=== PATIENT | male | born 1950 | race Caucasian/White ===

== ENCOUNTER 2017-09-05 15:00 | Outpatient (RCR) | payer MEDICARE, OTHER, SELFPAY | END 2017-09-06 | LOC: ST 15:00 | PROVIDERS: PCP Emergency Medicine; Visit Provider Emergency Medicine | DX: R13.10 Dysphagia, unspecified (principal) | CPT/HCPCS: G8996; G8997; G8998; 92526; 92610 ==

== ENCOUNTER → 2017-09-10 10:08 | Outpatient (POV) | payer MEDICARE, OTHER, SELFPAY | PROVIDERS: PCP Emergency Medicine; Visit Provider Otolaryngology | DX: Z00.00 Encounter for general adult medical examination without abnormal findings (principal) ==

== ENCOUNTER → 2017-12-10 09:04 | Outpatient (POV) | payer MEDICARE, OTHER, SELFPAY | PROVIDERS: PCP Emergency Medicine; Visit Provider Otolaryngology | DX: Z00.00 Encounter for general adult medical examination without abnormal findings (principal) ==

== ENCOUNTER → 2018-05-14 08:41 | Outpatient (CLI) | payer MEDICARE, OTHER, SELFPAY ==
[2018-05-14 08:55] LABS: Microscopic, Urine URINE MICROSCOPIC (MICROSCOPIC)
[2018-05-14 09:39] LABS: Appearance,Urine CLEAR (Clear); Bilirubin,Urine Negative (Negative); Blood, Urine 1+ (Negative); Color,Urine YELLOW (Yellow); Glucose,Urine (UA) Negative (Negative); Ketones,Urine Negative (Negative); Leukocyte Esterase,Urine Negative (Negative); Nitrate,Urine Negative (Negative); Protein,Urine Negative (Negative); Specific Gravity, Urine 1.025 (1.005-1.030)
[2018-05-14 09:47] LABS: Creatinine,Urine Random 231 mg/dL (20-320); Total Protein,Urine Random 31.5 mg/dL (0.0-11.9)
[2018-05-14 09:49] LABS: Basophils % 0.3 % (0.1-2.0); Hematocrit 33.3 % (42.0-52.0); Hemoglobin 11.1 g/dL (14.1-18.0); Lymphocytes # 0.7 K/mm3 (0.7-4.5); Lymphocytes % 15.8 K/mm3 (10-50); Mean Corpuscular HGB Conc 33.5 g/dL (31.8-35.4); Mean Corpuscular Hemoglobin 32.8 pg (27.0-31.2); Mean Corpuscular Volume 98.1 fl (80-94); Mean Platelet Volume 7.4 fl (7.4-10.4); Monocytes # 0.3 K/mm3 (0.1-1.0); Monocytes % 6.7 % (1.7-9.3); Neutrophils # 3.3 K/mm3 (1.8-7.8); Neutrophils % 76.2 % (37.0-80.0); Platelet Count 165 K/mm3 (142-424); Red Blood Count 3.39 M/mm3 (4.60-6.20); Red Cell Distribution Width 15.1 % (11.5-17.5); White Blood Count 4.4 K/mm3 (4.8-10.8)
[2018-05-14 09:50] LABS: Bacteria,Urine 1+ /lpf
[2018-05-14 10:26] LABS: Albumin Level 3.7 gm/dL (3.4-5.0); Anion Gap 11.5 mEq/L (5-15); Blood Urea Nitrogen 26 mg/dL (7-18); Calcium 8.9 mg/dL (8.5-10.1); Carbon Dioxide 29 mmol/L (21.0-32.0); Chloride 105 mmol/L (98-107); Creatinine,Serum 1.65 mg/dL (0.70-1.30); Estimated Glomerular Filt Rate 42 ml/min (>60); GFR (African American) 50 ML/MIN (>60); Glucose 115 mg/dL (74-106); Phosphorous 3.6 mg/dL (2.4-4.9); Sodium 141 mmol/L (136-145)
[2018-05-14 10:27] LABS: Potassium 4.5 mmoL/L (3.5-5.1)
[2018-05-15 20:02] LABS: Vitamin D 25 Hydroxy 28.7 ng/mL (30.0-100.0)
== END ==
PROVIDERS: PCP Emergency Medicine; Visit Provider Internal Medicine Nephrology
DX: N18.3 Chronic kidney disease, stage 3 (moderate) (principal)
CPT/HCPCS: 36415; 80069; 81001; 82570; 82652; 84155; 85025

== ENCOUNTER → 2018-05-15 12:33 | Outpatient (POV) | payer MEDICARE, OTHER, SELFPAY | PROVIDERS: PCP Emergency Medicine; Visit Provider Internal Medicine Nephrology | DX: Z00.00 Encounter for general adult medical examination without abnormal findings (principal) ==

== ENCOUNTER → 2018-05-19 10:25 | Outpatient (CLI) | payer MEDICARE, OTHER, SELFPAY ==
--- NOTE | 2018-05-19 10:28 | US_ITS ---
US kidney retroperitoneal comp HISTORY: ITS.REASON: HEMATURIA,HISTORY OF RENAL CELL CANCER ORDERING PHYSICIAN: Everardo Waters MD PATIENT AGE: 67 years Comparison: None FINDINGS: There has been prior left nephrectomy. The right kidney has an unremarkable appearance at 13 x 6 cm. The cortex is preserved. There is a 1 cm cyst projecting off the mid aspect of the right kidney anteriorly. No suspicious renal mass evident a 4.7 x 4 cm cyst projects off the lower pole the right kidney exophytic in nature. No solid renal lesions apparent. No obvious renal calculi. No hydronephrosis. IMPRESSION: 1. There are 2 renal cysts at 1 and 5 cm 2. Prior left nephrectomy
== END ==
PROVIDERS: PCP Emergency Medicine; Visit Provider Urology
DX: R31.9 Hematuria, unspecified (principal); Z85.528 Personal history of other malignant neoplasm of kidney
CPT/HCPCS: 76770

== ENCOUNTER → 2018-06-27 11:06 | Outpatient (CLI) | payer MEDICARE, OTHER, SELFPAY ==
--- NOTE | 2018-06-27 11:13 | MR_ITS ---
MR head/brain wo con HISTORY: ITS.REASON: parkinsons disease ORDERING PHYSICIAN: Genoveva Kwok MD PATIENT AGE: 67 years Comparison: None TECHNIQUE: Standard multiplanar multiecho sequences are performed without contrast. FINDINGS: No midline shift, mass effect, intracranial hemorrhage, or hydrocephalus is evident. There is generalized atrophy with scattered periventricular and subcortical T2 white matter hyperintensities. 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 The cerebellopontine angles, cerebellum, and brainstem are unremarkable. No acute infarction evident. The pituitary and optic chiasm and craniocervical junction are unremarkable. No mastoid effusion or sinus air-fluid level. IMPRESSION: 1. Diffuse atrophy. 2. There are scattered periventricular and subcortical T2 white matter hyperintensities which may be due to ischemic gliotic change from microvascular disease with old bilateral lacunar infarctions 3. No acute intracranial findings.
== END ==
PROVIDERS: PCP Emergency Medicine; Visit Provider Specialist
DX: G20 Parkinson's disease (principal); K11.7 Disturbances of salivary secretion
CPT/HCPCS: 70551

== ENCOUNTER 2018-09-10 12:11 | Inpatient (IN) ==
--- NOTE | 2018-09-10 13:06 | Emergency Department Note ---
ED Disposition Clinical Impression: Dehydration Acute renal failure Qualifiers: Acute renal failure type: unspecified Qualified Code(s): N17.9 - Acute kidney failure, unspecified Disposition: Still a Patient Condition on Discharge: Fair Referrals: Charly Barber APRN [Primary Care Provider] - - Critical Care Critical Care Time: Yes Attestation: On 09/10/18, the high probability of a clinically significant, sudden or life threatening deterioration of the following system(s) required my full and direct attention, intervention and personal management. The time I documented below is in addition to time spent performing reported procedures but includes the following listed in this critical care notation. Total Critical Care Time: 30 Vital system(s) involved:: Renal Failure My critical care processes included: Assessment & monitoring of V/S, Initial and Re-exams, Data Review/Interpretation, Coordinating Care, Medication Orders and management, Documentation Medical Decision Making - Antoine Inquiry Pt receiving controlled substance: No Vital Signs: 09/10/18 12:25 Temperature 98 F Temperature Source Oral Pulse Rate [Left Radial] 62 Respiratory Rate 16 Blood Pressure [Right Arm] 120/70 Blood Pressure Mean [Right Arm] 86 Blood Pressure Source [Right Arm] Automatic Cuff Blood Pressure Position [Right Arm] Sitting 02 Sat by Pulse Oximetry 98 Oxygen Delivery Method Room Air - Lab Data Lab Results 09/10/18 13:25: WBC 6.5, RBC 3.84 L, Hgb 12.0 L, Hct 35.2 L, MCV 91.6, MCH 31.1, MCHC 34.0, RDW 13.9, Plt Count 144, MPV 9.4, Neut % (Auto) 81.2 H, Lymph % (Auto) 12.1, Carbon % (Auto) 5.4, Eos % (Auto) 0.9, Baso % (Auto) 0.4, Neut # (Auto) 5.3, Lymph # (Auto) 0.8, Carbon # (Auto) 0.4, Eos # (Auto) 0.1, Baso # (Auto) 0.0 09/10/18 13:25: Sodium 135 L, Potassium 4.4, Chloride 96 L, Carbon Dioxide 30, Anion Gap 13.4, BUN 54 H, Creatinine 2.93 H, Estimated Creat Clear 32, Estimated GFR 21 L, Est GFR ( Amer) 26 L, Glucose 123 H, Calcium 9.0, Total Bilirubin 1.3 H, AST 13 L, ALT 10 L, Alkaline Phosphatase 109, Troponin I < 0.02, Total Protein 7.5, Albumin 4.2, Globulin 3.3 H, Albumin/Globulin Ratio 1.3 Result diagrams: 09/10/18 13:25 09/10/18 13:25 Orders (Tests/Meds): ED MEDICATIONS Generic Name Dose Route Start Last Admin Trade Name Freq PRN Reason Stop Dose Admin Sodium Chloride 10 ml 09/10/18 12:41 Saline Flush 10ml Syringe IV 10/10/18 12:40 NEEDED PRN Maintain IV Site Discontinued Medications Generic Name Dose Route Start Last Admin Trade Name Freq PRN Reason Stop Dose Admin Sodium Chloride 1,000 ml 09/10/18 13:19 Sod Chlor 0.9% 1000ml Bag IV 09/10/18 13:20 BOLUS ONE ORDERS Category Date Time Status Urinalysis and Microscopic Stat Lab 09/10/18 13:20 Ordered ECG Request by /Nse Stat Y 09/10/18 12:40 Ordered - Radiology Data #1 Image(s): Chest Image Reviewed: Yes I have reviewed radiologist's interpretation Preliminary Findings: Normal/NAD - ECG Data Tracing #1 EKG interpreted by Kervin Theodore MD: Rhythm: sinus Rate: 61 [place]: normal Ectopy: none Conduction: normal ST Segment Changes: none T Wave Changes: none Q Waves: none No evidence of acute ischemia or injury - Physician Consults Physician Consulted: Charly Barber NP for Dr. Garcia Time: 14:09 Reason -: Admission Comment/Response: Agrees to admit the patient to the hospital. We discussed the patient's clinical information, including history, exam, laboratory and radiology results and ED course. Per hospital procedure, I will write temporary bridge inpatient orders on the patient. Specific orders requested by the admitting physician: Admit to Dr. Garcia, hydration General Adult HPI - General Chief complaint: Nausea/Vomiting/Diarrhea Stated complaint: no appetite dizzy nauseated Time Seen by Provider: 09/10/18 13:06 Mode of Arrival: Ambulatory Limitations: No Limitations Description of Symptoms (Recalled from ER Triage Doc. by RN): to ed per pvt car pt sent by pcp to ed for eval due to nausea, vomiting, fatique x several weeks pt's SO states pt dx with parkinson's 2-3months ago, meds "made him sick" pt has been taken off all parkinson's meds since Saturday 09/08. nail beds cyanotic cap refill 4sec - History of Present Illness HPI narrative: History obtained from patient and . Patient sent into the emergency room from the office by Charly Barber NP for Dr. Garcia, where he was being seen for an office visit. He was diagnosed with Parkinson's disease a couple of months ago. He has been started on medications and after starting the medications has had no appetite, nausea, weight loss of 30 pounds over 5 weeks, urine and stool are dark and smelly. Only drinking 1 lemon [place] soda a day. Saw his neurologist on Saturday 2 days ago and Parkinson's medications were stopped due to the side effects. states that they were told the medication should be out of his system within a couple of days and the nausea should be gone. This has not happened, therefore they followed up with his primary care provider who sent him to the emergency room. also states that primary care provider wanted to get a colonoscopy. states only has one kidney. - Related Data Home Medications Medication Instructions Recorded Confirmed aspirin 81 mg tablet,delayed 81 mg PO QDAY 09/30/17 09/10/18 release hydrochlorothiazide 25 mg tablet 25 mg PO QDAY 09/30/17 09/10/18 lisinopril 40 mg tablet 40 mg PO QDAY 09/30/17 09/10/18 Indapamide [Lozol 2.5mg tablet] 2.5 mg PO QAM 09/10/18 09/10/18 Metoprolol Tartrate [Lopressor 25 mg PO BID 09/10/18 09/10/18 25mg tablet] Pioglitazone HCl 30 mg PO QDAY 09/10/18 09/10/18 Simvastatin 20 mg PO QPM 09/10/18 09/10/18 Allergies Allergy/AdvReac Type Severity Reaction Status Date / Time No Known Allergies Allergy Verified 09/10/18 11:55 [facility] History - Hepatitis A Screen Drug use history?: No High risk sexual behaviors?: No History of sexually transmitted infection?: No Currently employed?: No Childcare worker?: No Do you have indoor plumbing?: Yes Do you have electricity?: Yes Attestation statement:: This patient has been screened for Hepatitis A risk factors. Medical History: Reports:: Cancer, Cerebrovascular Accident, Diabetes Mellitus Type 2, Hiatal Hernia, Hyperlipidemia, Hypertension Other Medical History: Reports: Cataracts Other Surgeries: Yes: Appendectomy, Cancer Surgery, Hernia Repair, Other Amputation: No Fractures: No Comment: LT kidney removed - Social History Smoking Status: Former smoker Alcohol Intake: never Alcohol Intake Frequency:: a few times a week Substance Use Type: denies use Occupational Status: retired Housing: house Household Members: family - Psychiatric History Expresses thoughts of harming self/others: None Suicide Plan Description: No Plan Family Hx:: Coronary Artery Disease ROS Obtained: Yes All systems reviewed & no additional complaints - Constitutional Constitutional: Denies fever(s), Reports poor appetite, Reports weight loss, Reports other (No pain of any kind) - Cardiovascular Cardiovascular: Denies chest pain - Respiratory Respiratory: No cough, No dyspnea - Gastrointestinal Gastrointestingal: Reports: as per HPI, nausea. Denies: abdominal pain Physical Exam - General General appearance: alert, in no apparent distress - Head Head exam: atraumatic, normocephalic - Eye Eye exam: Present: normal appearance, PERRL, EOMI - ENT ENT exam: Present: mucous membranes dry - Neck Neck exam: Present: normal inspection, trachea midline - Respiratory Respiratory exam: Present: normal lung sounds bilaterally. Absent: respiratory distress - Cardiovascular Cardiovascular exam: Present: regular rate, normal rhythm, normal heart sounds - Abdominal Exam Abdominal exam: Present: soft. Absent: distention, tenderness - Extremities Exam Extremities exam: Present: normal inspection, other (At the time of my exam, color of fingers is normal with normal capillary refill less than 2 seconds) - Neurological Exam Neurological exam: Present: alert, oriented X3 - Psychiatric Psychiatric exam: Present: flat affect - Skin Skin exam: Present: warm, dry
[2018-09-10 13:36] LABS: Basophils % 0.4 % (0.1-2.0); Eosinophils # 0.1 K/mm3 (0.0-0.4); Eosinophils % 0.9 % (0.1-12.0); Hematocrit 35.2 % (42.0-52.0); Lymphocytes # 0.8 K/mm3 (0.7-4.5); Lymphocytes % 12.1 % (10-50); Mean Corpuscular Hemoglobin 31.1 pg (27.0-31.2); Mean Corpuscular Volume 91.6 fl (80-94); Mean Platelet Volume 9.4 fl (7.4-10.4); Monocytes # 0.4 K/mm3 (0.1-1.0); Monocytes % 5.4 % (1.7-9.3); Neutrophils # 5.3 K/mm3 (1.8-7.8); Neutrophils % 81.2 % (37.0-80.0); Platelet Count 144 K/mm3 (142-424); Red Blood Count 3.84 M/mm3 (4.60-6.20); Red Cell Distribution Width 13.9 % (11.5-17.5); White Blood Count 6.5 K/mm3 (4.8-10.8)
[2018-09-10 13:51] LABS: Alanine Aminotransferase 10 U/L (12-78); Albumin Level 4.2 gm/dL (3.4-5.0); Albumin/Globulin Ratio 1.3 (1.1-1.8); Alkaline Phosphatase 109 U/L (46-116); Anion Gap 13.4 mEq/L (5-15); Aspartate Amino Transferase 13 U/L (15-37); Bilirubin,Total 1.3 mg/dL (0.2-1.0); Blood Urea Nitrogen 54 mg/dL (7-18); Carbon Dioxide 30 mmol/L (21.0-32.0); Chloride 96 mmol/L (98-107); Globulin 3.3 gm/dl (1.3-3.2); Glucose 123 mg/dL (74-106); Potassium 4.4 mmoL/L (3.5-5.1); Sodium 135 mmol/L (136-145); Total Protein,Serum 7.5 gm/dL (6.4-8.2)
[2018-09-10 14:15] LABS: Microscopic, Urine URINE MICROSCOPIC (MICROSCOPIC)
[2018-09-10 14:37] LABS: Appearance,Urine CLEAR (Clear); Blood, Urine Negative (Negative); Color,Urine YELLOW (Yellow); Glucose,Urine (UA) Negative (Negative); Ketones,Urine Negative (Negative); Leukocyte Esterase,Urine Negative (Negative); PH,Urine 5.5 (5.0-8.5); Protein,Urine Negative (Negative); Specific Gravity, Urine >= 1.030 (1.005-1.030)
[2018-09-10 14:40] LABS: Bilirubin,Urine Negative (Negative)
[2018-09-10 14:55] LABS: Bacteria,Urine 2+ /lpf
--- NOTE | 2018-09-10 15:10 | Pharmacy Consult Notes ---
[facility] Pharmacy VTE Monitoring - Patient Demographics Admission date: 09/10/18 Report Date: 09/10/18 Time: 15:09 Allergies/Adverse Reactions: Patient Allergies No Known Allergies Allergy (Verified 09/10/18 11:55) Height: 1.75 m Weight: 94.801 kg Patient Problems: Current Active Problems Dehydration (Acute) Acute renal failure (Acute) - VTE Risk Labs: VTE Related Lab Results Hgb 12.0 g/dL (14.1-18.0) L 09/10/18 13:25 Hct 35.2 % (42.0-52.0) L 09/10/18 13:25 Plt Count 144 K/mm3 (142-424) 09/10/18 13:25 BUN 54 mg/dL (7-18) H 09/10/18 13:25 Creatinine 2.93 mg/dL (0.70-1.30) H 09/10/18 13:25 Estimated Creat Clear 32 mL/min (50-200) 09/10/18 13:25 Was VTE Risk Assessment Performed: Yes VTE Score: 4 VTE Risk Level: Low Risk Clinical Trial Participant: No - Prophylaxis VTE Prophylaxis Ordered?: Yes Types of VTE Prophylaxis: TEDS Knee High
[2018-09-11 07:24] LABS: Calcium 8.3 mg/dL (8.5-10.1)
--- NOTE | 2018-09-11 09:08 | History & Physical Report ---
*Admission Date: 09/10/18 *Chief complaint: nausea/vomiting *History of present illness: 68-year-old male presented to the ER with complaints of nausea, weakness,vomiting and decreased appetite with weight loss. Patient was seen in the office sent to the ER for evaluation due to the lethargic and weakness. states he was diagnosed with Parkinson's disease a couple of months ago and he has been started on medications. After starting the medications has had no appetite, nausea, weight loss of 30 pounds over 5 weeks, urine and stool are dark and smelly. Saturday 2 days ago was seen by the neurologist and Parkinson's medications were stopped due to the side effects. states that they were told the medication should be out of his system within a couple of days and the nausea should be gone. states still having all the symptoms even after stopping medications. states only has one kidney. Patient admitted for acute kidney failure for IV hydration and surgery consult for nausea vomiting and weight loss. [facility] History I have reviewed the patient's past medical history: Yes Medical History: Reports:: Cancer (left kidney removed 2007), Cerebrovascular Accident, Diabetes Mellitus Type 1, Diabetes Mellitus Type 2, Hiatal Hernia, Hyperlipidemia, Hypertension Denies:: MRSA Other Medical History: Reports: Cataracts Other Surgeries: Yes: Appendectomy, Cancer Surgery, Hernia Repair, Other Amputation: No Fractures: No - *Social History Educational Level: Attended College Smoking Status: Former smoker Tobacco Type: cigarettes #Yrs smoked (if former smoker): 30 Smoking End Date: 09/09/2003 Alcohol Intake: never Alcohol Intake Frequency:: a few times a week Substance Use Type: denies use Occupational Status: retired Housing: house Household Members: spouse, family - Psychiatric History Expresses thoughts of harming self/others: None Suicide Plan Description: No Plan *Family Hx:: Coronary Artery Disease Review of Systems - Review of Systems Review of systems:: pertinent systems reviewed and negative unless documented below - Constitutional Reports fatigue, Reports malaise, Reports weakness, Reports weight loss - Eyes Denies change in vision - ENT Denies change in voice - *Cardiovascular Denies chest pain with activity - *Respiratory Denies cough - *Gastrointestinal Reports nausea, Reports vomiting, Denies change in bowel habits, Denies coffee ground vomit, Denies black, tarry stools - *Genitourinary Denies difficulty urinating - *Musculoskeletal Reports muscle weakness, Denies decreased muscle mass - Integumentary/Breasts Denies change in hair, Denies rash - *Neurologic Denies dizziness, Denies fainting - Psychiatric Denies anxiety - Endocrine Denies heat intolerance - Hematologic/Lymphatic Denies enlarged lymph nodes - Allergic/Immunologic Denies lip swelling Meds Home Medications Medication Instructions Recorded Confirmed Type aspirin 81 mg tablet,delayed 81 mg PO DAILY 09/30/17 09/11/18 History release hydrochlorothiazide 25 mg tablet 25 mg PO DAILY 09/30/17 09/11/18 History lisinopril 40 mg tablet 40 mg PO DAILY 09/30/17 09/11/18 History Indapamide [Lozol 2.5mg tablet] 2.5 mg PO DAILY 09/10/18 09/11/18 History Metoprolol Tartrate [Lopressor 25 mg PO BID 09/10/18 09/10/18 History 25mg tablet] Simvastatin 20 mg PO HS 09/10/18 09/11/18 History Omeprazole [Omeprazole 20mg 20 mg PO DAILY 09/11/18 09/11/18 History Capsule] Pioglitazone HCl 30 mg PO DAILY 09/11/18 09/11/18 History Allergies Allergy/AdvReac Type Severity Reaction Status Date / Time No Known Allergies Allergy Verified 09/10/18 11:55 Exam Vital signs and Labs for Last 24 Hours: Temp Pulse Resp BP Pulse Ox 98.9 F 71 18 137/64 96 09/11/18 08:00 09/11/18 08:00 09/11/18 08:00 09/11/18 08:00 09/11/18 08:00 Laboratory Results - last 24 hr 09/10/18 13:25: WBC 6.5, RBC 3.84 L, Hgb 12.0 L, Hct 35.2 L, MCV 91.6, MCH 31.1, MCHC 34.0, RDW 13.9, Plt Count 144, MPV 9.4, Neut % (Auto) 81.2 H, Lymph % (Auto) 12.1, [place] % (Auto) 5.4, Eos % (Auto) 0.9, Baso % (Auto) 0.4, Neut # (Auto) 5.3, Lymph # (Auto) 0.8, [place] # (Auto) 0.4, Eos # (Auto) 0.1, Baso # (Auto) 0.0 09/10/18 13:25: Sodium 135 L, Potassium 4.4, Chloride 96 L, Carbon Dioxide 30, Anion Gap 13.4, BUN 54 H, Creatinine 2.93 H, Estimated Creat Clear 32, Estimated GFR 21 L, Est GFR ( Amer) 26 L, Glucose 123 H, Calcium 9.0, Total Bilirubin 1.3 H, AST 13 L, ALT 10 L, Alkaline Phosphatase 109, Troponin I < 0.02, Total Protein 7.5, Albumin 4.2, Globulin 3.3 H, Albumin/Globulin Ratio 1.3 09/10/18 14:09: Urine Color Yellow, Urine Appearance Clear, Urine pH 5.5, Ur Specific [place] >= 1.030, Urine Protein Negative, Urine Glucose (UA) Negative, Urine Ketones Negative, Urine Blood Negative, Urine Nitrate Negative, Urine Bilirubin Negative, Urine Urobilinogen 1.0, Ur Leukocyte Esterase Negative, Urine RBC None, Urine WBC 3-5, Ur Squamous Epith Cells 3-5, Urine Bacteria 2+ 09/10/18 16:32: POC Glucose 82 09/10/18 18:25: Stool Occult Blood Negative 09/10/18 21:05: POC Glucose 102 09/11/18 05:55: POC Glucose 88 09/11/18 06:41: Sodium 138, Potassium 4.0, Chloride 103, Carbon Dioxide 28, Anion Gap 11.0, BUN 45 H, Creatinine 2.08 H D, Estimated Creat Clear 45, Estimated GFR 32 L, Est GFR ( Amer) 39 L D, Glucose 88 D, Calcium 8.3 L I & O for Last 24 hours: Intake & Output 09/08/18 09/09/18 09/10/18 09/11/18 11:59 11:59 11:59 11:59 Intake Total 3202 / 3202 Output Total 300 / 300 Balance 2902 / 2902 Weight 207 lb 9.008 oz Microbiology Reports for the Last 24 Hours: Microbiology 09/10/18 14:09 Urine,Clean Catch Urine Culture - Preliminary - *Routine HEENT Exam Head: Present: normocephalic Eye: Present: PERRL ENT: Present: mucous membranes moist - *Routine Neck Exam Present: supple. Absent: lymphadenopathy - *Routine Respiratory Exam Present: CTA bilaterally - *Routine Cardiovascular Exam Present: RRR - *Routine Abdominal Exam Present: soft. Absent: tenderness Comments: Hyperactive bowel sounds - *Routine Extremities Exam Absent: cyanosis, clubbing, edema - *Routine Skin Exam Present: warm. Absent: rash - *Routine Neurological Exam Present: alert, oriented X3 Assessment and Plan - Assessment and plan all Dx Assessment and Plan for all problems:: Radha will round later today all orders per Dr. Garcia Today patient is more alert and better color Surgery consult Continue hydration creatinine improved slightly.
--- NOTE | 2018-09-11 11:31 | Consult Report ---
*Admission Date: 09/10/18 *Chief complaint: Nausea, vomiting, weight loss *History of present illness: This is a 68-year-old gentleman seen in consultation from his primary provider for evaluation regarding nausea, vomiting, and weight loss. Please see HPI from admission H&P copied below: 68-year-old male presented to the ER with complaints of nausea, weakness,vomiting and decreased appetite with weight loss. Patient was seen in the office sent to the ER for evaluation due to the lethargic and weakness. states he was diagnosed with Parkinson's disease a couple of months ago and he has been started on medications. After starting the medications has had no appetite, nausea, weight loss of 30 pounds over 5 weeks, urine and stool are dark and smelly. Saturday 2 days ago was seen by the neurologist and Parkinson's medications were stopped due to the side effects. states that they were told the medication should be out of his system within a couple of days and the nausea should be gone. states still having all the symptoms even after stopping medications. states only has one kidney. Patient admitted for acute kidney failure for IV hydration and surgery consult for nausea vomiting and weight loss. Review of Systems - Constitutional Reports anorexia - Eyes Denies change in vision - ENT Denies change in voice - *Cardiovascular Denies chest pain - *Respiratory Denies cough - *Gastrointestinal Reports nausea, Reports vomiting, Denies abdominal pain - *Neurologic Reports weakness, Denies dizziness, Denies fainting - Hematologic/Lymphatic Denies easy bleeding [facility] History Medical History: Reports:: Cancer (left kidney removed 2007), Cerebrovascular Accident, Diabetes Mellitus Type 1, Diabetes Mellitus Type 2, Hiatal Hernia, Hyperlipidemia, Hypertension Denies:: MRSA Other Medical History: Reports: Cataracts Other Surgeries: Yes: Appendectomy, Cancer Surgery, Hernia Repair, Other Amputation: No Fractures: No - *Social History Educational Level: Attended College Smoking Status: Former smoker Tobacco Type: cigarettes #Yrs smoked (if former smoker): 30 Smoking End Date: 09/09/2003 Alcohol Intake: never Alcohol Intake Frequency:: a few times a week Substance Use Type: denies use Occupational Status: retired Housing: house Household Members: spouse, family - Psychiatric History Expresses thoughts of harming self/others: None Suicide Plan Description: No Plan *Family Hx:: Coronary Artery Disease Meds Home Medications Medication Instructions Recorded Confirmed Type aspirin 81 mg tablet,delayed 81 mg PO DAILY 09/30/17 09/11/18 History release hydrochlorothiazide 25 mg tablet 25 mg PO DAILY 09/30/17 09/11/18 History lisinopril 40 mg tablet 40 mg PO DAILY 09/30/17 09/11/18 History Indapamide [Lozol 2.5mg tablet] 2.5 mg PO DAILY 09/10/18 09/11/18 History Metoprolol Tartrate [Lopressor 25 mg PO BID 09/10/18 09/10/18 History 25mg tablet] Simvastatin 20 mg PO HS 09/10/18 09/11/18 History Omeprazole [Omeprazole 20mg 20 mg PO DAILY 09/11/18 09/11/18 History Capsule] Pioglitazone HCl 30 mg PO DAILY 09/11/18 09/11/18 History Allergies Allergy/AdvReac Type Severity Reaction Status Date / Time No Known Allergies Allergy Verified 09/10/18 11:55 Exam Vital signs and Labs for Last 24 Hours: Temp Pulse Resp BP Pulse Ox 98.9 F 71 18 137/64 96 09/11/18 08:00 09/11/18 08:00 09/11/18 08:00 09/11/18 08:00 09/11/18 08:00 Laboratory Results - last 24 hr 09/10/18 13:25: WBC 6.5, RBC 3.84 L, Hgb 12.0 L, Hct 35.2 L, MCV 91.6, MCH 31.1, MCHC 34.0, RDW 13.9, Plt Count 144, MPV 9.4, Neut % (Auto) 81.2 H, Lymph % (Auto) 12.1, [place] % (Auto) 5.4, Eos % (Auto) 0.9, Baso % (Auto) 0.4, Neut # (Auto) 5.3, Lymph # (Auto) 0.8, [place] # (Auto) 0.4, Eos # (Auto) 0.1, Baso # (Auto) 0.0 09/10/18 13:25: Sodium 135 L, Potassium 4.4, Chloride 96 L, Carbon Dioxide 30, Anion Gap 13.4, BUN 54 H, Creatinine 2.93 H, Estimated Creat Clear 32, Estimated GFR 21 L, Est GFR ( Amer) 26 L, Glucose 123 H, Calcium 9.0, Total Bili mitchell 1.3 H, AST 13 L, ALT 10 L, Alkaline Phosphatase 109, Troponin I < 0.02, Total Protein 7.5, Albumin 4.2, Globulin 3.3 H, Albumin/Globulin Ratio 1.3 09/10/18 14:09: Urine Color Yellow, Urine Appearance Clear, Urine pH 5.5, Ur Specific [place] >= 1.030, Urine Protein Negative, Urine Glucose (UA) Negative, Urine Ketones Negative, Urine Blood Negative, Urine Nitrate Negative, Urine Bi lirubin Negative, Urine Urobilinogen 1.0, Ur Leukocyte Esterase Negative, Urine RBC None, Urine WBC 3-5, Ur Squamous Epith Cells 3-5, Urine Bacteria 2+ 09/10/18 16:32: POC Glucose 82 09/10/18 18:25: Stool Occult Blood Negative 09/10/18 21:05: POC Glucose 102 09/11/18 05:55: POC Glucose 88 09/11/18 06:41: Sodium 138, Potassium 4.0, Chloride 103, Carbon Dioxide 28, Anion Gap 11.0, BUN 45 H, Creatinine 2.08 H D, Estimated Creat Clear 45, Estimated GFR 32 L, Est GFR ( Amer) 39 L D, Glucose 88 D, Calcium 8.3 L I & O for Last 24 hours: Intake & Output 09/08/18 09/09/18 09/10/18 09/11/18 11:59 11:59 11:59 11:59 Intake Total 3202 / 3202 Output Total 300 / 300 Balance 2902 / 2902 Weight 207 lb 9.008 oz Microbiology Reports for the Last 24 Hours: Microbiology 09/10/18 14:09 Urine,Clean Catch Urine Culture - Preliminary - Constitutional no acute distress - *Routine Respiratory Exam Absent: respiratory distress - *Routine Cardiovascular Exam Present: RRR - *Routine Abdominal Exam Present: soft Results - Labs 09/10/18 13:25 09/11/18 06:41 Laboratory Results - last 24 hr 09/10/18 13:25: WBC 6.5, RBC 3.84 L, Hgb 12.0 L, Hct 35.2 L, MCV 91.6, MCH 31.1, MCHC 34.0, RDW 13.9, Plt Count 144, MPV 9.4, Neut % (Auto) 81.2 H, Lymph % (Auto) 12.1, [place] % (Auto) 5.4, Eos % (Auto) 0.9, Baso % (Auto) 0.4, Neut # (Auto) 5.3, Lymph # (Auto) 0.8, [place] # (Auto) 0.4, Eos # (Auto) 0.1, Baso # (Auto) 0.0 09/10/18 13:25: Sodium 135 L, Potassium 4.4, Chloride 96 L, Carbon Dioxide 30, Anion Gap 13.4, BUN 54 H, Creatinine 2.93 H, Estimated Creat Clear 32, Estimated GFR 21 L, Est GFR ( Amer) 26 L, Glucose 123 H, Calcium 9.0, Total Bilirubin 1.3 H, AST 13 L, ALT 10 L, Alkaline Phosphatase 109, Troponin I < 0.02, Total Protein 7.5, Albumin 4.2, Globulin 3.3 H, Albumin/Globulin Ratio 1.3 09/10/18 14:09: Urine Color Yellow, Urine Appearance Clear, Urine pH 5.5, Ur Specific [place] >= 1.030, Urine Protein Negative, Urine Glucose (UA) Negative, Urine Ketones Negative, Urine Blood Negative, Urine Nitrate Negative, Urine Bilirubin Negative, Urine Urobilinogen 1.0, Ur Leukocyte Esterase Negative, Urine RBC None, Urine WBC 3-5, Ur Squamous Epith Cells 3-5, Urine Bacteria 2+ 09/10/18 16:32: POC Glucose 82 09/10/18 18:25: Stool Occult Blood Negative 09/10/18 21:05: POC Glucose 102 09/11/18 05:55: POC Glucose 88 09/11/18 06:41: Sodium 138, Potassium 4.0, Chloride 103, Carbon Dioxide 28, Anion Gap 11.0, BUN 45 H, Creatinine 2.08 H D, Estimated Creat Clear 45, Estimated GFR 32 L, Est GFR ( Amer) 39 L D, Glucose 88 D, Calcium 8.3 L Assessment and Plan (1) Nausea & vomiting Current visit: Yes Status: Acute Category: Medical Code(s): R11.2 - Nausea with vomiting, unspecified The symptoms are still potentially related to his recent usage of parkinsonian medications. Although he has been told that the medicines are "out of (his) system", prolonged effects are possible. UGI/SBFT has been ordered for tomorrow Possible outpatient esophagogastroduodenoscopy (2) Weight loss Current visit: Yes Status: Acute Category: Medical Code(s): R63.4 - Abnormal weight loss Plan for outpatient colonoscopy (pending results of small bowel follow-through) in the near future. Outpatient colonoscopy will most likely be combined with outpatient EGD. (3) Acute renal failure Current visit: Yes Status: Acute Qualifiers: Acute renal failure type: unspecified Qualified Code(s): N17.9 - Acute kidney failure, unspecified Category: Medical Code(s): N17.9 - Acute kidney failure, unspecified (4) Dehydration Current visit: Yes Status: Acute Category: Medical Code(s): E86.0 - Dehydration
--- NOTE | 2018-09-12 06:51 | Progress Note ---
Subjective Patient reports: nausea (Some nausea, but no emesis yesterday evening) Exam Vital signs and Labs for Last 24 Hours: Temp Pulse Resp BP Pulse Ox 97.6 F 79 19 154/73 H 96 09/12/18 04:00 09/12/18 04:00 09/12/18 04:00 09/12/18 04:00 09/12/18 04:00 Laboratory Results - last 24 hr 09/11/18 06:41: Sodium 138, Potassium 4.0, Chloride 103, Carbon Dioxide 28, Anion Gap 11.0, BUN 45 H, Creatinine 2.08 H D, Estimated Creat Clear 45, Estimated GFR 32 L, Est GFR ( Amer) 39 L D, Glucose 88 D, Calcium 8.3 L 09/11/18 11:55: POC Glucose 86 09/11/18 17:02: POC Glucose 83 09/12/18 05:57: POC Glucose 81 I & O for Last 24 hours: Intake & Output 09/09/18 09/10/18 09/11/18 09/12/18 11:59 11:59 11:59 11:59 Intake Total 3202 / 3202 4356 / 4356 Output Total 300 / 300 700 / 700 Balance 2902 / 2902 3656 / 3656 Weight 207 lb 9.008 oz Microbiology Reports for the Last 24 Hours: Microbiology 09/10/18 14:09 Urine,Clean Catch Urine Culture - Preliminary - Constitutional no acute distress - *Routine Respiratory Exam Absent: respiratory distress - *Routine Cardiovascular Exam Present: RRR - *Routine Abdominal Exam Present: soft Progress Note: A&P (1) Nausea & vomiting Status: Acute Assessment and plan: Small bowel follow-through pending Likely outpatient EGD/colonoscopy in near future Current Visit: Yes (2) Weight loss Status: Acute Current Visit: Yes (3) Acute renal failure Status: Acute Current Visit: Yes (4) Dehydration Status: Acute Current Visit: Yes
[2018-09-12 07:20] LABS: Basophils % 0.3 % (0.1-2.0); Eosinophils # 0.1 K/mm3 (0.0-0.4); Eosinophils % 1.8 % (0.1-12.0); Hematocrit 33.3 % (42.0-52.0); Hemoglobin 11.1 g/dL (14.1-18.0); Lymphocytes % 22.5 % (10-50); Mean Corpuscular HGB Conc 33.3 g/dL (31.8-35.4); Mean Platelet Volume 9.9 fl (7.4-10.4); Monocytes # 0.3 K/mm3 (0.1-1.0); Monocytes % 6.2 % (1.7-9.3); Neutrophils % 69.1 % (37.0-80.0); Platelet Count 116 K/mm3 (142-424); Red Blood Count 3.58 M/mm3 (4.60-6.20); Red Cell Distribution Width 13.9 % (11.5-17.5); White Blood Count 4.4 K/mm3 (4.8-10.8)
[2018-09-12 07:53] LABS: Anion Gap 15.2 mEq/L (5-15); Calcium 8.3 mg/dL (8.5-10.1); Potassium 4.2 mmoL/L (3.5-5.1)
--- NOTE | 2018-09-12 08:48 | Progress Note ---
Internal Medicine - PN: Subj *Date: 09/12/18 *Time: 08:45 Interval history: pt reports nausea and dry heaves throughout the night. mild abd tenderness at umbilicus Exam Vital signs and Labs for Last 24 Hours: Temp Pulse Resp BP Pulse Ox 97.9 F 69 18 128/59 L 92 L 09/12/18 08:00 09/12/18 08:00 09/12/18 08:00 09/12/18 08:00 09/12/18 08:00 Laboratory Results - last 24 hr 09/11/18 11:55: POC Glucose 86 09/11/18 17:02: POC Glucose 83 09/12/18 05:57: POC Glucose 81 09/12/18 07:00: WBC 4.4 L D, RBC 3.58 L, Hgb 11.1 L, Hct 33.3 L, MCV 93.0, MCH 31.0, MCHC 33.3, RDW 13.9, Plt Count 116 L, MPV 9.9, Neut % (Auto) 69.1, Lymph % (Auto) 22.5, [place] % (Auto) 6.2, Eos % (Auto) 1.8, Baso % (Auto) 0.3, Neut # (Auto) 3.0, Lymph # (Auto) 1.0, [place] # (Auto) 0.3, Eos # (Auto) 0.1, Baso # (Auto) 0.0 09/12/18 07:00: Sodium 140, Potassium 4.2, Chloride 106, Carbon Dioxide 23, Anion Gap 15.2 H, BUN 26 H D, Creatinine 1.48 H D, Estimated Creat Clear 63, Estimated GFR 47 L, Est GFR ( Amer) 57 L D, Glucose 82, Calcium 8.3 L I & O for Last 24 hours: Intake & Output 09/09/18 09/10/18 09/11/18 09/12/18 11:59 11:59 11:59 11:59 Intake Total 3202 / 3202 4356 / 4356 Output Total 300 / 300 700 / 700 Balance 2902 / 2902 3656 / 3656 Weight 207 lb 9.008 oz Microbiology Reports for the Last 24 Hours: Microbiology 09/10/18 14:09 Urine,Clean Catch Urine Culture - Final Multiple organisms, suggests contamination. - *Routine HEENT Exam Head: Present: normocephalic Eye: Present: PERRL ENT: Present: mucous membranes moist - *Routine Neck Exam Present: supple. Absent: lymphadenopathy - *Routine Respiratory Exam Present: CTA bilaterally - *Routine Cardiovascular Exam Present: RRR - *Routine Abdominal Exam Present: soft, normoactive bowel sounds, tenderness. Absent: distended - *Routine Extremities Exam Present: full ROM. Absent: cyanosis, clubbing, edema - *Routine Skin Exam Present: warm. Absent: rash - *Routine Neurological Exam Present: alert, oriented X3 Assessment and Plan (1) Nausea & vomiting Current visit: Yes Status: Acute Category: Medical Code(s): R11.2 - Nausea with vomiting, unspecified (2) Weight loss Current visit: Yes Status: Acute Category: Medical Code(s): R63.4 - Abnormal weight loss (3) Acute renal failure Current visit: Yes Status: Acute Qualifiers: Acute renal failure type: unspecified Qualified Code(s): N17.9 - Acute kidney failure, unspecified Category: Medical Code(s): N17.9 - Acute kidney failure, unspecified (4) Dehydration Current visit: Yes Status: Acute Category: Medical Code(s): E86.0 - Dehydration - Assessment and plan all Dx Assessment and Plan for all problems:: bruno rounded earlier all order per bruno
--- NOTE | 2018-09-13 08:32 | Progress Note ---
Internal Medicine - PN: Subj *Date: 09/13/18 *Time: 08:29 Interval history: wm who has still episodes of dyspepsia -pt with sl abn on ugi with sbo follow through - Exam Vital signs and Labs for Last 24 Hours: Temp Pulse Resp BP Pulse Ox 98.4 F 79 18 156/84 H 98 09/13/18 08:00 09/13/18 08:00 09/13/18 08:00 09/13/18 08:00 09/13/18 08:00 Laboratory Results - last 24 hr 09/11/18 21:45: POC Glucose 96 09/12/18 08:59: ESR 15 09/12/18 17:00: POC Glucose 87 09/12/18 20:56: POC Glucose 89 09/13/18 05:41: POC Glucose 81 I & O for Last 24 hours: Intake & Output 09/10/18 09/11/18 09/12/18 09/13/18 11:59 11:59 11:59 11:59 Intake Total 3202 / 3202 4356 / 4356 2399 / 2399 Output Total 300 / 300 700 / 700 Balance 2902 / 2902 3656 / 3656 2399 / 2399 Weight 207 lb 9.008 oz 207 lb 9.008 oz Microbiology Reports for the Last 24 Hours: Microbiology 09/10/18 14:09 Urine,Clean Catch Urine Culture - Final Multiple organisms, suggests contamination. - Constitutional no acute distress - *Routine HEENT Exam Head: Present: normocephalic Eye: Present: EOMI, PERRL ENT: Present: mucous membranes dry - *Routine Neck Exam Present: supple - *Routine Respiratory Exam Present: CTA bilaterally. Absent: respiratory distress - *Routine Cardiovascular Exam Present: RRR, murmur - *Routine Abdominal Exam Present: soft Comments: bs sl active - *Routine Extremities Exam Absent: edema - *Routine Skin Exam Present: intact - *Routine Neurological Exam Present: alert, oriented X3, CN II-XII intact - Routine Psychiatric Exam Present: normal affect Assessment and Plan (1) Nausea & vomiting Current visit: Yes Status: Acute Category: Medical Code(s): R11.2 - Nausea with vomiting, unspecified (2) Weight loss Current visit: Yes Status: Acute Category: Medical Code(s): R63.4 - Abnormal weight loss (3) Acute renal failure Current visit: Yes Status: Acute Qualifiers: Acute renal failure type: unspecified Qualified Code(s): N17.9 - Acute kidney failure, unspecified Category: Medical Code(s): N17.9 - Acute kidney failure, unspecified (4) Dehydration Current visit: Yes Status: Acute Category: Medical Code(s): E86.0 - Dehydration
[2018-09-13 14:30] LABS: Basophils % 0.3 % (0.1-2.0); Eosinophils # 0.1 K/mm3 (0.0-0.4); Hematocrit 31.7 % (42.0-52.0); Hemoglobin 10.1 g/dL (14.1-18.0); Lymphocytes # 0.6 K/mm3 (0.7-4.5); Lymphocytes % 9.3 % (10-50); Mean Corpuscular HGB Conc 31.8 g/dL (31.8-35.4); Mean Corpuscular Hemoglobin 30.1 pg (27.0-31.2); Mean Corpuscular Volume 94.7 fl (80-94); Mean Platelet Volume 9.2 fl (7.4-10.4); Monocytes # 0.3 K/mm3 (0.1-1.0); Monocytes % 4.6 % (1.7-9.3); Neutrophils % 84.8 % (37.0-80.0); Platelet Count 116 K/mm3 (142-424); Red Blood Count 3.34 M/mm3 (4.60-6.20); White Blood Count 5.8 K/mm3 (4.8-10.8)
[2018-09-13 14:46] LABS: Anion Gap 14.1 mEq/L (5-15); Blood Urea Nitrogen 12 mg/dL (7-18); Calcium 7.8 mg/dL (8.5-10.1); Carbon Dioxide 24 mmol/L (21.0-32.0); Chloride 106 mmol/L (98-107); Glucose 96 mg/dL (74-106); Potassium 4.1 mmoL/L (3.5-5.1); Sodium 140 mmol/L (136-145)
[2018-09-13 14:48] LABS: Amylase 48 U/L (25-115); C-Reactive Protein < 0.2 mg/L (0.0-0.9); Lipase 241 u/L (73-393)
[2018-09-14 06:24] LABS: Basophils % 0.2 % (0.1-2.0); Eosinophils # 0.1 K/mm3 (0.0-0.4); Eosinophils % 1.5 % (0.1-12.0); Lymphocytes # 0.6 K/mm3 (0.7-4.5); Lymphocytes % 16.5 % (10-50); Mean Corpuscular HGB Conc 32.9 g/dL (31.8-35.4); Mean Corpuscular Hemoglobin 30.4 pg (27.0-31.2); Mean Corpuscular Volume 92.5 fl (80-94); Mean Platelet Volume 9.6 fl (7.4-10.4); Monocytes # 0.2 K/mm3 (0.1-1.0); Neutrophils # 2.7 K/mm3 (1.8-7.8); Neutrophils % 75.8 % (37.0-80.0); Platelet Count 105 K/mm3 (142-424); Red Blood Count 2.83 M/mm3 (4.60-6.20); Red Cell Distribution Width 13.9 % (11.5-17.5); White Blood Count 3.5 K/mm3 (4.8-10.8)
[2018-09-14 06:26] LABS: Hemoglobin 8.6 g/dL (14.1-18.0)
[2018-09-14 06:27] LABS: Hematocrit 26.2 % (42.0-52.0)
[2018-09-14 06:39] LABS: Anion Gap 12.9 mEq/L (5-15); Calcium 7.3 mg/dL (8.5-10.1); Potassium 3.9 mmoL/L (3.5-5.1)
--- NOTE | 2018-09-14 08:36 | Progress Note ---
Subjective Narrative: Patient upper GI series revealed a small hiatal hernia and possible filling defect in the second portion of the duodenum. He has been advanced to a diabetic diet. Patient states that he was having dry heaves this morning. He had a CT scan done yesterday. Extensive report reviewed. There was retained barium from the upper GI series. Exam Vital signs and Labs for Last 24 Hours: Temp Pulse Resp BP Pulse Ox 99.5 F 67 18 131/56 L 95 09/14/18 05:12 09/14/18 05:12 09/14/18 05:12 09/14/18 05:12 09/14/18 05:12 Laboratory Results - last 24 hr 09/12/18 08:50: Cortisol 14.7 09/13/18 11:11: POC Glucose 95 09/13/18 13:40: WBC 5.8 D, RBC 3.34 L, Hgb 10.1 L, Hct 31.7 L, MCV 94.7 H, MCH 30.1, MCHC 31.8, RDW 14.0, Plt Count 116 L, MPV 9.2, Neut % (Auto) 84.8 H, Lymph % (Auto) 9.3 L, [place] % (Auto) 4.6, Eos % (Auto) 1.0, Baso % (Auto) 0.3, Neut # (Auto) 5.0, Lymph # (Auto) 0.6 L, [place] # (Auto) 0.3, Eos # (Auto) 0.1, Baso # (Auto) 0.0 09/13/18 13:40: Sodium 140, Potassium 4.1, Chloride 106, Carbon Dioxide 24, Anion Gap 14.1, BUN 12 D, Creatinine 1.35 H, Estimated Creat Clear 69, Estimated GFR 52 L, Est GFR ( Amer) 63, Glucose 96, Calcium 7.8 L, C- Reactive Protein < 0.2 09/13/18 13:40: Amylase 48, Lipase 241 09/13/18 19:27: POC Glucose 103 09/14/18 06:10: WBC 3.5 L D, RBC 2.83 L, Hgb 8.6 L D, Hct 26.2 L, MCV 92.5, MCH 30.4, MCHC 32.9, RDW 13.9, Plt Count 105 L, MPV 9.6, Neut % (Auto) 75.8, Lymph % (Auto) 16.5, [place] % (Auto) 6.0, Eos % (Auto) 1.5, Baso % (Auto) 0.2, Neut # (Auto) 2.7, Lymph # (Auto) 0.6 L, [place] # (Auto) 0.2, Eos # (Auto) 0.1, Baso # (Auto) 0.0 09/14/18 06:10: Sodium 140, Potassium 3.9, Chloride 108 H, Carbon Dioxide 23, Anion Gap 12.9, BUN 8 D, Creatinine 1.21, Estimated Creat Clear 77, Estimated GFR 59, Est GFR ( Amer) 72, Glucose 85, Calcium 7.3 L 09/14/18 06:17: POC Glucose 83 I & O for Last 24 hours: Intake & Output 09/11/18 09/12/18 09/13/18 09/14/18 11:59 11:59 11:59 11:59 Intake Total 3202 / 3202 4356 / 4356 2399 / 2399 1948 / 1948 Output Total 300 / 300 700 / 700 600 / 600 Balance 2902 / 2902 3656 / 3656 2399 / 2399 1347 / 1347 Weight 207 lb 9.008 oz 207 lb 9.008 oz - Constitutional no acute distress - *Routine Abdominal Exam Present: soft Comments: Subjective discomfort and tenderness without guarding or rebound. Progress Note: A&P (1) Nausea & vomiting Status: Acute Current Visit: Yes (2) Weight loss Status: Acute Current Visit: Yes (3) Acute renal failure Status: Acute Current Visit: Yes (4) Dehydration Status: Acute Current Visit: Yes Assessment and Plan for All Diagnoses:: I will go ahead and place the patient on an n.p.o. after midnight status for possible upper endoscopy.
--- NOTE | 2018-09-14 09:28 | Progress Note ---
Internal Medicine - PN: Subj Interval history: doing better - still not glenroy diet and reviewed labs - renal function better - hgb dec - prob egd in am Exam Vital signs and Labs for Last 24 Hours: Temp Pulse Resp BP Pulse Ox 99.2 F 64 20 154/68 H 97 09/14/18 08:00 09/14/18 08:00 09/14/18 08:00 09/14/18 08:00 09/14/18 08:00 Laboratory Results - last 24 hr 09/12/18 08:50: Cortisol 14.7 09/13/18 11:11: POC Glucose 95 09/13/18 13:40: WBC 5.8 D, RBC 3.34 L, Hgb 10.1 L, Hct 31.7 L, MCV 94.7 H, MCH 30.1, MCHC 31.8, RDW 14.0, Plt Count 116 L, MPV 9.2, Neut % (Auto) 84.8 H, Lymph % (Auto) 9.3 L, [place] % (Auto) 4.6, Eos % (Auto) 1.0, Baso % (Auto) 0.3, Neut # (Auto) 5.0, Lymph # (Auto) 0.6 L, [place] # (Auto) 0.3, Eos # (Auto) 0.1, Baso # (Auto) 0.0 09/13/18 13:40: Sodium 140, Potassium 4.1, Chloride 106, Carbon Dioxide 24, Anion Gap 14.1, BUN 12 D, Creatinine 1.35 H, Estimated Creat Clear 69, Estimated GFR 52 L, Est GFR ( Amer) 63, Glucose 96, Calcium 7.8 L, C- Reactive Protein < 0.2 09/13/18 13:40: Amylase 48, Lipase 241 09/13/18 19:27: POC Glucose 103 09/14/18 06:10: WBC 3.5 L D, RBC 2.83 L, Hgb 8.6 L D, Hct 26.2 L, MCV 92.5, MCH 30.4, MCHC 32.9, RDW 13.9, Plt Count 105 L, MPV 9.6, Neut % (Auto) 75.8, Lymph % (Auto) 16.5, [place] % (Auto) 6.0, Eos % (Auto) 1.5, Baso % (Auto) 0.2, Neut # (Auto) 2.7, Lymph # (Auto) 0.6 L, [place] # (Auto) 0.2, Eos # (Auto) 0.1, Baso # (Auto) 0.0 09/14/18 06:10: Sodium 140, Potassium 3.9, Chloride 108 H, Carbon Dioxide 23, Anion Gap 12.9, BUN 8 D, Creatinine 1.21, Estimated Creat Clear 77, Estimated GFR 59, Est GFR ( Amer) 72, Glucose 85, Calcium 7.3 L 09/14/18 06:17: POC Glucose 83 I & O for Last 24 hours: Intake & Output 09/11/18 09/12/18 09/13/18 09/14/18 11:59 11:59 11:59 11:59 Intake Total 3202 / 3202 4356 / 4356 2399 / 2399 1948 / 1948 Output Total 300 / 300 700 / 700 600 / 600 Balance 2902 / 2902 3656 / 3656 2399 / 2399 1347 / 1347 Weight 207 lb 9.008 oz 207 lb 9.008 oz - Constitutional no acute distress - *Routine HEENT Exam Head: Present: normocephalic Eye: Present: EOMI, PERRL ENT: Present: mucous membranes dry - *Routine Neck Exam Present: supple. Absent: JVD - *Routine Respiratory Exam Present: decreased breath sounds - *Routine Cardiovascular Exam Present: RRR, murmur, S4 - *Routine Abdominal Exam Present: soft - *Routine Extremities Exam Absent: calf tenderness - *Routine Skin Exam Present: intact - *Routine Neurological Exam Present: alert, oriented X3, CN II-XII intact - Routine Psychiatric Exam Present: normal affect Assessment and Plan (1) Nausea & vomiting Current visit: Yes Status: Acute Category: Medical Code(s): R11.2 - Nausea with vomiting, unspecified (2) Weight loss Current visit: Yes Status: Acute Category: Medical Code(s): R63.4 - Abnormal weight loss (3) Acute renal failure Current visit: Yes Status: Acute Qualifiers: Acute renal failure type: unspecified Qualified Code(s): N17.9 - Acute kidney failure, unspecified Category: Medical Code(s): N17.9 - Acute kidney failure, unspecified (4) Dehydration Current visit: Yes Status: Acute Category: Medical Code(s): E86.0 - Dehydration (5) Anemia Current visit: Yes Status: Acute Qualifiers: Anemia type: unspecified type Qualified Code(s): D64.9 - Anemia, unspecified Category: Medical Code(s): D64.9 - Anemia, unspecified
--- NOTE | 2018-09-15 07:03 | Progress Note ---
Subjective Patient reports: no new complaints (Still with intermittent nausea/dry heaves. He is NPO this morning for EGD.) Exam Vital signs and Labs for Last 24 Hours: Temp Pulse Resp BP Pulse Ox 98.2 F 67 18 126/57 L 98 09/15/18 04:00 09/15/18 04:00 09/15/18 04:00 09/15/18 04:00 09/15/18 04:00 Laboratory Results - last 24 hr 09/14/18 11:50: POC Glucose 87 09/14/18 12:59: Stool Occult Blood Negative 09/14/18 12:59: Stl Aeromonas (PCR) Not detected, Stl C. cayetanensis PCR Not detected, Stool Rotavirus (PCR) Not detected, Stl Adenov F 40/41 PCR Not detected, Stool Astrovirus (PCR) Not detected, Stool Campylobacter PCR Not detected, Stl C.difficile Tox PCR Not detected, Stool Cryptosporidium PCR Not detected, Stl E.coli Shiga Tox PCR Not detected, Stool E coli O157 PCR Not detected, Stl Enterotoxigenic E PCR Not detected, Stool EPEC (PCR) Not detected, Stool EAEC (PCR) Not detected, Stl E. histolytica PCR Not detected, Stool Giardia Lamblia PCR Not detected, Stool Salmonella PCR Not detected, Stool Sapovirus (PCR) Not detected, Stl P. shigelloides PCR Not detected, Stl Shigella/EIEC PCR Not detected, St Y.enterocolitica PCR Not detected, Stool Vibrio (PCR) Not detected, Stl Vibrio cholerae PCR Not detected, Stl Norovirus GI/GII PCR Not detected 09/14/18 16:57: POC Glucose 74 09/14/18 19:59: POC Glucose 89 09/15/18 06:04: POC Glucose 66 L I & O for Last 24 hours: Intake & Output 09/12/18 09/13/18 09/14/18 09/15/18 11:59 11:59 11:59 11:59 Intake Total 4356 / 4356 2399 / 2399 1946 / 1946 Output Total 700 / 700 600 / 600 Balance 3656 / 3656 2399 / 2399 1347 / 1347 1995 Weight 207 lb 9.008 oz - Constitutional no acute distress - *Routine Respiratory Exam Absent: respiratory distress - *Routine Abdominal Exam Present: soft Progress Note: A&P (1) Nausea & vomiting Status: Acute Assessment and plan: Essentially, all of the patient's symptoms began he started therapy for Parki nson's disease. Multiple findings that are of undetermined significance have been found on his evaluation up to this point. EGD this morning Potential ongoing evaluation with regard to possible biliary etiology (RUQ US). I would not recommend surgical intervention within the next week as he could have lingering effects of his parkinsonian medications that have only been held for 1 week. Current Visit: Yes (2) Weight loss Status: Acute Current Visit: Yes (3) Acute renal failure Status: Acute Current Visit: Yes (4) Dehydration Status: Acute Current Visit: Yes (5) Anemia Status: Acute Current Visit: Yes
--- NOTE | 2018-09-15 07:23 | Procedure Note ---
- Procedure: Date: 09/15/18 Procedure Performed:: Esophagogastroduodenoscopy Indications:: Nausea/vomiting; possible duodenal filling defect noted on barium swallow Performing Provider:: Sawyer Montes De Oca MD Referring Provider:: Dr. Garcia Sedation:: Monitored anesthesia care Procedure:: After informed consent was obtained the patient was taken to the endoscopy suite. Sedation ensued after the patient was transferred to the left lateral decubitus position. Pulse, blood pressure, and oxygen saturation were monitored throughout the procedure. The endoscope was advanced beyond the duodenal bulb. Retroflexion within the gastric lumen was accomplished. The gastroscope was carefully removed and the patient was transferred to recovery in stable condition. Please see "findings" and "specimens" below for detail. Findings:: Gastroesophageal junction at 45 cm Sliding hiatal hernia (fairly small) Patchy gastritis/duodenitis Small areas within the antrum and duodenal bulb that appeared to be "healed ulcerations" Significant small bowel spasticity precluding good visualization of the entire duodenum to rule out filling defect Specimens:: Antral biopsy (areas of likely healed ulceration) Duodenal bulb biopsy Recommendations:: Follow-up pending pathology Continue PPI Begin Carafate Ongoing evaluation with regard to nausea/vomiting to include right upper quadrant ultrasound. Colonoscopy with repeat EGD in near future Complications:: No immediate Estimated blood obtained (mL): 1
--- NOTE | 2018-09-15 07:59 | Progress Note ---
[facility] Anesthesia Checklist - Patient Identification Patient Identification: Arm Band, Verbal (Name & ) - Structural Data Admitted From: Inpatient Planned Operative Procedure/s: egd Consent for Planned Operative Procedure(s) Verified: Yes Verified Documents: History and Physical - NPO Status Verified Time NPO: 00:00 - Additional verifications Patient : No Anesthesia Reactions: No Hx Blood Transfusions: No Blood Transfusion Reaction: No Cephalosporin Allergy: No Previous Colonoscopy: No - Cardiovascular Assessment Heart Sounds: S1 & S2 Pulse Strength: Baseline Pulse Rhythm: Regular Peripheral Edema: No - Airway Assessment C-Spine Mobility Assessed: Yes TMJ Mobility Assessed: Yes Dentition: Edentulous - Neurological Assessment Level of Consciousness: Awake, Alert, Appropriate Hx Seizures: No Numbness or tingling in extremities: No - Anesthesia Plan Anesthesia Risk discussed: Yes Anesthesia Plan: Verified ASA Class: III Anesthesia Type: [facility] History I have reviewed the patient's past medical history: Yes Medical History: Reports:: Cancer (left kidney removed 2007), Cerebrovascular Accident, Diabetes Mellitus Type 1, Diabetes Mellitus Type 2, Hiatal Hernia, Hyperlipidemia, Hypertension Denies:: MRSA Other Medical History: Reports: Cataracts Other Surgeries: Yes: Appendectomy, Cancer Surgery, Hernia Repair, Other Amputation: No Fractures: No - *Social History Educational Level: Attended College Smoking Status: Former smoker Tobacco Type: cigarettes #Yrs smoked (if former smoker): 30 Smoking End Date: 09/09/2003 Alcohol Intake: never Alcohol Intake Frequency:: a few times a week Substance Use Type: denies use Occupational Status: retired Housing: house Household Members: spouse, family - Psychiatric History Expresses thoughts of harming self/others: None Suicide Plan Description: No Plan *Family Hx:: Coronary Artery Disease
--- NOTE | 2018-09-15 08:29 | Progress Note ---
Internal Medicine - PN: Subj *Date: 09/15/18 *Time: 08:00 Interval history: pt with egd this an and discussed with dr kirby - he reports doing better - has rt upper abd u/s today Exam Vital signs and Labs for Last 24 Hours: Temp Pulse Resp BP Pulse Ox 98.2 F 67 18 126/57 L 98 09/15/18 04:00 09/15/18 04:00 09/15/18 04:00 09/15/18 04:00 09/15/18 04:00 Laboratory Results - last 24 hr 09/14/18 11:50: POC Glucose 87 09/14/18 12:59: Stool Occult Blood Negative 09/14/18 12:59: Stl Aeromonas (PCR) Not detected, Stl C. cayetanensis PCR Not detected, Stool Rotavirus (PCR) Not detected, Stl Adenov F 40/41 PCR Not detected, Stool Astrovirus (PCR) Not detected, Stool Campylobacter PCR Not detected, Stl C.difficile Tox PCR Not detected, Stool Cryptosporidium PCR Not detected, Stl E.coli Shiga Tox PCR Not detected, Stool E coli O157 PCR Not detected, Stl Enterotoxigenic E PCR Not detected, Stool EPEC (PCR) Not detected, Stool EAEC (PCR) Not detected, Stl E. histolytica PCR Not detected, Stool Giardia Lamblia PCR Not detected, Stool Salmonella PCR Not detected, Stool Sapovirus (PCR) Not detected, Stl P. shigelloides PCR Not detected, Stl Shigella/EIEC PCR Not detected, St Y.enterocolitica PCR Not detected, Stool Vibrio (PCR) Not detected, Stl Vibrio cholerae PCR Not detected, Stl Norovirus GI/GII PCR Not detected 09/14/18 16:57: POC Glucose 74 09/14/18 19:59: POC Glucose 89 09/15/18 06:04: POC Glucose 66 L I & O for Last 24 hours: Intake & Output 09/12/18 09/13/18 09/14/18 09/15/18 11:59 11:59 11:59 11:59 Intake Total 4356 / 4356 2399 / 2399 1948 / 1948 2793 / 2793 Output Total 700 / 700 600 / 600 Balance 3656 / 3656 2399 / 2399 1347 / 1347 2793 / 2793 Weight 207 lb 9.008 oz - Constitutional no acute distress - *Routine HEENT Exam Head: Present: normocephalic Eye: Present: EOMI, PERRL ENT: Present: mucous membranes dry - *Routine Neck Exam Present: supple - *Routine Respiratory Exam Present: decreased breath sounds - *Routine Cardiovascular Exam Present: RRR, murmur - *Routine Abdominal Exam Present: soft - *Routine Extremities Exam Absent: calf tenderness - *Routine Skin Exam Present: intact - *Routine Neurological Exam Present: alert, CN II-XII intact, normal tone. Absent: tremors - Routine Psychiatric Exam Present: normal affect Assessment and Plan (1) Nausea & vomiting Current visit: Yes Status: Acute Category: Medical Code(s): R11.2 - Nausea with vomiting, unspecified (2) Weight loss Current visit: Yes Status: Acute Category: Medical Code(s): R63.4 - Abnormal weight loss (3) Acute renal failure Current visit: Yes Status: Acute Qualifiers: Acute renal failure type: unspecified Qualified Code(s): N17.9 - Acute kidney failure, unspecified Category: Medical Code(s): N17.9 - Acute kidney failure, unspecified (4) Dehydration Current visit: Yes Status: Acute Category: Medical Code(s): E86.0 - Dehydration (5) Anemia Current visit: Yes Status: Acute Qualifiers: Anemia type: unspecified type Qualified Code(s): D64.9 - Anemia, unspecified Category: Medical Code(s): D64.9 - Anemia, unspecified
[2018-09-15 08:58] LABS: Basophils % 0.1 % (0.1-2.0); Eosinophils # 0.1 K/mm3 (0.0-0.4); Eosinophils % 1.7 % (0.1-12.0); Hemoglobin 9.6 g/dL (14.1-18.0); Lymphocytes # 0.7 K/mm3 (0.7-4.5); Lymphocytes % 19.3 % (10-50); Mean Corpuscular HGB Conc 35.5 g/dL (31.8-35.4); Mean Corpuscular Hemoglobin 32.3 pg (27.0-31.2); Mean Corpuscular Volume 90.9 fl (80-94); Mean Platelet Volume 8.5 fl (7.4-10.4); Monocytes # 0.2 K/mm3 (0.1-1.0); Monocytes % 6.6 % (1.7-9.3); Neutrophils # 2.4 K/mm3 (1.8-7.8); Neutrophils % 72.3 % (37.0-80.0); Platelet Count 102 K/mm3 (142-424); Red Blood Count 2.97 M/mm3 (4.60-6.20); White Blood Count 3.4 K/mm3 (4.8-10.8)
--- NOTE | 2018-09-16 07:21 | Progress Note ---
Subjective Patient reports: feels better (wants to go home) Exam Vital signs and Labs for Last 24 Hours: Temp Pulse Resp BP Pulse Ox 98.9 F 83 18 180/83 H 93 L 09/16/18 04:00 09/16/18 04:00 09/16/18 04:00 09/16/18 04:00 09/16/18 04:00 Laboratory Results - last 24 hr 09/15/18 08:52: WBC 3.4 L, RBC 2.97 L, Hgb 9.6 L, Hct 27.0 L, MCV 90.9, MCH 32.3 H, MCHC 35.5 H, RDW 14.0, Plt Count 102 L, MPV 8.5, Neut % (Auto) 72.3, Lymph % (Auto) 19.3, [place] % (Auto) 6.6, Eos % (Auto) 1.7, Baso % (Auto) 0.1, Neut # ( Auto) 2.4, Lymph # (Auto) 0.7, [place] # (Auto) 0.2, Eos # (Auto) 0.1, Baso # (Auto) 0.0 09/15/18 11:19: POC Glucose 71 09/15/18 16:23: POC Glucose 83 09/15/18 20:17: POC Glucose 91 09/16/18 06:18: POC Glucose 73 I & O for Last 24 hours: Intake & Output 09/13/18 09/14/18 09/15/18 09/16/18 11:59 11:59 11:59 11:59 Intake Total 2399 / 2399 [birth year] 2793 / 2793 1481 / 1481 Output Total 600 / 600 200 / 200 Balance 2399 / 2399 1347 / 1347 2793 / 2793 1281 / 1281 Weight 207 lb 9.008 oz - Constitutional no acute distress - *Routine Respiratory Exam Absent: respiratory distress Progress Note: A&P (1) Nausea & vomiting Status: Acute Assessment and plan: improving will need continued f/u as outpatient (? repeat EGD, colonoscopy (he is due), discussin regarding possible biliary component) will f/u in 1 week Current Visit: Yes (2) Weight loss Status: Acute Current Visit: Yes (3) Acute renal failure Status: Acute Current Visit: Yes (4) Dehydration Status: Acute Current Visit: Yes (5) Anemia Status: Acute Current Visit: Yes
--- NOTE | 2018-09-16 09:06 | Discharge Summary ---
General - General Admission date:: 09/10/18 Discharge date: 09/16/18 HPI HPI: 68-year-old male presented to the ER with complaints of nausea, weakness,vomiting and decreased appetite with weight loss. Patient was seen in the office sent to the ER for evaluation due to the lethargic and weakness. states he was diagnosed with Parkinson's disease a couple of months ago and he has been started on medications. After starting the medications has had no appetite, nausea, weight loss of 30 pounds over 5 weeks, urine and stool are dark and smelly. Saturday 2 days ago was seen by the neurologist and Parkinson's medications were stopped due to the side effects. states that they were told the medication should be out of his system within a couple of days and the nausea should be gone. states still having all the symptoms even after stopping medications. states only has one kidney. Patient admitted for acute kidney failure for IV hydration and surgery consult for nausea vomiting and weight loss. Hospital Course Hospital Course: gallbladder us-IMPRESSION: 1. Sludge within a mildly distended gallbladder with mild prominence of the common bile duct at 8 mm. 2. Right renal cysts ct scan_IMPRESSION. 1. No prominent acute findings., but notable observations below: Retained barium throughout the colon from yesterday's UGI does yield prominent streak artifact which somewhat degrades the study. 2. Gallbladder slightly distended with suspect stones. But the prominent barium streak artifact may spurious medial this appearance. 3. Note minimal wispy density in fat anterior to the right psoas muscle towards RLQ/. Lateral Right pelvis.. Subtle change since 2009.,. Note Questionable area of possible epiploic appendagitis in this region.. -Clinical correlation required. (This is self-limiting but might yield some recent or acute RLQ pain/discomfort; but I would not expect this feature to account for 6 weeks of nausea/ vomiting/diarrhea reported in history.). Appendix is been removed.. 4.... .. Scattered small air-fluid levels throughout small bowel with perhaps slight increased fluid here. Nonspecific reflect mild ileus or enteritis. But unimpressive. No liquid stool more diarrhea evident at at the large bowel 5.Diffuse Mildly thickened bladder wall with slightly enlarged prostate. Warrants correlation with urinalysis to exclude cystitis 6. There is a 3.5 cm slightly debris-filled exophytic cyst hanging off lower pole RIGHT kidney. This has enlarged since 2010 . LEFT kidney removed due to tumor seen on 2010 CT. No recurrent nodes or masses at bed of left nephrectomy 7. Consider Follow-up RUQ ultrasound to to verify benign cystic nature of this 3.5 cm apparent cyst off pole right & kidney, and to better exclude gallstones. 8.. Bones . Small focal sclerotic area posterior margin of L5.-Most likely benign bone island but was not seen previously in 2010 . Also Subtle 8 mm lucent area right aspect of L3 vertebra more likely benign feature but is slightly more apparent.. May need to consider bone scan if any back pain or bone symptoms. gi follow through_IMPRESSION: 1. Small hiatal hernia. 2. No ulcers evident. 3. There is some mild narrowing of the proximal aspect of the second portion of the duodenum with questionable lateral filling defect. Upper endoscopy may be of further value to ensure there is not a mucosal lesion at this area chest x ray_IMPRESSION: No change with no acute finding Surgery consult see note Started Reglan patient did have some relief but as an outpatient patient was stopped taking Reglan due to increased Parkinson's and secretions. We will discharge home on Carafate follow-up with Dr. Montes De Oca for further testing. Refer to Dr. Shafer for anemia We will also refer to Dr. Miller for cyst on kidneys and enlarged prostate Objective Vital signs: Temp Pulse Resp BP Pulse Ox 98.9 F 83 18 180/83 H 93 L 09/16/18 04:00 09/16/18 04:00 09/16/18 04:00 09/16/18 04:00 09/16/18 04:00 no acute distress - *Routine HEENT Exam Head: Present: normocephalic Eye: Present: PERRL ENT: Present: mucous membranes moist - *Routine Neck Exam Present: full ROM - *Routine Respiratory Exam Present: CTA bilaterally - *Routine Cardiovascular Exam Present: RRR - *Routine Abdominal Exam Present: soft, normoactive bowel sounds - *Routine Extremities Exam Present: full ROM - *Routine Skin Exam Present: intact - *Routine Neurological Exam Present: alert, oriented X3 - Routine Psychiatric Exam Present: normal affect Results Labs on day of discharge: Labs from last 24 hours 0109/15/18 09/15/18 06:18 20:17 16:23 POC Glucose 73 91 83 09/15/18 11:19 POC Glucose 71 - Additional Comments Rounded with Dr. Garcia all orders per Radha DS: Diagnosis - Discharge Diagnosis (1) Nausea & vomiting Status: Acute (2) Weight loss Status: Acute (3) Acute renal failure Status: Acute (4) Dehydration Status: Acute (5) Anemia Status: Acute Discharge Plan - Patient Discharge Instructions ACTIVITY: Continue current activity DIET: continue same diet Patient Instructions: High-Calorie, High-Protein Diet, DI for Dehydration -- Adult, Acute Renal Failure - Follow up Plan Follow up with: Sawyer Montes De Oca MD [Staff Physician] - 1 week Charly Barber APRN [Primary Care Provider] - 1 week Disposition: Home, Self-Snf Medications: Home Medications Medication Instructions Recorded Confirmed Type aspirin 81 mg tablet,delayed 81 mg PO DAILY 09/30/17 09/11/18 History release hydrochlorothiazide 25 mg tablet 25 mg PO DAILY 09/30/17 09/11/18 History lisinopril 40 mg tablet 40 mg PO DAILY 09/30/17 09/11/18 History Indapamide [Lozol 2.5mg tablet] 2.5 mg PO DAILY 09/10/18 09/11/18 History Metoprolol Tartrate [Lopressor 25 mg PO BID 09/10/18 09/10/18 History 25mg tablet] Simvastatin 20 mg PO HS 09/10/18 09/11/18 History Omeprazole [Omeprazole 20mg 20 mg PO DAILY 09/11/18 09/11/18 History Capsule] Pioglitazone HCl 30 mg PO DAILY 09/11/18 09/11/18 History Linagliptin [Tradjenta 5mg tablet] 5 mg PO DAILY 30 Days #30 tab 09/16/18 Rx Sucralfate [Carafate 1gm/10mL Susp 1 gm PO ACHS 30 Days #90 udc 09/16/18 Rx Udc] Prescriptions/Medication Reconciliation: New Sucralfate [Carafate 1gm/10mL Susp Udc] 1 gm PO ACHS 30 Days #90 udc Linagliptin [Tradjenta 5mg tablet] 5 mg PO DAILY 30 Days #30 tab Continue hydrochlorothiazide 25 mg tablet 25 mg PO DAILY lisinopril 40 mg tablet 40 mg PO DAILY aspirin 81 mg tablet,delayed release 81 mg PO DAILY Metoprolol Tartrate [Lopressor 25mg tablet] 25 mg PO BID Indapamide [Lozol 2.5mg tablet] 2.5 mg PO DAILY Simvastatin 20 mg PO HS Omeprazole [Omeprazole 20mg Capsule] 20 mg PO DAILY Discontinued Pioglitazone HCl 30 mg PO DAILY
== END 2018-09-16 10:35 | disposition home or self-care (01) | DRG 641 ==
LOC: ER 12:11 → 2ND 12:11 → OBSVTOIN 14:31 → 2ND 14:51
PROVIDERS: ADMIT Emergency Medicine; ATTEND Emergency Medicine
CPT/HCPCS: 36415; 71020; 71046; 74176; 74245; 76705; 80048; 80053; 81001; 82150; 82272; 82533; 82962; 83690; 84484; 85025; 85651; 86140; 87086; 87507; 93005; 96365; 99284; G0328; J2405

== ENCOUNTER → 2018-09-23 19:31 | Outpatient (CLI) | payer MEDICARE, OTHER, SELFPAY ==
[2018-09-23 19:58] LABS: Anion Gap 13.5 mEq/L (5-15); Blood Urea Nitrogen 14 mg/dL (7-18); Calcium 7.7 mg/dL (8.5-10.1); Carbon Dioxide 28 mmol/L (21.0-32.0); Chloride 102 mmol/L (98-107); Creatinine,Serum 1.74 mg/dL (0.70-1.30); Estimated Glomerular Filt Rate 39 ml/min (>60); GFR (African American) 47 ML/MIN (>60); Glucose 106 mg/dL (74-106); Potassium 3.5 mmoL/L (3.5-5.1); Sodium 140 mmol/L (136-145)
== END ==
PROVIDERS: Visit Provider Emergency Medicine
DX: M10.9 Gout, unspecified (principal)
CPT/HCPCS: 80048; 84550

== ENCOUNTER 2018-10-03 22:04 | Inpatient (IN) ==
[2018-10-03 22:36] LABS: Basophils % 0.3 % (0.1-2.0); Eosinophils # 0.1 K/mm3 (0.0-0.4); Eosinophils % 1.1 % (0.1-12.0); Hematocrit 42.5 % (42.0-52.0); Hemoglobin 13.4 g/dL (14.1-18.0); Lymphocytes # 1.3 K/mm3 (0.7-4.5); Lymphocytes % 14.4 % (10-50); Mean Corpuscular HGB Conc 31.6 g/dL (31.8-35.4); Mean Corpuscular Hemoglobin 30.4 pg (27.0-31.2); Mean Corpuscular Volume 96.1 fl (80-94); Mean Platelet Volume 8.2 fl (7.4-10.4); Monocytes # 0.4 K/mm3 (0.1-1.0); Monocytes % 4.1 % (1.7-9.3); Neutrophils # 7.3 K/mm3 (1.8-7.8); Platelet Count 208 K/mm3 (142-424); Red Blood Count 4.42 M/mm3 (4.60-6.20); Red Cell Distribution Width 14.9 % (11.5-17.5); White Blood Count 9.1 K/mm3 (4.8-10.8)
[2018-10-03 22:50] LABS: Albumin Level 4.2 gm/dL (3.4-5.0); Albumin/Globulin Ratio 1.1 (1.1-1.8); Anion Gap 13.5 mEq/L (5-15); Bilirubin,Total 0.7 mg/dL (0.2-1.0); C-Reactive Protein 0.6 mg/L (0.0-0.9); Globulin 3.9 gm/dl (1.3-3.2); Potassium 4.5 mmoL/L (3.5-5.1); Total Protein,Serum 8.1 gm/dL (6.4-8.2)
--- NOTE | 2018-10-03 22:58 | Emergency Department Note ---
ED Disposition Clinical Impression: Cholelithiasis Qualifiers: Cholelithiasis location: gallbladder Cholecystitis presence: without cholecystitis Biliary obstruction: without biliary obstruction Qualified Code(s): K80.20 - Calculus of gallbladder without cholecystitis without obstruction Disposition: Admitted as Observation Condition on Discharge: Good - Critical Care Critical Care Time: No Attestation: On 10/03/18, the high probability of a clinically significant, sudden or life threatening deterioration of the following system(s) required my full and direct attention, intervention and personal management. The time I documented below is in addition to time spent performing reported procedures but includes the following listed in this critical care notation. Medical Decision Making - Medical Records Medical records reviewed: Yes: I reviewed the patient's medical records. - Antoine Inquiry Pt receiving controlled substance: No Vital Signs: 10/03/18 22:13 Temperature 98.1 F Temperature Source Oral Pulse Rate [Right Brachial] 78 Respiratory Rate 22 Blood Pressure [Right Arm] 144/76 H Blood Pressure Mean [Right Arm] 98 Blood Pressure Source [Right Arm] Automatic Cuff Blood Pressure Position [Right Arm] Sitting 02 Sat by Pulse Oximetry 100 Oxygen Delivery Method Room Air - Lab Data Lab results reviewed: Yes: I reviewed the patient's lab results. Lab Results 10/03/18 22:20: Troponin I < 0.02 10/03/18 22:22: WBC 9.1, RBC 4.42 L, Hgb 13.4 L, Hct 42.5, MCV 96.1 H, MCH 30.4, MCHC 31.6 L, RDW 14.9, Plt Count 208, MPV 8.2, Neut % (Auto) 80.0, Lymph % (Auto) 14.4, [place] % (Auto) 4.1, Eos % (Auto) 1.1, Baso % (Auto) 0.3, Neut # (Auto) 7.3, Lymph # (Auto) 1.3, [place] # (Auto) 0.4, Eos # (Auto) 0.1, Baso # (Auto) 0.0 10/03/18 22:22: Sodium 138, Potassium 4.5, Chloride 102, Carbon Dioxide 27, Anion Gap 13.5, BUN 19 H, Creatinine 1.49 H, Estimated Creat Clear 63, Estimated GFR 47 L, Est GFR ( Amer) 57 L, Glucose 154 H, Calcium 9.0, Total Bilirubin 0.7, AST 12 L, ALT 17, Alkaline Phosphatase 123 H, C-Reactive Protein 0.6, Total Protein 8.1, Albumin 4.2, Globulin 3.9 H, Albumin/Globulin Ratio 1.1, Amylase 78, Lipase 312 10/03/18 22:22: ESR 19 Result diagrams: 10/03/18 22:22 10/03/18 22:22 Orders (Tests/Meds): ED MEDICATIONS Discontinued Medications Generic Name Dose Route Start Last Admin Trade Name Shira PRN Reason Stop Dose Admin Famotidine 20 mg 10/03/18 22:58 10/03/18 23:01 Pepcid 20mg/2ml Vial IV 10/03/18 22:59 20 mg ONCE ONE Administration Hydromorphone HCl 1 mg 10/03/18 23:35 10/03/18 23:36 Dilaudid 2mg/Ml Syringe IV 10/03/18 23:36 1 mg ONCE ONE Administration Metoclopramide HCl 10 mg 10/03/18 22:57 10/03/18 23:01 Reglan 10mg/2ml Vial IVP 10/03/18 22:58 10 mg ONCE ONE Administration Morphine Sulfate 4 mg 10/03/18 22:38 10/03/18 22:39 Morphine 4mg/Ml Syringe IV 10/03/18 22:39 4 mg ONCE ONE Administration Ondansetron HCl 4 mg 10/03/18 22:38 10/03/18 22:39 Zofran 4mg/2ml Vial IV 10/03/18 22:39 4 mg ONCE ONE Administration Promethazine HCl 12.5 mg 10/03/18 23:35 10/03/18 23:36 Phenergan 25mg/Ml 1ml Vial IV 10/03/18 23:36 12.5 mg ONCE ONE Administration Sodium Chloride 25 ml 10/03/18 23:35 10/03/18 23:36 Sod Chlor 0.9% 25ml Bag IV 10/03/18 23:36 25 ml ONCE ONE Administration ORDERS Category Date Time Status CT abdomen pelvis wo con Stat Cat Scan 10/03/18 22:20 Taken - CT Data CT Scan: Abdomen, Pelvis Time Received: 00:[address] Reviewed: Yes: I have viewed the radiologist's interpretation Preliminary Findings: Abnormal (gallstones ) Nausea/Vomiting/Diarrhea HPI - General Chief complaint: Abdominal Pain Stated complaint: possible gallbladder Time Seen by Provider: 10/03/18 22:20 Mode of Arrival: Ambulatory Source of Information: Patient, Spouse, Medical Record Limitations: No Limitations Description of Symptoms (Recalled from ER Triage Doc. by RN): RECENT VISIT FOR GB ATTACK-FOUND TO HAVE GALLSTONES UPON EXAM; RETURNS FOR INCR PAIN AND NAUSEA - History of Present Illness HPI Narrative: acute rt upper abd pain with nausea MD complaint: nausea, vomiting, abdominal pain Onset (ago): hour(s) Associated Abdominal Pain: Yes Location of pain: RUQ Severity: moderate Associated symptoms: denies other symptoms - Related Data Home Medications Medication Instructions Recorded Confirmed aspirin 81 mg tablet,delayed 81 mg PO DAILY 09/30/17 10/03/18 release hydrochlorothiazide 25 mg tablet 25 mg PO DAILY 09/30/17 10/03/18 lisinopril 40 mg tablet 40 mg PO DAILY 09/30/17 10/03/18 Indapamide [Lozol 2.5mg tablet] 2.5 mg PO DAILY 09/10/18 10/03/18 Metoprolol Tartrate [Lopressor 25 mg PO BID 09/10/18 10/03/18 25mg tablet] Simvastatin 20 mg PO HS 09/10/18 10/03/18 linagliptin 5 mg tablet 5 mg PO DAILY 09/23/18 10/03/18 Allergies Allergy/AdvReac Type Severity Reaction Status Date / Time No Known Allergies Allergy Verified 09/23/18 14:20 [facility] History - Hepatitis A Screen Drug use history?: No High risk sexual behaviors?: No History of sexually transmitted infection?: No Currently employed?: No Childcare worker?: No Do you have indoor plumbing?: Yes Do you have electricity?: Yes Attestation statement:: This patient has been screened for Hepatitis A risk factors. I have reviewed the patient's past medical history: Yes Medical History: Reports:: Cancer, Cerebrovascular Accident, Diabetes Mellitus Type 1, Diabetes Mellitus Type 2, Hiatal Hernia, Hyperlipidemia, Hypertension Denies:: MRSA, Seizures Other Medical History: Reports: Cataracts. Denies: Blood Transfusion Reaction Other Surgeries: Yes: Appendectomy, Cancer Surgery, Hernia Repair, Other Amputation: No Fractures: No Comment: LT kidney removed - Social History Educational Level: Completed High School Smoking Status: Unknown if ever smoked Tobacco Type: cigarettes #Yrs smoked (if former smoker): 30 Alcohol Intake: never Alcohol Intake Frequency:: a few times a week Substance Use Type: denies use Occupational Status: retired Housing: house Household Members: spouse, family - Psychiatric History Expresses thoughts of harming self/others: None Suicide Plan Description: No Plan Family Hx:: Coronary Artery Disease ROS Obtained: Yes All systems reviewed & no additional complaints - Constitutional Constitutional: Denies fever(s) - Eyes Eyes: Denies change in vision - ENT Ears, Nose, Mouth, and Throat: Denies dry mouth - Cardiovascular Cardiovascular: Denies chest pain with activity - Respiratory Respiratory: No cough - Gastrointestinal Gastrointestingal: Reports: abdominal pain, nausea, vomiting - Genitourinary Male Genitourinary: Denies hematuria - Musculoskeletal Musculoskeletal: Denies abnormal gait, Denies joint pain - Integumentary/Breasts Skin/Breast: Denies rash - Neurologic Neurologic: Denies seizure-like activity Physical Exam - General General appearance: alert, in no apparent distress - Head Head exam: normocephalic - Eye Eye exam: Present: PERRL, EOMI. Absent: scleral icterus - ENT ENT exam: Present: mucous membranes dry - Neck Neck exam: Present: trachea midline - Respiratory Respiratory exam: Absent: respiratory distress - Cardiovascular Cardiovascular exam: Present: regular rate, systolic murmur - Abdominal Exam Abdominal exam: Present: soft, tenderness, Kelley's sign Abdominal tenderness: Present: RUQ, moderate - Extremities Exam Extremities exam: Present: full ROM - Neurological Exam Neurological exam: Present: alert, CN II-XII intact - Psychiatric Psychiatric exam: Present: normal affect - Skin Skin exam: Absent: rash
[2018-10-04 04:49] LABS: Basophils % 0.1 % (0.1-2.0); Eosinophils % 0.4 % (0.1-12.0); Hematocrit 34.5 % (42.0-52.0); Lymphocytes # 0.5 K/mm3 (0.7-4.5); Lymphocytes % 5.3 % (10-50); Mean Corpuscular HGB Conc 32.1 g/dL (31.8-35.4); Mean Corpuscular Hemoglobin 30.4 pg (27.0-31.2); Mean Corpuscular Volume 94.5 fl (80-94); Mean Platelet Volume 8.2 fl (7.4-10.4); Monocytes # 0.4 K/mm3 (0.1-1.0); Monocytes % 3.8 % (1.7-9.3); Neutrophils # 8.8 K/mm3 (1.8-7.8); Neutrophils % 90.4 % (37.0-80.0); Platelet Count 138 K/mm3 (142-424); Red Blood Count 3.65 M/mm3 (4.60-6.20); Red Cell Distribution Width 14.9 % (11.5-17.5); White Blood Count 9.7 K/mm3 (4.8-10.8)
[2018-10-04 04:56] LABS: Hemoglobin 11.1 g/dL (14.1-18.0)
[2018-10-04 05:14] LABS: Anion Gap 14.4 mEq/L (5-15); Blood Urea Nitrogen 20 mg/dL (7-18); Calcium 8.6 mg/dL (8.5-10.1); Carbon Dioxide 24 mmol/L (21.0-32.0); Chloride 106 mmol/L (98-107); Glucose 146 mg/dL (74-106); Potassium 4.4 mmoL/L (3.5-5.1); Sodium 140 mmol/L (136-145)
[2018-10-04 05:35] LABS: Lymphocytes % 5 % (10-50); Monocytes % 1 % (2-9); Neutrophils % 83 % (42-76); Total Cells Counted 100
[2018-10-04 05:36] LABS: RBC Morphology Normal
--- NOTE | 2018-10-04 10:37 | History & Physical Report ---
*Admission Date: 10/04/18 *Chief complaint: abd pain *History of present illness: this wm presents with sev abd pain - he reports n/v but no fever or diarrhea and was seen in the ed and admitted with abn ct and pain despite iv meds - he was also admitted for surg consult [facility] History I have reviewed the patient's past medical history: Yes Medical History: Reports:: Cancer (left kidney. removed on 2009), Cerebrovascular Accident, Diabetes Mellitus Type 2, Hiatal Hernia, Hyperlipidemia, Hypertension Denies:: Diabetes Mellitus Type 1, MRSA, Seizures Have you ever received a pneumonia vaccine?: No Have you received a flu vaccine this season?: No Other Medical History: Reports: Cataracts (removed on left side). Denies: Blood Transfusion Reaction Other Surgeries: Yes: Appendectomy, Cancer Surgery (left kidney removal), Cardiac Catheterization, Colonoscopy, Hernia Repair, Other Amputation: No Fractures: No - *Social History Educational Level: Attended College Smoking Status: Unknown if ever smoked Tobacco Type: cigarettes #Yrs smoked (if former smoker): 30 Alcohol Intake: current Alcohol Intake Frequency:: holidays/special occasions only Substance Use Type: denies use Occupational Status: retired Housing: house Household Members: spouse, family Travel in the last 8 weeks: None - Psychiatric History Expresses thoughts of harming self/others: None Suicide Plan Description: No Plan *Family Hx:: No significant family history Review of Systems - Review of Systems Review of systems:: pertinent systems reviewed and negative unless documented below - Constitutional Denies fever(s) - Eyes Denies change in vision - ENT Denies sore throat, Denies throat swelling - *Cardiovascular Denies chest pain at rest - *Respiratory Denies cough - *Gastrointestinal Reports abdominal pain, Reports bloating, Reports nausea, Reports vomiting, Denies coffee ground vomit, Denies vomiting blood, Denies bright, red blood in stools, Denies black, tarry stools - *Genitourinary Denies blood in urine - *Musculoskeletal Denies joint pain - Integumentary/Breasts Denies rash - *Neurologic Denies abnormal walking, Denies seizure-like activity - Psychiatric Denies anxiety Meds Home Medications Medication Instructions Recorded Confirmed Type aspirin 81 mg tablet,delayed 81 mg PO DAILY 09/30/17 10/04/18 History release hydrochlorothiazide 25 mg tablet 25 mg PO DAILY 09/30/17 10/04/18 History lisinopril 40 mg tablet 40 mg PO DAILY 09/30/17 10/04/18 History Indapamide [Lozol 2.5mg tablet] 2.5 mg PO DAILY 09/10/18 10/04/18 History Metoprolol Tartrate [Lopressor 25 mg PO BID 09/10/18 10/04/18 History 25mg tablet] Simvastatin 20 mg PO HS 09/10/18 10/04/18 History linagliptin 5 mg tablet 5 mg PO DAILY 09/23/18 10/04/18 History Allergies Allergy/AdvReac Type Severity Reaction Status Date / Time No Known Allergies Allergy Verified 09/23/18 14:20 Exam Vital signs and Labs for Last 24 Hours: Temp Pulse Resp BP Pulse Ox 98.2 F 104 H 16 143/73 H 92 L 10/04/18 08:00 10/04/18 08:00 10/04/18 08:00 10/04/18 08:00 10/04/18 08:00 Laboratory Results - last 24 hr 10/03/18 22:20: Troponin I < 0.02 10/03/18 22:22: WBC 9.1, RBC 4.42 L, Hgb 13.4 L, Hct 42.5, MCV 96.1 H, MCH 30.4, MCHC 31.6 L, RDW 14.9, Plt Count 208, MPV 8.2, Neut % (Auto) 80.0, Lymph % (Auto) 14.4, [place] % (Auto) 4.1, Eos % (Auto) 1.1, Baso % (Auto) 0.3, Neut # (Auto) 7.3, Lymph # (Auto) 1.3, [place] # (Auto) 0.4, Eos # (Auto) 0.1, Baso # (Auto) 0.0 10/03/18 22:22: Sodium 138, Potassium 4.5, Chloride 102, Carbon Dioxide 27, Anion Gap 13.5, BUN 19 H, Creatinine 1.49 H, Estimated Creat Clear 63, Estimated GFR 47 L, Est GFR ( Amer) 57 L, Glucose 154 H, Calcium 9.0, Total Bilirubin 0.7, AST 12 L, ALT 17, Alkaline Phosphatase 123 H, C-Reactive Protein 0.6, Total Protein 8.1, Albumin 4.2, Globulin 3.9 H, Albumin/Globulin Ratio 1.1, Amylase 78, Lipase 312 10/03/18 22:22: ESR 19 10/04/18 04:20: WBC 9.7, RBC 3.65 L, Hgb 11.1 L D, Hct 34.5 L, MCV 94.5 H, MCH 30.4, MCHC 32.1, RDW 14.9, Plt Count 138 L D, MPV 8.2, Neut % (Auto) 90.4 H, Lymph % (Auto) 5.3 L, [place] % (Auto) 3.8, Eos % (Auto) 0.4, Baso % (Auto) 0.1, Neut # (Auto) 8.8 H, Lymph # (Auto) 0.5 L, [place] # (Auto) 0.4, Eos # (Auto) 0.0, Baso # (Auto) 0.0, Total Counted 100, Neutrophils % (Manual) 83 H, Band Neutrophils % 11.0 H, Lymphocytes % (Manual) 5 L, Monocytes % (Manual) 1 L, Platelet Estimate Slight decrease, RBC Morphology Normal 10/04/18 04:20: Sodium 140, Potassium 4.4, Chloride 106, Carbon Dioxide 24, Anion Gap 14.4, BUN 20 H, Creatinine 1.37 H, Estimated Creat Clear 66, Estimated GFR 52 L, Est GFR ( Amer) 62, Glucose 146 H, Calcium 8.6, Troponin I < 0.02 10/04/18 06:38: POC Glucose 120 H I & O for Last 24 hours: Intake & Output 10/01/18 10/02/18 10/03/18 10/04/18 11:59 11:59 11:59 11:59 Intake Total 0 / 0 Balance 0 / 0 Weight 203 lb 1 oz - Constitutional no acute distress - *Routine HEENT Exam Head: Present: normocephalic Eye: Present: EOMI, PERRL. Absent: conjunctival icterus ENT: Present: mucous membranes dry - *Routine Neck Exam Absent: JVD - *Routine Respiratory Exam Present: decreased breath sounds - *Routine Cardiovascular Exam Present: RRR, murmur, S4 - *Routine Abdominal Exam Present: tenderness Comments: tender rt upper abd with murphys sign - *Routine Extremities Exam Absent: calf tenderness - *Routine Skin Exam Present: intact - *Routine Neurological Exam Present: alert, oriented X3, CN II-XII intact. Absent: normal tone increased tone - Routine Psychiatric Exam Present: normal affect Assessment and Plan (1) Cholelithiasis Current visit: Yes Status: Acute Qualifiers: Cholelithiasis location: gallbladder Cholecystitis presence: without cholecystitis Biliary obstruction: without biliary obstruction Qualified Code(s): K80.20 - Calculus of gallbladder without cholecystitis without obstruction Category: Medical Code(s): K80.20 - Calculus of gallbladder without cholecystitis without obstruction (2) Renal insufficiency Current visit: Yes Status: Acute Category: Medical Code(s): N28.9 - Disorder of kidney and ureter, unspecified (3) Obese Current visit: Yes Status: Acute Qualifiers: Obesity type: due to excess calories Obesity classification: adult class 1 (BMI 30 - 34.9) Serious obesity comorbidity presence: with serious comorbidity Body mass index: BMI 30.0-30.9 Qualified Code(s): E66.09 - Other obesity due to excess calories; Z68.30 - Body mass index (BMI) 30.0-30.9, adult Category: Medical Code(s): E66.9 - Obesity, unspecified (4) Thrombocytopenia Current visit: Yes Status: Acute Category: Medical Code(s): D69.6 - Thrombocytopenia, unspecified (5) Parkinson disease Current visit: Yes Status: Acute Category: Medical Code(s): G20 - Parkinson's disease
--- NOTE | 2018-10-04 11:12 | Pharmacy Consult Notes ---
[facility] Pharmacy VTE Monitoring - Patient Demographics Admission date: 10/04/18 Report Date: 10/04/18 Time: 11:12 Allergies/Adverse Reactions: Patient Allergies No Known Allergies Allergy (Verified 09/23/18 14:20) Height: 1.75 m Weight: 92.108 kg Patient Problems: Current Active Problems Cholelithiasis (Acute) Cholecystitis (Acute) Renal insufficiency (Acute) Obese (Acute) Thrombocytopenia (Acute) Parkinson disease (Acute) - VTE Risk Labs: VTE Related Lab Results Hgb 11.1 g/dL (14.1-18.0) L D 10/04/18 04:20 Hct 34.5 % (42.0-52.0) L 10/04/18 04:20 Plt Count 138 K/mm3 (142-424) L D 10/04/18 04:20 BUN 20 mg/dL (7-18) H 10/04/18 04:20 Creatinine 1.37 mg/dL (0.70-1.30) H 10/04/18 04:20 Estimated Creat Clear 66 mL/min (50-200) 10/04/18 04:20 VTE Score: 5 VTE Risk Level: Low Risk - Prophylaxis VTE Prophylaxis Ordered?: Yes Types of VTE Prophylaxis: TEDS Knee High Location of Applied Device: Bilateral Lower Extremeties
--- NOTE | 2018-10-04 11:49 | Consult Report ---
*Admission Date: 10/04/18 *Chief complaint: Right upper quadrant abdominal pain. *History of present illness: Mr. Maravilla is a 68-year-old male that presents with right upper quadrant abdominal pain and radiation to the back. Persistent pain at home prompted evaluation and [facility] emergency department. Subsequent admission. Surgical consultation requested for potential acute cholecystitis. CT imaging obtained. Findings demonstrate cholelithiasis without pericholecystic fluid or gallbladder wall thickening. Pain has been difficult to manage. No nausea or emesis. No fever or chills. Patient was similar episode approximately 2 weeks ago, however, primary complaint was nausea and emesis; minimal pain. This prompted inpatient admission with upper GI and ultrasound. Upper GI and small bowel follow-through without significant abnormality although there is some suspicion for duodenal filling defect; EGD recommended. Gallbladder ultrasound completed. Sludge within the gallbladder noted. No evidence of pericholecystic fluid. No evidence of gallbladder wall thickening. EGD was then ultimately performed "healed ulcerations" were noted; mild gastritis. At the time of discharge additional colonoscopy and repeat EGD were recommended. According to the patient's , gallbladder surgery was discussed although this is felt not to be the [facility] Discharge home without significant improvement. Returns now with continued complaints. Incidental note a 30 pound weight loss over the past 5-6 weeks. Followed at [facility] in [place], [place] for previous renal cell carcinoma for which she is undergone left nephrectomy. This was performed in 2009. According to the patient and his there has been no evidence of recurrence. At the time of his last admission, acute kidney injury was noted; most likely secondary to dehydration from GI loss. Review of Systems - Review of Systems Review of systems:: pertinent systems reviewed and negative unless documented below - Constitutional Reports fatigue, Reports lack of energy, Reports malaise, Reports weight loss - *Respiratory Reports shortness of breath with activity - *Gastrointestinal Reports abdominal pain, Reports belching, Reports feeling full early, Reports heartburn - *Musculoskeletal Reports back pain - *Neurologic Denies abnormal walking [facility] History I have reviewed the patient's past medical history: Yes Medical History: Reports:: Cancer (left kidney. removed on 2009), Cerebrovasc ular Accident, Diabetes Mellitus Type 2, Hiatal Hernia, Hyperlipidemia, Hypertension Denies:: Diabetes Mellitus Type 1, MRSA, Seizures Have you ever received a pneumonia vaccine?: No Have you received a flu vaccine this season?: No Other Medical History: Reports: Cataracts (removed on left side). Denies: Blood Transfusion Reaction Other Surgeries: Yes: Appendectomy, Cancer Surgery (left kidney removal), Cardiac Catheterization, Colonoscopy, Hernia Repair, Other Amputation: No Fractures: No - *Social History Educational Level: Attended College Smoking Status: Unknown if ever smoked Tobacco Type: cigarettes #Yrs smoked (if former smoker): 30 Alcohol Intake: current Alcohol Intake Frequency:: holidays/special occasions only Substance Use Type: denies use Occupational Status: retired Housing: house Household Members: spouse, family Travel in the last 8 weeks: None - Psychiatric History Expresses thoughts of harming self/others: None Suicide Plan Description: No Plan *Family Hx:: No significant family history Meds Home Medications Medication Instructions Recorded Confirmed Type aspirin 81 mg tablet,delayed 81 mg PO QODHS 09/30/17 10/04/18 History release hydrochlorothiazide 25 mg tablet 25 mg PO DAILY 09/30/17 10/04/18 History lisinopril 40 mg tablet 40 mg PO DAILY 09/30/17 10/04/18 History Indapamide [Lozol 2.5mg tablet] 2.5 mg PO HS 09/10/18 10/04/18 History Metoprolol Tartrate [Lopressor 25 mg PO BID 09/10/18 10/04/18 History 25mg tablet] Simvastatin 20 mg PO HS 09/10/18 10/04/18 History linagliptin 5 mg tablet 5 mg PO DAILY 09/23/18 10/04/18 History Allergies Allergy/AdvReac Type Severity Reaction Status Date / Time No Known Allergies Allergy Verified 09/23/18 14:20 Exam Vital signs and Labs for Last 24 Hours: Temp Pulse Resp BP Pulse Ox 98.2 F 104 H 16 143/73 H 92 L 10/04/18 08:00 10/04/18 08:00 10/04/18 08:00 10/04/18 08:00 10/04/18 08:00 Laboratory Results - last 24 hr 10/03/18 22:20: Troponin I < 0.02 10/03/18 22:22: WBC 9.1, RBC 4.42 L, Hgb 13.4 L, Hct 42.5, MCV 96.1 H, MCH 30.4, MCHC 31.6 L, RDW 14.9, Plt Count 208, MPV 8.2, Neut % (Auto) 80.0, Lymph % (Auto) 14.4, [place] % (Auto) 4.1, Eos % (Auto) 1.1, Baso % (Auto) 0.3, Neut # (Auto) 7.3, Lymph # (Auto) 1.3, [place] # (Auto) 0.4, Eos # (Auto) 0.1, Baso # (Auto) 0.0 10/03/18 22:22: Sodium 138, Potassium 4.5, Chloride 102, Carbon Dioxide 27, Anion Gap 13.5, BUN 19 H, Creatinine 1.49 H, Estimated Creat Clear 63, Estimated GFR 47 L, Est GFR ( Amer) 57 L, Glucose 154 H, Calcium 9.0, Total Bilir ubin 0.7, AST 12 L, ALT 17, Alkaline Phosphatase 123 H, C-Reactive Protein 0.6, Total Protein 8.1, Albumin 4.2, Globulin 3.9 H, Albumin/Globulin Ratio 1.1, Amylase 78, Lipase 312 10/03/18 22:22: ESR 19 10/04/18 04:20: WBC 9.7, RBC 3.65 L, Hgb 11.1 L D, Hct 34.5 L, MCV 94.5 H, MCH 30.4, MCHC 32.1, RDW 14.9, Plt Count 138 L D, MPV 8.2, Neut % (Auto) 90.4 H, Lymph % (Auto) 5.3 L, [place] % (Auto) 3.8, Eos % (Auto) 0.4, Baso % (Auto) 0.1, Neut # (Auto) 8.8 H, Lymph # (Auto) 0.5 L, [place] # (Auto) 0.4, Eos # (Auto) 0.0, Baso # (Auto) 0.0, Total Counted 100, Neutrophils % (Manual) 83 H, Band Neutrophils % 11.0 H, Lymphocytes % (Manual) 5 L, Monocytes % (Manual) 1 L, Platelet Estimate Slight decrease, RBC Morphology Normal 10/04/18 04:20: Sodium 140, Potassium 4.4, Chloride 106, Carbon Dioxide 24, Anion Gap 14.4, BUN 20 H, Creatinine 1.37 H, Estimated Creat Clear 66, Estimated GFR 52 L, Est GFR ( Amer) 62, Glucose 146 H, Calcium 8.6, Troponin I < 0.02 10/04/18 06:38: POC Glucose 120 H I & O for Last 24 hours: Intake & Output 10/01/18 10/02/18 10/03/18 10/04/18 11:59 11:59 11:59 11:59 Intake Total 0 / 0 Balance 0 / 0 Weight 92.108 kg - Constitutional mild distress - *Routine Respiratory Exam Present: CTA bilaterally - *Routine Cardiovascular Exam Present: RRR - *Routine Abdominal Exam Present: soft, tenderness, distended Comments: No peritonitis. Nontender guarding only. Results - Labs 10/04/18 04:20 10/04/18 04:20 Laboratory Results - last 24 hr 10/03/18 22:20: Troponin I < 0.02 10/03/18 22:22: WBC 9.1, RBC 4.42 L, Hgb 13.4 L, Hct 42.5, MCV 96.1 H, MCH 30.4, MCHC 31.6 L, RDW 14.9, Plt Count 208, MPV 8.2, Neut % (Auto) 80.0, Lymph % (Auto) 14.4, [place] % (Auto) 4.1, Eos % (Auto) 1.1, Baso % (Auto) 0.3, Neut # (Auto) 7.3, Lymph # (Auto) 1.3, [place] # (Auto) 0.4, Eos # (Auto) 0.1, Baso # (Auto) 0.0 10/03/18 22:22: Sodium 138, Potassium 4.5, Chloride 102, Carbon Dioxide 27, Anion Gap 13.5, BUN 19 H, Creatinine 1.49 H, Estimated Creat Clear 63, Estimated GFR 47 L, Est GFR ( Amer) 57 L, Glucose 154 H, Calcium 9.0, Total Bilirubin 0.7, AST 12 L, ALT 17, Alkaline Phosphatase 123 H, C-Reactive Protein 0.6, Total Protein 8.1, Albumin 4.2, Globulin 3.9 H, Albumin/Globulin Ratio 1.1, Amylase 78, Lipase 312 10/03/18 22:22: ESR 19 10/04/18 04:20: WBC 9.7, RBC 3.65 L, Hgb 11.1 L D, Hct 34.5 L, MCV 94.5 H, MCH 30.4, MCHC 32.1, RDW 14.9, Plt Count 138 L D, MPV 8.2, Neut % (Auto) 90.4 H, Lymph % (Auto) 5.3 L, [place] % (Auto) 3.8, Eos % (Auto) 0.4, Baso % (Auto) 0.1, Neut # (Auto) 8.8 H, Lymph # (Auto) 0.5 L, [place] # (Auto) 0.4, Eos # (Auto) 0.0, Baso # (Auto) 0.0, Total Counted 100, Neutrophils % (Manual) 83 H, Band Neutrophils % 11.0 H, Lymphocytes % (Manual) 5 L, Monocytes % (Manual) 1 L, Platelet Estimate Slight decrease, RBC Morphology Normal 10/04/18 04:20: Sodium 140, Potassium 4.4, Chloride 106, Carbon Dioxide 24, Anion Gap 14.4, BUN 20 H, Creatinine 1.37 H, Estimated Creat Clear 66, Estimated GFR 52 L, Est GFR ( Amer) 62, Glucose 146 H, Calcium 8.6, Troponin I < 0.02 10/04/18 06:38: POC Glucose 120 H - Imaging CT scan - abdomen: report reviewed US - abdomen: report reviewed (Previous gallbladder ultrasound with sludge. No ductal dilation. No pericholecystic fluid. No evidence of acute cholecystitis.) Assessment and Plan (1) Cholelithiasis Start date: 10/04/18 Current visit: Yes Status: Acute Qualifiers: Cholelithiasis location: gallbladder Cholecystitis presence: without cholecystitis Biliary obstruction: without biliary obstruction Qualified Code(s): K80.20 - Calculus of gallbladder without cholecystitis without obstruction Category: Medical Code(s): K80.20 - Calculus of gallbladder without cholecystitis without obstruction Symptomatic cholelithiasis. No evidence of acute cholecystitis. Oral intake limited. Pain control difficult. Upper GI and EGD reviewed. Gallbladder ultrasound reviewed. Minimal stones are noted on imaging. Healed ulcerations noted on mild elevation of alkaline phosphatase is noted. Normal AST and ALT. Normal bilirubin. Slight elevation in creatinine is also noted. Mild anemia; hemoglobin 11+. It is possible that the etiology of abdominal pain may be from different source other than symptomatic cholelithiasis. Patient has history of left renal cell carcinoma, however, further evaluation and surveillance is demonstrated no evident disease to date. Begin IV antibiotics. Allow clear liquids. Trend abdominal pain and clinical course today. Possible cholecystectomy as early as October 05, 2018. No further imaging required at this time. (2) Renal insufficiency Current visit: Yes Status: Acute Category: Medical Code(s): N28.9 - Disorder of kidney and ureter, unspecified (3) Obese Current visit: Yes Status: Acute Qualifiers: Obesity type: due to excess calories Obesity classification: adult class 1 (BMI 30 - 34.9) Serious obesity comorbidity presence: with serious comorbidity Body mass index: BMI 30.0-30.9 Qualified Code(s): E66.09 - Other obesity due to excess calories; Z68.30 - Body mass index (BMI) 30.0-30.9, adult Category: Medical Code(s): E66.9 - Obesity, unspecified (4) Thrombocytopenia Current visit: Yes Status: Acute Category: Medical Code(s): D69.6 - Thrombocytopenia, unspecified (5) Parkinson disease Current visit: Yes Status: Acute Category: Medical Code(s): G20 - Parkinson's disease
--- NOTE | 2018-10-05 09:03 | Progress Note ---
Internal Medicine - PN: Subj *Date: 10/05/18 *Time: 09:00 Interval history: doing better with some nausea and dizzyness with walking - awaiting surg eval this am Exam Vital signs and Labs for Last 24 Hours: Temp Pulse Resp BP Pulse Ox 97.9 F 90 16 119/67 97 10/05/18 04:00 10/05/18 05:00 10/05/18 04:00 10/05/18 04:00 10/05/18 04:00 Laboratory Results - last 24 hr 10/04/18 11:41: POC Glucose 176 H 10/04/18 16:21: POC Glucose 154 H 10/04/18 20:29: POC Glucose 143 H 10/05/18 06:04: POC Glucose 142 H I & O for Last 24 hours: Intake & Output 10/02/18 10/03/18 10/04/18 10/05/18 11:59 11:59 11:59 11:59 Intake Total 0 / 0 960 / 960 Balance 0 / 0 960 / 960 Weight 203 lb 1 oz 213 lb 5 oz - Constitutional no acute distress, obese - *Routine HEENT Exam Head: Present: normocephalic Eye: Present: EOMI, PERRL. Absent: conjunctival icterus ENT: Present: mucous membranes dry - *Routine Neck Exam Present: supple - *Routine Respiratory Exam Present: CTA bilaterally - *Routine Cardiovascular Exam Present: RRR, murmur - *Routine Abdominal Exam Present: soft - *Routine Extremities Exam Absent: edema - *Routine Skin Exam Present: intact - *Routine Neurological Exam Present: alert, CN II-XII intact - Routine Psychiatric Exam Present: normal affect Assessment and Plan (1) Cholelithiasis Start date: 10/04/18 Current visit: Yes Status: Acute Qualifiers: Cholelithiasis location: gallbladder Cholecystitis presence: without cholecystitis Biliary obstruction: without biliary obstruction Qualified Code(s): K80.20 - Calculus of gallbladder without cholecystitis without obstruction Category: Medical Code(s): K80.20 - Calculus of gallbladder without cholecystitis without obstruction (2) Renal insufficiency Current visit: Yes Status: Acute Category: Medical Code(s): N28.9 - Disorder of kidney and ureter, unspecified (3) Obese Current visit: Yes Status: Acute Qualifiers: Obesity type: due to excess calories Obesity classification: adult class 1 (BMI 30 - 34.9) Serious obesity comorbidity presence: with serious comorbidity Body mass index: BMI 30.0-30.9 Qualified Code(s): E66.09 - Other obesity due to excess calories; Z68.30 - Body mass index (BMI) 30.0-30.9, adult Category: Medical Code(s): E66.9 - Obesity, unspecified (4) Thrombocytopenia Current visit: Yes Status: Acute Category: Medical Code(s): D69.6 - Thrombocytopenia, unspecified (5) Parkinson disease Current visit: Yes Status: Acute Category: Medical Code(s): G20 - Parkinson's disease
[2018-10-05 10:29] LABS: Basophils % 0.1 % (0.1-2.0); Eosinophils % 0.1 % (0.1-12.0); Hemoglobin 9.7 g/dL (14.1-18.0); Lymphocytes # 0.4 K/mm3 (0.7-4.5); Mean Corpuscular HGB Conc 31.3 g/dL (31.8-35.4); Mean Corpuscular Hemoglobin 30.1 pg (27.0-31.2); Mean Corpuscular Volume 96.1 fl (80-94); Mean Platelet Volume 9.3 fl (7.4-10.4); Monocytes # 0.5 K/mm3 (0.1-1.0); Monocytes % 3.3 % (1.7-9.3); Neutrophils % 93.5 % (37.0-80.0); Platelet Count 84 K/mm3 (142-424); Red Blood Count 3.22 M/mm3 (4.60-6.20); Red Cell Distribution Width 15.3 % (11.5-17.5); White Blood Count 13.9 K/mm3 (4.8-10.8)
[2018-10-05 10:31] LABS: Calcium 8.1 mg/dL (8.5-10.1)
[2018-10-05 10:35] LABS: Activated Partial Thrombo Time 34.4 seconds (23.6-34.0); INR 1.34 (0.9-1.1); Prothrombin Time 13.7 seconds (9.4-11.8)
[2018-10-05 10:46] LABS: Lymphocytes % 7 % (10-50); Monocytes % 2 % (2-9); Neutrophils % 89 % (42-76); RBC Morphology Normal; Total Cells Counted 100
--- NOTE | 2018-10-05 10:46 | Progress Note ---
[facility] Anesthesia Checklist - Patient Identification Patient Identification: Arm Band, Verbal (Name & ) - Structural Data Admitted From: Inpatient Planned Operative Procedure/s: lap choly Verified Documents: History and Physical - NPO Status Verified Time NPO: 00:00 - Chart Verification Results Verified: CBC, BMP - Additional verifications Patient : No Anesthesia Reactions: No Hx Blood Transfusions: No Blood Transfusion Reaction: No Cephalosporin Allergy: No Previous Colonoscopy: Yes - Cardiovascular Assessment Heart Sounds: S1 & S2 Pulse Strength: Baseline Pulse Rhythm: Regular Peripheral Edema: No - Airway Assessment C-Spine Mobility Assessed: Yes TMJ Mobility Assessed: Yes Dentition: Edentulous - Neurological Assessment Level of Consciousness: Awake, Alert, Appropriate Hx Seizures: No Numbness or tingling in extremities: No - Anesthesia Plan Anesthesia Risk discussed: Yes Anesthesia Plan: Verified ASA Class: III Anesthesia Type: General [facility] History I have reviewed the patient's past medical history: Yes Medical History: Reports:: Cancer (left kidney. removed on 2009), Cerebrovascular Accident, Diabetes Mellitus Type 2, Hiatal Hernia, Hyperlipidemia, Hypertension Denies:: Diabetes Mellitus Type 1, MRSA, Seizures Have you ever received a pneumonia vaccine?: No Have you received a flu vaccine this season?: No Other Medical History: Reports: Cataracts (removed on left side). Denies: Blood Transfusion Reaction Other Surgeries: Yes: Appendectomy, Cancer Surgery (left kidney removal), Cardiac Catheterization, Colonoscopy, Hernia Repair, Other Amputation: No Fractures: No - *Social History Educational Level: Attended College Smoking Status: Unknown if ever smoked Tobacco Type: cigarettes #Yrs smoked (if former smoker): 30 Alcohol Intake: current Alcohol Intake Frequency:: holidays/special occasions only Substance Use Type: denies use Occupational Status: retired Housing: house Household Members: spouse, family Travel in the last 8 weeks: None - Psychiatric History Expresses thoughts of harming self/others: None Suicide Plan Description: No Plan *Family Hx:: No significant family history
--- NOTE | 2018-10-05 11:51 | Progress Note ---
Subjective Patient reports: still having pain, shortness of breath Narrative: Mr. Maravilla is a 68-year-old male admitted for right upper quadrant abdominal pain. Radiation to the right flank. Today is hospital day #2. Pain persist although slightly improved. Mild nausea earlier this morning. Clinical symptoms, however, remain persistent. Discussed with Dr. Garcia. Exam Vital signs and Labs for Last 24 Hours: Temp Pulse Resp BP Pulse Ox 97.9 F 90 16 119/67 97 10/05/18 04:00 10/05/18 05:00 10/05/18 04:00 10/05/18 04:00 10/05/18 04:00 Laboratory Results - last 24 hr 10/04/18 11:41: POC Glucose 176 H 10/04/18 16:21: POC Glucose 154 H 10/04/18 20:29: POC Glucose 143 H 10/05/18 06:04: POC Glucose 142 H 10/05/18 10:08: WBC 13.9 H D, RBC 3.22 L, Hgb 9.7 L, Hct 31.0 L, MCV 96.1 H, MCH 30.1, MCHC 31.3 L, RDW 15.3, Plt Count 84 L D, MPV 9.3, Neut % (Auto) 93.5 H, Lymph % (Auto) 3.0 L, [place] % (Auto) 3.3, Eos % (Auto) 0.1, Baso % (Auto) 0.1, Neut # (Auto) 13.0 H, Lymph # (Auto) 0.4 L, [place] # (Auto) 0.5, Eos # (Auto) 0.0, Baso # (Auto) 0.0, Total Counted 100, Neutrophils % (Manual) 89 H, Band Neutrophils % 2.0, Lymphocytes % (Manual) 7 L, Monocytes % (Manual) 2, Platelet Estimate Moderate decrease, RBC Morphology Normal 10/05/18 10:08: PT 13.7 H, INR 1.34 H, APTT 34.4 H 10/05/18 10:08: Sodium 137, Potassium 5.0, Chloride 104, Carbon Dioxide 24, Anion Gap 14.0, BUN 34 H D, Creatinine 1.95 H D, Estimated Creat Clear 49, Estimated GFR 34 L, Est GFR ( Amer) 41 L D, Glucose 139 H, Calcium 8.1 L 10/05/18 11:15: POC Glucose 139 H I & O for Last 24 hours: Intake & Output 10/02/18 10/03/18 10/04/18 10/05/18 11:59 11:59 11:59 11:59 Intake Total 0 / 0 960 / 960 Balance 0 / 0 960 / 960 Weight 92.108 kg 96.757 kg - *Routine Respiratory Exam Present: decreased breath sounds Comments: Slightly increased work of breathing. - *Routine Cardiovascular Exam Present: RRR - *Routine Abdominal Exam Present: tenderness, guarding Comments: Mild abdominal tenderness. Voluntary guarding. Predominately located in right upper quadrant. No peritonitis. Progress Note: A&P (1) Cholelithiasis Status: Acute Assessment and plan: Symptomatic cholelithiasis. WBC remains normal. Nontoxic and nonseptic. Clinical history most consistent with symptomatic gallstones; it is understood after discussion with both patient and spouse that complains of right upper quadrant abdominal pain could possibly be persistent after laparoscopic cholecystectomy. Increased risk for conversion to open cholecystectomy based on prior history of abdominal operative procedures; including left nephrectomy. Still, decision has been made to proceed with gallbladder removal based on a clinical history that is mostly consistent with above diagnosis. All risks benefits discussed. All goals and alternatives discussed. We have agreed to proceed. Current Visit: Yes (2) Renal insufficiency Status: Acute Current Visit: Yes (3) Obese Status: Acute Current Visit: Yes (4) Thrombocytopenia Status: Acute Current Visit: Yes (5) Parkinson disease Status: Acute Current Visit: Yes
[2018-10-05 14:05] LABS: Basophils % 0.1 % (0.1-2.0); Eosinophils % 0.1 % (0.1-12.0); Hematocrit 29.9 % (42.0-52.0); Hemoglobin 9.3 g/dL (14.1-18.0); Lymphocytes # 0.5 K/mm3 (0.7-4.5); Lymphocytes % 2.9 % (10-50); Mean Corpuscular HGB Conc 31.1 g/dL (31.8-35.4); Mean Corpuscular Hemoglobin 30.1 pg (27.0-31.2); Mean Corpuscular Volume 96.8 fl (80-94); Mean Platelet Volume 9.1 fl (7.4-10.4); Monocytes # 0.5 K/mm3 (0.1-1.0); Neutrophils # 16.3 K/mm3 (1.8-7.8); Platelet Count 95 K/mm3 (142-424); Red Blood Count 3.09 M/mm3 (4.60-6.20); Red Cell Distribution Width 15.3 % (11.5-17.5); White Blood Count 17.4 K/mm3 (4.8-10.8)
--- NOTE | 2018-10-05 14:51 | Operative Note ---
Date of procedure: 10/05/18 Pre-op Diagnosis:: Biliary colic. Symptomatic cholelithiasis. Post-op Diagnosis:: Acute cholecystitis. Gallbladder ischemia. Procedure performed:: Open cholecystectomy. Surgeon:: Nathen Carl MD ROD BUSTER:: Pablo Cruz Anesthesia: GETA Estimated blood loss (mL): 750 Operative findings:: Gallbladder ischemia with tense gallbladder. Large amount of sludge within gallbladder. Inflammatory rind with pericholecystic fluid. Operative note:: INDICATIONS: Mr. Maravilla is a 68-year-old male with right upper quadrant abdominal pain for approximately 72 hours. Additional complaint of nausea and emesis for the past 2 weeks. 30 pound weight loss over the past 4-5 weeks. Difficulty with oral intake. Clinical history consistent with symptomatic cholelithiasis. Gallbladder ultrasound with biliary sludge. Slightly elevated alkaline phosphatase. Patient was admitted with right upper quadrant abdominal pain. Right upper quadrant tenderness demonstrated on clinical abdominal examination. Failure to improve with IV antibiotics prompted decision on hospital day #2 to proceed with cholecystectomy. Anticipated laparoscopic approach with understood risk of conversion to open cholecystectomy. All risks and benefits discussed with Mr. Maravilla. Patient agreed the above stated procedures. FINDINGS: Gallbladder palpable after intubation and relaxation of the abdominal wall. Tense gallbladder with large volume of clear bile. Large amount of sludge and debris within the fundus of the gallbladder. Early laparoscopic bleeding from the midportion of the gallbladder prompted conversion to open cholecystectomy. DETAILS OF OPERATION: Patient is probably identified and consent was obtained. Patient brought to the operating room. Transferred to the operating room table. General tracheal anesthesia was administered. The abdomen was prepped and draped in standard surgical fashion. Visual inspection of the abdominal wall demonstrated left nephrectomy transverse incision. Periumbilical incision also noted from prior umbilical hernia repair. Palpation of the abdominal wall demonstrated a palpable gallbladder in the right upper quadrant. Tense and firm. Midline incision was made above the umbilicus away from reported umbilical mesh. The abdominal cavity without difficulty. A 12 mm trochars placed through the supraumbilical incision. Abdomen was insufflated. 5 mm trochars were placed in the subcostal plane x3. The gallbladder was then noted to be relatively isc hemic in appearance. Aspirator was passed into the gallbladder lumen. Large volume of clear bile was evacuated with aspiration. Gallbladder was retracted over the liver edge. Fundus of the gallbladder was grasped with nonlocking graspers. Immediate opening of the gallbladder at this location was then visualized. Sludge was evacuated from the midportion of the gallbladder opening. There was noted to be a dense inflammatory rind around the majority of the gallbladder. The dome of the gallbladder could be easily visualized. Inflammatory adhesions were taken down bluntly with [place] dissectors. Based on difficulty grasping the gallbladder, peritoneal reflection of the gallbladder was released with cautery at its midportion. This appeared to be away from the central intrahepatic biliary structures. Bleeding was encountered in this area that was thought to be from the cystic artery itself. Immediate conversion to open cholecystectomy of subcostal incision was then performed. A [place] retractor was used to facilitate visualization. Bleeding was controlled with manual pressure. Bleeding was then controlled at this area with 2 surgical clips. Both clips were placed at the level of the gallbladder itself. Dome down technique was then performed to remove the gallbladder. Gallbladder was released from the gallbladder fossa. A portion of the gallbladder was noted to be in intrahepatic position. The bladder was mobilized to the level of the cystic duct. The cystic duct was controlled with 1 clip proximal and 2 clips distally. Cystic duct was then divided under direct visualization with the parenchyma of the liver visualized and a window created with dissection at the level of the confluence of the cystic duct and gallbladder. A critical view was obtained prior to division of the cystic duct and cystic artery. 2 clips have been placed at the proximal portion of the cystic artery. A distal clip was then placed and the cystic artery was divided. A third clip was placed distal to the 2 prior clips placed for bleeding control. Overall 5 clips were present within the gallbladder fossa. This included 2 clips on the distal cystic duct and 3 clips on the proximal cystic artery. Gallbladder was delivered away from the table for pathology evaluation. Gallbladder fossa was reinspected. There was no evidence of bleeding. There is no evidence of bile leak. Surgicel was placed in the gallbladder fossa for prevention of postoperative oozing. 10 [place] ASHVIN drain was delivered through separate stab incision and brought to the gallbladder fossa. Peritoneum was closed with running Vicryl suture. Subcostal fascia was closed with interrupted Vicryl suture. Skin closed with 2-0 Vicryl and 4-0 Monocryl. Sterile dressing was applied. The umbilical port site fascia was closed with interrupted Vicryl suture and 4-0 Monocryl. Sterile dressing applied. The ASHVIN drain was placed to bulb suction. There appeared to be some discoloration of the drain output. This was at first suspicious for bile leak. This was reinspected prior to closure. There is noted be discoloration from Surgicel. Surgicel was removed in the right upper quadrant was irrigated and suctioned. With reinspection, there is no evidence of bile leak. All clips appeared to be in adequate position and away from the common bile duct structures. Patient was then transferred to the postanesthetic area without surgical or anesthetic complication. Approximately 750 mL's of blood loss was encountered. This obviously was more than expected and prompted conversion from laparoscopic to open cholecystectomy. Specimens: As above. Complications: None. Operative findings discussed with family. Intraoperative bleeding discussed with family. Patient transferred to progressive care unit for continued postoperative care. Condition: stable Disposition: floor Specimens:: Gallbladder. Complications:: None. No immediate complications.
--- NOTE | 2018-10-05 14:52 | Progress Note ---
[facility] Anesthesia Record Part II Discharge Time: 15:20 Destination: Medical Surgical Department PACU nurse assessment reviewed?: Yes Patient Condition:: Good Anesthesia Complications:: None Swallowing reflex intact?: Yes Cyanosis?: No
--- NOTE | 2018-10-05 14:52 | Progress Note ---
[facility] Anesthesia Record Part I Intake, IV Amount: 1,400 Estimated blood loss (mL): 750 Urine output (mL): 0 Blood Products used (#): none Blood Pressure: 157/75 SaO2: 97 Pulse Rate: 97 Respiratory Rate: 20 Temperature: 98.4 F Patient is:: Drowsy, Nasal O2, Stable Stable to PACU at:: 14:50
[2018-10-05 17:51] LABS: Lymphocytes # 0.3 K/mm3 (0.7-4.5); Lymphocytes % 2.6 % (10-50); Mean Corpuscular HGB Conc 30.5 g/dL (31.8-35.4); Mean Corpuscular Hemoglobin 29.6 pg (27.0-31.2); Mean Corpuscular Volume 96.9 fl (80-94); Mean Platelet Volume 11.2 fl (7.4-10.4); Monocytes # 0.2 K/mm3 (0.1-1.0); Neutrophils # 11.3 K/mm3 (1.8-7.8); Neutrophils % 95.4 % (37.0-80.0); Platelet Count 65 K/mm3 (142-424); Red Blood Count 2.82 M/mm3 (4.60-6.20); Red Cell Distribution Width 15.2 % (11.5-17.5); White Blood Count 11.9 K/mm3 (4.8-10.8)
[2018-10-05 17:52] LABS: Hematocrit 27.3 % (42.0-52.0); Hemoglobin 8.3 g/dL (14.1-18.0)
[2018-10-05 18:05] LABS: Albumin Level 2.9 gm/dL (3.4-5.0); Albumin/Globulin Ratio 1.1 (1.1-1.8); Anion Gap 15.3 mEq/L (5-15); Bilirubin,Total 1.5 mg/dL (0.2-1.0); Calcium 8.3 mg/dL (8.5-10.1); Globulin 2.6 gm/dl (1.3-3.2); Potassium 5.3 mmoL/L (3.5-5.1); Total Protein,Serum 5.5 gm/dL (6.4-8.2)
[2018-10-06 06:37] LABS: Albumin Level 2.6 gm/dL (3.4-5.0); Anion Gap 13.7 mEq/L (5-15); Bilirubin,Total 0.7 mg/dL (0.2-1.0); Calcium 8.1 mg/dL (8.5-10.1); Globulin 2.7 gm/dl (1.3-3.2); Potassium 4.7 mmoL/L (3.5-5.1); Total Protein,Serum 5.3 gm/dL (6.4-8.2)
[2018-10-06 06:39] LABS: Basophils % 0.1 % (0.1-2.0); Hematocrit 24.9 % (42.0-52.0); Lymphocytes # 0.4 K/mm3 (0.7-4.5); Lymphocytes % 3.9 % (10-50); Mean Corpuscular Hemoglobin 30.1 pg (27.0-31.2); Mean Corpuscular Volume 97.3 fl (80-94); Mean Platelet Volume 9.4 fl (7.4-10.4); Monocytes # 0.4 K/mm3 (0.1-1.0); Monocytes % 3.5 % (1.7-9.3); Neutrophils # 9.3 K/mm3 (1.8-7.8); Neutrophils % 92.5 % (37.0-80.0); Platelet Count 69 K/mm3 (142-424); Red Blood Count 2.56 M/mm3 (4.60-6.20); Red Cell Distribution Width 15.2 % (11.5-17.5)
[2018-10-06 06:52] LABS: Hemoglobin 7.7 g/dL (14.1-18.0)
--- NOTE | 2018-10-06 08:11 | Progress Note ---
Subjective Narrative: Patient complains of mainly being sore. No nausea. Exam Vital signs and Labs for Last 24 Hours: Temp Pulse Resp BP Pulse Ox 98.3 F 86 15 110/62 98 10/06/18 04:00 10/06/18 06:00 10/06/18 06:00 10/06/18 06:00 10/06/18 07:46 Laboratory Results - last 24 hr 10/05/18 10:08: WBC 13.9 H D, RBC 3.22 L, Hgb 9.7 L, Hct 31.0 L, MCV 96.1 H, MCH 30.1, MCHC 31.3 L, RDW 15.3, Plt Count 84 L D, MPV 9.3, Neut % (Auto) 93.5 H, Lymph % (Auto) 3.0 L, [place] % (Auto) 3.3, Eos % (Auto) 0.1, Baso % (Auto) 0.1, Neut # (Auto) 13.0 H, Lymph # (Auto) 0.4 L, [place] # (Auto) 0.5, Eos # (Auto) 0.0, Baso # (Auto) 0.0, Total Counted 100, Neutrophils % (Manual) 89 H, Band Neutrophils % 2.0, Lymphocytes % (Manual) 7 L, Monocytes % (Manual) 2, Platelet Estimate Moderate decrease, RBC Morphology Normal 10/05/18 10:08: PT 13.7 H, INR 1.34 H, APTT 34.4 H 10/05/18 10:08: Sodium 137, Potassium 5.0, Chloride 104, Carbon Dioxide 24, Anion Gap 14.0, BUN 34 H D, Creatinine 1.95 H D, Estimated Creat Clear 49, Estimated GFR 34 L, Est GFR ( Amer) 41 L D, Glucose 139 H, Calcium 8.1 L 10/05/18 11:15: POC Glucose 139 H 10/05/18 13:04: WBC 17.4 H D, RBC 3.09 L, Hgb 9.3 L, Hct 29.9 L, MCV 96.8 H, MCH 30.1, MCHC 31.1 L, RDW 15.3, Plt Count 95 L, MPV 9.1, Neut % (Auto) 94.0 H, Lymph % (Auto) 2.9 L, [place] % (Auto) 3.0, Eos % (Auto) 0.1, Baso % (Auto) 0.1, Neut # (Auto) 16.3 H, Lymph # (Auto) 0.5 L, [place] # (Auto) 0.5, Eos # (Auto) 0.0, Baso # (Auto) 0.0 10/05/18 13:10: Blood Type Confirm O Positive 10/05/18 15:00: Urine Color Yellow, Urine Appearance Clear, Urine pH 7.0, Ur Specific [place] 1.010, Urine Protein Trace, Urine Glucose (UA) Negative, Urine Ketones Negative, Urine Blood Negative, Urine Nitrate Negative, Urine Bilirubin Negative, Urine Urobilinogen 2.0, Ur Leukocyte Esterase Negative, Urine WBC 3-5, Ur Squamous Epith Cells Occasional, Urine Bacteria 2+ A 10/05/18 16:54: POC Glucose 174 H 10/05/18 17:30: WBC 11.9 H D, RBC 2.82 L, Hgb 8.3 L D, Hct 27.3 L, MCV 96.9 H, MCH 29.6, MCHC 30.5 L, RDW 15.2, Plt Count 65 L D, MPV 11.2 H, Neut % (Auto) 95.4 H, Lymph % (Auto) 2.6 L, [place] % (Auto) 2.0, Eos % (Auto) 0.0 L, Baso % (Au to) 0.0 L, Neut # (Auto) 11.3 H, Lymph # (Auto) 0.3 L, [place] # (Auto) 0.2, Eos # (Auto) 0.0, Baso # (Auto) 0.0 10/05/18 17:30: Sodium 136, Potassium 5.3 H, Chloride 104, Carbon Dioxide 22, Anion Gap 15.3 H, BUN 36 H, Creatinine 1.95 H, Estimated Creat Clear 49, Estimated GFR 34 L, Est GFR ( Amer) 41 L, Glucose 177 H D, Calcium 8.3 L, Total Bilirubin 1.5 H, AST 49 H D, ALT 62 D, Alkaline Phosphatase 91, Total Protein 5.5 L D, Albumin 2.9 L, Globulin 2.6, Albumin/Globulin Ratio 1.1 10/05/18 17:30: Blood Type O Positive, Antibody Screen Positive, Crossmatch (AHG) See Detail 10/05/18 17:30: Antibody Identification Anti-E 10/05/18 20:38: POC Glucose 163 H 10/06/18 00:42: POC Glucose 147 H 10/06/18 05:23: WBC 10.0, RBC 2.56 L, Hgb 7.7 L*, Hct 24.9 L, MCV 97.3 H, MCH 30.1, MCHC 31.0 L, RDW 15.2, Plt Count 69 L, MPV 9.4, Neut % (Auto) 92.5 H, Lymph % (Auto) 3.9 L, [place] % (Auto) 3.5, Eos % (Auto) 0.0 L, Baso % (Auto) 0.1, Neut # (Auto) 9.3 H, Lymph # (Auto) 0.4 L, [place] # (Auto) 0.4, Eos # (Auto) 0.0, Baso # (Auto) 0.0 10/06/18 05:23: Sodium 138, Potassium 4.7, Chloride 105, Carbon Dioxide 24, Anion Gap 13.7, BUN 37 H, Creatinine 1.81 H, Estimated Creat Clear 54, Estimated GFR 37 L, Est GFR ( Amer) 45 L, Glucose 133 H D, Calcium 8.1 L, Total Bilirubin 0.7, AST 32 D, ALT 47, Alkaline Phosphatase 85, Total Protein 5.3 L, Albumin 2.6 L D, Globulin 2.7, Albumin/Globulin Ratio 1.0 L 10/06/18 05:30: POC Glucose 119 H I & O for Last 24 hours: Intake & Output 10/03/18 10/04/18 10/05/18 10/06/18 11:59 11:59 11:59 11:59 Intake Total 0 / 0 960 / 960 2398 / 2398 Output Total 945 / 945 Balance 0 / 0 960 / 960 1453 / 1453 Weight 203 lb 1 oz 213 lb 5 oz 217 lb 6 oz - Constitutional no acute distress - *Routine HEENT Exam Eye: Absent: conjunctival icterus - *Routine Abdominal Exam Present: soft, normoactive bowel sounds Comments: Slightly distended. ASHVIN output nonbilious. Progress Note: A&P (1) Cholelithiasis Status: Acute Current Visit: Yes (2) Renal insufficiency Status: Acute Current Visit: Yes (3) Obese Status: Acute Current Visit: Yes (4) Thrombocytopenia Status: Acute Current Visit: Yes (5) Parkinson disease Status: Acute Current Visit: Yes Assessment and Plan for All Diagnoses:: Transfusion today. Monitor drain output. Continue NPO for now.l
[2018-10-06 08:48] LABS: Lymphocytes % 3 % (10-50); Monocytes % 6 % (2-9); Neutrophils % 91 % (42-76); Total Cells Counted 100
[2018-10-06 08:49] LABS: RBC Morphology Normal
--- NOTE | 2018-10-06 12:27 | Progress Note ---
Subjective Narrative: Patient has received a single unit of packed red blood cells. Awaiting second unit transfusion. Feels a bit better. Exam Vital signs and Labs for Last 24 Hours: Temp Pulse Resp BP Pulse Ox 97.9 F 84 16 131/72 99 10/06/18 11:35 10/06/18 11:35 10/06/18 11:35 10/06/18 11:35 10/06/18 11:35 Laboratory Results - last 24 hr 10/05/18 13:04: WBC 17.4 H D, RBC 3.09 L, Hgb 9.3 L, Hct 29.9 L, MCV 96.8 H, MCH 30.1, MCHC 31.1 L, RDW 15.3, Plt Count 95 L, MPV 9.1, Neut % (Auto) 94.0 H, Lymph % (Auto) 2.9 L, [place] % (Auto) 3.0, Eos % (Auto) 0.1, Baso % (Auto) 0.1, Neut # (Auto) 16.3 H, Lymph # (Auto) 0.5 L, [place] # (Auto) 0.5, Eos # (Auto) 0.0, Baso # (Auto) 0.0 10/05/18 13:10: Blood Type Confirm O Positive 10/05/18 15:00: Urine Color Yellow, Urine Appearance Clear, Urine pH 7.0, Ur Specific [place] 1.010, Urine Protein Trace, Urine Glucose (UA) Negative, Urine Ketones Negative, Urine Blood Negative, Urine Nitrate Negative, Urine Bilirubin Negative, Urine Urobilinogen 2.0, Ur Leukocyte Esterase Negative, Urine WBC 3-5, Ur Squamous Epith Cells Occasional, Urine Bacteria 2+ A 10/05/18 16:54: POC Glucose 174 H 10/05/18 17:30: WBC 11.9 H D, RBC 2.82 L, Hgb 8.3 L D, Hct 27.3 L, MCV 96.9 H, MCH 29.6, MCHC 30.5 L, RDW 15.2, Plt Count 65 L D, MPV 11.2 H, Neut % (Auto) 95.4 H, Lymph % (Auto) 2.6 L, [place] % (Auto) 2.0, Eos % (Auto) 0.0 L, Baso % (Auto) 0.0 L, Neut # (Auto) 11.3 H, Lymph # (Auto) 0.3 L, [place] # (Auto) 0.2, Eos # (Auto) 0.0, Baso # (Auto) 0.0 10/05/18 17:30: Sodium 136, Potassium 5.3 H, Chloride 104, Carbon Dioxide 22, Anion Gap 15.3 H, BUN 36 H, Creatinine 1.95 H, Estimated Creat Clear 49, Estimated GFR 34 L, Est GFR ( Amer) 41 L, Glucose 177 H D, Calcium 8.3 L, Total Bilirubin 1.5 H, AST 49 H D, ALT 62 D, Alkaline Phosphatase 91, Total Protein 5.5 L D, Albumin 2.9 L, Globulin 2.6, Albumin/Globulin Ratio 1.1 10/05/18 17:30: Blood Type O Positive, Antibody Screen Positive, Crossmatch (AHG) See Detail 10/05/18 17:30: Antibody Identification Anti-E 10/05/18 20:38: POC Glucose 163 H 10/06/18 00:42: POC Glucose 147 H 10/06/18 05:23: WBC 10.0, RBC 2.56 L, Hgb 7.7 L*, Hct 24.9 L, MCV 97.3 H, MCH 30.1, MCHC 31.0 L, RDW 15.2, Plt Count 69 L, MPV 9.4, Neut % (Auto) 92.5 H, Lymph % (Auto) 3.9 L, [place] % (Auto) 3.5, Eos % (Auto) 0.0 L, Baso % (Auto) 0.1, Neut # (Auto) 9.3 H, Lymph # (Auto) 0.4 L, [place] # (Auto) 0.4, Eos # (Auto) 0.0, Baso # (Auto) 0.0, Total Counted 100, Neutrophils % (Manual) 91 H, Lymphocytes % (Manual) 3 L, Monocytes % (Manual) 6, Platelet Estimate Moderate decrease, RBC Morphology Normal 10/06/18 05:23: Sodium 138, Potassium 4.7, Chloride 105, Carbon Dioxide 24, Anion Gap 13.7, BUN 37 H, Creatinine 1.81 H, Estimated Creat Clear 54, Estimated GFR 37 L, Est GFR ( Amer) 45 L, Glucose 133 H D, Calcium 8.1 L, Total Bilirubin 0.7, AST 32 D, ALT 47, Alkaline Phosphatase 85, Total Protein 5.3 L, Albumin 2.6 L D, Globulin 2.7, Albumin/Globulin Ratio 1.0 L 10/06/18 05:30: POC Glucose 119 H I & O for Last 24 hours: Intake & Output 10/04/18 10/05/18 10/06/18 10/07/18 11:59 11:59 11:59 11:59 Intake Total 0 / 0 1110 / 1110 2786 / 2786 Output Total 995 / 995 Balance 0 / 0 1110 / 1110 1791 / 1791 Weight 203 lb 1 oz 213 lb 5 oz 217 lb 6 oz - *Routine Abdominal Exam Present: soft Comments: ASHVIN output thinner Progress Note: A&P (1) Cholelithiasis Status: Acute Current Visit: Yes (2) Renal insufficiency Status: Acute Current Visit: Yes (3) Obese Status: Acute Current Visit: Yes (4) Thrombocytopenia Status: Acute Current Visit: Yes (5) Parkinson disease Status: Acute Current Visit: Yes Assessment and Plan for All Diagnoses:: Second unit transfusion pending. ASHVIN output appears bilious and thinner this afternoon. Continue to monitor this closely for possible biliary issue. If this continues to become more bilious in appearance may need MRCP.
--- NOTE | 2018-10-06 12:49 | Progress Note ---
Internal Medicine - PN: Subj *Date: 10/06/18 *Time: 09:00 Interval history: doing ok but awaiting transfusion - surg note reviewed Exam Vital signs and Labs for Last 24 Hours: Temp Pulse Resp BP Pulse Ox 97.9 F 84 16 131/72 99 10/06/18 11:35 10/06/18 11:35 10/06/18 11:35 10/06/18 11:35 10/06/18 11:35 Laboratory Results - last 24 hr 10/05/18 13:04: WBC 17.4 H D, RBC 3.09 L, Hgb 9.3 L, Hct 29.9 L, MCV 96.8 H, MCH 30.1, MCHC 31.1 L, RDW 15.3, Plt Count 95 L, MPV 9.1, Neut % (Auto) 94.0 H, Lymph % (Auto) 2.9 L, [place] % (Auto) 3.0, Eos % (Auto) 0.1, Baso % (Auto) 0.1, Neut # (Auto) 16.3 H, Lymph # (Auto) 0.5 L, [place] # (Auto) 0.5, Eos # (Auto) 0.0, Baso # (Auto) 0.0 10/05/18 13:10: Blood Type Confirm O Positive 10/05/18 15:00: Urine Color Yellow, Urine Appearance Clear, Urine pH 7.0, Ur Specific [place] 1.010, Urine Protein Trace, Urine Glucose (UA) Negative, Urine Ketones Negative, Urine Blood Negative, Urine Nitrate Negative, Urine Bilirubin Negative, Urine Urobilinogen 2.0, Ur Leukocyte Esterase Negative, Urine WBC 3-5, Ur Squamous Epith Cells Occasional, Urine Bacteria 2+ A 10/05/18 16:54: POC Glucose 174 H 10/05/18 17:30: WBC 11.9 H D, RBC 2.82 L, Hgb 8.3 L D, Hct 27.3 L, MCV 96.9 H, MCH 29.6, MCHC 30.5 L, RDW 15.2, Plt Count 65 L D, MPV 11.2 H, Neut % (Auto) 95.4 H, Lymph % (Auto) 2.6 L, [place] % (Auto) 2.0, Eos % (Auto) 0.0 L, Baso % (Auto) 0.0 L, Neut # (Auto) 11.3 H, Lymph # (Auto) 0.3 L, [place] # (Auto) 0.2, Eos # (Auto) 0.0, Baso # (Auto) 0.0 10/05/18 17:30: Sodium 136, Potassium 5.3 H, Chloride 104, Carbon Dioxide 22, Anion Gap 15.3 H, BUN 36 H, Creatinine 1.95 H, Estimated Creat Clear 49, Estimated GFR 34 L, Est GFR ( Amer) 41 L, Glucose 177 H D, Calcium 8.3 L, Total Bilirubin 1.5 H, AST 49 H D, ALT 62 D, Alkaline Phosphatase 91, Total Protein 5.5 L D, Albumin 2.9 L, Globulin 2.6, Albumin/Globulin Ratio 1.1 10/05/18 17:30: Blood Type O Positive, Antibody Screen Positive, Crossmatch (AHG) See Detail 10/05/18 17:30: Antibody Identification Anti-E 10/05/18 20:38: POC Glucose 163 H 10/06/18 00:42: POC Glucose 147 H 10/06/18 05:23: WBC 10.0, RBC 2.56 L, Hgb 7.7 L*, Hct 24.9 L, MCV 97.3 H, MCH 30.1, MCHC 31.0 L, RDW 15.2, Plt Count 69 L, MPV 9.4, Neut % (Auto) 92.5 H, Lymph % (Auto) 3.9 L, [place] % (Auto) 3.5, Eos % (Auto) 0.0 L, Baso % (Auto) 0.1, Neut # (Auto) 9.3 H, Lymph # (Auto) 0.4 L, [place] # (Auto) 0.4, Eos # (Auto) 0.0, Baso # (Auto) 0.0, Total Counted 100, Neutrophils % (Manual) 91 H, Lymphocytes % (Manual) 3 L, Monocytes % (Manual) 6, Platelet Estimate Moderate decrease, RBC Morphology Normal 10/06/18 05:23: Sodium 138, Potassium 4.7, Chloride 105, Carbon Dioxide 24, Anion Gap 13.7, BUN 37 H, Creatinine 1.81 H, Estimated Creat Clear 54, Estimated GFR 37 L, Est GFR ( Amer) 45 L, Glucose 133 H D, Calcium 8.1 L, Total Bilirubin 0.7, AST 32 D, ALT 47, Alkaline Phosphatase 85, Total Protein 5.3 L, Albumin 2.6 L D, Globulin 2.7, Albumin/Globulin Ratio 1.0 L 10/06/18 05:30: POC Glucose 119 H I & O for Last 24 hours: Intake & Output 10/04/18 10/05/18 10/06/18 10/07/18 11:59 11:59 11:59 11:59 Intake Total 0 / 0 1110 / 1110 2786 / 2786 Output Total 995 / 995 Balance 0 / 0 1110 / 1110 1791 / 1791 Weight 203 lb 1 oz 213 lb 5 oz 217 lb 6 oz - Constitutional no acute distress, obese - *Routine HEENT Exam Head: Present: normocephalic Eye: Present: EOMI, PERRL ENT: Present: mucous membranes dry - *Routine Neck Exam Absent: JVD - *Routine Respiratory Exam Present: decreased breath sounds - *Routine Cardiovascular Exam Present: RRR - *Routine Abdominal Exam Present: drain Comments: s/p surg - *Routine Extremities Exam Absent: calf tenderness - *Routine Skin Exam Present: dry - *Routine Neurological Exam Present: alert, oriented X3, CN II-XII intact - Routine Psychiatric Exam Present: normal affect Assessment and Plan (1) Cholelithiasis Start date: 10/04/18 Current visit: Yes Status: Acute Qualifiers: Cholelithiasis location: gallbladder Cholecystitis presence: without cholecystitis Biliary obstruction: without biliary obstruction Qualified Code(s): K80.20 - Calculus of gallbladder without cholecystitis without obstruction Category: Medical Code(s): K80.20 - Calculus of gallbladder without cholecystitis without obstruction (2) Renal insufficiency Current visit: Yes Status: Acute Category: Medical Code(s): N28.9 - Dis order of kidney and ureter, unspecified (3) Obese Current visit: Yes Status: Acute Qualifiers: Obesity type: due to excess calories Obesity classification: adult class 1 (BMI 30 - 34.9) Serious obesity comorbidity presence: with serious comorbidity Body mass index: BMI 30.0-30.9 Qualified Code(s): E66.09 - Other obesity due to excess calories; Z68.30 - Body mass index (BMI) 30.0-30.9, adult Category: Medical Code(s): E66.9 - Obesity, unspecified (4) Thrombocytopenia Current visit: Yes Status: Acute Category: Medical Code(s): D69.6 - Thrombocytopenia, unspecified (5) Parkinson disease Current visit: Yes Status: Acute Category: Medical Code(s): G20 - Parkinson's disease (6) Acute blood loss anemia Current visit: Yes Status: Acute Category: Medical Code(s): D62 - Acute posthemorrhagic anemia
[2018-10-06 19:05] LABS: Hematocrit 30.7 % (42.0-52.0)
[2018-10-06 19:06] LABS: Hemoglobin 9.9 g/dL (14.1-18.0)
[2018-10-07 06:48] LABS: Basophils % 0.1 % (0.1-2.0); Eosinophils % 0.2 % (0.1-12.0); Hematocrit 30.6 % (42.0-52.0); Hemoglobin 9.6 g/dL (14.1-18.0); Lymphocytes # 0.8 K/mm3 (0.7-4.5); Lymphocytes % 8.8 % (10-50); Mean Corpuscular HGB Conc 31.4 g/dL (31.8-35.4); Mean Corpuscular Hemoglobin 30.2 pg (27.0-31.2); Mean Corpuscular Volume 96.2 fl (80-94); Mean Platelet Volume 9.4 fl (7.4-10.4); Monocytes # 0.3 K/mm3 (0.1-1.0); Neutrophils # 7.8 K/mm3 (1.8-7.8); Neutrophils % 87.9 % (37.0-80.0); Platelet Count 85 K/mm3 (142-424); Red Blood Count 3.18 M/mm3 (4.60-6.20); Red Cell Distribution Width 14.5 % (11.5-17.5); White Blood Count 8.9 K/mm3 (4.8-10.8)
--- NOTE | 2018-10-07 06:51 | Progress Note ---
Subjective Patient reports: feels better Exam Vital signs and Labs for Last 24 Hours: Temp Pulse Resp BP Pulse Ox 98.1 F 88 19 159/85 H 92 L 10/07/18 04:00 10/07/18 06:00 10/07/18 06:00 10/07/18 06:00 10/07/18 06:00 Laboratory Results - last 24 hr 10/05/18 17:30: Blood Type O Positive, Antibody Screen Positive, Crossmatch (AHG) See Detail 10/06/18 05:23: WBC 10.0, RBC 2.56 L, Hgb 7.7 L*, Hct 24.9 L, MCV 97.3 H, MCH 30.1, MCHC 31.0 L, RDW 15.2, Plt Count 69 L, MPV 9.4, Neut % (Auto) 92.5 H, Lymph % (Auto) 3.9 L, [place] % (Auto) 3.5, Eos % (Auto) 0.0 L, Baso % (Auto) 0.1, Neut # (Auto) 9.3 H, Lymph # (Auto) 0.4 L, [place] # (Auto) 0.4, Eos # (Auto) 0.0, Baso # (Auto) 0.0, Total Counted 100, Neutrophils % (Manual) 91 H, Lymphocytes % (Manual) 3 L, Monocytes % (Manual) 6, Platelet Estimate Moderate decrease, RBC Morphology Normal 10/06/18 11:23: POC Glucose 108 10/06/18 17:18: POC Glucose 93 10/06/18 18:53: Hgb 9.9 L D, Hct 30.7 L 10/06/18 20:49: POC Glucose 93 10/07/18 06:11: POC Glucose 75 I & O for Last 24 hours: Intake & Output 10/04/18 10/05/18 10/06/18 10/07/18 11:59 11:59 11:59 11:59 Intake Total 0 / 0 1110 / 1110 2786 / 2786 1745 / 1745 Output Total 995 / 995 1690 / 1690 Balance 0 / 0 1110 / 1110 1791 / 1791 55 / 55 Weight 203 lb 1 oz 213 lb 5 oz 217 lb 6 oz 225 lb Microbiology Reports for the Last 24 Hours: Microbiology 01/27/19 15:00 Urine,Catheterized Urine Culture - Preliminary NO GROWTH AFTER 24 HOURS - Constitutional no acute distress - *Routine Abdominal Exam Present: soft Progress Note: A&P (1) Cholelithiasis Status: Acute Current Visit: Yes (2) Renal insufficiency Status: Acute Current Visit: Yes (3) Obese Status: Acute Current Visit: Yes (4) Thrombocytopenia Status: Acute Current Visit: Yes (5) Parkinson disease Status: Acute Current Visit: Yes (6) Acute blood loss anemia Status: Acute Current Visit: Yes Assessment and Plan for All Diagnoses:: ASHVIN output more bilious. Will plan for MRCP today to evaluate biliary tree.
[2018-10-07 06:56] LABS: Albumin Level 2.6 gm/dL (3.4-5.0); Albumin/Globulin Ratio 0.8 (1.1-1.8); Anion Gap 14.3 mEq/L (5-15); Bilirubin,Total 0.9 mg/dL (0.2-1.0); Globulin 3.4 gm/dl (1.3-3.2); Potassium 4.3 mmoL/L (3.5-5.1)
[2018-10-07 07:35] LABS: Calcium 9.1 mg/dL (8.5-10.1)
[2018-10-07 08:17] LABS: Lymphocytes % 8 % (10-50); Monocytes % 3 % (2-9); Neutrophils % 87 % (42-76); Total Cells Counted 100
--- NOTE | 2018-10-07 08:48 | Progress Note ---
Internal Medicine - PN: Subj *Time: 08:30 Exam Vital signs and Labs for Last 24 Hours: Temp Pulse Resp BP Pulse Ox 98.1 F 88 19 159/85 H 92 L 10/07/18 08:00 10/07/18 06:00 10/07/18 06:00 10/07/18 06:00 10/07/18 06:00 Laboratory Results - last 24 hr 10/05/18 17:30: Blood Type O Positive, Antibody Screen Positive, Crossmatch (AHG) See Detail 10/06/18 05:23: Total Counted 100, Neutrophils % (Manual) 91 H, Lymphocytes % (Manual) 3 L, Monocytes % (Manual) 6, Platelet Estimate Moderate decrease, RBC Morphology Normal 10/06/18 11:23: POC Glucose 108 10/06/18 17:18: POC Glucose 93 10/06/18 18:53: Hgb 9.9 L D, Hct 30.7 L 10/06/18 20:49: POC Glucose 93 10/07/18 06:04: WBC 8.9, RBC 3.18 L, Hgb 9.6 L, Hct 30.6 L, MCV 96.2 H, MCH 30.2, MCHC 31.4 L, RDW 14.5, Plt Count 85 L, MPV 9.4, Neut % (Auto) 87.9 H, Lymph % (Auto) 8.8 L, [place] % (Auto) 3.0, Eos % (Auto) 0.2, Baso % (Auto) 0.1, Neut # (Auto) 7.8, Lymph # (Auto) 0.8, [place] # (Auto) 0.3, Eos # (Auto) 0.0, Baso # (Auto) 0.0, Total Counted 100, Neutrophils % (Manual) 87 H, Band Neutrophils % 2.0, Lymphocytes % (Manual) 8 L, Monocytes % (Manual) 3, Platelet Estimate Moderate decrease 10/07/18 06:04: Sodium 141, Potassium 4.3, Chloride 107, Carbon Dioxide 24, Anion Gap 14.3, BUN 32 H, Creatinine 1.41 H D, Estimated Creat Clear 71, Estimated GFR 50 L, Est GFR ( Amer) 60 D, Glucose 82, Calcium 9.1 D, Total Bilirubin 0.9, AST 14 L D, ALT 38, Alkaline Phosphatase 80, Total Protein 6.0 L, Albumin 2.6 L, Globulin 3.4 H, Albumin/Globulin Ratio 0.8 L 10/07/18 06:11: POC Glucose 75 I & O for Last 24 hours: Intake & Output 10/04/18 10/05/18 10/06/18 10/07/18 11:59 11:59 11:59 11:59 Intake Total 0 / 0 1110 / 1110 2786 / 2786 1745 / 1745 Output Total 995 / 995 1690 / 1690 Balance 0 / 0 1110 / 1110 1791 / 1791 55 / 55 Weight 203 lb 1 oz 213 lb 5 oz 217 lb 6 oz 225 lb Microbiology Reports for the Last 24 Hours: Microbiology 10/05/18 15:00 Urine,Catheterized Urine Culture - Preliminary NO GROWTH AFTER 24 HOURS - Constitutional no acute distress - *Routine HEENT Exam Head: Present: normocephalic Eye: Present: PERRL ENT: Present: mucous membranes moist - *Routine Neck Exam Present: supple. Absent: lymphadenopathy - *Routine Respiratory Exam Present: CTA bilaterally - *Routine Cardiovascular Exam Present: RRR - *Routine Abdominal Exam Present: soft, tenderness, drain Comments: ASHVIN drain with bile draining - *Routine Extremities Exam Absent: cyanosis, clubbing, edema - *Routine Skin Exam Present: warm. Absent: rash - *Routine Neurological Exam Present: alert, oriented X3 Assessment and Plan (1) Cholelithiasis Start date: 10/04/18 Current visit: Yes Status: Acute Qualifiers: Cholelithiasis location: gallbladder Cholecystitis presence: without cholecystitis Biliary obstruction: without biliary obstruction Qualified Code(s): K80.20 - Calculus of gallbladder without cholecystitis without obstruction Category: Medical Code(s): K80.20 - Calculus of gallbladder without cholecystitis without obstruction (2) Renal insufficiency Current visit: Yes Status: Acute Category: Medical Code(s): N28.9 - Disorder of kidney and ureter, unspecified (3) Obese Current visit: Yes Status: Acute Qualifiers: Obesity type: due to excess calories Obesity classification: adult class 1 (BMI 30 - 34.9) Serious obesity comorbidity presence: with serious comorbidity Body mass index: BMI 30.0-30.9 Qualified Code(s): E66.09 - Other obesity due to excess calories; Z68.30 - Body mass index (BMI) 30.0-30.9, adult Category: Medical Code(s): E66.9 - Obesity, unspecified (4) Thrombocytopenia Current visit: Yes Status: Acute Category: Medical Code(s): D69.6 - Thrombocytopenia, unspecified (5) Parkinson disease Current visit: Yes Status: Acute Category: Medical Code(s): G20 - Parkinson's disease (6) Acute blood loss anemia Current visit: Yes Status: Acute Category: Medical Code(s): D62 - Acute posthemorrhagic anemia (7) Gallbladder necrosis Current visit: Yes Status: Acute Category: Medical Code(s): K81.0 - Acute cholecystitis - Assessment and plan all Dx Assessment and Plan for all problems:: Rounded with Dr. Garcia all orders per Radha
--- NOTE | 2018-10-07 11:21 | Progress Note ---
Exam Vital signs and Labs for Last 24 Hours: Temp Pulse Resp BP Pulse Ox 98.1 F 88 16 159/85 H 94 L 10/07/18 08:00 10/07/18 06:00 10/07/18 10:47 10/07/18 06:00 10/07/18 08:51 Laboratory Results - last 24 hr 10/05/18 17:30: Blood Type O Positive, Antibody Screen Positive, Crossmatch (AHG) See Detail 10/06/18 11:23: POC Glucose 108 10/06/18 17:18: POC Glucose 93 10/06/18 18:53: Hgb 9.9 L D, Hct 30.7 L 10/06/18 20:49: POC Glucose 93 10/07/18 06:04: WBC 8.9, RBC 3.18 L, Hgb 9.6 L, Hct 30.6 L, MCV 96.2 H, MCH 30.2, MCHC 31.4 L, RDW 14.5, Plt Count 85 L, MPV 9.4, Neut % (Auto) 87.9 H, Lymph % (Auto) 8.8 L, [place] % (Auto) 3.0, Eos % (Auto) 0.2, Baso % (Auto) 0.1, Neut # (Auto) 7.8, Lymph # (Auto) 0.8, [place] # (Auto) 0.3, Eos # (Auto) 0.0, Baso # (Auto) 0.0, Total Counted 100, Neutrophils % (Manual) 87 H, Band Neutrophils % 2.0, Lymphocytes % (Manual) 8 L, Monocytes % (Manual) 3, Platelet Estimate Moderate decrease 10/07/18 06:04: Sodium 141, Potassium 4.3, Chloride 107, Carbon Dioxide 24, Anion Gap 14.3, BUN 32 H, Creatinine 1.41 H D, Estimated Creat Clear 71, Estimated GFR 50 L, Est GFR ( Amer) 60 D, Glucose 82, Calcium 9.1 D, Total Bilirubin 0.9, AST 14 L D, ALT 38, Alkaline Phosphatase 80, Total Protein 6.0 L, Albumin 2.6 L, Globulin 3.4 H, Albumin/Globulin Ratio 0.8 L 10/07/18 06:11: POC Glucose 75 I & O for Last 24 hours: Intake & Output 0110/05/18 10/06/18 10/07/18 23:59 23:59 23:59 23:59 Intake Total 1110 / 1110 1750 / 1750 1943 / 1943 838 / 838 Output Total 360 / 360 1605 / 1605 720 / 720 Balance 1110 / 1110 1390 / 1390 338 / 338 118 / 118 Weight 92.108 kg 96.757 kg 98.6 kg 102.058 kg Microbiology Reports for the Last 24 Hours: Microbiology 10/05/18 15:00 Urine,Catheterized Urine Culture - Preliminary NO GROWTH AFTER 24 HOURS Assessment and Plan (1) Cholelithiasis Start date: 10/04/18 Current visit: Yes Status: Acute Qualifiers: Cholelithiasis location: gallbladder Cholecystitis presence: without cholecystitis Biliary obstruction: without biliary obstruction Qualified Code(s): K80.20 - Calculus of gallbladder without cholecystitis without obstruction Category: Medical Code(s): K80.20 - Calculus of gallbladder without cholecystitis without obstruction (2) Renal insufficiency Current visit: Yes Status: Acute Category: Medical Code(s): N28.9 - Disorder of kidney and ureter, unspecified (3) Obese Current visit: Yes Status: Acute Qualifiers: Obesity type: due to excess calories Obesity classification: adult class 1 (BMI 30 - 34.9) Serious obesity comorbidity presence: with serious comorbidity Body mass index: BMI 30.0-30.9 Qualified Code(s): E66.09 - Other obesity due to excess calories; Z68.30 - Body mass index (BMI) 30.0-30.9, adult Category: Medical Code(s): E66.9 - Obesity, unspecified (4) Thrombocytopenia Current visit: Yes Status: Acute Category: Medical Code(s): D69.6 - Thrombocytopenia, unspecified (5) Parkinson disease Current visit: Yes Status: Acute Category: Medical Code(s): G20 - Parkinson's disease (6) Acute blood loss anemia Current visit: Yes Status: Acute Category: Medical Code(s): D62 - Acute posthemorrhagic anemia (7) Gallbladder necrosis Current visit: Yes Status: Acute Category: Medical Code(s): K81.0 - Acute cholecystitis The patient's infection will respond to the chosen ABx?: Yes Is the patient receiving the right drug, dose, and route?: Yes Could a more targeted ABx be ordered?: No (NO GROWTH IN CULTURE OF YET)
[2018-10-08 05:47] LABS: Basophils % 0.1 % (0.1-2.0); Eosinophils # 0.1 K/mm3 (0.0-0.4); Eosinophils % 0.7 % (0.1-12.0); Hematocrit 33.9 % (42.0-52.0); Lymphocytes # 0.7 K/mm3 (0.7-4.5); Lymphocytes % 8.1 % (10-50); Mean Corpuscular HGB Conc 31.6 g/dL (31.8-35.4); Mean Corpuscular Hemoglobin 29.9 pg (27.0-31.2); Mean Corpuscular Volume 94.7 fl (80-94); Mean Platelet Volume 8.8 fl (7.4-10.4); Monocytes # 0.4 K/mm3 (0.1-1.0); Monocytes % 4.6 % (1.7-9.3); Neutrophils # 6.9 K/mm3 (1.8-7.8); Neutrophils % 86.6 % (37.0-80.0); Platelet Count 115 K/mm3 (142-424); Red Blood Count 3.58 M/mm3 (4.60-6.20); Red Cell Distribution Width 14.5 % (11.5-17.5)
[2018-10-08 05:55] LABS: Hemoglobin 10.7 g/dL (14.1-18.0)
[2018-10-08 05:57] LABS: Anion Gap 13.1 mEq/L (5-15); Calcium 8.9 mg/dL (8.5-10.1); Potassium 4.1 mmoL/L (3.5-5.1)
[2018-10-08 06:17] LABS: Lymphocytes % 9 % (10-50); Monocytes % 1 % (2-9); Neutrophils % 90 % (42-76); Total Cells Counted 100
[2018-10-08 06:18] LABS: Anisocytosis 1+; Ovalocytes 1+
--- NOTE | 2018-10-08 07:39 | Progress Note ---
Subjective Narrative: Patient states he is having some indigestion since starting full liquids. Passing gas. No nausea. HIDA yesterday reveals no leak. Exam Vital signs and Labs for Last 24 Hours: Temp Pulse Resp BP Pulse Ox 97.3 F L 89 15 165/90 H 95 10/08/18 04:00 10/08/18 04:00 10/08/18 04:00 10/08/18 04:00 10/08/18 04:00 Laboratory Results - last 24 hr 10/07/18 06:04: Total Counted 100, Neutrophils % (Manual) 87 H, Band Neutrophils % 2.0, Lymphocytes % (Manual) 8 L, Monocytes % (Manual) 3, Platelet Estimate Moderate decrease 10/07/18 11:38: POC Glucose 83 10/07/18 17:19: POC Glucose 98 10/07/18 21:27: POC Glucose 124 H 10/08/18 05:39: WBC 8.0, RBC 3.58 L, Hgb 10.7 L D, Hct 33.9 L, MCV 94.7 H, MCH 29.9, MCHC 31.6 L, RDW 14.5, Plt Count 115 L D, MPV 8.8, Neut % (Auto) 86.6 H, Lymph % (Auto) 8.1 L, [place] % (Auto) 4.6, Eos % (Auto) 0.7, Baso % (Auto) 0.1, Neut # (Auto) 6.9, Lymph # (Auto) 0.7, [place] # (Auto) 0.4, Eos # (Auto) 0.1, Baso # (Auto) 0.0, Total Counted 100, Neutrophils % (Manual) 90 H, Lymphocytes % (Manual) 9 L, Monocytes % (Manual) 1 L, Platelet Estimate Normal, RBC Morphology Not Reportable, Anisocytosis 1+, Ovalocytes 1+ 10/08/18 05:39: Sodium 140, Potassium 4.1, Chloride 106, Carbon Dioxide 25, Anion Gap 13.1, BUN 28 H, Creatinine 1.43 H, Estimated Creat Clear 70, Estimated GFR 49 L, Est GFR ( Amer) 59, Glucose 130 H D, Calcium 8.9 10/08/18 06:22: POC Glucose 117 H I & O for Last 24 hours: Intake & Output 10/05/18 10/06/18 10/07/18 01/30/19 11:59 11:59 11:59 11:59 Intake Total 1110 / 1110 2786 / 2786 1895 / 1895 650 / 650 Output Total 995 / 995 1690 / 1690 240 / 240 Balance 1110 / 1110 1791 / 1791 205 / 205 410 / 410 Weight 213 lb 5 oz 217 lb 6 oz 225 lb 225 lb 0.343 oz Microbiology Reports for the Last 24 Hours: Microbiology 10/05/18 15:00 Urine,Catheterized Urine Culture - Final NO GROWTH AFTER 48 HOURS - *Routine Abdominal Exam Present: soft, drain Comments: Incision clean. ASHVIN output bilious. Progress Note: A&P (1) Cholelithiasis Status: Acute Current Visit: Yes (2) Renal insufficiency Status: Acute Current Visit: Yes (3) Obese Status: Acute Current Visit: Yes (4) Thrombocytopenia Status: Acute Current Visit: Yes (5) Parkinson disease Status: Acute Current Visit: Yes (6) Acute blood loss anemia Status: Acute Current Visit: Yes (7) Gallbladder necrosis Status: Acute Current Visit: Yes Assessment and Plan for All Diagnoses:: Limit to full liquids due to "indigestion". Monitor drain output. If remains bilious may need ERCP.
[2018-10-08 07:56] LABS: Albumin Level 2.7 gm/dL (3.4-5.0); Bilirubin,Direct 0.5 mg/dL (0.0-0.2); Bilirubin,Indirect 0.5 mg/dL (0.0-0.9); Total Protein,Serum 6.2 gm/dL (6.4-8.2)
--- NOTE | 2018-10-08 12:36 | Progress Note ---
Internal Medicine - PN: Subj *Date: 10/08/18 *Time: 08:30 Interval history: doing better but still drainage in evelio drain Exam Vital signs and Labs for Last 24 Hours: Temp Pulse Resp BP Pulse Ox 97.8 F 95 H 16 154/88 H 97 10/08/18 07:55 10/08/18 07:55 10/08/18 07:58 10/08/18 07:55 10/08/18 07:55 Laboratory Results - last 24 hr 10/07/18 17:19: POC Glucose 98 10/07/18 21:27: POC Glucose 124 H 10/08/18 05:39: WBC 8.0, RBC 3.58 L, Hgb 10.7 L D, Hct 33.9 L, MCV 94.7 H, MCH 29.9, MCHC 31.6 L, RDW 14.5, Plt Count 115 L D, MPV 8.8, Neut % (Auto) 86.6 H, Lymph % (Auto) 8.1 L, [place] % (Auto) 4.6, Eos % (Auto) 0.7, Baso % (Auto) 0.1, Neut # (Auto) 6.9, Lymph # (Auto) 0.7, [place] # (Auto) 0.4, Eos # (Auto) 0.1, Baso # (Auto) 0.0, Total Counted 100, Neutrophils % (Manual) 90 H, Lymphocytes % (Manual) 9 L, Monocytes % (Manual) 1 L, Platelet Estimate Normal, RBC Morphology Not Reportable, Anisocytosis 1+, Ovalocytes 1+ 10/08/18 05:39: Sodium 140, Potassium 4.1, Chloride 106, Carbon Dioxide 25, Anion Gap 13.1, BUN 28 H, Creatinine 1.43 H, Estimated Creat Clear 70, Estimated GFR 49 L, Est GFR ( Amer) 59, Glucose 130 H D, Calcium 8.9 10/08/18 05:39: Total Bilirubin 1.0, Direct Bilirubin 0.5 H, Indirect Bilirubin 0.5, AST 14 L, ALT 32, Alkaline Phosphatase 94, Total Protein 6.2 L, Albumin 2.7 L 10/08/18 06:22: POC Glucose 117 H 10/08/18 11:07: POC Glucose 101 I & O for Last 24 hours: Intake & Output 01/10/07/18 10/08/18 10/09/18 11:59 11:59 11:59 11:59 Intake Total 2786 / 2786 1895 / 1895 1250 / 1250 Output Total 995 / 995 1690 / 1690 300 / 300 Balance 1791 / 1791 205 / 205 950 / 950 Weight 217 lb 6 oz 225 lb 225 lb 0.343 oz Microbiology Reports for the Last 24 Hours: Microbiology 10/05/18 15:00 Urine,Catheterized Urine Culture - Final NO GROWTH AFTER 48 HOURS - Constitutional no acute distress, obese - *Routine HEENT Exam Head: Present: normocephalic Eye: Present: EOMI, PERRL. Absent: conjunctival icterus ENT: Present: mucous membranes dry - *Routine Neck Exam Absent: JVD - *Routine Respiratory Exam Present: decreased breath sounds - *Routine Cardiovascular Exam Present: RRR, murmur - *Routine Abdominal Exam Present: soft Comments: drainage noted - *Routine Extremities Exam Absent: calf tenderness - *Routine Skin Exam Present: intact - *Routine Neurological Exam Present: alert, CN II-XII intact - Routine Psychiatric Exam Present: normal affect Assessment and Plan (1) Cholelithiasis Start date: 10/04/18 Current visit: Yes Status: Acute Qualifiers: Cholelithiasis location: gallbladder Cholecystitis presence: without cholecystitis Biliary obstruction: without biliary obstruction Qualified Code(s): K80.20 - Calculus of gallbladder without cholecystitis without obstruction Category: Medical Code(s): K80.20 - Calculus of gallbladder without cholecystitis without obstruction (2) Renal insufficiency Current visit: Yes Status: Acute Category: Medical Code(s): N28.9 - Disorder of kidney and ureter, unspecified (3) Obese Current visit: Yes Status: Acute Qualifiers: Obesity type: due to excess calories Obesity classification: adult class 1 (BMI 30 - 34.9) Serious obesity comorbidity presence: with serious comorbidity Body mass index: BMI 30.0-30.9 Qualified Code(s): E66.09 - Other obesity due to excess calories; Z68.30 - Body mass index (BMI) 30.0-30.9, adult Category: Medical Code(s): E66.9 - Obesity, unspecified (4) Thrombocytopenia Current visit: Yes Status: Acute Category: Medical Code(s): D69.6 - Thrombocytopenia, unspecified (5) Parkinson disease Current visit: Yes Status: Acute Category: Medical Code(s): G20 - Parkinson's disease (6) Acute blood loss anemia Current visit: Yes Status: Acute Category: Medical Code(s): D62 - Acute posthemorrhagic anemia (7) Gallbladder necrosis Current visit: Yes Status: Acute Category: Medical Code(s): K81.0 - Acute cholecystitis
[2018-10-09 06:15] LABS: Basophils % 0.1 % (0.1-2.0); Eosinophils % 0.5 % (0.1-12.0); Hematocrit 32.5 % (42.0-52.0); Hemoglobin 10.2 g/dL (14.1-18.0); Lymphocytes # 0.6 K/mm3 (0.7-4.5); Lymphocytes % 10.5 % (10-50); Mean Corpuscular HGB Conc 31.3 g/dL (31.8-35.4); Mean Corpuscular Hemoglobin 29.9 pg (27.0-31.2); Mean Corpuscular Volume 95.3 fl (80-94); Mean Platelet Volume 7.9 fl (7.4-10.4); Monocytes # 0.3 K/mm3 (0.1-1.0); Monocytes % 5.3 % (1.7-9.3); Neutrophils # 4.9 K/mm3 (1.8-7.8); Neutrophils % 83.5 % (37.0-80.0); Platelet Count 125 K/mm3 (142-424); Red Blood Count 3.41 M/mm3 (4.60-6.20); Red Cell Distribution Width 14.7 % (11.5-17.5); White Blood Count 5.9 K/mm3 (4.8-10.8)
[2018-10-09 06:27] LABS: Calcium 8.8 mg/dL (8.5-10.1)
--- NOTE | 2018-10-09 06:51 | Progress Note ---
Subjective Patient reports: no new complaints Exam Vital signs and Labs for Last 24 Hours: Temp Pulse Resp BP Pulse Ox 98.0 F 92 H 17 159/80 H 96 10/09/18 04:00 10/09/18 04:00 10/09/18 04:00 10/09/18 04:00 10/09/18 04:00 Laboratory Results - last 24 hr 10/08/18 05:39: Total Bilirubin 1.0, Direct Bilirubin 0.5 H, Indirect Bilirubin 0.5, AST 14 L, ALT 32, Alkaline Phosphatase 94, Total Protein 6.2 L, Albumin 2.7 L 10/08/18 11:07: POC Glucose 101 10/08/18 16:53: POC Glucose 109 10/08/18 20:59: POC Glucose 115 H 10/09/18 05:32: WBC 5.9 D, RBC 3.41 L, Hgb 10.2 L, Hct 32.5 L, MCV 95.3 H, MCH 29.9, MCHC 31.3 L, RDW 14.7, Plt Count 125 L, MPV 7.9, Neut % (Auto) 83.5 H, Lymph % (Auto) 10.5, [place] % (Auto) 5.3, Eos % (Auto) 0.5, Baso % (Auto) 0.1, Neut # (Auto) 4.9, Lymph # (Auto) 0.6 L, [place] # (Auto) 0.3, Eos # (Auto) 0.0, Baso # (Auto) 0.0 10/09/18 05:32: Sodium 140, Potassium 4.0, Chloride 105, Carbon Dioxide 23, Anion Gap 16.0 H, BUN 21 H, Creatinine 1.34 H, Estimated Creat Clear 75, Estimated GFR 53 L, Est GFR ( Amer) 64, Glucose 122 H, Calcium 8.8 10/09/18 05:49: POC Glucose 117 H I & O for Last 24 hours: Intake & Output 10/06/18 10/07/18 10/08/18 10/09/18 11:59 11:59 11:59 11:59 Intake Total 2786 / 2786 1895 / 1895 1400 / 1400 2648 / 2648 Output Total 995 / 995 1690 / 1690 300 / 300 70 / 70 Balance 1791 / 1791 205 / 205 1100 / 1100 2578 / 2578 Weight 217 lb 6 oz 225 lb 225 lb 0.343 oz 225 lb 0.343 oz - Constitutional no acute distress - *Routine Abdominal Exam Comments: continued bilious drainage from ASHVIN and "around" ASHVIN Progress Note: A&P (1) Cholelithiasis Status: Acute Current Visit: Yes (2) Renal insufficiency Status: Acute Current Visit: Yes (3) Obese Status: Acute Current Visit: Yes (4) Thrombocytopenia Status: Acute Current Visit: Yes (5) Parkinson disease Status: Acute Current Visit: Yes (6) Acute blood loss anemia Status: Acute Current Visit: Yes (7) Gallbladder necrosis Status: Acute Assessment and plan: stable s/p cholecystectomy. likely bile leak. NPO p MN for likely ERCP (Dr. Sanchez) tomorrow Current Visit: Yes
--- NOTE | 2018-10-09 09:07 | Progress Note ---
Internal Medicine - PN: Subj *Date: 10/09/18 *Time: 08:30 Interval history: Still having copious amount of drainage in ASHVIN drain. Leaking around insertion site. Exam Vital signs and Labs for Last 24 Hours: Temp Pulse Resp BP Pulse Ox 98.0 F 90 15 153/83 H 98 10/09/18 08:00 10/09/18 08:00 10/09/18 08:00 10/09/18 08:00 10/09/18 08:00 Laboratory Results - last 24 hr 10/08/18 11:07: POC Glucose 101 10/08/18 16:53: POC Glucose 109 10/08/18 20:59: POC Glucose 115 H 10/09/18 05:32: WBC 5.9 D, RBC 3.41 L, Hgb 10.2 L, Hct 32.5 L, MCV 95.3 H, MCH 29.9, MCHC 31.3 L, RDW 14.7, Plt Count 125 L, MPV 7.9, Neut % (Auto) 83.5 H, Lymph % (Auto) 10.5, [place] % (Auto) 5.3, Eos % (Auto) 0.5, Baso % (Auto) 0.1, Neut # (Auto) 4.9, Lymph # (Auto) 0.6 L, [place] # (Auto) 0.3, Eos # (Auto) 0.0, Baso # (Auto) 0.0 10/09/18 05:32: Sodium 140, Potassium 4.0, Chloride 105, Carbon Dioxide 23, Anion Gap 16.0 H, BUN 21 H, Creatinine 1.34 H, Estimated Creat Clear 75, Estimated GFR 53 L, Est GFR ( Amer) 64, Glucose 122 H, Calcium 8.8 10/09/18 05:49: POC Glucose 117 H I & O for Last 24 hours: Intake & Output 10/06/18 10/07/18 10/08/18 10/09/18 11:59 11:59 11:59 11:59 Intake Total 2786 / 2786 1895 / 1895 1400 / 1400 3188 / 3188 Output Total 995 / 995 1690 / 1690 300 / 300 70 / 70 Balance 1791 / 1791 205 / 205 1100 / 1100 3118 / 3118 Weight 217 lb 6 oz 225 lb 225 lb 0.343 oz 225 lb 0.343 oz - Constitutional no acute distress - *Routine HEENT Exam Head: Present: normocephalic Eye: Present: PERRL ENT: Present: mucous membranes moist - *Routine Neck Exam Present: supple. Absent: lymphadenopathy - *Routine Respiratory Exam Present: CTA bilaterally - *Routine Cardiovascular Exam Present: RRR - *Routine Abdominal Exam Present: soft, normoactive bowel sounds, tenderness Comments: The drain at right quadrant - *Routine Extremities Exam Absent: cyanosis, clubbing, edema - *Routine Skin Exam Present: warm. Absent: rash - *Routine Neurological Exam Present: alert, oriented X3 - Routine Psychiatric Exam Present: normal affect Assessment and Plan (1) Cholelithiasis Start date: 10/04/18 Current visit: Yes Status: Acute Qualifiers: Cholelithiasis location: gallbladder Cholecystitis presence: without cholecystitis Biliary obstruction: without biliary obstruction Qualified Code(s): K80.20 - Calculus of gallbladder without cholecystitis without obstruction Category: Medical Code(s): K80.20 - Calculus of gallbladder without cholecystitis without obstruction (2) Renal insufficiency Current visit: Yes Status: Acute Category: Medical Code(s): N28.9 - Disorder of kidney and ureter, unspecified (3) Obese Current visit: Yes Status: Acute Qualifiers: Obesity type: due to excess calories Obesity classification: adult class 1 (BMI 30 - 34.9) Serious obesity comorbidity presence: with serious comorbidity Body mass index: BMI 30.0-30.9 Qualified Code(s): E66.09 - Other obesity due to excess calories; Z68.30 - Body mass index (BMI) 30.0-30.9, adult Category: Medical Code(s): E66.9 - Obesity, unspecified (4) Thrombocytopenia Current visit: Yes Status: Acute Category: Medical Code(s): D69.6 - Thrombocytopenia, unspecified (5) Parkinson disease Current visit: Yes Status: Acute Category: Medical Code(s): G20 - Parkinson's disease (6) Acute blood loss anemia Current visit: Yes Status: Acute Category: Medical Code(s): D62 - Acute p osthemorrhagic anemia (7) Gallbladder necrosis Current visit: Yes Status: Acute Category: Medical Code(s): K81.0 - Acute cholecystitis - Assessment and plan all Dx Assessment and Plan for all problems:: Bruno will round later today, all orders per bruno
--- NOTE | 2018-10-10 06:35 | Progress Note ---
Subjective Patient reports: other (resting. awaiting ERCP.) Exam Vital signs and Labs for Last 24 Hours: Temp Pulse Resp BP Pulse Ox 98.9 F 109 H 18 169/62 H 96 10/10/18 04:00 10/10/18 04:00 10/10/18 04:00 10/10/18 04:00 10/10/18 04:00 Laboratory Results - last 24 hr 10/05/18 17:30: Blood Type O Positive, Antibody Screen Positive, Crossmatch (AHG) See Detail 10/09/18 11:04: POC Glucose 112 H 10/09/18 17:56: POC Glucose 84 10/09/18 20:32: POC Glucose 75 I & O for Last 24 hours: Intake & Output 10/07/18 10/08/18 10/09/18 10/10/18 11:59 11:59 11:59 11:59 Intake Total 1895 / 1895 1400 / 1400 3338 / 3338 1608 / 1608 Output Total 1690 / 1690 300 / 300 70 / 70 605 / 605 Balance 205 / 205 1100 / 1100 3268 / 3268 1003 / 1003 Weight 225 lb 225 lb 0.343 oz 225 lb 0.343 oz - Constitutional no acute distress - *Routine Respiratory Exam Absent: respiratory distress - *Routine Cardiovascular Exam Present: RRR Progress Note: A&P (1) Cholelithiasis Status: Acute Current Visit: Yes (2) Renal insufficiency Status: Acute Current Visit: Yes (3) Obese Status: Acute Current Visit: Yes (4) Thrombocytopenia Status: Acute Current Visit: Yes (5) Parkinson disease Status: Acute Current Visit: Yes (6) Acute blood loss anemia Status: Acute Current Visit: Yes (7) Gallbladder necrosis Status: Acute Assessment and plan: stable s/p cholecystectomy. likely bile leak (although negative HIDA). Likely ERCP today (as per GI) Current Visit: Yes
[2018-10-10 07:03] LABS: Basophils % 0.1 % (0.1-2.0); Eosinophils # 0.1 K/mm3 (0.0-0.4); Eosinophils % 1.8 % (0.1-12.0); Hematocrit 30.8 % (42.0-52.0); Hemoglobin 9.6 g/dL (14.1-18.0); Lymphocytes # 0.7 K/mm3 (0.7-4.5); Lymphocytes % 12.5 % (10-50); Mean Corpuscular HGB Conc 31.1 g/dL (31.8-35.4); Mean Corpuscular Hemoglobin 29.6 pg (27.0-31.2); Mean Corpuscular Volume 95.3 fl (80-94); Mean Platelet Volume 8.4 fl (7.4-10.4); Monocytes # 0.3 K/mm3 (0.1-1.0); Monocytes % 5.3 % (1.7-9.3); Neutrophils # 4.8 K/mm3 (1.8-7.8); Neutrophils % 80.4 % (37.0-80.0); Platelet Count 130 K/mm3 (142-424); Red Blood Count 3.23 M/mm3 (4.60-6.20); Red Cell Distribution Width 14.4 % (11.5-17.5); White Blood Count 5.9 K/mm3 (4.8-10.8)
[2018-10-10 07:11] LABS: Albumin Level 2.4 gm/dL (3.4-5.0); Albumin/Globulin Ratio 0.8 (1.1-1.8); Anion Gap 15.8 mEq/L (5-15); Bilirubin,Total 0.9 mg/dL (0.2-1.0); Calcium 8.6 mg/dL (8.5-10.1); Globulin 3.2 gm/dl (1.3-3.2); Potassium 3.8 mmoL/L (3.5-5.1); Total Protein,Serum 5.6 gm/dL (6.4-8.2)
--- NOTE | 2018-10-10 08:57 | Progress Note ---
Internal Medicine - PN: Subj *Date: 10/10/18 *Time: 08:55 Exam Vital signs and Labs for Last 24 Hours: Temp Pulse Resp BP Pulse Ox 98.9 F 109 H 18 169/62 H 96 10/10/18 04:00 10/10/18 04:00 10/10/18 04:00 10/10/18 04:00 10/10/18 04:00 Laboratory Results - last 24 hr 10/05/18 17:30: Blood Type O Positive, Antibody Screen Positive, Crossmatch (AHG) See Detail 10/09/18 11:04: POC Glucose 112 H 10/09/18 17:56: POC Glucose 84 10/09/18 20:32: POC Glucose 75 10/10/18 05:29: WBC 5.9, RBC 3.23 L, Hgb 9.6 L, Hct 30.8 L, MCV 95.3 H, MCH 29.6, MCHC 31.1 L, RDW 14.4, Plt Count 130 L, MPV 8.4, Neut % (Auto) 80.4 H, Lymph % (Auto) 12.5, [place] % (Auto) 5.3, Eos % (Auto) 1.8, Baso % (Auto) 0.1, Neut # (Auto) 4.8, Lymph # (Auto) 0.7, [place] # (Auto) 0.3, Eos # (Auto) 0.1, Baso # (Auto) 0.0 10/10/18 05:29: Sodium 140, Potassium 3.8, Chloride 106, Carbon Dioxide 22, Anion Gap 15.8 H, BUN 18, Creatinine 1.27, Estimated Creat Clear 79, Estimated GFR 56 L, Est GFR ( Amer) 68, Glucose 100, Calcium 8.6, Total Bilirubin 0.9, AST 12 L, ALT 23 D, Alkaline Phosphatase 102, Total Protein 5.6 L, Albumin 2.4 L, Globulin 3.2, Albumin/Globulin Ratio 0.8 L 10/10/18 05:29: POC Glucose 95 I & O for Last 24 hours: Intake & Output 10/07/18 10/08/18 10/09/18 10/10/18 11:59 11:59 11:59 11:59 Intake Total 1895 / 1895 1400 / 1400 3338 / 3338 1608 / 1608 Output Total 1690 / 1690 300 / 300 70 / 70 605 / 605 Balance 205 / 205 1100 / 1100 3268 / 3268 1003 / 1003 Weight 225 lb 225 lb 0.343 oz 225 lb 0.343 oz - Constitutional no acute distress - *Routine HEENT Exam Head: Present: normocephalic Eye: Present: PERRL ENT: Present: mucous membranes moist - *Routine Neck Exam Present: supple. Absent: lymphadenopathy - *Routine Respiratory Exam Present: CTA bilaterally - *Routine Cardiovascular Exam Present: RRR - *Routine Abdominal Exam Present: soft, normoactive bowel sounds, tenderness, drain Comments: ASHVIN draining at right upper quad full of bile draining around insertion site - *Routine Extremities Exam Absent: cyanosis, clubbing, edema - *Routine Skin Exam Present: warm. Absent: rash - *Routine Neurological Exam Present: alert, oriented X3 - Routine Psychiatric Exam Present: normal affect Assessment and Plan (1) Cholelithiasis Start date: 10/04/18 Current visit: Yes Status: Acute Qualifiers: Cholelithiasis location: gallbladder Cholecystitis presence: without cholecystitis Biliary obstruction: without biliary obstruction Qualified Code(s): K80.20 - Calculus of gallbladder without cholecystitis without obstruction Category: Medical Code(s): K80.20 - Calculus of gallbladder without cholecystitis without obstruction (2) Renal insufficiency Current visit: Yes Status: Acute Category: Medical Code(s): N28.9 - Disorder of kidney and ureter, unspecified (3) Obese Current visit: Yes Status: Acute Qualifiers: Obesity type: due to excess calories Obesity classification: adult class 1 (BMI 30 - 34.9) Serious obesity comorbidity presence: with serious comorbidity Body mass index: BMI 30.0-30.9 Qualified Code(s): E66.09 - Other obesity due to excess calories; Z68.30 - Body mass index (BMI) 30.0-30.9, adult Category: Medical Code(s): E66.9 - Obesity, unspecified (4) Thrombocytopenia Current visit: Yes Status: Acute Category: Medical Code(s): D69.6 - Thrombocytopenia, unspecified (5) Parkinson disease Current visit: Yes Status: Acute Category: Medical Code(s): G20 - Parkinson's disease (6) Acute blood loss anemia Current visit: Yes Status: Acute Category: Medical Code(s): D62 - Acute posthemorrhagic anemia (7) Gallbladder necrosis Current visit: Yes Status: Acute Category: Medical Code(s): K81.0 - Acute cholecystitis - Assessment and plan all Dx Assessment and Plan for all problems:: Radha will round later today all orders per Radha ERCP today Out of bed in room
--- NOTE | 2018-10-10 14:06 | Procedure Note ---
[facility] Procedure Note Procedure Note:: ERCP procedure Report: Endoscopic retrograde cholangiopancreatography with biliary sphincterotomy and balloon extraction Endoscopist: Timmy Sanchez II, MD Referring Physician: uHng Rodarte MD/Dario Carl MD Date of Procedure: October 10, 2018 Equipment: Olympus 180 side viewing endoscope duodenoscope Sedation: MAC sedation Indication: Mr. Maravilla is a 68-year-old gentleman with symptomatic gallstones who underwent laparoscopic cholecystectomy on October 05, 2018 (Dr. Dario Carl). The patient's prior CAT scan and ultrasound did not show evidence of acute cholecystitis (no gallbladder wall thickening or pericholecystic fluid) but the patient did have moderate to marked acute colitis at the time of surgery and it was difficult. Subsequent to surgery there has been excessive biliary drainage from the ASHVIN drains suggesting a possible biliary leak. The patient's pain is gradually improved. A HIDA scan did not show evidence of biliary leakage. I did speak with Dr. Hung Rodarte 2 days ago and agreed to ERCP to assess further. The patient's alkaline phosphatase is 102 with total bilirubin 0.9 and ALT 23. He is anemic with hemoglobin 9.6 and hematocrit 30.8 but no leukocytosis. Procedure: Prior to the procedure, a history and physical exam was performed, and patient's medications and allergies were reviewed. The risks, benefits and alternatives of the sedation and procedure were discussed with the patient. All questions were answered and informed consent was obtained. The patient was brought to the fluoroscopic radiology room. Patient identification and proposed procedure were verified by the physician and the nurse. The patient was placed in a swimmer's position between left lateral decubitus and prone position and the scope was passed under direct vision. Throughout the procedure, the patient's blood pressure, pulse, and oxygen saturations were monitored continuously. The ERCP was accomplished without difficulty. The patient tolerated the procedure well. Findings: The side-viewing duodenal scope was passed directly into the upper esophagus and advanced to the second portion of the duodenum. There was mild peptic gastritis and peptic duodenitis. The ampulla was well visualized. Both the pancreatic duct and common bile duct were cannulated. The pancreatogram revealed a normal caliber pancreatic duct of 2-3 mm with normal filling of the head and body of the gland. Full filling of the tail was not performed. There was an angulated genu but no ductular ectasias. The common bile duct was cannulated and the cholangiogram did show a mildly dilated common bile duct to 9 or 10 mm (normal 6 mm or less). There was delayed drainage of the bile and contrast and a moderate amount of contrast was placed into the biliary system but no defined leak was identified and the cholecystectomy clips were viewed carefully and there was no appearance of extravasation of contrast. However, there was poor drainage of the biliary system. A biliary sphincterotomy was performed. There was some bile and black sludge. A 9-12 mm sweeping balloon was placed at the hilum and swept through the biliary system and there were at least 2 small black pigmented bile duct stones (2-3 mm choledocholithiasis) and black sludge but no purulence. There was excellent decompression of the biliary system. A second sweep yielded no additional stones or debris. The intrahepatic biliary system appeared normal. Impression: 1. Black pigmented small CBD stones/sludge (choledocholithiasis) with mildly dilated biliary system status post sphincterotomy and balloon clearance/decompression 2. No bile duct leak identified Plan: The patient should have clinical improvement with sphincterotomy alone if there is a small leak not identified. I do feel the leak is still a possibility given the fact that there was dilated biliary system and very poor dec ompression/clearance which should improve after sphincterotomy. I will discussed the findings with the patient, family and physicians.
--- NOTE | 2018-10-10 14:13 | Progress Note ---
[facility] Anesthesia Checklist - Patient Identification Patient Identification: Arm Band, Verbal (Name & ) - Structural Data Admitted From: Inpatient Planned Operative Procedure/s: ERCP Consent for Planned Operative Procedure(s) Verified: Yes Verified Documents: Surgical Consent, History and Physical - NPO Status Verified Time NPO: 00:00 - Chart Verification Results Verified: CBC, BMP - Additional verifications Anesthesia Reactions: No - Airway Assessment C-Spine Mobility Assessed: Yes TMJ Mobility Assessed: Yes Dentition: Dentures-good fit (Upper) - Neurological Assessment Level of Consciousness: Awake Hx Seizures: No Numbness or tingling in extremities: No - Anesthesia Plan Anesthesia Risk discussed: Yes Anesthesia Plan: Verified ASA Class: III Anesthesia Type: MAC [facility] History I have reviewed the patient's past medical history: Yes Medical History: Reports:: Cancer (left kidney. removed on 2009), Cerebrovascular Accident, Diabetes Mellitus Type 2, Hiatal Hernia, Hyperlipidemia, Hypertension Denies:: Diabetes Mellitus Type 1, MRSA, Seizures Have you ever received a pneumonia vaccine?: No Have you received a flu vaccine this season?: No Other Medical History: Reports: Cataracts (removed on left side). Denies: Blood Transfusion Reaction Comment:: Parkinson's Other Surgeries: Yes: Appendectomy, Cancer Surgery (left kidney removal), Cardiac Catheterization, Colonoscopy, Hernia Repair, Other Amputation: No Fractures: No - *Social History Educational Level: Attended College Smoking Status: Unknown if ever smoked Tobacco Type: cigarettes #Yrs smoked (if former smoker): 30 Alcohol Intake: current Alcohol Intake Frequency:: holidays/special occasions only Substance Use Type: denies use Occupational Status: retired Housing: house Household Members: spouse, family Travel in the last 8 weeks: None - Psychiatric History Expresses thoughts of harming self/others: None Suicide Plan Description: No Plan *Family Hx:: No significant family history
[2018-10-11 06:29] LABS: Basophils % 0.1 % (0.1-2.0); Eosinophils # 0.1 K/mm3 (0.0-0.4); Eosinophils % 1.1 % (0.1-12.0); Hematocrit 29.3 % (42.0-52.0); Hemoglobin 9.5 g/dL (14.1-18.0); Lymphocytes # 0.6 K/mm3 (0.7-4.5); Lymphocytes % 7.7 % (10-50); Mean Corpuscular HGB Conc 32.2 g/dL (31.8-35.4); Mean Corpuscular Hemoglobin 30.3 pg (27.0-31.2); Mean Corpuscular Volume 93.9 fl (80-94); Mean Platelet Volume 7.6 fl (7.4-10.4); Monocytes # 0.5 K/mm3 (0.1-1.0); Monocytes % 6.3 % (1.7-9.3); Neutrophils # 6.3 K/mm3 (1.8-7.8); Neutrophils % 84.9 % (37.0-80.0); Platelet Count 138 K/mm3 (142-424); Red Blood Count 3.13 M/mm3 (4.60-6.20); Red Cell Distribution Width 14.7 % (11.5-17.5); White Blood Count 7.5 K/mm3 (4.8-10.8)
[2018-10-11 07:00] LABS: Anion Gap 18.2 mEq/L (5-15); Calcium 8.4 mg/dL (8.5-10.1); Potassium 4.2 mmoL/L (3.5-5.1)
--- NOTE | 2018-10-11 08:30 | Progress Note ---
Subjective Narrative: Patient without significant complaints. Feels well. Tolerating clear liquid diet. Exam Vital signs and Labs for Last 24 Hours: Temp Pulse Resp BP Pulse Ox 97.9 F 96 H 18 173/83 H 97 10/11/18 05:21 10/11/18 05:21 10/11/18 05:21 10/11/18 05:21 10/11/18 05:21 Laboratory Results - last 24 hr 10/10/18 11:29: POC Glucose 87 10/10/18 16:47: POC Glucose 126 H 10/10/18 20:55: POC Glucose 85 10/11/18 05:54: POC Glucose 82 10/11/18 05:55: WBC 7.5 D, RBC 3.13 L, Hgb 9.5 L, Hct 29.3 L, MCV 93.9, MCH 30.3, MCHC 32.2, RDW 14.7, Plt Count 138 L, MPV 7.6, Neut % (Auto) 84.9 H, Lymph % (Auto) 7.7 L, [place] % (Auto) 6.3, Eos % (Auto) 1.1, Baso % (Auto) 0.1, Neut # (Auto) 6.3, Lymph # (Auto) 0.6 L, [place] # (Auto) 0.5, Eos # (Auto) 0.1, Baso # (Auto) 0.0 10/11/18 05:55: Sodium 139, Potassium 4.2, Chloride 105, Carbon Dioxide 20 L, Anion Gap 18.2 H, BUN 17, Creatinine 1.08, Estimated Creat Clear 94, Estimated GFR 68, Est GFR ( Amer) 82 D, Glucose 84, Calcium 8.4 L I & O for Last 24 hours: Intake & Output 10/08/18 10/09/18 10/10/18 10/11/18 11:59 11:59 11:59 11:59 Intake Total 1400 / 1400 3338 / 3338 1758 / 1758 1381 / 1381 Output Total 300 / 300 70 / 70 605 / 605 1330 / 1330 Balance 1100 / 1100 3268 / 3268 1153 / 1153 51 / 51 Weight 225 lb 0.343 oz 225 lb 0.343 oz 227 lb 4 oz - *Routine Abdominal Exam Present: soft, surgical scars, drain Progress Note: A&P (1) Cholelithiasis Status: Acute Current Visit: Yes (2) Renal insufficiency Status: Acute Current Visit: Yes (3) Obese Status: Acute Current Visit: Yes (4) Thrombocytopenia Status: Acute Current Visit: Yes (5) Parkinson disease Status: Acute Current Visit: Yes (6) Acute blood loss anemia Status: Acute Current Visit: Yes (7) Gallbladder necrosis Status: Acute Current Visit: Yes Assessment and Plan for All Diagnoses:: Will advance diet to bland diet today. ASHVIN output ill quite bilious. Continue to monitor. Recheck liver function tests, electrolytes, and hemoglobin/hematocrit tomorrow morning. If stable likely discharge with ASHVIN drain in place with close outpatient follow-up tomorrow.
--- NOTE | 2018-10-11 08:42 | Progress Note ---
Internal Medicine - PN: Subj *Date: 10/11/18 *Time: 08:40 Interval history: doing better but still with some drainage - ercp per gi Exam Vital signs and Labs for Last 24 Hours: Temp Pulse Resp BP Pulse Ox 97.9 F 96 H 18 173/83 H 97 10/11/18 05:21 10/11/18 05:21 10/11/18 05:21 10/11/18 05:21 10/11/18 05:21 Laboratory Results - last 24 hr 10/10/18 11:29: POC Glucose 87 10/10/18 16:47: POC Glucose 126 H 10/10/18 20:55: POC Glucose 85 10/11/18 05:54: POC Glucose 82 10/11/18 05:55: WBC 7.5 D, RBC 3.13 L, Hgb 9.5 L, Hct 29.3 L, MCV 93.9, MCH 30.3, MCHC 32.2, RDW 14.7, Plt Count 138 L, MPV 7.6, Neut % (Auto) 84.9 H, Lymph % (Auto) 7.7 L, [place] % (Auto) 6.3, Eos % (Auto) 1.1, Baso % (Auto) 0.1, Neut # (Auto) 6.3, Lymph # (Auto) 0.6 L, [place] # (Auto) 0.5, Eos # (Auto) 0.1, Baso # (Auto) 0.0 10/11/18 05:55: Sodium 139, Potassium 4.2, Chloride 105, Carbon Dioxide 20 L, Anion Gap 18.2 H, BUN 17, Creatinine 1.08, Estimated Creat Clear 94, Estimated GFR 68, Est GFR ( Amer) 82 D, Glucose 84, Calcium 8.4 L I & O for Last 24 hours: Intake & Output 10/08/18 10/09/18 10/10/18 10/11/18 11:59 11:59 11:59 11:59 Intake Total 1400 / 1400 3338 / 3338 1758 / 1758 1381 / 1381 Output Total 300 / 300 70 / 70 605 / 605 1330 / 1330 Balance 1100 / 1100 3268 / 3268 1153 / 1153 51 / 51 Weight 225 lb 0.343 oz 225 lb 0.343 oz 227 lb 4 oz - Constitutional no acute distress, obese - *Routine HEENT Exam Head: Present: normocephalic Eye: Present: EOMI, PERRL. Absent: conjunctival icterus ENT: Present: mucous membranes dry - *Routine Neck Exam Absent: JVD - *Routine Respiratory Exam Present: decreased breath sounds - *Routine Cardiovascular Exam Present: RRR, murmur - *Routine Abdominal Exam Present: soft - *Routine Extremities Exam Absent: calf tenderness - *Routine Skin Exam Present: intact - *Routine Neurological Exam Present: alert, CN II-XII intact - Routine Psychiatric Exam Present: normal affect Assessment and Plan (1) Cholelithiasis Start date: 10/04/18 Current visit: Yes Status: Acute Qualifiers: Cholelithiasis location: gallbladder Cholecystitis presence: without cholecystitis Biliary obstruction: without biliary obstruction Qualified Code(s): K80.20 - Calculus of gallbladder without cholecystitis without obstruction Category: Medical Code(s): K80.20 - Calculus of gallbladder without cholecystitis without obstruction (2) Renal insufficiency Current visit: Yes Status: Acute Category: Medical Code(s): N28.9 - Dis order of kidney and ureter, unspecified (3) Obese Current visit: Yes Status: Acute Qualifiers: Obesity type: due to excess calories Obesity classification: adult class 1 (BMI 30 - 34.9) Serious obesity comorbidity presence: with serious comorbidity Body mass index: BMI 30.0-30.9 Qualified Code(s): E66.09 - Other obesity due to excess calories; Z68.30 - Body mass index (BMI) 30.0-30.9, adult Category: Medical Code(s): E66.9 - Obesity, unspecified (4) Thrombocytopenia Current visit: Yes Status: Acute Category: Medical Code(s): D69.6 - Thrombocytopenia, unspecified (5) Parkinson disease Current visit: Yes Status: Acute Category: Medical Code(s): G20 - Parkinson's disease (6) Acute blood loss anemia Current visit: Yes Status: Acute Category: Medical Code(s): D62 - Acute posthemorrhagic anemia (7) Gallbladder necrosis Current visit: Yes Status: Acute Category: Medical Code(s): K81.0 - Acute cholecystitis
[2018-10-12 05:32] LABS: Basophils % 0.1 % (0.1-2.0); Eosinophils # 0.1 K/mm3 (0.0-0.4); Eosinophils % 2.2 % (0.1-12.0); Hemoglobin 9.5 g/dL (14.1-18.0); Lymphocytes # 0.5 K/mm3 (0.7-4.5); Lymphocytes % 10.7 % (10-50); Mean Corpuscular HGB Conc 32.6 g/dL (31.8-35.4); Mean Corpuscular Hemoglobin 30.2 pg (27.0-31.2); Mean Corpuscular Volume 92.8 fl (80-94); Mean Platelet Volume 7.4 fl (7.4-10.4); Monocytes # 0.4 K/mm3 (0.1-1.0); Monocytes % 7.1 % (1.7-9.3); Neutrophils % 79.9 % (37.0-80.0); Platelet Count 166 K/mm3 (142-424); Red Blood Count 3.13 M/mm3 (4.60-6.20); Red Cell Distribution Width 14.9 % (11.5-17.5)
[2018-10-12 05:44] LABS: Albumin Level 2.1 gm/dL (3.4-5.0); Albumin/Globulin Ratio 0.8 (1.1-1.8); Anion Gap 15.7 mEq/L (5-15); Bilirubin,Total 0.8 mg/dL (0.2-1.0); Calcium 8.1 mg/dL (8.5-10.1); Globulin 2.6 gm/dl (1.3-3.2); Potassium 3.7 mmoL/L (3.5-5.1); Total Protein,Serum 4.7 gm/dL (6.4-8.2)
--- NOTE | 2018-10-12 08:30 | Progress Note ---
Subjective Patient reports: feels better Narrative: Patient has tolerated low-fat diet without difficulty. He feels well. He feels better than he has during his admission. Exam Vital signs and Labs for Last 24 Hours: Temp Pulse Resp BP Pulse Ox 98.4 F 107 H 16 182/100 H 98 10/12/18 08:00 10/12/18 08:00 10/12/18 08:00 10/12/18 08:00 10/12/18 08:00 Laboratory Results - last 24 hr 10/11/18 11:36: POC Glucose 112 H 10/11/18 16:40: POC Glucose 101 10/11/18 21:03: POC Glucose 86 10/12/18 04:55: WBC 5.0 D, RBC 3.13 L, Hgb 9.5 L, Hct 29.0 L, MCV 92.8, MCH 30.2, MCHC 32.6, RDW 14.9, Plt Count 166, MPV 7.4, Neut % (Auto) 79.9, Lymph % (Auto) 10.7, [place] % (Auto) 7.1, Eos % (Auto) 2.2, Baso % (Auto) 0.1, Neut # (Auto) 4.0, Lymph # (Auto) 0.5 L, [place] # (Auto) 0.4, Eos # (Auto) 0.1, Baso # (Auto) 0.0 10/12/18 04:55: Sodium 141, Potassium 3.7, Chloride 106, Carbon Dioxide 23, Anion Gap 15.7 H, BUN 14, Creatinine 1.11, Estimated Creat Clear 92, Estimated GFR 66, Est GFR ( Amer) 79, Glucose 101 D, Calcium 8.1 L, Total Bilirubin 0.8, AST 10 L, ALT 14 D, Alkaline Phosphatase 117 H, Total Protein 4.7 L, Albumin 2.1 L, Globulin 2.6, Albumin/Globulin Ratio 0.8 L 10/12/18 05:50: POC Glucose 95 I & O for Last 24 hours: Intake & Output 10/09/18 10/10/18 10/11/18 10/12/18 11:59 11:59 11:59 11:59 Intake Total 3338 / 3338 1758 / 1758 1891 / 1891 2778 / 2778 Output Total 70 / 70 605 / 605 1330 / 1330 443 / 443 Balance 3268 / 3268 1153 / 1153 561 / 561 2335 / 2335 Weight 225 lb 0.343 oz 227 lb 4 oz 227 lb 4 oz - *Routine Abdominal Exam Comments: His abdomen is soft and nontender. Incisions are healing well. ASHVIN drain has continued bilious output, possibly somewhat enrollment specialist. Progress Note: A&P (1) Cholelithiasis Status: Acute Current Visit: Yes (2) Renal insufficiency Status: Acute Current Visit: Yes (3) Obese Status: Acute Current Visit: Yes (4) Thrombocytopenia Status: Acute Current Visit: Yes (5) Parkinson disease Status: Acute Current Visit: Yes (6) Acute blood loss anemia Status: Acute Current Visit: Yes (7) Gallbladder necrosis Status: Acute Current Visit: Yes Assessment and Plan for All Diagnoses:: May be okay for discharge with a drain in place and close outpatient follow-up.
--- NOTE | 2018-10-12 09:01 | Discharge Summary ---
General - General Admission date:: 10/05/18 Discharge date: 10/12/18 HPI HPI: this wm presents with sev abd pain - he reports n/v but no fever or diarrhea and was seen in the ed and admitted with abn ct and pain despite iv meds - he was also admitted for surg consult Hospital Course Hospital Course: pt admitted with sev abd pain and did better with ivf and pain meds - he was seen by surg -. Taiwo is a 68-year-old male that presents with right upper quadrant abdominal pain and radiation to the back. Persistent pain at home prompted evaluation and [facility] emergency department. Sub sequent admission. Surgical consultation requested for potential acute cholecystitis. CT imaging obtained. Findings demonstrate cholelithiasis without pericholecystic fluid or gallbladder wall thickening. Pain has been difficult to manage. No nausea or emesis. No fever or chills. Patient was similar episode approximately 2 weeks ago, however, primary complaint was nausea and emesis; minimal pain. This prompted inpatient admission with upper GI and ultrasound. Upper GI and small bowel follow-through without significant abnormality although there is some suspicion for duodenal filling defect; EGD recommended. Gallbladder ultrasound completed. Sludge within the gallbladder noted. No evidence of pericholecystic fluid. No evidence of gallbladder wall thickening. EGD was then ultimately performed "healed ulcerations" were noted; mild gastritis. At the time of discharge additional colonoscopy and repeat EGD were recommended. According to the patient's , gallbladder surgery was discussed although this is felt not to be the appropriate decision at that current admission. Discharge home without significant improvement. Returns now with continued complaints. Incidental note a 30 pound weight loss over the past 5-6 weeks. Followed at [facility] in [place], [place] for previous renal cell carcinoma for which she is undergone left nephrectomy. This was performed in 2009. According to the patient and his there has been no evidence of recurrence. At the time of his last admission, acute kidney injury was noted; most likely secondary to dehydration from GI loss. Cholelithiasis Start date: 10/04/18 Current visit: Yes Status: Acute Qualifiers: Cholelithiasis location: gallbladder Cholecystitis presence: without cholecystitis Biliary obstruction: without biliary obstruction Qualified Code(s): K80.20 - Calculus of gallbladder without cholecystitis without obstruction Category: Medical Code(s): K80.20 - Calculus of gallbladder without cholecystitis without obstruction Symptomatic cholelithiasis. No evidence of acute cholecystitis. Oral intake limited. Pain control difficult. Upper GI and EGD reviewed. Gallbladder ultrasound reviewed. Minimal stones are noted on imaging. Healed ulcerations noted on mild elevation of alkaline phosphatase is noted. Normal AST and ALT. Normal bilirubin. Slight elevation in creatinine is also noted. Mild anemia; hemoglobin 11+. It is possible that the etiology of abdominal pain may be from different source other than symptomatic cholelithiasis. Patient has history of left renal cell carcinoma, however, further evaluation and surveillance is demonstrated no evident disease to date. Begin IV antibiotics. Allow clear liquids. Trend abdominal pain and clinical course today. Possible cholecystectomy as early as October 05, 2018. No further imaging required at this time. pt had surg as he was medically stable -ssessment and plan: Symptomatic cholelithiasis. WBC remains normal. Nontoxic and nonseptic. Clinical history most consistent with symptomatic gallstones; it is understood after discussion with both patient and spouse that complains of right upper quadrant abdominal pain could possibly be persistent after laparoscopic cholecystectomy. Increased risk for conversion to open cholecystectomy based on prior history of abdominal operative procedures; including left nephrectomy. Still, decision has been made to proceed with gallbladder removal based on a clinical history that is mostly consistent with above diagnosis. All risks benefits discussed. All goals and alternatives discussed. We have agreed to proceed. e-op Diagnosis:: Biliary colic. Symptomatic cholelithiasis. Post-op Diagnosis:: Acute cholecystitis. Gallbladder ischemia. Procedure performed:: Open cholecystectomy. Surgeon:: Nathen Carl MD FLEXO PRESS OPERATOR:: Pablo Cruz Anesthesia: GETA Estimated blood loss (mL): 750 Operative findings:: Gallbladder ischemia with tense gallbladder. Large amount of sludge within gallbladder. Inflammatory rind with pericholecystic fluid. pt has been slowly progressing since surg with diet and less pain - he has continued with bilious drainage in his evelio drain - M hepatobiliary wo pharm HISTORY: Status post cholecystectomy with bilious drainage from surgical drain ITS.REASON: POSSIBLE BILE LEAK ORDERING PHYSICIAN: Skyler Garcia MD PATIENT AGE: 68 years COMPARISON: None DOSE: 8.65 mCi technetium Choletec FINDINGS: Homogeneous activity is present within the hepatic parenchyma. Activity is present in the common bile duct by 30 minutes. Activity is present in the small bowel by 20 minutes. There is no evidence of biliary leak. There was a small area of slight increase activity in the region of the gallbladder fossa. This however is present on all the images and did not change and could be due to post surgical changes and does not have the appearance of a biliary leak. IMPRESSION: No evidence of bile leak. he was seen by dr meyer -ryderation: Mr. Maravilla is a 68-year-old gentleman with symptomatic gallstones who underwent laparoscopic cholecystectomy on October 05, 2018 (Dr. Dario Carl). The patient's prior CAT scan and ultrasound did not show evidence of acute cholecystitis (no gallbladder wall thickening or pericholecystic fluid) but the patient did have moderate to marked acute colitis at the time of surgery and it was difficult. Subsequent to surgery there has been excessive biliary drainage from the EVELIO drains suggesting a possible biliary leak. The patient's pain is gradually improved. A HIDA scan did not show evidence of biliary leakage. I did speak with Dr. Hung Rodarte 2 days ago and agreed to ERCP to assess further. The patient's alkaline phosphatase is 102 with total bilirubin 0.9 and ALT 23. He is anemic with hemoglobin 9.6 and hematocrit 30.8 but no leukocytosis. Procedure: Prior to the procedure, a history and physical exam was performed, and patient's medications and allergies were reviewed. The risks, benefits and alternatives of the sedation and procedure were discussed with the patient. All questions were answered and informed consent was obtained. The patient was brought to the fluoroscopic radiology room. Patient identification and proposed procedure were verified by the physician and the nurse. The patient was placed in a swimmer's position between left lateral decubitus and prone position and the scope was passed under direct vision. Throughout the procedure, the patient's blood pressure, pulse, and oxygen saturations were monitored continuously. The ERCP was accomplished without difficulty. The patient tolerated the procedure well. Findings: The side-viewing duodenal scope was passed directly into the upper esophagus and advanced to the second portion of the duodenum. There was mild peptic gastritis and peptic duodenitis. The ampulla was well visualized. Both the pancreatic duct and common bile duct were cannulated. The pancreatogram revealed a normal caliber pancreatic duct of 2-3 mm with normal filling of the head and body of the gland. Full filling of the tail was not performed. There was an angulated genu but no ductular ectasias. The common bile duct was cannulated and the cholangiogram did show a mildly dilated common bile duct to 9 or 10 mm (normal 6 mm or less). There was delayed drainage of the bile and contrast and a moderate amount of contrast was placed into the biliary system but no defined leak was identified and the cholecystectomy clips were viewed carefully and there was no appearance of extravasation of contrast. However, there was poor drainage of the biliary system. A biliary sphincterotomy was performed. There was some bile and black sludge. A 9-12 mm sweeping balloon was placed at the hilum and swept through the biliary system and there were at least 2 small black pigmented bile duct stones (2-3 mm choledocholithiasis) and black sludge but no purulence. There was excellent decompression of the biliary system. A second sweep yielded no additional stones or debris. The intrah epatic biliary system appeared normal. Impression: 1. Black pigmented small CBD stones/sludge (choledocholithiasis) with mildly dilated biliary system status post sphincterotomy and balloon clearan ce/decompression 2. No bile duct leak identified Plan: The patient should have clinical improvement with sphincterotomy alone if there is a small leak not identified. I do feel the leak is still a possibility given the fact that there was dilated biliary system and very poor decompression/clearance which should improve after sphincterotomy. I will discussed the findings with the patient, family and physici pt has continued to do well with stabilized labs but has some drainage and will be d/c to see surg this week as op -we discussed pain meds and home meds Objective Vital signs: Temp Pulse Resp BP Pulse Ox 98.4 F 107 H 16 182/100 H 98 10/12/18 08:00 10/12/18 08:00 10/12/18 08:00 10/12/18 08:00 10/12/18 08:00 no acute distress, obese - *Routine HEENT Exam Head: Present: normocephalic Eye: Present: EOMI, PERRL. Absent: conjunctival icterus ENT: Present: mucous membranes dry - *Routine Neck Exam Present: supple. Absent: JVD - *Routine Respiratory Exam Present: CTA bilaterally - *Routine Cardiovascular Exam Present: RRR, murmur, S4 - *Routine Abdominal Exam Present: soft Comments: has evelio drain with some bilious drainage - *Routine Extremities Exam Present: edema. Absent: calf tenderness - *Routine Skin Exam Present: intact - *Routine Neurological Exam Present: alert, oriented X3, CN II-XII intact - Routine Psychiatric Exam Present: normal affect Results Labs on day of discharge: Labs from last 24 hours 10/12/18 10/12/18 10/12/18 05:50 04:55 04:55 WBC 5.0 D RBC 3.13 L Hgb 9.5 L Hct 29.0 L MCV 92.8 MCH 30.2 MCHC 32.6 RDW 14.9 Plt Count 166 MPV 7.4 Neut % (Auto) 79.9 Lymph % (Auto) 10.7 Kerr % (Auto) 7.1 Eos % (Auto) 2.2 Baso % (Auto) 0.1 Neut # (Auto) 4.0 Lymph # (Auto) 0.5 L Kerr # (Auto) 0.4 Eos # (Auto) 0.1 Baso # (Auto) 0.0 Sodium 141 Potassium 3.7 Chloride 106 Carbon Dioxide 23 Anion Gap 15.7 H BUN 14 Creatinine 1.11 Estimated Creat Clear 92 Estimated GFR 66 Est GFR ( Amer) 79 Glucose 101 D POC Glucose 95 Calcium 8.1 L Total Bilirubin 0.8 AST 10 L ALT 14 D Alkaline Phosphatase 117 H Total Protein 4.7 L Albumin 2.1 L Globulin 2.6 Albumin/Globulin Ratio 0.8 L 10/11/18 10/11/18 10/11/18 21:03 16:40 11:36 WBC RBC Hgb Hct MCV MCH MCHC RDW Plt Count MPV Neut % (Auto) Lymph % (Auto) Kerr % (Auto) Eos % (Auto) Baso % (Auto) Neut # (Auto) Lymph # (Auto) Kerr # (Auto) Eos # (Auto) Baso # (Auto) Sodium Potassium Chloride Carbon Dioxide Anion Gap BUN Creatinine Estimated Creat Clear Estimated GFR Est GFR ( Amer) Glucose POC Glucose 86 101 112 H Calcium Total Bilirubin AST ALT Alkaline Phosphatase Total Protein Albumin Globulin Albumin/Globulin Ratio DS: Diagnosis - Discharge Diagnosis (1) Cholelithiasis Status: Acute (2) Renal insufficiency Status: Acute (3) Obese Status: Acute (4) Thrombocytopenia Status: Acute (5) Parkinson disease Status: Acute (6) Acute blood loss anemia Status: Acute (7) Gallbladder necrosis Status: Acute (8) HTN (hypertension) Status: Acute Discharge Plan - Patient Discharge Instructions ACTIVITY: Continue current activity DIET: continue same diet Patient Instructions: Cholecystectomy -- Open Surgery, DI for Blood Transfusion, DI for Surgical Site Infection, DI for Cholecystitis - Follow up Plan Follow up with: Hung Rodarte MD [Staff Physician] - 1 week (May see Cayden or Tavon) Sawyer Montes De Oca MD [Staff Physician] - 1 week (f/u with either Tavon or Cayden) Disposition: Home, Self-Alf Medications: Home Medications Medication Instructions Recorded Confirmed Type aspirin 81 mg tablet,delayed 81 mg PO QODHS 09/30/17 10/04/18 History release hydrochlorothiazide 25 mg tablet 25 mg PO DAILY 09/30/17 10/04/18 History lisinopril 40 mg tablet 40 mg PO DAILY 09/30/17 10/04/18 History Indapamide [Lozol 2.5mg tablet] 2.5 mg PO HS 09/10/18 10/04/18 History Metoprolol Tartrate [Lopressor 25 mg PO BID 09/10/18 10/04/18 History 25mg tablet] Simvastatin 20 mg PO HS 09/10/18 10/04/18 History linagliptin 5 mg tablet 5 mg PO DAILY 09/23/18 10/04/18 History Prescriptions/Medication Reconciliation: Continue hydrochlorothiazide 25 mg tablet 25 mg PO DAILY lisinopril 40 mg tablet 40 mg PO DAILY aspirin 81 mg tablet,delayed release 81 mg PO QODHS linagliptin 5 mg tablet 5 mg PO DAILY Metoprolol Tartrate [Lopressor 25mg tablet] 25 mg PO BID Indapamide [Lozol 2.5mg tablet] 2.5 mg PO HS Simvastatin 20 mg PO HS
== END 2018-10-12 10:16 | disposition home or self-care (01) | DRG 415 ==
LOC: ER 22:04 → 2ND 22:04 → OBSVTOIN 10-04 00:40 → INTOOBSV 10-04 00:40 → 2ND 10-04 00:44
PROVIDERS: ADMIT Emergency Medicine; ATTEND Emergency Medicine
CPT/HCPCS: 36415; 74000; 74018; 74176; 74330; 78226; 80048; 80053; 80076; 81001; 82150; 82962; 83690; 84484; 85007; 85014; 85018; 85025; 85610; 85651; 85730; 86140; 86850; 86870; 87086; 93005; 94761; 96365; 96375; 99284; A9537; G0378; J0131; J1956; J2405; P9016; Q9967

== ENCOUNTER → 2019-04-10 07:42 | Outpatient (CLI) | payer MEDICARE, OTHER, SELFPAY ==
--- NOTE | 2019-04-10 07:44 | CT_ITS ---
CT abdomen pelvis wo con CLINICAL HISTORY: Follow-up postsurgical complications TECHNIQUE: Axial images obtained with sagittal and coronal reformats. All CT scans at the facility use one or more dose reduction, viz: automated exposure control, ma/kV adjustment per patient size (including targeted exams where dose is matched to indication, i.e. head), or iterative reconstruction technique. COMPARISON: Noncontrast CT scan abdomen pelvis 10/23/2018 PROCEDURE: Oral Contrast:None IV Contrast: 0 ml Optiray 350 was injected intravenously. FINDINGS: Lung bases: Clear, there is no pleural fluid. There is mild generalized cardio megaly and there is mild coronary artery calcification. ABDOMEN: Liver: The large subscapular fluid collection seen anterior aspect left lobe of liver on the previous study has resolved. The small fluid collection and hazy opacities in the gallbladder fossa has resolved as well. The liver otherwise appears normal. Gallbladder: Postcholecystectomy with interval resolution of postsurgical changes in the gallbladder fossa possibly representing a small abscess Pancreas: No masses or peripancreatic fluid collections. Spleen: Unremarkable. Adrenals: Unremarkable Kidneys/ureters: Post left nephrectomy, there is a stable exophytic benign-appearing cystic lesion lower pole right kidney. Stomach bowel: There is a [id number] sized hiatal hernia. The stomach otherwise appears normal. The small bowel is normal. There has been a previous appendectomy. There are scattered stool and gas seen throughout the colon. Minimal postinflammatory stranding is again seen right upper quadrant right paracolic gutter but certainly less prominent than on the previous exam. Peritoneum: Minimal postsurgical changes from previous umbilical hernia surgery. Lymph nodes: No enlarged lymph nodes apparent. Vasculature: There is prominent diffuse arteriosclerotic calcification of the abdominal aorta and proximal common iliac arteries and superficial femoral arteries bilaterally. Bones: There are mild degenerative changes of both hips. PELVIS: Reproductive: Unremarkable Bladder: , The prostate is borderline enlarged Appendix: Post appendectomy IMPRESSION: 1. Interval resolution of large subcapsular fluid collection and inflammatory changes in the gallbladder fossa seen on previous exam 2. Minor and likely post inflammatory scarring right upper quadrant and right paracolic gutter, no acute intra-abdominal or pelvic pathology identified
== END ==
PROVIDERS: PCP Emergency Medicine; Visit Provider Physician Assistant
DX: K42.9 Umbilical hernia without obstruction or gangrene (principal)
CPT/HCPCS: 74176

== ENCOUNTER → 2019-04-17 17:35 | Outpatient (CLI) | payer MEDICARE, OTHER, SELFPAY ==
[2019-04-17 18:14] LABS: Basophils % 0.4 % (0.1-2.0); Eosinophils % 0.5 % (0.1-12.0); Hematocrit 33.4 % (42.0-52.0); Hemoglobin 11.3 g/dL (14.1-18.0); Lymphocytes # 0.8 K/mm3 (0.7-4.5); Lymphocytes % 16.3 % (10-50); Mean Corpuscular HGB Conc 33.8 g/dL (31.8-35.4); Mean Corpuscular Hemoglobin 31.4 pg (27.0-31.2); Mean Corpuscular Volume 92.8 fl (80-94); Mean Platelet Volume 8.3 fl (7.4-10.4); Monocytes # 0.3 K/mm3 (0.1-1.0); Neutrophils % 77.9 % (37.0-80.0); Platelet Count 161 K/mm3 (142-424); Red Cell Distribution Width 13.3 % (11.5-17.5); White Blood Count 5.1 K/mm3 (4.8-10.8)
[2019-04-17 18:43] LABS: Alanine Aminotransferase 7 U/L (12-78); Albumin Level 4.1 gm/dL (3.4-5.0); Albumin/Globulin Ratio 1.4 (1.1-1.8); Alkaline Phosphatase 111 U/L (46-116); Anion Gap 11.3 mEq/L (5-15); Aspartate Amino Transferase 6 U/L (15-37); Bilirubin,Total 1.8 mg/dL (0.2-1.0); Blood Urea Nitrogen 26 mg/dL (7-18); Calcium 9.1 mg/dL (8.5-10.1); Carbon Dioxide 30 mmol/L (21.0-32.0); Chloride 101 mmol/L (98-107); Creatinine,Serum 1.55 mg/dL (0.70-1.30); Estimated Glomerular Filt Rate 45 ml/min (>60); GFR (African American) 54 ML/MIN (>60); Globulin 2.9 gm/dl (1.3-3.2); Glucose 111 mg/dL (74-106); Lipase 238 u/L (73-393); Potassium 4.3 mmoL/L (3.5-5.1); Sodium 138 mmol/L (136-145)
[2019-04-17 18:49] LABS: C-Reactive Protein < 0.2 mg/dL (0.0-0.9)
[2019-04-17 19:02] LABS: Erythrocyte Sedimentation Rate 20 mm/hr (0-20)
== END ==
PROVIDERS: Visit Provider Emergency Medicine
DX: E11.9 Type 2 diabetes mellitus without complications (principal)
CPT/HCPCS: 80053; 83690; 85025; 85651; 86140

== ENCOUNTER → 2019-05-08 16:56 | Outpatient (CLI) | payer MEDICARE, OTHER, SELFPAY ==
[2019-05-08 17:20] LABS: Basophils % 0.2 % (0.1-2.0); Eosinophils % 0.5 % (0.1-12.0); Hematocrit 33.4 % (42.0-52.0); Lymphocytes # 1.6 K/mm3 (0.7-4.5); Lymphocytes % 20.6 % (10-50); Mean Corpuscular HGB Conc 32.9 g/dL (31.8-35.4); Mean Corpuscular Hemoglobin 29.6 pg (27.0-31.2); Mean Corpuscular Volume 89.8 fl (80-94); Mean Platelet Volume 10.2 fl (7.4-10.4); Monocytes # 0.5 K/mm3 (0.1-1.0); Monocytes % 5.7 % (1.7-9.3); Neutrophils # 5.8 K/mm3 (1.8-7.8); Neutrophils % 72.9 % (37.0-80.0); Platelet Count 194 K/mm3 (142-424); Red Blood Count 3.72 M/mm3 (4.60-6.20)
[2019-05-08 17:44] LABS: Anion Gap 15.4 mEq/L (5-15); Blood Urea Nitrogen 41 mg/dL (7-18); Calcium 9.5 mg/dL (8.5-10.1); Carbon Dioxide 29 mmol/L (21.0-32.0); Chloride 101 mmol/L (98-107); Creatinine,Serum 1.93 mg/dL (0.70-1.30); Estimated Glomerular Filt Rate 35 ml/min (>60); GFR (African American) 42 ML/MIN (>60); Glucose 116 mg/dL (74-106); Potassium 4.4 mmoL/L (3.5-5.1); Sodium 141 mmol/L (136-145)
== END ==
PROVIDERS: Visit Provider Surgery
DX: E86.0 Dehydration (principal); K42.9 Umbilical hernia without obstruction or gangrene; Z01.818 Encounter for other preprocedural examination
CPT/HCPCS: 36415; 80048; 85025

== ENCOUNTER → 2020-02-15 09:05 | Outpatient (CLI) | payer MEDICARE, OTHER, SELFPAY ==
[2020-02-15 15:23] LABS: Coronavirus 19 IgG Antibody Negative (Negative); Coronavirus 19 IgM Antibody Negative (Negative)
== END ==
PROVIDERS: Visit Provider Ophthalmology
DX: Z01.818 Encounter for other preprocedural examination (principal); H26.9 Unspecified cataract
CPT/HCPCS: 36415; 86328

== ENCOUNTER 2020-02-16 07:08 | Day surgery (SDC) | payer MEDICARE, OTHER, SELFPAY ==
[2020-02-10 09:49] VITALS: BMI 29.5
--- NOTE | 2020-02-12 09:03 | SUR.PREOP ---
02/12/2020 @ 0900--PHONE CALL MADE TO PATIENT. PATIENT UNDERSTANDS THAT LAB WORK AND COVID TESTING NEEDS TO BE COMPLETED @ 0900 ON 02/15/2020. PATIENT UNDERSTANDS IF LAB WORK AND COVID-19 TESTS ARE NOT COMPLETED BY 12PM ON THAT DATE, THE SURGERY SCHEDULED WILL BE CANCELLED AND RESCHEDULED FOR ANOTHER TIME.
[2020-02-16 07:25] VITALS: BP 151/66; PULSE 58; RESP 18; TEMP 36.2; O2SAT 95
[2020-02-16 07:37] LABS: POC Glucose,Bedside 117 (70-110)
[2020-02-16 08:30] VITALS: BP 189/82; PULSE 59; RESP 18; O2SAT 100
[2020-02-16 08:35] VITALS: BP 180/77; PULSE 57; RESP 20; O2SAT 100
[2020-02-16 08:40] VITALS: BP 175/77; PULSE 56; RESP 20; O2SAT 100
[2020-02-16 08:45] VITALS: BP 170/75; PULSE 55; RESP 18; O2SAT 100
[2020-02-16 08:47] VITALS: BP 146/70; PULSE 65; RESP 20; TEMP 36.3; O2SAT 95
== END 2020-02-16 08:58 | disposition home or self-care (01) ==
LOC: OR 07:10
PROVIDERS: PCP Emergency Medicine; Visit Provider Ophthalmology
DX: H25.811 Combined forms of age-related cataract, right eye (principal); H31.012 Macula scars of posterior pole (postinflammatory) (post-traumatic), left eye; Z96.1 Presence of intraocular lens; Z79.899 Other long term (current) drug therapy
CPT/HCPCS: 66984; 82962; V2632

== ENCOUNTER → 2020-03-16 12:08 | Outpatient (CLI) | payer MEDICARE, OTHER, SELFPAY ==
[2020-03-16 12:11] LABS: Adenovirus F 40/41, stool Not Detected (NotDetected); Astrovirus Not Detected (NotDetected); Campylobacter Not Detected (NotDetected); Clostridium Difficile A/B, PCR Not Detected (NotDetected); Cryptosporidium Not Detected (NotDetected); Cyclospora Cayetanesis Not Detected (NotDetected); Entamoeba histolytica Not Detected (NotDetected); Enteroaggregative E coli Not Detected (NotDetected); Enteropathogenic E coli Not Detected (NotDetected); Enterotoxigenic E coli Not Detected (NotDetected); Giardia lamblia Not Detected (NotDetected); Norovirus Not Detected (NotDetected); Plesimonas Shigalloides, PCR Not Detected (NotDetected); Rotavirus A Not Detected (NotDetected); Salmonella, PCR Not Detected (NotDetected); Sapovirus Not Detected (NotDetected); Shiga-like toxin E coli Not Detected (NotDetected); Shigella Enterovasive E coli Not Detected (NotDetected); Vibrio Cholerae Not Detected (NotDetected); Vibrio, PCR Not Detected (NotDetected); Yersinia Entercolitica, PCR Not Detected (NotDetected)
== END ==
PROVIDERS: Visit Provider Physician Assistant
DX: R19.7 Diarrhea, unspecified (principal)
CPT/HCPCS: 87506

== ENCOUNTER → 2020-04-12 11:29 | Outpatient (CLI) | payer MEDICARE, OTHER, SELFPAY ==
[2020-04-12 11:35] LABS: Microscopic, Urine URINE MICROSCOPIC (MICROSCOPIC)
[2020-04-12 12:04] LABS: Eosinophils # 0.1 K/mm3 (0.0-0.4); Eosinophils % 1.8 % (0.1-12.0); Hematocrit 31.1 % (42.0-52.0); Hemoglobin 10.5 g/dL (14.1-18.0); Lymphocytes # 0.8 K/mm3 (0.7-4.5); Lymphocytes % 22.8 % (10-50); Mean Corpuscular HGB Conc 33.6 g/dL (31.8-35.4); Mean Corpuscular Hemoglobin 32.9 pg (27.0-31.2); Mean Corpuscular Volume 98.1 fl (80-94); Mean Platelet Volume 9.2 fl (7.4-10.4); Monocytes # 0.2 K/mm3 (0.1-1.0); Monocytes % 4.8 % (1.7-9.3); Neutrophils # 2.4 K/mm3 (1.8-7.8); Neutrophils % 70.7 % (37.0-80.0); Platelet Count 138 K/mm3 (142-424); Red Blood Count 3.17 M/mm3 (4.60-6.20); Red Cell Distribution Width 15.2 % (11.5-17.5); White Blood Count 3.5 K/mm3 (4.8-10.8)
[2020-04-12 12:05] LABS: Appearance,Urine CLEAR (Clear); Bilirubin,Urine Negative (Negative); Blood, Urine TRACE-I (Negative); Color,Urine YELLOW (Yellow); Glucose,Urine (UA) Negative (Negative); Ketones,Urine Negative (Negative); Leukocyte Esterase,Urine Negative (Negative); Nitrate,Urine Negative (Negative); PH,Urine 5.5 (5.0-8.5); Protein,Urine Negative (Negative); Specific Gravity, Urine 1.025 (1.005-1.030); Urobilinogen,Urine 0.2 EU/dl (0.2)
[2020-04-12 12:28] LABS: Creatinine,Urine Random 182 mg/dL (Not Estab.)
[2020-04-12 12:31] LABS: Anion Gap 13.5 mEq/L (5-15); Blood Urea Nitrogen 24 mg/dl (9-20); Calcium 9.2 mg/dl (8.4-10.2); Carbon Dioxide 27 mmol/L (22.0-30.0); Chloride 103 mmol/L (98-107); Estimated Glomerular Filt Rate 46 ml/min (>60); GFR (African American) 56 ML/MIN (>60); Glucose 105 mg/dl (74-100); Phosphorous 3.5 mg/dl (2.5-4.5); Potassium 4.5 mmoL/L (3.5-5.1); Sodium 139 mmol/L (136-145)
[2020-04-12 12:43] LABS: Intact Parathyroid Hormone 90.4 pg/mL (7.5-53.5)
[2020-04-12 23:27] LABS: 25-OH Vitamin D, Total 25.5 ng/mL (30-100)
== END ==
PROVIDERS: Visit Provider Internal Medicine Nephrology
DX: N18.3 Chronic kidney disease, stage 3 (moderate) (principal)
CPT/HCPCS: 36415; 80069; 81001; 82306; 82570; 83970; 84155; 85025

== ENCOUNTER → 2020-07-06 11:06 | Outpatient (CLI) | payer MEDICARE, OTHER, SELFPAY ==
--- NOTE | 2020-07-06 11:21 | XR_ITS ---
PROCEDURE: XR CHEST 2V CLINICAL HISTORY: weight loss Weight loss COMPARISON: CR CXR CHEST(2 VIEWS-NOT PORTABLE) from 10/02/2016 CR CXR2V XR chest 2V from 09/10/2018 CR CXR1VP XR chest portable from 10/22/2018 FINDINGS: The cardiomediastinal silhouette and pulmonary vascularity are within normal limits. The lungs are clear without infiltrates, suspicious nodules, or pleural effusions. No acute bony abnormalities. IMPRESSION: No acute findings. Dictated by: Alphonso Aleman MD 07/06/2020 11:50 Alphonso Aleman MD in [place] 07/06/2020 11:50
[2020-07-06 11:47] LABS: Basophils % 0.3 % (0.1-2.0); Eosinophils # 0.1 K/mm3 (0.0-0.4); Hematocrit 32.4 % (42.0-52.0); Lymphocytes % 17.6 % (10-50); Mean Corpuscular Hemoglobin 30.7 pg (27.0-31.2); Mean Corpuscular Volume 90.3 fl (80-94); Mean Platelet Volume 8.5 fl (7.4-10.4); Monocytes # 0.3 K/mm3 (0.1-1.0); Monocytes % 5.2 % (1.7-9.3); Neutrophils # 4.2 K/mm3 (1.8-7.8); Neutrophils % 75.9 % (37.0-80.0); Platelet Count 202 K/mm3 (142-424); Red Blood Count 3.58 M/mm3 (4.60-6.20); Red Cell Distribution Width 16.1 % (11.5-17.5); White Blood Count 5.5 K/mm3 (4.8-10.8)
[2020-07-06 12:13] LABS: Alanine Aminotransferase 10 U/L (12-78); Albumin Level 4.4 g/dl (3.5-5.0); Albumin/Globulin Ratio 1.8 (1.1-1.8); Alkaline Phosphatase 179 U/L (38-126); Amylase 77 U/L (30-110); Anion Gap 13.3 mEq/L (5-15); Aspartate Amino Transferase 22 U/L (17-59); Bilirubin,Total 1.4 mg/dl (0.2-1.3); Blood Urea Nitrogen 29 mg/dl (9-20); Calcium 9.7 mg/dl (8.4-10.2); Carbon Dioxide 31 mmol/L (22.0-30.0); Chloride 97 mmol/L (98-107); Estimated Glomerular Filt Rate 40 ml/min (>60); GFR (African American) 48 ML/MIN (>60); Globulin 2.5 g/dL (1.3-3.2); Glucose 127 mg/dl (74-100); Lipase 241 U/L (23-300); Potassium 4.3 mmoL/L (3.5-5.1); Sodium 137 mmol/L (136-145); Total Protein,Serum 6.9 g/dl (6.3-8.2); Uric Acid 9.1 mg/dl (3.5-8.5)
[2020-07-06 12:31] LABS: T4 (Thyroxine) 12.7 ug/dl (5.53-11.0)
[2020-07-06 12:45] LABS: Prostate Specific Ag, Diagnost 1.99 ng/ml (0.0-4.0); Thyroid Stimulating Hormone 1.08 uIU/mL (0.465-4.68)
[2020-07-06 19:42] LABS: Covid-19 Nasal PCR Sendout Lex NOT DETECTED
[2020-07-08 11:09] LABS: Peripheral Smear Review Scanned Result
== END ==
PROVIDERS: Visit Provider Nurse Practitioner Family
DX: E86.0 Dehydration (principal); R63.4 Abnormal weight loss; R93.5 Abnormal findings on diagnostic imaging of other abdominal regions, including retroperitoneum; M25.50 Pain in unspecified joint; R11.2 Nausea with vomiting, unspecified; D64.9 Anemia, unspecified; Z03.818 Encounter for observation for suspected exposure to other biological agents ruled out
CPT/HCPCS: 36415; 71046; 80053; 82150; 83690; 84153; 84436; 84443; 84550; 85025; U0004

== ENCOUNTER → 2020-07-12 07:52 | Outpatient (CLI) | payer MEDICARE, OTHER, SELFPAY ==
--- NOTE | 2020-07-12 07:52 | US_ITS ---
PROCEDURE: US ABDOMEN COMPLETE CLINICAL INDICATION: abd pain Abdominal pain and weight loss COMPARISON: US RUQ US RUQ-(ABD LTD)1ORGAN/QUAD/FU from 07/13/[address] abdomen pelvis wo con from 04/10/2019 FINDINGS: PANCREAS: Unremarkable. No obvious mass or abnormal fluid collection. No ductal dilatation LIVER: No focal liver lesions demonstrated. Homogeneous echogenicity. No intrahepatic biliary ductal dilatation evident. There is appropriate direction of blood flow within a non dilated portal vein. There are few scattered foci of increased echogenicity within the liver which could be air within the biliary tree as seen on prior CT scan of 04/10/2019. Hyperechoic areas are present within the region of the jasmeet hepatis with some posterior acoustical shadowing which could also be due to air within the common bile duct. Cannot exclude the possibility of common duct stones. The common duct measures up to 10 mm. RIGHT KIDNEY: Unremarkable. Normal size and echogenicity. No hydronephrosis there is a 15 mm cyst involving the right kidney anteriorly LEFT KIDNEY: Prior left nephrectomy GALLBLADDER: Prior cholecystectomy. AORTA: No evidence of aneurysmal dilatation. SPLEEN: Unremarkable. Normal size and echogenicity ASCITES: None demonstrated. IMPRESSION: There has been a prior cholecystectomy. Hyperechoic foci are present within the biliary tree and portal region and may be due to pneumobilia as seen on prior abdomen CT. Cannot exclude the possibility of stones within the common bile duct area. MRCP may provide further evaluation. The common bile duct is somewhat prominent at 10 mm. Dictated by: Alphonso Aleman MD 07/12/2020 10:19 Alphonso Aleman MD in [place] 07/12/2020 10:19
== END ==
PROVIDERS: PCP Emergency Medicine; Visit Provider Nurse Practitioner Family
DX: R11.2 Nausea with vomiting, unspecified (principal); R10.9 Unspecified abdominal pain
CPT/HCPCS: 76700

== ENCOUNTER → 2020-07-30 07:58 | Outpatient (CLI) | payer MEDICARE, OTHER, SELFPAY ==
[2020-07-30 09:30] LABS: Blood Urea Nitrogen 23 mg/dl (9-20); Estimated Glomerular Filt Rate 55 ml/min (>60); GFR (African American) 66 ML/MIN (>60)
== END ==
PROVIDERS: Visit Provider Nurse Practitioner Family
DX: Z01.818 Encounter for other preprocedural examination (principal)
CPT/HCPCS: 36415; 82565; 84520

== ENCOUNTER → 2020-08-01 08:24 | Outpatient (CLI) | payer MEDICARE, OTHER, SELFPAY ==
--- NOTE | 2020-08-01 08:28 | MR_ITS ---
PROCEDURE: MR ABDOMEN WO/W CON CLINICAL INDICATION: GENERALIZED ABD PAIN, ABNORMAL FINDINGS ON US WEIGHT LOSS, TIGHTNESS IN ABDOMEN SINCE HAVING GALLBLADDER REMOVED IN 2019. ABNOMRAL IMAGING ON ULTRASOUND 07-12-20. HX KIDNEY CANCER PT HAD KIDNEY REMOVED. 17ML PROHANCE INJECTED. COMPARISON: CT ABDPELWO CT abdomen pelvis wo con from 04/10/2019 US US ABDOMEN COMPLETE from 07/12/2020 TECHNIQUE: Routine multiplanar multi echo sequences are performed without gadolinium enhancement. FINDINGS: There has been a prior left-sided nephrectomy. There is a mild degree of motion artifact which does obscure fine detail. The spleen is enlarged at 16 x 11 cm. Artifact is present multiple gallbladder clips. No focal liver lesion is evident. Pre and post enhanced images are obtained of the abdomen. The pancreas has an unremarkable appearance. There are several right renal cysts the largest along the lower pole of the right kidney measuring 5 x 3.6 cm. MRCP: There is a significant amount of artifact from motion. The MRCP images are therefore not reliable. On the thick slab images there is a 12 by 8 mm area of decreased signal intensity within the common bile duct distally suggesting the possibility of a common duct stone. Artifact however is also a strong consideration. IMPRESSION: 1. Prior left nephrectomy. Multiple right renal cysts. 2. Prior cholecystectomy. Motion artifact obscures fine detail within the biliary tree. There is a area of decreased signal intensity within the common bile duct distally on the MRCP images. This could very well represent artifact, air within the common bile duct, or a common duct stone. CT without and with contrast with pancreatic protocol may provide further evaluation if clinically warranted. Dictated by: Alphonso Aleman MD 08/03/2020 11:57 Alphonso Aleman MD in [place] 08/03/2020 11:57
== END ==
PROVIDERS: PCP Emergency Medicine; Visit Provider Nurse Practitioner Family
DX: R10.84 Generalized abdominal pain (principal); R93.3 Abnormal findings on diagnostic imaging of other parts of digestive tract
CPT/HCPCS: 74183; 76376; A9576

== ENCOUNTER → 2020-08-27 09:30 | Outpatient (CLI) | payer MEDICARE, OTHER, SELFPAY ==
[2020-08-27 10:23] LABS: Basophils % 0.4 % (0.1-2.0); Eosinophils # 0.2 K/mm3 (0.0-0.4); Eosinophils % 2.4 % (0.1-12.0); Hematocrit 38.1 % (42.0-52.0); Hemoglobin 12.1 g/dL (14.1-18.0); Lymphocytes # 0.9 K/mm3 (0.7-4.5); Lymphocytes % 13.8 % (10-50); Mean Corpuscular HGB Conc 31.9 g/dL (31.8-35.4); Mean Corpuscular Hemoglobin 31.7 pg (27.0-31.2); Mean Corpuscular Volume 99.3 fl (80-94); Mean Platelet Volume 8.6 fl (7.4-10.4); Monocytes # 0.3 K/mm3 (0.1-1.0); Monocytes % 5.1 % (1.7-9.3); Neutrophils % 78.3 % (37.0-80.0); Platelet Count 166 K/mm3 (142-424); Red Blood Count 3.83 M/mm3 (4.60-6.20); Red Cell Distribution Width 16.8 % (11.5-17.5); White Blood Count 6.3 K/mm3 (4.8-10.8)
[2020-08-27 11:14] LABS: Hemoglobin A1C 4.6 % (4.0-6.0)
[2020-08-27 11:24] LABS: Albumin Level 4.6 g/dl (3.5-5.0); Albumin/Globulin Ratio 1.8 (1.1-1.8); Alkaline Phosphatase 102 U/L (38-126); Amylase 63 U/L (30-110); Anion Gap 13.8 mEq/L (5-15); Aspartate Amino Transferase 19 U/L (17-59); Bilirubin,Total 1.3 mg/dl (0.2-1.3); Blood Urea Nitrogen 25 mg/dl (9-20); Calcium 9.9 mg/dl (8.4-10.2); Carbon Dioxide 26 mmol/L (22.0-30.0); Chloride 104 mmol/L (98-107); Chol/HDL Ratio 1.5 (1-3.5); Cholesterol 132 mg/dl (140-200); Estimated Glomerular Filt Rate 50 ml/min (>60); GFR (African American) 60 ML/MIN (>60); Globulin 2.5 g/dL (1.3-3.2); Glucose 102 mg/dl (74-100); HDL Cholesterol 91 mg/dl (40-60); Lipase 130 U/L (23-300); Potassium 4.8 mmoL/L (3.5-5.1); Sodium 139 mmol/L (136-145); Total Protein,Serum 7.1 g/dl (6.3-8.2); Triglycerides 109 mg/dl (30-150); Uric Acid 9.7 mg/dl (3.5-8.5); VLDL Cholesterol 22 mg/dL (0-40)
[2020-08-27 11:25] LABS: Alanine Aminotransferase < 4 U/L (12-78)
[2020-08-27 11:35] LABS: Direct LDL Cholesterol 33.12 mg/dL (100-129)
== END ==
PROVIDERS: Visit Provider Nurse Practitioner Family
DX: D64.9 Anemia, unspecified (principal); E11.9 Type 2 diabetes mellitus without complications; E66.9 Obesity, unspecified; I10 Essential (primary) hypertension; M10.9 Gout, unspecified; E86.0 Dehydration
CPT/HCPCS: 36415; 80053; 80061; 82150; 83036; 83690; 84550; 85025

== ENCOUNTER → 2020-09-12 07:56 | Outpatient (CLI) | payer MEDICARE, OTHER, SELFPAY ==
[2020-09-12 08:21] LABS: Basophils % 0.7 % (0.1-2.0); Eosinophils # 0.1 K/mm3 (0.0-0.4); Eosinophils % 0.9 % (0.1-12.0); Hematocrit 43.6 % (42.0-52.0); Hemoglobin 14.2 g/dL (14.1-18.0); Lymphocytes # 1.8 K/mm3 (0.7-4.5); Lymphocytes % 28.6 % (10-50); Mean Corpuscular HGB Conc 32.6 g/dL (31.8-35.4); Mean Corpuscular Hemoglobin 31.9 pg (27.0-31.2); Mean Corpuscular Volume 97.9 fl (80-94); Mean Platelet Volume 8.5 fl (7.4-10.4); Monocytes # 0.4 K/mm3 (0.1-1.0); Neutrophils # 4.1 K/mm3 (1.8-7.8); Neutrophils % 63.8 % (37.0-80.0); Platelet Count 160 K/mm3 (142-424); Red Blood Count 4.45 M/mm3 (4.60-6.20); Red Cell Distribution Width 15.8 % (11.5-17.5); White Blood Count 6.4 K/mm3 (4.8-10.8)
[2020-09-12 08:52] LABS: Alanine Aminotransferase 5 U/L (12-78); Albumin Level 4.3 g/dl (3.5-5.0); Albumin/Globulin Ratio 1.7 (1.1-1.8); Alkaline Phosphatase 90 U/L (38-126); Anion Gap 12.5 mEq/L (5-15); Aspartate Amino Transferase 19 U/L (17-59); Bilirubin,Total 0.8 mg/dl (0.2-1.3); Blood Urea Nitrogen 43 mg/dl (9-20); Calcium 9.8 mg/dl (8.4-10.2); Carbon Dioxide 30 mmol/L (22.0-30.0); Chloride 99 mmol/L (98-107); Estimated Glomerular Filt Rate 46 ml/min (>60); GFR (African American) 56 ML/MIN (>60); Globulin 2.5 g/dL (1.3-3.2); Glucose 105 mg/dl (74-100); Potassium 4.5 mmoL/L (3.5-5.1); Sodium 137 mmol/L (136-145); Total Protein,Serum 6.8 g/dl (6.3-8.2)
== END ==
PROVIDERS: Visit Provider Nurse Practitioner Family
DX: E86.0 Dehydration (principal); R79.89 Other specified abnormal findings of blood chemistry
CPT/HCPCS: 36415; 80053; 85025

== ENCOUNTER → 2020-09-15 08:44 | Outpatient (CLI) | payer MEDICARE, OTHER, SELFPAY ==
[2020-09-15 10:40] LABS: Coronavirus 19 IgG Antibody Negative (Negative); Coronavirus 19 IgM Antibody Negative (Negative)
== END ==
PROVIDERS: Visit Provider Internal Medicine Gastroenterology
DX: Z01.818 Encounter for other preprocedural examination (principal); Z03.818 Encounter for observation for suspected exposure to other biological agents ruled out; K85.90 Acute pancreatitis without necrosis or infection, unspecified
CPT/HCPCS: 36415; 86328

== ENCOUNTER 2020-09-16 11:26 | Day surgery (SDC) | payer MEDICARE, OTHER, SELFPAY ==
[2020-09-06 14:05] VITALS: BMI 28.0
--- NOTE | 2020-09-16 12:45 | FL_ITS ---
PROCEDURE: FL ERCP CLINICAL INDICATION: for the condition of abnormal findings on diagnostic imaging Possible choledocholithiasis COMPARISON: CT ABDPELWO CT abdomen pelvis wo con from 04/10/2019 MR MR ABDOMEN WO/W CON from 08/01/2020 FINDINGS: One image is submitted showing pneumobilia with the scope and catheter in the common bile duct in place and multiple filling defects within the distal common bile duct which could be due to stones or sludge. The OR note from the ERCP comminuted the there were no solid stones identified therefore, this may represent multiple air bubbles. Common bile duct appears dilated. IMPRESSION: Pneumobilia with dilated common bile duct and multiple air bubbles in the distal common Dictated by: Alphonso Aleman MD 09/29/2020 10:04 Alphonso Aleman MD in [place] 09/29/2020 10:04
[2020-09-16 12:48] VITALS: BP 172/74; PULSE 69; RESP 18; TEMP 36.3; O2SAT 99
[2020-09-16 13:10] LABS: POC Glucose,Bedside 107 (70-110)
[2020-09-16 13:40] VITALS: BP 172/87; PULSE 69; RESP 18; TEMP 36.5; O2SAT 96
--- NOTE | 2020-09-16 13:43 | P.PCN_ITS ---
[facility] Procedure Note Procedure Note:: ERCP procedure Report: Endoscopic retrograde cholangiography with balloon extraction Endoscopist: Timmy Sanchez II, MD Referring Physician: Skyler Garcia MD Date of Procedure: September 16, 2020 Equipment: Olympus 180 side viewing endoscope duodenoscope Sedation: MAC sedation Indication: Mr. Maravilla is a 70-year-old gentleman with a history of prior cholecystectomy with complications back in September 2018. He has had multiple ERCPs with stent placement and gradual improvement. The patient did recently have an MRI showing an area of increased signal intensity within the distal common bile duct. The patient did have a mildly elevated amylase. He has struggled with nausea, vomiting, diarrhea and abdominal discomfort. Procedure: Prior to the procedure, a history and physical exam was performed, and patient's medications and allergies were reviewed. The risks, benefits and alternatives of the sedation and procedure were discussed with the patient. All questions were answered and informed consent was obtained. The patient was brought to the fluoroscopic radiology room. Patient identification and proposed procedure were verified by the physician and the nurse. The patient was placed in a swimmer's position between left lateral decubitus and prone position and the scope was passed under direct vision. Throughout the procedure, the patient's blood pressure, pulse, and oxygen saturations were monitored continuously. The ERCP was accomplished without difficulty. The patient tolerated the procedure well. Findings: The side-viewing duodenal scope was passed directly into the upper esophagus and advanced to the second portion of the duodenum. The esophagus, stomach and duodenum were normal but there was some mild reactive gastropathy. The ampulla was identified and there was a widely patent sphincterotomy. A small amount of suction yielded bile and some yellow sludge. A cholangiogram was performed and there was pneumobilia with multiple air bubbles identified. The common bile duct was approximately 11 mm with normal filling of the intrahepatic biliary system. A 12 mm sweeping balloon was placed at the hilum and swept through the biliary system twice. This did yield some additional debris but no solid stones. There were no strictures or other abnormalities. The pancreatic duct was not cannulated intentionally. Impression: 1. Minor choledocholithiasis/sludge status post balloon extraction Plan: I will discuss the findings with the patient and family. I do feel that most of his nausea, dyspepsia and functional diarrhea are not related to this presently.
[2020-09-16 13:50] VITALS: BP 177/85; PULSE 68; RESP 18; O2SAT 98
[2020-09-16 14:00] VITALS: BP 186/88; PULSE 77; RESP 18; O2SAT 99
[2020-09-16 14:20] VITALS: BP 172/90; PULSE 78; RESP 18; O2SAT 99
--- NOTE | 2020-09-16 14:22 | P.PN_ITS ---
[facility] [place] Anesthesia Checklist - Structural Data Admitted From: Home Planned Operative Procedure/s: ercp Consent for Planned Operative Procedure(s) Verified: Yes - Additional verifications Anesthesia Reactions: No Hx Blood Transfusions: No Blood Transfusion Reaction: No - Airway Assessment C-Spine Mobility Assessed: Yes TMJ Mobility Assessed: Yes Dentition: Poor Dentition - Neurological Assessment Level of Consciousness: Awake, Alert, Appropriate - Anesthesia Plan Anesthesia Risk discussed: Yes Anesthesia Plan: Verified ASA Class: III Anesthesia Type: MAC [facility] [place] History I have reviewed the patient's past medical history: Yes Medical History: Reports:: Cancer (left kidney), Cerebrovascular Accident, Diabetes Mellitus Type 2, Gastroesophageal Reflux Disease(GERD), Hiatal Hernia, Hyperlipidemia, Hypertension Denies:: Diabetes Mellitus Type 1, Internal Pacemaker, Lung Disease, MRSA, Seizures *Have you ever received a pneumonia vaccine?: No *Have you received a flu vaccine this season?: No Other Medical History: Reports: Cataracts, Other. Denies: Blood Transfusion Reaction Anesthesia experience/problems:: none Laterality Cases: Left: Other, Right: Arthroscopy Knee, Bilateral: Cataract Other Surgeries: Yes: Appendectomy, Cancer Surgery, Cardiac Catheterization, Cholecystectomy, Colonoscopy, Hernia Repair, Other. No: Pacemaker Amputation: No Fractures: No - *Social History Last grade of school completed: Some college Smoking Status: Former smoker Tobacco Type: cigarettes #Yrs smoked (if former smoker): 30 Alcohol Intake: current Alcohol Intake Frequency:: 0-2 drinks per day Substance Use Type: denies use *Occupational Status:: retired Housing: house Household Members: spouse *Travel in the last 8 weeks: None Family Hx:: Diabetes, Hypertension
[2020-09-16 14:53] VITALS: O2SAT 98
== END 2020-09-16 14:20 | disposition home or self-care (01) ==
LOC: OUTP 11:28
PROVIDERS: PCP Emergency Medicine; Visit Provider Internal Medicine Gastroenterology
PROC: (CPT 43264; principal; 2020-09-16 12:30)
DX: Z90.49 Acquired absence of other specified parts of digestive tract (principal); K91.86 Retained cholelithiasis following cholecystectomy
CPT/HCPCS: 43264; 74330; 82962

== ENCOUNTER → 2020-12-05 12:52 | Outpatient (CLI) | payer MEDICARE, OTHER, SELFPAY ==
--- NOTE | 2020-12-05 12:56 | XR_ITS ---
PROCEDURE: XR CERVICAL SPINE 3V CLINICAL INDICATION: neck pain COMPARISON: No exams were available for comparison FINDINGS: Limited three views of the cervical spine demonstrate multilevel degenerative changes with endplate sclerosis, loss of disc height and minor facet joint arthropathy. Anterior osteophyte formation is noted. The C1-2 alignment is unremarkable. No acute fractures or traumatic subluxation. Prevertebral soft tissues and the visualized lung apices are clear. Vascular calcification is noted. IMPRESSION: Degenerative changes of the cervical spine. No acute fractures or traumatic subluxation. Dictated by: Berna Garcia 12/05/2020 14:51 Berna Garcia in [place] 12/05/2020 14:51
--- NOTE | 2020-12-05 12:56 | XR_ITS ---
PROCEDURE: XR LUMBAR SPINE 2-3V CLINICAL INDICATION: back pain COMPARISON: No exams were available for comparison FINDINGS: There is normal lumbar lordosis. Vertebral body heights and alignment are maintained. Multilevel degenerative changes with endplate sclerosis, loss of disc height and facet joint arthropathy is noted, worse in the lower lumbar levels. Bone density is normal. No acute fractures or traumatic subluxation. Multiple surgical clips are noted on the left. Vascular calcification is noted. Paravertebral soft tissues are unremarkable. . IMPRESSION: Degenerative changes of the lumbar spine. No acute fractures or traumatic subluxation. Dictated by: Berna Garcia 12/05/2020 16:28 Berna Garcia in [facility] 12/05/2020 16:28
--- NOTE | 2020-12-05 12:56 | XR_ITS ---
PROCEDURE: XR HIP LT 2-3V W/PELVIS CLINICAL INDICATION: hip pain COMPARISON: No exams were available for comparison FINDINGS: Subchondral sclerosis with mild loss of joint space noted on the left. No acute fractures or dislocations. Bone density is normal. The visualized pelvis demonstrate no focal abnormality. Bilateral sacroiliac joints are unremarkable. Extensive vascular calcification is noted. Surgical clips in the left lower quadrant are partially visualized. IMPRESSION: Early degenerative changes of the left hip joint. No acute fractures or dislocations. Dictated by: Berna Garcia 12/05/2020 14:53 Berna Garcia in [place] 12/05/2020 14:53
== END ==
PROVIDERS: PCP Nurse Practitioner Family; Visit Provider Nurse Practitioner Family
DX: G89.29 Other chronic pain (principal); M54.2 Cervicalgia; M54.5 Low back pain; M25.552 Pain in left hip
CPT/HCPCS: 72040; 72100; 73502

== ENCOUNTER → 2021-02-28 11:07 | Outpatient (CLI) | payer MEDICARE, OTHER, SELFPAY ==
[2021-02-28 12:29] LABS: Basophils % 0.5 % (0.1-2.0); Eosinophils # 0.1 K/mm3 (0.0-0.4); Eosinophils % 1.9 % (0.1-12.0); Hematocrit 36.3 % (42.0-52.0); Hemoglobin 12.6 g/dL (14.1-18.0); Lymphocytes # 0.8 K/mm3 (0.7-4.5); Lymphocytes % 17.4 % (10-50); Mean Corpuscular HGB Conc 34.7 g/dL (31.8-35.4); Mean Corpuscular Hemoglobin 33.8 pg (27.0-31.2); Mean Corpuscular Volume 97.5 fl (80-94); Mean Platelet Volume 7.8 fl (7.4-10.4); Monocytes # 0.3 K/mm3 (0.1-1.0); Monocytes % 5.5 % (1.7-9.3); Neutrophils # 3.5 K/mm3 (1.8-7.8); Neutrophils % 74.7 % (37.0-80.0); Platelet Count 138 K/mm3 (142-424); Red Blood Count 3.72 M/mm3 (4.60-6.20); White Blood Count 4.7 K/mm3 (4.8-10.8)
[2021-02-28 12:41] LABS: Chloride 102 mmol/L (98-107); Potassium 4.5 mmoL/L (3.5-5.1); Sodium 139 mmol/L (136-145)
[2021-02-28 12:43] LABS: Blood Urea Nitrogen 26 mg/dl (9-20); Estimated Glomerular Filt Rate 40 ml/min (>60); GFR (African American) 48 ML/MIN (>60)
[2021-02-28 12:44] LABS: Albumin Level 4.6 g/dl (3.5-5.0); Alkaline Phosphatase 90 U/L (38-126); Anion Gap 15.5 mEq/L (5-15); Aspartate Amino Transferase 18 U/L (17-59); Bilirubin,Total 2.2 mg/dl (0.2-1.3); Calcium 9.2 mg/dl (8.4-10.2); Carbon Dioxide 26 mmol/L (22.0-30.0); Globulin 2.3 g/dL (1.3-3.2); Glucose 102 mg/dl (74-100); Total Protein,Serum 6.9 g/dl (6.3-8.2)
[2021-02-28 12:50] LABS: Alanine Aminotransferase < 4 U/L (12-78)
[2021-02-28 12:54] LABS: NT Pro Brain Natriuretic Pep. 661 pg/mL (0-125)
[2021-02-28 13:43] LABS: Uric Acid 10.3 mg/dl (3.5-8.5)
== END ==
PROVIDERS: Visit Provider Emergency Medicine
DX: E11.9 Type 2 diabetes mellitus without complications (principal); M10.9 Gout, unspecified; I50.9 Heart failure, unspecified
CPT/HCPCS: 36415; 80053; 83880; 84550; 85025

== ENCOUNTER → 2021-03-08 09:09 | Outpatient (CLI) | payer MEDICARE, OTHER, SELFPAY ==
--- NOTE | 2021-03-08 09:10 | CA_ITS ---
APPROVED REPORT EXAM: Comprehensive 2D, Doppler, and color-flow Echocardiogram Haz Tech: Bev Lazar, RCS, RVS Ht: 5 ft 9 in Wt: 203lbs BSA: 2.08 BP: 170/83 mmHg Indications: Suffering from Gout-clearance to discontinue cardiovascular rx therapy, Ex-smoker. Hyperlipidemia, Hypertension/HDD, Parkinson's, Diastolic dysfunction, Hx-CHf 2D Dimensions LVDd 5.49 cm LVEF (Visual) 56.70 % LVDs 3.84 cm LA Volume 81.60 mL LVOT 2.16 cm (M/F) 1.5-2.5 LA Volume Index 39.20 mL/m2 (M/F) 16-34 M-Mode Dimensions RVDd 2.98 cm (0.9-2.6) LA Diam 4.12 cm (1.9-4.0) LVDd 5.67 cm (3.5-5.7) Ao Diam 3.63 cm (2.0-3.7) LVDs 3.58 cm (3.5-5.7) IVSd 1.13 cm (0.6-1.1) PWd 0.64 cm (0.6-1.1) EF (Teich) 66.00% EPSs 0.85 cm FS 36.90% EDV (Teich) 158.10 mL TAPSE 3.36 (<1.7) ESV (Teich) 53.70 mL LV Diastology E Decel Time 200.00 (160-240 msec) E/A Ratio 0.93 MED E' 8.10 (< 7 cm/sec) MED A' 9.70 cm/s E'/MED E' Ratio 11.67 (>14) LAT E' 8.30 (<10 cm/sec) LAT A' 10.40 cm/s E/LAT E' Ratio 11.39 (>14) Aortic Valve LVOT Max 87.00 (70-110 cm/s) LVOT VTI 22.05 cm AoV Peak Silviano. 169.00 (50-130 cm/s) AO Peak GR. 11.40 mmHg AO Mean GR. 5.60 (<5 mmHg) AO VTI 40.40 (18-25 cm) TIM (VTI) 2.00 (2.5-4.5 cm2) Mitral Valve MV A Velocity 101.00 (40-130 cm/s) E/A Ratio 0.93 MV Decel. Time 200.00 (160-240 ms) Pulmonary Valve PV Peak Velocity 90.00 (50-150 cm/s) Tricuspid Valve TR P. Velocity 158.00 cm/s RAP Estimate 10.00 mmHg RVSP 20.00 mmHg Left Ventricle Left atrium is mildly enlarged, left ventricle is normal size, mild concentric left ventricular hypertrophy, visually estimated ejection fraction 55% with no regional wall motion abnormality. Grade 1 diastolic dysfunction seen without tissue Doppler evidence of raise left atrial pressure. Right Ventricle Right atrium and left ventricle are normal size and contractility. Aortic Valve Aortic valve is minimally thickened and fibrosed, there is no aortic stenosis or aortic insufficiency. Mitral Valve Mitral valve is grossly normal, there is trace mitral regurgitation. Tricuspid Valve Tricuspid grossly normal, there is trace tricuspid regurgitation, calculated right ventricular systolic pressure within normal range. Pulmonic Valve Pulmonic valve is poorly visualized. Great Vessels Aortic root is normal size. Pericardium No significant pericardial effusion noted. Conclusion 1. Mildly enlarged left atrium, normal left ventricular size, mild concentric left ventricular hypertrophy, visually estimated ejection fraction 55% with no regional wall motion abnormality, grade 1 diastolic dysfunction seen without tissue Doppler evidence of raise left atrial pressure. 2. Trace mitral and tricuspid regurgitation, calculated right ventricular systolic pressure within normal range. 3. No significant pericardial effusion noted. Electronically signed by : Wilmer Sawant, 03/10/2021 10:12:21
== END ==
PROVIDERS: PCP Nurse Practitioner Family; Visit Provider Urology
DX: C64.2 Malignant neoplasm of left kidney, except renal pelvis (principal); E78.5 Hyperlipidemia, unspecified; G20 Parkinson's disease; I10 Essential (primary) hypertension; M10.9 Gout, unspecified; N28.9 Disorder of kidney and ureter, unspecified; R60.0 Localized edema; Z86.73 Personal history of transient ischemic attack (TIA), and cerebral infarction without residual deficits; Z90.5 Acquired absence of kidney
CPT/HCPCS: 93306

== ENCOUNTER → 2021-03-28 15:44 | Outpatient (CLI) | payer MEDICARE, OTHER, SELFPAY ==
[2021-03-28 16:28] LABS: Chloride 103 mmol/L (98-107); Sodium 139 mmol/L (136-145)
[2021-03-28 16:29] LABS: Potassium 4.6 mmoL/L (3.5-5.1)
[2021-03-28 16:31] LABS: Blood Urea Nitrogen 30 mg/dl (9-20); Estimated Glomerular Filt Rate 37 ml/min (>60); GFR (African American) 45 ML/MIN (>60)
[2021-03-28 16:32] LABS: Anion Gap 12.6 mEq/L (5-15); Calcium 8.9 mg/dl (8.4-10.2); Carbon Dioxide 28 mmol/L (22.0-30.0); Glucose 100 mg/dl (74-100)
== END ==
PROVIDERS: Visit Provider Urology
DX: C64.2 Malignant neoplasm of left kidney, except renal pelvis (principal); E78.5 Hyperlipidemia, unspecified; G20 Parkinson's disease; I10 Essential (primary) hypertension; M10.9 Gout, unspecified; N28.9 Disorder of kidney and ureter, unspecified; R60.0 Localized edema; Z86.73 Personal history of transient ischemic attack (TIA), and cerebral infarction without residual deficits; Z90.5 Acquired absence of kidney
CPT/HCPCS: 36415; 80048

== ENCOUNTER → 2021-04-12 13:55 | Outpatient (CLI) | payer MEDICARE, OTHER, SELFPAY ==
[2021-04-12 13:59] LABS: Microscopic, Urine URINE MICROSCOPIC (MICROSCOPIC)
[2021-04-12 14:23] LABS: Basophils # 0.1 K/mm3 (0-0.2); Eosinophils # 0.1 K/mm3 (0.0-0.4); Eosinophils % 1.1 % (0.1-12.0); Hematocrit 37.6 % (42.0-52.0); Hemoglobin 12.9 g/dL (14.1-18.0); Lymphocytes % 17.9 % (10-50); Mean Corpuscular HGB Conc 34.3 g/dL (31.8-35.4); Mean Corpuscular Hemoglobin 33.5 pg (27.0-31.2); Mean Corpuscular Volume 97.8 fl (80-94); Mean Platelet Volume 8.4 fl (7.4-10.4); Monocytes # 0.3 K/mm3 (0.1-1.0); Monocytes % 4.8 % (1.7-9.3); Neutrophils # 4.2 K/mm3 (1.8-7.8); Neutrophils % 75.2 % (37.0-80.0); Platelet Count 146 K/mm3 (142-424); Red Blood Count 3.85 M/mm3 (4.60-6.20); Red Cell Distribution Width 14.3 % (11.5-17.5); White Blood Count 5.6 K/mm3 (4.8-10.8)
[2021-04-12 14:24] LABS: Appearance,Urine CLEAR (Clear); Blood, Urine TRACE-I (Negative); Color,Urine DK YELLOW (Yellow); Glucose,Urine (UA) Negative (Negative); Ketones,Urine TRACE (Negative); Leukocyte Esterase,Urine Negative (Negative); Nitrate,Urine Negative (Negative); PH,Urine 5.5 (5.0-8.5); Protein,Urine Negative (Negative); Specific Gravity, Urine 1.025 (1.005-1.030); Urobilinogen,Urine 0.2 EU/dl (0.2)
[2021-04-12 14:26] LABS: Bilirubin,Urine 1+ (Negative)
[2021-04-12 14:31] LABS: Squamous Epithelial Cell,Urine Occasional #/hpf (0-5)
[2021-04-12 14:55] LABS: Creatinine,Urine Random 280 mg/dL (Not Estab.)
[2021-04-12 15:17] LABS: Albumin Level 4.5 g/dl (3.5-5.0); Anion Gap 15.7 mEq/L (5-15); Blood Urea Nitrogen 34 mg/dl (9-20); Calcium 9.1 mg/dl (8.4-10.2); Carbon Dioxide 28 mmol/L (22.0-30.0); Chloride 97 mmol/L (98-107); Estimated Glomerular Filt Rate 40 ml/min (>60); GFR (African American) 48 ML/MIN (>60); Glucose 206 mg/dl (74-100); Phosphorous 2.8 mg/dl (2.5-4.5); Potassium 4.7 mmoL/L (3.5-5.1); Sodium 136 mmol/L (136-145)
[2021-04-12 15:29] LABS: Intact Parathyroid Hormone 97.2 pg/mL (7.5-53.5)
[2021-04-12 15:35] LABS: 25-OH Vitamin D, Total 37.3 ng/mL (30-100)
[2021-04-14 15:13] LABS: Calcium, Ionized 5.1 mg/dL (4.5-5.6)
== END ==
PROVIDERS: Visit Provider Internal Medicine Nephrology
DX: N18.30 Chronic kidney disease, stage 3 unspecified (principal)
CPT/HCPCS: 36415; 80069; 81001; 82306; 82330; 82570; 83970; 84155; 85025

== ENCOUNTER → 2021-04-17 13:03 | Outpatient (POV) | payer MEDICARE, OTHER, SELFPAY | PROVIDERS: Visit Provider Internal Medicine Nephrology | DX: Z00.00 Encounter for general adult medical examination without abnormal findings (principal) ==

== ENCOUNTER 2021-05-27 09:20 | Emergency (ER) | payer MEDICARE, OTHER, SELFPAY ==
[2021-05-27] VITALS (8 sets, daily range): BP systolic 123–151; BP diastolic 60–70; PULSE 60–84; RESP 15–18; TEMP 36.8–36.9; O2SAT 95–100; BMI 27.3; BMI 27.8
[2021-05-27 10:01] LABS: Chloride 95 mmol/L (98-107); Sodium 135 mmol/L (136-145)
[2021-05-27 10:02] LABS: Potassium 4.4 mmoL/L (3.5-5.1)
[2021-05-27 10:04] LABS: Albumin Level 4.4 g/dl (3.5-5.0); Albumin/Globulin Ratio 1.8 (1.1-1.8); Alkaline Phosphatase 93 U/L (38-126); Anion Gap 14.4 mEq/L (5-15); Aspartate Amino Transferase 17 U/L (17-59); Bilirubin,Total 1.6 mg/dl (0.2-1.3); Blood Urea Nitrogen 21 mg/dl (9-20); Carbon Dioxide 30 mmol/L (22.0-30.0); Estimated Glomerular Filt Rate 43 ml/min (>60); GFR (African American) 52 ML/MIN (>60); Globulin 2.5 g/dL (1.3-3.2); Total Protein,Serum 6.9 g/dl (6.3-8.2)
[2021-05-27 10:05] LABS: Calcium 9.4 mg/dl (8.4-10.2); Glucose 98 mg/dl (74-100)
[2021-05-27 10:16] LABS: Magnesium 0.9 mg/dl (1.6-2.3)
[2021-05-27 10:16] LABS: Alanine Aminotransferase < 4 U/L (12-78)
--- NOTE | 2021-05-27 10:16 | PC.NURSE ---
DR. HURD NOTIFIED OF CRITICAL MAG LEVEL
[2021-05-27 10:30] LABS: Basophils % 0.8 % (0.1-2.0); Eosinophils # 0.1 K/mm3 (0.0-0.4); Eosinophils % 1.9 % (0.1-12.0); Hematocrit 34.7 % (42.0-52.0); Hemoglobin 11.8 g/dL (14.1-18.0); Lymphocytes # 0.6 K/mm3 (0.7-4.5); Lymphocytes % 17.3 % (10-50); Mean Corpuscular HGB Conc 34.1 g/dL (31.8-35.4); Mean Corpuscular Hemoglobin 33.9 pg (27.0-31.2); Mean Corpuscular Volume 99.5 fl (80-94); Mean Platelet Volume 7.7 fl (7.4-10.4); Monocytes # 0.3 K/mm3 (0.1-1.0); Monocytes % 8.4 % (1.7-9.3); Neutrophils # 2.5 K/mm3 (1.8-7.8); Neutrophils % 71.6 % (37.0-80.0); Platelet Count 155 K/mm3 (142-424); Red Blood Count 3.49 M/mm3 (4.60-6.20); Red Cell Distribution Width 13.6 % (11.5-17.5); White Blood Count 3.5 K/mm3 (4.8-10.8)
--- NOTE | 2021-05-27 10:34 | CT_ITS ---
PROCEDURE INFORMATION: Exam: CT Chest With Contrast; Diagnostic Exam date and time: 05/27/2021 10:34 AM Age: 70 years old Clinical indication: Other: Weight loss; Additional info: 12lb weight loss; Renal cancer HX TECHNIQUE: Imaging protocol: Diagnostic computed tomography of the chest with contrast. Radiation optimization: All CT scans at this facility use at least one of these dose optimization techniques: automated exposure control; mA and/or kV adjustment per patient size (includes targeted exams where dose is matched to clinical indication); or iterative reconstruction. Contrast material: ISOVUE; Contrast volume: 75 ml; Contrast route: IV; COMPARISON: MR ABDOMEN WO/W CON 08/01/2020 8:57 AM FINDINGS: Thyroid: 2.7 cm nodule left lobe of the thyroid 32 Hounsfield units; recommend thyroid ultrasound.. Lungs: Calcified granulomas in the right lower lobe Pleural spaces: Unremarkable. No pneumothorax. No pleural effusion. Heart: Coronary artery calcifications may indicate coronary artery disease. Pulmonary arteries: Linear filling defect in the descending right pulmonary artery consistent with chronic pulmonary embolus. . Filling defects in small branches of the descending right pulmonary artery. Series 4, image 57 and series 4, image 62. Findings consistent with small acute pulmonary emboli.. Aorta: Unremarkable. No aortic aneurysm. Lymph nodes: Unremarkable. No enlarged lymph nodes. Bones/joints: Unremarkable. No acute fracture. Soft tissues: Unremarkable. IMPRESSION: 1. Linear filling defect in the descending right pulmonary artery consistent with chronic pulmonary embolus. . 2. Filling defects in small branches of the descending right pulmonary artery. Series 4, image 57 and series 4, image 62. Findings consistent with small acute pulmonary emboli.. 3. 2.7 cm nodule left lobe of the thyroid 32 Hounsfield units; recommend thyroid ultrasound.. COMMENTS: Consistent with the [employer]'s Incidental Findings Committee white paper (J Am Karishma Radiol 2015): In patients aged 35 years and older with an incidental thyroid nodule equal to or greater than 1.[address], MRI or extrathyroidal US, further evaluation with dedicated thyroid US is recommended for patients with normal life expectancy and without comorbidities. For smaller nodules without suspicious features, no further evaluation or follow up is recommended.
--- NOTE | 2021-05-27 10:34 | CT_ITS ---
PROCEDURE INFORMATION: Exam: CT Abdomen And Pelvis With Contrast Exam date and time: 05/27/2021 10:34 AM Age: 70 years old Clinical indication: Other: Weight loss; Prior surgery; Surgery type: Left kidney , gallbladder, appendix; Additional info: 12lb weight loss; Renal cancer HX TECHNIQUE: Imaging protocol: Computed tomography of the abdomen and pelvis with contrast. Radiation optimization: All CT scans at this facility use at least one of these dose optimization techniques: automated exposure control; mA and/or kV adjustment per patient size (includes targeted exams where dose is matched to clinical indication); or iterative reconstruction. Contrast material: ISOVUE; Contrast volume: 75 ml; Contrast route: IV; COMPARISON: MR ABDOMEN WO/W CON 08/01/2020 8:57 AM FINDINGS: Liver: Pneumobilia in the liver. Air in the common duct.. Gallbladder and bile ducts: Cholecystectomy Pancreas: Pancreatic atrophy Spleen: Splenomegaly 16.7 cm.. Adrenal glands: Normal. No mass. Kidneys and ureters: 19 mm mass lateral right kidney 47 Hounsfield units. Additional 16 mm mass lower pole right kidney 22 Hounsfield units. Differential includes renal cell carcinoma.. Left nephrectomy. 4.7 cm simple cyst lower pole right kidney. . No follow-up imaging recommended . Stomach and bowel: Unremarkable. No obstruction. No mucosal thickening. Appendix: No evidence of appendicitis. Intraperitoneal space: Unremarkable. No free air. No significant fluid collection. Vasculature: Unremarkable. No abdominal aortic aneurysm. Lymph nodes: Unremarkable. No enlarged lymph nodes. Urinary bladder: Unremarkable as visualized. Reproductive: The prostate is enlarged, greater than 5 cm. Recommend urology consult. Bones/joints: Unremarkable. No acute fracture. Soft tissues: Unremarkable. IMPRESSION: 1. 19 mm mass lateral right kidney 47 Hounsfield units. Additional 16 mm mass lower pole right kidney 22 Hounsfield units. Differential includes renal cell carcinoma.. 2. Left nephrectomy. 3. The prostate is enlarged, greater than 5 cm. Recommend urology consult. 4. Splenomegaly 16.7 cm.. COMMENTS: Consistent with the [employer]'s Incidental Findings Committee white paper (J Am Karishma Radiol 2018): Any incidental renal lesion less than 1 cm or classified as too small to characterize, or any incidental cystic renal lesion characterized as simple-appearing, is likely benign. No follow-up imaging is recommended for these lesions per consensus recommendations based on imaging criteria. THIS REPORT CONTAINS FINDINGS THAT MAY BE CRITICAL TO PATIENT CARE. The findings were verbally communicated via telephone conference with Tanisha Loo at 12:54 PM EDT on 05/27/2021. The findings were acknowledged and understood.
[2021-05-27 11:46] LABS: Microscopic, Urine URINE MICROSCOPIC (MICROSCOPIC)
[2021-05-27 12:40] LABS: Appearance,Urine CLEAR (Clear); Bilirubin,Urine Negative (Negative); Blood, Urine Negative (Negative); Color,Urine YELLOW (Yellow); Glucose,Urine (UA) Negative (Negative); Ketones,Urine Negative (Negative); Leukocyte Esterase,Urine Negative (Negative); Nitrate,Urine Negative (Negative); Protein,Urine Negative (Negative); Urobilinogen,Urine 0.2 EU/dl (0.2)
--- NOTE | 2021-05-27 12:52 | PC.NURSE ---
VRAD on phone with physician
[2021-05-27 13:01] LABS: Squamous Epithelial Cell,Urine Occasional #/hpf (0-5)
--- NOTE | 2021-05-27 13:12 | PC.NURSE ---
speaking with Dr. Garcia
[2021-05-27 13:31] LABS: Activated Partial Thrombo Time 30.3 seconds (22.8-30.6)
--- NOTE | 2021-05-27 13:34 | PC.NURSE ---
Notified lab we had added troponin onto work up. advises after troponin comes back she would like to speak with Dr. Du
[2021-05-27 13:44] LABS: Troponin I < 0.01 ng/ml (0.00-0.034)
--- NOTE | 2021-05-27 13:56 | PC.NURSE ---
speaking with Dr. Du
--- NOTE | 2021-05-28 08:08 | HMH.EDGENADL ---
ED Disposition Clinical Impression: Pulmonary emboli Renal malignant neoplasm Qualifiers: Laterality: right Qualified Code(s): C64.1 - Malignant neoplasm of right kidney, except renal pelvis Disposition: Home, Self-Care Condition on Discharge: Good Instructions: Pulmonary Embolism Additional Instructions: Turn to the emergency department for severe respiratory distress, feeling like you are going to pass out, large amount of bleeding, or inability to eat or drink. Prescriptions: Rivaroxaban [Xarelto 15mg tablet] 15 mg PO BID 21 Days tab Prescription Printed Referrals: Skyler Garcia MD [Primary Care Provider] - 05/29/21 10:00 am Mitch Du MD [Staff Physician] - 05/31/21 11:00 am (for pulmonary emboli) - Critical Care Critical Care Time: No Attestation: On 05/27/21, the high probability of a clinically significant, sudden or life threatening deterioration of the following system(s) required my full and direct attention, intervention and personal management. The time I documented below is in addition to time spent performing reported procedures but includes the following listed in this critical care notation. Medical Decision Making - Medical Records Medical records reviewed: Yes: I reviewed the patient's medical records. - Antoine Inquiry Pt receiving controlled substance: No Vital Signs: 05/27/21 09:22 05/27/21 10:01 05/27/21 10:30 Temperature 98.5 F Temperature Source Oral Pulse Rate 62 60 Pulse Rate [Right] 71 Respiratory Rate 16 18 17 Blood Pressure 123/63 129/64 Blood Pressure [Right Arm] 149/70 H Blood Pressure Mean 86 85 Blood Pressure Mean [Right Arm] 96 Blood Pressure Source Blood Pressure Source [Right Arm] Automatic Cuff Blood Pressure Position Blood Pressure Position [Right Arm] Sitting 02 Sat by Pulse Oximetry 95 95 97 Oxygen Delivery Method Room Air 05/27/21 11:01 05/27/21 12:25 05/27/21 12:30 Temperature Temperature Source Pulse Rate 60 60 69 Pulse Rate [Right] Respiratory Rate 16 15 17 Blood Pressure 142/65 H 151/68 H 136/63 Blood Pressure [Right Arm] Blood Pressure Mean 78 85 77 Blood Pressure Mean [Right Arm] Blood Pressure Source Blood Pressure Source [Right Arm] Blood Pressure Position Blood Pressure Position [Right Arm] 02 Sat by Pulse Oximetry 97 96 100 Oxygen Delivery Method 05/27/21 13:00 05/27/21 15:24 Temperature 98.2 F Temperature Source Oral Pulse Rate 68 84 Pulse Rate [Right] Respiratory Rate 18 16 Blood Pressure 135/69 134/60 Blood Pressure [Right Arm] Blood Pressure Mean 79 Blood Pressure Mean [Right Arm] Blood Pressure Source Automatic Cuff Blood Pressure Source [Right Arm] Blood Pressure Position Sitting Blood Pressure Position [Right Arm] 02 Sat by Pulse Oximetry 100 Oxygen Delivery Method Room Air - Lab Data Lab Results 05/27/21 09:08: Magnesium 0.9 L 05/27/21 09:40: Urine Color Yellow, Urine Appearance Clear, Urine pH 6.0, Ur Specific [place] 1.010, Urine Protein Negative, Urine Glucose (UA) Negative, Urine Ketones Negative, Urine Blood Negative, Urine Nitrate Negative, Urine Bilirubin Negative, Urine Urobilinogen 0.2, Ur Leukocyte Esterase Negative, Urine RBC None, Urine WBC None, Ur Squamous Epith Cells Occasional, Urine Bacteria None 05/27/21 09:40: WBC 3.5 L, RBC 3.49 L, Hgb 11.8 L, Hct 34.7 L, MCV 99.5 H, MCH 33.9 H, MCHC 34.1, RDW 13.6, Plt Count 155, MPV 7.7, Neut % (Auto) 71.6, Lymph % (Auto) 17.3, [place] % (Auto) 8.4, Eos % (Auto) 1.9, Baso % (Auto) 0.8, Neut # (Auto) 2.5, Lymph # (Auto) 0.6 L, [place] # (Auto) 0.3, Eos # (Auto) 0.1, Baso # (Auto) 0.0 05/27/21 09:40: Sodium 135 L, Potassium 4.4, Chloride 95 L, Carbon Dioxide 30, Anion Gap 14.4, BUN 21 H, Creatinine 1.60 H, Estimated GFR 43 L, Est GFR ( Amer) 52 L, Glucose 98, Calcium 9.4, Total Bilirubin 1.6 H, AST 17, ALT < 4 L, Alkaline Phosphatase 93, Total Protein 6.9, Albumin 4.4, Globulin 2.5,
== END 2021-05-27 15:26 | disposition home or self-care (01) ==
PROVIDERS: Emergency Provider Emergency Medicine; PCP Emergency Medicine
DX: I26.99 Other pulmonary embolism without acute cor pulmonale (principal); C64.1 Malignant neoplasm of right kidney, except renal pelvis; I10 Essential (primary) hypertension; E78.5 Hyperlipidemia, unspecified; K21.9 Gastro-esophageal reflux disease without esophagitis; E11.9 Type 2 diabetes mellitus without complications; Z86.73 Personal history of transient ischemic attack (TIA), and cerebral infarction without residual deficits; Z87.891 Personal history of nicotine dependence; D69.6 Thrombocytopenia, unspecified
CPT/HCPCS: 71260; 74177; 80053; 81001; 83605; 83735; 84484; 85025; 85730; 96365; 96366; 96372; 99283; Q9967

== ENCOUNTER → 2021-05-31 10:33 | Outpatient (CLI) | payer MEDICARE, OTHER, SELFPAY ==
--- NOTE | 2021-05-31 10:33 | MR_ITS ---
PROCEDURE: MR ABDOMEN WO/W CON CLINICAL INDICATION: renal mass COMPARISON: US RETROPCM US kidney retroperitoneal comp from 05/19/[address] abdomen pelvis wo con from 09/13/2018 US GB US gallbladder from 09/15/2018 MR MR ABDOMEN WO/W CON from 08/01/[address] ABDOMEN PELVIS W CON from 05/27/2021 TECHNIQUE: Routine multiplanar multi echo sequences are performed without gadolinium enhancement. FINDINGS: There has been a prior left nephrectomy. MRI performed of the kidneys without and with contrast for evaluation indeterminate right renal nodule. Motion artifact somewhat obscures fine detail. There is a 15 mm cyst in the lower pole of the right kidney and a larger exophytic 42 mm cyst in the lower pole similar to the previous exam. The larger cyst does contain some gravity dependent debris. In the upper pole anteriorly and laterally there is a 17 mm nodule which is isointense to renal parenchyma on the T1 weighted images and becomes hyperintense on T2. This nodule is not as hyperintense as the previously described cyst in the lower pole however, the nodule does not demonstrate any contrast enhancement there is no significant change compared to 08/01/2020exam exam. This likely represents a complex cyst as opposed to a neoplastic process. There is splenomegaly. There has been a prior cholecystectomy there is mild biliary dilatation. Post nephrectomy changes are noted on the left. Decreased T2 signal noted in the biliary tree and common bile duct consistent with pneumobilia. IMPRESSION: Indeterminate right renal nodule in the upper pole anteriorly and laterally is felt represent a complex cyst as opposed to a solid neoplasm with no enhancement and no significant change from 08/01/2020. Continued six-month follow-up suggested to confirm stability. Splenomegaly Benign-appearing renal cysts on the right inferiorly. Prior left nephrectomy Dictated by: Alphonso Aleman MD 05/31/2021 14:35 Alphonso Aleman MD in [place] 05/31/2021 14:35
== END ==
PROVIDERS: PCP Emergency Medicine; Visit Provider Emergency Medicine
DX: N28.89 Other specified disorders of kidney and ureter (principal)
CPT/HCPCS: 74183; A9576

== ENCOUNTER → 2021-06-02 17:21 | Outpatient (CLI) | payer MEDICARE, OTHER, SELFPAY ==
[2021-06-02 17:27] LABS: Adenovirus,PCR Not Detected (NotDetected); Bordetella Pertussis Not Detected (NotDetected); Chlamydophila Pneumoniae, PCR Not Detected (NotDetected); Coronavirus 19, PCR Not Detected (NotDetected); Coronavirus 229E Not Detected (NotDetected); Coronavirus NL63 Not Detected (NotDetected); Coronavirus OC43 Not Detected (NotDetected); Coronovirus HKU1,PCR Not Detected (NotDetected); Human Metapneumovirus Not Detected (NotDetected); Influenza A, PCR Not Detected (NotDetected); Influenza AH1, 2009 Not Detected (NotDetected); Influenza AH1, PCR Not Detected (NotDetected); Influenza AH3,PCR Not Detected (NotDetected); Influenza B, PCR Not Detected (NotDetected); Mycoplasma Pneumoniae, PCR Not Detected (NotDetected); Parainfluenza 1, PCR Not Detected (NotDetected); Parainfluenza 2, PCR Not Detected (NotDetected); Parainfluenza 3, PCR Not Detected (NotDetected); Parainfluenza 4, PCR Not Detected (NotDetected); Respiratory Syncytial Virus Not Detected (NotDetected); Rhinovirus/Enterovirus Not Detected (NotDetected)
[2021-06-02 19:09] LABS: Basophils % 0.8 % (0.1-2.0); Eosinophils # 0.1 K/mm3 (0.0-0.4); Eosinophils % 2.5 % (0.1-12.0); Hematocrit 33.3 % (42.0-52.0); Hemoglobin 11.3 g/dL (14.1-18.0); Lymphocytes # 0.8 K/mm3 (0.7-4.5); Lymphocytes % 14.8 % (10-50); Mean Corpuscular HGB Conc 34.1 g/dL (31.8-35.4); Mean Corpuscular Volume 96.8 fl (80-94); Mean Platelet Volume 9.2 fl (7.4-10.4); Monocytes # 0.3 K/mm3 (0.1-1.0); Monocytes % 5.8 % (1.7-9.3); Neutrophils % 76.1 % (37.0-80.0); Platelet Count 241 K/mm3 (142-424); Red Blood Count 3.44 M/mm3 (4.60-6.20); Red Cell Distribution Width 13.7 % (11.5-17.5); White Blood Count 5.2 K/mm3 (4.8-10.8)
[2021-06-02 19:17] LABS: Alanine Aminotransferase 4 U/L (12-78); Albumin Level 3.9 g/dl (3.5-5.0); Albumin/Globulin Ratio 1.6 (1.1-1.8); Alkaline Phosphatase 91 U/L (38-126); Anion Gap 15.6 mEq/L (5-15); Aspartate Amino Transferase 16 U/L (17-59); Bilirubin,Total 0.9 mg/dl (0.2-1.3); Blood Urea Nitrogen 23 mg/dl (9-20); Calcium 9.4 mg/dl (8.4-10.2); Carbon Dioxide 29 mmol/L (22.0-30.0); Chloride 94 mmol/L (98-107); Estimated Glomerular Filt Rate 46 ml/min (>60); GFR (African American) 56 ML/MIN (>60); Globulin 2.5 g/dL (1.3-3.2); Glucose 110 mg/dl (74-100); Magnesium 1.2 mg/dl (1.6-2.3); Phosphorous 2.9 mg/dl (2.5-4.5); Potassium 4.6 mmoL/L (3.5-5.1); Sodium 134 mmol/L (136-145); Total Protein,Serum 6.4 g/dl (6.3-8.2)
[2021-06-02 19:23] LABS: C-Reactive Protein 11.3 mg/L (0-4)
[2021-06-02 19:30] LABS: Intact Parathyroid Hormone 93.5 pg/mL (7.5-53.5)
[2021-06-02 19:34] LABS: 25-OH Vitamin D, Total 34.9 ng/mL (30-100)
[2021-06-02 19:35] LABS: Free T4 (Free Thyroxine) 1.32 ng/dl (0.78-2.19)
[2021-06-02 19:48] LABS: Thyroid Stimulating Hormone 3.34 uIU/mL (0.465-4.68)
[2021-06-02 19:50] LABS: Erythrocyte Sedimentation Rate 28 mm/hr (0-20)
== END ==
PROVIDERS: Visit Provider Emergency Medicine
DX: C64.9 Malignant neoplasm of unspecified kidney, except renal pelvis (principal); D64.9 Anemia, unspecified; E11.9 Type 2 diabetes mellitus without complications; I10 Essential (primary) hypertension; R70.0 Elevated erythrocyte sedimentation rate; R79.82 Elevated C-reactive protein (CRP); U07.1 COVID-19; E55.9 Vitamin D deficiency, unspecified; R09.89 Other specified symptoms and signs involving the circulatory and respiratory systems; I26.99 Other pulmonary embolism without acute cor pulmonale
CPT/HCPCS: 80053; 82306; 83735; 83970; 84100; 84439; 84443; 85025; 85651; 86140; 87486; 87581; 87632; 87798; C9803; U0003; U0005

== ENCOUNTER → 2021-07-21 12:51 | Outpatient (CLI) | payer MEDICARE, OTHER, SELFPAY | PROVIDERS: Visit Provider Emergency Medicine | DX: M10.9 Gout, unspecified (principal) | CPT/HCPCS: 84550 ==

== ENCOUNTER → 2021-09-27 10:46 | Outpatient (CLI) | payer MEDICARE, OTHER, SELFPAY ==
[2021-09-27 11:15] LABS: Basophils % 0.4 % (0.1-2.0); Eosinophils # 0.1 K/mm3 (0.0-0.4); Eosinophils % 1.7 % (0.1-12.0); Hematocrit 36.9 % (42.0-52.0); Hemoglobin 12.2 g/dL (14.1-18.0); Lymphocytes # 1.2 K/mm3 (0.7-4.5); Lymphocytes % 19.2 % (10-50); Mean Corpuscular HGB Conc 32.9 g/dL (31.8-35.4); Mean Corpuscular Volume 103.1 fl (80-94); Mean Platelet Volume 8.2 fl (7.4-10.4); Monocytes # 0.3 K/mm3 (0.1-1.0); Neutrophils # 4.6 K/mm3 (1.8-7.8); Neutrophils % 73.6 % (37.0-80.0); Platelet Count 163 K/mm3 (142-424); Red Blood Count 3.58 M/mm3 (4.60-6.20); Red Cell Distribution Width 14.3 % (11.5-17.5); White Blood Count 6.2 K/mm3 (4.8-10.8)
[2021-09-27 12:47] LABS: Free T4 (Free Thyroxine) 1.25 ng/dl (0.78-2.19)
[2021-09-27 12:50] LABS: 25-OH Vitamin D, Total 36.4 ng/mL (30-100)
[2021-09-27 14:43] LABS: Albumin Level 4.5 g/dl (3.5-5.0); Albumin/Globulin Ratio 2.3 (1.1-1.8); Alkaline Phosphatase 78 U/L (38-126); Anion Gap 13.7 mEq/L (5-15); Aspartate Amino Transferase 26 U/L (17-59); Bilirubin,Total 1.1 mg/dl (0.2-1.3); Blood Urea Nitrogen 31 mg/dl (9-20); Calcium 9.2 mg/dl (8.4-10.2); Carbon Dioxide 29 mmol/L (22.0-30.0); Chloride 99 mmol/L (98-107); Chol/HDL Ratio 1.6 (1-3.5); Cholesterol 135 mg/dl (140-200); Estimated Glomerular Filt Rate 50 ml/min (>60); GFR (African American) 60 ML/MIN (>60); Glucose 108 mg/dl (74-100); HDL Cholesterol 82 mg/dl (40-60); Potassium 4.7 mmoL/L (3.5-5.1); Sodium 137 mmol/L (136-145); Total Protein,Serum 6.5 g/dl (6.3-8.2); Triglycerides 68 mg/dl (30-150); Uric Acid 6.5 mg/dl (3.5-8.5); VLDL Cholesterol 14 mg/dL (0-40)
[2021-09-27 14:46] LABS: Alanine Aminotransferase < 4 U/L (12-78)
[2021-09-27 14:54] LABS: Direct LDL Cholesterol 35.91 mg/dL (100-129)
[2021-09-27 15:17] LABS: Prostate Specific Ag Screen 2.2 ng/ml (0.0-4.0)
== END ==
PROVIDERS: PCP Emergency Medicine; Visit Provider Emergency Medicine
DX: E55.9 Vitamin D deficiency, unspecified (principal); R53.83 Other fatigue; N17.9 Acute kidney failure, unspecified; Z12.5 Encounter for screening for malignant neoplasm of prostate; M10.9 Gout, unspecified; E78.5 Hyperlipidemia, unspecified
CPT/HCPCS: 36415; 80053; 80061; 82306; 84439; 84443; 84550; 85025; G0103

== ENCOUNTER → 2021-10-30 14:38 | Outpatient (CLI) | payer MEDICARE, OTHER, SELFPAY ==
[2021-10-30 15:54] LABS: Uric Acid 6.1 mg/dl (3.5-8.5)
== END ==
PROVIDERS: PCP Emergency Medicine; Visit Provider Internal Medicine Rheumatology
DX: M1A.9XX1 Chronic gout, unspecified, with tophus (tophi) (principal)
CPT/HCPCS: 36415; 84550

== ENCOUNTER → 2021-11-01 13:07 | Outpatient (CLI) | payer MEDICARE, OTHER, SELFPAY ==
[2021-11-01 13:14] LABS: Microscopic, Urine URINE MICROSCOPIC (MICROSCOPIC)
[2021-11-01 14:06] LABS: Hematocrit 36.7 % (42.0-52.0); Hemoglobin 11.9 g/dL (14.1-18.0); Mean Corpuscular HGB Conc 32.3 g/dL (31.8-35.4); Mean Corpuscular Hemoglobin 33.9 pg (27.0-31.2); Platelet Count 135 K/mm3 (142-424); Red Cell Distribution Width 14.1 % (11.5-17.5); White Blood Count 4.7 K/mm3 (4.8-10.8)
[2021-11-01 14:12] LABS: Chloride 99 mmol/L (98-107); Potassium 4.2 mmoL/L (3.5-5.1); Sodium 134 mmol/L (136-145)
[2021-11-01 14:13] LABS: Albumin Level 4.7 g/dl (3.5-5.0)
[2021-11-01 14:15] LABS: Anion Gap 10.2 mEq/L (5-15); Blood Urea Nitrogen 23 mg/dl (9-20); Carbon Dioxide 29 mmol/L (22.0-30.0); Estimated Glomerular Filt Rate 50 ml/min (>60); GFR (African American) 60 ML/MIN (>60)
[2021-11-01 14:16] LABS: Calcium 8.9 mg/dl (8.4-10.2); Glucose 120 mg/dl (74-100); Phosphorous 3.1 mg/dl (2.5-4.5)
[2021-11-01 14:32] LABS: Appearance,Urine CLEAR (Clear); Bilirubin,Urine Negative (Negative); Blood, Urine 1+ (Negative); Color,Urine YELLOW (Yellow); Glucose,Urine (UA) Negative (Negative); Ketones,Urine Negative (Negative); Leukocyte Esterase,Urine Negative (Negative); Nitrate,Urine Negative (Negative); Protein,Urine 1+ (Negative); Urobilinogen,Urine 0.2 EU/dl (0.2)
[2021-11-01 14:54] LABS: Squamous Epithelial Cell,Urine Occasional #/hpf (0-5)
[2021-11-01 19:18] LABS: Creatinine,Urine Random 130 mg/dL (Not Estab.)
== END ==
PROVIDERS: Visit Provider Internal Medicine Nephrology
DX: N18.32 Chronic kidney disease, stage 3b (principal)
CPT/HCPCS: 36415; 80069; 81001; 82570; 84155; 85014; 85018; 85048; 85049

== ENCOUNTER → 2021-11-09 12:31 | Outpatient (POV) | payer MEDICARE, OTHER, SELFPAY | PROVIDERS: Visit Provider Internal Medicine Nephrology | DX: Z00.00 Encounter for general adult medical examination without abnormal findings (principal) ==

== ENCOUNTER 2021-12-08 15:41 | Emergency (ER) | payer MEDICARE, OTHER, SELFPAY ==
[2021-12-08 15:41] VITALS: BP 151/80; PULSE 93; RESP 18; O2SAT 100; BMI 26.6
[2021-12-08 15:48] VITALS: BP 151/80; PULSE 90; RESP 16; O2SAT 100
[2021-12-08 16:00] VITALS: BP 148/79; PULSE 84; RESP 21; O2SAT 99
--- NOTE | 2021-12-08 16:18 | HMH.EDGENADL ---
ED Disposition Clinical Impression: Epistaxis Disposition: Home, Self-Care Condition on Discharge: Good Instructions: DI for Nosebleed Additional Instructions: Use Afrin spray, 1 spray in each nostril twice a day for 3 days. Additional instructions for NOSE BLEED: Avoid blowing or rubbing nose. Avoid straining. Avoid bending over at the waist. If nosebleed starts again, squeeze your nostrils together with thumb and forefinger for 5 minutes. If unable to stop the bleeding, return to the emergency department. Referrals: Skyler Garcia MD [Primary Care Provider] - - Critical Care Critical Care Time: No Attestation: On 12/08/21, the high probability of a clinically significant, sudden or life threatening deterioration of the following system(s) required my full and direct attention, intervention and personal management. The time I documented below is in addition to time spent performing reported procedures but includes the following listed in this critical care notation. Medical Decision Making - Antoine Inquiry Pt receiving controlled substance: No Vital Signs: 12/08/21 15:41 12/08/21 15:48 12/08/21 16:00 Pulse Rate 90 84 Pulse Rate [Left Radial] 93 H Respiratory Rate 18 16 21 Blood Pressure 151/80 H 148/79 H Blood Pressure [Left Arm] 151/80 H Blood Pressure Mean 109 102 Blood Pressure Mean [Left Arm] 103 Blood Pressure Source [Left Arm] Automatic Cuff Blood Pressure Position [Left Arm] Sitting 02 Sat by Pulse Oximetry 100 100 99 Oxygen Delivery Method Room Air 12/08/21 16:30 Pulse Rate 85 Pulse Rate [Left Radial] Respiratory Rate 16 Blood Pressure 160/76 H Blood Pressure [Left Arm] Blood Pressure Mean 92 Blood Pressure Mean [Left Arm] Blood Pressure Source [Left Arm] Blood Pressure Position [Left Arm] 02 Sat by Pulse Oximetry 98 Oxygen Delivery Method - Reevaluation(s) Time: 17:03 Reevaluation #1: No bleeding General Adult HPI - General Chief complaint: Epistaxis Stated complaint: constant nose bleed Time Seen by Provider: 12/08/21 16:18 Mode of Arrival: Ambulatory Limitations: No Limitations Description of Symptoms (Recalled from ER Triage Doc. by RN): Pt reports nose bleed from L nare that began approx 1130 this morning. Pt reports he blew his nose and it began bleeding. Pt reports in on xarelto -hx of DVT. - History of Present Illness HPI narrative: Patient has a history of recurrent nosebleeds. He was started on Xarelto several months ago for pulmonary emboli and since then has had frequent nosebleeds. He stopped taking Xarelto by himself because of the nosebleeds for a couple of days, but his primary care provider, Dr. Garcia, told him to restart it. He has not seen an ENT doctor for his nosebleeds. However he has seen ear nose and throat in the past and had reconstructive surgery on his nose, but states that it did not work and his nose is still bowed and he has had problems with nosebleeds since then. He has had a left-sided nosebleed since about 1130. - Related Data Home Medications Medication Instructions Recorded Confirmed carbidopa 25 mg-levodopa 100 mg 2 tab PO TID tab 02/28/21 11/27/21 tablet metoprolol tartrate 25 mg tablet 25 mg PO BID tab 02/28/21 11/27/21 pantoprazole 40 mg tablet,delayed 40 mg PO BID tab 02/28/21 11/27/21 release pioglitazone 30 mg tablet 30 mg PO DAILY tab 02/28/21 11/27/21 simvastatin 20 mg tablet 20 mg PO HS tab 02/28/21 11/27/21 furosemide 40 mg tablet 40 mg PO DAILY tab 11/21/21 11/27/21 Previous Rx's Medication Instructions Recorded allopurinol 100 mg tablet 50 mg PO DAILY 90 Days #45 tab 09/29/21 folic acid 1 mg tablet 1 mg PO DAILY #90 tab 09/29/21 ondansetron HCl 4 mg tablet 4 mg PO Q8H PRN #30 tab 09/29/21 promethazine 25 mg tablet 25 mg PO Q6H PRN #30 tab 09/29/21 rivaroxaban 20 mg tablet 20 mg PO DAILY #30 tab 11/21/21 hydrocodone 7.5 mg-acetaminophen 1 tab PO QID #12
[2021-12-08 16:30] VITALS: BP 160/76; PULSE 85; RESP 16; O2SAT 98
[2021-12-08 17:00] VITALS: BP 156/86; PULSE 81; RESP 16; O2SAT 99
[2021-12-08 17:13] VITALS: BP 156/86; PULSE 81; RESP 18; TEMP 36.8; O2SAT 98
== END 2021-12-08 17:18 | disposition home or self-care (01) ==
PROVIDERS: Emergency Provider Emergency Medicine; PCP Emergency Medicine
DX: R04.0 Epistaxis (principal); E11.9 Type 2 diabetes mellitus without complications; K21.9 Gastro-esophageal reflux disease without esophagitis; I10 Essential (primary) hypertension; E78.5 Hyperlipidemia, unspecified; Z87.891 Personal history of nicotine dependence; Z79.899 Other long term (current) drug therapy
CPT/HCPCS: 30901; 99283

== ENCOUNTER → 2022-05-07 14:12 | Outpatient (CLI) | payer MEDICARE, OTHER, SELFPAY ==
[2022-05-07 14:23] LABS: Microscopic, Urine URINE MICROSCOPIC (MICROSCOPIC)
[2022-05-07 15:16] LABS: Hematocrit 38.3 % (42.0-52.0); Mean Corpuscular HGB Conc 31.3 g/dL (31.8-35.4); Mean Corpuscular Hemoglobin 32.5 pg (27.0-31.2); Mean Corpuscular Volume 103.7 fl (80-94); Platelet Count 137 K/mm3 (142-424); Red Blood Count 3.69 M/mm3 (4.60-6.20); Red Cell Distribution Width 14.3 % (11.5-17.5); White Blood Count 6.5 K/mm3 (4.8-10.8)
[2022-05-07 16:31] LABS: 25-OH Vitamin D, Total 42.9 ng/mL (30-100)
[2022-05-07 18:27] LABS: Albumin Level 4.4 g/dl (3.5-5.0); Anion Gap 11.8 mEq/L (5-15); Blood Urea Nitrogen 42 mg/dl (9-20); Calcium 9.8 mg/dl (8.4-10.2); Carbon Dioxide 29 mmol/L (22.0-30.0); Chloride 99 mmol/L (98-107); Estimated Glomerular Filt Rate 33 ml/min (>60); GFR (African American) 40 ML/MIN (>60); Glucose 112 mg/dl (74-100); Phosphorous 3.5 mg/dl (2.5-4.5); Potassium 3.8 mmoL/L (3.5-5.1); Sodium 136 mmol/L (136-145)
[2022-05-07 18:37] LABS: Intact Parathyroid Hormone 135.7 pg/mL (7.5-53.5)
[2022-05-07 19:02] LABS: Appearance,Urine CLEAR (Clear); Bilirubin,Urine Negative (Negative); Blood, Urine Negative (Negative); Color,Urine YELLOW (Yellow); Glucose,Urine (UA) Negative (Negative); Ketones,Urine Negative (Negative); Leukocyte Esterase,Urine 2+ (Negative); Nitrate,Urine Negative (Negative); Protein,Urine Negative (Negative); Specific Gravity, Urine 1.025 (1.005-1.030); Urobilinogen,Urine 0.2 EU/dl (0.2)
[2022-05-07 19:59] LABS: Bacteria,Urine 2+ /lpf; RBC,Urine Occasional #/hpf (0-3); Squamous Epithelial Cell,Urine Occasional #/hpf (0-5); WBC,Urine 20-50 #/hpf (0-3)
[2022-05-07 20:33] LABS: Creatinine,Urine Random 86 mg/dL (Not Estab.)
== END ==
PROVIDERS: PCP Emergency Medicine; Visit Provider Internal Medicine Nephrology
DX: N18.30 Chronic kidney disease, stage 3 unspecified (principal); R82.90 Unspecified abnormal findings in urine
CPT/HCPCS: 36415; 80069; 81001; 82306; 82570; 83970; 84155; 85014; 85018; 85048; 85049; 87086

== ENCOUNTER → 2022-05-10 14:53 | Outpatient (POV) | payer MEDICARE, OTHER, SELFPAY | PROVIDERS: Visit Provider Internal Medicine Nephrology | DX: Z00.00 Encounter for general adult medical examination without abnormal findings (principal) ==

== ENCOUNTER → 2022-05-17 15:03 | Outpatient (CLI) | payer MEDICARE, OTHER, SELFPAY ==
[2022-05-17 16:11] LABS: Blood Urea Nitrogen 37 mg/dl (9-20); Estimated Glomerular Filt Rate 35 ml/min (>60); GFR (African American) 42 ML/MIN (>60)
== END ==
PROVIDERS: PCP Emergency Medicine; Visit Provider Physician Assistant
DX: E78.49 Other hyperlipidemia (principal); I10 Essential (primary) hypertension; I26.99 Other pulmonary embolism without acute cor pulmonale
CPT/HCPCS: 36415; 82565; 84520

== ENCOUNTER → 2022-08-16 14:21 | Outpatient (CLI) | payer MEDICARE, OTHER, SELFPAY ==
[2022-08-16 14:47] LABS: Microscopic, Urine URINE MICROSCOPIC (MICROSCOPIC)
[2022-08-16 15:17] LABS: Hematocrit 36.3 % (42.0-52.0); Hemoglobin 11.7 g/dL (14.1-18.0); Mean Corpuscular HGB Conc 32.2 g/dL (31.8-35.4); Mean Corpuscular Volume 99.6 fl (80-94); Platelet Count 119 K/mm3 (142-424); Red Blood Count 3.65 M/mm3 (4.60-6.20); Red Cell Distribution Width 14.4 % (11.5-17.5); White Blood Count 4.9 K/mm3 (4.8-10.8)
[2022-08-16 15:21] LABS: Appearance,Urine CLEAR (Clear); Blood, Urine 1+ (Negative); Color,Urine YELLOW (Yellow); Glucose,Urine (UA) Negative (Negative); Ketones,Urine TRACE (Negative); Leukocyte Esterase,Urine 2+ (Negative); Nitrate,Urine Negative (Negative); PH,Urine 5.5 (5.0-8.5); Protein,Urine Negative (Negative)
[2022-08-16 15:30] LABS: Bilirubin,Urine 1+ (Negative); Creatinine,Urine Random 203 mg/dL (Not Estab.)
[2022-08-16 15:37] LABS: Bacteria,Urine Trace /lpf; RBC,Urine Occasional #/hpf (0-3); Squamous Epithelial Cell,Urine Occasional #/hpf (0-5); White Blood Cell Casts,Urine Occasional #/lpf (0)
[2022-08-16 15:47] LABS: Albumin Level 4.5 g/dl (3.5-5.0); Anion Gap 13.4 mEq/L (5-15); Blood Urea Nitrogen 30 mg/dl (9-20); Calcium 9.8 mg/dl (8.4-10.2); Carbon Dioxide 31 mmol/L (22.0-30.0); Chloride 98 mmol/L (98-107); Estimated Glomerular Filt Rate 35 ml/min (>60); GFR (African American) 42 ML/MIN (>60); Glucose 95 mg/dl (74-100); Potassium 4.4 mmoL/L (3.5-5.1); Sodium 138 mmol/L (136-145)
== END ==
PROVIDERS: PCP Emergency Medicine; Visit Provider Internal Medicine Nephrology
DX: N18.30 Chronic kidney disease, stage 3 unspecified (principal); R82.998 Other abnormal findings in urine
CPT/HCPCS: 36415; 80069; 81001; 82570; 84155; 85014; 85018; 85048; 85049; 87086

== ENCOUNTER → 2022-08-20 12:56 | Outpatient (POV) | payer MEDICARE, OTHER, SELFPAY | PROVIDERS: Visit Provider Internal Medicine Nephrology | DX: Z00.00 Encounter for general adult medical examination without abnormal findings (principal) ==

== ENCOUNTER → 2022-09-03 13:00 | Outpatient (CLI) | payer MEDICARE, OTHER, SELFPAY ==
[2022-09-03 19:17] LABS: Amphetamine/Metha Screen,Urine Negative ng/ml (<1000)
[2022-09-03 19:18] LABS: Barbiturates Screen,Urine Negative ng/ml (<200); Benzodiazepines Screen,Urine Negative ng/ml (<200)
[2022-09-03 19:19] LABS: Cannabinoid Screen,Urine Negative ng/ml (<50)
[2022-09-03 19:20] LABS: Cocaine Screen,Urine Negative ng/ml (<300); Methadone Screen,Urine Negative ng/ml (<300)
[2022-09-03 19:21] LABS: Opiate Screen,Urine Positive ng/ml (<300); Phencyclidine Screen,Urine Negative ng/ml (<25)
== END ==
PROVIDERS: PCP Emergency Medicine; Visit Provider Emergency Medicine
DX: R40.0 Somnolence (principal)
CPT/HCPCS: 80305

== ENCOUNTER 2022-09-16 10:33 | Emergency (ER) | payer MEDICARE, OTHER, SELFPAY ==
[2022-09-16 10:46] LABS: Influenza A, PCR Not Detected (NotDetected); Influenza B, PCR Not Detected (NotDetected)
[2022-09-16 10:53] VITALS: BP 136/70; PULSE 72; RESP 19; TEMP 36.4; O2SAT 94; BMI 25.5
[2022-09-16 11:00] VITALS: BP 133/63; PULSE 73; O2SAT 95
[2022-09-16 11:31] VITALS: BP 118/58; PULSE 71; RESP 17; O2SAT 92
[2022-09-16 11:35] LABS: Coronavirus 19, PCR Detected (NotDetected)
[2022-09-16 12:00] VITALS: BP 131/59; PULSE 74; O2SAT 93
[2022-09-16 12:30] VITALS: BP 122/60; PULSE 73; RESP 18; TEMP 36.7; O2SAT 95
--- NOTE | 2022-09-16 23:45 | HMH.EDGENADL ---
Discharge Plan Disposition Patient Disposition: Home, Self-Care Prescriptions Prescriptions: New ondansetron 4 mg tablet,disintegrating 4 mg PO TID PRN (Reason: nausea and vomiting) 3 Days Qty: 8 0RF No Action carbidopa-levodopa 25-100 mg tablet 3 tab PO TID MDD 9 tablets Qty: 810 3RF Rx Instructions: Slow titration as directed up to 3 tablets 3 times daily if able to tolerate it without side effects hydrocodone-acetaminophen 7.5-325 mg tablet 1 tab PO QID Qty: 120 0RF allopurinol 100 mg tablet 100 mg PO DAILY 90 Days Qty: 90 2RF Rx Instructions: 1 tablet every day simvastatin 20 mg tablet 20 mg PO HS Qty: 90 3RF pioglitazone 30 mg tablet See Rx Instructions .ROUTE .COMPLEX Qty: 90 3RF Dose Instruction: TAKE ONE TABLET BY MOUTH EVERY DAY Rx Instructions: TAKE ONE TABLET BY MOUTH EVERY DAY pantoprazole 40 mg tablet,delayed release (DR/EC) See Rx Instructions .ROUTE .COMPLEX Qty: 180 3RF Dose Instruction: TAKE ONE TABLET BY MOUTH TWICE DAILY Rx Instructions: TAKE ONE TABLET BY MOUTH TWICE DAILY furosemide 20 mg tablet See Rx Instructions .ROUTE .COMPLEX Qty: 30 4RF Dose Instruction: TAKE ONE TABLET BY MOUTH EVERY DAY Rx Instructions: TAKE ONE TABLET BY MOUTH EVERY DAY folic acid 1 mg tablet See Rx Instructions .ROUTE .COMPLEX Qty: 90 4RF Dose Instruction: TAKE ONE TABLET BY MOUTH EVERY DAY Rx Instructions: TAKE ONE TABLET BY MOUTH EVERY DAY Referrals Follow up/Referrals: Skyler Garcia MD [Primary Care Provider] - See instructions Clinical Impressions Clinical Impression: COVID-19 Discharge ED Provider: Leighton Adams Adult HPI General Chief complaint: Fever Stated complaint: Bodyaches, fever, cough, drainage, SOA Time Seen by Provider: 09/16/22 11:47 Mode of Arrival: Ambulatory Source of Information: Patient Limitations: No Limitations Description of Symptoms (Recalled from ER Triage Doc. by RN): PT STATES HE HAS HAD FEVER, CHILLS, BODY ACHES,PRODUCTIVE COUGH, AND NO APPETITE FOR ALMOST 2 WEEKS History of Present Illness HPI narrative: Patient presents for evaluation of viral syndrome type symptoms including fever, chills, body aches and productive cough. Patient is a 72-year-old male with past medical history of Parkinson's disease. Patient has had decreased p.o. Patient has not had any medications for his nausea. Related Data Previous Rx's Medication Instructions Recorded allopurinol 100 mg tablet 100 mg PO DAILY 90 days #90 tabs 01/12/22 simvastatin 20 mg tablet 20 mg PO HS #90 tabs 03/22/22 carbidopa 25 mg-levodopa 100 mg 3 tab PO TID Parkinsonian syndrome 04/16/22 tablet #810 tabs pioglitazone 30 mg tablet See Rx Instructions .Route 05/16/22 .COMPLEX #90 tabs pantoprazole 40 mg tablet,delayed See Rx Instructions .Route 05/17/22 release .COMPLEX #180 tabs folic acid 1 mg tablet See Rx Instructions .Route 07/17/22 .COMPLEX #90 tabs furosemide 20 mg tablet See Rx Instructions .Route 07/17/22 .COMPLEX #30 tabs hydrocodone 7.5 mg-acetaminophen 1 tab PO QID #120 tabs 09/03/22 325 mg tablet ondansetron 4 mg disintegrating 4 mg PO TID PRN nausea and 09/16/22 tablet vomiting 3 days #8 tabs Allergies Allergy/AdvReac Type Severity Reaction Status Date / Time No Known Allergies Allergy Verified 09/03/22 12:58 [facility] Disclaimer: The information contained in this section may have been updated after the patient was seen, as this information can be updated by other users. Medical History Daytime somnolence Parkinson disease Surgical History H/O left nephrectomy History of cholecystectomy Hx of appendectomy Social History Smoking Status: Former smoker pack-years: 30 second hand exposure: Yes a
== END 2022-09-16 12:30 | disposition home or self-care (01) ==
PROVIDERS: Emergency Provider Emergency Medicine; PCP Emergency Medicine
DX: U07.1 COVID-19 (principal); G20 Parkinson's disease; R40.0 Somnolence; Z87.891 Personal history of nicotine dependence; Z90.5 Acquired absence of kidney; Z90.49 Acquired absence of other specified parts of digestive tract
CPT/HCPCS: 96374; 99283; 99284; C9803; U0003; U0005

== ENCOUNTER 2022-09-22 09:11 | Observation (INO) | payer MEDICARE, OTHER, SELFPAY ==
[2022-09-22] VITALS (16 sets, daily range): BP systolic 75–144; BP diastolic 27–74; PULSE 82–139; RESP 14–95; TEMP 36.5–39.6; O2SAT 2–100; BMI 25.5
--- NOTE | 2022-09-22 09:10 | ECG_ITS ---
APPROVED REPORT Exam: Resting ECG HR:121 bpm ECG Measurements Heart Rate 121 AXES LA 193 P 60 QRSd 80 QRS -34 QT 298 T 94 QTc 370 Conclusion SINUS TACHYCARDIA WITH OCCASIONAL VENTRICULAR PREMATURE COMPLEXES LEFT AXIS DEVIATION [QRS AXIS < -30] ST DEVIATION AND MODERATE T-WAVE ABNORMALITY, CONSIDER LATERAL ISCHEMIA [-0.1+ mV T-WAVE IN I/aVL/V5/V6] ABNORMAL ECG UNCONFIRMED REPORT Electronically signed by : Pablo Wilkerson MD 09/22/2022 18:47:04
--- NOTE | 2022-09-22 09:21 | PC.NURSE ---
PT PRESENTS WITH O2 SAT 70 ON ROOM AIR. O2 PLACED AT 2L/NC INCREASED TO 80'S. O2 INCREASED TO 4L/NC, 95% AT THIS TIME
--- NOTE | 2022-09-22 09:23 | XR_ITS ---
PROCEDURE INFORMATION: Exam: XR Chest Exam date and time: 09/22/2022 9:40 AM Age: 72 years old Clinical indication: Cough and fever and shortness of breath; Additional info: Cough- covid positive TECHNIQUE: Imaging protocol: Radiologic exam of the chest. Views: 1 view. COMPARISON: CT CHEST W CON 05/27/2021 11:28 AM FINDINGS: Lungs: Reticular opacities in the right greater than left lower lungs. Pleural spaces: Unremarkable. No pleural effusion. No pneumothorax. Heart/Mediastinum: Unremarkable. No cardiomegaly. Bones/joints: Unremarkable. IMPRESSION: Reticular opacities in the right greater than left lower lungs may reflect infection.
--- NOTE | 2022-09-22 09:25 | PC.NURSE ---
DR LI AT BEDSIDE
--- NOTE | 2022-09-22 09:31 | PC.NURSE ---
XR AT BEDSIDE
--- NOTE | 2022-09-22 09:35 | CT_ITS ---
PROCEDURE INFORMATION: Exam: CTA Chest With Contrast Exam date and time: 09/22/2022 11:14 AM Age: 72 years old Clinical indication: Cough and fever and shortness of breath; Additional info: Cancer, previous pe, SOA, tachy TECHNIQUE: Imaging protocol: Computed tomographic angiography of the chest with contrast. 3D rendering (Not supervised by radiologist): MIP and/or 3D reconstructed images were created by the technologist. Radiation optimization: All CT scans at this facility use at least one of these dose optimization techniques: automated exposure control; mA and/or kV adjustment per patient size (includes targeted exams where dose is matched to clinical indication); or iterative reconstruction. Contrast material: ISOVUE; Contrast volume: 70 ml; Contrast route: INTRAVENOUS (IV); COMPARISON: CT CHEST W CON 05/27/2021 11:28 AM FINDINGS: Pulmonary arteries: No pulmonary emboli identified. The previously noted chronic pulmonary embolus in the right lower lobe on 05/27/2021 is no longer seen. Aorta: Unremarkable. No aortic aneurysm. No aortic dissection. Thyroid: There is a 2.7 cm left thyroid nodule. Lungs: Calcified granulomas in the lungs bilaterally. Mild centrilobular emphysema. Pleural spaces: Unremarkable. No pneumothorax. No pleural effusion. Heart: Unremarkable. No cardiomegaly. No pericardial effusion. Lymph nodes: Unremarkable. No enlarged lymph nodes. Gallbladder and bile ducts: Redemonstrated pneumobilia. Spleen: Calcified splenic granulomas. Bones/joints: Unremarkable. No acute fracture. Soft tissues: Unremarkable. IMPRESSION: 1. No pulmonary emboli or other acute cardiopulmonary pathology identified. 2. There is a 2.7 cm left thyroid nodule. Follow-up non-emergent thyroid ultrasound is recommended. COMMENTS: 1. Consistent with the [employer]'s Incidental Findings Committee white paper (J Am Karishma Radiol 2015): In patients aged 35 years and older with an incidental thyroid nodule equal to or greater than 1.[address], MRI or extrathyroidal US, further evaluation with dedicated thyroid US is recommended for patients with normal life expectancy and without comorbidities. For smaller nodules without suspicious features, no further evaluation or follow up is recommended. 2. In the absence of a history or active diagnosis of lung cancer, it is recommended that this patient with emphysema be evaluated for enrollment in a low dose CT lung cancer screening program.
[2022-09-22 09:40] LABS: Basophils % 0.1 % (0.1-2.0); Eosinophils # 0.1 K/mm3 (0.0-0.4); Eosinophils % 0.4 % (0.1-12.0); Hematocrit 34.3 % (42.0-52.0); Hemoglobin 11.9 g/dL (14.1-18.0); Lymphocytes # 0.3 K/mm3 (0.7-4.5); Lymphocytes % 2.5 % (10-50); Mean Corpuscular HGB Conc 34.6 g/dL (31.8-35.4); Mean Corpuscular Hemoglobin 33.2 pg (27.0-31.2); Mean Corpuscular Volume 95.9 fl (80-94); Mean Platelet Volume 9.1 fl (7.4-10.4); Monocytes # 0.2 K/mm3 (0.1-1.0); Monocytes % 1.5 % (1.7-9.3); Neutrophils # 11.4 K/mm3 (1.8-7.8); Neutrophils % 95.4 % (37.0-80.0); Platelet Count 241 K/mm3 (142-424); Red Blood Count 3.57 M/mm3 (4.60-6.20); Red Cell Distribution Width 14.2 % (11.5-17.5); White Blood Count 11.9 K/mm3 (4.8-10.8)
--- NOTE | 2022-09-22 09:40 | HMH.EDGENADL ---
Discharge Plan Disposition Patient Disposition: Admitted As Inpatient Condition: Serious Chief Complaint: Chest Pain Prescriptions Prescriptions: No Action carbidopa-levodopa 25-100 mg tablet 3 tab PO TID MDD 9 tablets Qty: 810 3RF Rx Instructions: Slow titration as directed up to 3 tablets 3 times daily if able to tolerate it without side effects ondansetron 4 mg tablet,disintegrating 4 mg PO TID PRN (Reason: nausea and vomiting) 3 Days Qty: 8 0RF allopurinol 100 mg tablet 100 mg PO DAILY Rx Instructions: 1 tablet every day hydrocodone-acetaminophen 7.5-325 mg tablet 1 tab PO QID pantoprazole 40 mg tablet,delayed release (DR/EC) 40 mg PO BID Rx Instructions: TAKE ONE TABLET BY MOUTH TWICE DAILY simvastatin 20 mg tablet 20 mg PO HS folic acid 1 mg tablet 1 mg PO DAILY Rx Instructions: TAKE ONE TABLET BY MOUTH EVERY DAY furosemide 20 mg tablet 20 mg PO DAILY Rx Instructions: TAKE ONE TABLET BY MOUTH EVERY DAY pioglitazone 30 mg tablet 30 mg PO DAILY Referrals Follow up/Referrals: Skyler Garcia MD [Primary Care Provider] - See instructions Clinical Impressions Clinical Impression: Sepsis, Respiratory failure, Transaminitis, Thyroid nodule, COVID-19, Acute UTI Discharge ED Provider: Johnathon Irizarry General Adult HPI General Chief complaint: Chest Pain Stated complaint: CHEST PAIN Time Seen by Provider: 09/22/22 09:30 Mode of Arrival: Wheelchair Limitations: No Limitations Description of Symptoms (Recalled from ER Triage Doc. by RN): PT DIAGNOSED WITH COVID ON 09/16/2022. TODAY C/O INCREASED SHORTNESS OF BREATH AND CHEST PAIN. PRODUCTIVE COUGH, FEVER AND DECREASED APPETITE. History of Present Illness HPI narrative: Patient is a 72-year-old male with past medical history of renal cancer status post nephrectomy, Parkinson's on carbidopa levodopa, reported previous pulmonary embolism, reportedly not currently on anticoagulation, previous CVA, hypertension, COPD not on home oxygen who presents emergency department for evaluation of respiratory symptoms. Symptoms have been progressive over the last 1 to 2 weeks, moderate to severe in intensity, associated cough, shortness of breath. Patient was seen in the emergency department and diagnosed with COVID and deemed stable for discharge home. Due to worsening symptoms they present here for continued evaluation. Patient has associated decreased p.o. intake and urine output. Denies vomiting, chest pain, abdominal pain. Per chart review patient has progressive functional decline secondary to Parkinson's Related Data Home Medications Medication Instructions Recorded Confirmed allopurinol 100 mg tablet 100 mg PO DAILY GOUT 09/22/22 09/22/22 folic acid 1 mg tablet 1 mg PO DAILY Supplement 09/22/22 09/22/22 furosemide 20 mg tablet 20 mg PO DAILY Fluid 09/22/22 09/22/22 hydrocodone 7.5 mg-acetaminophen 1 tab PO QID Pain 09/22/22 09/22/22 325 mg tablet pantoprazole 40 mg tablet,delayed 40 mg PO BID GERD 09/22/22 09/22/22 release pioglitazone 30 mg tablet 30 mg PO DAILY Diabetes 09/22/22 09/22/22 simvastatin 20 mg tablet 20 mg PO HS Cholesterol 09/22/22 09/22/22 Previous Rx's Medication Instructions Recorded carbidopa 25 mg-levodopa 100 mg 3 tab PO TID Parkinsonian syndrome 04/16/22 tablet #810 tabs ondansetron 4 mg disintegrating 4 mg PO TID PRN nausea and 09/16/22 tablet vomiting 3 days #8 tabs Allergies Allergy/AdvReac Type Severity Reaction Status Date / Time No Known Allergies Allergy Verified 09/03/22 12:58 [facility] Disclaimer: The information contained in this section may have been updated after the patient was seen, as this information can be updated by other users. Medical History Daytime somnolence Parkinson disease Surgical History H/O left
[2022-09-22 09:42] LABS: MANUAL DIFFERENTIAL MANUAL DIFFERENTIAL (MANUAL DIFF)
[2022-09-22 09:44] LABS: Chloride 95 mmol/L (98-107)
[2022-09-22 09:45] LABS: Sodium 137 mmol/L (136-145)
[2022-09-22 09:47] LABS: Alanine Aminotransferase 82 U/L (12-78); Alkaline Phosphatase 442 U/L (38-126); Aspartate Amino Transferase 704 U/L (17-59); Bilirubin,Total 5.7 mg/dl (0.2-1.3); Blood Urea Nitrogen 28 mg/dl (9-20); Creatinine Clearance Estimated 41 mL/min (50-200); Estimated Glomerular Filt Rate 37 ml/min (>60); GFR (African American) 45 ML/MIN (>60)
[2022-09-22 09:48] LABS: Albumin Level 4.4 g/dl (3.5-5.0); Albumin/Globulin Ratio 1.5 (1.1-1.8); Carbon Dioxide 33 mmol/L (22.0-30.0); Glucose 175 mg/dl (74-100); Total Protein,Serum 7.4 g/dl (6.3-8.2)
[2022-09-22 09:49] LABS: VBG Base Excess -2.6 mmol/L (-2.4-2.3); VBG HCO3 23.4 mmol/L (23-30); VBG Oxygen Saturation 68.7 % (50-70); VBG PCO2 45.9 mmol/L (35-51); VBG PH 7.33 mmol/L (7.31-7.41); VBG PO2 39.4 mmol/L (28-40); VBG Total CO2 24.8 mmol/L (23-27)
[2022-09-22 09:54] LABS: Lymphocytes % 5 % (10-50); Monocytes % 1 % (2-9); Neutrophils % 92 % (42-76); Platelet Estimate Normal; RBC Morphology Normal; Total Cells Counted 100
[2022-09-22 09:56] LABS: Influenza A, PCR Not Detected (NotDetected); Influenza B, PCR Not Detected (NotDetected)
[2022-09-22 09:58] LABS: Microscopic, Urine URINE MICROSCOPIC (MICROSCOPIC)
[2022-09-22 09:59] LABS: Lactic Acid 3.3 mmol/L (0.7-2.1)
[2022-09-22 10:00] LABS: Appearance,Urine CLEAR (Clear); Blood, Urine Negative (Negative); Color,Urine DK YELLOW (Yellow); Glucose,Urine (UA) TRACE (Negative); Ketones,Urine TRACE (Negative); Leukocyte Esterase,Urine TRACE (Negative); Nitrate,Urine POSITIVE (Negative); PH,Urine 6.5 (5.0-8.5); Protein,Urine 2+ (Negative); Specific Gravity, Urine <= 1.005 (1.005-1.030); Urobilinogen,Urine >=8.0 EU/dl (0.2)
[2022-09-22 10:02] LABS: Troponin I < 0.01 ng/ml (0.00-0.034)
[2022-09-22 10:03] LABS: Bilirubin,Urine 3+ (Negative)
--- NOTE | 2022-09-22 10:03 | EXP.PHA.CONS ---
Pharmacy Consult Date: 09/22/22 Time: 10:03 Referring provider: DR LI Reason for Consult:: VANCOMYCIN DOSING CONSULT Allergies Allergy/AdvReac Type Severity Reaction Status Date / Time No Known Allergies Allergy Verified 09/03/22 12:58 Home Medications Medication Instructions Recorded Confirmed Type carbidopa 25 mg-levodopa 100 mg 3 tab PO TID Parkinsonian syndrome 04/16/22 09/22/22 Rx tablet #810 tabs ondansetron 4 mg disintegrating 4 mg PO TID PRN nausea and 09/16/22 09/22/22 Rx tablet vomiting 3 days #8 tabs allopurinol 100 mg tablet 100 mg PO DAILY GOUT 09/22/22 09/22/22 History folic acid 1 mg tablet 1 mg PO DAILY Supplement 09/22/22 09/22/22 History furosemide 20 mg tablet 20 mg PO DAILY Fluid 09/22/22 09/22/22 History hydrocodone 7.5 mg-acetaminophen 1 tab PO QID Pain 09/22/22 09/22/22 History 325 mg tablet pantoprazole 40 mg tablet,delayed 40 mg PO BID GERD 09/22/22 09/22/22 History release pioglitazone 30 mg tablet 30 mg PO DAILY Diabetes 09/22/22 09/22/22 History simvastatin 20 mg tablet 20 mg PO HS Cholesterol 09/22/22 09/22/22 History New Prescriptions to Start Prescriptions: Height: 1.75 m Weight: 78.471 kg Laboratory Results:: Laboratory Results - last 24 hr 09/22/22 09:17: WBC 11.9 H, RBC 3.57 L, Hgb 11.9 L, Hct 34.3 L, MCV 95.9 H, MCH 33.2 H, MCHC 34.6, RDW 14.2, Plt Count 241, MPV 9.1, Neut % (Auto) 95.4 H, Lymph % (Auto) 2.5 L, [place] % (Auto) 1.5 L, Eos % (Auto) 0.4, Baso % (Auto) 0.1, Neut # (Auto) 11.4 H, Lymph # (Auto) 0.3 L, [place] # (Auto) 0.2, Eos # (Auto) 0.1, Baso # (Auto) 0.0, Total Counted 100, Neutrophils % (Manual) 92 H, Band Neutrophils % 2.0, Lymphocytes % (Manual) 5 L, Monocytes % (Manual) 1 L, Platelet Estimate Normal, RBC Morphology Normal 09/22/22 09:17: Sodium 137, Potassium 4.0, Chloride 95 L, Carbon Dioxide 33 H, Anion Gap 13.0, BUN 28 H, Creatinine 1.80 H, Estimated Creat Clear 41, Estimated GFR 37 L, Est GFR ( Amer) 45 L, Glucose 175 H, Calcium 9.0, Total Bilirubin 5.7 H, AST 704 H*, ALT 82 H, Alkaline Phosphatase 442 H, Troponin I < 0.01, Total Protein 7.4, Albumin 4.4, Globulin 3.0, Albumin/Globulin Ratio 1.5 09/22/22 09:27: Lactate 3.3 H 09/22/22 09:36: VBG pH 7.33, VBG pCO2 45.9, VBG pO2 39.4, VBG HCO3 23.4, VBG Total CO2 24.8, VBG O2 Saturation 68.7, VBG Base Excess -2.6 L 09/22/22 09:53: Urine Color Dk yellow, Urine Appearance Clear, Urine pH 6.5, Ur Specific [place] <= 1.005, Urine Protein 2+, Urine Glucose (UA) Trace, Urine Ketones Trace, Urine Blood Negative, Urine Nitrate Positive, Urine Bilirubin 3+ A, Urine Urobilinogen >=8.0, Ur Leukocyte Esterase Trace Medical History: Medical History (Updated 09/16/22 @ 12:17 by Leighton Adams MD) Daytime somnolence Parkinson disease Assessment and Plan Assessment and plan all Dx Assessment and Plan for all problems:: Pharmacokinetic dosing service Objective: Age: 72 yo Serum creatinine: 1.8 mg/dL Height: 68.9 Inches Weight (kg): 78.471 Diagnosis: COVID PNEUMONIA Assessment: IBW (kg): 70.47 Dosing wt(kg): 78.471 Estimated Creatinine clearance (ml/min): 36.4 CRCL method: Cockcroft and Gault using ibw(default). Drug selected: Vancomycin Vd (liters): 54.9 (factor used: 0.7 L/kg) Arash (hr-1): 0.035 Half life (hrs): 19.80 CLvanco=?? 1.922 L/hr Recommended dose: 1500 mg Interval: 36 hrs Infusion time (hrs): 2.0 Predicted peak (mcg/mL): 36.8 Predicted trough (mcg/mL): 11.20 Total body weight is being used for vancomycin dosing. Recommendations: Give Vancomycin 1500 mg q 36 hrs with an expected Cpeak of 36.8 mcg/ml and an expected Ctrough of 11.20 mcg/ml AUC 0-24 /DOREEN Data: DOREEN 0.5 mcg/mL:?? AUC/DOREEN:? 1040.6 DOREEN 1.0 mcg/mL:?? AUC/DOREEN:? 520.3 --------- DOREEN 1.5
[2022-09-22 10:04] LABS: Bacteria,Urine 1+ /lpf; Squamous Epithelial Cell,Urine Occasional #/hpf (0-5); WBC,Urine Occasional #/hpf (0-3)
[2022-09-22 10:17] LABS: Coronavirus 19, PCR Detected (NotDetected)
--- NOTE | 2022-09-22 11:07 | PC.NURSE ---
PT TO CT
--- NOTE | 2022-09-22 11:26 | PC.NURSE ---
PT RETURNED FROM CT
--- NOTE | 2022-09-22 11:58 | PC.NURSE ---
DR. LI SPEAKING WITH DR. CARTER
--- NOTE | 2022-09-22 12:00 | PC.NURSE ---
pt given drink and meal tray ordered
--- NOTE | 2022-09-22 12:02 | PC.NURSE ---
SENIOR ARCHITECTURAL DESIGNER NOTIFIED OF ADMISSION AND REQUEST FOR BED ASSIGNMENT
--- NOTE | 2022-09-22 12:03 | PC.NURSE ---
house called for admission
--- NOTE | 2022-09-22 12:24 | PC.NURSE ---
pt given meal tray
--- NOTE | 2022-09-22 12:34 | PC.NURSE ---
FAMILY UPDATED AT THIS TIME
--- NOTE | 2022-09-22 12:40 | EXP.HP ---
History of Present Illness *Admission Date: 09/22/22 *Reason for visit:: shortness of breath *History of present illness: Mr. Maravilla is a pleasant 72-year-old male with past medical history of renal cancer status post nephrectomy, Parkinson's, reported previous pulmonary embolism, previous CVA, hypertension, COPD not on home oxygen who presents ER with complaint of worsening shortness of breath. States his symptoms have been progressive over the past 2 weeks. Reports a diagnosis of COVID 1 week ago. Of note, test positive again for COVID today. Reports that his cough has been progressing with increased productivity, dyspnea, fatigue. He has had very poor p.o. intake, felt nauseous and had an upset stomach. Noted a decrease in urine output. Denies rk vomiting, chest pain, confusion. On arrival to the ER patient found to have KYLAH, be hypotensive, and meeting criteria for sepsis. Concerning findings of pneumonia on chest imaging. Labs also concerning for transaminitis. Admitted to medicine for further management. [facility] Disclaimer: The information contained in this section may have been updated after the patient was seen, as this information can be updated by other users. Medical History COPD (chronic obstructive pulmonary disease) Daytime somnolence DM type 2 (diabetes mellitus, type 2) GERD (gastroesophageal reflux disease) Heart failure Parkinson disease Single kidney TIA (transient ischemic attack) Surgical History H/O left nephrectomy History of cholecystectomy Hx of appendectomy Family History No significant family history Social History Smoking Status: Never smoker second hand exposure: Yes alcohol intake: current substance use type: denies use current occupational status: retired Travel in the last 8 weeks: None household members: spouse housing: house current occupational exposures/hazards: No caffeine: No Review of Systems Review of Systems Review of systems (narrative): 14 point review of systems performed, pertinent positives and negatives as per HPI Meds Home Medications and Allergies Home Medications Medication Instructions Recorded Confirmed Type carbidopa 25 mg-levodopa 100 mg 3 tab PO TID Parkinsonian syndrome 04/16/22 09/22/22 Rx tablet #810 tabs allopurinol 100 mg tablet 100 mg PO DAILY GOUT 09/22/22 09/22/22 History folic acid 1 mg tablet 1 mg PO DAILY Supplement 09/22/22 09/22/22 History furosemide 40 mg tablet 40 mg PO DAILY Fluid 09/22/22 09/22/22 History hydrocodone 7.5 mg-acetaminophen 1 tab PO QID MODERATE TO SEVERE 09/22/22 09/22/22 History 325 mg tablet PAIN ondansetron 4 mg disintegrating 4 mg PO TIDP PRN nausea and 09/22/22 09/22/22 History tablet vomiting pantoprazole 40 mg tablet,delayed 40 mg PO BID GERD 09/22/22 09/22/22 History release pioglitazone 30 mg tablet 30 mg PO DAILY Diabetes 09/22/22 09/22/22 History simvastatin 20 mg tablet 20 mg PO HS Cholesterol 09/22/22 09/22/22 History New Prescriptions to Start Prescriptions: Allergies Allergy/AdvReac Type Severity Reaction Status Date / Time No Known Allergies Allergy Verified 09/03/22 12:58 Exam Data for Last 24 hours Vital signs and Labs for Last 24 Hours: Temp Pulse Resp BP Pulse Ox 100.8 F H 108 H 18 109/54 L 96 09/22/22 10:49 09/22/22 11:37 09/22/22 11:00 09/22/22 11:37 09/22/22 11:37 Laboratory Results - last 24 hr 09/22/22 09:17: WBC 11.9 H, RBC 3.57 L, Hgb 11.9 L, Hct 34.3 L, MCV 95.9 H, MCH 33.2 H, MCHC 34.6, RDW 14.2, Plt Count 241, MPV 9.1, Neut % (Auto) 95.4 H, Lymph % (Auto) 2.5 L, [place] % (Auto) 1.5 L, Eos % (Auto) 0.4, Baso % (Auto) 0.1, Neut # (Auto) 11.4 H, Lymph # (Auto) 0.3 L, [place] # (Auto) 0.2, Eos # (Auto) 0.1, Baso # (Auto) 0.0,
[2022-09-22 12:45] LABS: Thyroid Stimulating Hormone 0.89 uIU/mL (0.465-4.68)
--- NOTE | 2022-09-22 13:21 | PC.NURSE ---
REPORT GIVEN TO Harsha HERRERA RN
--- NOTE | 2022-09-22 13:25 | HMH.PHAINT1 ---
Pharmacy Intervention Comments: MEDICATION RECONCILIATION COMPLETE USING LIST FROM MOST RECENT MD OFFICE VISIT (08/2022) AND EXTERNAL PHARMACY FILL HISTORY.
[2022-09-22 13:43] LABS: Reflex Lactic Add Lactic Reflex
--- NOTE | 2022-09-22 14:11 | PC.NURSE ---
PT arrived to the floor at this time
--- NOTE | 2022-09-22 14:38 | PC.NURSE ---
pt unable to verify home medication and last time taken
[2022-09-22 15:10] LABS: Lactic Acid Follow Up (RFLX 1) 1.4 mmol/L (0.7-2.1)
[2022-09-22 16:29] LABS: POC Glucose,Bedside 295 (70-110)
[2022-09-22 17:03] LABS: Troponin I 0.01 ng/ml (0.00-0.034)
--- NOTE | 2022-09-22 19:49 | HMH.PHAINT ---
Nina stevan with pharmacy [facility] called for remdisivir dosing
[2022-09-22 22:21] LABS: Alanine Aminotransferase 94 U/L (12-78); Albumin Level 3.4 g/dl (3.5-5.0); Albumin/Globulin Ratio 1.4 (1.1-1.8); Alkaline Phosphatase 309 U/L (38-126); Anion Gap 11.1 mEq/L (5-15); Aspartate Amino Transferase 484 U/L (17-59); Bilirubin,Total 4.8 mg/dl (0.2-1.3); Blood Urea Nitrogen 30 mg/dl (9-20); Calcium 8.2 mg/dl (8.4-10.2); Carbon Dioxide 30 mmol/L (22.0-30.0); Chloride 99 mmol/L (98-107); Creatinine Clearance Estimated 38 mL/min (50-200); Estimated Glomerular Filt Rate 35 ml/min (>60); GFR (African American) 42 ML/MIN (>60); Globulin 2.4 g/dL (1.3-3.2); Glucose 212 mg/dl (74-100); Potassium 4.1 mmoL/L (3.5-5.1); Sodium 136 mmol/L (136-145); Total Protein,Serum 5.8 g/dl (6.3-8.2)
[2022-09-23] VITALS: BP 129/73; PULSE 76; RESP 18; TEMP 36.4; O2SAT 95
--- NOTE | 2022-09-23 02:50 | PC.NURSE ---
0520 positive blood cultures were called to jacky conner. no new orders at this time.
[2022-09-23 04:00] VITALS: BP 147/80; PULSE 109; RESP 18; TEMP 36.4; O2SAT 94; BMI 25.4
--- NOTE | 2022-09-23 04:54 | PC.NURSE ---
no changes from previous assessment, vss, pt hr tachy at times up to 109, pt is alert and oriented x4, skin pwd without edema, f/c to bsd with dark yellow orange urine noted with strong odor, pt on 02 at 1L with 02 sats 94%, no other issues or concerns at this time, lung sounds clear and diminished, no acute distress.
[2022-09-23 06:46] LABS: POC Glucose,Bedside 242 (70-110)
[2022-09-23 06:46] LABS: POC Glucose,Bedside 109 (70-110)
[2022-09-23 07:45] LABS: Basophils % 0.1 % (0.1-2.0); Hematocrit 25.1 % (42.0-52.0); Lymphocytes # 0.5 K/mm3 (0.7-4.5); Lymphocytes % 5.6 % (10-50); Mean Corpuscular HGB Conc 35.5 g/dL (31.8-35.4); Mean Corpuscular Hemoglobin 33.6 pg (27.0-31.2); Mean Corpuscular Volume 94.7 fl (80-94); Mean Platelet Volume 9.1 fl (7.4-10.4); Monocytes # 0.3 K/mm3 (0.1-1.0); Monocytes % 3.5 % (1.7-9.3); Neutrophils # 8.6 K/mm3 (1.8-7.8); Neutrophils % 90.7 % (37.0-80.0); Platelet Count 147 K/mm3 (142-424); Red Blood Count 2.65 M/mm3 (4.60-6.20); Red Cell Distribution Width 14.3 % (11.5-17.5); White Blood Count 9.5 K/mm3 (4.8-10.8)
[2022-09-23 07:46] LABS: Hemoglobin 8.9 g/dL (14.1-18.0); MANUAL DIFFERENTIAL MANUAL DIFFERENTIAL (MANUAL DIFF)
[2022-09-23 07:47] LABS: Alanine Aminotransferase 43 U/L (12-78); Albumin Level 3.1 g/dl (3.5-5.0); Albumin/Globulin Ratio 1.4 (1.1-1.8); Alkaline Phosphatase 279 U/L (38-126); Anion Gap 9.4 mEq/L (5-15); Aspartate Amino Transferase 288 U/L (17-59); Bilirubin,Total 3.9 mg/dl (0.2-1.3); Blood Urea Nitrogen 33 mg/dl (9-20); Calcium 7.9 mg/dl (8.4-10.2); Carbon Dioxide 30 mmol/L (22.0-30.0); Chloride 102 mmol/L (98-107); Creatinine Clearance Estimated 43 mL/min (50-200); Estimated Glomerular Filt Rate 40 ml/min (>60); GFR (African American) 48 ML/MIN (>60); Globulin 2.2 g/dL (1.3-3.2); Glucose 99 mg/dl (74-100); Magnesium 1.1 mg/dl (1.6-2.3); Potassium 4.4 mmoL/L (3.5-5.1); Sodium 137 mmol/L (136-145); Total Protein,Serum 5.3 g/dl (6.3-8.2)
[2022-09-23 08:00] VITALS: BP 114/63; PULSE 74; RESP 20; TEMP 36.9; O2SAT 93
[2022-09-23 08:32] LABS: Lymphocytes % 4 % (10-50); Monocytes % 4 % (2-9); Neutrophils % 91 % (42-76); Platelet Estimate Normal; Total Cells Counted 100
[2022-09-23 08:33] LABS: RBC Morphology Normal
[2022-09-23 11:40] LABS: POC Glucose,Bedside 98 (70-110)
[2022-09-23 12:00] VITALS: BP 136/66; PULSE 82; RESP 18; TEMP 36.8; O2SAT 94
--- NOTE | 2022-09-23 13:44 | EXP.ACUTE.PN ---
Subjective *Date: 09/23/22 *Time: 13:44 Interval history: Patient more alert this morning. Decreased oxygen requirement. Weaned off oxygen by morning rounds. States he is feeling much better. Still complaining of some mild abdominal pain. Significant improvement in labs. Blood cultures returned positive for E. coli and Klebsiella. Tolerating p.o. intake. Denies chest pain, confusion, fever, headache. Reports breathing is improving. Medical Exam Vital signs and Labs for Last 24 Hours: Vital Signs Temp Pulse Pulse Resp BP BP Pulse Ox 09/23/22 12:00 98.3 F 82 18 136/66 94 L 09/23/22 08:00 98.5 F 74 20 114/63 93 L 09/23/22 04:00 97.5 F L 109 H 18 147/80 H 94 L 09/23/22 00:00 97.5 F L 76 18 129/73 95 09/22/22 20:00 97.7 F 82 18 144/74 H 96 09/22/22 20:00 99 09/22/22 16:00 91 H 20 137/71 98 09/22/22 14:42 99.3 F 101 H 22 130/70 96 09/22/22 16:00 100 H 09/22/22 16:18 99.0 F 09/22/22 15:00 98 H 98 09/22/22 14:10 98.9 F 97 H 95 H 119/59 L Intake and Output 09/22/22 09/23/22 09/23/22 23:59 07:59 15:59 Intake Total 494 / 494 837 / 1297 460 / 1297 Output Total 0 / 0 800 / 800 Balance 494 / 494 37 / 497 460 / 497 Intake: Intake, Oral Amount 120 / 120 460 / 460 Intake, Total IV Amount 374 / 374 837 / 837 Cefepime HCl 1 gm In 0.9 % 50 / 50 Sodium Chloride 50 ml @ 100 mls /hr IV Q12H PENDING SALE TO [facility] Rx#:[id number] Remdesivir 200 mg In 0.9 % 250 / 250 Sodium Chloride 250 ml @ 250 mls/hr IV ONCE ONE Rx#:[id number] Ringers Solution,Lactated 1,000 374 / 374 537 / 537 ml @ 100 mls/hr IV .Q10H PENDING SALE TO [facility] Rx#:[id number] Output: Output, Urine Amount 0 / 0 400 / 400 Output, Urine Amount (Catheter) 400 / 400 Prince 400 / 400 Other: Number of Unmeasured Voids 0 0 Weight 77.968 kg Patient Weight 09/23/22 23:59 Weight 77.968 kg Laboratory Results - last 24 hr 09/22/22 14:42: Lactate 1.4 09/22/22 16:15: Troponin I 0.01 09/22/22 16:23: POC Glucose 295 H 09/22/22 20:21: POC Glucose 242 H 09/22/22 21:10: Sodium 136, Potassium 4.1, Chloride 99, Carbon Dioxide 30, Anion Gap 11.1, BUN 30 H, Creatinine 1.90 H, Estimated Creat Clear 38, Estimated GFR 35 L, Est GFR ( Amer) 42 L, Glucose 212 H D, Calcium 8.2 L, Total Bilirubin 4.8 H, AST 484 H* D, ALT 94 H, Alkaline Phosphatase 309 H, Total Protein 5.8 L, Albumin 3.4 L D, Globulin 2.4, Albumin/Globulin Ratio 1.4 09/23/22 06:30: POC Glucose 109 09/23/22 06:52: WBC 9.5, RBC 2.65 L D, Hgb 8.9 L D, Hct 25.1 L, MCV 94.7 H, MCH 33.6 H, MCHC 35.5 H, RDW 14.3, Plt Count 147 D, MPV 9.1, Neut % (Auto) 90.7 H, Lymph % (Auto) 5.6 L, Kinney % (Auto) 3.5, Eos % (Auto) 0.0 L, Baso % (Auto) 0.1, Neut # (Auto) 8.6 H, Lymph # (Auto) 0.5 L, Kinney # (Auto) 0.3, Eos # (Auto) 0.0, Baso # (Auto) 0.0, Total Counted 100, Neutrophils % (Manual) 91 H, Band Neutrophils % 1.0, Lymphocytes % (Manual) 4 L, Monocytes % (Manual) 4, Platelet Estimate Normal, RBC Morphology Normal 09/23/22 06:52: Sodium 137, Potassium 4.4, Chloride 102, Carbon Dioxide 30, Anion Gap 9.4, BUN 33 H, Creatinine 1.70 H, Estimated Creat Clear 43, Estimated GFR 40 L, Est GFR ( Amer) 48 L, Glucose 99 D, Calcium 7.9 L, Magnesium 1.1 L, Total Bilirubin 3.9 H, AST 288 H D, ALT 43 D, Alkaline Phosphatase 279 H, Total Protein 5.3 L, Albumin 3.1 L, Globulin 2.2, Albumin/Globulin Ratio 1.4 09/23/22 11:09: POC Glucose 98 I & O for Labs for Last 24 Hours: Intake & Output 09/20/22 09/21/22 09/22/22 09/23/22 23:59 23:59 23:59 23:59 Intake Total 494 / 494 1297 / 1297 Output Total 0 / 0 800 / 800 Balance 494 / 494 497 / 497 Weight 78.471 kg 77.968 kg Microbiology Reports for the Last 24 Hours: Microbiology 09/22/22 09:53 Urine,Catheterized Urine Culture - Preliminary NO GROWTH AFTER 24 HOURS 09/22/22 09:27 Blood Blood Culture - Preliminar
[2022-09-23 14:03] LABS: Hemoglobin A1C 5.3 % (4.0-6.0)
[2022-09-23 16:00] VITALS: BP 127/90; PULSE 82; RESP 18; TEMP 37.1; O2SAT 93
[2022-09-23 16:52] LABS: POC Glucose,Bedside 119 (70-110)
--- NOTE | 2022-09-23 18:07 | EXP.DC.SUM ---
General Admission date:: 09/22/22 Discharge date: 09/24/22 HPI HPI HPI: Mr. Maravilla is a pleasant 72-year-old male with past medical history of renal cancer status post nephrectomy, Parkinson's, reported previous pulmonary embolism, previous CVA, hypertension, COPD not on home oxygen who presents ER with complaint of worsening shortness of breath. States his symptoms have been progressive over the past 2 weeks. Reports a diagnosis of COVID 1 week ago. Of note, test positive again for COVID today. Reports that his cough has been progressing with increased productivity, dyspnea, fatigue. He has had very poor p.o. intake, felt nauseous and had an upset stomach. Noted a decrease in urine output. Denies rk vomiting, chest pain, confusion. On arrival to the ER patient found to have KYLAH, be hypotensive, and meeting criteria for sepsis. Concerning findings of pneumonia on chest imaging. Labs also concerning for transaminitis. Admitted to medicine for further management. Hospital Course Hospital Course Hospital Course: 72-year-old male with significant past medical history who presents with over a week of symptoms including worsening shortness of breath, fatigue, decreased urine output.? Found to be septic secondary to COVID with hypoxemic respiratory failure.? Initiated on broad-spectrum antibiotics and COVID protocol.? Problems addressed as follows: Acute hypoxemic respiratory failure Sepsis COVID-19, pneumonia Bacteremia (E. coli and Klebsiella) -Received sepsis bundle, cultures obtained, positive swab for COVID-19. Imaging obtained including CTA. Chest x-ray showed reticular markings concerning for infection. Initial oxygen requirement on admission. Started on cefepime and remdesivir for COVID and pneumonia. Blood cultures positive for gram-negative rods, plan for 14 days total of antibiotics. Transitioned to Levaquin for ease of dosing (renally dosed every 48 hours). Over the first 48 hours of admission. He was also treated with dexamethasone. Stable on room air at time of discharge. Will complete 5 total days of steroids. No PEs on chest imaging. Needs follow-up with PCP in the coming weeks to assess resolution of symptoms. KYLAH vs CKD - Cr 1.9 on admission. Continue to improve. Improved urine output with fluid resuscitation. History of solitary kidney, caution with nephrotoxins and renally dosing medications. Transaminitis -Suspect secondary to hypotension and degree of shock liver. Improved with fluid resuscitation. Hypomagnesemia: Treated with IV repletion during admission Parkinson's: Continue Parkinson's meds including carbidopa/levodopa Diabetes/hyperglycemia. On pioglitazone at home. A1c 5.3. Glucose well controlled during admission. Recommend reevaluating treatment for diabetes given control of A1c in the low 5 range and risk of hypoglycemia with pioglitazone. Medically stable for discharge home. Complete antibiotics and steroids. Patient will also need repeat imaging in the next 3 to 6 months for further evaluation of an incidental thyroid nodule found in the left thyroid. 2.[address] of chest. Defer to PCP. Exam Data for Last 24 hours Vital signs and Labs for Last 24 Hours: Temp Pulse Resp BP Pulse Ox 98.7 F 82 18 127/90 93 L 09/23/22 16:00 09/23/22 16:00 09/23/22 16:00 09/23/22 16:00 09/23/22 16:00 Laboratory Results - last 24 hr 09/22/22 20:21: POC Glucose 242 H 09/22/22 21:10: Sodium 136, Potassium 4.1, Chloride 99, Carbon Dioxide 30, Anion Gap 11.1, BUN 30 H, Creatinine 1.90 H, Estimated Creat Clear 38, Estimated GFR 35 L, Est GFR ( Amer) 42 L, Glucose 212 H D, Calcium 8.2 L, Total Bilirubin 4.8 H, AST 484 H* D, ALT 94 H, Alkaline Phosphatase 309 H, Total Protein 5.8 L, Albumin 3.4 L D, Globulin 2.4, Albumin/Globulin Ratio 1.4 09/23/22 06:30: POC Glucose 109 09/23/22 06:52: WBC 9.5, RBC 2.65 L D, Hgb 8.9 L D, Hct 25.1 L, MCV 94.7 H, MCH 33.6 H, MCHC 35.5 H, RDW 14.3, Plt
--- NOTE | 2022-09-23 18:45 | PC.NURSE ---
Patient up to chair for most of shift. VS stable, patient remained on room air. Lung sounds clear. No acute changes. Urine electrical assistant after bolus of fluid but still gokul.
[2022-09-23 20:00] VITALS: BP 123/62; PULSE 80; RESP 16; TEMP 36.8; O2SAT 96
[2022-09-23 20:29] LABS: POC Glucose,Bedside 167 (70-110)
[2022-09-24] VITALS: BP 131/76; PULSE 72; RESP 18; TEMP 36.7; O2SAT 96
[2022-09-24 04:00] VITALS: BP 164/85; PULSE 78; RESP 16; TEMP 36.7; O2SAT 97; BMI 25.4
[2022-09-24 05:31] LABS: POC Glucose,Bedside 129 (70-110)
[2022-09-24 06:24] LABS: Alanine Aminotransferase 39 U/L (12-78); Albumin Level 3.3 g/dl (3.5-5.0); Albumin/Globulin Ratio 1.3 (1.1-1.8); Alkaline Phosphatase 267 U/L (38-126); Aspartate Amino Transferase 144 U/L (17-59); Bilirubin,Total 1.4 mg/dl (0.2-1.3); Blood Urea Nitrogen 35 mg/dl (9-20); Calcium 8.1 mg/dl (8.4-10.2); Carbon Dioxide 27 mmol/L (22.0-30.0); Chloride 100 mmol/L (98-107); Creatinine Clearance Estimated 45 mL/min (50-200); Estimated Glomerular Filt Rate 43 ml/min (>60); GFR (African American) 52 ML/MIN (>60); Globulin 2.5 g/dL (1.3-3.2); Glucose 125 mg/dl (74-100); Magnesium 1.6 mg/dl (1.6-2.3); Sodium 135 mmol/L (136-145); Total Protein,Serum 5.8 g/dl (6.3-8.2)
[2022-09-24 06:38] LABS: Basophils % 0.1 % (0.1-2.0); Hematocrit 27.2 % (42.0-52.0); Hemoglobin 9.2 g/dL (14.1-18.0); Lymphocytes # 0.4 K/mm3 (0.7-4.5); Lymphocytes % 5.4 % (10-50); Mean Corpuscular HGB Conc 33.8 g/dL (31.8-35.4); Mean Corpuscular Hemoglobin 32.6 pg (27.0-31.2); Mean Corpuscular Volume 96.2 fl (80-94); Mean Platelet Volume 10.2 fl (7.4-10.4); Monocytes # 0.2 K/mm3 (0.1-1.0); Monocytes % 3.2 % (1.7-9.3); Neutrophils % 91.4 % (37.0-80.0); Platelet Count 166 K/mm3 (142-424); Red Blood Count 2.82 M/mm3 (4.60-6.20); Red Cell Distribution Width 14.2 % (11.5-17.5); White Blood Count 6.6 K/mm3 (4.8-10.8)
--- NOTE | 2022-09-24 06:45 | PC.NURSE ---
NO ACUTE CHANGES SINCE PREVIOUS ASSESSMENT. PT HAS SLEPT INTERMITTENTLY. VSS. TURNING IN BED INDEPENDENTLY. NO C/O SOB THIS SHIFT. C/O A INTERMITTENT NON-PRODUCTIVE COUGH. MERRITT PULLED THIS AM ABOUT 0600. PT ATTEMPTING TO URINATE IN URINAL AT THIS TIME.
[2022-09-24 06:48] LABS: MANUAL DIFFERENTIAL MANUAL DIFFERENTIAL (MANUAL DIFF)
[2022-09-24 07:17] LABS: Lymphocytes % 4 % (10-50); Monocytes % 2 % (2-9); Neutrophils % 94 % (42-76); Platelet Estimate Normal; RBC Morphology Normal; Total Cells Counted 100
[2022-09-24 08:00] VITALS: BP 151/78; PULSE 88; RESP 18; TEMP 36.6; O2SAT 95
[2022-09-24 11:02] LABS: POC Glucose,Bedside 146 (70-110)
[2022-09-24 11:33] VITALS: BP 152/80; PULSE 78; RESP 18; TEMP 36.8; O2SAT 98
--- NOTE | 2022-09-24 13:12 | P.CONPHA_ITS ---
Pharmacy Intervention Comments: Met with patient to credit support counselor on discharge medications prior to discharge. Overviewed new and continued medications, including indications, possible adverse effects, and mitigations strategies for each. Instructed patient to hold furosemide until follow-up with PCP. Patient verbalized understanding of infor mation provided and had no questions or concerns at this time. -Stacy Espinoza, PharmD Candidate 2022
--- NOTE | 2022-09-25 14:55 | CARE MANAGER ---
Spoke with patient for post-discharge phone interview, patient is not feeling much better. Instructed to call primary MD if not feeling better.
== END 2022-09-24 12:59 | disposition home or self-care (01) ==
LOC: ER 12:05 → 2ND 12:38
PROVIDERS: Admitting Provider Internal Medicine Adolescent Medicine; Emergency Provider Emergency Medicine; PCP Emergency Medicine; Visit Provider Internal Medicine Adolescent Medicine
DX: U07.1 COVID-19 (principal); J96.01 Acute respiratory failure with hypoxia; G20 Parkinson's disease; N39.0 Urinary tract infection, site not specified; Z86.73 Personal history of transient ischemic attack (TIA), and cerebral infarction without residual deficits; I10 Essential (primary) hypertension; E11.9 Type 2 diabetes mellitus without complications; Z79.899 Other long term (current) drug therapy; Z79.84 Long term (current) use of oral hypoglycemic drugs
CPT/HCPCS: G0378; 36415; 71045; 71275; 80053; 81001; 82803; 82962; 83036; 83605; 83735; 84443; 84484; 85007; 85025; 87040; 87070; 87077; 87086; 87186; 87205; 93005; 99285; C9803; J0692; J2405; J3475; Q9967; U0003; U0005

== ENCOUNTER 2023-01-04 08:09 | Emergency (ER) | payer MEDICARE, OTHER, SELFPAY ==
[2023-01-04] VITALS (11 sets, daily range): BP systolic 131–173; BP diastolic 60–87; PULSE 73–80; RESP 17–18; TEMP 36.6–36.7; O2SAT 99–100; BMI 24.3
--- NOTE | 2023-01-04 08:17 | PC.NURSE ---
[id number] dr mosqueda at bedside
--- NOTE | 2023-01-04 08:28 | XR_ITS ---
PROCEDURE INFORMATION: Exam: XR Right Femur Exam date and time: 01/04/2023 8:59 AM Age: 72 years old Clinical indication: Pain; Hip; Right; Additional info: R hip pain TECHNIQUE: Imaging protocol: Radiologic exam of the right femur. Views: 2 views. COMPARISON: 1. CR XR HIP RT 2-3V W/PELVIS 01/04/2023 9:[address] ABDOMEN PELVIS W CON 05/27/2021 11:28 AM FINDINGS: Bones/joints: No acute fracture identified. Right hip joint appears intact. Mild/moderate degenerative changes of the right hip. Suboptimal evaluation of the lateral greater trochanter which can be seen better on same-day hip radiograph. Soft tissues: Unremarkable. Vasculature: Diffuse atherosclerotic calcifications of the included right lower extremity vasculature. IMPRESSION: 1. No acute osseous abnormality. 2. Atherosclerotic disease.
--- NOTE | 2023-01-04 08:28 | XR_ITS ---
PROCEDURE INFORMATION: Exam: XR Right Hip Exam date and time: 01/04/2023 9:00 AM Age: 72 years old Clinical indication: Hip pain; Right hip; Additional info: R hip pain TECHNIQUE: Imaging protocol: Radiologic exam of the right hip. Views: 2 or 3 views hip with pelvis when performed. COMPARISON: CT ABDOMEN PELVIS W CON 05/27/2021 11:28 AM FINDINGS: Bones/joints: No acute fracture identified. No dislocation. Mild/moderate degenerative changes of both hips. Soft tissues: Unremarkable. Intraperitoneal space: Surgical clips in the left abdomen noted. Vasculature: Iliofemoral atherosclerotic calcifications. Scattered phleboliths in the pelvis. IMPRESSION: 1. No acute osseous abnormality. If symptoms persist, consider CT or MRI. 2. Atherosclerotic disease.
--- NOTE | 2023-01-04 08:28 | CA_ITS ---
FINAL REPORT TECHNIQUE: Multiple transverse and longitudinal images were performed of right the femoral-popliteal deep venous system with augmentation and compression maneuvers. CLINICAL HISTORY: scan for DVT RLE, PAIN,EDEMA, FEET BURNING COMPARISON: none FINDINGS: Right lower extremity duplex ultrasound demonstrates normal flow in the deep venous system. There is no abnormal echogenicity to suggest thrombus. There is normal compression and augmentation. IMPRESSION: No evidence of right DVT. Reviewed, Interpreted and Dictated by Hung Stovall III, MD Transcribed by Aimee Luu Authenticated and [facility]
--- NOTE | 2023-01-04 08:33 | HMH.EDGENADL ---
Discharge Plan Disposition Patient Disposition: Home, Self-Care Condition: Fair Chief Complaint: Extremity Injury, Lower Prescriptions Prescriptions: No Action carbidopa-levodopa 25-100 mg tablet 3 tab PO TID MDD 10 Qty: 900 3RF Rx Instructions: 3 tablets upon waking up, 3 tablets at noon and 4 tablets at night simvastatin 10 mg tablet 10 mg PO HS pantoprazole 40 mg tablet,delayed release (DR/EC) PO prednisone 20 mg tablet 20 mg PO BID 3 Days Qty: 6 0RF mupirocin 2 % ointment 1 applic topical BID Qty: 22 0RF oxycodone 5 mg tablet 5 mg PO TID Qty: 9 0RF hydrocodone-acetaminophen 7.5-325 mg tablet 1 tab PO QID Qty: 120 0RF allopurinol 100 mg tablet See Rx Instructions .ROUTE .COMPLEX Qty: 90 2RF Dose Instruction: TAKE ONE TABLET BY MOUTH EVERY DAY Rx Instructions: TAKE ONE TABLET BY MOUTH EVERY DAY folic acid 1 mg tablet 1 mg PO DAILY Rx Instructions: TAKE ONE TABLET BY MOUTH EVERY DAY furosemide 40 mg tablet 40 mg PO DAILY Hold Instructions: until follow-up with PCP ondansetron 4 mg tablet,disintegrating 4 mg PO TIDP PRN (Reason: nausea and vomiting) Referrals Follow up/Referrals: Skyler Garcia MD [Primary Care Provider] - See instructions Activity Restrictions/Add. Instructions Additional Instructions/Restrictions: At this time was felt you are safe to be discharged home. If new or worsening symptoms please do not hesitate to return for continued evaluation. Please follow-up with your neurologist and family medicine doctor as discussed. Clinical Impressions Clinical Impression: Acute hip pain Discharge ED Provider: Johnathon Irizarry General Adult HPI General Chief complaint: Extremity Injury, Lower Stated complaint: numbing on Rt side Time Seen by Provider: 01/04/23 08:33 History of Present Illness HPI narrative: Patient is a 72-year-old male with past medical history of Parkinson's, solitary kidney who presents to the emergency department for evaluation of right hip pain. Onset was subacute, last 2 weeks, intermittently radiating to his knee. Patient has tingly feeling on bilateral feet. No urinary incontinence, no saddle anesthesia. He has had urinary frequency. At baseline patient requires controlled substances for chronic pain. No other acute complaints at this time. Related Data Home Medications Medication Instructions Recorded Confirmed folic acid 1 mg tablet 1 mg PO DAILY Supplement 09/22/22 12/26/22 furosemide 40 mg tablet 40 mg PO DAILY Fluid 09/22/22 12/26/22 ondansetron 4 mg disintegrating 4 mg PO TIDP PRN nausea and 09/22/22 12/26/22 tablet vomiting pantoprazole 40 mg tablet,delayed mg PO 12/26/22 12/26/22 release simvastatin 10 mg tablet 10 mg PO HS 12/26/22 12/26/22 Previous Rx's Medication Instructions Recorded allopurinol 100 mg tablet See Rx Instructions .Route 10/18/22 .COMPLEX #90 tabs carbidopa 25 mg-levodopa 100 mg 3 tab PO TID Parkinsonian syndrome 11/06/22 tablet #900 tabs hydrocodone 7.5 mg-acetaminophen 1 tab PO QID MODERATE TO SEVERE 12/26/22 325 mg tablet PAIN #120 tabs mupirocin 2 % topical ointment 1 applic topical BID #22 grams 12/26/22 oxycodone 5 mg tablet 5 mg PO TID #9 tabs 12/26/22 prednisone 20 mg tablet 20 mg PO BID 3 days #6 tabs 12/26/22 Allergies Allergy/AdvReac Type Severity Reaction Status Date / Time No Known Allergies Allergy Verified 12/26/22 13:08 [facility] Disclaimer: The information contained in this section may have been updated after the patient was seen, as this information can be updated by other users. Medical History COPD (chronic obstructive pulmonary disease) Daytime somnolence DM type 2 (diabetes mellitus, type 2) GERD (gastroesophageal reflux disease) Heart failure Parkinson disease Single kidney TIA (transient ischemic attack) Surgical History
[2023-01-04 08:58] LABS: Basophils % 0.4 % (0.1-2.0); Eosinophils # 0.1 K/mm3 (0.0-0.4); Eosinophils % 1.4 % (0.1-12.0); Hematocrit 37.1 % (42.0-52.0); Hemoglobin 12.4 g/dL (14.1-18.0); Lymphocytes # 0.8 K/mm3 (0.7-4.5); Lymphocytes % 15.1 % (10-50); Mean Corpuscular HGB Conc 33.5 g/dL (31.8-35.4); Mean Corpuscular Hemoglobin 33.2 pg (27.0-31.2); Mean Platelet Volume 8.6 fl (7.4-10.4); Monocytes # 0.3 K/mm3 (0.1-1.0); Monocytes % 5.5 % (1.7-9.3); Neutrophils # 4.2 K/mm3 (1.8-7.8); Neutrophils % 77.5 % (37.0-80.0); Platelet Count 162 K/mm3 (142-424); Red Blood Count 3.75 M/mm3 (4.60-6.20); Red Cell Distribution Width 14.4 % (11.5-17.5); White Blood Count 5.5 K/mm3 (4.8-10.8)
[2023-01-04 08:59] LABS: Chloride 98 mmol/L (98-107)
[2023-01-04 09:00] LABS: Potassium 4.9 mmoL/L (3.5-5.1); Sodium 135 mmol/L (136-145)
[2023-01-04 09:02] LABS: Microscopic, Urine URINE MICROSCOPIC (MICROSCOPIC)
[2023-01-04 09:02] LABS: Alanine Aminotransferase 8 U/L (12-78); Anion Gap 10.9 mEq/L (5-15); Aspartate Amino Transferase 23 U/L (17-59); Blood Urea Nitrogen 35 mg/dl (9-20); Carbon Dioxide 31 mmol/L (22.0-30.0); Creatinine Clearance Estimated 48 mL/min (50-200); Estimated Glomerular Filt Rate 46 ml/min (>60); GFR (African American) 56 ML/MIN (>60)
[2023-01-04 09:03] LABS: Albumin Level 4.2 g/dl (3.5-5.0); Albumin/Globulin Ratio 1.8 (1.1-1.8); Alkaline Phosphatase 94 U/L (38-126); Bilirubin,Total 1.7 mg/dl (0.2-1.3); Calcium 8.9 mg/dl (8.4-10.2); Globulin 2.3 g/dL (1.3-3.2); Glucose 94 mg/dl (74-100); Total Protein,Serum 6.5 g/dl (6.3-8.2)
--- NOTE | 2023-01-04 09:03 | PC.NURSE ---
PT TO XR
[2023-01-04 09:04] LABS: Appearance,Urine CLEAR (Clear); Bilirubin,Urine Negative (Negative); Blood, Urine Negative (Negative); Color,Urine YELLOW (Yellow); Glucose,Urine (UA) Negative (Negative); Ketones,Urine TRACE (Negative); Leukocyte Esterase,Urine Negative (Negative); Nitrate,Urine Negative (Negative); PH,Urine 6.5 (5.0-8.5); Protein,Urine Negative (Negative); Specific Gravity, Urine 1.015 (1.005-1.030)
--- NOTE | 2023-01-04 09:16 | PC.NURSE ---
PT RETURNED FROM XR
--- NOTE | 2023-01-04 09:25 | PC.NURSE ---
rounded on pt he is having vascular ultrosound @ [facility]
--- NOTE | 2023-01-04 09:30 | PC.NURSE ---
PT MEDICATED PER EMAR, DOPPLER AT BEDSIDE. NO NEEDS VOICED
--- NOTE | 2023-01-04 10:55 | US_ITS ---
FINAL REPORT CLINICAL HISTORY: HTN, HLD, DM, swollen sore right ankle FINDINGS: BILATERAL ANKLE BRACHIAL INDICES Pressure indices are as follows are: RIGHT LOWER EXTREMITY Ankle brachial pressure index: 1.05 Toe brachial pressure index: 0.51 COMMENTS: Normal LEFT LOWER EXTREMITY Ankle brachial pressure index: 0.9 Toe brachial pressure index: 0.53 COMMENTS: Normal IMPRESSION: No evidence of significant obstructive peripheral vascular disease of the lower extremities. Reviewed, Interpreted and Dictated by Hung Stovall III, MD Transcribed by Sherita Lira Authenticated and [facility]
--- NOTE | 2023-01-04 11:03 | PC.NURSE ---
vascular here for JODI
--- NOTE | 2023-01-04 11:54 | PC.NURSE ---
DR LI AT BEDSIDE TO UPDATE PT AND FAMILY ON POC
== END 2023-01-04 12:10 | disposition home or self-care (01) ==
PROVIDERS: Emergency Provider Emergency Medicine; PCP Emergency Medicine
DX: M25.551 Pain in right hip (principal); Z87.891 Personal history of nicotine dependence; M79.661 Pain in right lower leg; R09.89 Other specified symptoms and signs involving the circulatory and respiratory systems
CPT/HCPCS: 73502; 73552; 80053; 81001; 85025; 93923; 93971; 96374; 96376; 99285

== ENCOUNTER → 2023-02-23 09:38 | Outpatient (CLI) | payer MEDICARE, OTHER, SELFPAY ==
[2023-02-22 18:51] LABS: Amphetamine/Metha Screen,Urine Negative ng/ml (<1000); Barbiturates Screen,Urine Negative ng/ml (<200)
[2023-02-22 18:53] LABS: Benzodiazepines Screen,Urine Negative ng/ml (<200); Cannabinoid Screen,Urine Negative ng/ml (<50)
[2023-02-22 18:54] LABS: Cocaine Screen,Urine Negative ng/ml (<300)
[2023-02-22 18:55] LABS: Methadone Screen,Urine Negative ng/ml (<300); Opiate Screen,Urine Positive ng/ml (<300)
[2023-02-22 18:56] LABS: Phencyclidine Screen,Urine Negative ng/ml (<25)
== END ==
PROVIDERS: PCP Emergency Medicine; Visit Provider Emergency Medicine
DX: Z79.899 Other long term (current) drug therapy (principal)
CPT/HCPCS: 80305

== ENCOUNTER → 2023-05-16 10:15 | Outpatient (CLI) | payer MEDICARE, OTHER, SELFPAY ==
[2023-05-16 10:31] LABS: Microscopic, Urine URINE MICROSCOPIC (MICROSCOPIC)
[2023-05-16 10:49] LABS: Hematocrit 36.5 % (42.0-52.0); Hemoglobin 11.8 g/dL (14.1-18.0); Mean Corpuscular HGB Conc 32.3 g/dL (31.8-35.4); Mean Corpuscular Volume 98.8 fl (80-94); Platelet Count 127 K/mm3 (142-424); Red Blood Count 3.69 M/mm3 (4.60-6.20); Red Cell Distribution Width 13.9 % (11.5-17.5); White Blood Count 4.9 K/mm3 (4.8-10.8)
[2023-05-16 11:01] LABS: Appearance,Urine CLEAR (Clear); Bilirubin,Urine Negative (Negative); Blood, Urine TRACE-I (Negative); Color,Urine YELLOW (Yellow); Glucose,Urine (UA) Negative (Negative); Ketones,Urine TRACE (Negative); Leukocyte Esterase,Urine Negative (Negative); Nitrate,Urine Negative (Negative); PH,Urine 5.5 (5.0-8.5); Protein,Urine TRACE (Negative); Specific Gravity, Urine >= 1.030 (1.005-1.030); Urobilinogen,Urine 0.2 EU/dl (0.2)
[2023-05-16 11:31] LABS: Bacteria,Urine Trace /lpf; RBC,Urine Occasional #/hpf (0-3); Squamous Epithelial Cell,Urine Occasional #/hpf (0-5)
[2023-05-16 11:48] LABS: Anion Gap 9.3 mEq/L (5-15); Blood Urea Nitrogen 24 mg/dl (9-20); Calcium 8.8 mg/dl (8.4-10.2); Carbon Dioxide 26 mmol/L (22.0-30.0); Chloride 106 mmol/L (98-107); Creatinine,Urine Random 250 mg/dL (Not Estab.); Estimated Glomerular Filt Rate 50 ml/min (>60); GFR (African American) 60 ML/MIN (>60); Glucose 153 mg/dl (74-100); Phosphorous 3.6 mg/dl (2.5-4.5); Potassium 4.3 mmoL/L (3.5-5.1); Sodium 137 mmol/L (136-145)
[2023-05-16 11:57] LABS: Intact Parathyroid Hormone 136.7 pg/mL (7.5-53.5)
[2023-05-16 12:04] LABS: 25-OH Vitamin D, Total 37.7 ng/mL (30-100)
== END ==
PROVIDERS: Internal Medicine Nephrology; PCP Emergency Medicine; Visit Provider Radiology Diagnostic Radiology
DX: N18.30 Chronic kidney disease, stage 3 unspecified (principal)
CPT/HCPCS: 36415; 80069; 81001; 82306; 82570; 83970; 84155; 85014; 85018; 85048; 85049

== ENCOUNTER 2023-05-21 10:00 | Day surgery (SDC) | payer MEDICARE, OTHER, SELFPAY ==
[2023-05-20 14:31] VITALS: BMI 26.6
[2023-05-21 10:13] VITALS: BP 182/112; PULSE 58; RESP 18; TEMP 36.5; O2SAT 100
[2023-05-21 10:37] VITALS: BP 186/92; PULSE 60; RESP 18; O2SAT 99
== END 2023-05-21 11:02 | disposition home or self-care (01) ==
LOC: OUTP 10:02
PROVIDERS: PCP Emergency Medicine; Visit Provider Ophthalmology
PROC: (CPT 66821; principal; 2023-05-21 10:30)
DX: H26.40 Unspecified secondary cataract (principal)
CPT/HCPCS: 66821

== ENCOUNTER 2023-08-16 18:29 | Emergency (ER) | payer MEDICARE, OTHER, SELFPAY ==
[2023-08-16] VITALS (7 sets, daily range): BP systolic 121–149; BP diastolic 50–89; PULSE 71–87; RESP 15–22; TEMP 36.6–36.8; O2SAT 96–100; BMI 26.6
--- NOTE | 2023-08-16 18:53 | PC.NURSE ---
Dr. Chan at for pt eval
--- NOTE | 2023-08-16 18:58 | CT_ITS ---
PROCEDURE INFORMATION: Exam: CTA Neck With Contrast Exam date and time: 08/16/2023 7:10 PM Age: 73 years old Clinical indication: Stroke-like symptoms; Other: Acute vision loss; Additional info: Acute vision loss, dizziness TECHNIQUE: Imaging protocol: Computed tomographic angiography of the neck with contrast. Exam focused on the cervical segments of the vasculature. 3D rendering (Not supervised by radiologist): MIP and/or 3D reconstructed images were created by the technologist. Radiation optimization: All CT scans at this facility use at least one of these dose optimization techniques: automated exposure control; mA and/or kV adjustment per patient size (includes targeted exams where dose is matched to clinical indication); or iterative reconstruction. Contrast material: ISOVUE 370; Contrast volume: 100 ml; Contrast route: INTRAVENOUS (IV); REPORTING DATA: Count of CT and Cardiac NM exams in prior 12 months: This patient has received [address] and 0 known cardiac nuclear medicine studies in the 12 months prior to the current study. COMPARISON: CT ANGIO HEAD 08/16/2023 7:10 PM FINDINGS: Right common carotid artery: No stenosis. No dissection or occlusion. Right internal carotid artery: Mild stenosis of the extracranial segment. Less than 50% by NASCET criteria. No dissection or occlusion. Right external carotid artery: No occlusion or stenosis of the origin. Left common carotid artery: No stenosis. No dissection or occlusion. Left internal carotid artery: Mild stenosis of the extracranial segment. Less than 50% by NASCET criteria. No dissection or occlusion. Left external carotid artery: No occlusion or stenosis of the origin. Right vertebral artery: No stenosis. No dissection or occlusion. Left vertebral artery: No stenosis. No dissection or occlusion. Soft tissues: Dominant left lobe thyroid mass 3.9 x 2.5 cm. Thyroid sonogram with possible biopsy recommended. Bones/joints: No acute fracture. IMPRESSION: 1. No CTA evidence of hemodynamically significant extracranial cerebrovascular stenosis. 2. Dominant left lobe thyroid mass 3.9 x 2.5 cm. Thyroid sonogram with possible biopsy recommended. COMMENTS: Consistent with the [employer]'s Incidental Findings Committee white paper (J Am Karishma Radiol 2015): In patients aged 35 years and older with an incidental thyroid nodule equal to or greater than 1.[address], MRI or extrathyroidal US, further evaluation with dedicated thyroid US is recommended for patients with normal life expectancy and without comorbidities. For smaller nodules without suspicious features, no further evaluation or follow up is recommended. REFERENCES: NASCET CRITERIA. The degree of stenosis in the cervical segment of the internal carotid artery is based on NASCET criteria. Normal is no stenosis. Mild is less than 50% stenosis. Moderate is 50-69% stenosis. Severe is 70% to 99% stenosis. Total occlusion is no detectable patent lumen.
--- NOTE | 2023-08-16 18:58 | CT_ITS ---
PROCEDURE INFORMATION: Exam: CT Head Without Contrast Exam date and time: 08/16/2023 7:05 PM Age: 73 years old Clinical indication: Stroke-like symptoms; Other: Acute vision loss; Additional info: Acute vision loss, dizziness TECHNIQUE: Imaging protocol: Computed tomography of the head without contrast. Radiation optimization: All CT scans at this facility use at least one of these dose optimization techniques: automated exposure control; mA and/or kV adjustment per patient size (includes targeted exams where dose is matched to clinical indication); or iterative reconstruction. Other technique: STROKE PROTOCOL was implemented. REPORTING DATA: Count of CT and Cardiac NM exams in prior 12 months: This patient has received [address] and 0 known cardiac nuclear medicine studies in the 12 months prior to the current study. COMPARISON: BRAINWO MR head/brain wo con 06/27/2018 11:20 AM FINDINGS: Brain: Periventricular and subcortical small vessel ischemic changes. Mild atrophy associated. No acute hemorrhage, mass effect, midline shift, or extra-axial fluid collection. Cerebral ventricles: No ventriculomegaly. Paranasal sinuses: Visualized sinuses are unremarkable. No fluid levels. Mastoid air cells: Visualized mastoid air cells are well aerated. Bones/joints: Unremarkable. No acute fracture. Soft tissues: Unremarkable. IMPRESSION: 1. Small-vessel ischemic changes bilaterally. 2. No acute large vessel occlusion. ASSESSMENT: ASPECTS (Grace Stroke Program Early CT Score) is 10.
--- NOTE | 2023-08-16 18:58 | CT_ITS ---
PROCEDURE INFORMATION: Exam: CTA Head With Contrast, Arteriography Exam date and time: 08/16/2023 7:10 PM Age: 73 years old Clinical indication: Stroke-like symptoms; Other: Acute vision loss; Additional info: Acute vision loss dizziness TECHNIQUE: Imaging protocol: Computed tomographic angiography of the head with contrast. Exam focused on the arteries. 3D rendering (Not supervised by radiologist): MIP and/or 3D reconstructed images were created by the technologist. Radiation optimization: All CT scans at this facility use at least one of these dose optimization techniques: automated exposure control; mA and/or kV adjustment per patient size (includes targeted exams where dose is matched to clinical indication); or iterative reconstruction. Contrast material: ISOVUE 370; Contrast volume: 100 ml; Contrast route: INTRAVENOUS (IV); REPORTING DATA: Count of CT and Cardiac NM exams in prior 12 months: This patient has received [address] and 0 known cardiac nuclear medicine studies in the 12 months prior to the current study. COMPARISON: CT HEAD/BRAIN WO CON 08/16/2023 7:05 PM FINDINGS: ANTERIOR CIRCULATION: Right internal carotid artery: Intracranial segment is patent with no significant stenosis. No aneurysm. Right middle cerebral artery: No occlusion or significant stenosis. No aneurysm. Right anterior cerebral artery: No occlusion or significant stenosis. No aneurysm. Left internal carotid artery: Intracranial segment is patent with no significant stenosis. No aneurysm. Left middle cerebral artery: No occlusion or significant stenosis. No aneurysm. Left anterior cerebral artery: No occlusion or significant stenosis. No aneurysm. POSTERIOR CIRCULATION: Right vertebral artery: No occlusion or significant stenosis. No aneurysm. Left vertebral artery: No occlusion or significant stenosis. No aneurysm. Basilar artery: No occlusion or significant stenosis. No aneurysm. Right posterior cerebral artery: No occlusion or significant stenosis. No aneurysm. Left posterior cerebral artery: No occlusion or significant stenosis. No aneurysm. Brain: No definite mass, mass effect, or midline shift. Cerebral ventricles: No ventriculomegaly. Bones/joints: Unremarkable. No acute fracture. Soft tissues: Unremarkable. Thyroid: Dominant left lobe thyroid mass 3.9 x 2.5 cm. Thyroid sonogram with possible biopsy recommended. IMPRESSION: 1. Dominant left lobe thyroid mass 3.9 x 2.5 cm. Thyroid sonogram with possible biopsy recommended. 2. No acute large vessel occlusion identified.
--- NOTE | 2023-08-16 19:00 | PC.NURSE ---
stroke alert per dr Chan
--- NOTE | 2023-08-16 19:06 | HMH.EDGENADL ---
Discharge Plan Disposition Patient Disposition: Xfer Other Chief Complaint: Eye Problems Prescriptions Prescriptions: No Action entacapone 200 mg tablet 200 mg PO QID Qty: 120 6RF Rx Instructions: administer at the same time as l-dopa/carbidopa dose carbidopa-levodopa 50-200 mg tablet extended release 1 tab PO BID Qty: 180 3RF Rx Instructions: 1 p.o. twice daily gabapentin 100 mg capsule 100 mg PO BID Qty: 60 1RF hydrocodone-acetaminophen 7.5-325 mg tablet 1 tab PO QID Qty: 120 0RF simvastatin 20 mg tablet 20 mg PO HS mineral oil Oil 15 ml PO DAILY PRN carbidopa-levodopa 25-100 mg tablet 3 tab PO TID lactulose 10 gram/15 mL (15 mL) solution 10 g PO DAILY Qty: 600 3RF furosemide [Lasix] 20 mg tablet 20 mg PO DAILY PRN (Reason: .) allopurinol 100 mg tablet See Rx Instructions .ROUTE .COMPLEX Qty: 90 2RF Dose Instruction: TAKE ONE TABLET BY MOUTH EVERY DAY Rx Instructions: TAKE ONE TABLET BY MOUTH EVERY DAY folic acid 1 mg tablet See Rx Instructions .ROUTE .COMPLEX Qty: 90 4RF Dose Instruction: TAKE ONE TABLET BY MOUTH EVERY DAY Rx Instructions: TAKE ONE TABLET BY MOUTH EVERY DAY pantoprazole 40 mg tablet,delayed release (DR/EC) 40 mg PO BID Rx Instructions: TAKE ONE TABLET BY MOUTH TWICE DAILY Referrals Follow up/Referrals: Parul Damon PA [Primary Care Provider] - See instructions Clinical Impressions Clinical Impression: Acute ischemic stroke, Binocular vision loss Discharge ED Provider: Salty Chan Adult HPI General Chief complaint: Eye Problems Stated complaint: Loss of vision, dizzy Time Seen by Provider: 08/16/23 18:36 Mode of Arrival: Wheelchair Source of Information: Patient and Relative Limitations: No Limitations Description of Symptoms (Recalled from ER Triage Doc. by RN): c/o flashes of light, looks like someone is pulling the shades up and down , dizzy, symoptoms started about half an hour before arrival. PT had an eye sx 3 months ago, prior pt got pellet shots in his eye. History of Present Illness HPI narrative: 73-year-old male, history of chronic alcohol use, 4-5 drinks per day, prior ischemic stroke without deficits, Parkinson's, gout, recent cataract surgery and laser surgery of the eyes bilaterally, renal cancer with history of unilateral nephrectomy presents with acute onset neurologic symptoms. Last known normal 6:15 PM. Patient had acute onset of vision loss bilaterally, can still see light and movement but reports that he feels like I just cant see right. Reports that he felt like the shades were pulled down over my eyes . Per family at bedside, patient is slurring his words more than normal. Patient also complained of dizziness at time of onset. Patient reports headache. Related Data Home Medications Medication Instructions Recorded Confirmed pantoprazole 40 mg tablet,delayed 40 mg PO BID REFLUX 05/20/23 07/29/23 release carbidopa 25 mg-levodopa 100 mg 3 tab PO TID Parkinson 07/29/23 tablet furosemide 20 mg tablet (Lasix) 20 mg PO DAILY PRN . 07/29/23 07/29/23 mineral oil 15 ml PO DAILY PRN 07/29/23 07/29/23 simvastatin 20 mg tablet 20 mg PO HS 07/29/23 07/29/23 Previous Rx's Medication Instructions Recorded entacapone 200 mg tablet 200 mg PO QID Parkinsons #120 tabs 03/28/23 carbidopa ER 50 mg-levodopa 200 mg 1 tab PO BID Parkinson's #180 tabs 06/05/23 tablet,extended release gabapentin 100 mg capsule 100 mg PO BID . #60 caps 06/24/23 hydrocodone 7.5 mg-acetaminophen 1 tab PO QID MODERATE TO SEVERE 06/24/23 325 mg tablet PAIN #120 tabs allopurinol 100 mg tablet See Rx Instructions .Route 07/18/23 .COMPLEX #90 tabs lactulose 10 gram/15 mL (15 mL) 10 g (15 mL) PO DAILY #600 mL 07/29/23 oral solution folic acid 1 mg tablet See Rx Instructions .Route 08/12/23 .COMPLEX #90 tabs Allergies Allergy/AdvReac Type Se
--- NOTE | 2023-08-16 19:08 | PC.NURSE ---
I spoke with Beck GRIMES to get a dose for TPA if needed. Beck states it would be a 7mg push then 67mg infused over 1 hour
[2023-08-16 19:11] LABS: Basophils % 0.2 % (0.1-2.0); Eosinophils # 0.1 K/mm3 (0.0-0.4); Eosinophils % 1.1 % (0.1-12.0); Lymphocytes # 0.9 K/mm3 (0.7-4.5); Lymphocytes % 14.3 % (10-50); Mean Corpuscular HGB Conc 34.1 g/dL (31.8-35.4); Mean Corpuscular Hemoglobin 33.1 pg (27.0-31.2); Mean Corpuscular Volume 96.9 fl (80-94); Mean Platelet Volume 9.1 fl (7.4-10.4); Monocytes # 0.3 K/mm3 (0.1-1.0); Neutrophils # 5.2 K/mm3 (1.8-7.8); Neutrophils % 80.4 % (37.0-80.0); Platelet Count 161 K/mm3 (142-424); Red Blood Count 3.92 M/mm3 (4.60-6.20); Red Cell Distribution Width 13.6 % (11.5-17.5); White Blood Count 6.5 K/mm3 (4.8-10.8)
--- NOTE | 2023-08-16 19:16 | ECG_ITS ---
APPROVED REPORT Exam: Resting ECG HR:86 bpm ECG Measurements Heart Rate 86 AXES MO 223 P 73 QRSd 111 QRS -56 QT 374 T 84 QTc 418 Conclusion SINUS RHYTHM WITH FIRST DEGREE AV BLOCK LEFT ANTERIOR FASCICULAR BLOCK [QRS AXIS <= -45, QR IN I, RS IN II] LATERAL MYOCARDIAL INFARCTION , OF INDETERMINATE AGE [40+ ms Q WAVE AND/OR ST/T ABNORMALITY IN I/aVL/V5/V6] ABNORMAL ECG UNCONFIRMED REPORT Electronically signed by : Pablo Wilkerson MD 08/17/2023 09:56:51
[2023-08-16 19:20] LABS: Activated Partial Thrombo Time 27.7 seconds (22.8-30.6); INR 1.02 (0.9-1.1)
[2023-08-16 19:23] LABS: Alanine Aminotransferase 6 U/L (12-78); Albumin Level 4.5 g/dl (3.5-5.0); Alkaline Phosphatase 98 U/L (38-126); Anion Gap 10.1 mEq/L (5-15); Aspartate Amino Transferase 21 U/L (17-59); Bilirubin,Total 0.7 mg/dl (0.2-1.3); Blood Urea Nitrogen 32 mg/dl (9-20); Calcium 8.4 mg/dl (8.4-10.2); Carbon Dioxide 27 mmol/L (22.0-30.0); Chloride 101 mmol/L (98-107); Creatinine Clearance Estimated 39 mL/min (50-200); Estimated Glomerular Filt Rate 35 ml/min (>60); GFR (African American) 42 ML/MIN (>60); Globulin 2.2 g/dL (1.3-3.2); Glucose 147 mg/dl (74-100); Potassium 4.1 mmoL/L (3.5-5.1); Sodium 134 mmol/L (136-145); Total Protein,Serum 6.7 g/dl (6.3-8.2)
--- NOTE | 2023-08-16 19:29 | PC.NURSE ---
Called [facility] for Dr Chan about possible transfer of pt for Stroke. CR
[2023-08-16 19:38] LABS: POC Glucose,Bedside 139 (70-110)
--- NOTE | 2023-08-16 20:20 | PC.NURSE ---
Called Llii at [facility] to give report, she stated that she had not assigned the bed yet but would have them call me back shortly.
--- NOTE | 2023-08-16 20:45 | PC.NURSE ---
Report called to MIKE Toro
== END 2023-08-16 21:31 | disposition other institution (70) ==
PROVIDERS: Emergency Provider Emergency Medicine; PCP Physician Assistant
DX: I63.9 Cerebral infarction, unspecified (principal); G20.C Parkinsonism, unspecified; M10.9 Gout, unspecified; J44.9 Chronic obstructive pulmonary disease, unspecified; E11.9 Type 2 diabetes mellitus without complications; I50.9 Heart failure, unspecified; Z85.528 Personal history of other malignant neoplasm of kidney; I44.0 Atrioventricular block, first degree
CPT/HCPCS: 70450; 70496; 70498; 80053; 82962; 85025; 85610; 85730; 93005; 99291; Q9967

== ENCOUNTER 2023-10-16 19:31 | Outpatient (CLI) | payer MEDICARE, OTHER, SELFPAY ==
[2023-10-16 19:56] LABS: Basophils % 0.5 % (0.1-2.0); Eosinophils # 0.1 K/mm3 (0.0-0.4); Eosinophils % 0.8 % (0.1-12.0); Hematocrit 36.3 % (42.0-52.0); Hemoglobin 12.5 g/dL (14.1-18.0); Lymphocytes # 0.9 K/mm3 (0.7-4.5); Lymphocytes % 15.4 % (10-50); Mean Corpuscular HGB Conc 34.5 g/dL (31.8-35.4); Mean Corpuscular Hemoglobin 34.2 pg (27.0-31.2); Monocytes # 0.3 K/mm3 (0.1-1.0); Neutrophils # 4.3 K/mm3 (1.8-7.8); Neutrophils % 78.2 % (37.0-80.0); Platelet Count 138 K/mm3 (142-424); Red Blood Count 3.66 M/mm3 (4.60-6.20); Red Cell Distribution Width 15.2 % (11.5-17.5); White Blood Count 5.5 K/mm3 (4.8-10.8)
[2023-10-16 20:00] LABS: Alanine Aminotransferase 5 U/L (12-78); Albumin Level 4.4 g/dl (3.5-5.0); Albumin/Globulin Ratio 2.3 (1.1-1.8); Alkaline Phosphatase 107 U/L (38-126); Anion Gap 7.4 mEq/L (5-15); Aspartate Amino Transferase 17 U/L (17-59); Blood Urea Nitrogen 27 mg/dl (9-20); Calcium 9.2 mg/dl (8.4-10.2); Carbon Dioxide 29 mmol/L (22.0-30.0); Chloride 107 mmol/L (98-107); Chol/HDL Ratio 1.9 (1-3.5); Cholesterol 125 mg/dl (140-200); Estimated Glomerular Filt Rate 54 ml/min (>60); GFR (African American) 65 ML/MIN (>60); Globulin 1.9 g/dL (1.3-3.2); Glucose 105 mg/dl (74-100); HDL Cholesterol 65 mg/dl (40-60); Potassium 4.4 mmoL/L (3.5-5.1); Sodium 139 mmol/L (136-145); Total Protein,Serum 6.3 g/dl (6.3-8.2); Triglycerides 105 mg/dl (30-150); VLDL Cholesterol 21 mg/dL (0-40)
[2023-10-16 20:11] LABS: Direct LDL Cholesterol 37.23 mg/dL (100-129)
[2023-10-16 20:31] LABS: Prostate Specific Ag Screen 1.7 ng/ml (0.0-4.0)
[2023-10-16 20:50] LABS: Vitamin B12 230 pg/mL (239-931)
[2023-10-16 21:56] LABS: Ferritin 98.6 ng/ml (17.9-464)
== END 2023-10-16 23:59 ==
LOC: LAB.DROPOF 19:32
PROVIDERS: PCP Internal Medicine; Visit Provider Internal Medicine
DX: E78.5 Hyperlipidemia, unspecified (principal); D51.0 Vitamin B12 deficiency anemia due to intrinsic factor deficiency; E10.22 Type 1 diabetes mellitus with diabetic chronic kidney disease; N18.30 Chronic kidney disease, stage 3 unspecified; D64.9 Anemia, unspecified; I63.9 Cerebral infarction, unspecified; Z12.5 Encounter for screening for malignant neoplasm of prostate; Z79.899 Other long term (current) drug therapy
CPT/HCPCS: 80053; 80061; 82043; 82607; 82728; 85025; G0103

== ENCOUNTER 2023-11-14 09:54 | Emergency (ER) | payer MEDICARE, OTHER, SELFPAY ==
[2023-11-14] VITALS (9 sets, daily range): BP systolic 125–155; BP diastolic 66–88; PULSE 89–94; RESP 15–18; TEMP 36.7–37.1; O2SAT 91–95; BMI 20.9
--- NOTE | 2023-11-14 10:06 | XR_ITS ---
FINAL REPORT CLINICAL HISTORY: Shortness of breath COMPARISON: 09/22/2022 FINDINGS: A single portable view of the chest was obtained. Cardiomegaly is noted. Pulmonary vascularity is within normal limits. The mediastinum is within normal limits. Mild bibasilar opacities favor atelectasis over pneumonia. The bony thorax is intact. IMPRESSION: Mild bibasilar opacities favor atelectasis over pneumonia. Reviewed, Interpreted and Dictated by Hung Stovall III, MD Transcribed by Aimee Luu Authenticated and [facility]
--- NOTE | 2023-11-14 10:06 | CT_ITS ---
FINAL REPORT TECHNIQUE: Postcontrast axial images through the abdomen and pelvis were performed. This study was performed with techniques to keep radiation doses as low as reasonably achievable, (ALARA). Individualized dose reduction techniques using automated exposure control or adjustment of mA and/or kV according to the patient's size were employed. CLINICAL HISTORY: diffuse abd pain COMPARISON: 05/27/2021 FINDINGS: Abdomen: There is mild bibasilar atelectasis. The liver is normal in size and attenuation. The patient is status post cholecystectomy. There is mild biliary ductal dilatation. The spleen is enlarged measuring 17 cm. The adrenals are normal. The pancreas is unremarkable. Moderate vascular calcification is identified. Patient is status post left nephrectomy. There is a mass in the anterolateral right kidney measuring 22 mm, previously measured 19 mm. This does not appear to represent a simple cyst, complicated cyst is favored. There are inguinal hernias containing fat. The aorta is normal in caliber. No free fluid or adenopathy is identified. No findings for mechanical bowel obstruction are identified. Pelvis: The appendix is not identified. The urinary bladder is unremarkable. No free fluid, free air, abscess or adenopathy is identified. IMPRESSION: Status post left nephrectomy. Splenomegaly. Favor complicated right renal cyst. Reviewed, Interpreted and Dictated by Hung Stovall III, MD Transcribed by Bella Foster Authenticated and [facility]
--- NOTE | 2023-11-14 10:08 | HMH.EDGENADL ---
Discharge Plan Disposition Patient Disposition: Home, Self-Care Prescriptions Prescriptions: New azithromycin 250 mg tablet See Rx Instructions .ROUTE .COMPLEX Qty: 6 0RF Rx Instructions: For 250 mg dose pack: take 500 mg today (day 1), then 250 mg for 4 days (days 2-5) amoxicillin-pot clavulanate 875-125 mg tablet 1 tab PO BID 10 Days Qty: 20 0RF No Action entacapone 200 mg tablet 200 mg PO QID Qty: 120 6RF Rx Instructions: administer at the same time as l-dopa/carbidopa dose carbidopa-levodopa 50-200 mg tablet extended release 1 tab PO BID Qty: 180 3RF Rx Instructions: 1 p.o. twice daily simvastatin 20 mg tablet 20 mg PO HS carbidopa-levodopa 25-100 mg tablet 3 tab PO TID gabapentin 300 mg capsule 300 mg PO TID 30 Days Qty: 90 2RF hydrocodone-acetaminophen 7.5-325 mg tablet 1 tab PO QID 30 Days Qty: 120 0RF folic acid 1 mg tablet See Rx Instructions .ROUTE .COMPLEX Qty: 90 4RF Dose Instruction: TAKE ONE TABLET BY MOUTH EVERY DAY Rx Instructions: TAKE ONE TABLET BY MOUTH EVERY DAY furosemide 40 mg tablet See Rx Instructions .ROUTE .COMPLEX Qty: 90 3RF Dose Instruction: TAKE ONE TABLET BY MOUTH EVERY DAY Rx Instructions: TAKE ONE TABLET BY MOUTH EVERY DAY cyanocobalamin (vitamin B-12) 5,000 mcg tablet, sublingual 5,000 mcg sublingual DAILY Qty: 30 0RF allopurinol 100 mg tablet 100 mg PO DAILY pantoprazole 40 mg tablet,delayed release (DR/EC) 40 mg PO BID Rx Instructions: TAKE ONE TABLET BY MOUTH TWICE DAILY Activity Restrictions/Add. Instructions Additional Instructions/Restrictions: Your emergency evaluation today was largely unremarkable. On your chest x-ray there is a questionable atelectasis versus pneumonia but given your chronic medical problems we will err on the side of treating for pneumonia but this is a questionable diagnosis. Take antibiotics as prescribed. Lastly you did have significant liver test abnormalities which you have had in the past and please follow-up with your primary care doctor to follow these test results. No intra-abdominal emergency noted on your CT scan. Lastly regarding your Parkinson's disease with dyskinesia and fluctuation in your motor symptoms please follow-up with your neurologist as instructed. Clinical Impressions Clinical Impression: Parkinson's disease with dyskinesia, with fluctuations, Abdominal pain, Chest pain, Abnormal transaminases, CAP (community acquired pneumonia) Discharge ED Provider: Luis Nelson General Adult HPI General Chief complaint: Weakness Stated complaint: WEAKNESS Time Seen by Provider: 11/14/23 09:59 Mode of Arrival: EMS Source of Information: Patient and EMS Limitations: No Limitations Description of Symptoms (Recalled from ER Triage Doc. by RN): pt presents to ED with c/o ongoing weakness, functional decline. pt has hx of stroke and parkinsons. pt symptoms ongoing for the past few weeks. History of Present Illness HPI narrative: Patient is a 73-year-old with a history of Parkinson's disease presenting today with dyskinesia with significant fluctuations of his on and off periods. Patient states that he woke up this morning was having very difficult time moving fell to the floor was unable to get up. This is why EMS was called. Additionally been having chest pain over the last 24 hours and abdominal pain. His who is in the room has flulike symptoms right now. He also has had a cough for several months. No fevers chills or any other complaints at the moment. Related Data Home Medications Medication Instructions Recorded Confirmed pantoprazole 40 mg tablet,delayed 40 mg PO BID REFLUX 05/20/23 10/16/23 release carbidopa 25 mg-levodopa 100 mg 3 tab PO TID Parkinson 07/29/23 10/16/23 tablet simvastatin 20 mg tablet 20 mg PO HS 07/29/23 10/16/23 allopurinol 100 mg tablet 100 mg PO DAILY 08/16/23 10/16/23 Previous Rx's Medication Instructions Recorded entacapone 200 mg tablet 200 mg PO QID Parkinsons #120 tabs 03/28/23 carbidopa ER 50 mg-levodopa 200 mg 1 tab PO BID Parkinson's #180 tabs 06/05/23 tablet,extended release folic acid 1 mg tablet See Rx Instructions .Route 08/12/23 .COMPLEX #90 tabs furosemide 40 mg tablet See Rx Instructions .Route 09/13/23 .COMPLEX #90 tabs gabapentin 300 mg capsule 300 mg PO TID 30 days #90 caps 10/16/23 hydrocodone 7.5 mg-acetaminophen 1 tab PO QID 30 days #120 tabs 10/16/23 325 mg tablet cyanocobalamin (vitamin B-12) 5,000 mcg sublingual DAILY #30 tabs 10/25/23 5,000 mcg sublingual tablet amoxicillin 875 mg-potassium 1 tab PO BID 10 days #20 tabs 11/14/23 clavulanate 125 mg tablet azithromycin 250 mg tablet See Rx Instructions PO .COMPLEX #6 11/14/23 tabs Allergies Allergy/AdvReac Type Severity Reaction Status Date / Time mupirocin Allergy Verified 10/21/23 13:57 [facility] Disclaimer: The information contained in this section may have been updated after the patient was seen, as this information can be updated by other users. Medical History COPD (chronic obstructive pulmonary disease) Daytime somnolence DM type 2 (diabetes mellitus, type 2) Patient is not on any diabetic medications. A1c done in 2019 was 4.6 and September 2022 was 5.3. This does not give him a diagnosis of diabetes. I will mention this diagnosis again in his chart. GERD (gastroesophageal reflux disease) Heart failure Parkinson disease Patient s following with Dr. Kwok for his Parkinson's. Single kidney TIA (transient ischemic attack) Surgical History H/O left nephrectomy History of cholecystectomy Hx of appendectomy Family History Other No significant family history Social History Smoking Status: Former smoker tobacco type: cigarettes second hand exposure: Yes alcohol intake: current substance use type: denies use current occupational status: retired Travel in the last 8 weeks: None household members: spouse housing: house marital status: current occupational exposures/hazards: No caffeine: No ROS Obtained: Yes All systems reviewed & no additional complaints except as documented Physical Exam General General appearance: alert Respiratory Respiratory exam: Present normal lung sounds bilaterally; Absent respiratory distress Cardiovascular Cardiovascular exam: Present regular rate and normal rhythm Abdominal Exam Abdominal exam: Present soft, distention and tenderness (Diffusely tender nonfocal) Neurological Exam Neurological exam: Present alert, oriented X3 and other (Dyskinetic and radial extremities) Medical Decision Making Antoine Inquiry Pt receiving controlled substance: No Vital Signs: 11/14/23 09:54 11/14/23 10:00 11/14/23 10:30 Temperature 98.8 F Temperature Source Oral Pulse Rate 91 H 92 H Pulse Rate [Left Radial] 89 Respiratory Rate 18 Blood Pressure 135/70 125/66 Blood Pressure [Right Arm] 155/81 H Blood Pressure Mean Blood Pressure Mean [Right Arm] 105 02 Sat by Pulse Oximetry 95 95 92 L Oxygen Delivery Method Room Air Room Air Room Air 11/14/23 11:00 11/14/23 11:30 11/14/23 11:34 Temperature Temperature Source Pulse Rate 94 H 94 H 93 H Pulse Rate [Left Radial] Respiratory Rate Blood Pressure 141/79 H 151/71 H 148/81 H Blood Pressure [Right Arm] Blood Pressure Mean 84 Blood Pressure Mean [Right Arm] 02 Sat by Pulse Oximetry 91 L 93 L 93 L Oxygen Delivery Method Room Air Room Air 11/14/23 12:38 Temperature Temperature Source Pulse Rate 94 H Pulse Rate [Left Radial] Respiratory Rate Blood Pressure 147/76 H Blood Pressure [Right Arm] Blood Pressure Mean Blood Pressure Mean [Right Arm] 02 Sat by Pulse Oximetry 93 L Oxygen Delivery Method Room Air Lab Data Lab results reviewed: Yes I reviewed the patient's lab results. Lab Results 11/14/23 10:14: SARS-CoV-2 (PCR) Not detected, Influenza A Untype (PCR) Not detected, Influenza Type B (PCR) Not detected 11/14/23 10:15: WBC 8.1, RBC 3.79 L, Hgb 12.7 L, Hct 38.2 L, MCV 100.7 H, MCH 33.5 H, MCHC 33.3, RDW 14.2, Plt Count 140 L, MPV 9.0, Neut % (Auto) 90.9 H, Lymph % (Auto) 3.8 L, Gilchrist % (Auto) 4.8, Eos % (Auto) 0.2, Baso % (Auto) 0.2, Neut # (Auto) 7.4, Lymph # (Auto) 0.3 L, Gilchrist # (Auto) 0.4, Eos # (Auto) 0.0, Baso # (Auto) 0.0, Total Counted 100, Neutrophils % (Manual) 95 H, Lymphocytes % (Manual) 3 L, Monocytes % (Manual) 2, Platelet Estimate Slight decrease, RBC Morphology Normal, Sodium 135 L, Potassium 4.5, Chloride 108 H, Carbon Dioxide 28, Anion Gap 3.5 L, BUN 34 H, Creatinine 1.60 H, Estimated Creat Clear 34, Estimated GFR 42 L, Est GFR ( Amer) 51 L, Glucose 129 H, Calcium 9.0, Phosphorus 2.5, Magnesium 1.6, Total Bilirubin 3.9 H, AST 823 H*, ALT 71, Alkaline Phosphatase 315 H, Troponin I < 0.01, Total Protein 6.3, Albumin 4.0, Globulin 2.3, Albumin/Globulin Ratio 1.7, Lipase 262 11/14/23 10:15 11/14/23 10:15 Orders (Tests/Meds): ED MEDICATIONS Generic Name Dose Route Start Last Admin Trade Name Freq PRN Reason Stop Dose Admin Sodium Chloride 10 ml 11/14/23 10:26 Sodium Chloride 0.9% 10ml Flush Syringe IV 12/14/23 10:25 NEEDED PRN Maintain IV Site Sodium Chloride 10 ml 11/14/23 11:21 Sodium Chloride 0.9% 10ml Syr (Rad Only) IV 12/14/23 11:20 NEEDED PRN Maintain IV Site Discontinued Medications Generic Name Dose Route Start Last Admin Trade Name Freq PRN Reason Stop Dose Admin Lactated Ringer's 1,000 mls @ 999 mls/hr 11/14/23 10:15 11/14/23 10:26 Lactated Ringer's 1000 Ml Bag IV 11/14/23 11:15 999 mls/hr .Q1H1M ORIANA Administration Iopamidol 75 ml 11/14/23 11:21 11/14/23 11:23 Iopamidol-370 (76%);100ml Bottle IV 11/14/23 11:22 75 ml ONCE ONE Administration Morphine Sulfate 4 mg 11/14/23 10:06 11/14/23 10:25 Morphine 4mg/Ml Syringe IV 11/14/23 10:07 4 mg ONCE ONE Administration Ondansetron HCl 4 mg 11/14/23 10:06 11/14/23 10:25 Ondansetron 4mg/2ml Vial IV 11/14/23 10:07 4 mg ONCE ONE Administration ORDERS Category Date Time Status CT abdomen pelvis w con Stat Cat Scan 11/14/23 10:06 Completed CXR --portable [XR chest portable] Stat Exams 11/14/23 10:06 Completed CBC w/Auto Diff [Complete Blood Count Auto Diff] Stat Lab 11/14/23 10:15 Completed CMP [Comprehensive Metabolic Panel] Stat Lab 11/14/23 10:15 Completed Lipase Stat Lab 11/14/23 10:15 Completed Magnesium Stat Lab 11/14/23 10:15 Completed Phosphorous Stat Lab 11/14/23 10:15 Completed Rapid PCR Covid and Flu A/B Stat Lab 11/14/23 10:14 Completed Trop I [Troponin I] Stat Lab 11/14/23 10:15 Completed Troponin I Q3H Lab 11/14/23 13:15 Ordered Troponin I Q3H Lab 11/14/23 16:15 Ordered ECG Data Tracing #1: I reviewed this ECG and interpreted as documented below: Sinus rhythm ventricular rate of 91 first-degree AV block with NH interval of 210 negative flexion lead aVF left axis deviation no acute ischemic changes or significant conduction abnormalities aside from first-degree AV block Medical Decision Narrative: 73-year-old male here with multiple complaints including chest pain which we will evaluate with a troponin and EKG and chest x-ray. Additionally he has had a cough for several months we will make sure he does not have underlying pathology such as pneumonia or cancer on the chest x-ray as well. He has diffuse abdominal pain and tenderness will get a CT scan abdomen pelvis with contrast to further evaluate this. Lastly and more concerning Anival patient is having significant dyskinesia with fluctuations associated with his Parkinson's disease. They are followed by Dr. Kwok here at [facility] and I told them that Dr. Kwok does not take emergency consultations or inpatient consultations and that if they felt like they needed emergent management from a neurologic standpoint they would have to be transferred. Both the patient and the patient's declined this. They would like if there is no other emergent medical condition going on to be discharged home for outpatient management and follow-up. Reassessment 12:[address] scan and chest x-ray performed which I personally interpreted I do not see any acute intra-abdominal pathology on the CT scan and chest x-ray I do not appreciate any definitive cardiopulmonary emergency namely any dense consolidation however radiology read chest x-ray is atelectasis versus pneumonia most likely atelectasis but given the chronic cough that he has had and his underlying comorbidities we will treat the air on the side of caution with antibiotics for possible pneumonia. He has been made aware of this. CT scan unremarkable from radiology read standpoint of the patient's abdomen there are some nonspecific renal cysts. He also has some significant LFT abnormalities which she has had in the past. He has been aware of this in the past and has been following with multiple physicians he states regarding this and he we will follow-up again regarding this abdominal exam is benign no surgical pathology concern at the moment. Regarding his dyskinesia associate with his Parkinson's as stated above the patient and the patient's want him to go home he will follow-up outpatient with his neurologist. Critical Care Critical Care Time Critical Care Time: No
--- NOTE | 2023-11-14 10:14 | ECG_ITS ---
APPROVED REPORT Exam: Resting ECG HR:91 bpm ECG Measurements Heart Rate 91 AXES MN 210 P 69 QRSd 106 QRS -41 QT 335 T 73 QTc 384 Conclusion SINUS RHYTHM WITH FIRST DEGREE AV BLOCK LEFT AXIS DEVIATION [QRS AXIS < -30] POSSIBLE ANTERIOR MYOCARDIAL INFARCTION , OF INDETERMINATE AGE [30 ms Q WAVE IN V3/V4, OR R < 0.2 mV IN V4] ABNORMAL ECG UNCONFIRMED REPORT Electronically signed by : Polo Nelson, 11/14/2023 15:19:26
[2023-11-14 10:18] LABS: Coronavirus 19, PCR Not Detected (NotDetected); Influenza A, PCR Not Detected (NotDetected); Influenza B, PCR Not Detected (NotDetected)
[2023-11-14] MEDS: ONDANSETRON 4MG/2ML VIAL 4 MG IV (10:25)
[2023-11-14] MEDS: MORPHINE 4MG/ML SYRINGE 4 MG IV (10:25)
[2023-11-14] MEDS: LACTATED RINGERS 1000ML 1,000 ML 999 ML IV (10:26)
[2023-11-14 10:30] LABS: Basophils % 0.2 % (0.1-2.0); Eosinophils % 0.2 % (0.1-12.0); Hematocrit 38.2 % (42.0-52.0); Hemoglobin 12.7 g/dL (14.1-18.0); Lymphocytes # 0.3 K/mm3 (0.7-4.5); Lymphocytes % 3.8 % (10-50); Mean Corpuscular HGB Conc 33.3 g/dL (31.8-35.4); Mean Corpuscular Hemoglobin 33.5 pg (27.0-31.2); Mean Corpuscular Volume 100.7 fl (80-94); Monocytes # 0.4 K/mm3 (0.1-1.0); Monocytes % 4.8 % (1.7-9.3); Neutrophils # 7.4 K/mm3 (1.8-7.8); Neutrophils % 90.9 % (37.0-80.0); Platelet Count 140 K/mm3 (142-424); Red Blood Count 3.79 M/mm3 (4.60-6.20); Red Cell Distribution Width 14.2 % (11.5-17.5); White Blood Count 8.1 K/mm3 (4.8-10.8)
[2023-11-14 10:32] LABS: MANUAL DIFFERENTIAL MANUAL DIFFERENTIAL (MANUAL DIFF)
[2023-11-14 10:51] LABS: Chloride 108 mmol/L (98-107); Potassium 4.5 mmoL/L (3.5-5.1); Sodium 135 mmol/L (136-145)
[2023-11-14 10:52] LABS: Lipase 262 U/L (23-300)
[2023-11-14 10:53] LABS: Blood Urea Nitrogen 34 mg/dl (9-20); Creatinine Clearance Estimated 34 mL/min (50-200); Estimated Glomerular Filt Rate 42 ml/min (>60); GFR (African American) 51 ML/MIN (>60)
[2023-11-14 10:54] LABS: Alanine Aminotransferase 71 U/L (12-78); Albumin/Globulin Ratio 1.7 (1.1-1.8); Alkaline Phosphatase 315 U/L (38-126); Anion Gap 3.5 mEq/L (5-15); Bilirubin,Total 3.9 mg/dl (0.2-1.3); Carbon Dioxide 28 mmol/L (22.0-30.0); Globulin 2.3 g/dL (1.3-3.2); Glucose 129 mg/dl (74-100); Magnesium 1.6 mg/dl (1.6-2.3); Phosphorous 2.5 mg/dl (2.5-4.5); Total Protein,Serum 6.3 g/dl (6.3-8.2)
[2023-11-14 10:55] LABS: Lymphocytes % 3 % (10-50); Monocytes % 2 % (2-9); Neutrophils % 95 % (42-76); Platelet Estimate Slight Decrease; RBC Morphology Normal; Total Cells Counted 100
[2023-11-14 11:10] LABS: Troponin I < 0.01 ng/ml (0.00-0.034)
[2023-11-14 11:11] LABS: Aspartate Amino Transferase 823 U/L (17-59)
[2023-11-14] MEDS: IOPAMIDOL-370 (76%);100ML BOTTLE 75 ML IV (11:23)
--- NOTE | 2023-11-14 11:23 | PC.NURSE ---
PT GONE TO CT
--- NOTE | 2023-11-14 11:30 | PC.NURSE ---
pt back to room from CT
== END 2023-11-14 13:20 | disposition home or self-care (01) ==
PROVIDERS: Emergency Provider Student in an Organized Health Care Education/Training Program; PCP Internal Medicine
DX: R07.9 Chest pain, unspecified (principal); J18.9 Pneumonia, unspecified organism; R10.9 Unspecified abdominal pain; R74.8 Abnormal levels of other serum enzymes; G20.B2 Parkinson's disease with dyskinesia, with fluctuations; R94.31 Abnormal electrocardiogram [ECG] [EKG]; J44.9 Chronic obstructive pulmonary disease, unspecified; E11.9 Type 2 diabetes mellitus without complications; K21.9 Gastro-esophageal reflux disease without esophagitis; Z87.891 Personal history of nicotine dependence
CPT/HCPCS: 71045; 74177; 80053; 83690; 83735; 84100; 84484; 85007; 85025; 87636; 93005; 96361; 96374; 96375; 99285; J2405; Q9967

== ENCOUNTER 2023-12-05 11:25 | Outpatient (CLI) | payer MEDICARE, OTHER, SELFPAY ==
[2023-12-05 11:35] LABS: Microscopic, Urine URINE MICROSCOPIC (MICROSCOPIC)
[2023-12-05 12:06] LABS: Hematocrit 37.4 % (42.0-52.0); Hemoglobin 12.2 g/dL (14.1-18.0); Mean Corpuscular HGB Conc 32.7 g/dL (31.8-35.4); Mean Corpuscular Hemoglobin 32.8 pg (27.0-31.2); Mean Corpuscular Volume 100.1 fl (80-94); Platelet Count 211 K/mm3 (142-424); Red Blood Count 3.74 M/mm3 (4.60-6.20); Red Cell Distribution Width 14.2 % (11.5-17.5); White Blood Count 5.5 K/mm3 (4.8-10.8)
[2023-12-05 12:09] LABS: Appearance,Urine CLEAR (Clear); Bilirubin,Urine Negative (Negative); Blood, Urine Negative (Negative); Color,Urine YELLOW (Yellow); Glucose,Urine (UA) Negative (Negative); Ketones,Urine TRACE (Negative); Leukocyte Esterase,Urine Negative (Negative); Nitrate,Urine Negative (Negative); PH,Urine 5.5 (5.0-8.5); Protein,Urine Negative (Negative); Urobilinogen,Urine 0.2 EU/dl (0.2)
[2023-12-05 12:37] LABS: Bacteria,Urine Trace /lpf; Squamous Epithelial Cell,Urine Occasional #/hpf (0-5)
[2023-12-05 12:39] LABS: Albumin Level 4.3 g/dl (3.5-5.0); Anion Gap 8.6 mEq/L (5-15); Blood Urea Nitrogen 31 mg/dl (9-20); Calcium 9.3 mg/dl (8.4-10.2); Carbon Dioxide 29 mmol/L (22.0-30.0); Chloride 104 mmol/L (98-107); Estimated Glomerular Filt Rate 50 ml/min (>60); GFR (African American) 60 ML/MIN (>60); Glucose 101 mg/dl (74-100); Phosphorous 3.9 mg/dl (2.5-4.5); Potassium 4.6 mmoL/L (3.5-5.1); Sodium 137 mmol/L (136-145)
[2023-12-05 12:51] LABS: Intact Parathyroid Hormone 245.2 pg/mL (7.5-53.5)
[2023-12-05 12:55] LABS: 25-OH Vitamin D, Total 30.6 ng/mL (30-100)
[2023-12-05 12:59] LABS: Creatinine,Urine Random 76 mg/dL (Not Estab.)
== END 2023-12-05 23:59 ==
LOC: LAB 11:26
PROVIDERS: PCP Internal Medicine; Visit Provider Internal Medicine Nephrology
DX: N18.30 Chronic kidney disease, stage 3 unspecified (principal); E55.9 Vitamin D deficiency, unspecified; Z68.26 Body mass index [BMI] 26.0-26.9, adult
CPT/HCPCS: 36415; 80069; 81001; 82306; 82570; 83970; 84156; 85014; 85018; 85048; 85049

== ENCOUNTER 2023-12-09 15:17 | Outpatient (POV) | payer MEDICARE, OTHER, SELFPAY | END 2023-12-09 23:59 | disposition home or self-care (01) | LOC: SC 15:18 | PROVIDERS: Visit Provider Internal Medicine Nephrology | DX: Z00.00 Encounter for general adult medical examination without abnormal findings (principal) ==

== ENCOUNTER 2024-01-13 09:56 | Outpatient (CLI) | payer MEDICARE, OTHER, SELFPAY ==
[2024-01-13 11:20] LABS: Basophils % 0.5 % (0.1-2.0); Eosinophils # 0.1 K/mm3 (0.0-0.4); Hematocrit 38.1 % (42.0-52.0); Hemoglobin 12.5 g/dL (14.1-18.0); Lymphocytes % 17.5 % (10-50); Mean Corpuscular HGB Conc 32.9 g/dL (31.8-35.4); Mean Corpuscular Hemoglobin 33.2 pg (27.0-31.2); Mean Corpuscular Volume 101.1 fl (80-94); Mean Platelet Volume 8.6 fl (7.4-10.4); Monocytes # 0.3 K/mm3 (0.1-1.0); Neutrophils # 4.5 K/mm3 (1.8-7.8); Platelet Count 158 K/mm3 (142-424); Red Blood Count 3.77 M/mm3 (4.60-6.20); Red Cell Distribution Width 14.8 % (11.5-17.5); White Blood Count 5.9 K/mm3 (4.8-10.8)
[2024-01-13 11:35] LABS: Alanine Aminotransferase 6 U/L (12-78); Albumin Level 4.2 g/dl (3.5-5.0); Albumin/Globulin Ratio 2.1 (1.1-1.8); Alkaline Phosphatase 127 U/L (38-126); Anion Gap 6.6 mEq/L (5-15); Aspartate Amino Transferase 19 U/L (17-59); Bilirubin,Total 0.8 mg/dl (0.2-1.3); Blood Urea Nitrogen 45 mg/dl (9-20); Calcium 9.5 mg/dl (8.4-10.2); Carbon Dioxide 31 mmol/L (22.0-30.0); Chloride 107 mmol/L (98-107); Estimated Glomerular Filt Rate 42 ml/min (>60); GFR (African American) 51 ML/MIN (>60); Glucose 61 mg/dl (74-100); Potassium 4.6 mmoL/L (3.5-5.1); Sodium 140 mmol/L (136-145); Total Protein,Serum 6.2 g/dl (6.3-8.2)
[2024-01-13 12:20] LABS: Hemoglobin A1C 5.2 % (4.0-6.0)
== END 2024-01-13 23:59 | disposition home or self-care (01) ==
LOC: LAB 09:57
PROVIDERS: PCP Internal Medicine; Visit Provider Internal Medicine
DX: R53.83 Other fatigue (principal); R73.09 Other abnormal glucose; Z79.899 Other long term (current) drug therapy
CPT/HCPCS: 36415; 80053; 83036; 85025

== ENCOUNTER 2024-01-29 11:25 | Outpatient (CLI) | payer MEDICARE, OTHER, SELFPAY ==
[2024-01-29 19:11] LABS: Basophils % 0.4 % (0.1-2.0); Eosinophils # 0.1 K/mm3 (0.0-0.4); Eosinophils % 0.9 % (0.1-12.0); Hematocrit 37.7 % (42.0-52.0); Hemoglobin 12.5 g/dL (14.1-18.0); Lymphocytes # 0.8 K/mm3 (0.7-4.5); Lymphocytes % 10.6 % (10-50); Mean Corpuscular HGB Conc 33.1 g/dL (31.8-35.4); Mean Corpuscular Hemoglobin 32.9 pg (27.0-31.2); Mean Corpuscular Volume 99.5 fl (80-94); Mean Platelet Volume 9.2 fl (7.4-10.4); Monocytes # 0.3 K/mm3 (0.1-1.0); Monocytes % 4.1 % (1.7-9.3); Neutrophils # 6.5 K/mm3 (1.8-7.8); Neutrophils % 83.9 % (37.0-80.0); Platelet Count 142 K/mm3 (142-424); Red Blood Count 3.79 M/mm3 (4.60-6.20); Red Cell Distribution Width 14.8 % (11.5-17.5); White Blood Count 7.7 K/mm3 (4.8-10.8)
[2024-01-29 19:42] LABS: Alanine Aminotransferase < 4 U/L (12-78); Albumin Level 4.4 g/dl (3.5-5.0); Albumin/Globulin Ratio 2.1 (1.1-1.8); Alkaline Phosphatase 119 U/L (38-126); Anion Gap 12.5 mEq/L (5-15); Aspartate Amino Transferase 20 U/L (17-59); Bilirubin,Total 0.9 mg/dl (0.2-1.3); Blood Urea Nitrogen 72 mg/dl (9-20); Calcium 8.9 mg/dl (8.4-10.2); Carbon Dioxide 28 mmol/L (22.0-30.0); Chloride 101 mmol/L (98-107); Estimated Glomerular Filt Rate 33 ml/min (>60); GFR (African American) 40 ML/MIN (>60); Globulin 2.1 g/dL (1.3-3.2); Glucose 116 mg/dl (74-100); Potassium 4.5 mmoL/L (3.5-5.1); Sodium 137 mmol/L (136-145); Total Protein,Serum 6.5 g/dl (6.3-8.2)
== END 2024-01-29 23:59 | disposition home or self-care (01) ==
LOC: LAB.DROPOF 01-30 11:26
PROVIDERS: PCP Internal Medicine; Visit Provider Internal Medicine
DX: I25.10 Atherosclerotic heart disease of native coronary artery without angina pectoris (principal); Z86.73 Personal history of transient ischemic attack (TIA), and cerebral infarction without residual deficits; Z79.899 Other long term (current) drug therapy
CPT/HCPCS: 80053; 85025

== ENCOUNTER 2024-03-01 08:31 | Emergency (ER) | payer MEDICARE, OTHER, SELFPAY ==
[2024-03-01] VITALS (13 sets, daily range): BP systolic 130–166; BP diastolic 61–87; PULSE 51–64; RESP 18–20; TEMP 36.7; O2SAT 93–99; BMI 26.9
--- NOTE | 2024-03-01 08:48 | CT_ITS ---
PROCEDURE INFORMATION: Exam: CTA Abdomen and Pelvis With Contrast Exam date and time: 03/01/2024 9:41 AM Age: 73 years old Clinical indication: Abdominal pain; Localized; Left lower quadrant (llq); Prior surgery; Surgery date: 6+ months; Surgery type: Nephrectomy; Additional info: Blunt trauma llq . History of renal carcinoma TECHNIQUE: Imaging protocol: Computed tomographic angiography of the abdomen and pelvis with contrast. Exam focused on the arteries. 3D rendering (Not supervised by radiologist): MIP and/or 3D reconstructed images were created by the technologist. Radiation optimization: All CT scans at this facility use at least one of these dose optimization techniques: automated exposure control; mA and/or kV adjustment per patient size (includes targeted exams where dose is matched to clinical indication); or iterative reconstruction. Contrast material: ISOVUE 370; Contrast volume: 100 ml; Contrast route: INTRAVENOUS (IV); COMPARISON: CT ABDOMEN PELVIS W CON 11/14/2023 11:21 AM FINDINGS: Aorta: No aneurysm of the aorta. No dissection of the aorta. 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 Renal arteries: .Stenosis at the origin of the right renal artery. Right iliac arteries: No occlusion or significant stenosis. Left iliac arteries: No occlusion or significant stenosis. Liver: No mass. Gallbladder and biliary ducts: Pneumobilia. Cholecystectomy. The common duct is prominent. It measures 18-19 millimeters. This may be due to post cholecystectomy state and elderly status. However, if biliary obstruction is suspected clinically, recommend further evaluation. Pancreas: Unremarkable. No mass. No ductal dilation. Spleen: Splenomegaly 16.7 cm. Adrenal glands: Unremarkable. No mass. Kidneys and ureters: Left nephrectomy. 4.6 cm simple cyst right kidney. Additional smaller simple cysts in the right kidney. 2.1 cm mass upper pole right kidney measures 42 Hounsfield units.. 2.5 cm mass lower pole right kidney 34 Hounsfield units. Stomach and bowel: The rectum is distended 5.8 cm with fecal material. Appendix: No evidence of appendicitis. Intraperitoneal space: Unremarkable. No free air. No significant fluid collection. Lymph nodes: Unremarkable. No enlarged lymph nodes. Urinary bladder: Unremarkable. No mass. Reproductive: The prostate is enlarged, greater than 5 cm. Recommend urology consult. Bones/joints: No acute fracture. Soft tissues: Unremarkable. IMPRESSION: 1. No aneurysm of the aorta. 2. No dissection of the aorta. 3. 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 . 4. .Stenosis at the origin of the right renal artery. 5. Left nephrectomy. For renal cell 6. Splenomegaly 16.7 cm. 7. 2.1 cm mass upper pole right kidney measures 42 Hounsfield units.. 2.5 cm mass lower pole right kidney 34 Hounsfield units. Recommend MRI and urology consult 8. The common duct is prominent. It measures 18-19 millimeters. This may be due to post cholecystectomy state and elderly status. However, if biliary obstruction is suspected clinically, recommend further evaluation. 9. The prostate is enlarged, greater than 5 cm. Recommend urology consult. 10. The rectum is distended 5.8 cm with fecal material.
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
[2024-03-01] MEDS: ACETAMINOPHEN 1,000MG/100ML VIAL 1000 MG IV (09:04)
[2024-03-01] MEDS: LACTATED RINGERS 1000ML 1,000 ML 999 ML IV (09:05)
[2024-03-01] MEDS: MORPHINE 4MG/ML SYRINGE 4 MG IV (09:05)
[2024-03-01 09:06] LABS: Basophils % 0.7 % (0.1-2.0); Eosinophils # 0.1 K/mm3 (0.0-0.4); Eosinophils % 1.4 % (0.1-12.0); Hematocrit 38.3 % (42.0-52.0); Hemoglobin 12.6 g/dL (14.1-18.0); Lymphocytes # 1.1 K/mm3 (0.7-4.5); Lymphocytes % 17.5 % (10-50); Mean Corpuscular HGB Conc 32.9 g/dL (31.8-35.4); Mean Corpuscular Hemoglobin 33.6 pg (27.0-31.2); Monocytes # 0.3 K/mm3 (0.1-1.0); Monocytes % 5.2 % (1.7-9.3); Neutrophils # 4.6 K/mm3 (1.8-7.8); Neutrophils % 75.1 % (37.0-80.0); Platelet Count 152 K/mm3 (142-424); Red Blood Count 3.76 M/mm3 (4.60-6.20); Red Cell Distribution Width 14.6 % (11.5-17.5); White Blood Count 6.1 K/mm3 (4.8-10.8)
[2024-03-01 09:08] LABS: Microscopic, Urine URINE MICROSCOPIC (MICROSCOPIC)
[2024-03-01 09:16] LABS: INR 1.02 (0.9-1.1)
[2024-03-01 09:16] LABS: Appearance,Urine CLEAR (Clear); Bilirubin,Urine Negative (Negative); Blood, Urine Negative (Negative); Color,Urine YELLOW (Yellow); Glucose,Urine (UA) Negative (Negative); Ketones,Urine Negative (Negative); Leukocyte Esterase,Urine Negative (Negative); Nitrate,Urine Negative (Negative); Protein,Urine Negative (Negative); Specific Gravity, Urine 1.015 (1.005-1.030); Urobilinogen,Urine 0.2 EU/dl (0.2)
[2024-03-01 09:17] LABS: Chloride 101 mmol/L (98-107); Potassium 4.1 mmoL/L (3.5-5.1); Sodium 135 mmol/L (136-145)
[2024-03-01 09:19] LABS: Blood Urea Nitrogen 42 mg/dl (9-20); Creatinine Clearance Estimated 42 mL/min (50-200); Estimated Glomerular Filt Rate 37 ml/min (>60); GFR (African American) 45 ML/MIN (>60)
[2024-03-01 09:20] LABS: Alanine Aminotransferase 6 U/L (12-78); Albumin Level 4.2 g/dl (3.5-5.0); Albumin/Globulin Ratio 1.8 (1.1-1.8); Alkaline Phosphatase 109 U/L (38-126); Anion Gap 8.1 mEq/L (5-15); Aspartate Amino Transferase 19 U/L (17-59); Bilirubin,Total 1.2 mg/dl (0.2-1.3); Calcium 9.1 mg/dl (8.4-10.2); Carbon Dioxide 30 mmol/L (22.0-30.0); Globulin 2.4 g/dL (1.3-3.2); Glucose 103 mg/dl (74-100); Total Protein,Serum 6.6 g/dl (6.3-8.2)
[2024-03-01 09:38] LABS: Squamous Epithelial Cell,Urine Occasional #/hpf (0-5)
--- NOTE | 2024-03-01 09:38 | PC.NURSE ---
pt to ct via wheelchair
--- NOTE | 2024-03-01 09:39 | PC.NURSE ---
pt gone to ct
[2024-03-01] MEDS: ONDANSETRON 4MG/2ML VIAL 4 MG IV (09:58)
[2024-03-01] MEDS: 0.9 % SODIUM CHLORIDE 50 ML VIAL IV (10:05)
[2024-03-01] MEDS: IOPAMIDOL-370 (76%);100ML BOTTLE 100 ML IV (10:05)
[2024-03-01] MEDS: SODIUM CHLORIDE 0.9% 10ML SYR (RAD ONLY) 10 ML IV (10:06)
== END 2024-03-01 11:23 | disposition home or self-care (01) ==
PROVIDERS: Emergency Provider Emergency Medicine; PCP Internal Medicine
DX: R10.32 Left lower quadrant pain (principal); N28.89 Other specified disorders of kidney and ureter; N40.0 Benign prostatic hyperplasia without lower urinary tract symptoms; Z90.5 Acquired absence of kidney; Z85.520 Personal history of malignant carcinoid tumor of kidney; N18.32 Chronic kidney disease, stage 3b; E11.22 Type 2 diabetes mellitus with diabetic chronic kidney disease; K21.9 Gastro-esophageal reflux disease without esophagitis
CPT/HCPCS: 74174; 80053; 81001; 85025; 85610; 96361; 96374; 96375; 99285; J0131; J2270; J2405; J7120; Q9967

== ENCOUNTER 2024-04-22 11:00 | Outpatient (RCR) | payer MEDICARE, OTHER, SELFPAY ==
--- NOTE | 2024-03-23 15:03 | HMH.PTOPWND ---
Rehab Outpt Wound Evaluation Rehab OP Wound Evaluation Start: 03/23/24 14:07 Freq: Status: Active Protocol: Document 03/23/24 14:50 KATHARINA (Rec: 03/23/24 15:03 PHORCONRAD [id number]) E-signed By Tim Mayorga, PT Subjective/History History History This is the initial PT eval for Hung Maravilla, 73 yowm who presents with c/o B LE increased edema x ~ 1 yr and gradually worsening. He reports no c/o increased pain or tenderness to palpation on either leg. He does reports increased instances of numbness and tingling when his swelling is increased. He has significant PMH of Parkinson' s disease, DM, HTN, Kidney cancer with one nephrectomy, COPD. He does reports decreased edema since he was prescribed a new diuretic by his PCP. Subjective Subjective Currently no c/o pain, 0/10. 3 + pitting edema noted to B LE from bottom of calf distally. L foot with severe blanchable erythema noted. New diagnosis of cancer in past 12 No months? Lymphedema Eval Classification of Lymphedema Secondary Lymphedema Yes Stemmer's sign Stemmer's Sign yes Stage of Lymphedema Lymphedema stages Stage I (Pitting edema, reduces w/ elevation, no fibrosis) Skin Changes Dry Skin Yes Taut, Shiny Skin Yes Skin Folds Yes Redness Yes Discoloration of Skin Yes Other Changes Yes Pain Scale Pain Scale (0-10) 0 Affected Extremities Areas Affected by Lymphedema/Edema Right Lower Extremity,Left Lower Extremity Lower Extremity Measurements Right MTP Measurement (cm) 24.3 Heel Measurement (cm) 35.1 10 cm Proximal to Lateral Malleoli 29.1 Measurement (cm) 20 cm Proximal to Lateral Malleoli 32.8 Measurement (cm) 30 cm Proximal to Lateral Malleoli 37.6 Measurement (cm) 40 cm Proximal to Lateral Malleoli 0 Measurement (cm) 50 cm Proximal to Lateral Malleoli 0 Measurement (cm) 60 cm Proximal to Lateral Malleoli 0 Measurement (cm) Lower Extremity Measurement Total (cm) 158.9 Left MTP Measurement (cm) 25.1 Heel Measurement (cm) 36.6 10 cm Proximal to Lateral Malleoli 30.4 Measurement (cm) 20 cm Proximal to Lateral Malleoli 35.2 Measurement (cm) 30 cm Proximal to Lateral Malleoli 36.8 Measurement (cm) 40 cm Proximal to Lateral Malleoli 0 Measurement (cm) 50 cm Proximal to Lateral Malleoli 0 Measurement (cm) 60 cm Proximal to Lateral Malleoli 0 Measurement (cm) Lower Extremity Measurement Total (cm) 164.1 Manual Lymphatic Drainage Treatment Area MLD Treatment Area Right Lower Extremity,Left Lower Extremity Wound Problems/Impairments Impairments Problems/Impairmments Impaired Walking,Impaired Recreational Activities, Increased Edema,Lymphedema Present,Impaired Self Care/ Self Management Prognosis Rehab Potential Good Comment Skilled therapy is necessary to aid reduction in B LE edema and return pt to PLOF. Clinical Impression Consistent with Diagnosis Yes Short Term Goals Number of Weeks 2 Decrease Edema Yes Decrease Lymphedema 2+ pitting edema B Lower legs Patient to Understand Lymphedema Yes Treatment and Exercises Decrease Girth Measurments by (cm) Yes: B LE total by 5 cm ea Canal Driver Goals Number of Weeks 4 Decrease Edema Yes: 1+ pitting edema to B Lower legs Patient to be Ind w/ HEP Yes Patient to Adhere Lymphedema Precautions Yes Decrease Girth Measurments by (cm) Yes: B LE total by 10 cm ea Outpatient Therapy Plan of Care Treatment Plan May Include Therapeutic Exercise Including Home Yes Exercise Program Manual Therapy Techniques Yes Neuromuscular Re-education Yes Therapeutic Activities to Return to Yes Previous Functional/Work Level Gait Training Yes ADL/Self Care Education Yes Orthotics/Bracing/Splinting Yes Manual Lymphatic Drainage Yes Eval/Re-Eval Yes Frequency Times per week 2 Duration Number of Weeks 4 Addendums This patient is a candidate for social No or vocational rehab? Patient/Guardian verbally acknowledges Yes understanding of treatment program and consents to further treatment? Patient/Guardian verbally acknowledges Yes understanding of diagnosis, prognosis and goals for treatment? Eval Complexity PT Charges 35542 - High Complexity PHYSICIAN CERTIFICATION: I certify the specified therapy services for Hung Maravilla are required, authorized, and reviewed every 30 days.
== END 2024-04-22 11:05 | disposition home or self-care (01) ==
LOC: PT 11:00
PROVIDERS: Visit Provider Internal Medicine
DX: R60.0 Localized edema (principal)
CPT/HCPCS: 97140; 97163

== ENCOUNTER 2024-06-17 13:52 | Observation (INO) | payer MEDICARE, OTHER, SELFPAY ==
[2024-06-17] VITALS (10 sets, daily range): BP systolic 103–141; BP diastolic 61–79; PULSE 60–73; RESP 16–20; TEMP 36.4–36.7; O2SAT 96–99; BMI 26.2; BMI 24.9; BMI 24.7
--- NOTE | 2024-06-17 14:06 | ED_ITS ---
Discharge Plan Disposition Patient Disposition: Admitted Condition: Fair Clinical Impressions Clinical Impression: Syncope and collapse, Therapeutic misadventure Acute on chronic renal failure Qualifiers: Acute renal failure type: unspecified Chronic kidney disease stage 3 subtype: rachel herbert 3b (GFR 30-44) Discharge ED Provider: Wilmar Lopez General Adult HPI <GUMARO Montes - Last Filed: 06/17/24 16:17> General Chief complaint: Fall Stated complaint: AO-06/13- hit head Time Seen by Provider: 06/17/24 14:04 History of Present Illness HPI narrative: Patient presents for evaluation of syncope and collapse. Patient states that Saturday he was sitting in a chair watching television got up to go to the kitchen and had a syncopal event suddenly. There was no harbinger. He was unconscious for just a few seconds according to his who rushed to his side. He reports that he has chronic neck pain but his neck has been hurting more since the fall. His only known injury was a skin tear to his left elbow. He was at his neurologist visit today and they sent him to the emergency department for further evaluation and care. Currently patient reports the forementioned neck pain no headache chest pain shortness of breath fever chills hemoptysis hematochezia melena nausea vomiting diarrhea. He reports that he has had periodic episodes of seeing red spots and feeling lightheaded when standing. He is off all antihypertensives but he has been on some previously but is currently on 2 water pills according to his due to dependent edema. He does have chronic renal insufficiency has had an ischemic stroke as a history of insulin- dependent type 2 diabetes mellitus in the past neuropathic pain history of renal cell carcinoma with resection of the left kidney hyperlipidemia diastolic heart failure. Related Data Home Medications ?Medication ?Instructions ?Recorded ?Confirmed docusate sodium 50 mg capsule 100 mg PO DAILY 12/18/23 06/17/24 furosemide 40 mg tablet 40 mg PO DAILY 06/17/24 06/17/24 carbidopa 25 mg-levodopa 100 mg 3 tab PO TID 06/18/24 06/18/24 tablet carbidopa ER 50 mg-levodopa 200 mg 1 tab PO BID 06/18/24 06/18/24 tablet,extended release folic acid 1 mg tablet 1 mg PO DAILY 06/18/24 06/18/24 pantoprazole 40 mg tablet,delayed 40 mg PO BID 06/18/24 06/18/24 release Previous Rx's ?Medication ?Instructions ?Recorded simvastatin 20 mg tablet 20 mg PO HS 90 days #90 tabs 12/25/23 gabapentin 600 mg tablet 600 mg PO TID 30 days #90 tabs 03/11/24 allopurinol 100 mg tablet See Rx Instructions .Route 04/30/24 .COMPLEX #90 tabs hydrocodone 10 mg-acetaminophen 1 tab PO Q4-6H PRN pain #120 tabs 06/08/24 325 mg tablet entacapone 200 mg tablet 200 mg PO QID Parkinsons #120 tabs 06/17/24 Allergies Allergy/AdvReac Type Severity Reaction Status Date / Time mupirocin Allergy Verified 06/17/24 13:12 PFS <GUMARO Montes - Last Filed: 06/17/24 16:17> [facility] Disclaimer: The information contained in this section may have been updated after the patient was seen, as this information can be updated by other users. Medical History DM type 2 (diabetes mellitus, type 2) COPD (chronic obstructive pulmonary disease) GERD (gastroesophageal reflux disease) Single kidney Heart failure TIA (transient ischemic attack) Daytime somnolence Parkinson disease Surgical History History of cholecystectomy Hx of appendectomy H/O left nephrectomy Family History No significant family history Social History Smoking Status: Former smoker tobacco type: cigarettes second hand exposure: Yes alcohol intake: current alcohol intake frequency: a few times a month substance use type: denies use current occupational status: retired Travel in the last 8 weeks: None household members: spouse housing: house marital status: current occupational exposures/hazards: No caffeine: No Other Medical History Have you received the Flu Vaccine for this season: No Have you received the Pneumonia Vaccine: No <GUMARO Montes - Last Filed: 06/17/24 16:17> ROS Obtained: Yes Systems reviewed as appropriate & no additional complaints except as documented Physical Exam <GUMARO Montes - Last Filed: 06/17/24 16:17> General General appearance: alert and in no apparent distress Respiratory Respiratory exam: Present normal lung sounds bilaterally Cardiovascular Cardiovascular exam: Present regular rate Neurological Exam Neurological exam: Present alert and oriented X3 Medical Decision Making <GUMARO Montes - Last Filed: 06/17/24 16:17> Medical Records Medical records reviewed: Yes I reviewed the patient's medical records. Screening: Per USPSTF and CDC recommendations, given the prevalence of disease in our region, it is our hospital?s policy to screen for HIV and viral Hepatitis for all patients aged 18 and over and those with ongoing risk factors. Antoine Inquiry Pt receiving controlled substance: No Vital Signs: 06/17/24 13:53 06/17/24 14:00 06/17/24 14:15 Temperature 97.6 F Temperature Source Oral Pulse Rate 73 71 Pulse Rate [Right Radial] 65 Respiratory Rate 20 Blood Pressure 103/63 L 115/64 Blood Pressure [Right Arm] 115/67 Blood Pressure Mean Blood Pressure Mean [Right Arm] 83 02 Sat by Pulse Oximetry 99 98 98 Oxygen Delivery Method Room Air 06/17/24 14:30 06/17/24 15:00 06/17/24 15:00 Temperature Temperature Source Pulse Rate 72 68 Pulse Rate [Right Radial] Respiratory Rate Blood Pressure 103/62 L 116/61 116/61 Blood Pressure [Right Arm] Blood Pressure Mean 82 Blood Pressure Mean [Right Arm] 02 Sat by Pulse Oximetry 97 96 Oxygen Delivery Method 06/17/24 16:37 Temperature 98.0 F Temperature Source Pulse Rate 67 Pulse Rate [Right Radial] Respiratory Rate 20 Blood Pressure 130/70 Blood Pressure [Right Arm] Blood Pressure Mean Blood Pressure Mean [Right Arm] 02 Sat by Pulse Oximetry Oxygen Delivery Method Room Air Lab Data Lab results reviewed: Yes I reviewed the patient's lab results. Lab Results 06/17/24 14:21: Urine Color Yellow, Urine Appearance Clear, Urine pH 5.5, Ur Specific [place] 1.020, Urine Protein Negative, Urine Glucose (UA) Negative, Urine Ketones Negative, Urine Blood Negative, Urine Nitrate Negative, Urine Bilirubin Negative, Urine Urobilinogen 0.2, Ur Leukocyte Esterase Negative, Urine RBC Occasional, Urine WBC Occasional, Ur Squamous Epith Cells Occasional, Urine Bacteria 1+ 06/17/24 14:45: WBC 8.0, RBC 4.17 L, Hgb 13.9 L, Hct 40.4 L, MCV 96.7 H, MCH 33.3 H, MCHC 34.5, RDW 14.5, Plt Count 116 L, MPV 10.5 H, Neut % (Auto) 84.0 H, Lymph % (Auto) 9.3 L, Antelope % (Auto) 5.9, Eos % (Auto) 0.5, Baso % (Auto) 0.3, Neut # (Auto) 6.7, Lymph # (Auto) 0.7, Antelope # (Auto) 0.5, Eos # (Auto) 0.0, Baso # (Auto) 0.0, Sodium 132 L, Potassium 4.0, Chloride 96 L, Carbon Dioxide 33 H, Anion Gap 7.0, BUN 80 H, Creatinine 2.50 H, Estimated Creat Clear 30, Estimated GFR 25 L, Est GFR ( Amer) 31 L, Glucose 129 H, Calcium 9.7, Magnesium 1.7, Total Bilirubin 1.1, AST 17, ALT 6 L, Alkaline Phosphatase 100, Troponin I < 0.01, Total Protein 7.3, Albumin 4.9, Globulin 2.4, Albumin/Globulin Ratio 2.0 H 06/18/24 06:55 06/18/24 06:55 Orders (Tests/Meds): ED MEDICATIONS Discontinued Medications Generic Name Dose Route Start Last Admin Trade Name Shira PRN Reason Stop Dose Admin Acetaminophen 1,000 mg 06/17/24 14:20 06/17/24 14:28 Acetaminophen 500mg Tab PO 06/17/24 14:21 1,000 mg ONCE ONE Administration Carbidopa/Levodopa 3 each 06/17/24 21:00 06/18/24 12:32 Carbidopa/Levodopa 25/100mg Tablet PO 07/17/24 20:59 3 each TID ORIANA Administration Gabapentin 600 mg 06/17/24 23:30 06/18/24 12:32 Gabapentin 600mg Tablet PO 07/17/24 23:29 600 mg TID ORIANA Administration Sodium Chloride 1,000 mls @ 999 mls/hr 06/17/24 15:20 06/17/24 15:40 Sod Chlor 0.9% 1000ml Bag IV 06/17/24 16:20 999 mls/hr .Q1H1M ONE Administration Lactated Ringer's 500 mls @ 250 mls/hr 06/17/24 18:35 06/17/24 19:04 Lactated Ringer's 1000 Ml Bag IV 06/17/24 20:34 250 mls/hr .Q2H ONE Administration Lactated Ringer's 500 mls @ 250 mls/hr 06/18/24 01:12 06/18/24 01:16 Lactated Ringer's 500ml IV 06/18/24 03:11 250 mls/hr .Q2H ONE Administration Magnesium Sulfate 2 gm in 50 mls @ 50 mls/hr 06/18/24 08:30 06/18/24 08:44 Magnesium Sulfate 2gm/50ml Premix IV 06/18/24 09:29 50 mls/hr ONCE ONE Administration Pat Own Med 200 mg 06/17/24 21:00 06/18/24 12:33 Entacapone 200 Mg PO 07/17/24 20:59 200 mg QID ORIANA Administration Pantoprazole Sodium 40 mg 06/17/24 21:00 06/17/24 20:45 Pantoprazole 40mg Tablet PO 07/17/24 20:59 40 mg HS ORIANA Administration Pantoprazole Sodium 40 mg 06/18/24 09:30 06/18/24 10:55 Pat Own Med Pantoprazole 40mg PO 07/18/24 09:29 40 mg BID ORIANA Administration Sodium Chloride 3 ml 06/17/24 19:41 06/17/24 22:02 Sodium Chloride 3% 15ml Neb IH 07/17/24 19:40 3 ml ONCE PRN Administration INDUCE SPUTUM COLLECTION ORDERS Category Date Time Status CT cervical spine wo con Stat Cat Scan 06/17/24 14:[address] head/brain wo con Stat Cat Scan 06/17/24 14:20 Completed Chest XR 2 view (NOT portable) [XR chest 2V] Stat Exams 06/17/24 14:20 Completed CBC w/Auto Diff [Complete Blood Count Auto Diff] Stat Lab 06/17/24 14:45 Completed CMP [Comprehensive Metabolic Panel] Stat Lab 06/17/24 14:45 Completed Complete Blood Count Auto Diff AMLAB Lab 06/18/24 06:55 Completed Comprehensive Metabolic Panel AMLAB Lab 06/18/24 06:55 Completed Magnesium AMLAB Lab 06/18/24 06:55 Completed Magnesium Stat Lab 06/17/24 14:45 Completed Trop I [Troponin I] Stat Lab 06/17/24 14:45 Completed Troponin I Q3H Lab 06/17/24 17:38 Completed Troponin I Q3H Lab 06/17/24 20:46 Completed UA [Urinalysis and Microscopic] Stat Lab 06/17/24 15:41 Completed Medical Decision Narrative: I, Wilmar Lopez MD, was present at the time of patient's arrival and agreed with the workup and plan mentioned below. Patient's workup is pending at this time and final disposition is to be determined by the oncoming provider, Dr. Tsang. In summary patient is a 73-year-old male who presents to the emergency department for evaluation of syncope and collapse. Patient is dynamically stable however of his blood pressure is on the low side of 115/67 with a heart rate of 65 at the time of my exam upon arrival, but afebrile. Physical exam is remarkable for a skin tear to the left elbow but no bony deformity and he is neurovascular intact distally in the left upper extremity, Myles Coma Score is currently 15, he has full range of motion of the neck with no midline C-spine tenderness on palpation normal breath sounds normal heart sounds peers to be sinus rhythm on the monitor. Differential diagnosis includes vasovagal syncope versus therapeutic misadventure with 2 water pills versus orthostatic hypotension versus cerebrovascular event etc. Initial workup will be conducted with hematologic labs CT scan of the head neck and chest x-ray and if his renal function supports that CTA of the head and neck. Initial interventions include acetaminophen. Initial workup reviewed by me and is significant for slight hyponatremia, acute on chronic renal failure with elevated BUN and creatinine and decreased GFR with the remainder of his hematologic labs being nonactionable and my informal interpretation of his imaging shows no acute fracture or bleed or other process prior to radiology read. Given that I had an interactive discussion with hospital medicine regarding patient management and patient will be admitted for further evaluation and care. <Wilmar Lopez MD - Last Filed: 06/17/24 16:03> Vital Signs: 06/17/24 13:53 06/17/24 14:00 06/17/24 14:15 Temperature 97.6 F Temperature Source Oral Pulse Rate 73 71 Pulse Rate [Right Radial] 65 Respiratory Rate 20 Blood Pressure 103/63 L 115/64 Blood Pressure [Right Arm] 115/67 Blood Pressure Mean Blood Pressure Mean [Right Arm] 83 02 Sat by Pulse Oximetry 99 98 98 Oxygen Delivery Method Room Air 06/17/24 14:30 06/17/24 15:00 06/17/24 15:00 Temperature Temperature Source Pulse Rate 72 68 Pulse Rate [Right Radial] Respiratory Rate Blood Pressure 103/62 L 116/61 116/61 Blood Pressure [Right Arm] Blood Pressure Mean 82 Blood Pressure Mean [Right Arm] 02 Sat by Pulse Oximetry 97 96 Oxygen Delivery Method 06/17/24 16:37 Temperature 98.0 F Temperature Source Pulse Rate 67 Pulse Rate [Right Radial] Respiratory Rate 20 Blood Pressure 130/70 Blood Pressure [Right Arm] Blood Pressure Mean Blood Pressure Mean [Right Arm] 02 Sat by Pulse Oximetry Oxygen Delivery Method Room Air Lab Data Lab Results 06/17/24 14:21: Urine Color Yellow, Urine Appearance Clear, Urine pH 5.5, Ur Specific [place] 1.020, Urine Protein Negative, Urine Glucose (UA) Negative, Urine Ketones Negative, Urine Blood Negative, Urine Nitrate Negative, Urine Bilirubin Negative, Urine Urobilinogen 0.2, Ur Leukocyte Esterase Negative, Urine RBC Occasional, Urine WBC Occasional, Ur Squamous Epith Cells Occasional, Urine Bacteria 1+ 06/17/24 14:45: WBC 8.0, RBC 4.17 L, Hgb 13.9 L, Hct 40.4 L, MCV 96.7 H, MCH 33.3 H, MCHC 34.5, RDW 14.5, Plt Count 116 L, MPV 10.5 H, Neut % (Auto) 84.0 H, Lymph % (Auto) 9.3 L, Antelope % (Auto) 5.9, Eos % (Auto) 0.5, Baso % (Auto) 0.3, Neut # (Auto) 6.7, Lymph # (Auto) 0.7, Antelope # (Auto) 0.5, Eos # (Auto) 0.0, Baso # (Auto) 0.0, Sodium 132 L, Potassium 4.0, Chloride 96 L, Carbon Dioxide 33 H, Anion Gap 7.0, BUN 80 H, Creatinine 2.50 H, Estimated Creat Clear 30, Estimated GFR 25 L, Est GFR ( Amer) 31 L, Glucose 129 H, Calcium 9.7, Magnesium 1.7, Total Bilirubin 1.1, AST 17, ALT 6 L, Alkaline Phosphatase 100, Troponin I < 0.01, Total Protein 7.3, Albumin 4.9, Globulin 2.4, Albumin/Globulin Ratio 2.0 H Orders (Tests/Meds): ED MEDICATIONS Discontinued Medications Generic Name Dose Route Start Last Admin Trade Name Shira PRN Reason Stop Dose Admin Acetaminophen 1,000 mg 06/17/24 14:20 06/17/24 14:28 Acetaminophen 500mg Tab PO 06/17/24 14:21 1,000 mg ONCE ONE Administration Carbidopa/Levodopa 3 each 06/17/24 21:00 06/18/24 12:32 Carbidopa/Levodopa 25/100mg Tablet PO 07/17/24 20:59 3 each TID ORIANA Administration Gabapentin 600 mg 06/17/24 23:30 06/18/24 12:32 Gabapentin 600mg Tablet PO 07/17/24 23:29 600 mg TID ORIANA Administration Sodium Chloride 1,000 mls @ 999 mls/hr 06/17/24 15:20 06/17/24 15:40 Sod Chlor 0.9% 1000ml Bag IV 06/17/24 16:20 999 mls/hr .Q1H1M ONE Administration Lactated Ringer's 500 mls @ 250 mls/hr 06/17/24 18:35 06/17/24 19:04 Lactated Ringer's 1000 Ml Bag IV 06/17/24 20:34 250 mls/hr .Q2H ONE Administration Lactated Ringer's 500 mls @ 250 mls/hr 06/18/24 01:12 06/18/24 01:16 Lactated Ringer's 500ml IV 06/18/24 03:11 250 mls/hr .Q2H ONE Administration Magnesium Sulfate 2 gm in 50 mls @ 50 mls/hr 06/18/24 08:30 06/18/24 08:44 Magnesium Sulfate 2gm/50ml Premix IV 06/18/24 09:29 50 mls/hr ONCE ONE Administration Pat [facility] 200 mg 06/17/24 21:00 06/18/24 12:33 Entacapone 200 Mg PO 07/17/24 20:59 200 mg QID ORIANA Administration Pantoprazole Sodium 40 mg 06/17/24 21:00 06/17/24 20:45 Pantoprazole 40mg Tablet PO 07/17/24 20:59 40 mg HS ORIANA Administration Pantoprazole Sodium 40 mg 06/18/24 09:30 06/18/24 10:55 Pat Own Med Pantoprazole 40mg PO 07/18/24 09:29 40 mg BID ORIANA Administration Sodium Chloride 3 ml 06/17/24 19:41 06/17/24 22:02 Sodium Chloride 3% 15ml Neb IH 07/17/24 19:40 3 ml ONCE PRN Administration INDUCE SPUTUM COLLECTION ORDERS Category Date Time Status CT cervical spine wo con Stat Cat Scan 06/17/24 14:[address] head/brain wo con Stat Cat Scan 06/17/24 14:20 Completed Chest XR 2 view (NOT portable) [XR chest 2V] Stat Exams 06/17/24 14:20 Completed CBC w/Auto Diff [Complete Blood Count Auto Diff] Stat Lab 06/17/24 14:45 Completed CMP [Comprehensive Metabolic Panel] Stat Lab 06/17/24 14:45 Completed Complete Blood Count Auto Diff AMLAB Lab 06/18/24 06:55 Completed Comprehensive Metabolic Panel AMLAB Lab 06/18/24 06:55 Completed Magnesium AMLAB Lab 06/18/24 06:55 Completed Magnesium Stat Lab 06/17/24 14:45 Completed Trop I [Troponin I] Stat Lab 06/17/24 14:45 Completed Troponin I Q3H Lab 06/17/24 17:38 Completed Troponin I Q3H Lab 06/17/24 20:46 Completed UA [Urinalysis and Microscopic] Stat Lab 06/17/24 15:41 Completed ECG Data Tracing #1: I reviewed this ECG and interpreted as documented below: EKG interpreted at 1437. First-degree AV block but no ST elevations or depressions. Normal sinus rhythm. QTc within normal limits Medical Decision Narrative: I, Wilmar Lopez MD, was present at the time of patient's arrival and agreed with the workup and plan mentioned below. Patient's workup is pending at this time and final disposition is to be determined by the oncoming provider, Dr. Tsang. In summary patient is a 73-year-old male who presents to the emergency department for evaluation of syncope and collapse. Patient is dynamically stable however of his blood pressure is on the low side of 115/67 with a heart rate of 65 at the time of my exam upon arrival, but afebrile. Physical exam is remarkable for a skin tear to the left elbow but no bony deformity and he is neurovascular intact distally in the left upper extremity, [place] Coma Score is currently 15, he has full range of motion of the neck with no midline C-spine tenderness on palpation normal breath sounds normal heart sounds peers to be sinus rhythm on the monitor. Differential diagnosis includes vasovagal syncope versus therapeutic misadventure with 2 water pills versus orthostatic hypotension versus cerebrovascular event etc. Initial workup will be conducted with hematologic labs CT scan of the head neck and chest x-ray and if his renal function supports that CTA of the head and neck. Initial interventions include acetaminophen. Initial workup reviewed by me [hematologic labs are remarkable for... Imaging remarkable for... Urinalysis remarkable for]. Upon repeat evaluation [patient had acceptable resolution of symptoms, had persistent pain for which additional interventions were conducted (describe interventions), tolerated p.o., was ambulatory, etc.]. Given this [patient is appropriate for discharge at this time and will be discharged with a prescription for... The case was discussed with hospital medicine regarding management and they will admit the patient their service for continued evaluation at this time... Etc.] <Harshal Tsang MD - Last Filed: 06/18/24 14:06> Vital Signs: 06/17/24 13:53 06/17/24 14:00 06/17/24 14:15 Temperature 97.6 F Temperature Source Oral Pulse Rate 73 71 Pulse Rate [Right Radial] 65 Respiratory Rate 20 Blood Pressure 103/63 L 115/64 Blood Pressure [Right Arm] 115/67 Blood Pressure Mean Blood Pressure Mean [Right Arm] 83 02 Sat by Pulse Oximetry 99 98 98 Oxygen Delivery Method Room Air 06/17/24 14:30 06/17/24 15:00 06/17/24 15:00 Temperature Temperature Source Pulse Rate 72 68 Pulse Rate [Right Radial] Respiratory Rate Blood Pressure 103/62 L 116/61 116/61 Blood Pressure [Right Arm] Blood Pressure Mean 82 Blood Pressure Mean [Right Arm] 02 Sat by Pulse Oximetry 97 96 Oxygen Delivery Method 06/17/24 16:37 Temperature 98.0 F Temperature Source Pulse Rate 67 Pulse Rate [Right Radial] Respiratory Rate 20 Blood Pressure 130/70 Blood Pressure [Right Arm] Blood Pressure Mean Blood Pressure Mean [Right Arm] 02 Sat by Pulse Oximetry Oxygen Delivery Method Room Air Lab Data Lab Results 06/17/24 14:21: Urine Color Yellow, Urine Appearance Clear, Urine pH 5.5, Ur Specific [place] 1.020, Urine Protein Negative, Urine Glucose (UA) Negative, Urine Ketones Negative, Urine Blood Negative, Urine Nitrate Negative, Urine Bilirubin Negative, Urine Urobilinogen 0.2, Ur Leukocyte Esterase Negative, Urine RBC Occasional, Urine WBC Occasional, Ur Squamous Epith Cells Occasional, Urine Bacteria 1+ 06/17/24 14:45: WBC 8.0, RBC 4.17 L, Hgb 13.9 L, Hct 40.4 L, MCV 96.7 H, MCH 33.3 H, MCHC 34.5, RDW 14.5, Plt Count 116 L, MPV 10.5 H, Neut % (Auto) 84.0 H, Lymph % (Auto) 9.3 L, Antelope % (Auto) 5.9, Eos % (Auto) 0.5, Baso % (Auto) 0.3, Neut # (Auto) 6.7, Lymph # (Auto) 0.7, Antelope # (Auto) 0.5, Eos # (Auto) 0.0, Baso # (Auto) 0.0, Sodium 132 L, Potassium 4.0, Chloride 96 L, Carbon Dioxide 33 H, Anion Gap 7.0, BUN 80 H, Creatinine 2.50 H, Estimated Creat Clear 30, Estimated GFR 25 L, Est GFR ( Amer) 31 L, Glucose 129 H, Calcium 9.7, Magnesium 1.7, Total Bilirubin 1.1, AST 17, ALT 6 L, Alkaline Phosphatase 100, Troponin I < 0.01, Total Protein 7.3, Albumin 4.9, Globulin 2.4, Albumin/Globulin Ratio 2.0 H Orders (Tests/Meds): ED MEDICATIONS Discontinued Medications Generic Name Dose Route Start Last Admin Trade Name Freq PRN Reason Stop Dose Admin Acetaminophen 1,000 mg 06/17/24 14:20 06/17/24 14:28 Acetaminophen 500mg Tab PO 06/17/24 14:21 1,000 mg ONCE ONE Administration Carbidopa/Levodopa 3 each 06/17/24 21:00 06/18/24 12:32 Carbidopa/Levodopa 25/100mg Tablet PO 07/17/24 20:59 3 each TID ORIANA Administration Gabapentin 600 mg 06/17/24 23:30 06/18/24 12:32 Gabapentin 600mg Tablet PO 07/17/24 23:29 600 mg TID ORIANA Administration Sodium Chloride 1,000 mls @ 999 mls/hr 06/17/24 15:20 06/17/24 15:40 Sod Chlor 0.9% 1000ml Bag IV 06/17/24 16:20 999 mls/hr .Q1H1M ONE Administration Lactated Ringer's 500 mls @ 250 mls/hr 06/17/24 18:35 06/17/24 19:04 Lactated Ringer's 1000 Ml Bag IV 06/17/24 20:34 250 mls/hr .Q2H ONE Administration Lactated Ringer's 500 mls @ 250 mls/hr 06/18/24 01:12 06/18/24 01:16 Lactated Ringer's 500ml IV 06/18/24 03:11 250 mls/hr .Q2H ONE Administration Magnesium Sulfate 2 gm in 50 mls @ 50 mls/hr 06/18/24 08:30 06/18/24 08:44 Magnesium Sulfate 2gm/50ml Premix IV 06/18/24 09:29 50 mls/hr ONCE ONE Administration Pat Own Med 200 mg 06/17/24 21:00 06/18/24 12:33 Entacapone 200 Mg PO 07/17/24 20:59 200 mg QID ORIANA Administration Pantoprazole Sodium 40 mg 06/17/24 21:00 06/17/24 20:45 Pantoprazole 40mg Tablet PO 07/17/24 20:59 40 mg HS OIRANA Administration Pantoprazole Sodium 40 mg 06/18/24 09:30 06/18/24 10:55 Pat Own Med Pantoprazole 40mg PO 07/18/24 09:29 40 mg BID ORIANA Administration Sodium Chloride 3 ml 06/17/24 19:41 06/17/24 22:02 Sodium Chloride 3% 15ml Neb IH 07/17/24 19:40 3 ml ONCE PRN Administration INDUCE SPUTUM COLLECTION ORDERS Category Date Time Status CT cervical spine wo con Stat Cat Scan 06/17/24 14:[address] head/brain wo con Stat Cat Scan 06/17/24 14:20 Completed Chest XR 2 view (NOT portable) [XR chest 2V] Stat Exams 06/17/24 14:20 Completed CBC w/Auto Diff [Complete Blood Count Auto Diff] Stat Lab 06/17/24 14:45 Completed CMP [Comprehensive Metabolic Panel] Stat Lab 06/17/24 14:45 Completed Complete Blood Count Auto Diff AMLAB Lab 06/18/24 06:55 Completed Comprehensive Metabolic Panel AMLAB Lab 06/18/24 06:55 Completed Magnesium AMLAB Lab 06/18/24 06:55 Completed Magnesium Stat Lab 06/17/24 14:45 Completed Trop I [Troponin I] Stat Lab 06/17/24 14:45 Completed Troponin I Q3H Lab 06/17/24 17:38 Completed Troponin I Q3H Lab 06/17/24 20:46 Completed UA [Urinalysis and Microscopic] Stat Lab 06/17/24 15:41 Completed Medical Decision Narrative: I, Wilmar Lopez MD, was present at the time of patient's arrival and agreed with the workup and plan mentioned below. Patient's workup is pending at this time and final disposition is to be determined by the oncoming provider, Dr. Tsang. In summary patient is a 73-year-old male who presents to the emergency department for evaluation of syncope and collapse. Patient is dynamically stable however of his blood pressure is on the low side of 115/67 with a heart rate of 65 at the time of my exam upon arrival, but afebrile. Physical exam is remarkable for a skin tear to the left elbow but no bony deformity and he is neurovascular intact distally in the left upper extremity, [place] Coma Score is currently 15, he has full range of motion of the neck with no midline C-spine tenderness on palpation normal breath sounds normal heart sounds peers to be sinus rhythm on the monitor. Differential diagnosis includes vasovagal syncope versus therapeutic misadventure with 2 water pills versus orthostatic hypotension versus cerebrovascular event etc. Initial workup will be conducted with hematologic labs CT scan of the head neck and chest x-ray and if his renal function supports that CTA of the head and neck. Initial interventions include acetaminophen. Initial workup reviewed by me and is significant for slight hyponatremia, acute on chronic renal failure with elevated BUN and creatinine and decreased GFR with the remainder of his hematologic labs being nonactionable and my informal interpretation of his imaging shows no acute fracture or bleed or other process prior to radiology read. Given that I had an interactive discussion with hospital medicine regarding patient management and patient will be admitted for further evaluation and care. Harshal Tsang MD: Patient was accepted for admission to the hospital under supervision of previous emergency medicine physician. Critical Care <Wilmar Lopez MD - Last Filed: 06/17/24 16:03> Critical Care Time Critical Care Time: No
--- NOTE | 2024-06-17 14:20 | XR_ITS ---
FINAL REPORT CLINICAL HISTORY: Syncope and collapse COMPARISON: 11/14/2023 FINDINGS: Two views of the chest were obtained. The heart size and pulmonary vascularity are within normal limits. The mediastinum is normal. No acute pulmonary abnormality is identified. There is no pneumothorax. The bony thorax is intact. IMPRESSION: No active cardiopulmonary disease. Reviewed, Interpreted and Dictated by Hung Stovall III, MD Transcribed by Aimee Luu Authenticated and . [facility]
--- NOTE | 2024-06-17 14:20 | CT_ITS ---
FINAL REPORT CLINICAL HISTORY: Syncope and collapse COMPARISON: August 16, 2023 FINDINGS: Axial images of the head were obtained without contrast. Coronal reformatted images were also obtained. This study was performed with techniques to keep radiation doses as low as reasonably achievable (ALARA). Individualized dose reduction techniques using automated exposure control or adjustment of mA and/or kV according to the patient''s size were employed. There is generalized age-appropriate atrophy. Periventricular low-attenuation areas are seen consistent with moderate chronic ischemic changes. Several chronic lacunar infarcts are present. There is no evidence of intracranial hemorrhage or mass. There is no evidence of acute infarct. There is no evidence of shift of the midline structures. No skull abnormality is seen on the bone window images. IMPRESSION: Atrophy and moderate periventricular chronic ischemic changes. No acute intracranial abnormality identified. Authenticated and ERN
--- NOTE | 2024-06-17 14:21 | CT_ITS ---
FINAL REPORT CLINICAL HISTORY: Syncope and collapse FINDINGS: Axial CT images of the cervical spine were obtained without contrast. Sagittal and coronal reformatted images were also obtained. This study was performed with techniques to keep radiation doses as low as reasonably achievable (ALARA). Individualized dose reduction techniques using automated exposure control or adjustment of mA and/or kV according to the patient''s size were employed. There is no evidence of fracture or dislocation. The bony alignment is normal. Mild and moderate degenerative changes are seen. Multilevel vertebral osteophytes are present. Multilevel bilateral neural foraminal narrowing is seen ranging from mild to severe. The neural foraminal narrowing is greatest at C6-7. There is no evidence of canal stenosis. Note is made of a 3.4 cm left thyroid mass. Bilateral coronary artery calcifications are seen. Limited images of the upper thorax are unremarkable. IMPRESSION: No fracture or acute bony abnormality identified. Mild and moderate degenerative changes. 3.4 cm left thyroid mass. Recommend correlation with thyroid ultrasound. Authenticated and ERN
[2024-06-17] MEDS: ACETAMINOPHEN 500MG TAB 1000 MG PO (14:28)
[2024-06-17 14:58] LABS: Basophils % 0.3 % (0.1-2.0); Eosinophils % 0.5 % (0.1-12.0); Hematocrit 40.4 % (42.0-52.0); Hemoglobin 13.9 g/dL (14.1-18.0); Lymphocytes # 0.7 K/mm3 (0.7-4.5); Lymphocytes % 9.3 % (10-50); Mean Corpuscular HGB Conc 34.5 g/dL (31.8-35.4); Mean Corpuscular Hemoglobin 33.3 pg (27.0-31.2); Mean Corpuscular Volume 96.7 fl (80-94); Mean Platelet Volume 10.5 fl (7.4-10.4); Monocytes # 0.5 K/mm3 (0.1-1.0); Monocytes % 5.9 % (1.7-9.3); Neutrophils # 6.7 K/mm3 (1.8-7.8); Platelet Count 116 K/mm3 (142-424); Red Blood Count 4.17 M/mm3 (4.60-6.20); Red Cell Distribution Width 14.5 % (11.5-17.5)
[2024-06-17 15:11] LABS: Albumin Level 4.9 g/dl (3.5-5.0); Chloride 96 mmol/L (98-107); Sodium 132 mmol/L (136-145)
[2024-06-17 15:14] LABS: Alanine Aminotransferase 6 U/L (12-78); Alkaline Phosphatase 100 U/L (38-126); Aspartate Amino Transferase 17 U/L (17-59); Bilirubin,Total 1.1 mg/dl (0.2-1.3); Carbon Dioxide 33 mmol/L (22.0-30.0); Creatinine Clearance Estimated 30 mL/min (50-200); Estimated Glomerular Filt Rate 25 ml/min (>60); GFR (African American) 31 ML/MIN (>60); Globulin 2.4 g/dL (1.3-3.2); Total Protein,Serum 7.3 g/dl (6.3-8.2)
[2024-06-17 15:15] LABS: Calcium 9.7 mg/dl (8.4-10.2); Glucose 129 mg/dl (74-100); Magnesium 1.7 mg/dl (1.6-2.3)
[2024-06-17 15:17] LABS: Blood Urea Nitrogen 80 mg/dl (9-20)
--- NOTE | 2024-06-17 15:17 | PC.NURSE ---
Don aware of BUN 80
--- NOTE | 2024-06-17 15:18 | PC.NURSE ---
2/2 pt BUN, no contrast, radiology aware per Don
[2024-06-17 15:30] LABS: Troponin I < 0.01 ng/ml (0.00-0.034)
[2024-06-17] MEDS: 0.9 % SODIUM CHLORIDE 1000ML 1,000 ML 999 ML IV (15:40)
[2024-06-17 15:44] LABS: Microscopic, Urine URINE MICROSCOPIC (MICROSCOPIC)
[2024-06-17 15:48] LABS: Appearance,Urine CLEAR (Clear); Bilirubin,Urine Negative (Negative); Blood, Urine Negative (Negative); Color,Urine YELLOW (Yellow); Glucose,Urine (UA) Negative (Negative); Ketones,Urine Negative (Negative); Leukocyte Esterase,Urine Negative (Negative); Nitrate,Urine Negative (Negative); PH,Urine 5.5 (5.0-8.5); Protein,Urine Negative (Negative); Urobilinogen,Urine 0.2 EU/dl (0.2)
[2024-06-17 16:08] LABS: RBC,Urine Occasional #/hpf (0-3); WBC,Urine Occasional #/hpf (0-3)
[2024-06-17 16:09] LABS: Bacteria,Urine 1+ /lpf; Squamous Epithelial Cell,Urine Occasional #/hpf (0-5)
--- NOTE | 2024-06-17 16:36 | PC.NURSE ---
called report to sushma grijalva on 2nd floor rn and answered all questions
--- NOTE | 2024-06-17 17:57 | EXP.HP ---
History of Present Illness *Admission Date: 06/17/24 *Reason for visit:: syncope *History of present illness: Mr. Maravilla is a 73-year-old male with history of Parkinson's, CKD, hypertension. On diuretics at home. Adjustments made to his blood pressure meds however he has continued to take his water pills. Presented to the ER for evaluation after an episode of collapse. Said the lights went out . States that Saturday he was sitting in his chair watching TV when he got up to go to the kitchen and had a syncopal event. Thinks he was unconscious for just a few seconds according to his . Has been sore since the fall. Continues to feel lightheaded and dizzy. Denies any chest pain, nausea, vomiting. No swelling in his legs. On presentation, also denies any bleeding or hemoptysis. Follows with neurology for Parkinson's. Workup in the ER concerning for kidney injury and dehydration with a BUN of 80 and creatinine of 2.5. White count normal at 8. Significant elevation from his baseline kidney function. Received IV fluids in the ER. Medicine was consulted for admission and further management with serial labs and gentle hydration. On arrival to the floor, patient sitting at bedside feeling comfortable. On room air. Afebrile. Tolerating p.o. intake. [facility] Disclaimer: The information contained in this section may have been updated after the patient was seen, as this information can be updated by other users. Medical History DM type 2 (diabetes mellitus, type 2) COPD (chronic obstructive pulmonary disease) GERD (gastroesophageal reflux disease) Single kidney Heart failure TIA (transient ischemic attack) Daytime somnolence Parkinson disease Surgical History History of cholecystectomy Hx of appendectomy H/O left nephrectomy Family History No significant family history Social History Smoking Status: Former smoker tobacco type: cigarettes second hand exposure: Yes alcohol intake: current alcohol intake frequency: a few times a month substance use type: denies use current occupational status: retired Travel in the last 8 weeks: None household members: spouse housing: house marital status: current occupational exposures/hazards: No caffeine: No Other Medical History Have you received the Flu Vaccine for this season: No Have you received the Pneumonia Vaccine: No Review of Systems Review of Systems Review of systems (narrative): 14 point review of systems performed, pertinent positives and negatives as per HPI Meds Home Medications and Allergies Home Medications ?Medication ?Instructions ?Recorded ?Confirmed ?Type folic acid 1 mg tablet See Rx Instructions .Route 08/12/23 06/17/24 Rx .COMPLEX #90 tabs entacapone 200 mg tablet 200 mg PO QID Parkinsons #120 tabs 11/15/23 06/17/24 Rx docusate sodium 50 mg capsule 50 mg PO DAILY 12/18/23 06/17/24 History simvastatin 20 mg tablet 20 mg PO HS 90 days #90 tabs 12/25/23 06/17/24 Rx gabapentin 600 mg tablet 600 mg PO TID 30 days #90 tabs 03/11/24 06/17/24 Rx allopurinol 100 mg tablet See Rx Instructions .Route 04/30/24 06/17/24 Rx .COMPLEX #90 tabs chlorthalidone 25 mg tablet See Rx Instructions .Route 04/30/24 06/17/24 Rx .COMPLEX #30 tabs pantoprazole 40 mg tablet,delayed See Rx Instructions .Route 05/07/24 06/17/24 Rx release .COMPLEX #180 tabs hydrocodone 10 mg-acetaminophen 1 tab PO Q4-6H PRN pain #120 tabs 06/08/24 06/17/24 Rx 325 mg tablet carbidopa 25 mg-levodopa 100 mg See Rx Instructions .Route 06/17/24 06/17/24 Rx tablet .COMPLEX #270 tabs furosemide 40 mg tablet 40 mg PO DAILY 06/17/24 06/17/24 History New Prescriptions to Start Prescriptions: Allergies Allergy/AdvReac Type Severity Reaction Status Date / Time mupirocin Allergy Verified 06/17/24 13:12 Exam Data for Last 24 hours Vital signs and Labs for Last 24 Hours: Temp Pulse Resp BP Pulse Ox O2 Del Method 98.0 F 65 19 130/79 99 Room Air 06/17/24 16:37 06/17/24 17:20 06/17/24 17:20 06/17/24 17:20 06/17/24 17:20 06/17/24 17:45 Laboratory Results - last 24 hr 06/17/24 14:21: Urine Color Yellow, Urine Appearance Clear, Urine pH 5.5, Ur Specific [place] 1.020, Urine Protein Negative, Urine Glucose (UA) Negative, Urine Ketones Negative, Urine Blood Negative, Urine Nitrate Negative, Urine Bilirubin Negative, Urine Urobilinogen 0.2, Ur Leukocyte Esterase Negative, Urine RBC Occasional, Urine WBC Occasional, Ur Squamous Epith Cells Occasional, Urine Bacteria 1+ 06/17/24 14:45: WBC 8.0, RBC 4.17 L, Hgb 13.9 L, Hct 40.4 L, MCV 96.7 H, MCH 33.3 H, MCHC 34.5, RDW 14.5, Plt Count 116 L, MPV 10.5 H, Neut % (Auto) 84.0 H, Lymph % (Auto) 9.3 L, [place] % (Auto) 5.9, Eos % (Auto) 0.5, Baso % (Auto) 0.3, Neut # (Auto) 6.7, Lymph # (Auto) 0.7, [place] # (Auto) 0.5, Eos # (Auto) 0.0, Baso # (Auto) 0.0, Sodium 132 L, Potassium 4.0, Chloride 96 L, Carbon Dioxide 33 H, Anion Gap 7.0, BUN 80 H, Creatinine 2.50 H, Estimated Creat Clear 30, Estimated GFR 25 L, Est GFR ( Amer) 31 L, Glucose 129 H, Calcium 9.7, Magnesium 1.7, Total Bilirubin 1.1, AST 17, ALT 6 L, Alkaline Phosphatase 100, Troponin I < 0.01, Total Protein 7.3, Albumin 4.9, Globulin 2.4, Albumin/Globulin Ratio 2.0 H I & O for Last 24 hours: Intake & Output 06/14/24 06/15/24 06/16/24 06/17/24 23:59 23:59 23:59 23:59 Weight 76.204 kg Constitutional Constitutional: no acute distress, average body habitus, chronically ill appearing and cooperative *Routine HEENT Exam Head: Present normocephalic and atraumatic Eye: Present EOMI and PERRL ENT: Present mucous membranes moist *Routine Neck Exam Neck: Present supple; Absent JVD Routine Chest/Breast/Axilla Exam Chest wall: Absent tenderness *Routine Respiratory Exam Respiratory: Present CTA bilaterally; Absent accessory muscle use, respiratory distress, rhonchi, wheezes or crackles *Routine Cardiovascular Exam Cardiovascular: Present RRR, Normal S1 and Normal S2; Absent murmur *Routine Abdominal Exam Abdominal: Present soft and normoactive bowel sounds; Absent tenderness or distended *Routine Rectal Exam Rectal:: deferred *Routine Genitalia Exam Genitalia:: deferred *Routine Extremities Exam Extremities: Absent cyanosis, clubbing or edema *Routine Skin Exam Skin: Present intact; Absent cyanosis or erythema *Routine Neurological Exam Neurological: Present alert, oriented X3, CN II-XII intact and moving all extremities; Absent sensory deficit Comments: Mild tremor Routine Psychiatric Exam Psychiatric: Present normal affect Assessment and Plan *Assessment and plan (1) Acute on chronic renal failure: Status: Acute Qualifiers: Acute renal failure type: unspecified Chronic kidney disease stage 3 subtype: stage 3b (GFR 30-44) Category: Medical Code(s): N17.9 - Acute kidney failure, unspecified; N18.9 - Chronic kidney disease, unspecified (2) Syncope and collapse: Status: Acute Category: Medical Code(s): R55 - Syncope and collapse (3) Parkinson's disease with dyskinesia, with fluctuations: Status: Acute Category: Medical Code(s): G20.B2 - Parkinson's disease with dyskinesia, with fluctuations (4) DM type 2 (diabetes mellitus, type 2): Status: Acute Qualifiers: Diabetes mellitus complication status: with other specified complication Diabetes mellitus shelter insulin use: without longwall headgate operator use Qualified Code(s): E11.69 - Type 2 diabetes mellitus with other specified complication Category: Medical Code(s): E11.9 - Type 2 diabetes mellitus without complications (5) Single kidney: Status: Acute Category: Medical Code(s): Z90.5 - Acquired absence of kidney (6) Neuropathy: Status: Acute Category: Medical Code(s): G62.9 - Polyneuropathy, unspecified (7) HTN (hypertension): Status: Chronic Qualifiers: Hypertension type: essential hypertension Qualified Code(s): I10 - Essential (primary) hypertension Category: Medical Code(s): I10 - Essential (primary) hypertension (8) HLD (hyperlipidemia): Status: Chronic Qualifiers: Hyperlipidemia type: other hyperlipidemia Qualified Code(s): E78.49 - Other hyperlipidemia Category: Medical Code(s): E78.5 - Hyperlipidemia, unspecified Plan 73-year-old male with hypertension, CKD, Parkinson's. Presented after syncopal event and persistent pain from fall. Workup in the ER concerning for KYLAH. Discussed case with ER provider, request admission for gentle hydration and serial labs. I agreed to admit for further management. Problems addressed as follows: KYLAH Syncope: CKD 3 - No signs of anemia, hemoglobin normal at 13.9. Suspect secondary to hypovolemia/dehydration in the setting of his KYLAH and overdiuresis. - Mild electrolyte disturbances with sodium of 132, chloride 96, potassium 4.0. Baseline kidney function with BUN 45 creatinine 1.6. BUN elevated today at 80 with creatinine of 2.5, consistent with prerenal state. -Continue gentle hydration, received fluids in the ER. Orally hydrating at this time. -Holding diuretics. Will administer an additional 500 cc of LR over 2 hours -Repeat E, CMP, magnesium ordered for the morning. I have also ordered BMP for this evening at 10 to monitor for trend and improvement. If showing improvement, tolerating p.o. intake, no signs of dizziness in the morning, anticipate discharge tomorrow -PT and OT to evaluate the patient in the morning Parkinson's: Continue home carbidopa/levodopa 25 mg / 100 mg 3 capsules 3 times a day. Continue entacapone 200 mg 4 times a day. Symptoms welcome. Neuropathy: Evaluate gabapentin pending patient's pain needs later as well as stability. Holding pain meds in the setting of syncope Hold allopurinol for gout in the setting of KYLAH Pantoprazole 40 mg nightly for chronic GERD Full code Regular diet Holding anticoagulation due to syncope
[2024-06-17 18:12] LABS: Troponin I < 0.01 ng/ml (0.00-0.034)
[2024-06-17] MEDS: LACTATED RINGERS 1000ML 500 ML 250 ML IV (19:04)
[2024-06-17] MEDS: CARBIDOPA/LEVODOPA 25/100MG TABLET 3 EACH PO (20:45)
[2024-06-17] MEDS: PANTOPRAZOLE 40MG TABLET 40 MG PO (20:45)
[2024-06-17 21:59] LABS: Troponin I < 0.01 ng/ml (0.00-0.034)
[2024-06-17] MEDS: SODIUM CHLORIDE 3% 15ML NEB 3 ML IH (22:02)
[2024-06-17 22:03] LABS: Chloride 97 mmol/L (98-107); Potassium 3.8 mmoL/L (3.5-5.1); Sodium 131 mmol/L (136-145)
[2024-06-17 22:06] LABS: Anion Gap 5.8 mEq/L (5-15); Blood Urea Nitrogen 77 mg/dl (9-20); Carbon Dioxide 32 mmol/L (22.0-30.0); Creatinine Clearance Estimated 32 mL/min (50-200); Estimated Glomerular Filt Rate 29 ml/min (>60); GFR (African American) 36 ML/MIN (>60)
[2024-06-17 22:07] LABS: Calcium 8.9 mg/dl (8.4-10.2); Glucose 102 mg/dl (74-100)
[2024-06-17] MEDS: GABAPENTIN 600MG TABLET 600 MG PO (23:30)
[2024-06-18] VITALS: PULSE 70
[2024-06-18] MEDS: RINGERS SOLUTION,LACTATED 500 ML 250 ML IV (01:16)
[2024-06-18 04:00] VITALS: BP 136/69; PULSE 75; PULSE 80; RESP 16; TEMP 36.5; O2SAT 97; BMI 25.2
--- NOTE | 2024-06-18 06:37 | PC.NURSE ---
remained a&ox4 tonight, but pleasantly confused at times - unable to find call light, although beside him/on belly, using phone to call speed operator, etc. ambulates to the toilet with 1x assist. BA on for safety. skin tears to left elbow - dsg c/d/i
[2024-06-18 07:34] LABS: Basophils # 0.1 K/mm3 (0-0.2); Basophils % 0.7 % (0.1-2.0); Eosinophils # 0.1 K/mm3 (0.0-0.4); Eosinophils % 0.9 % (0.1-12.0); Hematocrit 37.9 % (42.0-52.0); Hemoglobin 13.1 g/dL (14.1-18.0); Lymphocytes # 1.2 K/mm3 (0.7-4.5); Lymphocytes % 17.8 % (10-50); Mean Corpuscular HGB Conc 34.5 g/dL (31.8-35.4); Mean Corpuscular Hemoglobin 33.3 pg (27.0-31.2); Mean Corpuscular Volume 96.5 fl (80-94); Mean Platelet Volume 9.2 fl (7.4-10.4); Monocytes # 0.5 K/mm3 (0.1-1.0); Neutrophils % 73.8 % (37.0-80.0); Platelet Count 114 K/mm3 (142-424); Red Blood Count 3.93 M/mm3 (4.60-6.20); Red Cell Distribution Width 14.4 % (11.5-17.5); White Blood Count 6.7 K/mm3 (4.8-10.8)
[2024-06-18 07:41] LABS: Albumin Level 4.4 g/dl (3.5-5.0); Chloride 99 mmol/L (98-107); Potassium 3.9 mmoL/L (3.5-5.1); Sodium 133 mmol/L (136-145)
[2024-06-18 07:44] LABS: Alanine Aminotransferase 8 U/L (12-78); Albumin/Globulin Ratio 1.8 (1.1-1.8); Alkaline Phosphatase 91 U/L (38-126); Anion Gap 6.9 mEq/L (5-15); Aspartate Amino Transferase 18 U/L (17-59); Blood Urea Nitrogen 70 mg/dl (9-20); Calcium 9.3 mg/dl (8.4-10.2); Carbon Dioxide 31 mmol/L (22.0-30.0); Creatinine Clearance Estimated 34 mL/min (50-200); Estimated Glomerular Filt Rate 31 ml/min (>60); GFR (African American) 38 ML/MIN (>60); Globulin 2.4 g/dL (1.3-3.2); Glucose 104 mg/dl (74-100); Total Protein,Serum 6.8 g/dl (6.3-8.2)
[2024-06-18 07:45] LABS: Magnesium 1.6 mg/dl (1.6-2.3)
--- NOTE | 2024-06-18 07:53 | EXP.DC.SUM ---
General Admission date:: 06/17/24 Discharge date: 06/18/24 HPI HPI HPI: Mr. Maravilla is a 73-year-old male with history of Parkinson's, CKD, hypertension. On diuretics at home. Adjustments made to his blood pressure meds however he has continued to take his water pills. Presented to the ER for evaluation after an episode of collapse. Said the lights went out . States that Saturday he was sitting in his chair watching TV when he got up to go to the kitchen and had a syncopal event. Thinks he was unconscious for just a few seconds according to his . Has been sore since the fall. Continues to feel lightheaded and dizzy. Denies any chest pain, nausea, vomiting. No swelling in his legs. On presentation, also denies any bleeding or hemoptysis. Follows with neurology for Parkinson's. Workup in the ER concerning for kidney injury and dehydration with a BUN of 80 and creatinine of 2.5. White count normal at 8. Significant elevation from his baseline kidney function. Received IV fluids in the ER. Medicine was consulted for admission and further management with serial labs and gentle hydration. On arrival to the floor, patient sitting at bedside feeling comfortable. On room air. Afebrile. Tolerating p.o. intake. Hospital Course Hospital Course Hospital Course: 73-year-old male with hypertension, CKD, Parkinson's. Presented after syncopal event and persistent pain from fall. Workup in the ER concerning for KYLAH. Discussed case with ER provider, request admission for gentle hydration and serial labs. I agreed to admit for further management. Did well overnight. Kidney function responded to hydration. Hold diuretics. Given improvement in kidney function, stable to discharge home with close follow-up as an outpatient. No further syncope during admission. Problems addressed as follows: KYLAH Syncope: CKD 3 - No signs of anemia, hemoglobin normal at 13.9. Suspect secondary to hypovolemia/dehydration in the setting of his KYLAH and overdiuresis. Mild electrolyte disturbances with sodium of 132, chloride 96, potassium 4.0. Baseline kidney function with BUN 45 creatinine 1.6. BUN elevated today at 80 with creatinine of 2.5, consistent with prerenal state. Improved to BUN of 70, creatinine 2.1. Serial labs showed gradual decrease. Tolerating p.o. fluids. Recommend holding his diuretics at this time. Stable to discharge home given p.o. intake with holding diuretics. Needs repeat labs in 1 week to monitor normalization of kidney function. Therapy evaluated patient. Stable to discharge home with home health. Parkinson's: Continue home carbidopa/levodopa 25 mg / 100 mg 3 capsules 3 times a day. Continue entacapone 200 mg 4 times a day. Symptoms welcome. Neuropathy: Held gabapentin during admission. Okay to resume at discharge. Gout: Held allopurinol for gout in the setting of KYLAH, okay to resume at discharge Pantoprazole 40 mg nightly for chronic GERD Exam Data for Last 24 hours Vital signs and Labs for Last 24 Hours: Temp Pulse Resp BP Pulse Ox O2 Del Method 97.7 F 75 16 136/69 97 Room Air 06/18/24 04:00 06/18/24 04:00 06/18/24 04:00 06/18/24 04:00 06/18/24 04:00 06/18/24 06:28 Laboratory Results - last 24 hr 06/17/24 14:21: Urine Color Yellow, Urine Appearance Clear, Urine pH 5.5, Ur Specific [place] 1.020, Urine Protein Negative, Urine Glucose (UA) Negative, Urine Ketones Negative, Urine Blood Negative, Urine Nitrate Negative, Urine Bilirubin Negative, Urine Urobilinogen 0.2, Ur Leukocyte Esterase Negative, Urine RBC Occasional, Urine WBC Occasional, Ur Squamous Epith Cells Occasional, Urine Bacteria 1+ 06/17/24 14:45: WBC 8.0, RBC 4.17 L, Hgb 13.9 L, Hct 40.4 L, MCV 96.7 H, MCH 33.3 H, MCHC 34.5, RDW 14.5, Plt Count 116 L, MPV 10.5 H, Neut % (Auto) 84.0 H, Lymph % (Auto) 9.3 L, [place] % (Auto) 5.9, Eos % (Auto) 0.5, Baso % (Auto) 0.3, Neut # (Auto) 6.7, Lymph # (Auto) 0.7, [place] # (Auto) 0.5, Eos # (Auto) 0.0, Baso # (Auto) 0.0, Sodium 132 L, Potassium 4.0, Chloride 96 L, Carbon Dioxide 33 H, Anion Gap 7.0, BUN 80 H, Creatinine 2.50 H, Estimated Creat Clear 30, Estimated GFR 25 L, Est GFR ( Amer) 31 L, Glucose 129 H, Calcium 9.7, Magnesium 1.7, Total Bilirubin 1.1, AST 17, ALT 6 L, Alkaline Phosphatase 100, Troponin I < 0.01, Total Protein 7.3, Albumin 4.9, Globulin 2.4, Albumin/Globulin Ratio 2.0 H 06/17/24 17:38: Troponin I < 0.01 06/17/24 20:46: Troponin I < 0.01 06/17/24 21:49: Sodium 131 L, Potassium 3.8, Chloride 97 L, Carbon Dioxide 32 H, Anion Gap 5.8, BUN 77 H, Creatinine 2.20 H, Estimated Creat Clear 32, Estimated GFR 29 L, Est GFR ( Amer) 36 L, Glucose 102 H D, Calcium 8.9 06/18/24 06:55: Sodium 133 L, Potassium 3.9, Chloride 99, Carbon Dioxide 31 H, Anion Gap 6.9, BUN 70 H, Creatinine 2.10 H, Estimated Creat Clear 34, Estimated GFR 31 L, Est GFR ( Amer) 38 L, Glucose 104 H, Calcium 9.3, Magnesium 1.6, Total Bilirubin 1.0, AST 18, ALT 8 L D, Alkaline Phosphatase 91, Total Protein 6.8, Albumin 4.4 D, Globulin 2.4, Albumin/Globulin Ratio 1.8 I & O for Last 24 hours: Intake & Output 06/15/24 06/16/24 06/17/24 06/18/24 23:59 23:59 23:59 23:59 Intake Total 240 / 980 1240 / 1240 Output Total 0 / 0 0 / 0 Balance 240 / 980 1240 / 1240 Weight 76.204 kg 77.337 kg Microbiology Reports for the Last 24 Hours: Microbiology 06/17/24 23:20 Sputum - Expectorated Sputum Gram Stain - Final Constitutional Constitutional: no acute distress, average body habitus, chronically ill appearing and cooperative *Routine HEENT Exam Head: Present normocephalic and atraumatic Eye: Present EOMI and PERRL ENT: Present mucous membranes moist *Routine Neck Exam Neck: Present supple; Absent lymphadenopathy *Routine Respiratory Exam Respiratory: Present CTA bilaterally and normal respiratory effort; Absent respiratory distress, rhonchi, wheezes or crackles *Routine Cardiovascular Exam Cardiovascular: Present RRR *Routine Abdominal Exam Abdominal: Present soft and normoactive bowel sounds; Absent tenderness *Routine Rectal Exam Patient deferred: visual exam *Routine Exam Patient deferred: penile exam *Routine Extremities Exam Extremities: Absent cyanosis, clubbing or edema *Routine Skin Exam Skin: Present intact and warm; Absent rash *Routine Neurological Exam Neurological: Present alert, oriented X3, CN II-XII intact and moving all extremities; Absent altered mental status Comments: cogwheeling in UE Bilat. stable but shuffling gait (baseline) Results Data Completed and Pending Labs on day of discharge: Labs from last 24 hours 06/18/24 06/17/24 06/17/24 06:55 21:49 20:46 WBC RBC Hgb Hct MCV MCH MCHC RDW Plt Count MPV Neut % (Auto) Lymph % (Auto) [place] % (Auto) Eos % (Auto) Baso % (Auto) Neut # (Auto) Lymph # (Auto) [place] # (Auto) Eos # (Auto) Baso # (Auto) Sodium 133 L 131 L Potassium 3.9 3.8 Chloride 99 97 L Carbon Dioxide 31 H 32 H Anion Gap 6.9 5.8 BUN 70 H 77 H Creatinine 2.10 H 2.20 H Estimated Creat Clear 34 32 Estimated GFR 31 L 29 L Est GFR ( Amer) 38 L 36 L Glucose 104 H 102 H D Calcium 9.3 8.9 Magnesium 1.6 Total Bilirubin 1.0 AST 18 ALT 8 L D Alkaline Phosphatase 91 Troponin I < 0.01 Total Protein 6.8 Albumin 4.4 D Globulin 2.4 Albumin/Globulin Ratio 1.8 Urine Color Urine Appearance Urine pH Ur Specific [place] Urine Protein Urine Glucose (UA) Urine Ketones Urine Blood Urine Nitrate Urine Bilirubin Urine Urobilinogen Ur Leukocyte Esterase Urine RBC Urine WBC Ur Squamous Epith Cells Urine Bacteria 06/17/24 06/17/24 06/17/24 17:38 14:45 14:21 WBC 8.0 RBC 4.17 L Hgb 13.9 L Hct 40.4 L MCV 96.7 H MCH 33.3 H MCHC 34.5 RDW 14.5 Plt Count 116 L MPV 10.5 H Neut % (Auto) 84.0 H Lymph % (Auto) 9.3 L [place] % (Auto) 5.9 Eos % (Auto) 0.5 Baso % (Auto) 0.3 Neut # (Auto) 6.7 Lymph # (Auto) 0.7 [place] # (Auto) 0.5 Eos # (Auto) 0.0 Baso # (Auto) 0.0 Sodium 132 L Potassium 4.0 Chloride 96 L Carbon Dioxide 33 H Anion Gap 7.0 BUN 80 H Creatinine 2.50 H Estimated Creat Clear 30 Estimated GFR 25 L Est GFR ( Amer) 31 L Glucose 129 H Calcium 9.7 Magnesium 1.7 Total Bilirubin 1.1 AST 17 ALT 6 L Alkaline Phosphatase 100 Troponin I < 0.01 < 0.01 Total Protein 7.3 Albumin 4.9 Globulin 2.4 Albumin/Globulin Ratio 2.0 H Urine Color Yellow Urine Appearance Clear Urine pH 5.5 Ur Specific [place] 1.020 Urine Protein Negative Urine Glucose (UA) Negative Urine Ketones Negative Urine Blood Negative Urine Nitrate Negative Urine Bilirubin Negative Urine Urobilinogen 0.2 Ur Leukocyte Esterase Negative Urine RBC Occasional Urine WBC Occasional Ur Squamous Epith Cells Occasional Urine Bacteria 1+ DS: Diagnosis Discharge Diagnosis (1) KYLAH (acute kidney injury): Status: Acute Code(s): N17.9 - Acute kidney failure, unspecified (2) Chronic kidney disease, stage 3b: Status: Chronic Code(s): N18.32 - Chronic kidney disease, stage 3b (3) Acute on chronic renal failure: Status: Acute Code(s): N17.9 - Acute kidney failure, unspecified; N18.9 - Chronic kidney disease, unspecified Qualifiers: Acute renal failure type: unspecified Chronic kidney disease stage 3 subtype: stage 3b (GFR 30-44) (4) Syncope and collapse: Status: Acute Code(s): R55 - Syncope and collapse Problem details: 06/13/2024 with exacerbation of chronic neck pain and scalp dysesthesia (5) Parkinson's disease with dyskinesia, with fluctuations: Status: Chronic Code(s): G20.B2 - Parkinson's disease with dyskinesia, with fluctuations Problem details: Ran out of carbidopa/levodopa CR (6) DM type 2 (diabetes mellitus, type 2): Status: Acute Code(s): E11.9 - Type 2 diabetes mellitus without complications Qualifiers: Diabetes mellitus complication status: with other specified complication Diabetes mellitus residential insulin use: without residential use Qualified Code(s): E11.69 - Type 2 diabetes mellitus with other specified complication (7) Single kidney: Status: Acute Code(s): Z90.5 - Acquired absence of kidney (8) Neuropathy: Status: Acute Code(s): G62.9 - Polyneuropathy, unspecified (9) HTN (hypertension): Status: Chronic Code(s): I10 - Essential (primary) hypertension Qualifiers: Hypertension type: essential hypertension Qualified Code(s): I10 - Essential (primary) hypertension (10) HLD (hyperlipidemia): Status: Chronic Code(s): E78.5 - Hyperlipidemia, unspecified Qualifiers: Hyperlipidemia type: other hyperlipidemia Qualified Code(s): E78.49 - Other hyperlipidemia Meds Home Medications and Allergies Home Medications ?Medication ?Instructions ?Recorded ?Confirmed ?Type docusate sodium 50 mg capsule 100 mg PO DAILY 12/18/23 06/17/24 History simvastatin 20 mg tablet 20 mg PO HS 90 days #90 tabs 12/25/23 06/17/24 Rx gabapentin 600 mg tablet 600 mg PO TID 30 days #90 tabs 03/11/24 06/17/24 Rx allopurinol 100 mg tablet See Rx Instructions .Route 04/30/24 06/17/24 Rx .COMPLEX #90 tabs hydrocodone 10 mg-acetaminophen 1 tab PO Q4-6H PRN pain #120 tabs 06/08/24 06/17/24 Rx 325 mg tablet entacapone 200 mg tablet 200 mg PO QID Parkinsons #120 tabs 06/17/24 06/17/24 Rx furosemide 40 mg tablet 40 mg PO DAILY 06/17/24 06/17/24 History carbidopa 25 mg-levodopa 100 mg 3 tab PO TID 06/18/24 06/18/24 History tablet carbidopa ER 50 mg-levodopa 200 mg 1 tab PO BID 06/18/24 06/18/24 History tablet,extended release folic acid 1 mg tablet 1 mg PO DAILY 06/18/24 06/18/24 History pantoprazole 40 mg tablet,delayed 40 mg PO BID 06/18/24 06/18/24 History release New Prescriptions to Start Prescriptions: Allergies Allergy/AdvReac Type Severity Reaction Status Date / Time mupirocin Allergy Verified 06/17/24 13:12 Discharge Plan Disposition Patient Disposition: Home Health Service Condition: Fair Discharge Order Discharge Orders: Discharge Order (Routine); Ordered 06/18/24 Ordered By: Polo Davidson Follow up Plan Follow up with: Kwan Beth DO [Primary Care Provider] - 06/25/24 10:30 am Prescriptions/Medication Reconciliation: Continued docusate sodium 50 mg capsule 100 mg PO DAILY entacapone 200 mg tablet 200 mg PO QID Qty: 120 6RF Rx Instructions: administer at the same time as l-dopa/carbidopa dose hydrocodone-acetaminophen 10-325 mg tablet 1 tab PO Q4-6H PRN (Reason: pain) Qty: 120 0RF simvastatin 20 mg tablet 20 mg PO HS 90 Days Qty: 90 4RF gabapentin 600 mg tablet 600 mg PO TID 30 Days Qty: 90 3RF allopurinol 100 mg tablet See Rx Instructions .ROUTE .COMPLEX Qty: 90 2RF Dose Instruction: TAKE ONE TABLET BY MOUTH EVERY DAY Rx Instructions: TAKE ONE TABLET BY MOUTH EVERY DAY pantoprazole 40 mg tablet,delayed release (DR/EC) 40 mg PO BID Patient Comments: TAKE ONE TABLET BY MOUTH TWICE DAILY folic acid 1 mg tablet 1 mg PO DAILY Patient Comments: TAKE ONE TABLET BY MOUTH EVERY DAY carbidopa-levodopa 25-100 mg tablet 3 tab PO TID Patient Comments: TAKE THREE TABLETS BY MOUTH THREE TIMES DAILY FOR parkinson carbidopa-levodopa 50-200 mg tablet extended release 1 tab PO BID Rx Instructions: divide evenly over waking hours Held furosemide 40 mg tablet 40 mg PO DAILY Hold Instructions: pending follow-up with PCP and repeat labs Discontinued hydrochlorothiazide 12.5 mg Tablet 12.5 mg PO DAILY chlorthalidone 25 mg tablet 25 mg PO DAILY Problem Reconciliation Problems Reviewed?: Yes Patient Discharge Instructions ACTIVITY: Continue current activity and Ambulate as tolerated DIET: continue same diet Patient Instructions: DI for Acute Kidney Injury Print Language: Tajik Providers Primary Care Provider: Kwan Beth Admit Provider: Polo Davidson Attending Provider: Polo Davidson
[2024-06-18 08:00] VITALS: BP 150/67; PULSE 70; PULSE 74; RESP 19; TEMP 36.6; O2SAT 100
--- NOTE | 2024-06-18 08:08 | HMH.PTEV ---
Physical Therapy Evaluation Rehab PT IP Evaluation Start: 06/17/24 18:36 Freq: ONCE Status: Active Protocol: Document 06/18/24 07:53 PANFILO (Rec: 06/18/24 08:07 PANFILO [id number]) Subjective/History History History Per H&P: Mr. Maravilla is a 73 -year-old male with history of Parkinson's, CKD, hypertension. On diuretics at home. Adjustments made to his blood pressure meds however he has continued to take his water pills. Presented to the ER for evaluation after an episode of collapse. Said the lights went out . States that Saturday he was sitting in his chair watching TV when he got up to go to the kitchen and had a syncopal event. Thinks he was unconscious for just a few seconds according to his . Has been sore since the fall. Continues to feel lightheaded and dizzy. Denies any chest pain, nausea, vomiting. No swelling in his legs. On presentation, also denies any bleeding or hemoptysis. Follows with neurology for Parkinson's. Workup in the ER concerning for kidney injury and dehydration with a BUN of 80 and creatinine of 2.5. White count normal at 8. Significant elevation from his baseline kidney function. Received IV fluids in the ER. Medicine was consulted for admission and further management with serial labs and gentle hydration. Subjective Subjective Pt reports he lives with his in a single-story home with 1 [address]. Pt's is around during the day. Pt's does the cooking, cleaning, and driving. Pt usually IND with ADLs and functional mobility with intermittent use of RW. Denies any falls in past 30 days ( besides syncope prior to admission). New diagnosis of cancer in past 12 No months? Rehab PT IP Eval Objective Appearance Patient Behavior Appropriate,Cooperative Patient Orientation Person,Situation Difficulty following instructions none Speech Pattern Soft-Spoken Ambulation Patient Able to Ambulate Yes Ambulation Observation IP General Gait Pattern Observation Shuffling Step Ambulation Distance (feet) 20 Ambulation Assistive Device Rolling Walker Ambulation Ability Supervision/Stand by Balance Ability to Arise Able, uses arms to help Sitting Balance Steady, safe Standing Balance Steady, wide stance Transfers Bed Transfer Ability Minimal x 1 (25% assist) Sit to Stand Bed Transfer Ability Supervision/Stand by Rehab PT IP prob,goals,plan Problems Date of Evaluation: 06/18/24 PT IP Problems Bed Mobility,Transfers,Balance ,Self care,Safety Rehab Potential Rehab Potential Good Plan PT Intervention Plan Bed Mobility,Transfers,Gait, Balance,Safety,Therapeutic Exercise Other Intervention Plan 1-2 times PT Plan Frequency Daily Duration LOS Discharge Goals Bed Transfer Ability Independent Sit to Stand Chair Transfer Ability Independent Ambulation Assistive Device Rolling Walker Ambulation Distance (feet) 40 Discharge Plan PT Discharge Plan Initial physical therapy evaluation performed. Patient presents below baseline at this time in functional mobility, transfers, gait, and strength. Pt would benefit from skilled PT while at [facility] to prevent further functional decline and maximize safety with mobility. Pt demo'd some freezing gait patterns but was able to correct with RW, extra time, and no LOB. Pt safe to d/c home when deemed medically necessary d/t current level of mobility, home set-up, and family support. PT recommending outpatient or home health PT services to address coordination and balance deficits. Eval Complexity Eval Charge Codes 51602 - Moderate Complexity PHYSICIAN CERTIFICATION: I certify the specified therapy services for Hung Maravilla are required, authorized, and reviewed every 30 days.
[2024-06-18] MEDS: CARBIDOPA/LEVODOPA 25/100MG TABLET 3 EACH PO ×2 (08:41→12:32)
[2024-06-18] MEDS: GABAPENTIN 600MG TABLET 600 MG PO ×2 (08:41→12:32)
[2024-06-18] MEDS: ENTACAPONE 200 MG 200 EACH PO ×2 (08:43→12:33)
[2024-06-18] MEDS: MAGNESIUM SULFATE IN WATER 2 GM/50 ML PIGGYBACK IV (08:44)
--- NOTE | 2024-06-18 09:29 | SW/DCPLANNER ---
Addendum entered by Reema Malone 06/18/24 13:11: Per [facility] patient has been accepted for home health services. Addendum entered by Reema Malone 06/18/24 11:41: Patient information/order has been faxed to [facility]. I will follow up once reviewed. Original Note: I spoke w/ this patient and his regarding plans once medically stable for discharge. PT evaluated patient and recommended home health services vs outpatient PT. Patient and are agreeable to home health (no preference). I will set up home health services at time of discharge. Per patient will discharge home this afternoon.
[2024-06-18] MEDS: PAT OWN MED ***PANTOPRAZOLE 40MG 40 MG PO (10:55)
--- NOTE | 2024-06-19 13:43 | SW/DCPLANNER ---
Hospital follow up phone call: stated that patient is doing fine at home. is aware of follow up appointment and that home health services will start the first of next week. No further questions/needs at this time.
== END 2024-06-18 12:51 | disposition home health service (06) ==
LOC: ER 16:17 → 2ND 16:23
PROVIDERS: Physician Assistant; Admitting Provider Internal Medicine Adolescent Medicine; Emergency Provider Student in an Organized Health Care Education/Training Program; PCP Internal Medicine; Visit Provider Internal Medicine Adolescent Medicine
DX: N17.9 Acute kidney failure, unspecified (principal); R55 Syncope and collapse; G20.B2 Parkinson's disease with dyskinesia, with fluctuations; E11.69 Type 2 diabetes mellitus with other specified complication; Z90.5 Acquired absence of kidney; G62.9 Polyneuropathy, unspecified; I12.9 Hypertensive chronic kidney disease with stage 1 through stage 4 chronic kidney disease, or unspecified chronic kidney disease; E78.49 Other hyperlipidemia; N18.32 Chronic kidney disease, stage 3b; M54.6 Pain in thoracic spine; E11.22 Type 2 diabetes mellitus with diabetic chronic kidney disease; Z79.899 Other long term (current) drug therapy; Z87.891 Personal history of nicotine dependence
CPT/HCPCS: 36415; 70450; 71046; 72125; 80048; 80053; 81001; 83735; 84484; 85025; 87070; 87205; 93005; 97162; 99285; G0378; J3475; J7030; J7120

== ENCOUNTER 2024-06-29 14:54 | Outpatient (CLI) | payer MEDICARE, OTHER, SELFPAY ==
--- NOTE | 2024-06-29 14:59 | US_ITS ---
PROCEDURE INFORMATION: Exam: US Soft Tissue Head and Neck, Thyroid Exam date and time: 06/29/2024 3:15 PM Age: 73 years old Clinical indication: Abnormal findings; Abnormal radiologic study of neck; Additional info: Thurooid mass TECHNIQUE: Imaging protocol: Real-time ultrasound scan of the neck with image documentation. Exam focused on the thyroid. COMPARISON: No relevant prior studies available. FINDINGS: Right thyroid lobe: 5.0 mL. Homogeneous echotexture without dominant solid or suspicious nodule. Left thyroid lobe: 35.3 mL. Heterogeneous echotexture with a large mixed cystic and solid nodule measuring approximately 3.7 x 4.0 x 3.6 cm. Isthmus: 6 mm IMPRESSION: Asymmetric enlargement of the LEFT thyroid lobe with a large complex cystic-solid nodule (TI-RADS 3). COMMENT: Recommendations for TI-RADS 3: TI-RADS 3, Mildly suspicious. 3 points: FNA if equal or greater than 2.5 cm. Follow-up ultrasound if 1.5 to 2.4 cm in 1, 3, and 5 years. REFERENCES: Emmysler FN, Anahi WD, Britton EG et al. ACR Thyroid Imaging, Reporting and Data System (TI-RADS): White Paper of the ACR TI-RADS Committee. J Am Karishma Radiol. 2017; 14: 587-595. Upper Limit Of Normal Thyroid Volume: Women: <18 mL Men: <25 mL 15-16 years: <16 mL
== END 2024-06-29 23:59 | disposition home or self-care (01) ==
LOC: RAD 14:55
PROVIDERS: PCP Internal Medicine; Visit Provider Specialist
DX: E07.89 Other specified disorders of thyroid (principal)
CPT/HCPCS: 76536

== ENCOUNTER 2024-07-09 14:37 | Outpatient (CLI) | payer MEDICARE, OTHER, SELFPAY ==
[2024-07-09 15:50] LABS: Free T4 (Free Thyroxine) 1.08 ng/dl (0.78-2.19)
== END 2024-07-09 23:59 | disposition home or self-care (01) ==
LOC: LAB 14:39
PROVIDERS: PCP Internal Medicine; Visit Provider Student in an Organized Health Care Education/Training Program
DX: E07.9 Disorder of thyroid, unspecified (principal)
CPT/HCPCS: 36415; 84439; 84443

== ENCOUNTER 2024-07-10 07:51 | Outpatient (CLI) | payer MEDICARE, OTHER, SELFPAY ==
--- NOTE | 2024-07-10 07:51 | US_ITS ---
FINAL REPORT CLINICAL HISTORY: LT LOBE FNA-- REMI NAIK-- FINDINGS: Ultrasound guided thyroid biopsy. HISTORY: Left thyroid mass. Attending radiologist: Dr. Stovall Physician Paper Bag Inspector: Remi Dinero PA-C PROCEDURE: After informed consent was obtained and a time-out was performed, the patient was prepped and draped in usual sterile fashion over the left neck. Utilizing local anesthesia and sterile technique with a 25-gauge needle, access to lesion was obtained. Four passes were made under direct ultrasound guidance. The patient received no conscious sedation. The patient tolerated procedure well and left the department in good condition. IMPRESSION: Status post ultrasound guided biopsy of thyroid without immediate complication. Films reviewed , interpreted and dictated by Dr. Stovall. Transcribed by Remi Dinero PA-C. Reviewed, Interpreted and Dictated by Hung Stovall III, MD Transcribed by GUMARO Phillips Authenticated and [facility]
== END 2024-07-10 23:59 | disposition home or self-care (01) ==
LOC: RAD 07:51
PROVIDERS: PCP Internal Medicine; Visit Provider Student in an Organized Health Care Education/Training Program
DX: E07.89 Other specified disorders of thyroid (principal)
CPT/HCPCS: 10005; 88173; 88305

== ENCOUNTER 2024-08-06 11:57 | Emergency (ER) | payer MEDICARE, OTHER, SELFPAY ==
[2024-08-06] VITALS (16 sets, daily range): BP systolic 105–154; BP diastolic 50–73; PULSE 60–94; RESP 15–24; TEMP 36.7; O2SAT 93–100; BMI 25.8
--- NOTE | 2024-08-06 12:04 | ED_ITS ---
Discharge Plan Disposition Patient Disposition: Home, Self-Care Condition: Good Prescriptions Prescriptions: New pteeltroozmfvpq-gdqjphufc-FB [Bromfed DM] 2-30-10 mg/5 mL syrup 5 ml PO Q4H PRN (Reason: sinus symptoms) Qty: 118 0RF No Action docusate sodium 50 mg capsule 100 mg PO DAILY hydrocodone-acetaminophen 10-325 mg tablet 1 tab PO Q4-6H PRN (Reason: pain) Qty: 120 0RF carbidopa-levodopa 50-200 mg tablet extended release 1 tab PO QID Qty: 120 4RF Rx Instructions: divide evenly over waking hours entacapone 200 mg tablet 200 mg PO QID Qty: 120 6RF Rx Instructions: administer at the same time as l-dopa/carbidopa dose mecobalamin (vitamin B12) 1,000 mcg lozenge 1,000 mcg PO DAILY Rx Instructions: allow to dissolve in mouth OR may chew lightly before swallowing furosemide 20 mg tablet 20 mg PO DAILY PRN (Reason: edema) Qty: 60 2RF simvastatin 20 mg tablet 20 mg PO HS 90 Days Qty: 90 4RF allopurinol 100 mg tablet See Rx Instructions .ROUTE .COMPLEX Qty: 90 2RF Dose Instruction: TAKE ONE TABLET BY MOUTH EVERY DAY Rx Instructions: TAKE ONE TABLET BY MOUTH EVERY DAY aspirin [Adult Low Dose Aspirin] 81 mg tablet,delayed release (DR/EC) 81 mg PO DAILY gabapentin 600 mg tablet See Rx Instructions .ROUTE .COMPLEX Qty: 90 3RF Dose Instruction: TAKE ONE TABLET BY MOUTH THREE TIMES DAILY MAY CAUSE DROWSINESS Rx Instructions: TAKE ONE TABLET BY MOUTH THREE TIMES DAILY MAY CAUSE DROWSINESS pantoprazole 40 mg tablet,delayed release (DR/EC) 40 mg PO BID Patient Comments: TAKE ONE TABLET BY MOUTH TWICE DAILY Referrals Follow up/Referrals: Kwan Beth DO [Primary Care Provider] - See instructions Rudy Torres MD [Physician] - See instructions Activity Restrictions/Add. Instructions Additional Instructions/Restrictions: Please follow-up with neurology next week for reevaluation of your Parkinson's. I have sent Bromfed into your pharmacy to try and help with your cough. I have also referred you to pulmonology for further evaluation of your cough. Follow- up with your PCP for no improvement or worsening signs or symptoms as needed. Clinical Impressions Clinical Impression: Asthenia Cough Qualifiers: Cough type: subacute Qualified Code(s): R05.2 - Subacute cough Print Language Print Language: Macedonian Discharge ED Provider: Gurvinder Simmons General Adult HPI <GUMARO Montes - Last Filed: 08/06/24 15:41> General Chief complaint: Weakness Stated complaint: not eaten 5 days weak cough Time Seen by Provider: 08/06/24 12:04 History of Present Illness HPI narrative: Patient presents for evaluation of cough and weakness. Patient has Parkinson's disease chronic kidney disease solitary kidney secondary to renal cell carcinoma, type 2 diabetes mellitus, cardiovascular disease, hypertension, diastolic heart failure. Patient and patient's family state that he has not eaten in 5 days and has had decreased p.o. intake. He denies fever chills mopped assist hematochezia melena nausea vomiting or diarrhea. He is unable to produce sputum due to his cough being so weak. Related Data Home Medications ?Medication ?Instructions ?Recorded ?Confirmed docusate sodium 50 mg capsule 100 mg PO DAILY 12/18/23 08/03/24 pantoprazole 40 mg tablet,delayed 40 mg PO BID 06/18/24 08/03/24 release aspirin 81 mg tablet,delayed 81 mg PO DAILY 07/08/24 08/03/24 release (Adult Low Dose Aspirin) mecobalamin (vitamin B12) 1,000 1,000 mcg PO DAILY 07/08/24 08/03/24 mcg lozenges Previous Rx's ?Medication ?Instructions ?Recorded simvastatin 20 mg tablet 20 mg PO HS 90 days #90 tabs 12/25/23 allopurinol 100 mg tablet See Rx Instructions .Route 04/30/24 .COMPLEX #90 tabs hydrocodone 10 mg-acetaminophen 1 tab PO Q4-6H PRN pain #120 tabs 06/08/24 325 mg tablet carbidopa ER 50 mg-levodopa 200 mg 1 tab PO QID #120 tabs 06/24/24 tablet,extended release entacapone 200 mg tablet 200 mg PO QID Parkinsons #120 tabs 06/24/24 furosemide 20 mg tablet 20 mg PO DAILY PRN edema #60 tabs 07/02/24 gabapentin 600 mg tablet See Rx Instructions .Route 07/20/24 .COMPLEX #90 tabs ilkeypowoppyupe-ykjzxicckyopvls-GW 5 ml PO Q4H PRN sinus symptoms 08/06/24 2 mg-30 mg-10 mg/5 mL oral syrup #118 mL (Bromfed DM) Allergies Allergy/AdvReac Type Severity Reaction Status Date / Time mupirocin Allergy Verified 08/03/24 08:42 PFSH <GUMARO Montes - Last Filed: 08/06/24 15:41> PFS Disclaimer: The information contained in this section may have been updated after the patient was seen, as this information can be updated by other users. Medical History Thyroid nodule Enlarged thyroid Deviated septum Thyroid mass Healthcare maintenance Acute ischemic stroke History of TIA (transient ischemic attack) DM type 2 (diabetes mellitus, type 2) COPD (chronic obstructive pulmonary disease) GERD (gastroesophageal reflux disease) Single kidney Heart failure TIA (transient ischemic attack) Daytime somnolence Parkinson disease Symptomatic improvement with carbidopa/levodopa and entacapone Surgical History History of cholecystectomy Hx of appendectomy H/O left nephrectomy Family History Other No significant family history Social History Smoking Status: Never smoker second hand exposure: Yes alcohol intake: current alcohol intake frequency: a few times a month substance use type: denies use current occupational status: retired household members: spouse housing: house marital status: current occupational exposures/hazards: No caffeine: No Other Medical History Have you received the Flu Vaccine for this season: No Have you received the Pneumonia Vaccine: No <GUMARO Montes - Last Filed: 08/06/24 15:41> ROS Obtained: Yes Systems reviewed as appropriate & no additional complaints except as documented Physical Exam <GUMARO Montes - Last Filed: 08/06/24 15:41> General General appearance: alert and in no apparent distress Respiratory Respiratory exam: Present normal lung sounds bilaterally Cardiovascular Cardiovascular exam: Present regular rate Neurological Exam Neurological exam: Present alert and oriented X3 Medical Decision Making <GUMARO Montes - Last Filed: 08/06/24 15:41> Medical Records Medical records reviewed: Yes I reviewed the patient's medical records. Screening: Per USPSTF and CDC recommendations, given the prevalence of disease in our region, it is our hospital?s policy to screen for HIV and viral Hepatitis for all patients aged 18 and over and those with ongoing risk factors. Antoine Inquiry Pt receiving controlled substance: No Vital Signs: 08/06/24 12:03 08/06/24 12:07 08/06/24 12:15 Temperature 98.0 F Temperature Source Temporal Artery Scan Pulse Rate 79 Pulse Rate [Right Brachial] 74 Respiratory Rate 16 19 Blood Pressure 154/69 H 129/62 Blood Pressure [Right Arm] 154/69 H Blood Pressure Mean Blood Pressure Mean [Right Arm] 97 Blood Pressure Source Blood Pressure Source [Right Arm] Automatic Cuff Blood Pressure Position Blood Pressure Position [Right Arm] Sitting 02 Sat by Pulse Oximetry 93 L 98 97 Oxygen Delivery Method Room Air Room Air Room Air 08/06/24 12:31 08/06/24 12:45 08/06/24 13:00 Temperature Temperature Source Pulse Rate 72 73 88 Pulse Rate [Right Brachial] Respiratory Rate 15 17 24 Blood Pressure 123/59 L 132/58 L 107/58 L Blood Pressure [Right Arm] Blood Pressure Mean Blood Pressure Mean [Right Arm] Blood Pressure Source Blood Pressure Source [Right Arm] Blood Pressure Position Blood Pressure Position [Right Arm] 02 Sat by Pulse Oximetry 96 100 100 Oxygen Delivery Method Room Air Room Air Room Air 08/06/24 13:15 08/06/24 13:30 08/06/24 13:45 Temperature Temperature Source Pulse Rate 83 94 H 84 Pulse Rate [Right Brachial] Respiratory Rate 20 21 17 Blood Pressure 105/50 L 130/62 121/53 L Blood Pressure [Right Arm] Blood Pressure Mean Blood Pressure Mean [Right Arm] Blood Pressure Source Blood Pressure Source [Right Arm] Blood Pressure Position Blood Pressure Position [Right Arm] 02 Sat by Pulse Oximetry 95 96 94 L Oxygen Delivery Method Room Air Room Air Room Air 08/06/24 14:00 08/06/24 14:30 08/06/24 14:45 Temperature Temperature Source Pulse Rate 89 89 91 H Pulse Rate [Right Brachial] Respiratory Rate 19 19 17 Blood Pressure 133/65 150/68 H 134/64 Blood Pressure [Right Arm] Blood Pressure Mean 76 95 94 Blood Pressure Mean [Right Arm] Blood Pressure Source Blood Pressure Source [Right Arm] Blood Pressure Position Blood Pressure Position [Right Arm] 02 Sat by Pulse Oximetry 95 96 95 Oxygen Delivery Method Room Air Room Air Room Air 08/06/24 15:00 08/06/24 15:15 08/06/24 15:30 Temperature Temperature Source Pulse Rate 92 H 92 H 60 Pulse Rate [Right Brachial] Respiratory Rate 21 18 17 Blood Pressure 137/68 143/64 H 141/73 H Blood Pressure [Right Arm] Blood Pressure Mean Blood Pressure Mean [Right Arm] Blood Pressure Source Blood Pressure Source [Right Arm] Blood Pressure Position Blood Pressure Position [Right Arm] 02 Sat by Pulse Oximetry 94 L 96 98 Oxygen Delivery Method Room Air Room Air Room Air 08/06/24 15:38 Temperature 98.0 F Temperature Source Oral Pulse Rate 84 Pulse Rate [Right Brachial] Respiratory Rate 18 Blood Pressure 141/73 H Blood Pressure [Right Arm] Blood Pressure Mean Blood Pressure Mean [Right Arm] Blood Pressure Source Automatic Cuff Blood Pressure Source [Right Arm] Blood Pressure Position Supine Blood Pressure Position [Right Arm] 02 Sat by Pulse Oximetry Oxygen Delivery Method Room Air Lab Data Lab results reviewed: Yes I reviewed the patient's lab results. Lab Results 08/06/24 12:10: WBC 6.9, RBC 3.55 L, Hgb 11.8 L, Hct 35.3 L, MCV 99.6 H, MCH 33.2 H, MCHC 33.3, RDW 14.2, Plt Count 197, MPV 8.7, Neut % (Auto) 78.3, Lymph % (Auto) 13.2, Centre % (Auto) 7.8, Eos % (Auto) 0.2, Baso % (Auto) 0.6, Neut # (Auto) 5.4, Lymph # (Auto) 0.9, Centre # (Auto) 0.5, Eos # (Auto) 0.0, Baso # (Auto) 0.0, PT 10.4, INR 0.92, Sodium 137, Potassium 3.7, Chloride 105, Carbon Dioxide 29, Anion Gap 6.7, BUN 30 H, Creatinine 1.40 H, Estimated Creat Clear 53, Estimated GFR 49 L, Est GFR ( Amer) 60, Glucose 120 H, Calcium 9.1, Magnesium 1.6, Total Bilirubin 2.6 H, AST 59, ALT 18, Alkaline Phosphatase 364 H , Troponin I < 0.01, NT-Pro-B Natriuret Pep 1090 H, Total Protein 6.6, Albumin 4.1, Globulin 2.5, Albumin/Globulin Ratio 1.6, Procalcitonin 0.466, Hepatitis C Antibody Non reactive, HIV 1&2 Antibody Rapid Nonreactive 08/06/24 12:19: Chlamy pneumoniae PCR Not detected, Adenovirus (PCR) Not detected, B. pertussis DNA (PCR) Not detected, Coronavirus OC43 (PCR) Not detected, Coronavirus HKU1 (PCR) Not detected, Coronavirus 229E (PCR) Not detected, SARS-CoV-2 (PCR) Not detected, Coronavirus NL63 (PCR) Not detected, Human Metapneumovir PCR Not detected, Influenza A (H1) PCR Not detected, Influ A (H1N1/09) PCR Not detected, Influenza A (H3) PCR Not detected, Influenza Type A (PCR) Not detected, Influenza Type B (PCR) Not detected, M. pneumoniae (PCR) Not detected, Parainfluenza 1 (PCR) Not detected, Parainfluenza 2 (PCR) Not detected, Parainfluenza 3 (PCR) Not detected, Parainfluenza 4 (PCR) Not detected, RSV (PCR) Not detected, Entero/Rhino (PCR) Not detected 08/06/24 13:10: Urine Color Dark yellow, Urine Appearance Slightly cloudy, Urine pH 5.5, Ur Specific Campbell 1.015, Urine Protein Negative, Urine Glucose (UA) Negative, Urine Ketones Trace, Urine Blood Negative, Urine Nitrate Negative, U rine Bilirubin 1+ A, Urine Urobilinogen 0.2, Ur Leukocyte Esterase Trace, Urine RBC None, Urine WBC Occasional, Ur Squamous Epith Cells Occasional, Urine Bacteria Trace, Hyaline Casts Occ 08/06/24 12:10 08/06/24 12:10 Orders (Tests/Meds): ED MEDICATIONS Discontinued Medications Generic Name Dose Route Start Last Admin Trade Name Freq PRN Reason Stop Dose Admin Acetaminophen 1,000 mg 08/06/24 12:13 08/06/24 12:32 Acetaminophen 500mg Tab PO 08/06/24 12:14 1,000 mg ONCE ONE Administration Albuterol/Ipratropium 3 ml 08/06/24 12:13 08/06/24 12:32 Ipratropium/Albuterol 3 Ml [facility] 08/06/24 12:14 3 ml ONCE ONE Administration Dexamethasone Sodium Phosphate 10 mg 08/06/24 12:13 08/06/24 12:32 Dexamethasone 4mg/Ml 5ml Mdv IV 08/06/24 12:14 10 mg ONCE ONE Administration Sodium Chloride 1,000 mls @ 999 mls/hr 08/06/24 12:13 08/06/24 12:32 Sod Chlor 0.9% 1000ml Bag IV 08/06/24 13:13 999 mls/hr .Q1H1M ONE Administration Ondansetron HCl 4 mg 08/06/24 12:13 08/06/24 12:32 Ondansetron 4mg/2ml Vial IV 08/06/24 12:14 4 mg ONCE ONE Administration Sodium Chloride 3 ml 08/06/24 12:13 Sodium Chloride 3% 15ml Neb 09/05/24 12:12 ONCE PRN INDUCE SPUTUM COLLECTION ORDERS Category Date Time Status Chest XR -- portable [XR chest portable] Stat Exams 08/06/24 12:13 Completed BNP [NT Pro Brain Natriuretic Pep.] Stat Lab 08/06/24 12:10 Completed CBC w/Auto Diff [Complete Blood Count Auto Diff] Stat Lab 08/06/24 12:10 Completed CMP [Comprehensive Metabolic Panel] Stat Lab 08/06/24 12:10 Completed Full Resp Panel w/COVID ([facility]) Routine Lab 08/06/24 12:19 Completed HIV (1&2) Antibody Rapid Stat Lab 08/06/24 12:10 Completed Hep C Ab with Reflex to RNA Stat Lab 08/06/24 12:10 Completed INR [Prothrombin Time INR] Stat Lab 08/06/24 12:10 Completed Magnesium Stat Lab 08/06/24 12:10 Completed Procalcitonin Stat Lab 08/06/24 12:10 Completed Trop I [Troponin I] Stat Lab 08/06/24 12:10 Completed UA [Urinalysis and Microscopic] Stat Lab 08/06/24 13:10 Completed Urine Culture Routine Micro 08/06/24 13:10 Completed Medical Decision Narrative: In summary patient is a 74-year-old male who presents to the emergency department for evaluation of nonproductive cough, asthenia, anorexia. Patient is hemodynamically stable upon arrival, afebrile. Physical exam is remarkable for a well-nourished well-developed but unwell appearing 74-year-old gentleman who otherwise is in no acute distress, breath sounds are clear and equal bilaterally to the bases but patient does have a very weak cough, dry oral mucosa, but a soft abdomen with no rebound or guarding or rigidity with normal bowel sounds.. Differential diagnosis includes viral versus bacterial infection, acute on chronic kidney injury, failure to thrive etc. Initial workup will be conducted with hematologic labs urinalysis plain film chest x-ray. Initial interventions include crystalloid bolus Tylenol DuoNeb Decadron. Initial workup reviewed by me and his white count 6.9 with no neutrophilic shift INR 0.92 chemistry shows no electrolyte derangements and his BUN is 30 creatinine is 1.4 and GFR is 49 numbers that have been the best in the last several months, glucoses 120, calcium 7.1, mag is 1.6, troponin is undetectable total bilirubin is 2.6 but normal AST ALT alk phos is elevated at 3.64 troponin is less than 0.01 NT proBNP is 1090 Calcitonin is detectable but normal at 0.466, urinalysis is negative for blood nitrates and there is trace positive leukocytes and microscopic exam shows no red blood cells occasional white cells occasional epithelial cells trace bacteria and his full respiratory panel is negative for all organisms tested and my informal interpretation of his plain film chest x- ray shows no acute processes.. Upon repeat evaluation patient was able to ambulate without assistance to the bathroom. I did have interactive discussion with the patient about his findings and MENDO[place] and we discussed whether or not he wished or felt like he needed cute nursing facility or permanent placement and patient declined both and states that he did not think so. He felt comfortable going home. Given this we have essentially ruled out any acute or life- threatening problem and patient will be referred to cardiology given his elevated NT proBNP but no oxygen requirement or pulmonary edema or effusion seen on chest x-ray for reevaluation. <Gurvinder Simmons MD - Last Filed: 08/09/24 07:23> Vital Signs: 08/06/24 12:03 08/06/24 12:07 08/06/24 12:15 Temperature 98.0 F Temperature Source Temporal Artery Scan Pulse Rate 79 Pulse Rate [Right Brachial] 74 Respiratory Rate 16 19 Blood Pressure 154/69 H 129/62 Blood Pressure [Right Arm] 154/69 H Blood Pressure Mean Blood Pressure Mean [Right Arm] 97 Blood Pressure Source Blood Pressure Source [Right Arm] Automatic Cuff Blood Pressure Position Blood Pressure Position [Right Arm] Sitting 02 Sat by Pulse Oximetry 93 L 98 97 Oxygen Delivery Method Room Air Room Air Room Air 08/06/24 12:31 08/06/24 12:45 08/06/24 13:00 Temperature Temperature Source Pulse Rate 72 73 88 Pulse Rate [Right Brachial] Respiratory Rate 15 17 24 Blood Pressure 123/59 L 132/58 L 107/58 L Blood Pressure [Right Arm] Blood Pressure Mean Blood Pressure Mean [Right Arm] Blood Pressure Source Blood Pressure Source [Right Arm] Blood Pressure Position Blood Pressure Position [Right Arm] 02 Sat by Pulse Oximetry 96 100 100 Oxygen Delivery Method Room Air Room Air Room Air 08/06/24 13:15 08/06/24 13:30 08/06/24 13:45 Temperature Temperature Source Pulse Rate 83 94 H 84 Pulse Rate [Right Brachial] Respiratory Rate 20 21 17 Blood Pressure 105/50 L 130/62 121/53 L Blood Pressure [Right Arm] Blood Pressure Mean Blood Pressure Mean [Right Arm] Blood Pressure Source Blood Pressure Source [Right Arm] Blood Pressure Position Blood Pressure Position [Right Arm] 02 Sat by Pulse Oximetry 95 96 94 L Oxygen Delivery Method Room Air Room Air Room Air 08/06/24 14:00 08/06/24 14:30 08/06/24 14:45 Temperature Temperature Source Pulse Rate 89 89 91 H Pulse Rate [Right Brachial] Respiratory Rate 19 19 17 Blood Pressure 133/65 150/68 H 134/64 Blood Pressure [Right Arm] Blood Pressure Mean 76 95 94 Blood Pressure Mean [Right Arm] Blood Pressure Source Blood Pressure Source [Right Arm] Blood Pressure Position Blood Pressure Position [Right Arm] 02 Sat by Pulse Oximetry 95 96 95 Oxygen Delivery Method Room Air Room Air Room Air 08/06/24 15:00 08/06/24 15:15 08/06/24 15:30 Temperature Temperature Source Pulse Rate 92 H 92 H 60 Pulse Rate [Right Brachial] Respiratory Rate 21 18 17 Blood Pressure 137/68 143/64 H 141/73 H Blood Pressure [Right Arm] Blood Pressure Mean Blood Pressure Mean [Right Arm] Blood Pressure Source Blood Pressure Source [Right Arm] Blood Pressure Position Blood Pressure Position [Right Arm] 02 Sat by Pulse Oximetry 94 L 96 98 Oxygen Delivery Method Room Air Room Air Room Air 08/06/24 15:38 Temperature 98.0 F Temperature Source Oral Pulse Rate 84 Pulse Rate [Right Brachial] Respiratory Rate 18 Blood Pressure 141/73 H Blood Pressure [Right Arm] Blood Pressure Mean Blood Pressure Mean [Right Arm] Blood Pressure Source Automatic Cuff Blood Pressure Source [Right Arm] Blood Pressure Position Supine Blood Pressure Position [Right Arm] 02 Sat by Pulse Oximetry Oxygen Delivery Method Room Air Lab Data Lab Results 08/06/24 12:10: WBC 6.9, RBC 3.55 L, Hgb 11.8 L, Hct 35.3 L, MCV 99.6 H, MCH 33.2 H, MCHC 33.3, RDW 14.2, Plt Count 197, MPV 8.7, Neut % (Auto) 78.3, Lymph % (Auto) 13.2, Centre % (Auto) 7.8, Eos % (Auto) 0.2, Baso % (Auto) 0.6, Neut # (Auto) 5.4, Lymph # (Auto) 0.9, Centre # (Auto) 0.5, Eos # (Auto) 0.0, Baso # (Auto) 0.0, PT 10.4, INR 0.92, Sodium 137, Potassium 3.7, Chloride 105, Carbon Dioxide 29, Anion Gap 6.7, BUN 30 H, Creatinine 1.40 H, Estimated Creat Clear 53, Estimated GFR 49 L, Est GFR ( Amer) 60, Glucose 120 H, Calcium 9.1, Magnesium 1.6, Total Bilirubin 2.6 H, AST 59, ALT 18, Alkaline Phosphatase 364 H , Troponin I < 0.01, NT-Pro-B Natriuret Pep 1090 H, Total Protein 6.6, Albumin 4.1, Globulin 2.5, Albumin/Globulin Ratio 1.6, Procalcitonin 0.466, Hepatitis C Antibody Non reactive, HIV 1&2 Antibody Rapid Nonreactive 08/06/24 12:19: Chlamy pneumoniae PCR Not detected, Adenovirus (PCR) Not detected, B. pertussis DNA (PCR) Not detected, Coronavirus OC43 (PCR) Not detected, Coronavirus HKU1 (PCR) Not detected, Coronavirus 229E (PCR) Not detected, SARS-CoV-2 (PCR) Not detected, Coronavirus NL63 (PCR) Not detected, Human Metapneumovir PCR Not detected, Influenza A (H1) PCR Not detected, Influ A (H1N1/09) PCR Not detected, Influenza A (H3) PCR Not detected, Influenza Type A (PCR) Not detected, Influenza Type B (PCR) Not detected, M. pneumoniae (PCR) Not detected, Parainfluenza 1 (PCR) Not detected, Parainfluenza 2 (PCR) Not detected, Parainfluenza 3 (PCR) Not detected, Parainfluenza 4 (PCR) Not detected, RSV (PCR) Not detected, Entero/Rhino (PCR) Not detected 08/06/24 13:10: Urine Color Dark yellow, Urine Appearance Slightly cloudy, Urine pH 5.5, Ur Specific Campbell 1.015, Urine Protein Negative, Urine Glucose (UA) Negative, Urine Ketones Trace, Urine Blood Negative, Urine Nitrate Negative, U rine Bilirubin 1+ A, Urine Urobilinogen 0.2, Ur Leukocyte Esterase Trace, Urine RBC None, Urine WBC Occasional, Ur Squamous Epith Cells Occasional, Urine Bacteria Trace, Hyaline Casts Occ Orders (Tests/Meds): ED MEDICATIONS Discontinued Medications Generic Name Dose Route Start Last Admin Trade Name Freq PRN Reason Stop Dose Admin Acetaminophen 1,000 mg 08/06/24 12:13 08/06/24 12:32 Acetaminophen 500mg Tab PO 08/06/24 12:14 1,000 mg ONCE ONE Administration Albuterol/Ipratropium 3 ml 08/06/24 12:13 08/06/24 12:32 Ipratropium/Albuterol 3 Ml Neb [facility] 08/06/24 12:14 3 ml ONCE ONE Administration Dexamethasone Sodium Phosphate 10 mg 08/06/24 12:13 08/06/24 12:32 Dexamethasone 4mg/Ml 5ml Mdv IV 08/06/24 12:14 10 mg ONCE ONE Administration Sodium Chloride 1,000 mls @ 999 mls/hr 08/06/24 12:13 08/06/24 12:32 Sod Chlor 0.9% 1000ml Bag IV 08/06/24 13:13 999 mls/hr .Q1H1M ONE Administration Ondansetron HCl 4 mg 08/06/24 12:13 08/06/24 12:32 Ondansetron 4mg/2ml Vial IV 08/06/24 12:14 4 mg ONCE ONE Administration Sodium Chloride 3 ml 08/06/24 12:13 Sodium Chloride 3% 15ml Neb [facility] 09/05/24 12:12 ONCE PRN INDUCE SPUTUM COLLECTION ORDERS Category Date Time Status Chest XR -- portable [XR chest portable] Stat Exams 08/06/24 12:13 Completed BNP [NT Pro Brain Natriuretic Pep.] Stat Lab 08/06/24 12:10 Completed CBC w/Auto Diff [Complete Blood Count Auto Diff] Stat Lab 08/06/24 12:10 Completed CMP [Comprehensive Metabolic Panel] Stat Lab 08/06/24 12:10 Completed Full Resp Panel w/COVID ([facility]) Routine Lab 08/06/24 12:19 Completed HIV (1&2) Antibody Rapid Stat Lab 08/06/24 12:10 Completed Hep C Ab with Reflex to RNA Stat Lab 08/06/24 12:10 Completed INR [Prothrombin Time INR] Stat Lab 08/06/24 12:10 Completed Magnesium Stat Lab 08/06/24 12:10 Completed Procalcitonin Stat Lab 08/06/24 12:10 Completed Trop I [Troponin I] Stat Lab 08/06/24 12:10 Completed UA [Urinalysis and Microscopic] Stat Lab 08/06/24 13:10 Completed Urine Culture Routine Micro 08/06/24 13:10 Completed Medical Decision Narrative: In summary patient is a 74-year-old male who presents to the emergency department for evaluation of nonproductive cough, asthenia, anorexia. Patient is hemodynamically stable upon arrival, afebrile. Physical exam is remarkable for a well-nourished well-developed but unwell appearing 74-year-old gentleman who otherwise is in no acute distress, breath sounds are clear and equal bilaterally to the bases but patient does have a very weak cough, dry oral mucosa, but a soft abdomen with no rebound or guarding or rigidity with normal bowel sounds.. Differential diagnosis includes viral versus bacterial infection, acute on chronic kidney injury, failure to thrive etc. Initial workup will be conducted with hematologic labs urinalysis plain film chest x-ray. Initial interventions include crystalloid bolus Tylenol DuoNeb Decadron. Initial workup reviewed by me and his white count 6.9 with no neutrophilic shift INR 0.92 chemistry shows no electrolyte derangements and his BUN is 30 creatinine is 1.4 and GFR is 49 numbers that have been the best in the last several months, glucoses 120, calcium 7.1, mag is 1.6, troponin is undetectable total bilirubin is 2.6 but normal AST ALT alk phos is elevated at 3.64 troponin is less than 0.01 NT proBNP is 1090 Calcitonin is detectable but normal at 0.466, urinalysis is negative for blood nitrates and there is trace positive leukocytes and microscopic exam shows no red blood cells occasional white cells occasional epithelial cells trace bacteria and his full respiratory panel is negative for all organisms tested and my informal interpretation of his plain film chest x- ray shows no acute processes.. Upon repeat evaluation patient was able to ambulate without assistance to the bathroom. I did have interactive discussion with the patient about his findings and MENDOZA and we discussed whether or not he wished or felt like he needed cute nursing facility or permanent placement and patient declined both and states that he did not think so. He felt comfortable going home. Given this we have essentially ruled out any acute or life- threatening problem and patient will be referred to cardiology given his elevated NT proBNP but no oxygen requirement or pulmonary edema or effusion seen on chest x-ray for reevaluation. I was consulted by the KIMMIE, and we discussed the complexity of the problems being addressed. I approved the treatment and management plan for this patient's care in the Emergency Department, thus performing a substantive portion of the medical decision making. Gurvinder Simmons MD Critical Care <GUMARO Montes - Last Filed: 08/06/24 15:41> Critical Care Time Critical Care Time: No
--- NOTE | 2024-08-06 12:13 | XR_ITS ---
PROCEDURE INFORMATION: Exam: XR Chest Exam date and time: 08/06/2024 12:16 PM Age: 74 years old Clinical indication: Cough and other: Weakness; Additional info: Cough weakness TECHNIQUE: Imaging protocol: Radiologic exam of the chest. Views: 1 view. COMPARISON: CR XR CHEST 2V 06/17/2024 3:20 PM FINDINGS: Airway: Patent Lungs: Lung hyperlucency, favoring emphysema. No consolidation. Pleural spaces: Unremarkable. No pleural effusion. No pneumothorax. Heart/Mediastinum: Moderate cardiomegaly. Vasculature: Calcified aortic knob. Bones/joints: No acute skeletal abnormality or aggressive osseous lesion. IMPRESSION: No acute findings.
[2024-08-06 12:22] LABS: Adenovirus,PCR Not Detected (NotDetected); Bordetella Pertussis Not Detected (NotDetected); Chlamydophila Pneumoniae, PCR Not Detected (NotDetected); Coronavirus 19, PCR Not Detected (NotDetected); Coronavirus 229E Not Detected (NotDetected); Coronavirus NL63 Not Detected (NotDetected); Coronavirus OC43 Not Detected (NotDetected); Coronovirus HKU1,PCR Not Detected (NotDetected); Human Metapneumovirus Not Detected (NotDetected); Influenza A, PCR Not Detected (NotDetected); Influenza AH1, 2009 Not Detected (NotDetected); Influenza AH1, PCR Not Detected (NotDetected); Influenza AH3,PCR Not Detected (NotDetected); Influenza B, PCR Not Detected (NotDetected); Mycoplasma Pneumoniae, PCR Not Detected (NotDetected); Parainfluenza 1, PCR Not Detected (NotDetected); Parainfluenza 2, PCR Not Detected (NotDetected); Parainfluenza 3, PCR Not Detected (NotDetected); Parainfluenza 4, PCR Not Detected (NotDetected); Respiratory Syncytial Virus Not Detected (NotDetected); Rhinovirus/Enterovirus Not Detected (NotDetected)
[2024-08-06 12:26] LABS: Albumin Level 4.1 g/dl (3.5-5.0); Chloride 105 mmol/L (98-107); Potassium 3.7 mmoL/L (3.5-5.1); Sodium 137 mmol/L (136-145)
[2024-08-06 12:27] LABS: Basophils % 0.6 % (0.1-2.0); Eosinophils % 0.2 % (0.1-12.0); Hematocrit 35.3 % (42.0-52.0); Hemoglobin 11.8 g/dL (14.1-18.0); Lymphocytes # 0.9 K/mm3 (0.7-4.5); Lymphocytes % 13.2 % (10-50); Mean Corpuscular HGB Conc 33.3 g/dL (31.8-35.4); Mean Corpuscular Hemoglobin 33.2 pg (27.0-31.2); Mean Corpuscular Volume 99.6 fl (80-94); Mean Platelet Volume 8.7 fl (7.4-10.4); Monocytes # 0.5 K/mm3 (0.1-1.0); Monocytes % 7.8 % (1.7-9.3); Neutrophils # 5.4 K/mm3 (1.8-7.8); Neutrophils % 78.3 % (37.0-80.0); Platelet Count 197 K/mm3 (142-424); Red Blood Count 3.55 M/mm3 (4.60-6.20); Red Cell Distribution Width 14.2 % (11.5-17.5); White Blood Count 6.9 K/mm3 (4.8-10.8)
[2024-08-06 12:29] LABS: Alanine Aminotransferase 18 U/L (12-78); Albumin/Globulin Ratio 1.6 (1.1-1.8); Alkaline Phosphatase 364 U/L (38-126); Anion Gap 6.7 mEq/L (5-15); Aspartate Amino Transferase 59 U/L (17-59); Bilirubin,Total 2.6 mg/dl (0.2-1.3); Blood Urea Nitrogen 30 mg/dl (9-20); Calcium 9.1 mg/dl (8.4-10.2); Carbon Dioxide 29 mmol/L (22.0-30.0); Creatinine Clearance Estimated 53 mL/min (50-200); Estimated Glomerular Filt Rate 49 ml/min (>60); GFR (African American) 60 ML/MIN (>60); Globulin 2.5 g/dL (1.3-3.2); Glucose 120 mg/dl (74-100); Total Protein,Serum 6.6 g/dl (6.3-8.2)
[2024-08-06 12:30] LABS: Magnesium 1.6 mg/dl (1.6-2.3)
[2024-08-06 12:32] LABS: INR 0.92 (0.9-1.1); Prothrombin Time 10.4 seconds (10.1-12.5)
[2024-08-06] MEDS: IPRATROPIUM/ALBUTEROL 3 ML NEB IH (12:32)
[2024-08-06] MEDS: 0.9 % SODIUM CHLORIDE 1000ML 1,000 ML 999 ML IV (12:32)
[2024-08-06] MEDS: DEXAMETHASONE 4MG/ML 5ML MDV 10 MG IV (12:32)
[2024-08-06] MEDS: ONDANSETRON 4MG/2ML VIAL 4 MG IV (12:32)
[2024-08-06] MEDS: ACETAMINOPHEN 500MG TAB 1000 MG PO (12:32)
[2024-08-06 12:38] LABS: NT Pro Brain Natriuretic Pep. 1090 pg/mL (0-450)
[2024-08-06 13:14] LABS: Microscopic, Urine URINE MICROSCOPIC (MICROSCOPIC)
[2024-08-06 13:21] LABS: Blood, Urine Negative (Negative); Glucose,Urine (UA) Negative (Negative); Ketones,Urine TRACE (Negative); Leukocyte Esterase,Urine TRACE (Negative); Nitrate,Urine Negative (Negative); PH,Urine 5.5 (5.0-8.5); Protein,Urine Negative (Negative); Specific Gravity, Urine 1.015 (1.005-1.030); Urobilinogen,Urine 0.2 EU/dl (0.2)
[2024-08-06 13:30] LABS: Procalcitonin 0.466 ng/mL (0.0-2.0)
[2024-08-06 13:31] LABS: Appearance,Urine Slightly Cloudy (Clear); Bilirubin,Urine 1+ (Negative); Color,Urine Dark Yellow (Yellow)
[2024-08-06 13:46] LABS: Bacteria,Urine Trace /lpf; Hyaline Casts,Urine OCC #/lpf (0); Squamous Epithelial Cell,Urine Occasional #/hpf (0-5); WBC,Urine Occasional #/hpf (0-3)
--- NOTE | 2024-08-06 14:12 | ECG_ITS ---
APPROVED REPORT Exam: Resting ECG HR:84 bpm ECG Measurements Heart Rate 84 AXES OH 210 P 65 QRSd 119 QRS -34 QT 375 T 62 QTc 416 Conclusion SINUS RHYTHM WITH FIRST DEGREE AV BLOCK LEFT AXIS DEVIATION [QRS AXIS < -30] MODERATE INTRAVENTRICULAR CONDUCTION DELAY [105+ ms QRS DURATION, 80+ ms Q/S IN V1/V2, NO Q AND 60+ ms R IN I/aVL/V5/V6] Electronically signed by : JEFF LE, 08/06/2024 15:29:01
--- NOTE | 2024-08-06 14:32 | PC.NURSE ---
male purwick placed at this time
[2024-08-06 14:44] LABS: Troponin I < 0.01 ng/ml (0.00-0.034)
[2024-08-06 14:48] LABS: HIV (1&2) Antibody Rapid NONREACTIVE (NONREACTIVE)
[2024-08-08 03:36] LABS: HCV Ab Non Reactive (Non Reactive)
== END 2024-08-06 15:50 | disposition home or self-care (01) ==
PROVIDERS: Physician Assistant; Emergency Provider Emergency Medicine; PCP Internal Medicine
DX: R53.1 Weakness (principal); R05.2 Subacute cough; R05.9 Cough, unspecified; R63.8 Other symptoms and signs concerning food and fluid intake
CPT/HCPCS: 71045; 80053; 81001; 83735; 83880; 84145; 84484; 85025; 85610; 86803; 87086; 87389; 87633; 93005; 96361; 96374; 96375; 99284; J1100; J2405; J7030; J7620

== ENCOUNTER 2024-08-24 01:26 | Inpatient (IN) | payer MEDICARE, OTHER, SELFPAY ==
[2024-08-24] VITALS (43 sets, daily range): BP systolic 78–134; BP diastolic 35–71; PULSE 69–124; RESP 15–39; TEMP 36.3–37.1; O2SAT 87–100; BMI 26.6; BMI 24.8
--- NOTE | 2024-08-24 01:08 | ECG_ITS ---
APPROVED REPORT Exam: Resting ECG HR:132 bpm ECG Measurements Heart Rate 132 AXES MO 166 P 77 QRSd 109 QRS -48 QT 290 T 107 QTc 368 Conclusion SINUS TACHYCARDIA LEFT ANTERIOR FASCICULAR BLOCK [QRS AXIS <= -45, QR IN I, RS IN II] baseline artifact limits interpretation UNCONFIRMED REPORT Electronically signed by : PILAR MCGINNIS, 08/24/2024 23:23:51
--- NOTE | 2024-08-24 01:44 | XR_ITS ---
PROCEDURE INFORMATION: Exam: XR Chest Exam date and time: 08/24/2024 2:23 AM Age: 74 years old Clinical indication: Sternal or substernal pain; Additional info: Cp TECHNIQUE: Imaging protocol: Radiologic exam of the chest. Views: 1 view. COMPARISON: CR XR CHEST PORTABLE 08/06/2024 12:16 PM FINDINGS: Lungs: Unremarkable. No consolidation. Pleural spaces: Unremarkable. No pleural effusion. No pneumothorax. Heart/Mediastinum: Unremarkable. No cardiomegaly. Bones/joints: Unremarkable. IMPRESSION: No acute findings.
--- NOTE | 2024-08-24 01:44 | [facility].EDCP ---
Discharge Plan Disposition Patient Disposition: Admitted Chief Complaint: PAIN Prescriptions Prescriptions: No Action docusate sodium 50 mg capsule 100 mg PO DAILY carbidopa-levodopa 50-200 mg tablet extended release 1 tab PO QID Qty: 120 4RF Rx Instructions: divide evenly over waking hours entacapone 200 mg tablet 200 mg PO QID Qty: 120 6RF Rx Instructions: administer at the same time as l-dopa/carbidopa dose mecobalamin (vitamin B12) 1,000 mcg lozenge 1,000 mcg PO DAILY Rx Instructions: allow to dissolve in mouth OR may chew lightly before swallowing furosemide 20 mg tablet 20 mg PO DAILY PRN (Reason: edema) Qty: 60 2RF simvastatin 20 mg tablet 20 mg PO HS 90 Days Qty: 90 4RF allopurinol 100 mg tablet See Rx Instructions .ROUTE .COMPLEX Qty: 90 2RF Dose Instruction: TAKE ONE TABLET BY MOUTH EVERY DAY Rx Instructions: TAKE ONE TABLET BY MOUTH EVERY DAY aspirin [Adult Low Dose Aspirin] 81 mg tablet,delayed release (DR/EC) 81 mg PO DAILY gabapentin 600 mg tablet See Rx Instructions .ROUTE .COMPLEX Qty: 90 3RF Dose Instruction: TAKE ONE TABLET BY MOUTH THREE TIMES DAILY MAY CAUSE DROWSINESS Rx Instructions: TAKE ONE TABLET BY MOUTH THREE TIMES DAILY MAY CAUSE DROWSINESS hydrocodone-acetaminophen 10-325 mg tablet 1 tab PO Q4-6H PRN (Reason: pain) 30 Days Qty: 120 0RF pantoprazole 40 mg tablet,delayed release (DR/EC) 40 mg PO BID Patient Comments: TAKE ONE TABLET BY MOUTH TWICE DAILY [id number] [Bromfed DM] 2-30-10 mg/5 mL syrup 5 ml PO Q4H PRN (Reason: sinus symptoms) Qty: 118 0RF Clinical Impressions Clinical Impression: Transaminitis, Abdominal pain, Hyperbilirubinemia, Common bile duct dilation Print Language Print Language: [place] Discharge ED Provider: Marianne Whitt HPI General Chief Complaint: PAIN Stated Complaint: chest pain Time Seen by Provider: 08/24/24 01:30 History of Present Illness HPI narrative: 74-year-old male with history of Parkinson's, thyroid mass, abnormal transaminase, hypertension presents to the ER with complaints of upper abdominal pain, nausea, squeezing pain radiating into the chest. Patient does not have a known cardiac history. He reports pain started approximately 5 hours prior to arrival. He has had nausea but no vomiting, no associated diarrhea. He is also having abdominal pain. Denies shortness of breath, no fevers, chills, difficulty breathing, dizziness, headache, or other associated symptoms. states she administered Phenergan to the patient earlier without significant improvement of symptoms. Patient does not believe it is related to his heart but wanted to be evaluated. Patient has had appendectomy, cholecystectomy, removal of renal cell carcinoma, multiple abdominal surgeries. Related Data Home Medications ?Medication ?Instructions ?Recorded ?Confirmed docusate sodium 50 mg capsule 100 mg PO DAILY 12/18/23 08/03/24 pantoprazole 40 mg tablet,delayed 40 mg PO BID 06/18/24 08/03/24 release aspirin 81 mg tablet,delayed 81 mg PO DAILY 07/08/24 08/03/24 release (Adult Low Dose Aspirin) mecobalamin (vitamin B12) 1,000 1,000 mcg PO DAILY 07/08/24 08/03/24 mcg lozenges Previous Rx's ?Medication ?Instructions ?Recorded simvastatin 20 mg tablet 20 mg PO HS 90 days #90 tabs 12/25/23 allopurinol 100 mg tablet See Rx Instructions .Route 04/30/24 .COMPLEX #90 tabs carbidopa ER 50 mg-levodopa 200 mg 1 tab PO QID #120 tabs 06/24/24 tablet,extended release entacapone 200 mg tablet 200 mg PO QID Parkinsons #120 tabs 06/24/24 furosemide 20 mg tablet 20 mg PO DAILY PRN edema #60 tabs 07/02/24 gabapentin 600 mg tablet See Rx Instructions .Route 07/20/24 .COMPLEX #90 tabs vfyksbqlhmqnjkf-fmutkgngxqoouov-HT 5 ml PO Q4H PRN sinus symptoms 08/06/24 2 mg-30 mg-10 mg/5 mL oral syrup #118 mL (Bromfed DM) hydrocodone 10 mg-acetaminophen 1 tab PO Q4-6H PRN pain 30 days 08/10/24 325 mg tablet #120 tabs Allergies Allergy/AdvReac Type Severity Reaction Status Date / Time mupirocin Allergy Verified 08/12/24 08:02 [facility] Disclaimer: The information contained in this section may have been updated after the patient was seen, as this information can be updated by other users. Medical History Thyroid nodule Enlarged thyroid Deviated septum Thyroid mass Healthcare maintenance Acute ischemic stroke History of TIA (transient ischemic attack) DM type 2 (diabetes mellitus, type 2) COPD (chronic obstructive pulmonary disease) GERD (gastroesophageal reflux disease) Single kidney Heart failure TIA (transient ischemic attack) Daytime somnolence Parkinson disease Symptomatic improvement with carbidopa/levodopa and entacapone Surgical History History of cholecystectomy Hx of appendectomy H/O left nephrectomy Family History Other No significant family history Social History Smoking Status: Unknown if ever smoked second hand exposure: Yes alcohol intake: current alcohol intake frequency: a few times a month substance use type: denies use current occupational status: retired Travel in the last 8 weeks: None household members: spouse housing: house marital status: current occupational exposures/hazards: No caffeine: No Have you lived/traveled outside [place] in past 30 days?: No Contact w/someone who lives/traveled outside US past 30 days?: No Exposure to someone with infectious disease in past 14 days?: No Do you have a fever (greater than 100.4 F or 38 C)?: No Have you tested positive for COVID-19: No Exposed to someone with COVID-19 in past 14 days?: No Do you have a sore throat?: No Do you have a cough?: No Do you have any weakness?: No Do you have any diarrhea?: No Are you experiencing any unusual bleeding?: No Do you have any muscle aches/pain?: No Do you have any abdominal pain?: No Are you experiencing loss of taste or smell?: No Other Medical History Have you received the Flu Vaccine for this season: No Have you received the Pneumonia Vaccine: No ROS Obtained: Yes Systems reviewed as appropriate & no additional complaints except as documented Per HPI Physical Exam General General appearance: alert and in no apparent distress Head Head exam: atraumatic and normocephalic Eye Eye exam: Present PERRL, EOMI and scleral icterus ENT ENT exam: Present mucous membranes moist Neck Neck exam: Present normal inspection and full ROM Chest Chest inspection: Present symmetric chest wall rise Respiratory Respiratory exam: Present normal lung sounds bilaterally; Absent respiratory distress, wheezes or stridor Cardiovascular Cardiovascular exam: Present normal rhythm and tachycardia (Mild) Abdominal Exam Abdominal exam: Present soft; Absent distention or tenderness Extremities Exam Extremities exam: Present full ROM Neurological Exam Neurological exam: Present alert and oriented X3; Absent motor sensory deficit Psychiatric Psychiatric exam: Present normal affect and normal mood Skin Skin exam: Present warm and dry HEART Score HEART Score HEART Score assessment performed?: Yes History (anamnesis): Slightly suspicious ECG: Non-specific disturbance Age: >65 years Risk factors: 1-2 risk factors Troponin: </= normal limit HEART Score: 4 Critical Care Critical Care Time Critical Care Time: No Medical Decision Making Medical Records Medical records reviewed: Yes I reviewed the patient's medical records. MR Comment: The last time patient had elevated AST, he was discharged in stable condition and it appeared to have spontaneously resolved. Antoine Inquiry Pt receiving controlled substance: No Vital Signs Vital Signs: 08/24/24 01:26 08/24/24 01:36 08/24/24 01:49 Temperature 98.4 F Temperature Source Oral Pulse Rate 124 H Pulse Rate [Left] 119 H Respiratory Rate 22 39 H 33 H Blood Pressure 87/43 L 127/71 Blood Pressure [Right Arm] 123/61 Blood Pressure Mean [Right Arm] 81 02 Sat by Pulse Oximetry 95 89 L Oxygen Delivery Method Room Air 08/24/24 02:03 08/24/24 03:01 08/24/24 03:30 Temperature Temperature Source Pulse Rate 115 H 113 H Pulse Rate [Left] Respiratory Rate 27 H 30 H Blood Pressure 107/40 L 117/47 L 115/42 L Blood Pressure [Right Arm] Blood Pressure Mean [Right Arm] 02 Sat by Pulse Oximetry 93 L 92 L Oxygen Delivery Method 08/24/24 04:01 08/24/24 04:32 08/24/24 05:00 Temperature Temperature Source Pulse Rate 117 H 115 H 109 H Pulse Rate [Left] Respiratory Rate Blood Pressure 102/49 L 87/40 L 80/35 L Blood Pressure [Right Arm] Blood Pressure Mean [Right Arm] 02 Sat by Pulse Oximetry 94 L 92 L 93 L Oxygen Delivery Method Lab Data Labs: Lab Results 08/24/24 01:31: WBC 6.5, RBC 3.72 L, Hgb 12.1 L, Hct 36.1 L, MCV 97.1 H, MCH 32.6 H, MCHC 33.6, RDW 14.6, Plt Count 156, MPV 8.5, Neut % (Auto) 92.3 H, Lymph % (Auto) 4.5 L, Mcpherson % (Auto) 2.8, Eos % (Auto) 0.1, Baso % (Auto) 0.2, Neut # (Auto) 6.0, Lymph # (Auto) 0.3 L, Mcpherson # (Auto) 0.2, Eos # (Auto) 0.0, Baso # (Auto) 0.0, Total Counted 100, Neutrophils % (Manual) 94 H, Lymphocytes % (Manual) 5 L, Monocytes % (Manual) 1 L, Platelet Estimate Normal, RBC Morphology Normal, PT 10.9, INR 0.97, D-Dimer 1.41 H, Sodium 141, Potassium 4.4, Chloride 106, Carbon Dioxide 32 H, Anion Gap 7.4, BUN 25 H, Creatinine 1.60 H, Estimated Creat Clear 46, Estimated GFR 42 L, Est GFR ( Amer) 51 L, Glucose 208 H, Calcium 9.1, Total Bilirubin 2.6 H, Indirect Bilirubin 0.1, AST 369 H*, ALT 26, Alkaline Phosphatase 553 H, Troponin I < 0.01, NT-Pro-B Natriuret Pep 749 H, Total Protein 6.4, Albumin 4.2, Globulin 2.2, Albumin/Globulin Ratio 1.9 H, Lipase 227 08/24/24 05:06: Troponin I < 0.01 08/24/24 01:31 08/24/24 01:31 Response Orders (Tests/Meds): ED MEDICATIONS Generic Name Dose Route Start Last Admin Trade Name Freq PRN Reason Stop Dose Admin Sodium Chloride 10 ml 08/24/24 02:37 08/24/24 02:38 Sodium Chloride 0.9% 10ml Syr (Rad Only) IV 09/23/24 02:36 10 ml NEEDED PRN Administration Maintain IV Site Sodium Chloride 10 ml 08/24/24 03:26 08/24/24 03:28 Sodium Chloride 0.9% 10ml Syr (Rad Only) IV 09/23/24 03:25 10 ml NEEDED PRN Administration Maintain IV Site Discontinued Medications Generic Name Dose Route Start Last Admin Trade Name Freq PRN Reason Stop Dose Admin Hydrocodone Bitart/Acetaminophen 1 tab 08/24/24 01:50 08/24/24 02:06 Hydrocodone/Apap 5/325 Mg Tablet PO 08/24/24 01:51 1 tab ONCE ONE Administration Al Hydrox/Mg Hydrox/Simethicone 30 ml 08/24/24 01:44 08/24/24 02:04 Aluminum/Magnesium/Simethicone 30ml Udc PO 08/24/24 01:45 30 ml ONCE ONE Administration Aspirin 324 mg 08/24/24 01:44 08/24/24 02:03 Aspirin 81mg Chewable Tablet PO 08/24/24 01:45 324 mg ONCE ONE Administration Lactated Ringer's 500 mls @ 999 mls/hr 08/24/24 01:52 08/24/24 02:09 Lactated Ringer's 500ml IV 08/24/24 02:22 999 mls/hr .Q31M ONE Administration Iopamidol 75 ml 08/24/24 02:37 08/24/24 02:38 Iopamidol-370 (76%);100ml Bottle IV 08/24/24 02:38 75 ml ONCE ONE Administration Iopamidol 70 ml 08/24/24 03:26 08/24/24 03:27 Iopamidol-370 (76%);100ml Bottle IV 08/24/24 03:27 70 ml ONCE ONE Administration Ondansetron HCl 4 mg 08/24/24 01:44 08/24/24 02:04 Ondansetron 4mg/2ml Vial IV 08/24/24 01:45 4 mg ONCE ONE Administration Sodium Chloride 50 ml 08/24/24 03:26 08/24/24 03:27 0.9 % Sodium Chloride 50 Ml Vial IV 08/24/24 03:27 50 ml ONCE ONE Administration ORDERS Category Date Time Status CT abdomen pelvis w con Stat Cat Scan 08/24/24 01:[address] angio chest PE protocol Stat Cat Scan 08/24/24 02:56 Completed XR chest portable Stat Exams 08/24/24 01:44 Completed Bilirubin,Indirect Stat Lab 08/24/24 01:31 Completed Complete Blood Count Auto Diff Stat Lab 08/24/24 01:31 Completed Comprehensive Metabolic Panel Stat Lab 08/24/24 01:31 Completed D-Dimer Stat Lab 08/24/24 01:31 Completed Lipase Stat Lab 08/24/24 01:31 Completed NT Pro Brain Natriuretic Pep. Stat Lab 08/24/24 01:31 Completed Prothrombin Time INR Stat Lab 08/24/24 01:31 Completed Troponin I Q3H Lab 08/24/24 05:06 Completed Troponin I Q3H Lab 08/24/24 07:45 Ordered Troponin I Stat Lab 08/24/24 01:31 Completed MDM Narrative Medical Decision Narrative: In summary, this 74-year-old male with comorbidities described in HPI presents to the emergency department today with abdominal pain, chest pain. On initial evaluation patient is hemodynamically stable though mildly tachycardic, afebrile, physical exam is most notable for abdominal tenderness to palpation with voluntary guarding, no rebound. Patient has baseline tremors. No focal neurologic deficit. Differential diagnosis includes but is not limited to ACS, PE, electrolyte abnormality, esophageal spasm, bowel obstruction, pancreatitis,With patient's scleral icterus I would not be surprised if he has hyperbilirubinemia, transaminitis. I reviewed patient's previous labs and he occasionally does have elevated AST and alkaline phosphatase. Based on these concerns, I ordered serum labs, CT imaging, cardiac workup. ECG personally interpreted demonstrates significant artifact on ECG, sinus tachycardia, rate 132, normal axis, normal NV and QTc, I do not appreciate STEMI however artifact complicates interpretation. Repeat ECG ordered. Patient received IV fluids, Maalox, Zofran, aspirin, [place] for treatment of symptoms. Labs personally reviewed demonstrate no leukocytosis, mild anemia, normal platelets, D-dimer elevated at 1.41, CT PE added to workup. PT/INR normal. CMP with kidney dysfunction at baseline, hyperglycemia consistent with known diabetes, patient does have elevation of AST as well as alkaline phosphatase and hyperbilirubinemia with bilirubin 2.6. Initial troponin undetectably low less than 0.01 reassuring in the setting of patient's duration of symptoms. Repeat ECG personally interpreted demonstrate sinus tachycardia, rate 119, borderline left axis deviation, artifact is still complicating interpretation, however this ECG is clear, I do not appreciate findings of STEMI however there are depressions in the inferior leads without appreciable reciprocal changes. Chest x-ray personally interpreted does not demonstrate acute intrathoracic abnormality. See radiology read for final interpretation. CT abdomen pelvis does not demonstrate findings of bowel obstruction on my personal interpretation, however radiology read, notes on bile duct abnormality and nodularity. Indirect bilirubin is pending, however I believe patient would benefit from ERCP, however this is not emergent at this time. CTA PE personally interpreted does not demonstrate PE on my personal interpretation, other incidental findings discussed with patient and . See radiology read for final interpretation. Repeat ECG personally interpreted demonstrate sinus tachycardia, normal axis, normal NV and QTc, slight ST depressions in the inferior leads without elevations in the anterior lateral leads, no STEMI. On reassessment patient reports his symptoms are improved but not absent. Given his symptoms, mild scleral icterus, the abnormalities on labs as well as his CT findings, I believe patient would benefit from inpatient management. We have GI services available however Dr. Sanchez is not on-call overnight. I discussed this case with Dr. Cast who is willing to take the patient if Dr. Sanchez is willing to evaluate and intervene on the patient. [address] Sanchez, awaiting a callback. Indirect bilirubin resulted at 0.1, normal, this indicates that the hyperbilirubinemia is a direct, conjugated hyperbilirubinemia which is consistent with the findings on CT including bile duct dilation with nodularity. Second troponin also undetectably low less than 0.01. Significantly reassuring against cardiac pathology. 0610 Dr. Sanchez was paged again by both myself and the hospitalist, he called the hospitalist back and they discussed this case, Dr. Cast reported back to me that Dr. Sanchez is comfortable taking this patient for ERCP so Dr. Cast graciously accepted the patient for admission. Patient admitted in stable condition
--- NOTE | 2024-08-24 01:51 | CT_ITS ---
PROCEDURE INFORMATION: Exam: CT Abdomen And Pelvis With Contrast Exam date and time: 08/24/2024 2:11 AM Age: 74 years old Clinical indication: Nausea; Abdominal pain; Additional info: Abd pain nausea, HX surgeries TECHNIQUE: Imaging protocol: Computed tomography of the abdomen and pelvis with contrast. Radiation optimization: All CT scans at this facility use at least one of these dose optimization techniques: automated exposure control; mA and/or kV adjustment per patient size (includes targeted exams where dose is matched to clinical indication); or iterative reconstruction. Contrast material: ISOVUE; Contrast volume: 75 ml; Contrast route: IV; COMPARISON: CT ANGIO CHEST PE PROTOCOL 09/22/2022 11:14 AM FINDINGS: Lungs: Right middle and right lower lobe calcified granulomas. Liver: Normal. No mass. Gallbladder and biliary ducts: Worsening of the previously noted nonspecific pneumobilia. Cholecystectomy. Pancreas: Unremarkable. Spleen: Splenomegaly. Splenic granulomas. Adrenal glands: Unremarkable. Kidneys and ureters: Left-sided nephrectomy. Right-sided simple cortical renal cysts. Stomach and bowel: Unremarkable. No mechanical obstruction. No mucosal thickening. Appendix: Appendix not definitely seen. No right lower quadrant inflammation identified. Intraperitoneal space: No free air or free fluid. Vasculature: Accessory right renal artery. Moderate atherosclerotic changes of the aorta and its major branches. Lymph nodes: Mild reactive mesenteric and retroperitoneal lymph nodes. Urinary bladder: Unremarkable. Reproductive: Unremarkable. Bones/joints: Mild spondylosis. No acute fracture. Soft tissues: Dilation of the CBD measuring 2 cm with an obstructive soft tissue nodularity distally at the ampulla (series 1001, image 38). Nonspecific soft tissue thickening and calcifications along the umbilicus may represent postsurgical scarring. IMPRESSION: Dilation of the CBD with an obstructive soft tissue nodularity distally at the ampulla. Recommend ERCP for further evaluation. COMMENTS: Consistent with the [employer]'s Incidental Findings Committee white paper (J Am Karishma Radiol 2018): Any incidental renal lesion less than 1 cm or classified as too small to characterize, or any incidental cystic renal lesion characterized as simple-appearing, is likely benign. No follow-up imaging is recommended for these lesions per consensus recommendations based on imaging criteria.
--- NOTE | 2024-08-24 01:53 | ECG_ITS ---
APPROVED REPORT Exam: Resting ECG HR:119 bpm ECG Measurements Heart Rate 119 AXES DE 198 P 68 QRSd 105 QRS -48 QT 294 T 85 QTc 365 Conclusion SINUS TACHYCARDIA LEFT AXIS DEVIATION [QRS AXIS < -30] POSSIBLE ANTERIOR MYOCARDIAL INFARCTION , OF INDETERMINATE AGE [30 ms Q WAVE IN V3/V4, OR R < 0.2 mV IN V4] ABNORMAL ECG UNCONFIRMED REPORT Electronically signed by : PILAR MCGINNIS, 08/24/2024 23:52:24
[2024-08-24 02:03] LABS: Basophils % 0.2 % (0.1-2.0); Eosinophils % 0.1 % (0.1-12.0); Hematocrit 36.1 % (42.0-52.0); Hemoglobin 12.1 g/dL (14.1-18.0); Lymphocytes # 0.3 K/mm3 (0.7-4.5); Lymphocytes % 4.5 % (10-50); Mean Corpuscular HGB Conc 33.6 g/dL (31.8-35.4); Mean Corpuscular Hemoglobin 32.6 pg (27.0-31.2); Mean Corpuscular Volume 97.1 fl (80-94); Mean Platelet Volume 8.5 fl (7.4-10.4); Monocytes # 0.2 K/mm3 (0.1-1.0); Monocytes % 2.8 % (1.7-9.3); Neutrophils % 92.3 % (37.0-80.0); Platelet Count 156 K/mm3 (142-424); Red Blood Count 3.72 M/mm3 (4.60-6.20); Red Cell Distribution Width 14.6 % (11.5-17.5); White Blood Count 6.5 K/mm3 (4.8-10.8)
[2024-08-24] MEDS: ASPIRIN 81MG CHEWABLE TABLET 324 MG PO (02:03)
[2024-08-24] MEDS: ALUMINUM/MAGNESIUM/SIMETHICONE 30ML UDC 30 ML PO (02:04)
[2024-08-24] MEDS: ONDANSETRON 4MG/2ML VIAL 4 MG IV (02:04)
[2024-08-24 02:06] LABS: Alanine Aminotransferase 26 U/L (12-78); Albumin Level 4.2 g/dl (3.5-5.0); Albumin/Globulin Ratio 1.9 (1.1-1.8); Alkaline Phosphatase 553 U/L (38-126); Aspartate Amino Transferase 369 U/L (17-59); Bilirubin,Total 2.6 mg/dl (0.2-1.3); Blood Urea Nitrogen 25 mg/dl (9-20); Calcium 9.1 mg/dl (8.4-10.2); Carbon Dioxide 32 mmol/L (22.0-30.0); Chloride 106 mmol/L (98-107); Creatinine Clearance Estimated 46 mL/min (50-200); Estimated Glomerular Filt Rate 42 ml/min (>60); GFR (African American) 51 ML/MIN (>60); Globulin 2.2 g/dL (1.3-3.2); Glucose 208 mg/dl (74-100); MANUAL DIFFERENTIAL MANUAL DIFFERENTIAL (MANUAL DIFF); Potassium 4.4 mmoL/L (3.5-5.1); Total Protein,Serum 6.4 g/dl (6.3-8.2)
[2024-08-24] MEDS: HYDROCODONE/APAP 5/325 MG TABLET 1 TAB PO (02:06)
[2024-08-24 02:08] LABS: INR 0.97 (0.9-1.1); Prothrombin Time 10.9 seconds (10.1-12.5)
[2024-08-24] MEDS: RINGERS SOLUTION,LACTATED 500 ML 999 ML IV (02:09)
[2024-08-24 02:18] LABS: NT Pro Brain Natriuretic Pep. 749 pg/mL (0-450)
[2024-08-24 02:24] LABS: Troponin I < 0.01 ng/ml (0.00-0.034)
[2024-08-24 02:25] LABS: D-Dimer 1.41 ug/mL (0.0-0.5)
[2024-08-24] MEDS: SODIUM CHLORIDE 0.9% 10ML SYR (RAD ONLY) 10 ML IV ×2 (02:38→03:28)
[2024-08-24] MEDS: IOPAMIDOL-370 (76%);100ML BOTTLE 75 ML IV (02:38)
--- NOTE | 2024-08-24 02:56 | CT_ITS ---
PROCEDURE INFORMATION: Exam: CTA Chest With Contrast Exam date and time: 08/24/2024 3:03 AM Age: 74 years old Clinical indication: Pain and abnormal findings; Abnormal diagnostic tests; Elevated d-dimer; Sternal or substernal pain; Additional info: Cp dimer positive TECHNIQUE: Imaging protocol: Computed tomographic angiography of the chest with contrast. Exam focused on the arteries. 3D rendering (Not supervised by radiologist): MIP and/or 3D reconstructed images were created by the technologist. Radiation optimization: All CT scans at this facility use at least one of these dose optimization techniques: automated exposure control; mA and/or kV adjustment per patient size (includes targeted exams where dose is matched to clinical indication); or iterative reconstruction. Contrast material: ISOUVE 370; Contrast volume: 70 ml; Contrast route: INTRAVENOUS (IV); COMPARISON: CT ANGIO CHEST PE PROTOCOL 09/22/2022 11:14 AM FINDINGS: Limitations: Suboptimal evaluation of the segmental and subsegmental pulmonary arteries secondary to respiratory motion. Pulmonary arteries: Enlargement of the pulmonary trunk measuring 3.7 cm. Aorta: Unremarkable. No aortic aneurysm. No aortic dissection. Thyroid: Hypodense left thyroid nodule measuring 4.7 x 2.5 cm (series 1001, image 54). Lungs: Right lower lobe calcified granuloma. Left lower lobe noncalcified nodule measuring 7 x 6 mm (series 5, image 65). Pleural spaces: Unremarkable. No pneumothorax. No pleural effusion. Heart: Unremarkable. No cardiomegaly. No pericardial effusion. Coronary arteries: Severe coronary artery calcifications. Esophagus: Fluid distended esophagus. Lymph nodes: Prominent mediastinal lymph nodes measuring up to 1.4 cm in jacques station 4R. Bones/joints: T6 and T7 vertebral body hemangiomas. Mild spondylosis. Soft tissues: Unremarkable. Other findings: For findings pertaining to the abdomen please see concurrent CT abdomen pelvis. IMPRESSION: 1. No definite pulmonary embolus. 2. Enlargement of the pulmonary trunk may be secondary to pulmonary hypertension. 3. 4.7 cm hypodense thyroid nodule. Recommend dedicated thyroid ultrasound for further evaluation. 4. Incidental left lower lobe pulmonary nodule. For patients at low risk (minimal or absent history of smoking and of other known risk factors), recommend CT Chest at 6-12 months, then consider CT Chest at 18-24 months. For patients at high risk (history of smoking or of other known risk factors), recommend CT Chest at 6-12 months, then [address] Chest at 18-24 months. (Reference: Vanesa) COMMENTS: Consistent with the [employer]'s Incidental Findings Committee white paper (J Am Karishma Radiol 2015): In patients aged 35 years and older with an incidental thyroid nodule equal to or greater than 1.[address], MRI or extrathyroidal US, further evaluation with dedicated thyroid US is recommended for patients with normal life expectancy and without comorbidities. For smaller nodules without suspicious features, no further evaluation or follow up is recommended. REFERENCES: Vanesa Mireles, et al. Guidelines for Management of Incidental Pulmonary Nodules Detected on CT Images: From the [employer]ischner Society 2017. Radiology. 2017;284(1):228-243.
[2024-08-24 03:06] LABS: Anion Gap 7.4 mEq/L (5-15); Sodium 141 mmol/L (136-145)
--- NOTE | 2024-08-24 03:11 | ECG_ITS ---
APPROVED REPORT Exam: Resting ECG HR:114 bpm ECG Measurements Heart Rate 114 AXES MO 206 P 81 QRSd 109 QRS -51 QT 314 T 91 QTc 381 Conclusion SINUS TACHYCARDIA LEFT ANTERIOR FASCICULAR BLOCK [QRS AXIS <= -45, QR IN I, RS IN II] POSSIBLE ANTERIOR MYOCARDIAL INFARCTION , OF INDETERMINATE AGE [30 ms Q WAVE IN V3/V4, OR R < 0.2 mV IN V4] ABNORMAL ECG UNCONFIRMED REPORT Electronically signed by : PILAR MCGINNIS, 08/24/2024 23:22:20
[2024-08-24] MEDS: 0.9 % SODIUM CHLORIDE 50 ML VIAL IV (03:27)
[2024-08-24] MEDS: IOPAMIDOL-370 (76%);100ML BOTTLE 70 ML IV (03:27)
[2024-08-24 03:28] LABS: Lymphocytes % 5 % (10-50); Monocytes % 1 % (2-9); Neutrophils % 94 % (42-76); Total Cells Counted 100
[2024-08-24 03:29] LABS: Platelet Estimate Normal; RBC Morphology Normal
--- NOTE | 2024-08-24 04:25 | EXP.HP ---
History of Present Illness *Admission Date: 08/24/24 *Reason for visit:: Nausea, abdominal pain *History of present illness: 74-year-old [employer] with past medical history of Parkinson's disease, hypertension, diabetes, CKD, CVD, anemia, gout, hyperlipidemia, diastolic heart failure. Patient presents complaining of abdominal discomfort after eating starting the day. Patient states abdominal discomfort started approximately 6 hours prior to ED presentation. Describes abdominal discomfort as 6/10, squeezing upper abdominal pain, worse after eating, occurring with nausea but denies vomiting. Patient has history of cholecystectomy, appendectomy and nephrectomy, yet CT abdomen/pelvis shows dilated common bile duct. Patient jaundice during my exam in ED denies fevers, chills, known sick contacts, recent travel. With total bili 2.6, alk phos 553, AST 369 at time of admission. Denies history of accidents or abdominal trauma recently. [facility] Disclaimer: The information contained in this section may have been updated after the patient was seen, as this information can be updated by other users. Medical History Thyroid nodule Enlarged thyroid Deviated septum Thyroid mass Healthcare maintenance Acute ischemic stroke History of TIA (transient ischemic attack) DM type 2 (diabetes mellitus, type 2) COPD (chronic obstructive pulmonary disease) GERD (gastroesophageal reflux disease) Single kidney Heart failure TIA (transient ischemic attack) Daytime somnolence Parkinson disease Symptomatic improvement with carbidopa/levodopa and entacapone Surgical History History of cholecystectomy Hx of appendectomy H/O left nephrectomy Family History Other No significant family history Social History Smoking Status: Unknown if ever smoked second hand exposure: Yes alcohol intake: current alcohol intake frequency: a few times a month substance use type: denies use current occupational status: retired Travel in the last 8 weeks: None household members: spouse housing: house marital status: current occupational exposures/hazards: No caffeine: No Have you lived/traveled outside US in past 30 days?: No Contact w/someone who lives/traveled outside US past 30 days?: No Exposure to someone with infectious disease in past 14 days?: No Do you have a fever (greater than 100.4 F or 38 C)?: No Have you tested positive for COVID-19: No Exposed to someone with COVID-19 in past 14 days?: No Do you have a sore throat?: No Do you have a cough?: No Do you have any weakness?: No Do you have any diarrhea?: No Are you experiencing any unusual bleeding?: No Do you have any muscle aches/pain?: No Do you have any abdominal pain?: No Are you experiencing loss of taste or smell?: No Other Medical History Have you received the Flu Vaccine for this season: No Have you received the Pneumonia Vaccine: No Review of Systems Review of Systems Review of systems:: pertinent systems reviewed and negative unless documented below Constitutional Constitutional: Reports system reviewed and no additional complaints, except as documented Meds Home Medications and Allergies Home Medications ?Medication ?Instructions ?Recorded ?Confirmed ?Type docusate sodium 50 mg capsule 100 mg PO DAILY 12/18/23 08/03/24 History simvastatin 20 mg tablet 20 mg PO HS 90 days #90 tabs 12/25/23 08/03/24 Rx allopurinol 100 mg tablet See Rx Instructions .Route 04/30/24 08/03/24 Rx .COMPLEX #90 tabs pantoprazole 40 mg tablet,delayed 40 mg PO BID 06/18/24 08/03/24 History release carbidopa ER 50 mg-levodopa 200 mg 1 tab PO QID #120 tabs 06/24/24 08/03/24 Rx tablet,extended release entacapone 200 mg tablet 200 mg PO QID Parkinsons #120 tabs 06/24/24 08/03/24 Rx furosemide 20 mg tablet 20 mg PO DAILY PRN edema #60 tabs 07/02/24 08/03/24 Rx aspirin 81 mg tablet,delayed 81 mg PO DAILY 07/08/24 08/03/24 History release (Adult Low Dose Aspirin) mecobalamin (vitamin B12) 1,000 1,000 mcg PO DAILY 07/08/24 08/03/24 History mcg lozenges gabapentin 600 mg tablet See Rx Instructions .Route 07/20/24 08/03/24 Rx .COMPLEX #90 tabs gcxjmxdeazobrhh-ojckbxzjpumsasw-GC 5 ml PO Q4H PRN sinus symptoms 08/06/24 Rx 2 mg-30 mg-10 mg/5 mL oral syrup #118 mL (Bromfed DM) hydrocodone 10 mg-acetaminophen 1 tab PO Q4-6H PRN pain 30 days 08/10/24 Rx 325 mg tablet #120 tabs New Prescriptions to Start Prescriptions: Allergies Allergy/AdvReac Type Severity Reaction Status Date / Time mupirocin Allergy Verified 08/12/24 08:02 Exam Data for Last 24 hours Vital signs and Labs for Last 24 Hours: Temp Pulse Resp BP Pulse Ox O2 Del Method 98.4 F 119 H 22 123/61 95 Room Air 08/24/24 01:26 08/24/24 01:26 08/24/24 01:26 08/24/24 01:26 08/24/24 01:08/24/24 01:26 Laboratory Results - last 24 hr 08/24/24 01:31: WBC 6.5, RBC 3.72 L, Hgb 12.1 L, Hct 36.1 L, MCV 97.1 H, MCH 32.6 H, MCHC 33.6, RDW 14.6, Plt Count 156, MPV 8.5, Neut % (Auto) 92.3 H, Lymph % (Auto) 4.5 L, [place] % (Auto) 2.8, Eos % (Auto) 0.1, Baso % (Auto) 0.2, Neut # (Auto) 6.0, Lymph # (Auto) 0.3 L, [place] # (Auto) 0.2, Eos # (Auto) 0.0, Baso # (Auto) 0.0, Total Counted 100, Neutrophils % (Manual) 94 H, Lymphocytes % (Manual) 5 L, Monocytes % (Manual) 1 L, Platelet Estimate Normal, RBC Morphology Normal, PT 10.9, INR 0.97, D-Dimer 1.41 H, Sodium 141, Potassium 4.4, Chloride 106, Carbon Dioxide 32 H, Anion Gap 7.4, BUN 25 H, Creatinine 1.60 H, Estimated Creat Clear 46, Estimated GFR 42 L, Est GFR ( Amer) 51 L, Glucose 208 H, Calcium 9.1, Total Bilirubin 2.6 H, AST 369 H*, ALT 26, Alkaline Phosphatase 553 H, Troponin I < 0.01, NT-Pro-B Natriuret Pep 749 H, Total Protein 6.4, Albumin 4.2, Globulin 2.2, Albumin/Globulin Ratio 1.9 H I & O for Last 24 hours: Intake & Output 08/21/24 08/22/24 08/23/24 08/24/24 23:59 23:59 23:59 23:59 Weight 81.647 kg Constitutional Constitutional: no acute distress *Routine HEENT Exam Head: Present normocephalic Eye: Present EOMI ENT: Present mucous membranes dry *Routine Neck Exam Neck: Present supple and full ROM *Routine Respiratory Exam Respiratory: Present decreased breath sounds *Routine Cardiovascular Exam Cardiovascular: Present RRR and Normal S1 *Routine Abdominal Exam Abdominal: Present normoactive bowel sounds, distended and firm *Routine Rectal Exam Rectal:: deferred *Routine Genitalia Exam Genitalia:: deferred *Routine Skin Exam Skin: Present intact and erythema *Routine Neurological Exam Neurological: Present alert and oriented X3 Assessment and Plan *Assessment and plan (1) Common bile duct dilation: Status: Acute Category: Medical Code(s): K83.8 - Other specified diseases of biliary tract (2) Hyperbilirubinemia: Status: Acute Category: Medical Code(s): E80.6 - Other disorders of bilirubin metabolism (3) Abdominal pain: Status: Acute Category: Medical Code(s): R10.9 - Unspecified abdominal pain (4) Transaminitis: Status: Acute Category: Medical Code(s): R74.01 - Elevation of levels of liver transaminase levels (5) Acute on chronic renal failure: Problem Comment: Improved but needs follow-up with PCP Status: Resolved Qualifiers: Acute renal failure type: unspecified Chronic kidney disease stage 3 subtype: stage 3b (GFR 30-44) Category: Medical Code(s): N17.9 - Acute kidney failure, unspecified; N18.9 - Chronic kidney disease, unspecified (6) 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 GFR 30-59: Status: Acute Category: Medical Code(s): E10.22 - Type 1 diabetes mellitus with diabetic chronic kidney disease; N18.30 - Chronic kidney disease, stage 3 unspecified (7) Neuropathy: Status: Acute Category: Medical Code(s): G62.9 - Polyneuropathy, unspecified (8) Anemia: Status: Acute Qualifiers: Anemia type: unspecified type Qualified Code(s): D64.9 - Anemia, unspecified Category: Medical Code(s): D64.9 - Anemia, unspecified (9) HTN (hypertension): Status: Chronic Qualifiers: Hypertension type: essential hypertension Qualified Code(s): I10 - Essential (primary) hypertension Category: Medical Code(s): I10 - Essential (primary) hypertension (10) Gout: Status: Chronic Qualifiers: Chronicity: acute Gout etiology: other secondary cause Gout site: hand Laterality: right Qualified Code(s): 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, right hand Category: Medical Code(s): M10.9 - Gout, unspecified (11) HLD (hyperlipidemia): Status: Chronic Qualifiers: Hyperlipidemia type: other hyperlipidemia Qualified Code(s): E78.49 - Other hyperlipidemia Category: Medical Code(s): E78.5 - Hyperlipidemia, unspecified (12) Diastolic heart failure: Status: Chronic Qualifiers: Heart failure chronicity: chronic Qualified Code(s): I50.32 - Chronic diastolic (congestive) heart failure Category: Medical Code(s): I50.30 - Unspecified diastolic (congestive) heart failure (13) Parkinson disease: Status: Acute Category: Medical Code(s): G20.A1 - Parkinson's disease without dyskinesia, without mention of fluctuations (14) Choledocholithiasis: Status: Acute Category: Medical Code(s): K80.50 - Calculus of bile duct without cholangitis or cholecystitis without obstruction Plan 74-year-old [employer] with past medical history of Parkinson's disease, hypertension, diabetes, CKD, CVD, anemia, gout, hyperlipidemia, diastolic heart failure. Patient presents complaining of abdominal discomfort after eating starting the day. Patient jaundice, with total bili 2.6, alk phos 553, AST 369 at time of admission. Patient admitted with choledocholithiasis with ERCP planned during this hospitalization. Problems as listed below: Labs/imaging reviewed at time of admission: ?WBC 6.5, Hgb 12.5, platelets 156, D-dimer 1.41, NA 141, K4.4, CL 106, CO2 32, BUN 25, CR 1.6, total bili 2.6, AST 369, ALT 26, alk phos 553, troponin<0.01, BNP 749. I will repeat CMP, mag, CBC in a.m. ?CT abdomen/pelvis CBD 2 cm with obstructive soft tissue nodularity distal to the Impella. ERCP recommended by radiologist. ? CTA chest: No pulmonary embolus. Engorgement of the pulmonary trunk may be secondary to pulmonary hypertension. Incidental left lower lobe pulmonary nodule. Choledocholithiasis: ? Admit for ERCP, start empirical IV Zosyn, blood cultures, consult GI, follow-up procalcitonin and lactic acid levels during hospitalization. Cautious maintenance IV fluids given diastolic heart failure diagnosis. Start 50 cc/h NS x 6 hours. ?I personally spoke with Dr. Sanchez, gastroenterology, who plans to perform ERCP today. Will leave patient n.p.o. till ERCP completed today. Parkinson's disease:entacapone 200 mg p.o. 4 times daily Diabetes: Patient states he no longer requires diabetic medication at home. Check hemoglobin A1c, twice daily AC Accu-Cheks with sliding scale insulin coverage if needed. CKD: Minimize use of nephrotoxic drugs Diastolic heart failure: Lasix 20 mg p.o. daily, hold aspirin 81 mg p.o. daily till after ERCP procedure today. CVD: As listed and diastolic heart failure section Gout: Allopurinol 100 mg p.o. daily Hyperlipidemia: Simvastatin 20 mg p.o. daily Anemia: Serial CBCs daily PPx SCDs CODE STATUS full FEN: Allowed patient to have clears until 6 AM, then change patient to n.p.o. in preparation for ERCP. MDM: Copa: Moderate, patient suffering from acute abdominal pain likely secondary to choledocholithiasis Data: High, see above. I spoke with the emergency room doctor and agreed that patient required immediate admission for ERCP evaluation of choledocholithiasis Risk: Moderate, made decision to admit patient to hospital for ERCP evaluation for choledocholithiasis management. IV Zosyn and rest of prescription drug management as listed above including maintenance IV fluids. 35 minutes of total care time spent in patient with Dr. Cast 08/24/2024.
--- NOTE | 2024-08-24 04:42 | PC.NURSE ---
Dr. Cast is bedside talking with the patient.
[2024-08-24 04:47] LABS: Lipase 227 U/L (23-300)
[2024-08-24 05:26] LABS: Bilirubin,Indirect 0.1 mg/dL (0.0-0.9)
[2024-08-24 05:41] LABS: Troponin I < 0.01 ng/ml (0.00-0.034)
--- NOTE | 2024-08-24 06:21 | PC.NURSE ---
Pt transported to inpatient unit via stretcher with IV
[2024-08-24] MEDS: MORPHINE 2MG/ML SYRINGE 2 MG IV (06:46)
[2024-08-24] MEDS: 0.9 % SODIUM CHLORIDE 1000ML 1,000 ML 50 ML IV (06:49)
[2024-08-24] MEDS: PIPERACILLIN/TAZO 3.375 GM in 0.9 % SODIUM CHLORIDE 100 ML IV (06:57)
--- NOTE | 2024-08-24 07:23 | FL_ITS ---
FINAL REPORT CLINICAL HISTORY: ERCP due to common bile duct stones FINDINGS: FLUOROSCOPY LESS THAN 1 HOUR HISTORY: Fluoroscopy guidance. Fluoroscopic guidance was provided for ERCP. A single image shows placement of a self-expanding metallic stent within the common bile duct. A total of 3.0 minutes of fluoroscopy time were used. Total DAP: 75.88 mGy IMPRESSION: As above. Reviewed, Interpreted and Dictated by Valente Martinez MD Transcribed by Aimee Luu Authenticated and [facility]
[2024-08-24] MEDS: LACTATED RINGERS 1000ML 1,000 ML 100 ML IV (08:36)
[2024-08-24] MEDS: CARBIDOPA/LEVODOPA CR 50/200MG TABLET 1 EACH PO ×3 (08:36→21:26)
[2024-08-24 09:16] LABS: Troponin I 0.02 ng/ml (0.00-0.034)
[2024-08-24] MEDS: LACTATED RINGERS 1000ML 1,000 ML 500 ML IV (10:23)
--- NOTE | 2024-08-24 11:16 | HMH.PHAINT1 ---
Pharmacy Intervention Comments: MEDICATION RECONCILIATION COMPLETED ON PATIENT USING EXTERNAL FILL HISTORY FROM PHARMACY AND [facility] REPORT. -KAYLEE SMITH, ZACHERYD
[2024-08-24 11:29] LABS: Ammonia < 9 umol/L (9-30)
[2024-08-24 11:36] LABS: POC Glucose,Bedside 201 (70-110)
--- NOTE | 2024-08-24 12:19 | EXP.HP ---
History of Present Illness *Admission Date: 08/24/24 *History of present illness: Mr. Maravilla is a 74-year-old [employer] admitted for common bile duct obstruction and total bili 2.6, alk phos 553, AST 369 at time of admission. CAT scan shows dilated common bile duct with probable choledocholithiasis. The patient did have cholecystectomy 3 years ago with Nathen Carl MD here at [facility]). The patient is starting to have some mild decline in cognitive status with mild hypotension and signs of possible early cholangitis. ERCP is performed for clearance of the biliary tree urgently. [facility] Disclaimer: The information contained in this section may have been updated after the patient was seen, as this information can be updated by other users. Medical History Thyroid nodule Enlarged thyroid Deviated septum Thyroid mass Healthcare maintenance Acute ischemic stroke History of TIA (transient ischemic attack) DM type 2 (diabetes mellitus, type 2) COPD (chronic obstructive pulmonary disease) GERD (gastroesophageal reflux disease) Single kidney Heart failure TIA (transient ischemic attack) Daytime somnolence Parkinson disease Symptomatic improvement with carbidopa/levodopa and entacapone Surgical History History of cholecystectomy Hx of appendectomy H/O left nephrectomy Family History Other No significant family history Social History Smoking Status: Unknown if ever smoked second hand exposure: Yes alcohol intake: current alcohol intake frequency: a few times a month substance use type: denies use current occupational status: retired Travel in the last 8 weeks: None household members: spouse housing: house marital status: current occupational exposures/hazards: No caffeine: No Have you lived/traveled outside US in past 30 days?: No Contact w/someone who lives/traveled outside US past 30 days?: No Exposure to someone with infectious disease in past 14 days?: No Do you have a fever (greater than 100.4 F or 38 C)?: No Have you tested positive for COVID-19: No Exposed to someone with COVID-19 in past 14 days?: No Do you have a sore throat?: No Do you have a cough?: No Do you have any weakness?: No Do you have any diarrhea?: No Are you experiencing any unusual bleeding?: No Do you have any muscle aches/pain?: No Do you have any abdominal pain?: No Are you experiencing loss of taste or smell?: No Other Medical History Have you received the Flu Vaccine for this season: No Have you received the Pneumonia Vaccine: No Review of Systems Review of Systems Review of systems (narrative): Negative *Cardiovascular Comments: Negative *Gastrointestinal Comments: Negative *Genitourinary Comments: Negative *Musculoskeletal Comments: Negative *Neurologic Comments: Negative Meds Home Medications and Allergies Home Medications ?Medication ?Instructions ?Recorded ?Confirmed ?Type docusate sodium 50 mg capsule 100 mg PO DAILY 12/18/23 08/24/24 History simvastatin 20 mg tablet 20 mg PO HS 90 days #90 tabs 12/25/23 08/24/24 Rx pantoprazole 40 mg tablet,delayed 40 mg PO BID 06/18/24 08/24/24 History release carbidopa ER 50 mg-levodopa 200 mg 1 tab PO QID #120 tabs 06/24/24 08/24/24 Rx tablet,extended release aspirin 81 mg tablet,delayed 81 mg PO DAILY 07/08/24 08/24/24 History release (Adult Low Dose Aspirin) mecobalamin (vitamin B12) 1,000 1,000 mcg PO DAILY 07/08/24 08/24/24 History mcg lozenges allopurinol 100 mg tablet 100 mg PO DAILY 08/24/24 08/24/24 History entacapone 200 mg tablet 200 mg PO QID 08/24/24 08/24/24 History folic acid 1 mg tablet 1 mg PO DAILY 08/24/24 08/24/24 History furosemide 20 mg tablet 20 mg PO DAILYP PRN edema 08/24/24 08/24/24 History gabapentin 600 mg tablet 600 mg PO TID 08/24/24 08/24/24 History hydrocodone 10 mg-acetaminophen 1 tab PO Q4HP PRN Moderate Pain 08/24/24 08/24/24 History 325 mg tablet (Scale Score 5-6) New Prescriptions to Start Prescriptions: Allergies Allergy/AdvReac Type Severity Reaction Status Date / Time mupirocin Allergy Rash Verified 08/24/24 12:12 Exam Data for Last 24 hours Vital signs and Labs for Last 24 Hours: Temp Pulse Resp BP Pulse Ox O2 Del Method 97.8 F 90 20 93/52 L 95 Room Air 08/24/24 08:06 08/24/24 11:30 08/24/24 11:30 08/24/24 11:30 08/24/24 11:30 08/24/24 11:30 Laboratory Results - last 24 hr 08/24/24 01:31: WBC 6.5, RBC 3.72 L, Hgb 12.1 L, Hct 36.1 L, MCV 97.1 H, MCH 32.6 H, MCHC 33.6, RDW 14.6, Plt Count 156, MPV 8.5, Neut % (Auto) 92.3 H, Lymph % (Auto) 4.5 L, [place] % (Auto) 2.8, Eos % (Auto) 0.1, Baso % (Auto) 0.2, Neut # (Auto) 6.0, Lymph # (Auto) 0.3 L, [place] # (Auto) 0.2, Eos # (Auto) 0.0, Baso # (Auto) 0.0, Total Counted 100, Neutrophils % (Manual) 94 H, Lymphocytes % (Manual) 5 L, Monocytes % (Manual) 1 L, Platelet Estimate Normal, RBC Morphology Normal, PT 10.9, INR 0.97, D-Dimer 1.41 H, Sodium 141, Potassium 4.4, Chloride 106, Carbon Dioxide 32 H, Anion Gap 7.4, BUN 25 H, Creatinine 1.60 H, Estimated Creat Clear 46, Estimated GFR 42 L, Est GFR ( Amer) 51 L, Glucose 208 H, Calcium 9.1, Total Bilirubin 2.6 H, Indirect Bilirubin 0.1, AST 369 H*, ALT 26, Alkaline Phosphatase 553 H, Troponin I < 0.01, NT-Pro-B Natriuret Pep 749 H, Total Protein 6.4, Albumin 4.2, Globulin 2.2, Albumin/Globulin Ratio 1.9 H, Lipase 227 08/24/24 05:06: Troponin I < 0.01 08/24/24 08:39: Troponin I 0.02 08/24/24 11:01: Ammonia < 9 L 08/24/24 11:27: POC Glucose 201 H I & O for Last 24 hours: Intake & Output 12/1308/22/24 08/23/24 08/24/24 23:59 23:59 23:59 23:59 Weight 167 lb 14.4 oz *Routine HEENT Exam Head: Present normocephalic Eye: Present EOMI and PERRL ENT: Present mucous membranes moist *Routine Neck Exam Neck: Present supple *Routine Respiratory Exam Respiratory: Present CTA bilaterally *Routine Cardiovascular Exam Cardiovascular: Present RRR *Routine Abdominal Exam Abdominal: Present soft and normoactive bowel sounds; Absent tenderness *Routine Rectal Exam Rectal:: deferred *Routine Genitalia Exam Genitalia:: deferred *Routine Extremities Exam Extremities: Absent cyanosis, clubbing or edema *Routine Skin Exam Skin: Present warm; Absent rash *Routine Neurological Exam Neurological: Present alert and oriented X3 Assessment and Plan *Assessment and plan (1) Choledocholithiasis: Status: Acute Category: Medical Code(s): K80.50 - Calculus of bile duct without cholangitis or cholecystitis without obstruction (2) Common bile duct dilation: Status: Acute Category: Medical Code(s): K83.8 - Other specified diseases of biliary tract (3) Hyperbilirubinemia: Status: Acute Category: Medical Code(s): E80.6 - Other disorders of bilirubin metabolism (4) Acute cholangitis: Status: Acute Category: Medical Code(s): K83.09 - Other cholangitis Plan A/P: 1. Right upper quadrant abdominal pain with jaundice, imaging evidence of bile duct obstruction and early signs of cholangitis is the preprocedural diagnosis. The patient will be anesthetized/sedated using MAC sedation. The patient has been seen and examined. Cardiac and lung assessment prior to the examination is stable. Proceed with planned ERCP
[2024-08-24] MEDS: INDOMETHACIN 50MG SUPPOSITORY 100 MG RC (13:08)
--- NOTE | 2024-08-24 13:10 | P.PCN_ITS ---
[facility] Procedure Note Date: 08/24/24 Time: 13:10 Procedure Note:: ERCP procedure Report: Endoscopic retrograde cholangiopancreatography with extension of biliary sphincterotomy, sphincteroplasty (TTS balloon dilation), balloon sweep and biliary SEMS Wallstent placement Endoscopist: Timmy Sanchez II, MD Referring Physician: Kwan Beth DO Date of Procedure: August 24, 2024 Equipment: Olympus 180 side viewing endoscope duodenoscope Sedation: MAC sedation Indication: Mr. Maravilla is a 74-year-old gentleman who had cholecystectomy in October 2018 (Nathen Carl MD) here at [facility]. At that time, he presumably had common bile duct stones and had ERCP with biliary clearance. The patient presented with upper abdominal pain, jaundice and nausea. He had no preceding fever. He has had some darkened urine and no reported acholic stools. He presented to the ED last evening and labs showed total bilirubin of 2.6, AST 369 and alkaline phosphatase 553. His lipase was normal at 227. Abdominal CAT scan did show dilation of the CBD with a obstructive soft tissue nodularity at the ampulla. ERCP is performed for presumed common bile duct stones with early cholangitis. He has had some hypotension and cognitive changes this morning suspicious of early cholangitis and possible early biliary sepsis. Procedure: Prior to the procedure, a history and physical exam was performed, and patient's medications and allergies were reviewed. The risks, benefits and alternatives of the sedation and procedure were discussed with the patient. All questions were answered and informed consent was obtained. The patient was brought to the fluoroscopic radiology room. Patient identification and proposed procedure were verified by the physician and the nurse. The patient was placed in a swimmer's position between left lateral decubitus and prone position and the scope was passed under direct vision. Throughout the procedure, the patient's blood pressure, pulse, and oxygen saturations were monitored continuously. The ERCP was accomplished without difficulty. The patient tolerated the procedure well. Findings: The duodenoscope was passed directly into the upper esophagus and advanced to the second portion of the duodenum. There was a small hiatal hernia but the remainder of the upper digestive tract was normal. The ampulla was identified with biliary orifice identified and there was an adjacent duodenal diverticulum that was small. The common bile duct was selectively cannulated. The cholangiogram did show a dilated 14 to 15 mm common bile duct with filling defects distally within the common bile duct consistent with choledocholithiasis. There was evidence of prior sphincterotomy and I did extend this gently since it was a complete sphincterotomy. Next, I did perform biliary sphincteroplasty/TTS balloon dilation of the distal CBD which was tapering and dilated this up to 10 mm with a TTS hydrostatic balloon. Next, I did perform balloon sweep with extraction of at least 3 yellowish-brown stones which were fragmented by the balloon sweep. Several sweeps were performed and there was evidence of pus/purulence with white pus identified consistent with cholangitis or early cholangitis. After several balloon sweeps yielding sludge and some debris, I did feel that prophylactic CBD stenting with larger biliary stent (SEMS 10 mm x 60 mm Wallstent) utilized with excellent decompression of the biliary system. The pancreatic duct was not cannulated. Impression: 1. Choledocholithiasis with early cholangitis status post biliary clearance and SEMS 10 mm biliary stent placement Plan: I would certainly keep the patient overnight. I will check labs again in the morning including liver chemistries, amylase and lipase. The patient should have clinical improvement with clearance of the biliary system. I will plan to remove the stent in 12 weeks with complete clearance of the CBD at that time. These larger stents do act to provide some mechanical lithotripsy effect and have proven to be superior to some of the smaller plastic stents.
[2024-08-24] MEDS: IOPAMIDOL-370 (76%);100ML BOTTLE 100 ML IV (13:23)
--- NOTE | 2024-08-24 13:23 | SUR.OPER ---
1308-distal tip removed and disposed by Shawn Mojica RN on ERCP scope. This RN witnessed.
--- NOTE | 2024-08-24 13:26 | P.PNANES_ITS ---
[facility] Disclaimer: The information contained in this section may have been updated after the patient was seen, as this information can be updated by other users. Medical History Thyroid nodule Enlarged thyroid Deviated septum Thyroid mass Healthcare maintenance Acute ischemic stroke History of TIA (transient ischemic attack) DM type 2 (diabetes mellitus, type 2) COPD (chronic obstructive pulmonary disease) GERD (gastroesophageal reflux disease) Single kidney Heart failure TIA (transient ischemic attack) Daytime somnolence Parkinson disease Symptomatic improvement with carbidopa/levodopa and entacapone Surgical History History of cholecystectomy Hx of appendectomy H/O left nephrectomy Family History Other No significant family history Social History Smoking Status: Unknown if ever smoked second hand exposure: Yes alcohol intake: current alcohol intake frequency: a few times a month substance use type: denies use current occupational status: retired Travel in the last 8 weeks: None household members: spouse housing: house marital status: current occupational exposures/hazards: No caffeine: No Have you lived/traveled outside [place] in past 30 days?: No Contact w/someone who lives/traveled outside US past 30 days?: No Exposure to someone with infectious disease in past 14 days?: No Do you have a fever (greater than 100.4 F or 38 C)?: No Have you tested positive for COVID-19: No Exposed to someone with COVID-19 in past 14 days?: No Do you have a sore throat?: No Do you have a cough?: No Do you have any weakness?: No Do you have any diarrhea?: No Are you experiencing any unusual bleeding?: No Do you have any muscle aches/pain?: No Do you have any abdominal pain?: No Are you experiencing loss of taste or smell?: No [facility] Anesthesia Checklist Patient Identification Patient Identification: Arm Band Structural Data Admitted From: Inpatient Planned Operative Procedure/s: ERCP Consent for Planned Operative Procedure(s) Verified: Yes Verified Documents: Surgical Consent and History and Physical NPO Status Verified Time NPO: 00:00 Additional verifications Anesthesia Reactions: No Hx Blood Transfusions: No Blood Transfusion Reaction: No Airway Assessment Mallampati Score:: Class II C-Spine Mobility Assessed: Yes TMJ Mobility Assessed: Yes Dentition: Poor Dentition Neurological Assessment Level of Consciousness: Awake, Alert and Appropriate Anesthesia Plan Anesthesia Risk discussed: Yes Anesthesia Plan: Verified ASA Class: III Anesthesia Type: General
--- NOTE | 2024-08-24 13:27 | EXP.ANES.I ---
[facility] Anesthesia Record Part I Anesthesia Record I Intake, IV Amount: 1,000 Hydration: Adequate Estimated blood loss (mL): 0 Urine output (mL): 0 Blood Products used (#): none Blood Pressure: 103/65 SaO2: 100 Pulse Rate: 83 Airway Patency: Patent Respiratory Rate: 16 Temperature: 97.8 F Patient is:: Drowsy and Stable Stable to PACU at:: 13:20
--- NOTE | 2024-08-24 14:20 | SUR.PHASEI ---
a new IV was placed in the patients left AC. a 20 gauge catheter was used.
[2024-08-24] MEDS: PIPERACILLIN/TAZO 3.375 GM in 0.9 % SODIUM CHLORIDE 50 ML IV ×2 (14:40→18:14)
--- NOTE | 2024-08-24 15:26 | EXP.CCNOTE ---
Critical Care Event Note Summary Code activated: No Narrative: This case had a high probability of a clinically significant, sudden, or life threatening deterioration of this patient's condition which required my full and direct attention, intervention and personal management. ICU/Critical care attestation Morning labs showed normal white count of 6.5 however neutrophil predominance. Procalcitonin was obtained severely elevated at 40. Liver enzymes remain elevated with bilirubin 2.6, AST and ALT 369 and 29 respectively along with elevated alk phos of 553. Kidney function at baseline for patient but elevated with BUN 25, creatinine 1.6. Blood pressure began to drop this morning necessitating increased fluid resuscitation. Patient altered and confused. Ammonia level obtained, less than 9. Concern for cholangitis. Increased Zosyn frequency to every 6 hours with 3.375 g. Patient taken for ERCP with stones extracted and rk pus removed from bile duct. Stent placed. Escalated care to stepdown due to high risk for decompensation in the setting of cholangitis along with patient's other comorbidities including Parkinson's, CKD, diabetes. Prognosis guarded. Continues to require close inpatient monitoring. Repeat CBC, CMP, magnesium, lipase, amylase, and procalcitonin ordered for the morning. This patient is critically ill with 35 minutes devoted solely to this patient managing life/organ supporting interventions that required physician assessment. This includes time spent making adjustments in ventilator settings, IV fluid administration, titration of pressors, adjustments of medications, discussion of patient with consultants and other care providers as well as updating patient and/or family (if patient by virtue of his/her condition is unable to participate in decision making). This does not include time spent performing separately billed procedures. Time is not concurrent with that of other providers. Critical care time: 30 - 74 mins [facility] Critical Care Exam Physical Exam Vital signs: Temp Pulse Resp BP Pulse Ox O2 Del Method 97.4 F L 82 16 106/53 L 94 L Room Air 08/24/24 13:50 08/24/24 15:00 08/24/24 15:00 08/24/24 15:00 08/24/24 15:00 08/24/24 15:00 Constitutional Constitutional: Present mild distress, thin, chronically ill appearing and somnolent Routine HEENT Exam Head: Present normocephalic Eye: Present EOMI and PERRL ENT: Present mucous membranes moist Routine Respiratory Exam Respiratory: Present rhonchi; Absent respiratory distress, wheezes or crackles Routine Cardiovascular Exam Cardiovascular: Present RRR Routine Abdominal Exam Abdominal: Present soft and tenderness (Most prominent in right upper quadrant) Routine Neurological Exam Neurological: Present altered mental status
[2024-08-24] MEDS: humaLOG 100 UNITS/ML 10ML VIAL (SSI) SUBCUT (15:35)
[2024-08-24 16:08] LABS: POC Glucose,Bedside 204 (70-110)
[2024-08-24] MEDS: VANCOMYCIN/WATER FOR INJ (PEG) 1.5 GM/300 ML PIGGYBACK IV (19:44)
[2024-08-24] MEDS: VANCOMYCIN CONSULT REQUEST 1 EACH NOTAPPLIC (19:44)
[2024-08-25] VITALS (25 sets, daily range): BP systolic 107–152; BP diastolic 51–102; PULSE 58–83; RESP 10–21; TEMP 36.3–37.4; O2SAT 94–100; BMI 26.0
[2024-08-25] MEDS: PIPERACILLIN/TAZO 3.375 GM in 0.9 % SODIUM CHLORIDE 50 ML IV ×4 (01:05→19:50)
--- NOTE | 2024-08-25 03:25 | EXP.EVENT.NO ---
pt sundowning overnight attempting to get out of bed and won't listen to verbal suggestion at bedside from myself or nursing. refusing to take PO meds. Will give 4mg IM haldol x1 then re-eval. d/c zofran PRN since starting haldol and start compazine PRN nausea/vomiting.
[2024-08-25] MEDS: HALOPERIDOL LACTATE 5 MG/ML VIAL 4 MG IM (03:27)
[2024-08-25] MEDS: diphenhydrAMINE 50MG/ML VIAL 50 MG IV (03:44)
[2024-08-25] MEDS: LACTATED RINGERS 1000ML 1,000 ML 100 ML IV ×2 (04:19→15:20)
[2024-08-25 05:53] LABS: Basophils % 0.1 % (0.1-2.0); Eosinophils % 0.1 % (0.1-12.0); Hematocrit 28.9 % (42.0-52.0); Hemoglobin 9.8 g/dL (14.1-18.0); Lymphocytes # 0.6 K/mm3 (0.7-4.5); Lymphocytes % 4.6 % (10-50); Mean Corpuscular HGB Conc 33.9 g/dL (31.8-35.4); Mean Corpuscular Hemoglobin 32.6 pg (27.0-31.2); Mean Corpuscular Volume 95.9 fl (80-94); Mean Platelet Volume 10.2 fl (7.4-10.4); Monocytes # 0.6 K/mm3 (0.1-1.0); Monocytes % 4.8 % (1.7-9.3); Neutrophils # 12.1 K/mm3 (1.8-7.8); Neutrophils % 90.3 % (37.0-80.0); Platelet Count 117 K/mm3 (142-424); Red Blood Count 3.01 M/mm3 (4.60-6.20); Red Cell Distribution Width 14.7 % (11.5-17.5); White Blood Count 13.4 K/mm3 (4.8-10.8)
[2024-08-25 05:57] LABS: MANUAL DIFFERENTIAL MANUAL DIFFERENTIAL (MANUAL DIFF)
[2024-08-25 06:04] LABS: Amylase 53 U/L (30-110); Lactic Acid 1.6 mmol/L (0.7-2.1); Lipase 54 U/L (23-300)
--- NOTE | 2024-08-25 06:08 | PC.NURSE ---
Alert to self. Incontinent, uses purewick. Patient became agitated and tried to get up out of bed and would not follow commands, Dr. Cast to bedside, orders carried out per nov. Room air throughout the night. Bed alarm on. Call light in reach.
[2024-08-25 07:28] LABS: POC Glucose,Bedside 77 (70-110)
--- NOTE | 2024-08-25 07:45 | EXP.PN ---
Subjective *Date: 08/25/24 *Time: 07:45 Interval history: Yesterday obtunded and today awake and alert but very disoriented. Trying to climb out of bed. No abdominal complaints. Exam Data for Last 24 hours Vital signs and Labs for Last 24 Hours: Temp Pulse Resp BP Pulse Ox O2 Del Method 99.4 F 78 16 129/76 98 Room Air 08/25/24 04:00 08/25/24 06:00 08/25/24 06:00 08/25/24 06:00 08/25/24 06:00 08/25/24 06:48 Laboratory Results - last 24 hr 08/24/24 06:53: Procalcitonin 40.0 H 08/24/24 08:39: Troponin I 0.02 08/24/24 11:01: Ammonia < 9 L 08/24/24 11:27: POC Glucose 201 H 08/24/24 15:30: POC Glucose 204 H 08/25/24 05:43: WBC 13.4 H D, RBC 3.01 L, Hgb 9.8 L, Hct 28.9 L, MCV 95.9 H, MCH 32.6 H, MCHC 33.9, RDW 14.7, Plt Count 117 L, MPV 10.2, Neut % (Auto) 90.3 H, Lymph % (Auto) 4.6 L, [place] % (Auto) 4.8, Eos % (Auto) 0.1, Baso % (Auto) 0.1, Neut # (Auto) 12.1 H, Lymph # (Auto) 0.6 L, [place] # (Auto) 0.6, Eos # (Auto) 0.0, Baso # (Auto) 0.0, Lactate 1.6, Amylase 53, Lipase 54 08/25/24 06:14: POC Glucose 77 I & O for Last 24 hours: Intake & Output 08/22/24 08/23/24 08/24/24 08/25/24 23:59 23:59 23:59 23:59 Intake Total 2138 180 / 180 Output Total 450 / 450 Balance 2138 -270 / -270 Weight 167 lb 14.4 oz 175 lb 11.2 oz Microbiology Reports for the Last 24 Hours: Microbiology 08/24/24 06:53 Blood Blood Culture - Preliminary 08/24/24 06:53 Blood Blood Culture - Preliminary Assessment and Plan *Assessment and plan (1) Acute cholangitis: Status: Acute Category: Medical Code(s): K83.09 - Other cholangitis (2) Choledocholithiasis: Status: Acute Category: Medical Code(s): K80.50 - Calculus of bile duct without cholangitis or cholecystitis without obstruction (3) Common bile duct dilation: Status: Acute Category: Medical Code(s): K83.8 - Other specified diseases of biliary tract (4) Hyperbilirubinemia: Status: Acute Category: Medical Code(s): E80.6 - Other disorders of bilirubin metabolism Plan 1. Choledocholithiasis with cholangitis?status post biliary clearance of stones and purulence with fully covered biliary Wallstent placed. White blood cell count elevated today. Amylase and lipase are normal today (53 and 54 respectively). I will await liver chemistries. The patient is clearly less obtunded today but very disoriented. Patient with Parkinson's and sundowning last evening and moved to ICU for closer observation.
[2024-08-25 07:48] LABS: Albumin Level 2.9 g/dl (3.5-5.0); Chloride 109 mmol/L (98-107); Potassium 5.2 mmoL/L (3.5-5.1); Sodium 134 mmol/L (136-145)
[2024-08-25 07:51] LABS: Alanine Aminotransferase 29 U/L (12-78); Albumin/Globulin Ratio 1.6 (1.1-1.8); Alkaline Phosphatase 299 U/L (38-126); Anion Gap 6.2 mEq/L (5-15); Aspartate Amino Transferase 195 U/L (17-59); Bilirubin,Total 3.1 mg/dl (0.2-1.3); Blood Urea Nitrogen 41 mg/dl (9-20); Carbon Dioxide 24 mmol/L (22.0-30.0); Creatinine Clearance Estimated 33 mL/min (50-200); Estimated Glomerular Filt Rate 29 ml/min (>60); GFR (African American) 35 ML/MIN (>60); Globulin 1.8 g/dL (1.3-3.2); Glucose 84 mg/dl (74-100); Total Protein,Serum 4.7 g/dl (6.3-8.2)
[2024-08-25 07:52] LABS: Magnesium 1.7 mg/dl (1.6-2.3)
--- NOTE | 2024-08-25 08:04 | EXP.PHA.CONS ---
Pharmacy Consult Date: 08/25/24 Time: 08:04 Referring provider: DR. CARTER Reason for Consult:: VANCOMYCIN DOSING Allergies Allergy/AdvReac Type Severity Reaction Status Date / Time mupirocin Allergy Rash Verified 08/24/24 12:12 Home Medications ?Medication ?Instructions ?Recorded ?Confirmed ?Type docusate sodium 50 mg capsule 100 mg PO DAILY 12/18/23 08/24/24 History simvastatin 20 mg tablet 20 mg PO HS 90 days #90 tabs 12/25/23 08/24/24 Rx pantoprazole 40 mg tablet,delayed 40 mg PO BID 06/18/24 08/24/24 History release carbidopa ER 50 mg-levodopa 200 mg 1 tab PO QID #120 tabs 06/24/24 08/24/24 Rx tablet,extended release aspirin 81 mg tablet,delayed 81 mg PO DAILY 07/08/24 08/24/24 History release (Adult Low Dose Aspirin) mecobalamin (vitamin B12) 1,000 1,000 mcg PO DAILY 07/08/24 08/24/24 History mcg lozenges allopurinol 100 mg tablet 100 mg PO DAILY 08/24/24 08/24/24 History entacapone 200 mg tablet 200 mg PO QID 08/24/24 08/24/24 History folic acid 1 mg tablet 1 mg PO DAILY 08/24/24 08/24/24 History furosemide 20 mg tablet 20 mg PO DAILYP PRN edema 08/24/24 08/24/24 History gabapentin 600 mg tablet 600 mg PO TID 08/24/24 08/24/24 History hydrocodone 10 mg-acetaminophen 1 tab PO Q4HP PRN Moderate Pain 08/24/24 08/24/24 History 325 mg tablet (Scale Score 5-6) New Prescriptions to Start Prescriptions: Height: 1.75 m Weight: 79.696 kg Laboratory Results:: Laboratory Results - last 24 hr 08/24/24 06:53: Procalcitonin 40.0 H 08/24/24 08:39: Troponin I 0.02 08/24/24 11:01: Ammonia < 9 L 08/24/24 11:27: POC Glucose 201 H 08/24/24 15:30: POC Glucose 204 H 08/25/24 05:43: WBC 13.4 H D, RBC 3.01 L, Hgb 9.8 L, Hct 28.9 L, MCV 95.9 H, MCH 32.6 H, MCHC 33.9, RDW 14.7, Plt Count 117 L, MPV 10.2, Neut % (Auto) 90.3 H, Lymph % (Auto) 4.6 L, [place] % (Auto) 4.8, Eos % (Auto) 0.1, Baso % (Auto) 0.1, Neut # (Auto) 12.1 H, Lymph # (Auto) 0.6 L, [place] # (Auto) 0.6, Eos # (Auto) 0.0, Baso # (Auto) 0.0, Lactate 1.6, Amylase 53, Lipase 54 08/25/24 06:14: POC Glucose 77 Medical History: Medical History (Updated 08/24/24 @ 12:21 by Timmy Sanchez II, MD) Thyroid nodule Enlarged thyroid Deviated septum Thyroid mass Healthcare maintenance Acute ischemic stroke History of TIA (transient ischemic attack) DM type 2 (diabetes mellitus, type 2) COPD (chronic obstructive pulmonary disease) GERD (gastroesophageal reflux disease) Single kidney Heart failure TIA (transient ischemic attack) Daytime somnolence Parkinson disease Assessment and Plan Assessment and plan all Dx Assessment and Plan for all problems:: Pharmacokinetic dosing service Objective: Patient: Floor: Age: 74 yo Serum creatinine: 1.6 mg/dL Height: 68.9 Inches Weight (kg): 79.7 Assessment: IBW (kg): 70.47 Dosing wt(kg): 79.7 Estimated Creatinine clearance (ml/min): 39.8 CRCL method: Cockcroft and Gault using ibw(default). Drug selected: Vancomycin Loading dose (mg): 0 Vd (liters): 63.8 (factor used: 0.8 L/kg) Arash (hr-1): 0.037 Half life (hrs): 18.73 Recommended dose: 1250 mg Interval: 24 hrs Infusion time (hrs): 2.0 Predicted peak (mcg/mL): 32.1 Predicted trough (mcg/mL): 14.22 Total body weight is being used for vancomycin dosing. Recommendations: Give Vancomycin 1250 mg q 24 hrs with an expected Cpeak of 32.1 mcg/ml and an expected Ctrough of 14.22 mcg/ml ----Vanco only - ignore for aminoglycosides----- CLvanco= 2.36 L/hr AUC 0-24 /DOREEN Data: DOREEN 0.5 mcg/mL: AUC/DOREEN: 1059.3 DOREEN 1.0 mcg/mL: AUC/DOREEN: 529.7 --------- DOREEN 1.5 mcg/mL: AUC/DOREEN: 353.1 DOREEN 2.0 mcg/mL: AUC/DOREEN: 264.8
[2024-08-25 08:41] LABS: Lymphocytes % 8 % (10-50); Neutrophils % 92 % (42-76); Total Cells Counted 100
[2024-08-25 08:42] LABS: Platelet Estimate Slight Decrease; RBC Morphology Normal
[2024-08-25] MEDS: CARBIDOPA/LEVODOPA CR 50/200MG TABLET 1 EACH PO ×3 (09:02→20:22)
--- NOTE | 2024-08-25 10:48 | P.PNANES_ITS ---
[facility] Anesthesia Record Part II Anesthesia Record Part II Discharge Time: 13:50 Destination: Surgical Day Care (OP Surgery) PACU nurse assessment reviewed?: Yes Patient Condition:: Good Anesthesia Complications:: None Swallowing reflex intact?: Yes Airway Patency: Patent Cyanosis?: No Blood Pressure: 108/56 SaO2: 100 Respiratory Rate: 16 Pulse Rate: 83 Temperature: 97.4 F Mental Status: Alert & Oriented Pain level:: 0 Nausea and/or vomitting:: None Intake, IV Amount: 0 Hydration: Adequate
[2024-08-25 16:53] LABS: POC Glucose,Bedside 91 (70-110)
--- NOTE | 2024-08-25 18:45 | PC.NURSE ---
Pt alert and oriented only to self. Pt tried removing his own IV when this nurse tried to wrap iv, pt became combative. mittens were put on pt and family was asked to come back in and sit with pt. MD was notified and an order for PRN ativan was ordered but not given. Pt fell asleep and has been calm and more alert after this episode. Diet was upgraded throughout shift he is tolerating this well and is now on a bland diabetic diet. Pt has now been sleeping most of shift. Call light in reach. Bed alarm on.
--- NOTE | 2024-08-25 19:43 | P.PN_ITS ---
Subjective *Date: 08/25/24 *Time: 23:33 Interval history: Patient sleeping on initial exam. Evaluated later after waking up from treatment from his overnight outburst. Appears ill and somewhat disoriented. Stable on room air. Tolerating p.o. intake. Afebrile. Blood pressure improving. Appears somewhat delirious but redirectable. Medical Exam Vital signs and Labs for Last 24 Hours: Vital Signs Temp Pulse Resp BP Pulse Ox O2 Del Method 08/25/24 19:00 Room Air 08/25/24 18:00 122/55 L 08/25/24 18:00 18 08/25/24 17:00 16 08/25/24 17:00 138/73 08/25/24 17:00 Room Air 08/25/24 16:01 145/62 H 08/25/24 16:01 18 08/25/24 16:00 60 08/25/24 16:00 14 08/25/24 15:00 Room Air 08/25/24 15:00 123/60 08/25/24 15:00 13 08/25/24 14:00 17 08/25/24 13:00 Room Air 08/25/24 13:00 21 08/25/24 13:00 137/67 08/25/24 12:42 141/73 H 08/25/24 12:42 15 08/25/24 12:00 70 08/25/24 12:00 16 08/25/24 11:01 16 08/25/24 11:01 146/59 H 08/25/24 11:00 Room Air 08/25/24 10:50 16 08/25/24 10:00 135/65 08/25/24 10:00 14 08/25/24 09:00 Room Air 08/25/24 09:00 13 08/25/24 09:00 127/59 L 08/25/24 08:01 131/102 H 08/25/24 08:01 17 08/25/24 08:00 70 08/25/24 08:00 Room Air 08/25/24 08:00 10 L 08/25/24 07:00 132/76 08/25/24 07:00 14 08/25/24 06:48 Room Air 08/25/24 06:00 129/76 08/25/24 06:00 12 08/25/24 06:00 78 16 129/76 98 Room Air 08/25/24 05:00 128/65 08/25/24 05:00 16 08/25/24 05:00 Room Air 08/25/24 04:00 133/80 08/25/24 04:00 19 08/25/24 04:00 76 08/25/24 04:00 99.4 F 74 16 128/65 100 Room Air 08/25/24 04:00 Room Air 08/25/24 03:00 12 08/25/24 03:00 131/73 08/25/24 03:00 Room Air 08/25/24 02:00 73 13 99 08/25/24 02:00 126/67 08/25/24 02:00 71 16 126/67 98 Room Air 08/25/24 01:01 12 08/25/24 01:01 137/70 08/25/24 01:00 Room Air 08/25/24 00:00 70 08/25/24 00:00 98.4 F 68 17 107/51 L 98 Room Air 08/25/24 00:00 107/51 L 08/25/24 00:00 70 18 97 08/25/24 00:00 98.4 F 68 18 107/51 L 97 Room Air 08/24/24 23:50 113/56 L 08/24/24 23:50 70 16 97 08/24/24 23:00 77 16 113/56 L 98 Room Air 08/24/24 23:00 109/57 L 08/24/24 23:00 77 20 98 08/24/24 23:00 Room Air 08/24/24 22:13 78 16 120/59 L 99 Room Air 08/24/24 22:00 78 15 100/42 L 99 08/24/24 21:00 Room Air 08/24/24 21:00 70 16 99/53 L 99 08/24/24 20:00 74 08/24/24 20:00 Room Air 08/24/24 20:00 117/57 L 08/24/24 20:00 75 22 98 Intake and Output 08/25/24 08/25/24 08/25/24 07:59 15:59 23:59 Intake Total 180 / 1590 360 / 1590 1050 / 1590 Output Total 450 / 1250 800 / 1250 Balance -270 / 340 360 / 340 250 / 340 Intake: Intake, Oral Amount 180 / 540 360 / 540 Intake, Total IV Amount 0 / 1050 1050 / 1050 Lactated Ringers 1000ML 1,000 1000 / 1000 ml @ 100 mls/hr IV .Q10H [facility] Rx #:[id number] Piperacillin/Tazo 3.375 gm In 0 50 / 50 .9 % Sodium Chloride 50 ml @ 100 mls/hr IV Q6H [facility] Rx#: [id number] Output: Output, Urine Amount 450 / 1250 800 / 1250 Other: Number of Unmeasured Voids 0 1 Weight 79.696 kg 79.696 kg Patient Weight 08/25/24 23:59 Weight 79.696 kg Laboratory Results - last 24 hr 08/25/24 05:43: WBC 13.4 H D, RBC 3.01 L, Hgb 9.8 L, Hct 28.9 L, MCV 95.9 H, MCH 32.6 H, MCHC 33.9, RDW 14.7, Plt Count 117 L, MPV 10.2, Neut % (Auto) 90.3 H, Lymph % (Auto) 4.6 L, [place] % (Auto) 4.8, Eos % (Auto) 0.1, Baso % (Auto) 0.1, Neut # (Auto) 12.1 H, Lymph # (Auto) 0.6 L, [place] # (Auto) 0.6, Eos # (Auto) 0.0, Baso # (Auto) 0.0, Total Counted 100, Neutrophils % (Manual) 92 H, Lymphocytes % (Manual) 8 L, Platelet Estimate Slight decrease, RBC Morphology Normal, Sodium 134 L, Potassium 5.2 H, Chloride 109 H, Carbon Dioxide 24, Anion Gap 6.2, BUN 41 H D, Creatinine 2.20 H D, Estimated Creat Clear 33, Estimated GFR 29 L, Est GFR ( Amer) 35 L D, Glucose 84, Lactate 1.6, Calcium 8.0 L, Magnesium 1.7, Total Bilirubin 3.1 H, AST 195 H D, ALT 29, Alkaline Phosphatase 299 H, Total Protein 4.7 L D, Albumin 2.9 L D, Globulin 1.8, Albumin/Globulin Ratio 1.6, Amylase 53, Lipase 54 08/25/24 06:14: POC Glucose 77 08/25/24 16:46: POC Glucose 91 I & O for Labs for Last 24 Hours: Intake & Output 08/22/24 08/23/24 08/24/24 08/25/24 23:59 23:59 23:59 23:59 Intake Total 2139 / 2319 1590 / 1590 Output Total 1250 / 1250 Balance 2138 / 9 340 / 340 Weight 76.158 kg 79.696 kg Microbiology Reports for the Last 24 Hours: Microbiology 08/24/24 06:53 Blood Blood Culture - Preliminary 08/24/24 06:53 Blood Blood Culture - Preliminary Constitutional: Present mild distress, average body habitus, chronically ill appearing and cooperative Head: Present atraumatic and normocephalic ENT: Present normal exam Neck: Present normal inspection Respiratory: Present rhonchi and normal respiratory effort; Absent accessory muscle use, wheezes or crackles Cardiac: Present Reg Rate and Rhythm GI: Present soft and tenderness (Right upper quadrant); Absent distention Extremities: Present normal inspection and full ROM Skin: Present intact; Absent erythema Neuro: Present Cranial Nerve 2-12 Intact, Grossly Intact, alert, awake and moves all extremities Assessment and Plan *Assessment and plan (1) Acute cholangitis: Status: Acute Category: Medical Code(s): K83.09 - Other cholangitis (2) Delirium: Status: Acute Category: Medical Code(s): R41.0 - Disorientation, unspecified (3) Common bile duct dilation: Status: Acute Category: Medical Code(s): K83.8 - Other specified diseases of biliary tract (4) Hyperbilirubinemia: Status: Acute Category: Medical Code(s): E80.6 - Other disorders of bilirubin metabolism (5) Abdominal pain: Status: Acute Category: Medical Code(s): R10.9 - Unspecified abdominal pain (6) Transaminitis: Status: Acute Category: Medical Code(s): R74.01 - Elevation of levels of liver transaminase levels (7) Acute on chronic renal failure: Problem Comment: Improved but needs follow-up with PCP Status: Resolved Qualifiers: Acute renal failure type: unspecified Chronic kidney disease stage 3 subtype: stage 3b (GFR 30-44) Category: Medical Code(s): N17.9 - Acute kidney failure, unspecified; N18.9 - Chronic kidney disease, unspecified (8) 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 GFR 30-59: Status: Acute Category: Medical Code(s): E10.22 - Type 1 diabetes mellitus with diabetic chronic kidney disease; N18.30 - Chronic kidney disease, stage 3 unspecified (9) Neuropathy: Status: Acute Category: Medical Code(s): G62.9 - Polyneuropathy, unspecified (10) Anemia: Status: Acute Qualifiers: Anemia type: unspecified type Qualified Code(s): D64.9 - Anemia, unsp ecified Category: Medical Code(s): D64.9 - Anemia, unspecified (11) HTN (hypertension): Status: Chronic Qualifiers: Hypertension type: essential hypertension Qualified Code(s): I10 - Essential (primary) hypertension Category: Medical Code(s): I10 - Essential (primary) hypertension (12) Gout: Status: Chronic Qualifiers: Chronicity: acute Gout etiology: other secondary cause Gout site: hand Laterality: right Qualified Code(s): 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, right hand Category: Medical Code(s): M10.9 - Gout, unspecified (13) HLD (hyperlipidemia): Status: Chronic Qualifiers: Hyperlipidemia type: other hyperlipidemia Qualified Code(s): E78.49 - Other hyperlipidemia Category: Medical Code(s): E78.5 - Hyperlipidemia, unspecified (14) Diastolic heart failure: Status: Chronic Qualifiers: Heart failure chronicity: chronic Qualified Code(s): I50.32 - Chronic diastolic (congestive) heart failure Category: Medical Code(s): I50.30 - Unspecified diastolic (congestive) heart failure (15) Parkinson disease: Status: Acute Category: Medical Code(s): G20.A1 - Parkinson's disease without dyskinesia, without mention of fluctuations (16) Choledocholithiasis: Status: Acute Category: Medical Code(s): K80.50 - Calculus of bile duct without cholangitis or cholecystitis without obstruction Plan 74-year-old [place] with past medical history of Parkinson's disease, hypertension, diabetes, CKD, CVD, anemia, gout, hyperlipidemia, diastolic heart failure. Patient presents complaining of abdominal discomfort after eating starting the day. Patient jaundice, with total bili 2.6, alk phos 553, AST 369 at time of admission. Patient admitted with choledocholithiasis. Dominick pus on ERCP with stent placement. Symptoms consistent with sepsis and cholangitis. He continues to require ICU level care. Continue broad-spectrum antibiotics. Repeat blood cultures today. GI continues to assist with care. Problems addressed as follows: Sepsis Cholangitis Choledocholithiasis: ? GI evaluated yesterday, status post ERCP with removal of stones. Had pus drained from common bile duct. Stent placed. Early cholangitis. White count elevated today to 13. Blood pressure improving after source control yesterday. -Continue Zosyn, added vancomycin yesterday afternoon. Blood cultures returned positive for multiple pathogens including Enterococcus and Klebsiella. Awaiting speciation and sensitivity. Repeat blood cultures today. -Poor p.o. intake, continue maintenance fluids with LR at 100 cc an hour. -Discussed case with GI today, continue antibiotics. Will advance diet. Plan to return for stent removal in the coming months. -Lipase and amylase normal today at 54 and 33 respectively. Repeat CBC, CMP, magnesium ordered for the morning. Parkinson's disease: Carbidopa/levodopa 4 times a day, caution with delirium medications due to risk for extraparametal symptoms and NMS Diabetes: Patient states he no longer requires diabetic medication at home. A1c historically less than 6 over the past year. twice daily AC Accu-Cheks with sliding scale insulin coverage if needed. CKD: Minimize use of nephrotoxic drugs Diastolic heart failure: Hold aspirin, Lasix in the setting of sepsis and ERCP. CVD: As listed and diastolic heart failure section Gout: Allopurinol 100 mg p.o. daily Hyperlipidemia: Simvastatin 20 mg p.o. daily Anemia: Serial CBCs daily PPx SCDs CODE STATUS full FEN: Advance to clears today.
[2024-08-25] MEDS: VANCOMYCIN HCL 1,000 MG in 0.9 % SODIUM CHLORIDE 250 ML 125 MG IV (20:24)
[2024-08-26] VITALS (16 sets, daily range): BP systolic 127–173; BP diastolic 64–95; PULSE 65–770; RESP 11–22; TEMP 36.6–38.6; O2SAT 92–96; BMI 26.4
[2024-08-26] MEDS: PIPERACILLIN/TAZO 3.375 GM in 0.9 % SODIUM CHLORIDE 50 ML IV ×4 (00:02→20:45)
[2024-08-26] MEDS: LACTATED RINGERS 1000ML 1,000 ML 100 ML IV (04:51)
[2024-08-26 06:16] LABS: POC Glucose,Bedside 86 (70-110)
--- NOTE | 2024-08-26 08:15 | EXP.PN ---
Subjective *Date: 08/26/24 *Time: 11:21 Interval history: Patient much more alert this morning and appropriate. He remembers me from before. He reports no abdominal pain unless he coughs. Exam Data for Last 24 hours Vital signs and Labs for Last 24 Hours: Temp Pulse Resp BP Pulse Ox O2 Del Method 97.9 F 75 20 170/64 H 94 L Room Air 08/26/24 04:00 08/26/24 06:00 08/26/24 06:00 08/26/24 06:00 08/26/24 06:00 08/26/24 06:52 Laboratory Results - last 24 hr 08/25/24 05:43: Total Counted 100, Neutrophils % (Manual) 92 H, Lymphocytes % (Manual) 8 L, Platelet Estimate Slight decrease, RBC Morphology Normal, Sodium 134 L, Potassium 5.2 H, Chloride 109 H, Carbon Dioxide 24, Anion Gap 6.2, BUN 41 H D, Creatinine 2.20 H D, Estimated Creat Clear 33, Estimated GFR 29 L, Est GFR ( Amer) 35 L D, Glucose 84, Calcium 8.0 L, Magnesium 1.7, Total Bilirubin 3.1 H, AST 195 H D, ALT 29, Alkaline Phosphatase 299 H, Total Protein 4.7 L D, Albumin 2.9 L D, Globulin 1.8, Albumin/Globulin Ratio 1.6 08/25/24 16:46: POC Glucose 91 08/26/24 06:09: POC Glucose 86 I & O for Last 24 hours: Intake & Output 08/23/24 08/24/24 08/25/24 08/26/24 23:59 23:59 23:59 23:59 Intake Total 2139 / 2319 1590 / 1640 905 / 905 Output Total 1650 / 1650 400 / 400 Balance 2139 / 2319 -60 / -10 505 / 505 Weight 167 lb 14.4 oz 175 lb 11.2 oz 178 lb 0.584 oz Microbiology Reports for the Last 24 Hours: Microbiology 08/24/24 06:53 Blood Blood Culture - Preliminary 08/24/24 06:53 Blood Blood Culture - Preliminary Assessment and Plan *Assessment and plan (1) Acute cholangitis: Status: Acute Category: Medical Code(s): K83.09 - Other cholangitis (2) Biliary sepsis: Status: Acute Category: Medical Code(s): K83.09 - Other cholangitis (3) Choledocholithiasis: Status: Acute Category: Medical Code(s): K80.50 - Calculus of bile duct without cholangitis or cholecystitis without obstruction (4) Acute delirium: Status: Acute Category: Medical Code(s): R41.0 - Disorientation, unspecified (5) Anemia of acute infection: Status: Acute Category: Medical Code(s): D64.9 - Anemia, unspecified Plan 1. Choledocholithiasis with cholangitis and biliary sepsis. The patient's symptoms of abdominal pain are gone. The patient's labs today show much improved liver chemistries with total bilirubin 1.5, ALT 20 and alkaline phosphatase 232. There is a steep decline and patient clinically better. We will need to repeat ERCP in 3 months with removal of the biliary stent. 2. Acute delirium beginning to resolve. I do suspect a combination of Parkinson's, age, sepsis, medication, dehydration all being factors. He is clinically improved. Labs today do show some electrolyte derangements as well as elevated BUN and creatinine but these are certainly improved and hopefully patient will see resolution with hydration and oral nutrition. 3. Anemia?suspect of acute infection. He has had a sharp decline in hemoglobin and hematocrit over the last 2 days with hemoglobin from 12.1 to 8.6 today. I suspect this is mostly from his biliary sepsis and hydration.
[2024-08-26 08:54] LABS: Chloride 111 mmol/L (98-107); Potassium 4.6 mmoL/L (3.5-5.1); Sodium 133 mmol/L (136-145)
[2024-08-26 08:57] LABS: Alanine Aminotransferase 20 U/L (12-78); Albumin/Globulin Ratio 1.4 (1.1-1.8); Alkaline Phosphatase 232 U/L (38-126); Anion Gap 3.6 mEq/L (5-15); Aspartate Amino Transferase 91 U/L (17-59); Bilirubin,Total 1.5 mg/dl (0.2-1.3); Blood Urea Nitrogen 32 mg/dl (9-20); Calcium 8.2 mg/dl (8.4-10.2); Carbon Dioxide 23 mmol/L (22.0-30.0); Creatinine Clearance Estimated 38 mL/min (50-200); Estimated Glomerular Filt Rate 35 ml/min (>60); GFR (African American) 42 ML/MIN (>60); Globulin 2.1 g/dL (1.3-3.2); Glucose 99 mg/dl (74-100); Magnesium 1.8 mg/dl (1.6-2.3); Total Protein,Serum 5.1 g/dl (6.3-8.2)
[2024-08-26] MEDS: CARBIDOPA/LEVODOPA CR 50/200MG TABLET 1 EACH PO ×3 (09:01→20:45)
[2024-08-26 09:07] LABS: Hematocrit 26.1 % (42.0-52.0); Hemoglobin 8.6 g/dL (14.1-18.0); Red Blood Count 2.69 M/mm3 (4.60-6.20); White Blood Count 10.5 K/mm3 (4.8-10.8)
[2024-08-26 09:08] LABS: Basophils % 0.4 % (0.1-2.0); Eosinophils # 0.1 K/mm3 (0.0-0.4); Eosinophils % 0.8 % (0.1-12.0); Lymphocytes # 0.6 K/mm3 (0.7-4.5); Lymphocytes % 5.8 % (10-50); Mean Platelet Volume 11.2 fl (7.4-10.4); Monocytes # 0.3 K/mm3 (0.1-1.0); Monocytes % 2.8 % (1.7-9.3); Neutrophils # 9.3 K/mm3 (1.8-7.8); Platelet Count 102 K/mm3 (142-424); Red Cell Distribution Width 13.2 % (11.5-17.5)
[2024-08-26 09:10] LABS: MANUAL DIFFERENTIAL MANUAL DIFFERENTIAL (MANUAL DIFF)
[2024-08-26] MEDS: GABAPENTIN 600MG TABLET 600 MG PO ×3 (09:50→20:45)
[2024-08-26 10:17] LABS: Eosinophils % 2 % (0-3); Lymphocytes % 8 % (10-50); Monocytes % 2 % (2-9); Neutrophils % 88 % (42-76); RBC Morphology Normal; Total Cells Counted 100
[2024-08-26 10:18] LABS: Platelet Estimate Slight Decrease
--- NOTE | 2024-08-26 11:00 | EXP.ACUTE.PN ---
Subjective *Date: 08/26/24 *Time: 13:00 Interval history: Patient more alert today. Oriented to self and place but still somewhat confused with waxing and waning agitation and delirium with staff. Answering questions appropriately. Abdominal pain improving on exam. Blood pressure improving. Afebrile. No nausea or vomiting. Still awaiting cultures. Medical Exam Vital signs and Labs for Last 24 Hours: Vital Signs Temp Pulse Pulse Resp BP BP Pulse Ox 08/26/24 21:43 101.5 F H 08/26/24 21:00 08/26/24 20:00 08/26/24 20:00 101.1 F H 92 H 18 171/83 H 95 08/26/24 18:00 99 F 68 19 164/76 H 92 L 08/26/24 16:00 99 F 68 17 164/76 H 92 L 08/26/24 14:00 65 16 147/73 H 95 08/26/24 13:00 08/26/24 12:00 770 H 08/26/24 12:00 68 21 155/73 H 93 L 08/26/24 11:00 08/26/24 10:01 74 16 96 08/26/24 10:01 173/92 H 08/26/24 10:00 72 21 93 L 08/26/24 09:00 08/26/24 09:00 162/88 H 08/26/24 09:00 72 22 94 L 08/26/24 08:00 74 08/26/24 08:00 77 94 L 08/26/24 08:00 15 08/26/24 08:00 166/82 H 08/26/24 07:01 75 16 94 L 08/26/24 07:01 160/64 H 08/26/24 06:52 08/26/24 06:00 75 20 170/64 H 94 L 08/26/24 04:52 08/26/24 04:00 78 08/26/24 04:00 97.9 F 70 18 140/95 H 94 L 08/26/24 04:00 08/26/24 03:00 08/26/24 02:00 73 11 L 152/81 H 95 08/26/24 01:00 08/26/24 00:00 66 08/26/24 00:00 98.7 F 69 16 127/64 94 L O2 Del Method 08/26/24 21:43 08/26/24 21:00 Room Air 08/26/24 20:00 Room Air 08/26/24 20:00 Room Air 08/26/24 18:00 Room Air 08/26/24 16:00 Room Air 08/26/24 14:00 08/26/24 13:00 Room Air 08/26/24 12:00 08/26/24 12:00 08/26/24 11:00 Room Air 08/26/24 10:01 08/26/24 10:01 08/26/24 10:00 08/26/24 09:00 Room Air 08/26/24 09:00 08/26/24 09:00 08/26/24 08:00 08/26/24 08:00 Room Air 08/26/24 08:00 08/26/24 08:00 08/26/24 07:01 08/26/24 07:01 08/26/24 06:52 Room Air 08/26/24 06:00 Room Air 08/26/24 04:52 Room Air 08/26/24 04:00 08/26/24 04:00 Room Air 08/26/24 04:00 Room Air 08/26/24 03:00 Room Air 08/26/24 02:00 Room Air 08/26/24 01:00 Room Air 08/26/24 00:00 08/26/24 00:00 Room Air Intake and Output 08/26/24 08/26/24 08/26/24 07:59 15:59 23:59 Intake Total 905 / 1025 120 / 1025 Output Total 400 / 575 175 / 575 0 / 575 Balance 505 / 450 -55 / 450 0 / 450 Intake: Intake, Oral Amount 120 / 120 Intake, Total IV Amount 905 / 905 Lactated Ringers 1000ML 1,000 805 / 805 ml @ 100 mls/hr IV .Q10H [facility] Rx #:[id number] Piperacillin/Tazo 3.375 gm In 0 100 / 100 .9 % Sodium Chloride 50 ml @ 100 mls/hr IV Q6H [facility] Rx#: [id number] Output: Output, Urine Amount 400 / 575 175 / 575 0 / 575 Other: Number of Unmeasured Voids 0 0 1 Number of Bowel Movements 1 Weight 80.756 kg 80.75 kg Patient Weight 12/18/24 23:59 Weight 80.75 kg Laboratory Results - last 24 hr 08/26/24 06:09: POC Glucose 86 08/26/24 08:26: WBC 10.5, RBC 2.69 L, Hgb 8.6 L, Hct 26.1 L, MCV 97.0 H, MCH 32.0 H, MCHC 33.0, RDW 13.2, Plt Count 102 L, MPV 11.2 H, Neut % (Auto) 89.0 H, Lymph % (Auto) 5.8 L, [place] % (Auto) 2.8, Eos % (Auto) 0.8, Baso % (Auto) 0.4, Neut # (Auto) 9.3 H, Lymph # (Auto) 0.6 L, [place] # (Auto) 0.3, Eos # (Auto) 0.1, Baso # (Auto) 0.0, Total Counted 100, Neutrophils % (Manual) 88 H, Lymphocytes % (Manual) 8 L, Monocytes % (Manual) 2, Eosinophils % (Manual) 2, Platelet Estimate Slight decrease, RBC Morphology Normal, Sodium 133 L, Potassium 4.6, Chloride 111 H, Carbon Dioxide 23, Anion Gap 3.6 L, BUN 32 H, Creatinine 1.90 H, Estimated Creat Clear 38, Estimated GFR 35 L, Est GFR ( Amer) 42 L, Glucose 99, Calcium 8.2 L, Magnesium 1.8, Total Bilirubin 1.5 H, AST 91 H D, ALT 20 D, Alkaline Phosphatase 232 H, Total Protein 5.1 L, Albumin 3.0 L, Globulin 2.1, Albumin/Globulin Ratio 1.4 08/26/24 11:06: POC Glucose 99 08/26/24 20:45: POC Glucose 83 I & O for Labs for Last 24 Hours: Intake & Output 08/23/24 08/24/24 08/25/24 08/26/24 23:59 23:59 23:59 23:59 Intake Total 2139 / 2319 1590 / 1640 1025 / 1025 Output Total 1650 / 1650 575 / 575 Balance 2138 / 2318 -60 / -10 450 / 450 Weight 76.158 kg 79.696 kg 80.75 kg Microbiology Reports for the Last 24 Hours: Microbiology 08/24/24 06:53 Blood Blood Culture - Preliminary Gram Negative Rods 08/24/24 06:53 Blood Blood Culture - Preliminary Gram Negative Rods 08/25/24 09:36 Blood Blood Culture - Preliminary NO GROWTH AFTER 24 HOURS 08/25/24 09:40 Blood Blood Culture - Preliminary NO GROWTH AFTER 24 HOURS Constitutional: Present no acute distress, average body habitus, chronically ill appearing and cooperative Head: Present atraumatic and normocephalic ENT: Present normal exam Neck: Present normal inspection Respiratory: Present rhonchi and normal respiratory effort; Absent accessory muscle use, wheezes or crackles Cardiac: Present Reg Rate and Rhythm GI: Present soft and tenderness (Right upper quadrant, interval improvement); Absent distention Extremities: Present normal inspection and full ROM Skin: Present intact; Absent erythema Neuro: Present Cranial Nerve 2-12 Intact, Grossly Intact, alert, awake and moves all extremities Comment:: Oriented to self and place Assessment and Plan *Assessment and plan (1) Acute cholangitis: Status: Acute Category: Medical Code(s): K83.09 - Other cholangitis (2) Delirium: Status: Acute Category: Medical Code(s): R41.0 - Disorientation, unspecified (3) Common bile duct dilation: Status: Acute Category: Medical Code(s): K83.8 - Other specified diseases of biliary tract (4) Hyperbilirubinemia: Status: Acute Category: Medical Code(s): E80.6 - Other disorders of bilirubin metabolism (5) Abdominal pain: Status: Acute Category: Medical Code(s): R10.9 - Unspecified abdominal pain (6) Transaminitis: Status: Acute Category: Medical Code(s): R74.01 - Elevation of levels of liver transaminase levels (7) Acute on chronic renal failure: Problem Comment: Improved but needs follow-up with PCP Status: Resolved Qualifiers: Acute renal failure type: unspecified Chronic kidney disease stage 3 subtype: stage 3b (GFR 30-44) Category: Medical Code(s): N17.9 - Acute kidney failure, unspecified; N18.9 - Chronic kidney disease, unspecified (8) 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 GFR 30-59: Status: Acute Category: Medical Code(s): E10.22 - Type 1 diabetes mellitus with diabetic chronic kidney disease; N18.30 - Chronic kidney disease, stage 3 unspecified (9) Neuropathy: Status: Acute Category: Medical Code(s): G62.9 - Polyneuropathy, unspecified (10) Anemia: Status: Acute Qualifiers: Anemia type: unspecified type Qualified Code(s): D64.9 - Anemia, unspecified Category: Medical Code(s): D64.9 - Anemia, unspecified (11) HTN (hypertension): Status: Chronic Qualifiers: Hypertension type: essential hypertension Qualified Code(s): I10 - Essential (primary) hypertension Category: Medical Code(s): I10 - Essential (primary) hypertension (12) Gout: Status: Chronic Qualifiers: Gout site: hand Gout etiology: other secondary cause Chronicity: acute Laterality: right Qualified Code(s): 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, right hand Category: Medical Code(s): M10.9 - Gout, unspecified (13) HLD (hyperlipidemia): Status: Chronic Qualifiers: Hyperlipidemia type: other hyperlipidemia Qualified Code(s): E78.49 - Other hyperlipidemia Category: Medical Code(s): E78.5 - Hyperlipidemia, unspecified (14) Diastolic heart failure: Status: Chronic Qualifiers: Heart failure chronicity: chronic Qualified Code(s): I50.32 - Chronic diastolic (congestive) heart failure Category: Medical Code(s): I50.30 - Unspecified diastolic (congestive) heart failure (15) Parkinson disease: Status: Acute Category: Medical Code(s): G20.A1 - Parkinson's disease without dyskinesia, without mention of fluctuations (16) Choledocholithiasis: Status: Acute Category: Medical Code(s): K80.50 - Calculus of bile duct without cholangitis or cholecystitis without obstruction Plan 74-year-old [place] with past medical history of Parkinson's disease, hypertension, diabetes, CKD, CVD, anemia, gout, hyperlipidemia, diastolic heart failure. Patient presents complaining of abdominal discomfort after eating starting the day. Patient jaundice, with total bili 2.6, alk phos 553, AST 369 at time of admission. Patient admitted with choledocholithiasis. Dominick pus on ERCP with stent placement. Symptoms consistent with sepsis and cholangitis. He continues to require ICU level care. Continue broad-spectrum antibiotics. Repeat blood cultures today. GI continues to assist with care. Problems addressed as follows: Sepsis Cholangitis Choledocholithiasis: ? GI evaluated with ERCP on 216. White count improved to 10.5. Hemoglobin down to 8.6 however. Concern for some anemia secondary to sepsis. - kidney function marginally better with improvement in creatinine to 1.9, down from 2.2. Patient appears to be close to his baseline range BUN 32. Repeat CBC, CMP, magnesium ordered for the morning. - Discussed case with gastroenterology, labs showing improvement. Continue antibiotics. Will need repeat ERCP in 3 months with removal of biliary stent. -Continue Zosyn and Comycin for broad coverage. Still awaiting speciation and sensitivity. PCR shows Enterococcus, E. coli, Klebsiella. -Given improvement in blood pressure, discontinue maintenance fluids. Advance diet as tolerated. . Having acute delirium in setting of sepsis. Will avoid antipsychotics and Benadryl due to risk for EPS and NMS. Ativan 2 mg IV as needed every 6 hours for agitation Parkinson's disease: Carbidopa/levodopa 4 times a day, caution with delirium medications due to risk for extraparametal symptoms and NMS Diabetes: Patient states he no longer requires diabetic medication at home. A1c historically less than 6 over the past year. twice daily AC Accu-Cheks with sliding scale insulin coverage if needed. CKD: Minimize use of nephrotoxic drugs Diastolic heart failure: Hold aspirin, Lasix in the setting of sepsis and ERCP. CVD: As listed and diastolic heart failure section Gout: Allopurinol 100 mg p.o. daily Hyperlipidemia: Simvastatin 20 mg p.o. daily Anemia: Serial CBCs daily Resume home hydrocodone for pain 10 mg every 4 hours as needed. Discontinue morphine. PPx SCDs CODE STATUS full FEN: Advance as tolerated
[2024-08-26 11:14] LABS: POC Glucose,Bedside 99 (70-110)
--- NOTE | 2024-08-26 11:47 | PC.NURSE ---
mittens in place due to pt pulling/ removing heart monitor, o2 sensor, clothing and attempting to removed IV.
[2024-08-26] MEDS: MORPHINE 4MG/ML SYRINGE 4 MG IV (12:48)
--- NOTE | 2024-08-26 13:52 | HMH.PTEV ---
Physical Therapy Evaluation Rehab PT IP Evaluation Start: 08/26/24 11:25 Freq: ONCE Status: Active Protocol: Document 08/26/24 13:40 PANFILO (Rec: 08/26/24 13:52 PANFILO [id number]) Subjective/History History History Per H&P: Mr. Maravilla is a 74 -year-old [place] admitted for common bile duct obstruction and total bili 2.6 , alk phos 553, AST 369 at time of admission. CAT scan shows dilated common bile duct with probable choledocholithiasis. The patient did have cholecystectomy 3 years ago with Nathen Carl MD here at [facility]). The patient is starting to have some mild decline in cognitive status with mild hypotension and signs of possible early cholangitis. ERCP is performed for clearance of the biliary tree urgently. Subjective Subjective Pt's in room upon arrival and assisted with providing social history. Pt oriented x 4. Pt lives in a single-story home with 3 steps inside to get to living room. Pt usually IND with mobility using cane or RW. Pt's is available to assist as needed but not able to provide much physical assistance. Pt recently stopped driving. Pt pleasantly agreeable to PT mobility assessment. New diagnosis of cancer in past 12 No months? Rehab PT IP Eval Objective Appearance Patient Behavior Appropriate,Cooperative Patient Orientation Person,Place,Birthday Difficulty following instructions none Speech Pattern Clear Ambulation Patient Able to Ambulate No Balance Ability to Arise Unable Sitting Balance Steady, safe Standing Balance Unsteady Dynamic Sitting Balance Ability Good Dynamic Standing Balance Ability Poor Transfers Bed Transfer Ability Moderate x 2 (50% assist) Sit to Stand Bed Transfer Ability Moderate x 2 (50% assist) Rehab PT IP prob,goals,plan Problems Date of Evaluation: 08/26/24 PT IP Problems Bed Mobility,Transfers,Gait, Balance,Safety Rehab Potential Rehab Potential Good Equipment Needs Assistive Devices Rolling / Wheeled Walker Plan PT Intervention Plan Bed Mobility,Transfers,Gait, Balance,Safety,Therapeutic Exercise Other Intervention Plan 1-2 times PT Plan Frequency Daily Duration LOS Discharge Goals Bed Transfer Ability Moderate x 1 (50% assist) Sit to Stand Chair Transfer Ability Moderate x 1 (50% assist) Discharge Plan PT Discharge Plan Initial physical therapy evaluation performed. Patient presents below baseline at this time in functional mobility, transfers, and strength. Pt not safe to return home at this time d/t current level of functional mobility. PT recommending short-term rehabilitation stay upon d/c from [facility]. Pt would benefit from skilled PT while at [facility] to prevent further functional decline and maximize safety with mobility. Eval Complexity Eval Charge Codes 07991 - Moderate Complexity PHYSICIAN CERTIFICATION: I certify the specified therapy services for Hung Maravilla are required, authorized, and reviewed every 30 days.
--- NOTE | 2024-08-26 13:55 | HMH.OTEV ---
OT Inpatient Evaluation Rehab OT IP Evaluation Start: 08/26/24 11:25 Freq: ONCE Status: Active Protocol: [facility]24 [facility] (Rec: 08/26/24 13:54 [facility] [id number]) Rehab OT IP Assessment Subjective History Pt oriented x 3 on arrival. Pt admitted on 08/24/24 due to Abdominal pain and hyperbillirubinemia. History and physical: Mr. Maravilla is a 74-year-old [place]/[employer] admitted for common bile duct obstruction and total bili 2.6, alk phos 553, AST 369 at time of admission. CAT scan shows dilated common bile duct with probable choledocholithiasis. The patient did have cholecystectomy 3 years ago with Nathen Carl MD here at [facility]). The patient is starting to have some mild decline in cognitive status with mild hypotension and signs of possible early cholangitis. ERCP is performed for clearance of the biliary tree urgently. Subjective Prior to being in the hospital , pt lived at home with his . present at the time of evaluation. Pt explains normally he is able to complete all ADLs independently. He does use a cane during functional transfers. He is able to complete simple IADLs such as cooking independently. However, he is unable to complete heavier household tasks. Pt has not driven in one month. Objective Patient Orientation Person,Place,Birthday Right Upper Extremity Gross ROM Min Limitation <25% Left Upper Extremity Gross ROM Min Limitation <25% Shoulder ROM Limitations Muscle Weakness Elbow ROM Limitations Muscle Weakness Wrist Limitations of Range of Motion Muscle Weakness Bed Mobility bed mobility-scooting,bed mobility - supine/sit Assist Level Moderate x 2 (50% assist) Transfer Training Sit/Stand Transfer Assist Level Moderate x 2 (50% assist) Rehab OT IP prob,goals,plan Problems Date of Evaluation: 08/26/24 OT IP Problems Bed Mobility,Transfers,Balance ,Self care,Safety Rehab Potential Rehab Potential Good Equipment Needs Assistive Devices Rolling / Wheeled Walker Plan OT intervention Plan Bed Mobility,Transfers,Balance ,Self care,Safety,Therapeutic Exercise OT Plan Frequency Daily Duration LOS Discharge Goals Bed Mobility Ability Assistance x1 Sit to Stand Chair Transfer Ability Moderate x 1 (50% assist) Chair Transfer Ability Moderate x 1 (50% assist) Chair Transfer Technique Sit to/from Ambulatory Chair Transfer Assistive Devices Rolling Walker Feeding Ability Assist with Tray Set Up Lower Body Dressing Ability Moderate Assistance Upper Body Dressing Ability Minimal Assistance Bathing Ability Moderate Assistance Performing Toilet Hygiene Ability Moderate Assistance Overall Commode/Toilet Transfer Ability Moderate Assistance Commode/Toilet Transfer Technique Sit to/from Ambulatory Commode/Toilet Transfer Assistive Raised Toilet Seat,Grab Bars Devices Oral Care Assist Minimal Assistance Decrease in Endurance Yes Discharge Plan OT Discharge Plan Pt will continue to be seen for OT services while at [facility]. Pt would benefit most from short term rehab at SNF following hospital stay. Continued skilled therapy is important in order for patient to improve strength, safety, endurance, ADL independence, and functional transfers to reach PLOF. Eval Complexity Eval Charge Codes 79362 - Moderate Complexity PHYSICIAN CERTIFICATION: I certify the specified therapy services for Hung Maravilla are required, authorized, and reviewed every 30 days.
[2024-08-26] MEDS: LORazepam 2MG/ML VIAL 2 MG IV (16:44)
--- NOTE | 2024-08-26 16:44 | PC.NURSE ---
Patient became agitated and was trying to pinch, bite and hit nursing staff. RN gave 2 mg lorazepam IV as ordered. notified.
[2024-08-26] MEDS: ACETAMINOPHEN 325MG TAB 650 MG PO (20:45)
[2024-08-26 20:51] LABS: POC Glucose,Bedside 83 (70-110)
[2024-08-26] MEDS: VANCOMYCIN HCL 1,000 MG in 0.9 % SODIUM CHLORIDE 250 ML 125 MG IV (21:11)
[2024-08-26] MEDS: guaiFENesin 200MG/10ML SYRUP UDC 200 MG PO (23:33)
[2024-08-26] MEDS: MORPHINE 2MG/ML SYRINGE 2 MG IV (23:34)
--- NOTE | 2024-08-26 23:43 | PC.NURSE ---
Contacted Dr. Cast with concerns of pt condition, only responds to commands. Pt c/o pain and has a persistent cough. HS meds were given PO and pt cough has continued since administration of meds. IV pain medication and robitussin given at this time.
[2024-08-27] VITALS (11 sets, daily range): BP systolic 132–160; BP diastolic 60–82; PULSE 81–101; RESP 18–24; TEMP 37.2–39.7; O2SAT 90–99; BMI 25.9
[2024-08-27] MEDS: PIPERACILLIN/TAZO 3.375 GM in 0.9 % SODIUM CHLORIDE 50 ML IV (00:51)
[2024-08-27] MEDS: SODIUM CHLORIDE 0.9% 10ML VIAL 10 ML IV (01:39)
[2024-08-27] MEDS: LORazepam 2MG/ML VIAL 2 MG IV (01:39)
[2024-08-27 01:46] LABS: Vancomycin,Peak 21.4 ug/ml (11-39)
--- NOTE | 2024-08-27 01:51 | XR_ITS ---
PROCEDURE INFORMATION: Exam: XR Chest Exam date and time: 08/27/2024 1:55 AM Age: 74 years old Clinical indication: Shortness of breath; Additional info: SOB, resp distress TECHNIQUE: Imaging protocol: Radiologic exam of the chest. Views: 1 view. COMPARISON: CT ANGIO CHEST PE PROTOCOL 08/24/2024 3:03 AM FINDINGS: Lungs: Mild chronic appearing interstitial opacities. No consolidation. Pleural spaces: Unremarkable. No pleural effusion. No pneumothorax. Heart/Mediastinum: Unremarkable. No cardiomegaly. Bones/joints: Unremarkable. IMPRESSION: No acute findings.
--- NOTE | 2024-08-27 01:53 | EXP.EVENT.NO ---
Patient with some respiratory distress overnight. Ordered ABG, chest x-ray, and DuoNebs x 1. I am extremely familiar with this patient and I admitted this patient a few days ago for choledocholithiasis management. Patient is status post ERCP during this hospitalization with positive blood cultures. Patient currently on IV vancomycin/cefepime.
[2024-08-27 02:14] LABS: ABG Base Excess -3.8 mmol/L (-2.4-2.3); ABG HCO3 20.5 mmhg (22.0-26.0); ABG Oxygen Saturation 92 % (90-100); ABG PCO2 31.3 mmhg (35.0-45.0); ABG PH 7.43 mmol/L (7.35-7.45); ABG TCO2 21.5 mmhg (23-27)
[2024-08-27] MEDS: IPRATROPIUM/ALBUTEROL 3 ML NEB IH ×2 (02:22→17:13)
[2024-08-27] MEDS: FUROSEMIDE 40MG/4ML VIAL 20 MG IV ×2 (02:27→02:47)
--- NOTE | 2024-08-27 03:25 | PC.NURSE ---
RESP CARE NOTE: Pt NT suctioned at this time per Dr. Cast. A small amount of cream colored sputum was removed.
--- NOTE | 2024-08-27 03:27 | PC.NURSE ---
2142: Pt temp 101.5, pt treated per NOV. 0150:Dr. Cast contacted d/t pt change in condition. crackles heard in the right upper lobe, pt RR 24, O2 initially 84% upon assessment, 2L applied. Pt now sating 94%. chest x-ray , ABG, cultures ordered. 021:Contacted Segun Jerome with results, new orders for lasix. 0300: Dr Cast at bedside, new orders for deep suction, RT notified. Minimal sputum obtained. 399: Pt temp 103.5 Ax, Contacted Dr. Cast, new orders for toradol, meropenem. New IV access in Left FA. Active cooling started, 414:Pt rectal temp 101.9 at this time. Pt positioned for comfort, call light in reach.
[2024-08-27] MEDS: KETOROLAC 30MG/ML VIAL 15 MG IM (04:05)
[2024-08-27] MEDS: MEROPENEM 1 GM in 0.9 % SODIUM CHLORIDE 100 ML IV ×2 (04:37→16:05)
[2024-08-27 04:58] LABS: POC Glucose,Bedside 103 (70-110)
[2024-08-27 05:05] LABS: Hematocrit 28.4 % (42.0-52.0); Hemoglobin 9.4 g/dL (14.1-18.0); Mean Corpuscular HGB Conc 33.1 g/dL (31.8-35.4); Mean Corpuscular Hemoglobin 32.8 pg (27.0-31.2); Platelet Count 92 K/mm3 (142-424); Red Blood Count 2.87 M/mm3 (4.60-6.20); Red Cell Distribution Width 13.2 % (11.5-17.5); White Blood Count 7.6 K/mm3 (4.8-10.8)
[2024-08-27 05:06] LABS: Basophils % 0.1 % (0.1-2.0); Lymphocytes # 0.1 K/mm3 (0.7-4.5); Lymphocytes % 1.6 % (10-50); Mean Platelet Volume 11.1 fl (7.4-10.4); Monocytes # 0.2 K/mm3 (0.1-1.0); Monocytes % 2.4 % (1.7-9.3); Neutrophils # 7.1 K/mm3 (1.8-7.8); Neutrophils % 94.3 % (37.0-80.0)
[2024-08-27 05:07] LABS: MANUAL DIFFERENTIAL MANUAL DIFFERENTIAL (MANUAL DIFF)
[2024-08-27 05:11] LABS: Albumin Level 3.3 g/dl (3.5-5.0); Chloride 110 mmol/L (98-107); Potassium 4.3 mmoL/L (3.5-5.1); Sodium 136 mmol/L (136-145)
[2024-08-27 05:13] LABS: Lactic Acid 1.5 mmol/L (0.7-2.1)
[2024-08-27 05:14] LABS: Alanine Aminotransferase 20 U/L (12-78); Albumin/Globulin Ratio 1.4 (1.1-1.8); Alkaline Phosphatase 233 U/L (38-126); Anion Gap 9.3 mEq/L (5-15); Aspartate Amino Transferase 55 U/L (17-59); Bilirubin,Total 1.5 mg/dl (0.2-1.3); Blood Urea Nitrogen 25 mg/dl (9-20); Calcium 8.3 mg/dl (8.4-10.2); Carbon Dioxide 21 mmol/L (22.0-30.0); Creatinine Clearance Estimated 40 mL/min (50-200); Estimated Glomerular Filt Rate 37 ml/min (>60); GFR (African American) 45 ML/MIN (>60); Globulin 2.3 g/dL (1.3-3.2); Glucose 109 mg/dl (74-100); Magnesium 1.8 mg/dl (1.6-2.3); Total Protein,Serum 5.6 g/dl (6.3-8.2)
[2024-08-27 05:27] LABS: Lymphocytes % 4 % (10-50); Neutrophils % 96 % (42-76); Total Cells Counted 100
[2024-08-27 05:28] LABS: Anisocytosis 1+; RBC Morphology Normal
[2024-08-27 06:06] LABS: Procalcitonin 10.4 ng/mL (0.0-2.0)
[2024-08-27 07:57] LABS: Adenovirus,PCR Not Detected (NotDetected); Bordetella Pertussis Not Detected (NotDetected); Chlamydophila Pneumoniae, PCR Not Detected (NotDetected); Coronavirus 229E Not Detected (NotDetected); Coronavirus NL63 Not Detected (NotDetected); Coronavirus OC43 Not Detected (NotDetected); Coronovirus HKU1,PCR Not Detected (NotDetected); Human Metapneumovirus Not Detected (NotDetected); Influenza A, PCR Not Detected (NotDetected); Influenza AH1, 2009 Not Detected (NotDetected); Influenza AH1, PCR Not Detected (NotDetected); Influenza AH3,PCR Not Detected (NotDetected); Influenza B, PCR Not Detected (NotDetected); Mycoplasma Pneumoniae, PCR Not Detected (NotDetected); Parainfluenza 1, PCR Not Detected (NotDetected); Parainfluenza 2, PCR Not Detected (NotDetected); Parainfluenza 3, PCR Not Detected (NotDetected); Parainfluenza 4, PCR Not Detected (NotDetected); Respiratory Syncytial Virus Not Detected (NotDetected); Rhinovirus/Enterovirus Not Detected (NotDetected)
[2024-08-27 09:46] LABS: Coronavirus 19, PCR Detected (NotDetected)
[2024-08-27 10:50] LABS: POC Glucose,Bedside 109 (70-110)
[2024-08-27] MEDS: ACETAMINOPHEN 1,000 MG/100 ML ML 400 MG IV ×2 (12:37→20:52)
--- NOTE | 2024-08-27 12:51 | SW/DCPLANNER ---
Addendum entered by [facility] 08/31/24 12:53: Carmella w/ [facility] called and stated that she can accept patient today SNF level of care. Per MD patient will discharge today after speech eval. Carmella stated no cut off time for admission at their facility. I will call and update patient's . Addendum entered by [facility] 08/31/24 12:11: is agreeable to placement at [facility] SNF level of care tomorrow. Addendum entered by [facility] 08/31/24 11:48: Carmella w/ [facility] can accept this patient SNF level of care tomorrow. I have updated patient/ and MD. Addendum entered by [facility] 08/31/24 11:18: [facility]ia [facility] is unable to accept this patient. I will update MD, patient and . Addendum entered by [facility] 08/31/24 07:36: Updated patient information has been faxed to [facility] this AM. Per MD patient is medically stable for discharge. is debating between [facility] (pending acceptance) vs [facility] (accepted). Addendum entered by [facility] 08/28/24 14:30: Carmella w/ [facility] stated that she can accept this patient on Saturday due to needing a private room. I have updated patient/ and MD. [facility] has also requested updates Saturday morning. Addendum entered by [facility] 08/28/24 13:14: Carmella w/ [facility] stated that she can accept this patient if she can arrange a private room. Carmella will follow up w/ me regarding private room. I called and updated patient's . stated that she will be back to hospital this evening and would like to discuss rehab w/ patient since he is now alert and oriented. stated that if patient is agreeable w/ her she will be agreeable to [facility]. I will continue to follow up w/ Carmella, patient/ and MD. I have updated MD regarding situation. Addendum entered by [facility] 08/28/24 10:35: [facility] is reviewing patient information. Addendum entered by [facility] 08/27/24 15:04: [facility]/ [facility] is not able to accept patient due to COVID positive (only takes 7 days post positive test w/ no symptoms). Addendum entered by Reema Malone 08/27/24 14:18: is also agreeable to the following facilities: [facility], [facility], [facility] and [facility]. I will fax information to all facilities. Addendum entered by [facility] [place] 08/27/24 14:11: Per [facility] w/ [facility] she is not able to accept this patient. Addendum entered by Re[facility] [place] 08/27/24 13:18: Piper w/ [facility] does not have any beds at this time. Original Note: Due to patient not being alert and oriented I spoke w/ his . was present at bedside this AM. and I discussed plans once patient is medically stable for discharge. PT/OT evaluated patient and recommended SNF level of care at time of discharge. stated that she feels patient will improve prior to discharge and not need placement. is agreeable for patient information to be faxed to SNF facilities in [facility] at this time. [facility]. I will follow up once patient information is reviewed. Discharge date is unknown at this time.
--- NOTE | 2024-08-27 15:15 | PC.NURSE ---
Pt. is confused and not very responsive today as yesterday per notes and family members, medications oral held and md. agree, now npo, temp of 102.8 rectal at 11:51 and iv Tylenol given, purewick in place and turn every two hours, bed alarm active.
[2024-08-27 16:08] LABS: POC Glucose,Bedside 117 (70-110)
[2024-08-27 20:44] LABS: POC Glucose,Bedside 135 (70-110)
--- NOTE | 2024-08-27 21:47 | EXP.PN ---
Subjective *Date: 08/27/24 *Time: 21:47 Interval history: Very drowsy and confused today, likely from sepsis, COVID, fevers, and Ativan. Will dc ativan and treat fevers aggressively. Exam Data for Last 24 hours Vital signs and Labs for Last 24 Hours: Temp Pulse Resp BP Pulse Ox O2 Del Method O2 Flow Rate 99.4 F 101 H 18 140/72 93 L Room Air 2 08/27/24 20:00 08/27/24 20:00 08/27/24 20:00 08/27/24 20:00 08/27/24 20:00 08/27/24 21:00 08/27/24 17:26 Laboratory Results - last 24 hr 08/27/24 01:00: Vancomycin Peak 21.4 08/27/24 01:51: ABG pH 7.43, ABG pCO2 31.3 L, ABG pO2 63.0 L, ABG HCO3 20.5 L, ABG Total CO2 21.5 L, ABG O2 Saturation 92, ABG Base Excess -3.8 L 08/27/24 04:43: POC Glucose 103 08/27/24 04:45: WBC 7.6 D, RBC 2.87 L, Hgb 9.4 L, Hct 28.4 L, MCV 99.0 H, MCH 32.8 H, MCHC 33.1, RDW 13.2, Plt Count 92 L, MPV 11.1 H, Neut % (Auto) 94.3 H, Lymph % (Auto) 1.6 L, [place] % (Auto) 2.4, Eos % (Auto) 0.0 L, Baso % (Auto) 0.1, Neut # (Auto) 7.1, Lymph # (Auto) 0.1 L, [place] # (Auto) 0.2, Eos # (Auto) 0.0, Baso # (Auto) 0.0, Total Counted 100, Neutrophils % (Manual) 96 H, Lymphocytes % (Manual) 4 L, RBC Morphology Normal, Anisocytosis 1+, Sodium 136, Potassium 4.3, Chloride 110 H, Carbon Dioxide 21 L, Anion Gap 9.3, BUN 25 H, Creatinine 1.80 H, Estimated Creat Clear 40, Estimated GFR 37 L, Est GFR ( Amer) 45 L, Glucose 109 H, Lactate 1.5, Calcium 8.3 L, Magnesium 1.8, Total Bilirubin 1.5 H, AST 55 D, ALT 20, Alkaline Phosphatase 233 H, Total Protein 5.6 L, Albumin 3.3 L, Globulin 2.3, Albumin/Globulin Ratio 1.4, Procalcitonin 10.4 H 08/27/24 07:53: Chlamy pneumoniae PCR Not detected, Adenovirus (PCR) Not detected, B. pertussis DNA (PCR) Not detected, Coronavirus OC43 (PCR) Not detected, Coronavirus HKU1 (PCR) Not detected, Coronavirus 229E (PCR) Not detected, SARS-CoV-2 (PCR) Detected A, Coronavirus NL63 (PCR) Not detected, Human Metapneumovir PCR Not detected, Influenza A (H1) PCR Not detected, Influ A (H1N1/09) PCR Not detected, Influenza A (H3) PCR Not detected, Influenza Type A (PCR) Not detected, Influenza Type B (PCR) Not detected, M. pneumoniae (PCR) Not detected, Parainfluenza 1 (PCR) Not detected, Parainfluenza 2 (PCR) Not detected, Parainfluenza 3 (PCR) Not detected, Parainfluenza 4 (PCR) Not detected, RSV (PCR) Not detected, Entero/Rhino (PCR) Not detected 08/27/24 10:43: POC Glucose 109 08/27/24 16:03: POC Glucose 117 H 08/27/24 20:33: POC Glucose 135 H I & O for Last 24 hours: Intake & Output 08/24/24 08/25/24 08/26/24 08/27/24 23:59 23:59 23:59 23:59 Intake Total 2138 / 2318 1590 / 1640 1025 / 1025 100 / 100 Output Total 1650 / 1650 575 / 1025 1300 / 1300 Balance 2138 / 2318 -60 / -10 450 / 0 -1200 / -1200 Weight 76.158 kg 79.696 kg 80.75 kg 79.407 kg Microbiology Reports for the Last 24 Hours: Microbiology 08/24/24 06:53 Blood Blood Culture - Preliminary Escherichia coli 08/24/24 06:53 Blood Blood Culture - Preliminary Escherichia coli 08/25/24 09:40 Blood Blood Culture - Preliminary NO GROWTH AFTER 48 HOURS 08/25/24 09:36 Blood Blood Culture - Preliminary NO GROWTH AFTER 48 HOURS Constitutional Constitutional: no acute distress, average body habitus, chronically ill appearing and cooperative *Routine HEENT Exam Head: Present normocephalic and atraumatic Eye: Present EOMI and PERRL ENT: Present mucous membranes moist *Routine Neck Exam Neck: Present supple; Absent lymphadenopathy *Routine Respiratory Exam Respiratory: Present CTA bilaterally and normal respiratory effort; Absent respiratory distress, rhonchi, wheezes or crackles *Routine Cardiovascular Exam Cardiovascular: Present RRR *Routine Abdominal Exam Abdominal: Present soft and normoactive bowel sounds; Absent tenderness *Routine Rectal Exam Patient deferred: visual exam *Routine Exam Patient deferred: penile exam *Routine Extremities Exam Extremities: Absent cyanosis, clubbing or edema *Routine Skin Exam Skin: Present intact and warm; Absent rash *Routine Neurological Exam Neurological: Present alert, CN II-XII intact and moving all extremities; Absent altered mental status Comments: cogwheeling in UE Bilat. stable but shuffling gait (baseline) Assessment and Plan *Assessment and plan (1) Acute cholangitis: Status: Acute Category: Medical Code(s): K83.09 - Other cholangitis (2) Delirium: Status: Acute Category: Medical Code(s): R41.0 - Disorientation, unspecified (3) Common bile duct dilation: Status: Acute Category: Medical Code(s): K83.8 - Other specified diseases of biliary tract (4) Hyperbilirubinemia: Status: Acute Category: Medical Code(s): E80.6 - Other disorders of bilirubin metabolism (5) Abdominal pain: Status: Acute Category: Medical Code(s): R10.9 - Unspecified abdominal pain (6) Transaminitis: Status: Acute Category: Medical Code(s): R74.01 - Elevation of levels of liver transaminase levels (7) Acute on chronic renal failure: Problem Comment: Improved but needs follow-up with PCP Status: Resolved Qualifiers: Acute renal failure type: unspecified Chronic kidney disease stage 3 subtype: stage 3b (GFR 30-44) Category: Medical Code(s): N17.9 - Acute kidney failure, unspecified; N18.9 - Chronic kidney disease, unspecified (8) 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 GFR 30-59: Status: Acute Category: Medical Code(s): E10.22 - Type 1 diabetes mellitus with diabetic chronic kidney disease; N18.30 - Chronic kidney disease, stage 3 unspecified (9) Neuropathy: Status: Acute Category: Medical Code(s): G62.9 - Polyneuropathy, unspecified (10) Anemia: Status: Acute Qualifiers: Anemia type: unspecified type Qualified Code(s): D64.9 - Anemia, unspecified Category: Medical Code(s): D64.9 - Anemia, unspecified (11) HTN (hypertension): Status: Chronic Qualifiers: Hypertension type: essential hypertension Qualified Code(s): I10 - Essential (primary) hypertension Category: Medical Code(s): I10 - Essential (primary) hypertension (12) Gout: Status: Chronic Qualifiers: Gout site: hand Gout etiology: other secondary cause Chronicity: acute Laterality: right Qualified Code(s): 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, right hand Category: Medical Code(s): M10.9 - Gout, unspecified (13) HLD (hyperlipidemia): Status: Chronic Qualifiers: Hyperlipidemia type: other hyperlipidemia Qualified Code(s): E78.49 - Other hyperlipidemia Category: Medical Code(s): E78.5 - Hyperlipidemia, unspecified (14) Diastolic heart failure: Status: Chronic Qualifiers: Heart failure chronicity: chronic Qualified Code(s): I50.32 - Chronic diastolic (congestive) heart failure Category: Medical Code(s): I50.30 - Unspecified diastolic (congestive) heart failure (15) Parkinson disease: Status: Acute Category: Medical Code(s): G20.A1 - Parkinson's disease without dyskinesia, without mention of fluctuations (16) Choledocholithiasis: Status: Acute Category: Medical Code(s): K80.50 - Calculus of bile duct without cholangitis or cholecystitis without obstruction Plan 74-year-old [place] with past medical history of Parkinson's disease, hypertension, diabetes, CKD, CVD, anemia, gout, hyperlipidemia, diastolic heart failure. Patient presents complaining of abdominal discomfort after eating starting the day. Patient jaundice, with total bili 2.6, alk phos 553, AST 369 at time of admission. Patient admitted with choledocholithiasis. Dominick pus on ERCP with stent placement. Symptoms consistent with sepsis and cholangitis. He continues to require ICU level care. Continue broad-spectrum antibiotics. Repeat blood cultures today. GI continues to assist with care. Problems addressed as follows: Acute metabolic encephalopathy Sepsis Cholangitis Choledocholithiasis Bacteremia COVID-19 ? GI evaluated with ERCP on 08/24 with pus and 3 stone removal. White count improved to 7.6. - Will need repeat ERCP in 3 months with removal of biliary stent. - Intial Blood cultures PCR shows Enterococcus, E. coli, Klebsiella. Repeat NGTD. - Continue Zosyn and vanocmycin for broad coverage. Still awaiting speciation and sensitivity. PCR shows Enterococcus, E. coli, Klebsiella. - Patient encephalopathic today, tested positive for COVID with fever up to 103.2 improving with antipyretics. Also received Ativan contributing to his encephalopathy. - Discontinue Ativan, use Zyprexa short term as needed. - Anticipate discharge in 1-2 days as mentation improves, sensitivities result, and can work with PT/OT. Parkinson's disease: Carbidopa/levodopa 4 times a day, caution with delirium medications due to risk for extraparametal symptoms and NMS Diabetes: Patient states he no longer requires diabetic medication at home. A1c historically less than 6 over the past year. twice daily AC Accu-Cheks with sliding scale insulin coverage if needed. CKD: Minimize use of nephrotoxic drugs Diastolic heart failure: Hold aspirin, Lasix in the setting of sepsis and ERCP. CVD: As listed and diastolic heart failure section Gout: Allopurinol 100 mg p.o. daily Hyperlipidemia: Simvastatin 20 mg p.o. daily Anemia: Serial CBCs daily Resume home hydrocodone for pain 10 mg every 4 hours as needed. Discontinue morphine. PPx SCDs CODE STATUS full FEN: Advance as tolerated
[2024-08-27] MEDS: VANCOMYCIN HCL 1,000 MG in 0.9 % SODIUM CHLORIDE 250 ML 125 MG IV (22:27)
[2024-08-27] MEDS: PHA TO NURSING INSTRUCTION 1 EACH NOTAPPLIC (22:28)
[2024-08-27] MEDS: MORPHINE 2MG/ML SYRINGE 2 MG IV (22:45)
[2024-08-28] VITALS (9 sets, daily range): BP systolic 135–177; BP diastolic 64–97; PULSE 77–112; RESP 17–22; TEMP 36.7–38; O2SAT 90–99; BMI 24.7
--- NOTE | 2024-08-28 01:49 | EXP.EVENT.NO ---
Patient experienced pain overnight, and currently NPO. Given patient confusion over past few nights, trying to minimize use of as needed Ativan/morphine. However, since patient n.p.o., will administer cautiously morphine 2 mg IV push x 1 overnight and then reevaluate patient's pain issues.
[2024-08-28] MEDS: MEROPENEM 1 GM in 0.9 % SODIUM CHLORIDE 100 ML IV (03:37)
[2024-08-28] MEDS: ACETAMINOPHEN 1,000 MG/100 ML ML 400 MG IV (04:36)
[2024-08-28] MEDS: IPRATROPIUM/ALBUTEROL 3 ML NEB IH ×3 (05:47→19:04)
[2024-08-28 06:36] LABS: POC Glucose,Bedside 111 (70-110)
[2024-08-28 07:25] LABS: Albumin Level 3.1 g/dl (3.5-5.0); Chloride 115 mmol/L (98-107); Sodium 137 mmol/L (136-145)
[2024-08-28 07:27] LABS: Blood Urea Nitrogen 23 mg/dl (9-20); Creatinine Clearance Estimated 46 mL/min (50-200); Estimated Glomerular Filt Rate 46 ml/min (>60); GFR (African American) 55 ML/MIN (>60)
[2024-08-28 07:28] LABS: Alanine Aminotransferase 39 U/L (12-78); Albumin/Globulin Ratio 1.3 (1.1-1.8); Alkaline Phosphatase 213 U/L (38-126); Aspartate Amino Transferase 53 U/L (17-59); Bilirubin,Total 1.1 mg/dl (0.2-1.3); Calcium 8.3 mg/dl (8.4-10.2); Carbon Dioxide 22 mmol/L (22.0-30.0); Globulin 2.3 g/dL (1.3-3.2); Glucose 102 mg/dl (74-100); Total Protein,Serum 5.4 g/dl (6.3-8.2)
[2024-08-28 07:33] LABS: Hematocrit 27.4 % (42.0-52.0); Hemoglobin 8.9 g/dL (14.1-18.0); Mean Corpuscular HGB Conc 32.5 g/dL (31.8-35.4); Mean Corpuscular Hemoglobin 31.4 pg (27.0-31.2); Mean Corpuscular Volume 96.8 fl (80-94); Red Blood Count 2.83 M/mm3 (4.60-6.20); White Blood Count 5.9 K/mm3 (4.8-10.8)
[2024-08-28 07:34] LABS: Basophils % 0.3 % (0.1-2.0); Eosinophils % 0.2 % (0.1-12.0); Lymphocytes # 0.4 K/mm3 (0.7-4.5); Lymphocytes % 6.8 % (10-50); Mean Platelet Volume 11.4 fl (7.4-10.4); Monocytes # 0.4 K/mm3 (0.1-1.0); Monocytes % 6.4 % (1.7-9.3); Neutrophils # 5.1 K/mm3 (1.8-7.8); Neutrophils % 85.8 % (37.0-80.0); Platelet Count 89 K/mm3 (142-424); Red Cell Distribution Width 13.2 % (11.5-17.5)
[2024-08-28 07:36] LABS: MANUAL DIFFERENTIAL MANUAL DIFFERENTIAL (MANUAL DIFF)
--- NOTE | 2024-08-28 08:17 | EXP.PHA.CONS ---
Pharmacy Consult Date: 08/28/24 Time: 08:17 Referring provider: DR. PATTERSON Reason for Consult:: VANCOMYCIN TROUGH LEVEL Allergies Allergy/AdvReac Type Severity Reaction Status Date / Time mupirocin Allergy Rash Verified 08/24/24 12:12 Home Medications ?Medication ?Instructions ?Recorded ?Confirmed ?Type docusate sodium 50 mg capsule 100 mg PO DAILY 12/18/23 08/24/24 History simvastatin 20 mg tablet 20 mg PO HS 90 days #90 tabs 12/25/23 08/24/24 Rx pantoprazole 40 mg tablet,delayed 40 mg PO BID 06/18/24 08/24/24 History release carbidopa ER 50 mg-levodopa 200 mg 1 tab PO QID #120 tabs 06/24/24 08/24/24 Rx tablet,extended release aspirin 81 mg tablet,delayed 81 mg PO DAILY 07/08/24 08/24/24 History release (Adult Low Dose Aspirin) mecobalamin (vitamin B12) 1,000 1,000 mcg PO DAILY 07/08/24 08/24/24 History mcg lozenges allopurinol 100 mg tablet 100 mg PO DAILY 08/24/24 08/24/24 History entacapone 200 mg tablet 200 mg PO QID 08/24/24 08/24/24 History folic acid 1 mg tablet 1 mg PO DAILY 08/24/24 08/24/24 History furosemide 20 mg tablet 20 mg PO DAILYP PRN edema 08/24/24 08/24/24 History gabapentin 600 mg tablet 600 mg PO TID 08/24/24 08/24/24 History hydrocodone 10 mg-acetaminophen 1 tab PO Q4HP PRN Moderate Pain 08/24/24 08/24/24 History 325 mg tablet (Scale Score 5-6) New Prescriptions to Start Prescriptions: Height: 1.75 m Weight: 75.841 kg Laboratory Results:: Laboratory Results - last 24 hr 08/27/24 07:53: Chlamy pneumoniae PCR Not detected, Adenovirus (PCR) Not detected, B. pertussis DNA (PCR) Not detected, Coronavirus OC43 (PCR) Not detected, Coronavirus HKU1 (PCR) Not detected, Coronavirus 229E (PCR) Not detected, SARS-CoV-2 (PCR) Detected A, Coronavirus NL63 (PCR) Not detected, Human Metapneumovir PCR Not detected, Influenza A (H1) PCR Not detected, Influ A (H1N1/09) PCR Not detected, Influenza A (H3) PCR Not detected, Influenza Type A (PCR) Not detected, Influenza Type B (PCR) Not detected, M. pneumoniae (PCR) Not detected, Parainfluenza 1 (PCR) Not detected, Parainfluenza 2 (PCR) Not detected, Parainfluenza 3 (PCR) Not detected, Parainfluenza 4 (PCR) Not detected, RSV (PCR) Not detected, Entero/Rhino (PCR) Not detected 08/27/24 10:43: POC Glucose 109 08/27/24 16:03: POC Glucose 117 H 08/27/24 20:33: POC Glucose 135 H 08/27/24 20:34: Vancomycin Trough 13.0 H 08/28/24 05:21: POC Glucose 111 H 08/28/24 05:58: WBC 5.9, RBC 2.83 L, Hgb 8.9 L, Hct 27.4 L, MCV 96.8 H, MCH 31.4 H, MCHC 32.5, RDW 13.2, Plt Count 89 L, MPV 11.4 H, Neut % (Auto) 85.8 H, Lymph % (Auto) 6.8 L, [place] % (Auto) 6.4, Eos % (Auto) 0.2, Baso % (Auto) 0.3, Neut # (Auto) 5.1, Lymph # (Auto) 0.4 L, [place] # (Auto) 0.4, Eos # (Auto) 0.0, Baso # (Auto) 0.0, Sodium 137, Potassium 4.0, Chloride 115 H, Carbon Dioxide 22, Anion Gap 4.0 L, BUN 23 H, Creatinine 1.50 H, Estimated Creat Clear 46, Estimated GFR 46 L, Est GFR ( Amer) 55 L D, Glucose 102 H, Calcium 8.3 L, Magnesium 2.0 D, Total Bilirubin 1.1, AST 53, ALT 39 D, Alkaline Phosphatase 213 H, Total Protein 5.4 L, Albumin 3.1 L, Globulin 2.3, Albumin/Globulin Ratio 1.3 Medical History: Medical History (Updated 08/26/24 @ 11:23 by Timmy Sanchez II, MD) Thyroid nodule Enlarged thyroid Deviated septum Thyroid mass Healthcare maintenance Acute ischemic stroke History of TIA (transient ischemic attack) DM type 2 (diabetes mellitus, type 2) COPD (chronic obstructive pulmonary disease) GERD (gastroesophageal reflux disease) Single kidney Heart failure TIA (transient ischemic attack) Daytime somnolence Parkinson disease Assessment and Plan Assessment and plan all Dx Assessment and Plan for all problems:: BASED ON PATIENT FACTORS AND VANCOMYCIN TROUGH LEVEL OF 13.0, RECOMMEND CONTINUING CURRENT DOSE OF VANCOMYCIN 1,000MG EVERY 24 HOURS. PHARMACY WILL CONTINUE TO MONITOR AND WILL ADJUST DOSE APPROPRIATE. -KAYLEE SMITH, ZACHERYD
--- NOTE | 2024-08-28 08:42 | EXP.PHA.PN ---
Subjective *Date: 08/28/24 *Time: 08:42 Medical Exam Vital signs and Labs for Last 24 Hours: Vital Signs Temp Pulse Pulse Resp BP Pulse Ox O2 Del Method 08/28/24 08:00 98.0 F 87 20 135/64 99 Nasal Cannula 08/28/24 06:39 Nasal Cannula 08/28/24 05:49 95 H 08/28/24 05:49 95 H 08/28/24 05:49 97 Nasal Cannula 08/28/24 04:50 Nasal Cannula 08/28/24 03:44 100.4 F H 94 H 18 152/75 H 95 Nasal Cannula 08/28/24 03:00 Nasal Cannula 08/28/24 01:00 Nasal Cannula 08/28/24 00:00 99.4 F 98 H 17 161/84 H 95 Nasal Cannula 08/27/24 23:00 Nasal Cannula 08/27/24 21:00 Room Air 08/27/24 20:00 Room Air 08/27/24 20:00 99.4 F 101 H 18 140/72 93 L Room Air 08/27/24 18:00 99.1 F 08/27/24 17:26 Nasal Cannula 08/27/24 17:14 91 H 08/27/24 17:14 94 H 08/27/24 17:14 99 Nasal Cannula 08/27/24 16:12 Nasal Cannula 08/27/24 15:46 100.5 F H 86 20 132/77 99 Nasal Cannula 08/27/24 13:38 Nasal Cannula 08/27/24 11:59 Nasal Cannula 08/27/24 11:51 102.8 F H 100 H 22 160/74 H 94 L Nasal Cannula 08/27/24 11:00 Nasal Cannula 08/27/24 10:00 101.6 F H 08/27/24 09:00 Nasal Cannula O2 Flow Rate 08/28/24 08:00 2 08/28/24 06:39 1 08/28/24 05:49 08/28/24 05:49 08/28/24 05:49 2 08/28/24 04:50 1 08/28/24 03:44 1 08/28/24 03:00 1 08/28/24 01:00 1 08/28/24 00:00 1 08/27/24 23:00 1 08/27/24 21:00 08/27/24 20:00 08/27/24 20:00 08/27/24 18:00 08/27/24 17:26 2 08/27/24 17:14 08/27/24 17:14 08/27/24 17:14 2 08/27/24 16:12 2 08/27/24 15:46 2 08/27/24 13:38 2 08/27/24 11:59 2 08/27/24 11:51 2 08/27/24 11:00 2 08/27/24 10:00 08/27/24 09:00 2 Intake and Output 08/27/24 08/28/24 08/28/24 23:59 07:59 15:59 Intake Total 100 / 350 250 / 250 Output Total 300 / 1300 250 / 250 Balance -200 / -950 0 / 0 Intake: Intake, Oral Amount 0 / 0 Intake, Total IV Amount 100 / 350 250 / 250 Meropenem 1 gm In 0.9 % Sodium 100 / 100 Chloride 100 ml @ 100 mls/hr IV Q12H [facility] Rx#:[id number] Vancomycin HCl 1,000 mg In 0.9 250 / 250 % Sodium Chloride 250 ml @ 125 mls/hr IV Q24H [facility] Rx#:[id number] Output: Output, Urine Amount 300 / 1300 250 / 250 Other: Number of Unmeasured Voids 1 1 Number of Bowel Movements 1 Weight 75.841 kg 75.841 kg Patient Weight 08/28/24 23:59 Weight 75.841 kg Laboratory Results - last 24 hr 08/27/24 07:53: Chlamy pneumoniae PCR Not detected, Adenovirus (PCR) Not detected, B. pertussis DNA (PCR) Not detected, Coronavirus OC43 (PCR) Not detected, Coronavirus HKU1 (PCR) Not detected, Coronavirus 229E (PCR) Not detected, SARS-CoV-2 (PCR) Detected A, Coronavirus NL63 (PCR) Not detected, Human Metapneumovir PCR Not detected, Influenza A (H1) PCR Not detected, Influ A (H1N1/09) PCR Not detected, Influenza A (H3) PCR Not detected, Influenza Type A (PCR) Not detected, Influenza Type B (PCR) Not detected, M. pneumoniae (PCR) Not detected, Parainfluenza 1 (PCR) Not detected, Parainfluenza 2 (PCR) Not detected, Parainfluenza 3 (PCR) Not detected, Parainfluenza 4 (PCR) Not detected, RSV (PCR) Not detected, Entero/Rhino (PCR) Not detected 08/27/24 10:43: POC Glucose 109 08/27/24 16:03: POC Glucose 117 H 08/27/24 20:33: POC Glucose 135 H 08/27/24 20:34: Vancomycin Trough 13.0 H 08/28/24 05:21: POC Glucose 111 H 08/28/24 05:58: WBC 5.9, RBC 2.83 L, Hgb 8.9 L, Hct 27.4 L, MCV 96.8 H, MCH 31.4 H, MCHC 32.5, RDW 13.2, Plt Count 89 L, MPV 11.4 H, Neut % (Auto) 85.8 H, Lymph % (Auto) 6.8 L, [place] % (Auto) 6.4, Eos % (Auto) 0.2, Baso % (Auto) 0.3, Neut # (Auto) 5.1, Lymph # (Auto) 0.4 L, [place] # (Auto) 0.4, Eos # (Auto) 0.0, Baso # (Auto) 0.0, Sodium 137, Potassium 4.0, Chloride 115 H, Carbon Dioxide 22, Anion Gap 4.0 L, BUN 23 H, Creatinine 1.50 H, Estimated Creat Clear 46, Estimated GFR 46 L, Est GFR ( Amer) 55 L D, Glucose 102 H, Calcium 8.3 L, Magnesium 2.0 D, Total Bilirubin 1.1, AST 53, ALT 39 D, Alkaline Phosphatase 213 H, Total Protein 5.4 L, Albumin 3.1 L, Globulin 2.3, Albumin/Globulin Ratio 1.3 I & O for Labs for Last 24 Hours: Intake & Output 08/25/24 08/26/24 08/27/24 08/28/24 23:59 23:59 23:59 23:59 Intake Total 1590 / 1640 1025 / 1025 100 / 350 250 / 250 Output Total 1650 / 1650 575 / 1025 1300 / 1300 250 / 250 Balance -60 / -10 450 / 0 -1200 / -950 0 / 0 Weight 79.696 kg 80.75 kg 79.407 kg 75.841 kg Microbiology Reports for the Last 24 Hours: Microbiology 08/24/24 06:53 Blood Blood Culture - Preliminary Escherichia coli Enterococcus faecium (grp d) 08/27/24 04:45 Blood Blood Culture - Preliminary NO GROWTH AFTER 24 HOURS 08/27/24 04:45 Blood Blood Culture - Preliminary NO GROWTH AFTER 24 HOURS 08/24/24 06:53 Blood Blood Culture - Preliminary Escherichia coli 08/25/24 09:40 Blood Blood Culture - Preliminary NO GROWTH AFTER 48 HOURS 08/25/24 09:36 Blood Blood Culture - Preliminary NO GROWTH AFTER 48 HOURS The patient's infection will respond to the chosen ABx?: Yes (INITIAL BLOOD CX E FAECIUM - VANCO SENSITIVE, E COLI MEROPENEM SENSITIVE) Is the patient receiving the right drug, dose, and route?: Yes Could a more targeted ABx be ordered?: Yes (E. COLI SENSITIVE TO ROCEPHIN X2.) How long ABx needed (days)?: 7
[2024-08-28 12:11] LABS: POC Glucose,Bedside 101 (70-110)
[2024-08-28 14:33] LABS: Lymphocytes % 15 % (10-50); Monocytes % 4 % (2-9); Neutrophils % 81 % (42-76); Platelet Estimate Moderate Decrease; RBC Morphology Normal; Total Cells Counted 100
--- NOTE | 2024-08-28 15:48 | HMH.SLDYSPHA ---
Speech & Language Evaluation Speech/Language Dysphagia Evaluation Start: 08/28/24 15:42 Freq: ONCE Status: Active Protocol: Document 08/28/24 15:42 LOREEMARVINPING (Rec: 08/28/24 15:48 [id number]) Dysphagia Assess/Goals/Plan Assessment Date of Evaluation: 08/28/24 Evaluation Type Initial Certification Assessment/Problems aspiration concerns per MD order. Does Patient Qualify for Service Yes Qualify/Failure Comment Based on CSE results, pt would benefit from skilled speech therapy services to assess diet tolerance. Recommendations PHYSICIAN CERTIFICATION: The specified therapy services are required, authorized, and reviewed every 30 days. Pt will be seen # times/week 1 for # weeks 4 Diet Recommendations Mechanical Soft Liquid Type Recommendations Normal/Thin SL Swallow Guidelines Alt bite w/sip thru meal, Standard Aspiration Prec. Dysphagia Swallow Precautions/Strategies Small Bites and Sips,Alternate Liquids/Solids Plan Anticipate reaching STG in # weeks 2 Anticipate reaching LTG in # weeks 4 Pt/Guardian verbally ack understanding Yes of dx/prognosis/goals G -code Required No Education Instructions provided Discussed CCSE results, diet recommendations, and aspiration precautions/ compensatory strategies with pt, nursing, and care management all of which expressed understanding. Pt/Caregiver able to recall information Able to recall/restate Reinforcement needed No Speech & Language HPI History Present Illness Description of Patient Problem 74-year-old [place]/[employer] with past medical history of Parkinson's disease, hypertension, diabetes, CKD, CVD, anemia, gout, hyperlipidemia, diastolic heart failure. Patient presents complaining of abdominal discomfort after eating starting the day. Patient states abdominal discomfort started approximately 6 hours prior to ED presentation. Describes abdominal discomfort as 6/10, squeezing upper abdominal pain , worse after eating, occurring with nausea but denies vomiting. Patient has history of cholecystectomy, appendectomy and nephrectomy, yet CT abdomen/pelvis shows dilated common bile duct. Patient jaundice during my exam in ED denies fevers, chills, known sick contacts, recent travel. With total bili 2.6, alk phos 553, AST 369 at time of admission. Denies history of accidents or abdominal trauma recently. CXR results: FINDINGS: Lungs: Mild chronic appearing interstitial opacities. No consolidation. Pleural spaces: Unremarkable. No pleural effusion. No pneumothorax. Heart/Mediastinum: Unremarkable. No cardiomegaly. Bones/joints: Unremarkable. IMPRESSION: No acute findings. Rehab Services Assessed Speech therapy Language Primary Language Bahamian General Information General Current Food Consistancy NPO Dentition Poor Dentition Patient Orientation Person Ability to Follow Directions Good Dysphagia:Food Presentation Evaluation Food Type Pureed,Mechanical Soft,Liquid, Pudding Dysphagia Evaluation Summary Pt seen sitting upright in bed this afternoon for CSE. Extensive oral care provided prior to administering trials 2' NPO status. Pt exhibited wet cough at baseline per COVID dx. All bolus consistencies trialed x3 to assess for consistency and/or fatigue. No overt s/sxs of aspiration observed throughout CSE exhibited. Recommended to continue on MS/thin diet at this time. Bolus consistencies trialed include: thin liquids (via ice chip, spoonful of water, open cup/straw sip, and subsequent sips from open cup /straw), pudding, puree ( applesauce), and mechanical soft (nutrigrain bar.) Regulars not trialed 2' dentition. OPERATIONS TECHNICIAN will f/u for diet tolerance. Stroke Dysphagia Assessment PHYSICIAN CERTIFICATION: I certify the specified therapy services for Hung Maravilla are required, authorized, and reviewed every 30 days.
[2024-08-28] MEDS: CARBIDOPA/LEVODOPA CR 50/200MG TABLET 1 EACH PO ×2 (17:40→21:01)
--- NOTE | 2024-08-28 18:24 | PC.NURSE ---
Pt intermittently confused but has been more alert and oriented towards the end of this shift. he is on 1L NC. Pt has not been combative this shift. Speech did eval with pt and upgraded him to mech soft ground with this liquids. Pt did well taking PO meds this evening. Pt did not like the [facility] soft food and refused to eat most of it. Pt also worked with PT today but was an assist x2 just to soit on the side of the bed. Pt has been turned and repositioned. Small open area on coccyx with dressing in place. Family at bedside this evening. bed alarm on. pt resting comfortably in bed.
--- NOTE | 2024-08-28 20:50 | PC.NURSE ---
Addendum entered by Elza Rowe RN 08/29/24 04:00: Patient's called at this time to check in on the patient. Original Note: Late Entry (for 20:05): family member (Nicolasa Maravilla) called at 20:05 to check in on the patient.
[2024-08-28] MEDS: CEFTRIAXONE SODIUM 1 GM in 0.9 % SODIUM CHLORIDE 50 ML IV (21:00)
[2024-08-28] MEDS: CARVEDILOL 6.25MG TABLET 6.25 MG PO (21:00)
[2024-08-28] MEDS: GABAPENTIN 600MG TABLET 600 MG PO (21:00)
[2024-08-28 21:30] LABS: POC Glucose,Bedside 128 (70-110)
--- NOTE | 2024-08-28 21:37 | P.PN_ITS ---
Subjective *Date: 08/29/24 *Time: 21:37 Exam Data for Last 24 hours Vital signs and Labs for Last 24 Hours: Temp Pulse Resp BP Pulse Ox O2 Del Method O2 Flow Rate 100.2 F H 112 H 20 151/72 H 90 L Nasal Cannula 2 08/28/24 20:00 08/28/24 20:00 08/28/24 20:00 08/28/24 20:00 08/28/24 20:00 08/28/24 20:00 08/28/24 20:00 Laboratory Results - last 24 hr 08/27/24 20:34: Vancomycin Trough 13.0 H 08/28/24 05:21: POC Glucose 111 H 08/28/24 05:58: WBC 5.9, RBC 2.83 L, Hgb 8.9 L, Hct 27.4 L, MCV 96.8 H, MCH 31.4 H, MCHC 32.5, RDW 13.2, Plt Count 89 L, MPV 11.4 H, Neut % (Auto) 85.8 H, Lymph % (Auto) 6.8 L, [place] % (Auto) 6.4, Eos % (Auto) 0.2, Baso % (Auto) 0.3, Neut # (Auto) 5.1, Lymph # (Auto) 0.4 L, [place] # (Auto) 0.4, Eos # (Auto) 0.0, Baso # (Auto) 0.0, Total Counted 100, Neutrophils % (Manual) 81 H, Lymphocytes % (Manual) 15, Monocytes % (Manual) 4, Platelet Estimate Moderate decrease, RBC Morphology Normal, Sodium 137, Potassium 4.0, Chloride 115 H, Carbon Dioxide 22, Anion Gap 4.0 L, BUN 23 H, Creatinine 1.50 H, Estimated Creat Clear 46, Estimated GFR 46 L, Est GFR ( Amer) 55 L D, Glucose 102 H, Calcium 8.3 L, Magnesium 2.0 D, Total Bilirubin 1.1, AST 53, ALT 39 D, Alkaline Phosphatase 213 H, Total Protein 5.4 L, Albumin 3.1 L, Globulin 2.3, Albumin/Globulin Ratio 1.3 08/28/24 11:54: POC Glucose 101 08/28/24 21:18: POC Glucose 128 H I & O for Last 24 hours: Intake & Output 1208/26/24 08/27/24 08/28/24 23:59 23:59 23:59 23:59 Intake Total 1590 / 1640 1025 / 1025 100 / 350 730 / 730 Output Total 1650 / 1650 575 / 1025 1300 / 1300 850 / 850 Balance -60 / -10 450 / 0 -1200 / -950 -120 / -120 Weight 79.696 kg 80.75 kg 79.407 kg 75.841 kg Microbiology Reports for the Last 24 Hours: Microbiology 08/24/24 06:53 Blood Blood Culture - Preliminary Escherichia coli Enterococcus faecium (grp d) 08/27/24 04:45 Blood Blood Culture - Preliminary NO GROWTH AFTER 24 HOURS 08/27/24 04:45 Blood Blood Culture - Preliminary NO GROWTH AFTER 24 HOURS Constitutional Constitutional: no acute distress, average body habitus, chronically ill appearing and cooperative *Routine HEENT Exam Head: Present normocephalic and atraumatic Eye: Present EOMI and PERRL ENT: Present mucous membranes moist *Routine Neck Exam Neck: Present supple; Absent lymphadenopathy *Routine Respiratory Exam Respiratory: Present CTA bilaterally and normal respiratory effort; Absent respiratory distress, rhonchi, wheezes or crackles *Routine Cardiovascular Exam Cardiovascular: Present RRR *Routine Abdominal Exam Abdominal: Present soft and normoactive bowel sounds; Absent tenderness *Routine Rectal Exam Patient deferred: visual exam *Routine Exam Patient deferred: penile exam *Routine Extremities Exam Extremities: Absent cyanosis, clubbing or edema *Routine Skin Exam Skin: Present intact and warm; Absent rash *Routine Neurological Exam Neurological: Present alert, CN II-XII intact and moving all extremities; Absent altered mental status Comments: cogwheeling in UE Bilat. stable but shuffling gait (baseline) Assessment and Plan *Assessment and plan (1) Acute cholangitis: Status: Acute Category: Medical Code(s): K83.09 - Other cholangitis (2) Delirium: Status: Acute Category: Medical Code(s): R41.0 - Disorientation, unspecified (3) Common bile duct dilation: Status: Acute Category: Medical Code(s): K83.8 - Other specified diseases of biliary tract (4) Hyperbilirubinemia: Status: Acute Category: Medical Code(s): E80.6 - Other disorders of bilirubin metabolism (5) Abdominal pain: Status: Acute Category: Medical Code(s): R10.9 - Unspecified abdominal pain (6) Transaminitis: Status: Acute Category: Medical Code(s): R74.01 - Elevation of levels of liver transaminase levels (7) Acute on chronic renal failure: Problem Comment: Improved but needs follow-up with PCP Status: Resolved Qualifiers: Acute renal failure type: unspecified Chronic kidney disease stage 3 subtype: stage 3b (GFR 30-44) Category: Medical Code(s): N17.9 - Acute kidney failure, unspecified; N18.9 - Chronic kidney disease, unspecified (8) 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 GFR 30-59: Status: Acute Category: Medical Code(s): E10.22 - Type 1 diabetes mellitus with diabetic chronic kidney disease; N18.30 - Chronic kidney disease, stage 3 unspecified (9) Neuropathy: Status: Acute Category: Medical Code(s): G62.9 - Polyneuropathy, unspecified (10) Anemia: Status: Acute Qualifiers: Anemia type: unspecified type Qualified Code(s): D64.9 - Anemia, unspecified Category: Medical Code(s): D64.9 - Anemia, unspecified (11) HTN (hypertension): Status: Chronic Qualifiers: Hypertension type: essential hypertension Qualified Code(s): I10 - Essential (primary) hypertension Category: Medical Code(s): I10 - Essential (primary) hypertension (12) Gout: Status: Chronic Qualifiers: Chronicity: acute Gout etiology: other secondary cause Gout site: hand Laterality: right Qualified Code(s): 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, right hand Category: Medical Code(s): M10.9 - Gout, unspecified (13) HLD (hyperlipidemia): Status: Chronic Qualifiers: Hyperlipidemia type: other hyperlipidemia Qualified Code(s): E78.49 - Other hyperlipidemia Category: Medical Code(s): E78.5 - Hyperlipidemia, unspecified (14) Diastolic heart failure: Status: Chronic Qualifiers: Heart failure chronicity: chronic Qualified Code(s): I50.32 - Chronic diastolic (congestive) heart failure Category: Medical Code(s): I50.30 - Unspecified diastolic (congestive) heart failure (15) Parkinson disease: Status: Acute Category: Medical Code(s): G20.A1 - Parkinson's disease without dyskinesia, without mention of fluctuations (16) Choledocholithiasis: Status: Acute Category: Medical Code(s): K80.50 - Calculus of bile duct without cholangitis or cholecystitis without obstruction Plan 74-year-old [place]/[employer] with past medical history of Parkinson's disease, hypertension, diabetes, CKD, CVD, anemia, gout, hyperlipidemia, diastolic heart failure. Patient presents complaining of abdominal discomfort after eating sta rting the day. Patient jaundice, with total bili 2.6, alk phos 553, AST 369 at time of admission. Patient admitted with choledocholithiasis. Dominick pus on ERCP with stent placement. Symptoms consistent with sepsis and cholangitis. He continues to require ICU level care. Continue broad-spectrum antibiotics. Repeat blood cultures today. GI continues to assist with care. Problems addressed as follows: Acute metabolic encephalopathy Sepsis Cholangitis Choledocholithiasis Bacteremia COVID-19 ? GI evaluated with ERCP on 08/24 with pus and 3 stone removal. White count improved to 7.6. - Will need repeat ERCP in 3 months with removal of biliary stent. - Intial Blood cultures PCR shows Enterococcus, E. coli, Klebsiella. Repeat NGTD. - PCR shows Enterococcus, E. coli, Klebsiella. - Started ceftriaxone, discontinued Zosyn given sensitivies. Continue Vanc until enterococcus sensitivies result. - Improved mentation today, conversational. - PT/OT recommended SNF. - Patient and family would like to proceed with SNF placement, but would like for it to be in [place] such as [place]. - Case management assisting with placement. Parkinson's disease: Carbidopa/levodopa 4 times a day, caution with delirium medications due to risk for extraparametal symptoms and NMS Diabetes: Patient states he no longer requires diabetic medication at home. A1c historically less than 6 over the past year. twice daily AC Accu-Cheks with sliding scale insulin coverage if needed. CKD: Minimize use of nephrotoxic drugs Diastolic heart failure: Hold aspirin, Lasix in the setting of sepsis and ERCP. CVD: As listed and diastolic heart failure section Gout: Allopurinol 100 mg p.o. daily Hyperlipidemia: Simvastatin 20 mg p.o. daily Anemia: Serial CBCs daily Resume home hydrocodone for pain 10 mg every 4 hours as needed. Discontinue morphine. PPx SCDs CODE STATUS full FEN: Advance as tolerated
[2024-08-28] MEDS: VANCOMYCIN HCL 1,000 MG in 0.9 % SODIUM CHLORIDE 250 ML 125 MG IV (21:48)
--- NOTE | 2024-08-28 22:25 | PC.NURSE ---
At this time, Mira MATT was paged to obtain patient's pain medication order (hydrocodone to be resumed, morphine discontinuation). Patient reported having lots of pain in his legs and right hip this shift.
[2024-08-28] MEDS: HYDROCODONE/APAP 5/325 MG TABLET 2 TAB PO (22:30)
[2024-08-29] VITALS (9 sets, daily range): BP systolic 121–158; BP diastolic 57–84; PULSE 62–83; RESP 17–22; TEMP 36.6–37.6; O2SAT 90–96; BMI 25.2
--- NOTE | 2024-08-29 02:20 | PC.NURSE ---
Late Entry (for midnight): patient's oxygen flow was increased to 4 L via nasal cannula around midnight due to dropping oxygen saturations into the 80s (86% to 88%). At this time, patient's oxygen saturations have been maintaining 90% to 91%.
--- NOTE | 2024-08-29 04:40 | PC.NURSE ---
Addendum entered by Elza Rowe RN 08/29/24 05:35: SCDs not in place due to previous shift patient refusal and his reports of leg/hip pain this shift. Original Note: Patient was observed to be alert and oriented this shift; he was able to tell me his birthday and is aware of his surroundings. Patient's speech is garbled but has been appropriate. He was observed to be awake throughout the majority of the night. Patient was able to tell staff when he needed a drink of water and requested frequent repositioning. A heel protector was placed onto the patient's right foot due to report of discomfort. Patient's legs were elevated. He has reported having consistent discomfort throughout the night. Patient was also given [place] per MAR to help treat his pain. He was positioned onto the side of the bed with x2 assistance (of charge nurse); patient reported that this helped with his pain and stiffness. However, patient was noticed to be quite weak during moving and continues to report discomfort. Patient has a skin tear on his left anterior forearm and a pressure area on his coccyx. He also has bruising bilaterally on his arms and his skin is slightly yellowed. Patient has been assisted with drinking fluids this shift (assist feed); he has had adequate amounts of ice water and one Starry soda. He has complained of dry mucous membranes. Upon auscultation of his lungs, coarse crackling could be heard bilaterally. Bowel sounds are active. Patient has an intermittent, moist cough. Scheduled medications were administered as appropriately per MAR; patient has tolerated taking PO medications one pill at a time. A male purewick (changed twice this shift) has remained in place along with a brief per incontinence. Patient's urine was noticed to be a bright highlighter yellow. Tardive tongue movements and watery eyes were noted. Patient is currently tolerating 4 L of oxygen via nasal cannula with oxygen saturations > 90%. At this time, the patient is lying in bed without any further complaints. No acute changes noted thus far. Bed alarm on. Call light within reach. Airborne/contact precautions sign on door for COVID.
[2024-08-29 06:08] LABS: POC Glucose,Bedside 102 (70-110)
[2024-08-29] MEDS: IPRATROPIUM/ALBUTEROL 3 ML NEB IH ×3 (06:39→19:32)
[2024-08-29 07:31] LABS: Albumin Level 3.1 g/dl (3.5-5.0); Chloride 112 mmol/L (98-107); Sodium 137 mmol/L (136-145)
[2024-08-29 07:32] LABS: Eosinophils % 0.5 % (0.1-12.0); Hematocrit 27.6 % (42.0-52.0); Hemoglobin 9.1 g/dL (14.1-18.0); Lymphocytes % 9.2 % (10-50); Mean Corpuscular Hemoglobin 31.9 pg (27.0-31.2); Mean Corpuscular Volume 96.8 fl (80-94); Mean Platelet Volume 11.5 fl (7.4-10.4); Monocytes % 8.3 % (1.7-9.3); Neutrophils % 81.1 % (37.0-80.0); Platelet Count 89 K/mm3 (142-424); Red Blood Count 2.85 M/mm3 (4.60-6.20); Red Cell Distribution Width 13.1 % (11.5-17.5); White Blood Count 5.6 K/mm3 (4.8-10.8)
[2024-08-29 07:33] LABS: Basophils % 0.2 % (0.1-2.0); Lymphocytes # 0.5 K/mm3 (0.7-4.5); Monocytes # 0.5 K/mm3 (0.1-1.0); Neutrophils # 4.5 K/mm3 (1.8-7.8)
[2024-08-29 07:34] LABS: Alanine Aminotransferase 12 U/L (12-78); Alkaline Phosphatase 177 U/L (38-126); Aspartate Amino Transferase 52 U/L (17-59); Bilirubin,Total 0.9 mg/dl (0.2-1.3); Blood Urea Nitrogen 27 mg/dl (9-20); Carbon Dioxide 24 mmol/L (22.0-30.0); Creatinine Clearance Estimated 54 mL/min (50-200); Estimated Glomerular Filt Rate 54 ml/min (>60); GFR (African American) 65 ML/MIN (>60); Total Protein,Serum 5.5 g/dl (6.3-8.2)
[2024-08-29 07:35] LABS: Calcium 8.5 mg/dl (8.4-10.2); Glucose 100 mg/dl (74-100); Magnesium 2.1 mg/dl (1.6-2.3)
[2024-08-29 07:36] LABS: Albumin/Globulin Ratio 1.3 (1.1-1.8); Globulin 2.4 g/dL (1.3-3.2)
[2024-08-29] MEDS: CARVEDILOL 6.25MG TABLET 6.25 MG PO ×2 (08:18→20:05)
[2024-08-29] MEDS: CARBIDOPA/LEVODOPA CR 50/200MG TABLET 1 EACH PO ×3 (08:18→20:05)
[2024-08-29] MEDS: GABAPENTIN 600MG TABLET 600 MG PO ×3 (08:18→20:05)
[2024-08-29] MEDS: HYDROCODONE/APAP 5/325 MG TABLET 2 TAB PO ×2 (10:32→20:05)
[2024-08-29 10:48] LABS: POC Glucose,Bedside 134 (70-110)
[2024-08-29 16:03] LABS: Anion Gap 4.9 mEq/L (5-15); Potassium 3.9 mmoL/L (3.5-5.1)
[2024-08-29 16:29] LABS: POC Glucose,Bedside 137 (70-110)
--- NOTE | 2024-08-29 18:50 | PC.NURSE ---
pt supine in bed. 4l nc in place and tolerating well with sats >90%. pt has struggled with swallowing this shift, md aware. aspiration precautions in place. family to discuss likely rehab. pt complained of pain once this shift and was canine deputy per mar. no complaints at this time. call light within reach.
[2024-08-29] MEDS: CEFTRIAXONE SODIUM 1 GM in 0.9 % SODIUM CHLORIDE 50 ML IV (20:05)
[2024-08-29 20:55] LABS: POC Glucose,Bedside 114 (70-110)
[2024-08-29] MEDS: VANCOMYCIN HCL 1,000 MG in 0.9 % SODIUM CHLORIDE 250 ML 125 MG IV (21:40)
--- NOTE | 2024-08-29 22:00 | P.PN_ITS ---
Subjective *Date: 08/30/24 *Time: 21:47 Interval history: Waxing and waning in mentation due to hospital delirium, but overall doing well and conversational. Exam Data for Last 24 hours Vital signs and Labs for Last 24 Hours: Temp Pulse Resp BP Pulse Ox O2 Del Method O2 Flow Rate 99.7 F H 64 19 138/65 95 Nasal Cannula 3 08/29/24 20:00 08/29/24 20:52 08/29/24 20:00 08/29/24 20:00 08/29/24 20:00 08/29/24 20:53 08/29/24 20:53 Laboratory Results - last 24 hr 08/29/24 05:54: POC Glucose 102 08/29/24 06:49: WBC 5.6, RBC 2.85 L, Hgb 9.1 L, Hct 27.6 L, MCV 96.8 H, MCH 31.9 H, MCHC 33.0, RDW 13.1, Plt Count 89 L, MPV 11.5 H, Neut % (Auto) 81.1 H, Lymph % (Auto) 9.2 L, [place] % (Auto) 8.3, Eos % (Auto) 0.5, Baso % (Auto) 0.2, Neut # (Auto) 4.5, Lymph # (Auto) 0.5 L, [place] # (Auto) 0.5, Eos # (Auto) 0.0, Baso # (Auto) 0.0, Sodium 137, Potassium 3.9, Chloride 112 H, Carbon Dioxide 24, Anion Gap 4.9 L, BUN 27 H, Creatinine 1.30 H, Estimated Creat Clear 54, Estimated GFR 54 L, Est GFR ( Amer) 65, Glucose 100, Calcium 8.5, Magnesium 2.1, Total Bilirubin 0.9, AST 52, ALT 12 D, Alkaline Phosphatase 177 H, Total Protein 5.5 L, Albumin 3.1 L, Globulin 2.4, Albumin/Globulin Ratio 1.3 08/29/24 10:40: POC Glucose 134 H 08/29/24 16:17: POC Glucose 137 H 08/29/24 20:46: POC Glucose 114 H I & O for Last 24 hours: Intake & Output 08/26/24 08/27/24 08/28/24 08/29/24 23:59 23:59 23:59 23:59 Intake Total 1025 / 1025 100 / 350 1084 / 1584 1560 / 1560 Output Total 575 / 1025 1300 / 1300 850 / 850 400 / 400 Balance 450 / 0 -1200 / -950 234 / 734 1160 / 1160 Weight 80.75 kg 79.407 kg 75.841 kg 77.337 kg Microbiology Reports for the Last 24 Hours: Microbiology 08/25/24 09:40 Blood Blood Culture - Preliminary NO GROWTH AFTER 4 DAYS 08/25/24 09:36 Blood Blood Culture - Preliminary NO GROWTH AFTER 4 DAYS 08/27/24 04:45 Blood Blood Culture - Preliminary NO GROWTH AFTER 48 HOURS 08/27/24 04:45 Blood Blood Culture - Preliminary NO GROWTH AFTER 48 HOURS Constitutional Constitutional: no acute distress, average body habitus, chronically ill appearing and cooperative *Routine HEENT Exam Head: Present normocephalic and atraumatic Eye: Present EOMI and PERRL ENT: Present mucous membranes moist *Routine Neck Exam Neck: Present supple; Absent lymphadenopathy *Routine Respiratory Exam Respiratory: Present CTA bilaterally and normal respiratory effort; Absent respiratory distress, rhonchi, wheezes or crackles *Routine Cardiovascular Exam Cardiovascular: Present RRR *Routine Abdominal Exam Abdominal: Present soft and normoactive bowel sounds; Absent tenderness *Routine Rectal Exam Patient deferred: visual exam *Routine Exam Patient deferred: penile exam *Routine Extremities Exam Extremities: Absent cyanosis, clubbing or edema *Routine Skin Exam Skin: Present intact and warm; Absent rash *Routine Neurological Exam Neurological: Present alert, CN II-XII intact and moving all extremities; Absent altered mental status Comments: cogwheeling in UE Bilat. stable but shuffling gait (baseline) Assessment and Plan *Assessment and plan (1) Acute cholangitis: Status: Acute Category: Medical Code(s): K83.09 - Other cholangitis (2) Delirium: Status: Acute Category: Medical Code(s): R41.0 - Disorientation, unspecified (3) Common bile duct dilation: Status: Acute Category: Medical Code(s): K83.8 - Other specified diseases of biliary tract (4) Hyperbilirubinemia: Status: Acute Category: Medical Code(s): E80.6 - Other disorders of bilirubin metabolism (5) Abdominal pain: Status: Acute Category: Medical Code(s): R10.9 - Unspecified abdominal pain (6) Transaminitis: Status: Acute Category: Medical Code(s): R74.01 - Elevation of levels of liver transaminase levels (7) Acute on chronic renal failure: Problem Comment: Improved but needs follow-up with PCP Status: Resolved Qualifiers: Acute renal failure type: unspecified Chronic kidney disease stage 3 subtype: stage 3b (GFR 30-44) Category: Medical Code(s): N17.9 - Acute kidney failure, unspecified; N18.9 - Chronic kidney disease, unspecified (8) 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 GFR 30-59: Status: Acute Category: Medical Code(s): E10.22 - Type 1 diabetes mellitus with diabetic chronic kidney disease; N18.30 - Chronic kidney disease, stage 3 unspecified (9) Neuropathy: Status: Acute Category: Medical Code(s): G62.9 - Polyneuropathy, unspecified (10) Anemia: Status: Acute Qualifiers: Anemia type: unspecified type Qualified Code(s): D64.9 - Anemia, unspecified Category: Medical Code(s): D64.9 - Anemia, unspecified (11) HTN (hypertension): Status: Chronic Qualifiers: Hypertension type: essential hypertension Qualified Code(s): I10 - Essential (primary) hypertension Category: Medical Code(s): I10 - Essential (primary) hypertension (12) Gout: Status: Chronic Qualifiers: Chronicity: acute Gout etiology: other secondary cause Gout site: hand Laterality: right Qualified Code(s): 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, right hand Category: Medical Code(s): M10.9 - Gout, unspecified (13) HLD (hyperlipidemia): Status: Chronic Qualifiers: Hyperlipidemia type: other hyperlipidemia Qualified Code(s): E78.49 - Other hyperlipidemia Category: Medical Code(s): E78.5 - Hyperlipidemia, unspecified (14) Diastolic heart failure: Status: Chronic Qualifiers: Heart failure chronicity: chronic Qualified Code(s): I50.32 - Chronic diastolic (congestive) heart failure Category: Medical Code(s): I50.30 - Unspecified diastolic (congestive) heart failure (15) Parkinson disease: Status: Acute Category: Medical Code(s): G20.A1 - Parkinson's disease without dyskinesia, without mention of fluctuations (16) Choledocholithiasis: Status: Acute Category: Medical Code(s): K80.50 - Calculus of bile duct without cholangitis or cholecystitis without obstruction Plan 74-year-old [place] with past medical history of Parkinson's disease, hypertension, diabetes, CKD, CVD, anemia, gout, hyperlipidemia, diastolic heart failure. Patient presents complaining of abdominal discomfort after eating starting the day. Patient jaundice, with total bili 2.6, alk phos 553, AST 369 at time of admission. Patient admitted with choledocholithiasis. Dominick pus on ERCP with stent placement. Symptoms consistent with sepsis and cholangitis. He continues to require ICU level care. Continue broad-spectrum antibiotics. Repeat blood cultures today. GI continues to assist with care. Problems addressed as follows: Acute metabolic encephalopathy Sepsis Cholangitis Choledocholithiasis Bacteremia COVID-19 Physical deconditioning ? GI evaluated with ERCP on 08/24 with pus and 3 stone removal. White count improved to 7.6. - Will need repeat ERCP in 3 months with removal of biliary stent. - Intial Blood cultures PCR shows Enterococcus, E. coli, Klebsiella. Repeat NGTD. - PCR shows Enterococcus, E. coli, Klebsiella. - Started Unasyn, discontinued ceftriaxone and Vanc, given sensitivities. End date 09/03/24 in setting of bacteremia. - Patient continues to be do well, still has significant physical deconditioning. - PT/OT recommended SNF. - Patient and family would like to proceed with SNF placement, but would like for it to be in [place] such as [place]. - Case management assisting with placement. Anticipate discharge to SNF if possible on Saturday. Parkinson's disease: Carbidopa/levodopa 4 times a day, caution with delirium medications due to risk for extraparametal symptoms and NMS Diabetes: Patient states he no longer requires diabetic medication at home. A1c historically less than 6 over the past year. twice daily AC Accu-Cheks with sliding scale insulin coverage if needed. CKD: Minimize use of nephrotoxic drugs Diastolic heart failure: Hold aspirin, Lasix in the setting of sepsis and ERCP. CVD: As listed and diastolic heart failure section Gout: Allopurinol 100 mg p.o. daily Hyperlipidemia: Simvastatin 20 mg p.o. daily Anemia: Serial CBCs daily Resume home hydrocodone for pain 10 mg every 4 hours as needed. Discontinue morphine. PPx SCDs CODE STATUS full FEN: Advance as tolerated
[2024-08-30] VITALS (9 sets, daily range): BP systolic 136–159; BP diastolic 65–74; PULSE 63–73; RESP 18–24; TEMP 36.6–37.4; O2SAT 90–98; BMI 26.2
--- NOTE | 2024-08-30 05:00 | PC.NURSE ---
Patient was alert and oriented earlier this shift, but is slightly sallow and fatigued this morning. However, patient was observed to be able to rest compared to the previous night, with eyes closed, respirations even and unlabored on 3 L of oxygen via nasal cannula, and no apparent distress throughout the majority of the night. Patient complained of having generalized pain once and was treated with [place] per NOV. Scheduled medications were administered as appropriately per NOV. Patient took his PO pills one at a time with assistance from family and staff, with coaching to swallow the water. Aspiration precautions ongoing. Patient continues to have a gargled intermittent cough and mumbled speech. Upon auscultation of the patient's lungs, coarse crackles could be heard in the bases and rhonchi could be heard throughout. Auscultation of his heart and bowels were within normal findings. Patient remains incontinent. Patient has been turned and repositioned throughout the shift. Patient remains quite weak with [id number] assessment and dependent on others. Redness remains on his coccyx with a dressing in place. Chapstick has been applied to the patient's lips due to dry membranes. A male purewick remains in place (changed this morning) and urine output has been emptied/documented accordingly. Urine appearance was slightly concentrated and bright yellow. Patient's skin was noted to be occasionally moist but more pink in color. Bruising remains on his bilateral forearms. Vital signs have remained stable this shift. No acute changes have been noted thus far. Patient is currently positioned on his left side in bed. He does not have any further complaints. Call light within reach.
[2024-08-30 05:05] LABS: POC Glucose,Bedside 92 (70-110)
--- NOTE | 2024-08-30 05:23 | PC.NURSE ---
Patient's (Nicolasa Maravilla) called this morning at 05:05 to check in on the patient.
[2024-08-30] MEDS: IPRATROPIUM/ALBUTEROL 3 ML NEB IH ×3 (06:28→19:00)
[2024-08-30 08:28] LABS: Albumin Level 2.9 g/dl (3.5-5.0); Chloride 111 mmol/L (98-107); Potassium 4.1 mmoL/L (3.5-5.1); Sodium 135 mmol/L (136-145)
[2024-08-30 08:31] LABS: Alanine Aminotransferase 11 U/L (12-78); Albumin/Globulin Ratio 1.2 (1.1-1.8); Alkaline Phosphatase 158 U/L (38-126); Anion Gap 3.1 mEq/L (5-15); Aspartate Amino Transferase 49 U/L (17-59); Bilirubin,Total 0.8 mg/dl (0.2-1.3); Blood Urea Nitrogen 33 mg/dl (9-20); Calcium 8.3 mg/dl (8.4-10.2); Carbon Dioxide 25 mmol/L (22.0-30.0); Creatinine Clearance Estimated 56 mL/min (50-200); Estimated Glomerular Filt Rate 54 ml/min (>60); GFR (African American) 65 ML/MIN (>60); Globulin 2.5 g/dL (1.3-3.2); Glucose 79 mg/dl (74-100); Magnesium 2.3 mg/dl (1.6-2.3); Total Protein,Serum 5.4 g/dl (6.3-8.2)
[2024-08-30 08:43] LABS: Hematocrit 26.7 % (42.0-52.0); Hemoglobin 8.3 g/dL (14.1-18.0); Mean Corpuscular HGB Conc 31.1 g/dL (31.8-35.4); Mean Corpuscular Hemoglobin 30.7 pg (27.0-31.2); Mean Corpuscular Volume 98.9 fl (80-94); White Blood Count 4.3 K/mm3 (4.8-10.8)
[2024-08-30 08:44] LABS: Eosinophils # 0.2 K/mm3 (0.0-0.4); Eosinophils % 5.1 % (0.1-12.0); Lymphocytes # 0.6 K/mm3 (0.7-4.5); Lymphocytes % 14.7 % (10-50); Mean Platelet Volume 11.8 fl (7.4-10.4); Monocytes # 0.4 K/mm3 (0.1-1.0); Monocytes % 8.2 % (1.7-9.3); Neutrophils # 3.1 K/mm3 (1.8-7.8); Neutrophils % 71.3 % (37.0-80.0); Platelet Count 107 K/mm3 (142-424); Red Cell Distribution Width 13.4 % (11.5-17.5)
--- NOTE | 2024-08-30 09:08 | PC.NURSE ---
Addendum entered by Carly Cotto RN 08/30/24 10:31: pt agreeable to meds with encouragement from family. all three 0900 meds administered Original Note: entered pt room to administer morning meds and pt refused very adamantly, stating no. i dont want anymore meds . educated pt on the importance of medications. will attempt to administer again around 1000.
[2024-08-30] MEDS: GABAPENTIN 600MG TABLET 600 MG PO ×3 (09:50→21:05)
[2024-08-30] MEDS: CARBIDOPA/LEVODOPA CR 50/200MG TABLET 1 EACH PO ×4 (09:50→21:00)
[2024-08-30] MEDS: CARVEDILOL 6.25MG TABLET 6.25 MG PO ×2 (09:50→21:00)
[2024-08-30 10:48] LABS: POC Glucose,Bedside 85 (70-110)
--- NOTE | 2024-08-30 11:40 | PC.NURSE ---
due to silent aspiration, pt will now require thickened liquids
[2024-08-30] MEDS: HYDROCODONE/APAP 5/325 MG TABLET 2 TAB PO ×2 (18:08→21:00)
--- NOTE | 2024-08-30 18:29 | PC.NURSE ---
pt resting on rt side in bed with wedge in place to relieve sacral pressure. pressure dressing in place on sacrum and heels. a&ox3. pt has very wet lung sounds. MD ordered liquids to be honey thick due to silent aspiration possibility. pt has wet cough. pt noted to drool when sleeping. garbled speech. pt becomes combative and angry at times, but resolves with rest and redirection. pt spoke to on the phone around 1800 and was in good spirits. pt tolerated medications when given in yogurt/thickened liquids. pt treated per nov for pain management. no complaints at this time. call light within reach.
--- NOTE | 2024-08-30 20:19 | PC.NURSE ---
Addendum entered by Elza Rowe RN 08/30/24 20:29: During sacral dressing change, patient's pressure area was assessed. The pressure area on his coccyx likely scores a stage 2 with a small, pinpoint-sized open area. No drainage or bleeding was noted from the open area, but his coccyx remains red. Original Note: Patient was given a bed bath with a purewick/brief change this evening, and he tolerated it very well. He stated that it made him feel much better. Patient was repositioned onto his right side at this time. His sacral dressing was also changed by me with the bed bath.
[2024-08-30 20:57] LABS: Vancomycin,Trough 8.5 ug/mL (5.0-10.0)
[2024-08-30] MEDS: CEFTRIAXONE SODIUM 1 GM in 0.9 % SODIUM CHLORIDE 50 ML IV (21:00)
[2024-08-30] MEDS: PHA TO NURSING INSTRUCTION 1 EACH NOTAPPLIC (21:00)
[2024-08-30 23:25] LABS: POC Glucose,Bedside 114 (70-110)
[2024-08-31] VITALS (11 sets, daily range): BP systolic 127–168; BP diastolic 62–81; PULSE 56–72; RESP 16–21; TEMP 36.4–36.8; O2SAT 3–99; BMI 26.1
--- NOTE | 2024-08-31 04:10 | PC.NURSE ---
Patient is alert and oriented. Patient was observed to have eyes closed, respirations even and unlabored on 3 L of oxygen via nasal cannula, and no apparent distress throughout the night. He was given a bed bath with a purewick, brief, and dressing change (see prior note). Scheduled medications were administered as appropriately per MAR. Vancomycin and ceftriaxone antibiotics discontinued this shift, unasyn antibiotic newly ordered. Patient tolerated swallowing his PO medications beautifully with honey-thickened liquids; patient was noticed swishing the liquid in his mouth before swallowing, and was occasionally told to double swallow due to drooling and pooling of liquid in his mouth. Aspiration precautions ongoing. Patient continues to have a gargled cough. Upon auscultation of his lungs, inspiratory/expiratory rhonchi could be heard bilaterally. Patient is dependent on staff for daily/nightly care. Chapstick has been applied to his lips per dry membranes. Continuing turning/repositioning. Pulse ox still in place. Heart rate has been slightly bradycardic this shift (> 55 bpm). At this time, the patient is resting in bed with no further complaints. No acute changes noted thus far. Call light within reach.
[2024-08-31] MEDS: HYDROCODONE/APAP 5/325 MG TABLET 2 TAB PO ×2 (05:00→17:11)
[2024-08-31 05:37] LABS: POC Glucose,Bedside 92 (70-110)
[2024-08-31] MEDS: IPRATROPIUM/ALBUTEROL 3 ML NEB IH ×3 (05:51→19:03)
[2024-08-31 07:01] LABS: Albumin Level 2.9 g/dl (3.5-5.0); Chloride 112 mmol/L (98-107); Sodium 137 mmol/L (136-145)
[2024-08-31 07:02] LABS: Potassium 4.3 mmoL/L (3.5-5.1)
[2024-08-31 07:04] LABS: Alanine Aminotransferase 8 U/L (12-78); Albumin/Globulin Ratio 1.3 (1.1-1.8); Alkaline Phosphatase 148 U/L (38-126); Anion Gap 0.3 mEq/L (5-15); Aspartate Amino Transferase 35 U/L (17-59); Bilirubin,Total 0.7 mg/dl (0.2-1.3); Blood Urea Nitrogen 32 mg/dl (9-20); Carbon Dioxide 29 mmol/L (22.0-30.0); Creatinine Clearance Estimated 52 mL/min (50-200); Estimated Glomerular Filt Rate 49 ml/min (>60); GFR (African American) 60 ML/MIN (>60); Globulin 2.3 g/dL (1.3-3.2); Total Protein,Serum 5.2 g/dl (6.3-8.2)
[2024-08-31 07:05] LABS: Calcium 8.4 mg/dl (8.4-10.2); Glucose 86 mg/dl (74-100); Magnesium 2.5 mg/dl (1.6-2.3)
[2024-08-31 08:12] LABS: Hematocrit 24.9 % (42.0-52.0); Hemoglobin 8.1 g/dL (14.1-18.0); Mean Corpuscular HGB Conc 32.5 g/dL (31.8-35.4); Mean Corpuscular Hemoglobin 32.4 pg (27.0-31.2); Mean Corpuscular Volume 99.6 fl (80-94); Red Cell Distribution Width 13.7 % (11.5-17.5); White Blood Count 3.2 K/mm3 (4.8-10.8)
[2024-08-31 08:13] LABS: Basophils % 0.3 % (0.1-2.0); Eosinophils # 0.2 K/mm3 (0.0-0.4); Eosinophils % 7.2 % (0.1-12.0); Lymphocytes # 0.7 K/mm3 (0.7-4.5); Lymphocytes % 21.5 % (10-50); Mean Platelet Volume 11.1 fl (7.4-10.4); Monocytes # 0.3 K/mm3 (0.1-1.0); Monocytes % 8.1 % (1.7-9.3); Platelet Count 112 K/mm3 (142-424)
[2024-08-31] MEDS: GABAPENTIN 600MG TABLET 600 MG PO ×2 (09:56→20:57)
[2024-08-31] MEDS: CARVEDILOL 6.25MG TABLET 6.25 MG PO ×2 (09:56→20:57)
[2024-08-31] MEDS: CARBIDOPA/LEVODOPA CR 50/200MG TABLET 1 EACH PO ×3 (09:56→20:57)
[2024-08-31] MEDS: AMPICILLIN/SULBACTAM 3 GM in 0.9 % SODIUM CHLORIDE 100 ML IV ×2 (09:57→17:09)
--- NOTE | 2024-08-31 10:46 | DIET.NUTRFU ---
Addendum entered by Leatha Bennett RD, LD 08/31/24 13:22: during rounds, nursing reported patient is leaking out the thin liquids via side of his mouth. Provider made patient NPO until seen by TRACTOR TECHNICIAN. RD spoke to TRACTOR TECHNICIAN and she will try to get a modified scheduled for patient. Original Note: diet clarification this AM with TRACTOR TECHNICIAN. Nursing started thickened liquids secondary to cough over weekend. Spoke to TRACTOR TECHNICIAN this morning who evaluated on Saturday, continues to recommend thin liquids, he has a cough at baseline and she feels it is not putting him at aspiration risk. TRACTOR TECHNICIAN will follow-up later today. Kitchen was updated and glucerna is provided with meals.
--- NOTE | 2024-08-31 12:10 | FL_ITS ---
FINAL REPORT CLINICAL HISTORY: aspiration concern 3:24 fluoro 22.96 mGy DAP 373.39 FINDINGS: FLUOROSCOPY LESS THAN 1 HOUR HISTORY: Fluoroscopy guidance. Fluoroscopic guidance was provided for modified barium swallow. A total of 3:24 minutes of fluoroscopy time were used. Total DAP: 22.96 mGy IMPRESSION: As above. Reviewed, Interpreted and Dictated by Valente Martinez MD Transcribed by Aimee Luu Authenticated and [facility]
--- NOTE | 2024-08-31 15:13 | EXP.PN ---
Subjective *Date: 09/07/24 *Time: 22:47 Interval history: Patient doing well, no concerns today. Pending SNF placement. Exam Data for Last 24 hours Vital signs and Labs for Last 24 Hours: Temp Pulse Resp BP Pulse Ox O2 Del Method O2 Flow Rate 97.5 F L 64 21 150/71 H 96 Nasal Cannula 3 08/31/24 12:00 08/31/24 14:43 08/31/24 12:00 08/31/24 12:00 08/31/24 14:43 08/31/24 14:43 08/31/24 14:43 Laboratory Results - last 24 hr 08/30/24 20:25: Vancomycin Trough 8.5 08/30/24 21:15: POC Glucose 114 H 08/31/24 05:29: POC Glucose 92 08/31/24 05:52: WBC 3.2 L D, RBC 2.50 L, Hgb 8.1 L, Hct 24.9 L, MCV 99.6 H, MCH 32.4 H, MCHC 32.5, RDW 13.7, Plt Count 112 L, MPV 11.1 H, Neut % (Auto) 62.0, Lymph % (Auto) 21.5, [place] % (Auto) 8.1, Eos % (Auto) 7.2, Baso % (Auto) 0.3, Neut # (Auto) 2.0, Lymph # (Auto) 0.7, [place] # (Auto) 0.3, Eos # (Auto) 0.2, Baso # (Auto) 0.0, Sodium 137, Potassium 4.3, Chloride 112 H, Carbon Dioxide 29, Anion Gap 0.3 L, BUN 32 H, Creatinine 1.40 H, Estimated Creat Clear 52, Estimated GFR 49 L, Est GFR ( Amer) 60, Glucose 86, Calcium 8.4, Magnesium 2.5 H, Total Bilirubin 0.7, AST 35 D, ALT 8 L D, Alkaline Phosphatase 148 H, Total Protein 5.2 L, Albumin 2.9 L, Globulin 2.3, Albumin/Globulin Ratio 1.3 I & O for Last 24 hours: Intake & Output 08/28/24 08/29/24 08/30/24 08/31/24 23:59 23:59 23:59 23:59 Intake Total 1084 / 1584 1560 / 2568 1468 / 1718 250 / 250 Output Total 850 / 850 400 / 550 700 / 850 400 / 400 Balance 234 / 734 1159 768 / 868 -150 / -150 Weight 75.841 kg 77.337 kg 80.286 kg 80.014 kg Microbiology Reports for the Last 24 Hours: Microbiology 08/27/24 04:45 Blood Blood Culture - Preliminary NO GROWTH AFTER 4 DAYS 08/27/24 04:45 Blood Blood Culture - Preliminary NO GROWTH AFTER 4 DAYS Constitutional Constitutional: no acute distress, average body habitus, chronically ill appearing and cooperative *Routine HEENT Exam Head: Present normocephalic and atraumatic Eye: Present EOMI and PERRL ENT: Present mucous membranes moist *Routine Neck Exam Neck: Present supple; Absent lymphadenopathy *Routine Respiratory Exam Respiratory: Present CTA bilaterally, rhonchi and normal respiratory effort; Absent respiratory distress, wheezes or crackles *Routine Cardiovascular Exam Cardiovascular: Present RRR *Routine Abdominal Exam Abdominal: Present soft and normoactive bowel sounds; Absent tenderness *Routine Rectal Exam Patient deferred: visual exam *Routine Exam Patient deferred: penile exam *Routine Extremities Exam Extremities: Absent cyanosis, clubbing or edema *Routine Skin Exam Skin: Present intact and warm; Absent rash *Routine Neurological Exam Neurological: Present alert, CN II-XII intact and moving all extremities; Absent altered mental status Comments: cogwheeling in UE Bilat. stable but shuffling gait (baseline) Assessment and Plan *Assessment and plan (1) Acute cholangitis: Status: Resolved Category: Medical Code(s): K83.09 - Other cholangitis (2) Delirium: Status: Acute Category: Medical Code(s): R41.0 - Disorientation, unspecified (3) Common bile duct dilation: Status: Resolved Category: Medical Code(s): K83.8 - Other specified diseases of biliary tract (4) Hyperbilirubinemia: Status: Resolved Category: Medical Code(s): E80.6 - Other disorders of bilirubin metabolism (5) Abdominal pain: Status: Resolved Category: Medical Code(s): R10.9 - Unspecified abdominal pain (6) Transaminitis: Status: Resolved Category: Medical Code(s): R74.01 - Elevation of levels of liver transaminase levels (7) Acute on chronic renal failure: Problem Comment: Improved but needs follow-up with PCP Status: Resolved Qualifiers: Acute renal failure type: unspecified Chronic kidney disease stage 3 subtype: stage 3b (GFR 30-44) Category: Medical Code(s): N17.9 - Acute kidney failure, unspecified; N18.9 - Chronic kidney disease, unspecified (8) HTN (hypertension): Status: Chronic Qualifiers: Hypertension type: essential hypertension Qualified Code(s): I10 - Essential (primary) hypertension Category: Medical Code(s): I10 - Essential (primary) hypertension (9) Diastolic heart failure: Status: Chronic Qualifiers: Heart failure chronicity: chronic Qualified Code(s): I50.32 - Chronic diastolic (congestive) heart failure Category: Medical Code(s): I50.30 - Unspecified diastolic (congestive) heart failure (10) Parkinson disease: Status: Acute Category: Medical Code(s): G20.A1 - Parkinson's disease without dyskinesia, without mention of fluctuations (11) Choledocholithiasis: Status: Resolved Category: Medical Code(s): K80.50 - Calculus of bile duct without cholangitis or cholecystitis without obstruction Plan 74-year-old [place] with past medical history of Parkinson's disease, hypertension, diabetes, CKD, CVD, anemia, gout, hyperlipidemia, diastolic heart failure. Patient presents complaining of abdominal discomfort after eating starting the day. Patient jaundice, with total bili 2.6, alk phos 553, AST 369 at time of admission. Patient admitted with choledocholithiasis. Dominick pus on ERCP with stent placement. Symptoms consistent with sepsis and cholangitis. He continues to require ICU level care. Continue broad-spectrum antibiotics. Repeat blood cultures today. GI continues to assist with care. Problems addressed as follows: Acute metabolic encephalopathy Sepsis Cholangitis Choledocholithiasis Bacteremia COVID-19 Physical deconditioning ? GI evaluated with ERCP on 08/24 with pus and 3 stone removal. White count improved to 7.6. - Will need repeat ERCP in 3 months with removal of biliary stent. - Intial Blood cultures PCR shows Enterococcus, E. coli, Klebsiella. Repeat NGTD. - PCR shows Enterococcus, E. coli, Klebsiella. - Continue Unasyn, discontinued ceftriaxone and Vanc, given sensitivities. End date 09/03/24 in setting of bacteremia. - Patient continues to be do well, still has significant physical deconditioning. - PT/OT recommended SNF. - Patient and family would like to proceed with SNF placement, but would like for it to be in [place] such as [place]. - Case management assisting with placement. Anticipate discharge to SNF if possible on Saturday. Parkinson's disease: Carbidopa/levodopa 4 times a day, caution with delirium medications due to risk for extraparametal symptoms and NMS Diabetes: Patient states he no longer requires diabetic medication at home. A1c historically less than 6 over the past year. twice daily AC Accu-Cheks with sliding scale insulin coverage if needed. CKD: Minimize use of nephrotoxic drugs Diastolic heart failure: Hold aspirin, Lasix in the setting of sepsis and ERCP. CVD: As listed and diastolic heart failure section Gout: Allopurinol 100 mg p.o. daily Hyperlipidemia: Simvastatin 20 mg p.o. daily Anemia: Serial CBCs daily Resume home hydrocodone for pain 10 mg every 4 hours as needed. Discontinue morphine. PPx SCDs CODE STATUS full FEN: Advance as tolerated
--- NOTE | 2024-08-31 15:13 | EXP.PN ---
Subjective *Date: 08/31/24 *Time: 15:13 Exam Data for Last 24 hours Vital signs and Labs for Last 24 Hours: Temp Pulse Resp BP Pulse Ox O2 Del Method O2 Flow Rate 97.5 F L 64 21 150/71 H 96 Nasal Cannula 3 08/31/24 12:00 08/31/24 14:43 08/31/24 12:00 08/31/24 12:00 08/31/24 14:43 08/31/24 14:43 08/31/24 14:43 Laboratory Results - last 24 hr 08/30/24 20:25: Vancomycin Trough 8.5 08/30/24 21:15: POC Glucose 114 H 08/31/24 05:29: POC Glucose 92 08/31/24 05:52: WBC 3.2 L D, RBC 2.50 L, Hgb 8.1 L, Hct 24.9 L, MCV 99.6 H, MCH 32.4 H, MCHC 32.5, RDW 13.7, Plt Count 112 L, MPV 11.1 H, Neut % (Auto) 62.0, Lymph % (Auto) 21.5, [place] % (Auto) 8.1, Eos % (Auto) 7.2, Baso % (Auto) 0.3, Neut # (Auto) 2.0, Lymph # (Auto) 0.7, [place] # (Auto) 0.3, Eos # (Auto) 0.2, Baso # (Auto) 0.0, Sodium 137, Potassium 4.3, Chloride 112 H, Carbon Dioxide 29, Anion Gap 0.3 L, BUN 32 H, Creatinine 1.40 H, Estimated Creat Clear 52, Estimated GFR 49 L, Est GFR ( Amer) 60, Glucose 86, Calcium 8.4, Magnesium 2.5 H, Total Bilirubin 0.7, AST 35 D, ALT 8 L D, Alkaline Phosphatase 148 H, Total Protein 5.2 L, Albumin 2.9 L, Globulin 2.3, Albumin/Globulin Ratio 1.3 I & O for Last 24 hours: Intake & Output 08/28/24 08/29/24 08/30/24 08/31/24 23:59 23:59 23:59 23:59 Intake Total 1084 / 1584 1560 / 2568 1468 / 1718 250 / 250 Output Total 850 / 850 400 / 550 700 / 850 400 / 400 Balance 234 / 734 1159 768 / 868 -150 / -150 Weight 75.841 kg 77.337 kg 80.286 kg 80.014 kg Microbiology Reports for the Last 24 Hours: Microbiology 08/27/24 04:45 Blood Blood Culture - Preliminary NO GROWTH AFTER 4 DAYS 08/27/24 04:45 Blood Blood Culture - Preliminary NO GROWTH AFTER 4 DAYS Assessment and Plan *Assessment and plan (1) Acute cholangitis: Status: Acute Category: Medical Code(s): K83.09 - Other cholangitis (2) Delirium: Status: Acute Category: Medical Code(s): R41.0 - Disorientation, unspecified (3) Common bile duct dilation: Status: Acute Category: Medical Code(s): K83.8 - Other specified diseases of biliary tract (4) Hyperbilirubinemia: Status: Acute Category: Medical Code(s): E80.6 - Other disorders of bilirubin metabolism (5) Abdominal pain: Status: Acute Category: Medical Code(s): R10.9 - Unspecified abdominal pain (6) Transaminitis: Status: Acute Category: Medical Code(s): R74.01 - Elevation of levels of liver transaminase levels (7) Acute on chronic renal failure: Problem Comment: Improved but needs follow-up with PCP Status: Resolved Qualifiers: Acute renal failure type: unspecified Chronic kidney disease stage 3 subtype: stage 3b (GFR 30-44) Category: Medical Code(s): N17.9 - Acute kidney failure, unspecified; N18.9 - Chronic kidney disease, unspecified (8) 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 GFR 30-59: Status: Acute Category: Medical Code(s): E10.22 - Type 1 diabetes mellitus with diabetic chronic kidney disease; N18.30 - Chronic kidney disease, stage 3 unspecified (9) Neuropathy: Status: Acute Category: Medical Code(s): G62.9 - Polyneuropathy, unspecified (10) Anemia: Status: Acute Qualifiers: Anemia type: unspecified type Qualified Code(s): D64.9 - Anemia, unspecified Category: Medical Code(s): D64.9 - Anemia, unspecified (11) HTN (hypertension): Status: Chronic Qualifiers: Hypertension type: essential hypertension Qualified Code(s): I10 - Essential (primary) hypertension Category: Medical Code(s): I10 - Essential (primary) hypertension (12) Gout: Status: Chronic Qualifiers: Gout site: hand Gout etiology: other secondary cause Chronicity: acute Laterality: right Qualified Code(s): 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, right hand Category: Medical Code(s): M10.9 - Gout, unspecified (13) HLD (hyperlipidemia): Status: Chronic Qualifiers: Hyperlipidemia type: other hyperlipidemia Qualified Code(s): E78.49 - Other hyperlipidemia Category: Medical Code(s): E78.5 - Hyperlipidemia, unspecified (14) Diastolic heart failure: Status: Chronic Qualifiers: Heart failure chronicity: chronic Qualified Code(s): I50.32 - Chronic diastolic (congestive) heart failure Category: Medical Code(s): I50.30 - Unspecified diastolic (congestive) heart failure (15) Parkinson disease: Status: Acute Category: Medical Code(s): G20.A1 - Parkinson's disease without dyskinesia, without mention of fluctuations (16) Choledocholithiasis: Status: Acute Category: Medical Code(s): K80.50 - Calculus of bile duct without cholangitis or cholecystitis without obstruction Plan 74-year-old [place] with past medical history of Parkinson's disease, hypertension, diabetes, CKD, CVD, anemia, gout, hyperlipidemia, diastolic heart failure. Patient presents complaining of abdominal discomfort after eating starting the day. Patient jaundice, with total bili 2.6, alk phos 553, AST 369 at time of admission. Patient admitted with choledocholithiasis. Dominick pus on ERCP with stent placement. Symptoms consistent with sepsis and cholangitis. He continues to require ICU level care. Continue broad-spectrum antibiotics. Repeat blood cultures today. GI continues to assist with care. Problems addressed as follows: Acute metabolic encephalopathy Sepsis Cholangitis Choledocholithiasis Bacteremia COVID-19 Physical deconditioning ? GI evaluated with ERCP on 08/24 with pus and 3 stone removal. White count improved to 7.6. - Will need repeat ERCP in 3 months with removal of biliary stent. - Intial Blood cultures PCR shows Enterococcus, E. coli, Klebsiella. Repeat NGTD. - PCR shows Enterococcus, E. coli, Klebsiella. - Started Unasyn, discontinued ceftriaxone and Vanc, given sensitivities. End date 09/03/24 in setting of bacteremia. - Patient continues to be do well, still has significant physical deconditioning. - PT/OT recommended SNF. - Patient and family would like to proceed with SNF placement, but would like for it to be in [place] such as [place]. - Case management assisting with placement. Anticipate discharge to SNF if possible on Saturday. Parkinson's disease: Carbidopa/levodopa 4 times a day, caution with delirium medications due to risk for extraparametal symptoms and NMS Diabetes: Patient states he no longer requires diabetic medication at home. A1c historically less than 6 over the past year. twice daily AC Accu-Cheks with sliding scale insulin coverage if needed. CKD: Minimize use of nephrotoxic drugs Diastolic heart failure: Hold aspirin, Lasix in the setting of sepsis and ERCP. CVD: As listed and diastolic heart failure section Gout: Allopurinol 100 mg p.o. daily Hyperlipidemia: Simvastatin 20 mg p.o. daily Anemia: Serial CBCs daily Resume home hydrocodone for pain 10 mg every 4 hours as needed. Discontinue morphine. PPx SCDs CODE STATUS full FEN: Advance as tolerated
--- NOTE | 2024-08-31 15:16 | P.DS_ITS ---
General Admission date:: 08/24/24 HPI HPI HPI: Mr. Maravilla is a 74-year-old [place] admitted for common bile duct obstruction and total bili 2.6, alk phos 553, AST 369 at time of admission. CAT scan shows dilated common bile duct with probable choledocholithiasis. The patient did have cholecystectomy 3 years ago with Nathen Carl MD here at [facility]). The patient is starting to have some mild decline in cognitive status with mild hypotension and signs of possible early cholangitis. ERCP is performed for clearance of the biliary tree urgently. Hospital Course Hospital Course Hospital Course: Hung Maravilla 74-year-old [place] with past medical history of Parkinson's disease, hypertension, diabetes, CKD, CVD, anemia, gout, hyperlipidemia, diastolic heart failure. Patient presents complaining of abdominal discomfort after eating starting the day. Patient jaundice, with total bili 2.6, alk phos 553, AST 369 at time of admission. Patient admitted with choledocholithiasis. Dominick pus on ERCP with stent placement. Symptoms consistent with sepsis and cholangitis. He continues to require ICU level care. Continue broad-spectrum antibiotics. Repeat blood cultures today. GI continues to assist with care. Problems addressed as follows: Acute metabolic encephalopathy Sepsis Cholangitis Choledocholithiasis Bacteremia COVID-19 Physical deconditioning ? GI evaluated with ERCP on 08/24 with pus and 3 stone removal. White count improved to 7.6. - Will need repeat ERCP in 3 months with removal of biliary stent. - Intial Blood cultures PCR shows Enterococcus, E. coli, Klebsiella. Repeat NGTD. - PCR shows Enterococcus, E. coli, Klebsiella. - Started Unasyn, discontinued ceftriaxone and Vanc, given sensitivities. End date 09/03/24 in setting of bacteremia. - Patient continues to be do well, still has significant physical deconditioning. - PT/OT recommended SNF. - Patient and family would like to proceed with SNF placement, but would like for it to be in [place] such as [place]. - Case management assisting with placement. Anticipate discharge to SNF if possible on Saturday. Parkinson's disease: Carbidopa/levodopa 4 times a day, caution with delirium medications due to risk for extraparametal symptoms and NMS Diabetes: Patient states he no longer requires diabetic medication at home. A1c historically less than 6 over the past year. twice daily AC Accu-Cheks with sliding scale insulin coverage if needed. CKD: Minimize use of nephrotoxic drugs Diastolic heart failure: Hold aspirin, Lasix in the setting of sepsis and ERCP. CVD: As listed and diastolic heart failure section Gout: Allopurinol 100 mg p.o. daily Hyperlipidemia: Simvastatin 20 mg p.o. daily Anemia: Serial CBCs daily Resume home hydrocodone for pain 10 mg every 4 hours as needed. Discontinue morphine. Exam Data for Last 24 hours Vital signs and Labs for Last 24 Hours: Temp Pulse Resp BP Pulse Ox O2 Del Method O2 Flow Rate 97.5 F L 64 21 150/71 H 96 Nasal Cannula 3 08/31/24 12:00 08/31/24 14:43 08/31/24 12:00 08/31/24 12:00 08/31/24 14:43 08/31/24 14:43 08/31/24 14:43 Laboratory Results - last 24 hr 08/30/24 20:25: Vancomycin Trough 8.5 08/30/24 21:15: POC Glucose 114 H 08/31/24 05:29: POC Glucose 92 08/31/24 05:52: WBC 3.2 L D, RBC 2.50 L, Hgb 8.1 L, Hct 24.9 L, MCV 99.6 H, MCH 32.4 H, MCHC 32.5, RDW 13.7, Plt Count 112 L, MPV 11.1 H, Neut % (Auto) 62.0, Lymph % (Auto) 21.5, [place] % (Auto) 8.1, Eos % (Auto) 7.2, Baso % (Auto) 0.3, Neut # (Auto) 2.0, Lymph # (Auto) 0.7, [place] # (Auto) 0.3, Eos # (Auto) 0.2, Baso # (Auto) 0.0, Sodium 137, Potassium 4.3, Chloride 112 H, Carbon Dioxide 29, Anion Gap 0.3 L, BUN 32 H, Creatinine 1.40 H, Estimated Creat Clear 52, Estimated GFR 49 L, Est GFR ( Amer) 60, Glucose 86, Calcium 8.4, Magnesium 2.5 H, Total Bilirubin 0.7, AST 35 D, ALT 8 L D, Alkaline Phosphatase 148 H, Total Protein 5.2 L, Albumin 2.9 L, Globulin 2.3, Albumin/Globulin Ratio 1.3 I & O for Last 24 hours: Intake & Output 08/28/24 08/29/24 08/30/24 08/31/24 23:59 23:59 23:59 23:59 Intake Total 1084 / 1584 1560 / 2568 1468 / 1718 250 / 250 Output Total 850 / 850 400 / 550 700 / 850 400 / 400 Balance 234 / 734 1159 768 / 868 -150 / -150 Weight 75.841 kg 77.337 kg 80.286 kg 80.014 kg Microbiology Reports for the Last 24 Hours: Microbiology 08/27/24 04:45 Blood Blood Culture - Preliminary NO GROWTH AFTER 4 DAYS 08/27/24 04:45 Blood Blood Culture - Preliminary NO GROWTH AFTER 4 DAYS Results Data Completed and Pending Labs on day of discharge: Labs from last 24 hours 08/31/24 08/31/24 08/30/24 05:52 05:29 21:15 WBC 3.2 L D RBC 2.50 L Hgb 8.1 L Hct 24.9 L MCV 99.6 H MCH 32.4 H MCHC 32.5 RDW 13.7 Plt Count 112 L MPV 11.1 H Neut % (Auto) 62.0 Lymph % (Auto) 21.5 [place] % (Auto) 8.1 Eos % (Auto) 7.2 Baso % (Auto) 0.3 Neut # (Auto) 2.0 Lymph # (Auto) 0.7 [place] # (Auto) 0.3 Eos # (Auto) 0.2 Baso # (Auto) 0.0 Sodium 137 Potassium 4.3 Chloride 112 H Carbon Dioxide 29 Anion Gap 0.3 L BUN 32 H Creatinine 1.40 H Estimated Creat Clear 52 Estimated GFR 49 L Est GFR ( Amer) 60 Glucose 86 POC Glucose 92 114 H Calcium 8.4 Magnesium 2.5 H Total Bilirubin 0.7 AST 35 D ALT 8 L D Alkaline Phosphatase 148 H Total Protein 5.2 L Albumin 2.9 L Globulin 2.3 Albumin/Globulin Ratio 1.3 Vancomycin Trough 08/30/24 20:25 WBC RBC Hgb Hct MCV MCH MCHC RDW Plt Count MPV Neut % (Auto) Lymph % (Auto) [place] % (Auto) Eos % (Auto) Baso % (Auto) Neut # (Auto) Lymph # (Auto) [place] # (Auto) Eos # (Auto) Baso # (Auto) Sodium Potassium Chloride Carbon Dioxide Anion Gap BUN Creatinine Estimated Creat Clear Estimated GFR Est GFR ( Amer) Glucose POC Glucose Calcium Magnesium Total Bilirubin AST ALT Alkaline Phosphatase Total Protein Albumin Globulin Albumin/Globulin Ratio Vancomycin Trough 8.5 Preliminary micro results at discharge 08/27/24 04:45 Blood Culture - Preliminary Blood NO GROWTH AFTER 4 DAYS 08/27/24 04:45 Blood Culture - Preliminary Blood NO GROWTH AFTER 4 DAYS 08/24/24 06:53 Blood Culture - Preliminary Blood Escherichia coli Enterococcus faecium (grp d) 08/24/24 06:53 Blood Culture - Preliminary Blood Escherichia coli DS: Diagnosis Discharge Diagnosis (1) Acute cholangitis: Status: Acute Code(s): K83.09 - Other cholangitis (2) Delirium: Status: Acute Code(s): R41.0 - Disorientation, unspecified (3) Common bile duct dilation: Status: Acute Code(s): K83.8 - Other specified diseases of biliary tract (4) Hyperbilirubinemia: Status: Acute Code(s): E80.6 - Other disorders of bilirubin metabolism (5) Abdominal pain: Status: Acute Code(s): R10.9 - Unspecified abdominal pain (6) Transaminitis: Status: Acute Code(s): R74.01 - Elevation of levels of liver transaminase levels (7) Acute on chronic renal failure: Status: Resolved Code(s): N17.9 - Acute kidney failure, unspecified; N18.9 - Chronic kidney disease, unspecified Qualifiers: Acute renal failure type: unspecified Chronic kidney disease stage 3 subtype: stage 3b (GFR 30-44) Problem details: Improved but needs follow-up with PCP (8) 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 GFR 30-59: Status: Acute Code(s): E10.22 - Type 1 diabetes mellitus with diabetic chronic kidney disease; N18.30 - Chronic kidney disease, stage 3 unspecified (9) Neuropathy: Status: Acute Code(s): G62.9 - Polyneuropathy, unspecified (10) Anemia: Status: Acute Code(s): D64.9 - Anemia, unspecified Qualifiers: Anemia type: unspecified type Qualified Code(s): D64.9 - Anemia, unspecified (11) HTN (hypertension): Status: Chronic Code(s): I10 - Essential (primary) hypertension Qualifiers: Hypertension type: essential hypertension Qualified Code(s): I10 - Essential (primary) hypertension (12) Gout: Status: Chronic Code(s): M10.9 - Gout, unspecified Qualifiers: Chronicity: acute Gout etiology: other secondary cause Gout site: hand Laterality: right Qualified Code(s): 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, right hand (13) HLD (hyperlipidemia): Status: Chronic Code(s): E78.5 - Hyperlipidemia, unspecified Qualifiers: Hyperlipidemia type: other hyperlipidemia Qualified Code(s): E78.49 - Other hyperlipidemia (14) Diastolic heart failure: Status: Chronic Code(s): I50.30 - Unspecified diastolic (congestive) heart failure Qualifiers: Heart failure chronicity: chronic Qualified Code(s): I50.32 - Chronic diastolic (congestive) heart failure (15) Parkinson disease: Status: Acute Code(s): G20.A1 - Parkinson's disease without dyskinesia, without mention of fluctuations (16) Choledocholithiasis: Status: Acute Code(s): K80.50 - Calculus of bile duct without cholangitis or cholecystitis without obstruction Meds Home Medications and Allergies Home Medications ?Medication ?Instructions ?Recorded ?Confirmed ?Type docusate sodium 50 mg capsule 100 mg PO DAILY 12/18/23 08/24/24 History simvastatin 20 mg tablet 20 mg PO HS 90 days #90 tabs 12/25/23 08/24/24 Rx pantoprazole 40 mg tablet,delayed 40 mg PO BID 06/18/24 08/24/24 History release carbidopa ER 50 mg-levodopa 200 mg 1 tab PO QID #120 tabs 06/24/24 08/24/24 Rx tablet,extended release aspirin 81 mg tablet,delayed 81 mg PO DAILY 07/08/24 08/24/24 History release (Adult Low Dose Aspirin) mecobalamin (vitamin B12) 1,000 1,000 mcg PO DAILY 07/08/24 08/24/24 History mcg lozenges allopurinol 100 mg tablet 100 mg PO DAILY 08/24/24 08/24/24 History entacapone 200 mg tablet 200 mg PO QID 08/24/24 08/24/24 History folic acid 1 mg tablet 1 mg PO DAILY 08/24/24 08/24/24 History furosemide 20 mg tablet 20 mg PO DAILYP PRN edema 08/24/24 08/24/24 History gabapentin 600 mg tablet 600 mg PO TID 08/24/24 08/24/24 History hydrocodone 10 mg-acetaminophen 1 tab PO Q4HP PRN Moderate Pain 08/24/24 08/24/24 History 325 mg tablet (Scale Score 5-6) New Prescriptions to Start Prescriptions: Allergies Allergy/AdvReac Type Severity Reaction Status Date / Time mupirocin Allergy Rash Verified 08/24/24 12:12 Discharge Plan Follow up Plan Prescriptions/Medication Reconciliation: Continued docusate sodium 50 mg capsule 100 mg PO DAILY carbidopa-levodopa 50-200 mg tablet extended release 1 tab PO QID Qty: 120 4RF mecobalamin (vitamin B12) 1,000 mcg lozenge 1,000 mcg PO DAILY Rx Instructions: allow to dissolve in mouth OR may chew lightly before swallowing simvastatin 20 mg tablet 20 mg PO HS 90 Days Qty: 90 4RF aspirin [Adult Low Dose Aspirin] 81 mg tablet,delayed release (DR/EC) 81 mg PO DAILY pantoprazole 40 mg tablet,delayed release (DR/EC) 40 mg PO BID Patient Comments: TAKE ONE TABLET BY MOUTH TWICE DAILY folic acid 1 mg tablet 1 mg PO DAILY Patient Comments: TAKE ONE TABLET BY MOUTH EVERY DAY gabapentin 600 mg tablet 600 mg PO TID allopurinol 100 mg tablet 100 mg PO DAILY hydrocodone-acetaminophen 10-325 mg tablet 1 tab PO Q4HP PRN (Reason: Moderate Pain (Scale Score 5-6)) entacapone 200 mg tablet 200 mg PO QID Rx Instructions: administer at the same time as l-dopa/carbidopa dose furosemide 20 mg tablet 20 mg PO DAILYP PRN (Reason: edema) Patient Discharge Instructions Patient Instructions: DI for Kidney Failure, DI for Endoscopic Retrograde Cholangiopancreatography, DI for COVID-19 (Suspected or Confirmed ), DI for Bacteremia-Adult Print Language: Cymro Providers Primary Care Provider: Kwan Beth Admlata Provider: Javier Cast Attending Provider: Javier Cast
[2024-08-31] MEDS: BARIUM SULFATE(LIQUID E-Z-PAQUE);355ML BOTTLE 355 ML PO (16:16)
--- NOTE | 2024-08-31 17:01 | HMH.SLMBS2 ---
Speech & Language Evaluation Speech/Language Mod Barium Swallow Start: 08/31/24 12:10 Freq: ONCE Status: Complete Protocol: Document 08/31/24 16:36 SULY (Rec: 08/31/24 17:01 SULY [id number]) Co-signed By ST Isabela Beyer Information General Current Food Consistancy NPO Dentition Poor Dentition Oxygen Status Nasal Cannula Patient Orientation Person Ability to Follow Directions Fair Communication Ability No Impairment MBS Recommendations Diet Dietary Recommendations Mechanical Soft,Thin Liquids Treatment/Strategies Strategy/Precaution Recommend Sitting Upright (90 deg),No Straw,Small Bites and Sips, Alternate Liquids/Solids Mod Barium Swallow Impressions Summary and Impressions Oral Phase Impression Minimal Impairment Oral Phase Summary Minimal impairment of oral phase of swallow. Minimal anterior loss noted on thin liquid via cup trial 2' inadequate labial seal. Mild oral residue observed on all consistencies trialed, which was cleared with a lingual sweep and subsequent swallow. Lingual pumping observed on all consistencies trialed. Reduced and prolonged mastication and manipulation of bolus 2' fatigue and weakness. Pharyngeal Phase Impression Mild Impairment Pharyngeal Phase Summary Mild impairment of pharyngeal phase of swallow. Aspiration observed on x1 trial of thin liquid via cup, when given large bolus amount. Pt was observed to safely swallow thin via cup trials when given smaller bolus amounts. Thin liquid via straw was not trialed d/t pt's altered mental status and ability to follow directions. Pt had slightly reduced hyolaryngeal excursion and elevation on all consistencies trialed. Minimal diffuse oropharynx residue observed on mechanical soft trial, which was cleared with subsequent swallow. Barium tablet was given whole in puree and was cleared effectively into the esophageal sphincter. Speech/Language MBS Assessment/Goals/Plan Assessment Date of Evaluation: 08/31/24 Evaluation Type Initial Certification Assessment/Problems aspiration concern Does Patient Qualify for Service No Qualify/Failure Comment Based on clinical observations made throughout instrumental assessment (MBSS), further skilled speech therapy services are not warranted at this time d/t adequate mastication and manipulation of bolus and sufficient compensatory strategies. Recommendations PHYSICIAN CERTIFICATION: The specified therapy services are required, authorized, and reviewed every 30 days. Diet Recommendations Mechanical Soft Liquid Type Recommendations Normal/Thin SL Swallow Guidelines Assist w/all meals,Alt bite w/ sip thru meal,Standard Aspiration Prec.,Eat at slow rate,Oral Care Education Dysphagia Swallow Precautions/Strategies Sitting Upright (90 deg),No Straw,Small Bites and Sips, Alternate Liquids/Solids Plan Pt/Guardian verbally ack understanding Yes of dx/prognosis/goals G -code Required No Education Instructions provided COURT SUPERVISOR discussed clinical observations made throughout MBSS, aspiration precautions/ compensatory strategies, and diet recommendations with pt and nursing, each of which expressed understanding. COURT SUPERVISOR attempted to contact CM and MD . Pt/Caregiver able to recall information Able to recall/restate Reinforcement needed No Mod Barium Swallow Setup Exam Setup Radiologist Hung Stovall Level of Consciousness Awake,Alert,Appropriate,Drowsy Mod Barium Swallow-Lat View Textures Lateral View Food Presentation Thin Liquid via Spoon,Thin Liquid via Cup,Pureed Food- Thick,Mech. Soft Food- Regular ,Barium Tablet,Pudding Comment All bolus presentations trialed x2+ to assess for fatigue and consistency. Oral Phase Labial Closure Minimal Impairment Bolus Formation Pooling L/R No Impairment (WFL) Bolus Formation under Tongue No Impairment (WFL) Bolus Formation Scattered Loss No Impairment (WFL) Mastication Rotary Chew Minimal Impairment Mastication Munching Minimal Impairment Mastication Lateralization Minimal Impairment Lingual Movement Mild Impairment Residue Clearing Mild Impairment Pharyngeal Phase A/P Lingual Propulsion Spills No Impairment (WFL) Swallow Response Delay No Impairment (WFL) Base of Tongue No Impairment (WFL) Epiglottic Coverage Minimal Impairment Laryngeal Elevation Minimal Impairment Vallecular Retention Clearing Minimal Impairment Pharyn. Wall Residue Clearing Minimal Impairment Piriform Sinus Retention No Impairment (WFL) Aspiration? Yes Degree of Aspiration Small When aspirated During the swallow Consistencies Aspirated Thin liquid via cup Silent aspiration? No Reason for aspiration Large bolus amount and reduced hyolaryngeal excursion and elevation Mod Barium Swallow-AP View Performed Mod Barium Swallow A/P View Test Not Applicable/Performed PHYSICIAN CERTIFICATION: I certify the specified therapy services for Hung Maravilla are required, authorized, and reviewed every 30 days.
--- NOTE | 2024-08-31 18:17 | EXP.DC.SUM ---
General Admission date:: 08/24/24 HPI HPI HPI: Mr. Maravilla is a 74-year-old [place] admitted for common bile duct obstruction and total bili 2.6, alk phos 553, AST 369 at time of admission. CAT scan shows dilated common bile duct with probable choledocholithiasis. The patient did have cholecystectomy 3 years ago with Nathen Carl MD here at [facility]). The patient is starting to have some mild decline in cognitive status with mild hypotension and signs of possible early cholangitis. ERCP is performed for clearance of the biliary tree urgently. Hospital Course Hospital Course Hospital Course: 74-year-old [place] with past medical history of Parkinson's disease, hypertension, diabetes, CKD, CVD, anemia, gout, hyperlipidemia, diastolic heart failure. Patient presents complaining of abdominal discomfort after eating starting the day. Patient jaundice, with total bili 2.6, alk phos 553, AST 369 at time of admission. Patient admitted with choledocholithiasis. Dominick pus on ERCP with stent placement. Symptoms consistent with sepsis and cholangitis. He continues to require ICU level care. Continue broad-spectrum antibiotics. Repeat blood cultures today. GI continues to assist with care. Problems addressed as follows: Acute metabolic encephalopathy, resolved Sepsis, resolved Cholangitis, resolved Choledocholithiasis, resolved Bacteremia COVID-19 Physical deconditioning ? GI evaluated with ERCP on 08/24 with pus and 3 stone removal. - Will need repeat ERCP in 3 months with removal of biliary stent. - Initial Blood cultures PCR shows Enterococcus, E. coli, Klebsiella. Repeat no growth to date. - Bacteremia treated with ceftriaxone, vancomycin, Unasyn as sensitivities resulted. ? Can continue IM ertapenem 1 g daily until end date 09/03/24 for bacteremia. - Patient continues to be do well, still has significant physical deconditioning. Continues to have waxing and waning in mentation likely from hospital-acquired delirium. - PT/OT recommended SNF. [facility] graciously accepted patient. Parkinson's disease: Carbidopa/levodopa 4 times a day, caution with delirium medications due to risk for extraparametal symptoms and NMS Diabetes: Patient states he no longer requires diabetic medication at home. A1c historically less than 6 over the past year. twice daily AC Accu-Cheks with sliding scale insulin coverage if needed. CKD: Minimize use of nephrotoxic drugs Diastolic heart failure: Continue Lasix as needed. CVD: Continue aspirin, statin. Gout: Allopurinol 100 mg p.o. daily Hyperlipidemia: Simvastatin 20 mg p.o. daily Anemia of chronic disease. Hemoglobin between 8 and 9. Exam Data for Last 24 hours Vital signs and Labs for Last 24 Hours: Temp Pulse Resp BP Pulse Ox O2 Del Method O2 Flow Rate 97.5 F L 64 21 150/71 H 96 Nasal Cannula 3 08/31/24 12:00 08/31/24 14:43 08/31/24 12:00 08/31/24 12:00 08/31/24 14:43 08/31/24 16:40 08/31/24 16:40 Laboratory Results - last 24 hr 08/30/24 20:25: Vancomycin Trough 8.5 08/30/24 21:15: POC Glucose 114 H 08/31/24 05:29: POC Glucose 92 08/31/24 05:52: WBC 3.2 L D, RBC 2.50 L, Hgb 8.1 L, Hct 24.9 L, MCV 99.6 H, MCH 32.4 H, MCHC 32.5, RDW 13.7, Plt Count 112 L, MPV 11.1 H, Neut % (Auto) 62.0, Lymph % (Auto) 21.5, [place] % (Auto) 8.1, Eos % (Auto) 7.2, Baso % (Auto) 0.3, Neut # (Auto) 2.0, Lymph # (Auto) 0.7, [place] # (Auto) 0.3, Eos # (Auto) 0.2, Baso # (Auto) 0.0, Sodium 137, Potassium 4.3, Chloride 112 H, Carbon Dioxide 29, Anion Gap 0.3 L, BUN 32 H, Creatinine 1.40 H, Estimated Creat Clear 52, Estimated GFR 49 L, Est GFR ( Amer) 60, Glucose 86, Calcium 8.4, Magnesium 2.5 H, Total Bilirubin 0.7, AST 35 D, ALT 8 L D, Alkaline Phosphatase 148 H, Total Protein 5.2 L, Albumin 2.9 L, Globulin 2.3, Albumin/Globulin Ratio 1.3 I & O for Last 24 hours: Intake & Output 08/28/24 08/29/24 08/30/24 08/31/24 23:59 23:59 23:59 23:59 Intake Total 1084 / 1584 1560 / 2568 1468 / 1718 250 / 250 Output Total 850 / 850 400 / 550 700 / 850 400 / 400 Balance 234 / 734 1159 768 / 868 -150 / -150 Weight 75.841 kg 77.337 kg 80.286 kg 80.014 kg Microbiology Reports for the Last 24 Hours: Microbiology 08/27/24 04:45 Blood Blood Culture - Preliminary NO GROWTH AFTER 4 DAYS 08/27/24 04:45 Blood Blood Culture - Preliminary NO GROWTH AFTER 4 DAYS Constitutional Constitutional: no acute distress, average body habitus, chronically ill appearing and cooperative *Routine HEENT Exam Head: Present normocephalic and atraumatic Eye: Present EOMI and PERRL ENT: Present mucous membranes moist *Routine Neck Exam Neck: Present supple; Absent lymphadenopathy *Routine Respiratory Exam Respiratory: Present CTA bilaterally and normal respiratory effort; Absent respiratory distress, rhonchi, wheezes or crackles *Routine Cardiovascular Exam Cardiovascular: Present RRR *Routine Abdominal Exam Abdominal: Present soft and normoactive bowel sounds; Absent tenderness *Routine Rectal Exam Patient deferred: visual exam *Routine Exam Patient deferred: penile exam *Routine Extremities Exam Extremities: Absent cyanosis, clubbing or edema *Routine Skin Exam Skin: Present intact and warm; Absent rash *Routine Neurological Exam Neurological: Present alert, CN II-XII intact and moving all extremities; Absent altered mental status Comments: cogwheeling in UE Bilat. stable but shuffling gait (baseline) Results Data Completed and Pending Labs on day of discharge: Labs from last 24 hours 08/31/24 08/31/24 08/30/24 05:52 05:29 21:15 WBC 3.2 L D RBC 2.50 L Hgb 8.1 L Hct 24.9 L MCV 99.6 H MCH 32.4 H MCHC 32.5 RDW 13.7 Plt Count 112 L MPV 11.1 H Neut % (Auto) 62.0 Lymph % (Auto) 21.5 [place] % (Auto) 8.1 Eos % (Auto) 7.2 Baso % (Auto) 0.3 Neut # (Auto) 2.0 Lymph # (Auto) 0.7 [place] # (Auto) 0.3 Eos # (Auto) 0.2 Baso # (Auto) 0.0 Sodium 137 Potassium 4.3 Chloride 112 H Carbon Dioxide 29 Anion Gap 0.3 L BUN 32 H Creatinine 1.40 H Estimated Creat Clear 52 Estimated GFR 49 L Est GFR ( Amer) 60 Glucose 86 POC Glucose 92 114 H Calcium 8.4 Magnesium 2.5 H Total Bilirubin 0.7 AST 35 D ALT 8 L D Alkaline Phosphatase 148 H Total Protein 5.2 L Albumin 2.9 L Globulin 2.3 Albumin/Globulin Ratio 1.3 Vancomycin Trough 08/30/24 20:25 WBC RBC Hgb Hct MCV MCH MCHC RDW Plt Count MPV Neut % (Auto) Lymph % (Auto) [place] % (Auto) Eos % (Auto) Baso % (Auto) Neut # (Auto) Lymph # (Auto) [place] # (Auto) Eos # (Auto) Baso # (Auto) Sodium Potassium Chloride Carbon Dioxide Anion Gap BUN Creatinine Estimated Creat Clear Estimated GFR Est GFR ( Amer) Glucose POC Glucose Calcium Magnesium Total Bilirubin AST ALT Alkaline Phosphatase Total Protein Albumin Globulin Albumin/Globulin Ratio Vancomycin Trough 8.5 Preliminary micro results at discharge 08/27/24 04:45 Blood Culture - Preliminary Blood NO GROWTH AFTER 4 DAYS 08/27/24 04:45 Blood Culture - Preliminary Blood NO GROWTH AFTER 4 DAYS 08/24/24 06:53 Blood Culture - Preliminary Blood Escherichia coli Enterococcus faecium (grp d) 08/24/24 06:53 Blood Culture - Preliminary Blood Escherichia coli DS: Diagnosis Discharge Diagnosis (1) Acute cholangitis: Status: Acute Code(s): K83.09 - Other cholangitis (2) Delirium: Status: Acute Code(s): R41.0 - Disorientation, unspecified (3) Common bile duct dilation: Status: Acute Code(s): K83.8 - Other specified diseases of biliary tract (4) Hyperbilirubinemia: Status: Acute Code(s): E80.6 - Other disorders of bilirubin metabolism (5) Abdominal pain: Status: Acute Code(s): R10.9 - Unspecified abdominal pain (6) Transaminitis: Status: Acute Code(s): R74.01 - Elevation of levels of liver transaminase levels (7) Acute on chronic renal failure: Status: Resolved Code(s): N17.9 - Acute kidney failure, unspecified; N18.9 - Chronic kidney disease, unspecified Qualifiers: Acute renal failure type: unspecified Chronic kidney disease stage 3 subtype: stage 3b (GFR 30-44) Problem details: Improved but needs follow-up with PCP (8) 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 GFR 30-59: Status: Acute Code(s): E10.22 - Type 1 diabetes mellitus with diabetic chronic kidney disease; N18.30 - Chronic kidney disease, stage 3 unspecified (9) Neuropathy: Status: Acute Code(s): G62.9 - Polyneuropathy, unspecified (10) Anemia: Status: Acute Code(s): D64.9 - Anemia, unspecified Qualifiers: Anemia type: unspecified type Qualified Code(s): D64.9 - Anemia, unspecified (11) HTN (hypertension): Status: Chronic Code(s): I10 - Essential (primary) hypertension Qualifiers: Hypertension type: essential hypertension Qualified Code(s): I10 - Essential (primary) hypertension (12) Gout: Status: Chronic Code(s): M10.9 - Gout, unspecified Qualifiers: Gout site: hand Gout etiology: other secondary cause Chronicity: acute Laterality: right Qualified Code(s): 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, right hand (13) HLD (hyperlipidemia): Status: Chronic Code(s): E78.5 - Hyperlipidemia, unspecified Qualifiers: Hyperlipidemia type: other hyperlipidemia Qualified Code(s): E78.49 - Other hyperlipidemia (14) Diastolic heart failure: Status: Chronic Code(s): I50.30 - Unspecified diastolic (congestive) heart failure Qualifiers: Heart failure chronicity: chronic Qualified Code(s): I50.32 - Chronic diastolic (congestive) heart failure (15) Parkinson disease: Status: Acute Code(s): G20.A1 - Parkinson's disease without dyskinesia, without mention of fluctuations (16) Choledocholithiasis: Status: Acute Code(s): K80.50 - Calculus of bile duct without cholangitis or cholecystitis without obstruction Meds Home Medications and Allergies Home Medications ?Medication ?Instructions ?Recorded ?Confirmed ?Type docusate sodium 50 mg capsule 100 mg PO DAILY 12/18/23 08/24/24 History simvastatin 20 mg tablet 20 mg PO HS 90 days #90 tabs 12/25/23 08/24/24 Rx pantoprazole 40 mg tablet,delayed 40 mg PO BID 06/18/24 08/24/24 History release carbidopa ER 50 mg-levodopa 200 mg 1 tab PO QID #120 tabs 06/24/24 08/24/24 Rx tablet,extended release aspirin 81 mg tablet,delayed 81 mg PO DAILY 07/08/24 08/24/24 History release (Adult Low Dose Aspirin) mecobalamin (vitamin B12) 1,000 1,000 mcg PO DAILY 07/08/24 08/24/24 History mcg lozenges allopurinol 100 mg tablet 100 mg PO DAILY 08/24/24 08/24/24 History entacapone 200 mg tablet 200 mg PO QID 08/24/24 08/24/24 History folic acid 1 mg tablet 1 mg PO DAILY 08/24/24 08/24/24 History furosemide 20 mg tablet 20 mg PO DAILYP PRN edema 08/24/24 08/24/24 History hydrocodone 10 mg-acetaminophen 1 tab PO Q4HP PRN Moderate Pain 08/24/24 08/24/24 History 325 mg tablet (Scale Score 5-6) carvedilol 6.25 mg tablet 6.25 mg PO BID 30 days #60 tabs 08/31/24 Rx gabapentin 600 mg tablet 300 mg (1/2 x 600 mg) PO TID 30 08/31/24 Rx days #45 tabs New Prescriptions to Start Prescriptions: carvedilol Kwan Cade gabapentin Kwan Cade Allergies Allergy/AdvReac Type Severity Reaction Status Date / Time mupirocin Allergy Rash Verified 08/24/24 12:12 Discharge Plan Disposition Patient Disposition: Xfer SNF Condition: Fair Discharge Order Discharge Orders: Discharge Order (Routine); Ordered 08/31/24 Ordered By: Kwan Cade Follow up Plan Follow up with: Timmy Sanchez II, MD [Staff Physician] - 09/09/24 Prescriptions/Medication Reconciliation: New carvedilol 6.25 mg Tablet 6.25 mg PO BID 30 Days Qty: 60 0RF Continued docusate sodium 50 mg capsule 100 mg PO DAILY carbidopa-levodopa 50-200 mg tablet extended release 1 tab PO QID Qty: 120 4RF mecobalamin (vitamin B12) 1,000 mcg lozenge 1,000 mcg PO DAILY Rx Instructions: allow to dissolve in mouth OR may chew lightly before swallowing simvastatin 20 mg tablet 20 mg PO HS 90 Days Qty: 90 4RF aspirin [Adult Low Dose Aspirin] 81 mg tablet,delayed release (DR/EC) 81 mg PO DAILY pantoprazole 40 mg tablet,delayed release (DR/EC) 40 mg PO BID Patient Comments: TAKE ONE TABLET BY MOUTH TWICE DAILY folic acid 1 mg tablet 1 mg PO DAILY Patient Comments: TAKE ONE TABLET BY MOUTH EVERY DAY allopurinol 100 mg tablet 100 mg PO DAILY hydrocodone-acetaminophen 10-325 mg tablet 1 tab PO Q4HP PRN (Reason: Moderate Pain (Scale Score 5-6)) entacapone 200 mg tablet 200 mg PO QID Rx Instructions: administer at the same time as l-dopa/carbidopa dose furosemide 20 mg tablet 20 mg PO DAILYP PRN (Reason: edema) Changed gabapentin 600 mg tablet 300 mg PO TID 30 Days Qty: 45 0RF Problem Reconciliation Problems Reviewed?: Yes Patient Discharge Instructions Patient Instructions: DI for Kidney Failure, DI for Endoscopic Retrograde Cholangiopancreatography, DI for COVID-19 (Suspected or Confirmed ), DI for Bacteremia-Adult Print Language: [place] Providers Primary Care Provider: Kwan Beth Admlata Provider: Javier Cast Attending Provider: Javier Cast
[2024-08-31 21:28] LABS: POC Glucose,Bedside 100 (70-110)
[2024-08-31 21:28] LABS: POC Glucose,Bedside 81 (70-110)
== END 2024-08-31 22:36 | DRG 444 ==
LOC: ER 02:27 → 2ND 06:16 → ICU 16:24 → 2ND 08-26 13:56
PROVIDERS: Internal Medicine Adolescent Medicine; Internal Medicine Gastroenterology; Student in an Organized Health Care Education/Training Program; Admitting Provider Internal Medicine; Emergency Provider Emergency Medicine; PCP Internal Medicine; Visit Provider Internal Medicine
PROC: 0F798DZ Dilation of Common Bile Duct with Intraluminal Device, Via Natural or Artificial Opening Endoscopic (ICD-10-PCS; principal; 2024-08-24 14:30)
DX: K80.32 Calculus of bile duct with acute cholangitis without obstruction (principal); A41.9 Sepsis, unspecified organism; U07.1 COVID-19; I13.0 Hypertensive heart and chronic kidney disease with heart failure and stage 1 through stage 4 chronic kidney disease, or unspecified chronic kidney disease; N17.9 Acute kidney failure, unspecified; I50.32 Chronic diastolic (congestive) heart failure; F02.811 Dementia in other diseases classified elsewhere, unspecified severity, with agitation; N18.32 Chronic kidney disease, stage 3b; G62.9 Polyneuropathy, unspecified; I25.10 Atherosclerotic heart disease of native coronary artery without angina pectoris; D64.9 Anemia, unspecified; M10.441 Other secondary gout, right hand; E78.49 Other hyperlipidemia; G20.A1 Parkinson's disease without dyskinesia, without mention of fluctuations; E11.22 Type 2 diabetes mellitus with diabetic chronic kidney disease; Z79.899 Other long term (current) drug therapy
CPT/HCPCS: 36415; 71045; 71275; 74177; 74230; 74330; 76000; 80053; 80202; 82140; 82150; 82803; 82962; 83605; 83690; 83735; 83880; 84145; 84484; 85007; 85025; 85378; 85610; 87040; 87077; 87186; 87633; 92610; 92611; 93005; 94640; 94761; 97110; 97162; 97166; 97530; 99285; J3490; C1726; C1874; C1889; J0131; J0295; J0696; J1100; J1200; J1630; J1885; J1940; J2060; J2185; J2270; J2405; J2543; J3010; J3370; J3372; J7030; J7050; J7120; J7620; Q9967

== ENCOUNTER 2024-10-26 08:07 | Inpatient (IN) | payer MEDICARE, OTHER, SELFPAY ==
[2024-10-26] VITALS (10 sets, daily range): BP systolic 91–124; BP diastolic 37–73; PULSE 47–80; RESP 13–22; TEMP 36.4–37.3; O2SAT 94–100; BMI 19.9; BMI 20.9
--- NOTE | 2024-10-26 08:06 | ECG_ITS ---
APPROVED REPORT Exam: Resting ECG HR:72 bpm ECG Measurements Heart Rate 72 AXES IA 175 P 97 QRSd 106 QRS 2 QT 387 T 11 QTc 412 Conclusion SINUS RHYTHM Nonspecific ST changes No STEMI Electronically signed by : LAW MOSES, 10/26/2024 15:11:35
--- NOTE | 2024-10-26 08:07 | PC.NURSE ---
Dr. Ascencio at [facility] for pt eval
--- NOTE | 2024-10-26 08:08 | CT_ITS ---
FINAL REPORT TECHNIQUE: Axial imaging of the chest is obtained after the administration of contrast. 3-D MIP reformatted images were also obtained and reviewed per PE protocol. This study was performed with techniques to keep radiation doses as low as reasonably achievable (ALARA). Individualized dose reduction techniques using automated exposure control or adjustment of mA and/or kV according to the patient's size were employed. CLINICAL HISTORY: acute resp failure, recent syncope COMPARISON: 08/24/2024 FINDINGS: There are pulmonary emboli present in the main pulmonary arteries bilaterally, which extend into the bilateral upper and lower lobe arteries. There is no evidence of right heart strain. There is no aortic dissection. Heart size is normal. There is a stable left thyroid nodule also seen on the prior CT, 4.7 cm in size. There is no mediastinal, hilar, or axillary lymphadenopathy. The 7 mm left lower lobe pulmonary nodule noted on the prior CT is once again identified. There is evidence of prior granulomatous disease. There are new interstitial opacities present in the right lung when compared to the prior exam, edema or pneumonia. Trace bilateral pleural effusions are present. A small pericardial effusion is present as well. No acute osseous abnormality. IMPRESSION: Pulmonary emboli in the main pulmonary arteries bilaterally, which extend into the bilateral upper and lower lobe arteries. There is no evidence of right heart strain. There are new interstitial opacities in the right lung, pulmonary edema or pneumonia. These results were called to Dr. Ascencio in the [facility] emergency room on 10/26/2024 at 10:35 AM. Reviewed, Interpreted and Dictated by Fiordaliza Silveira MD Transcribed by Akua Almeida Authenticated and [facility]
--- NOTE | 2024-10-26 08:08 | CT_ITS ---
FINAL REPORT TECHNIQUE: Thin section axial images were obtained from skull base to vertex without contrast. Coronal reconstruction images were obtained from the axial data. Exam was performed using dose reduction techniques such as automated exposure control, adjustment of the mA and kV according to patient size, and use of iterative reconstruction technique. CLINICAL HISTORY: AMS, syncope, general weakness COMPARISON: 06/17/2024 FINDINGS: There is atrophy. No mass effect or midline shift. No intracranial hemorrhage. No hydrocephalus. Periventricular low density is likely related to changes of chronic small vessel ischemia. Chronic bilateral lacunar infarcts are noted in the basal ganglia bilaterally, also seen on the prior CT. The basilar cisterns are preserved. The posterior fossa is without acute abnormality. The soft tissues are without acute abnormality. No acute osseous abnormality is identified. IMPRESSION: No acute intracranial abnormality. Atrophy and changes suggesting chronic small vessel ischemia. Reviewed, Interpreted and Dictated by Fiordaliza Silveira MD Transcribed by Akua Almeida Authenticated and [facility]
--- NOTE | 2024-10-26 08:08 | CT_ITS ---
FINAL REPORT TECHNIQUE: Thin section axial images are obtained through the abdomen and pelvis after intravenous contrast. Reconstruction images were obtained from the axial data. Exam was performed using dose reduction techniques. This study was performed with techniques to keep radiation doses as low as reasonably achievable (ALARA). Individualized dose reduction techniques using automated exposure control or adjustment of mA and/or kV according to the patient's size were employed. CLINICAL HISTORY: severe generalized abd pain/TTP COMPARISON: 08/24/2024 FINDINGS: LUNG BASES: New interstitial opacities are present in the right lung, edema or pneumonia. Heart size is normal. Bilateral pulmonary emboli are noted in the main pulmonary arteries, which extend into the bilateral upper and lower lobe arteries. No evidence of right heart strain is present. LIVER: Pneumobilia is present. No focal lesion. GALLBLADDER/BILIARY SYSTEM: The gallbladder has been surgically resected. There has been interval placement of a common bile duct stent since the prior exam. The soft tissue density in the distal common bile duct seen on the prior exam is no longer visualized. SPLEEN: Splenomegaly is present, with the spleen measuring 16.7 cm. PANCREAS: Unremarkable. ADRENALS: Unremarkable. KIDNEYS/URETERS/BLADDER: A left nephrectomy has been performed. There are several low-density lesions in the right kidney, that appear consistent with renal cysts. GI TRACT: No small bowel obstruction or dilatation. The appendix is not visualized, however there are no secondary signs of appendicitis. There is a large amount of stool in the colon, with wall thickening in the sigmoid colon and rectum with associated pericolonic inflammatory change, consistent with stercoral colitis, new since prior exam of 08/24/2024. PELVIC ORGANS: Unremarkable for age. LYMPH NODES/RETROPERITONEUM/MESENTERY: No lymphadenopathy. No abdominal aortic aneurysm. ABDOMINAL WALL: The abdominal wall is intact. FREE FLUID: A small amount of ascites is present in the left lower abdomen and pelvis. BONES: No acute osseous abnormality. IMPRESSION: There has been interval placement of a common bile duct stent since the prior exam, and pneumobilia is present. The soft tissue density in the distal common bile duct is not seen on this examination. There is a large amount of stool in the colon with wall thickening of the sigmoid colon and rectum, and associated pericolonic inflammatory change, consistent with stercoral colitis. Small amount of ascites is present in the left abdomen. Reviewed, Interpreted and Dictated by Fiordaliza Silveira MD Transcribed by Akua Almeida Authenticated and . [facility]
--- NOTE | 2024-10-26 08:15 | ED_ITS ---
Discharge Plan Disposition Patient Disposition: Admitted Condition: Good Clinical Impressions Clinical Impression: Bilateral pulmonary embolism, Stercoral colitis, Adult failure to thrive, Sacral wound Discharge ED Provider: Vale Ascencio General Adult HPI General Chief complaint: Syncope Stated complaint: SYNCOPE Time Seen by Provider: 10/26/24 08:10 History of Present Illness HPI narrative: This patient is a 74-year-old male with a history of Parkinson's disease, hypertension, diabetes, CKD, CVD, anemia, gout, hyperlipidemia, diastolic heart failure presenting to the emergency department for evaluation with concern for generally feeling unwell. According to EMS, they were called to the patient's home by family member who brought patient home from nursing facility 6 days ago. Since coming home, the patient had reportedly been doing well, but has not wanted to eat or drink the last day or so and then had a syncopal episode today. They also noted concerns for sacral wounds, which family is not treating at home. They report that the patient was brought home from the nurse facility because they were not happy with the care that was received there. EMS notes that en route, he was complaining of pain all over, especially in his abdomen, and he also noted that he had a cough and hypoxia for which he was put on 2 L nasal cannula. I reviewed medical records and noted that the patient was discharged there 08/31/2024 after hospital stay for metabolic encephalopathy, sepsis, cholangitis, choledocholithiasis. He underwent ERCP at that time and it was recommended that he have a follow-up ERCP in 3 months with removal of biliary stent. Currently, patient is alert and oriented x 4 but states he does not know how long is been feeling bad. He states that he feels awful and is hurting all over, especially his belly. Pain is not localizable in his abdomen. He does not provide further history, as he is very ill-appearing. Related Data Home Medications ?Medication ?Instructions ?Recorded ?Confirmed docusate sodium 50 mg capsule 100 mg PO DAILY 12/18/23 10/26/24 pantoprazole 40 mg tablet,delayed 40 mg PO BID 06/18/24 10/26/24 release aspirin 81 mg tablet,delayed 81 mg PO DAILY 07/08/24 10/26/24 release (Adult Low Dose Aspirin) mecobalamin (vitamin B12) 1,000 1,000 mcg PO DAILY 07/08/24 10/26/24 mcg lozenges allopurinol 100 mg tablet 100 mg PO DAILY 08/24/24 10/26/24 entacapone 200 mg tablet 200 mg PO QID 08/24/24 10/26/24 folic acid 1 mg tablet 1 mg PO DAILY 08/24/24 10/26/24 furosemide 20 mg tablet 20 mg PO DAILYP PRN edema 08/24/24 10/26/24 Previous Rx's ?Medication ?Instructions ?Recorded simvastatin 20 mg tablet 20 mg PO HS 90 days #90 tabs 12/25/23 carbidopa ER 50 mg-levodopa 200 mg 1 tab PO QID #120 tabs 06/24/24 tablet,extended release gabapentin 600 mg tablet 300 mg (1/2 x 600 mg) PO TID 30 08/31/24 days #45 tabs hydrocodone 10 mg-acetaminophen 1 tab PO Q6HP PRN Moderate Pain 10/20/24 325 mg tablet (Scale Score 5-6) 30 days #120 tabs Allergies Allergy/AdvReac Type Severity Reaction Status Date / Time mupirocin Allergy Rash Verified 08/24/24 12:12 [facility] Disclaimer: The information contained in this section may have been updated after the patient was seen, as this information can be updated by other users. Medical History Anemia of acute infection B12 deficiency Urinary hesitancy KYLAH (acute kidney injury) Chronic neck pain Therapeutic misadventure Syncope and collapse Acute on chronic renal failure Thoracic back pain Enlarged prostate Mass of kidney Abnormal transaminases Chest pain Parkinson's disease with dyskinesia, with fluctuations Chronic pain Facial lesion 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 GFR 30-59 CVD (cardiovascular disease) Binocular vision loss Constipation Neuropathy Acute hip pain Hip pain, right REM behavioral disorder Chronic renal failure Thyroid nodule COVID-19 Renal malignant neoplasm HLD (hyperlipidemia) Renal cell carcinoma of left kidney Gout Renal insufficiency Anemia Diabetes Thyroid nodule Enlarged thyroid Deviated septum Thyroid mass Healthcare maintenance Acute ischemic stroke History of TIA (transient ischemic attack) DM type 2 (diabetes mellitus, type 2) COPD (chronic obstructive pulmonary disease) GERD (gastroesophageal reflux disease) Single kidney Heart failure TIA (transient ischemic attack) Daytime somnolence Parkinson disease Surgical History Status post gastrointestinal surgery History of cholecystectomy Hx of appendectomy H/O left nephrectomy Family History Other No significant family history Social History Smoking Status: Former smoker tobacco type: cigarettes second hand exposure: Yes alcohol intake: current alcohol intake frequency: a few times a month substance use type: denies use current occupational status: retired Travel in the last 8 weeks: None household members: spouse housing: house marital status: current occupational exposures/hazards: No caffeine: No Have you lived/traveled outside [place] in past 30 days?: No Contact w/someone who lives/traveled outside US past 30 days?: No Exposure to someone with infectious disease in past 14 days?: No Do you have a fever (greater than 100.4 F or 38 C)?: No Have you tested positive for COVID-19: No Exposed to someone with COVID-19 in past 14 days?: No Do you have a sore throat?: No Do you have a cough?: No Do you have any weakness?: No Do you have any diarrhea?: No Are you experiencing any unusual bleeding?: No Do you have any muscle aches/pain?: No Do you have any abdominal pain?: No Are you experiencing loss of taste or smell?: No Other Medical History Have you received the Flu Vaccine for this season: No Have you received the Pneumonia Vaccine: No ROS Obtained: Yes Systems reviewed as appropriate & no additional complaints except as documented Physical Exam General General appearance: alert Comment: Thin, frail, ill-appearing Head Head exam: atraumatic and normocephalic Eye Eye exam: Present normal appearance, PERRL and EOMI ENT ENT exam: Present mucous membranes dry and normal external ear exam Neck Neck exam: Present normal inspection and full ROM Chest Chest inspection: Present normal inspection and symmetric chest wall rise Respiratory Respiratory exam: Present other (Bibasilar rhonchi); Absent respiratory distress, accessory muscle use or prolonged expiratory phase Cardiovascular Cardiovascular exam: Present regular rate and normal rhythm Abdominal Exam Abdominal exam: Present tenderness and guarding (Generalized); Absent rebound or rigidity Back Exam Comment: sacral pressure wound Neurological Exam Neurological exam: Present alert, oriented X3 and other (generally weak without focal deficit) Psychiatric Psychiatric exam: Present flat affect Skin Skin exam: Present dry and pallor Medical Decision Making Medical Records Screening: Per USPSTF and CDC recommendations, given the prevalence of disease in our region, it is our hospital?s policy to screen for HIV and viral Hepatitis for all patients aged 18 and over and those with ongoing risk factors. Antoine Inquiry Pt receiving controlled substance: No Vital Signs: 10/26/24 08:07 10/26/24 09:00 10/26/24 09:31 Temperature 99.1 F Temperature Source Rectal Pulse Rate 71 71 Pulse Rate [Left Radial] 67 Respiratory Rate 18 13 20 Blood Pressure 97/53 L 95/49 L Blood Pressure [Right Arm] 91/46 L Blood Pressure Mean [Right Arm] 61 Blood Pressure Source [Right Arm] Automatic Cuff Blood Pressure Position [Right Arm] Supine 02 Sat by Pulse Oximetry 97 100 98 Oxygen Delivery Method Nasal Cannula Nasal Cannula Nasal Cannula Oxygen Flow Rate (LPM) 3 3 3 10/26/24 10:03 10/26/24 10:30 10/26/24 11:00 Temperature Temperature Source Pulse Rate 47 L 80 74 Pulse Rate [Left Radial] Respiratory Rate 14 17 15 Blood Pressure 124/51 L 119/64 110/61 Blood Pressure [Right Arm] Blood Pressure Mean [Right Arm] Blood Pressure Source [Right Arm] Blood Pressure Position [Right Arm] 02 Sat by Pulse Oximetry 98 100 100 Oxygen Delivery Method Nasal Cannula Nasal Cannula Nasal Cannula Oxygen Flow Rate (LPM) 3 3 3 Lab Data Lab Results 10/26/24 08:55: WBC 14.0 H, RBC 3.15 L, Hgb 9.0 L, Hct 28.2 L, MCV 89.5, MCH 28.6, MCHC 31.9, RDW 14.6, Plt Count 194, MPV 11.2 H, Neut % (Auto) 87.6 H, L ymph % (Auto) 7.0 L, [place] % (Auto) 3.9, Eos % (Auto) 0.2, Baso % (Auto) 0.2, N eut # (Auto) 12.3 H, Lymph # (Auto) 1.0, [place] # (Auto) 0.5, Eos # (Auto) 0.0, Baso # (Auto) 0.0, Sodium 138, Potassium 4.5, Chloride 106, Carbon Dioxide 29, Anion Gap 7.5, BUN 34 H, Creatinine 1.30 H, Estimated GFR 54 L, Est GFR ( Amer) 65, Glucose 115 H, Lactate 1.3, Calcium 8.5, Phosphorus 3.4, Magnesium 1.5 L, Total Bilirubin 0.7, AST 21, ALT 8 L, Alkaline Phosphatase 106, Troponin I < 0.01, NT-Pro-B Natriuret Pep 1590 H, Total Protein 5.9 L, Albumin 3.5, Globulin 2.4, Albumin/Globulin Ratio 1.5, Lipase 49, TSH 3.88, Thyroxine (T4) 9.6, Acetone Level None detected 10/26/24 09:14: SARS-CoV-2 (PCR) Not detected, Influenza A Untype (PCR) Not detected, Influenza Type B (PCR) Not detected 10/26/24 09:25: VBG pH 7.41, VBG pCO2 36.1, VBG pO2 23.6 L, VBG HCO3 22.5 L, VBG Total CO2 23.6, VBG O2 Saturation 39.7 L, VBG Base Excess -2.1, VBG Lactic Acid 1.2 10/26/24 10:32: Urine Color Vale, Urine Appearance Clear, Urine pH 5.5, Ur Specific [place] 1.020, Urine Protein Trace, Urine Glucose (UA) Negative, Urine Ketones 1+, Urine Blood Negative, Urine Nitrate Negative, Urine Bilirubin 2+ A, Urine Urobilinogen 0.2, Ur Leukocyte Esterase Negative, Urine RBC Occasional, Urine WBC None, Ur Squamous Epith Cells Occasional, Urine Bacteria 2+ 10/26/24 08:55 10/26/24 08:55 Orders (Tests/Meds): ED MEDICATIONS Generic Name Dose Route Start Last Admin Trade Name Freq PRN Reason Stop Dose Admin Sodium Chloride 10 ml 10/26/24 09:53 10/26/24 09:54 Sodium Chloride 0.9% 10ml Syr (Rad Only) IV 11/25/24 09:52 10 ml NEEDED PRN Administration Maintain IV Site Discontinued Medications Generic Name Dose Route Start Last Admin Trade Name Freq PRN Reason Stop Dose Admin Enoxaparin Sodium 60 mg 10/26/24 10:44 Enoxaparin 100mg/Ml Syringe 1 mg/kg (60 mg) 10/26/24 10:45 SUBCUT ONCE ONE Lactated Ringer's 1,000 mls @ 999 mls/hr 10/26/24 08:11 10/26/24 10:38 Lactated Ringer's 1000 Ml Bag IV 10/26/24 09:11 999 mls/hr .Q1H1M ONE Administration Magnesium Sulfate 2 gm in 50 mls @ 50 mls/hr 10/26/24 09:35 10/26/24 10:38 Magnesium Sulfate 2gm/50ml Premix IV 10/26/24 10:34 50 mls/hr ONCE ONE Administration Iopamidol 80 ml 10/26/24 09:53 10/26/24 09:54 Iopamidol-370 (76%);100ml Bottle IV 10/26/24 09:54 80 ml ONCE ONE Administration Morphine Sulfate 2 mg 10/26/24 08:11 Morphine 2mg/Ml Syringe IV 10/26/24 08:12 ONCE ONE Ondansetron HCl 4 mg 10/26/24 08:11 10/26/24 10:38 Ondansetron 4mg/2ml Vial IV 10/26/24 08:12 4 mg ONCE ONE Administration Sodium Chloride 50 ml 10/26/24 09:53 10/26/24 09:54 0.9 % Sodium Chloride 50 Ml Vial IV 10/26/24 09:54 50 ml ONCE ONE Administration ORDERS Category Date Time Status CT abdomen pelvis w con Stat Cat Scan 10/26/24 08:[address] angio chest PE protocol Stat Cat Scan 10/26/24 08:[address] head/brain wo con Stat Cat Scan 10/26/24 08:08 Completed Gastroenterology Consult [Consult to Gastroenterology] Cons 10/26/24 10:56 Active [CONS] Routine Acetone, Serum (Rapid) Stat Lab 10/26/24 08:55 Completed BNP [NT Pro Brain Natriuretic Pep.] Stat Lab 10/26/24 08:55 Completed Complete Blood Count Auto Diff Stat Lab 10/26/24 08:55 Completed Comprehensive Metabolic Panel Stat Lab 10/26/24 08:55 Completed Diarrhea 23 Panel, PCR Stat Lab 10/26/24 08:11 Ordered Lactic Acid Stat Lab 10/26/24 08:55 Completed Lipase Stat Lab 10/26/24 08:55 Completed MAG [Magnesium] Stat Lab 10/26/24 08:55 Completed PHOS [Phosphorous] Stat Lab 10/26/24 08:55 Completed Rapid PCR Covid and Flu A/B Stat Lab 10/26/24 09:14 Completed T4 (Thyroxine) Stat Lab 10/26/24 08:55 Completed TSH [Thyroid Stimulating Hormone] Stat Lab 10/26/24 08:55 Completed Trop I [Troponin I] Stat Lab 10/26/24 08:55 Completed Troponin I Q3H Lab 10/26/24 11:13 Received Troponin I Q3H Lab 10/26/24 14:15 Ordered UA [Urinalysis and Microscopic] Stat Lab 10/26/24 10:32 Completed Blood Culture Stat Micro 10/26/24 09:25 Received Urine Culture Stat Micro 10/26/24 10:32 Received VBG [Venous Blood Gas] Stat RT 10/26/24 09:25 Completed CA echo doppler complete Stat Y 10/26/24 10:43 Completed ECG Data Tracing #1: I reviewed this ECG and interpreted as documented below: Normal sinus rhythm with a ventricular of 72 bpm. Motion artifact degraded. No acute STEMI. ECG initial impression date: 10/26/24 ECG initial impression time: 08:10 Medical Decision Narrative: In summary, this patient is a 74-year-old male presenting to the Emergency Department for evaluation of feeling unwell, anorexia, syncope, general weakness, abdominal pain. Differential diagnoses considered include but are not limited to sepsis, bowel obstruction, colitis, pancreatitis, pneumonia, ACS, respiratory failure. Ruling out the most morbid conditions drove assessment. It should be noted patient's history includes CKD, type 2 diabetes, hypertension, heart failure, Parkinson's which likely are not at goal therapy. This complicates all aspects of care by increasing patient's risk for morbidity. I reviewed patient's past medical records and noted admission in August with discharge to [facility] after ERCP for cholangitis/choledocholithiasis as detailed in HPI. On exam, the patient is lying in bed. He is chronically ill-appearing, but he is alert and oriented. He does not have any focal deficits, though is very generally weak. He has sacral wound that does not appear grossly infected. He complains of severe pain everywhere, especially in his abdomen. He does have generalized abdominal tenderness and guarding. He was initially hypotensive, but fluid responsive. Workup included broad lab evaluation to evaluate for infectious, metabolic, cardiac causes of symptoms as well as CT head, CT angiogram of the chest, CT abdomen and pelvis with contrast. EKG was obtained which is degraded with motion artifact but no acute STEMI noted. Patient was given a bolus of IV fluids as well as IV morphine and Zofran for symptomatic improvement. I independently interpreted CT scan prior to the radiologist read and noted large stool burden. He has pneumobilia, likely from recent ERCP. He also has large bilateral PEs. Please see their read for final interpretation. On multiple subsequent reassessments, pressure continued to improve and after infusion of 1 L bolus of IV fluids. I did not order additional fluids because patient has mildly elevated BNP with history of cardiac dysfunction. He had improved perfusion and no longer had hypotension after administration of IV fluids. Labs were obtained that demonstrated mild leukocytosis, which is nonspecific. Chemistry demonstrates creatinine is around his baseline without significant KYLAH. He has mild hypomagnesemia. I did order IV replacement of magnesium. Given bilateral PEs, I discussed case with cardiology who recommended echo to rule out heart strain and of course therapeutic anticoagulation. I ordered therapeutic Lovenox. I do not feel he would tolerate bedside disimpaction given his significant pain with tenderness to palpation of his gluteal region related to his pressure wounds. Given this, I discussed case with both Dr. Rodarte with general surgery and with gastroenterology who recommended aggressive regimen with enemas such as mineral oil enemas, oral medications such as lactulose.. Ultimately given that patient is critically ill with bilateral PEs, stercoral colitis, failure to thrive, I feel he would benefit from admission for further evaluation and management. I had an interactive discussion with the hospitalist who admitted the patient in stable condition Critical Care Critical Care Time Critical Care Time: Yes Attestation: On 10/26/24, the high probability of a clinically significant, sudden or life threatening deterioration of the following system(s) required my full and direct attention, intervention and personal management. The time I documented below is in addition to time spent performing reported procedures but includes the following listed in this critical care notation. Total Time Total Critical Care Time: 45
[2024-10-26 09:05] LABS: Basophils % 0.2 % (0.1-2.0); Eosinophils % 0.2 % (0.1-12.0); Hematocrit 28.2 % (42.0-52.0); Mean Corpuscular HGB Conc 31.9 g/dL (31.8-35.4); Mean Corpuscular Hemoglobin 28.6 pg (27.0-31.2); Mean Corpuscular Volume 89.5 fl (80-94); Mean Platelet Volume 11.2 fl (7.4-10.4); Monocytes # 0.5 K/mm3 (0.1-1.0); Monocytes % 3.9 % (1.7-9.3); Neutrophils # 12.3 K/mm3 (1.8-7.8); Neutrophils % 87.6 % (37.0-80.0); Platelet Count 194 K/mm3 (142-424); Red Blood Count 3.15 M/mm3 (4.60-6.20); Red Cell Distribution Width 14.6 % (11.5-17.5)
[2024-10-26 09:19] LABS: Coronavirus 19, PCR Not Detected (NotDetected); Influenza A, PCR Not Detected (NotDetected); Influenza B, PCR Not Detected (NotDetected)
[2024-10-26 09:21] LABS: Albumin Level 3.5 g/dl (3.5-5.0); Chloride 106 mmol/L (98-107); Sodium 138 mmol/L (136-145)
[2024-10-26 09:22] LABS: Potassium 4.5 mmoL/L (3.5-5.1)
--- NOTE | 2024-10-26 09:22 | PC.NURSE ---
Lab at BS to get blood from pt.
[2024-10-26 09:24] LABS: Alanine Aminotransferase 8 U/L (12-78); Albumin/Globulin Ratio 1.5 (1.1-1.8); Alkaline Phosphatase 106 U/L (38-126); Anion Gap 7.5 mEq/L (5-15); Aspartate Amino Transferase 21 U/L (17-59); Bilirubin,Total 0.7 mg/dl (0.2-1.3); Blood Urea Nitrogen 34 mg/dl (9-20); Carbon Dioxide 29 mmol/L (22.0-30.0); Estimated Glomerular Filt Rate 54 ml/min (>60); GFR (African American) 65 ML/MIN (>60); Globulin 2.4 g/dL (1.3-3.2); Phosphorous 3.4 mg/dl (2.5-4.5); Total Protein,Serum 5.9 g/dl (6.3-8.2)
[2024-10-26 09:25] LABS: Calcium 8.5 mg/dl (8.4-10.2); Glucose 115 mg/dl (74-100); Lactic Acid 1.3 mmol/L (0.7-2.1); Lipase 49 U/L (23-300); Magnesium 1.5 mg/dl (1.6-2.3)
[2024-10-26 09:33] LABS: Lactate Venous 1.2 mmol/L (0.4-2.0); VBG Base Excess -2.1 mmol/L (-2.4-2.3); VBG HCO3 22.5 mmol/L (23-30); VBG Oxygen Saturation 39.7 % (50-70); VBG PCO2 36.1 mmol/L (35-51); VBG PH 7.41 mmol/L (7.31-7.41); VBG PO2 23.6 mmol/L (28-40); VBG Total CO2 23.6 mmol/L (23-27)
[2024-10-26 09:34] LABS: NT Pro Brain Natriuretic Pep. 1590 pg/mL (0-450)
[2024-10-26 09:41] LABS: T4 (Thyroxine) 9.6 ug/dl (5.53-11.0)
--- NOTE | 2024-10-26 09:44 | PC.NURSE ---
pt to CT
[2024-10-26 09:47] LABS: Troponin I < 0.01 ng/ml (0.00-0.034)
[2024-10-26] MEDS: 0.9 % SODIUM CHLORIDE 50 ML VIAL IV (09:54)
[2024-10-26] MEDS: IOPAMIDOL-370 (76%);100ML BOTTLE 80 ML IV (09:54)
[2024-10-26] MEDS: SODIUM CHLORIDE 0.9% 10ML SYR (RAD ONLY) 10 ML IV (09:54)
[2024-10-26 09:55] LABS: Thyroid Stimulating Hormone 3.88 uIU/mL (0.465-4.68)
--- NOTE | 2024-10-26 10:02 | PC.NURSE ---
pt returned back from CT via stretcher
[2024-10-26 10:05] LABS: Acetone, Serum (Rapid) None Detected (None Detect)
--- NOTE | 2024-10-26 10:05 | PC.NURSE ---
on assessment pt depend was soiled. pt cleaned up, new depend appled with new mepelex dressing and bed change at this time.
[2024-10-26 10:38] LABS: Microscopic, Urine URINE MICROSCOPIC (MICROSCOPIC)
[2024-10-26] MEDS: LACTATED RINGERS 1000ML 1,000 ML 999 ML IV (10:38)
[2024-10-26] MEDS: ONDANSETRON 4MG/2ML VIAL 4 MG IV (10:38)
[2024-10-26] MEDS: MAGNESIUM SULFATE IN WATER 2 GM/50 ML PIGGYBACK IV (10:38)
--- NOTE | 2024-10-26 10:38 | PC.NURSE ---
DR MOSES SPEAKING WITH RADIOLOGY
--- NOTE | 2024-10-26 10:43 | CA_ITS ---
APPROVED REPORT EXAM: Comprehensive 2D, Doppler, and color-flow Echocardiogram Guide Setter: Susan Aragon, RT(R) Ht: 5 ft 9 in Wt: 135lbs BSA: 1.75 BP: 150/71 mmHg Indications: Syncope, AMS, COPD, HTN, DM, HLD, Parkinson's disease, recent hospital stay with sepsis and metabolic encephalopathy, weakness, anorexia in recent days. Patient was unresponsive during exam, unable to move for exam. Rolled onto right side altering images due to patient positioning. 2D Dimensions EF AP4 58.20 % GL Strain -21.3 % M-Mode Dimensions RVDd 2.65 cm (0.9-2.6) LA Diam 4.68 cm (1.9-4.0) LVDd 6.09 cm (3.5-5.7) LVDs 5.37 cm (3.5-5.7) IVSd 0.97 cm (0.6-1.1) PWd 0.82 cm (0.6-1.1) EF (Teich) 25.10% FS 11.80% EDV (Teich) 186.20 mL TAPSE 2.53 (<1.7) ESV (Teich) 139.50 mL LV Diastology E Decel Time 140 (160-240 msec) E/A Ratio 0.62 Mitral Valve MV A Velocity 74.0 (40-130 cm/s) E/A Ratio 0.62 Left Ventricle The left ventricle is normal size. The left ventricular systolic function is normal. The left ventricular ejection fraction is within the normal range. There is increased LV wall thickness. There is normal LV segmental wall motion. Diastolic function is indeterminate. LVEF is 60%. Right Ventricle The right ventricle is normal size. The right ventricular systolic function is normal. Atria The left atrium size is normal. The right atrium size is normal. The interatrial septum is not well-visualized. Aortic Valve The aortic valve is mildly thickened. Trace aortic regurgitation. There is no aortic valvular stenosis. Mitral Valve The mitral valve is normal in structure. No evidence of mitral valve stenosis. Trace mitral regurgitation. Tricuspid Valve Tricuspid valve is grossly normal in structure and function. Trace tricuspid regurgitation. There is insufficient TR jet to estimate RVSP. Pulmonic Valve The pulmonary valve is normal in structure. Trace pulmonic regurgitation. Great Vessels The aortic root is normal in size. The IVC is not well-visualized. Pericardium There is no pericardial effusion. Other Information Study Quality: Technically Difficult Conclusion Technically difficult study due to poor acoustic windows. Normal biventricular systolic function. No significant valvular stenosis or regurgitation. Electronically signed by : Tequila Ballard MD 10/27/2024 11:17:12
[2024-10-26 10:45] LABS: Appearance,Urine CLEAR (Clear); Blood, Urine Negative (Negative); Color,Urine AMBER (Yellow); Glucose,Urine (UA) Negative (Negative); Ketones,Urine 1+ (Negative); Leukocyte Esterase,Urine Negative (Negative); Nitrate,Urine Negative (Negative); PH,Urine 5.5 (5.0-8.5); Protein,Urine TRACE (Negative); Urobilinogen,Urine 0.2 EU/dl (0.2)
--- NOTE | 2024-10-26 10:50 | HMH.PHAINT1 ---
Pharmacy Intervention Comments: MEDICATION RECONCILIATION COMPLETED ON PATIENT USING EXTERNAL FILL HISTORY FROM PHARMACY AND DISCHARGE SUMMARY FROM PREVIOUS ADMISSION. -KAYLEE SMITH, ZACHERYD
--- NOTE | 2024-10-26 10:54 | PC.NURSE ---
DR MOSES SPEAKING WITH HOSPITALIST
--- NOTE | 2024-10-26 10:58 | PC.NURSE ---
called house for pt admission
[2024-10-26 11:03] LABS: Bilirubin,Urine 2+ (Negative)
[2024-10-26 11:08] LABS: Bacteria,Urine 2+ /lpf; RBC,Urine Occasional #/hpf (0-3); Squamous Epithelial Cell,Urine Occasional #/hpf (0-5)
--- NOTE | 2024-10-26 11:37 | PC.NURSE ---
report called to MIKE Burgos
[2024-10-26] MEDS: ENOXAPARIN 100MG/ML SYRINGE 60 MG SUBCUT (11:40)
[2024-10-26 11:44] LABS: Troponin I < 0.01 ng/ml (0.00-0.034)
--- NOTE | 2024-10-26 13:21 | P.HP_ITS ---
History of Present Illness *Admission Date: 10/26/24 *Reason for visit:: Failure to thrive *History of present illness: Hung Maravilla is a 74-year-old [place] with past medical history of Parkinson's disease, hypertension, diabetes, CKD, CVD, anemia, gout, hyperlipidemia, diastolic heart failure who presents due to failure to thrive, falls at home. Patient recently left [facility] because he and the family did not like it, went home. Has had falls, decreased appetite, and failure to thrive. WBC 14.9, with evidence of stercoral colitis on CT. Case discussed ED provider and decision was made to admit patient for prior to thrive. [facility] Disclaimer: The information contained in this section may have been updated after the patient was seen, as this information can be updated by other users. Medical History Anemia of acute infection B12 deficiency Urinary hesitancy KYLAH (acute kidney injury) Chronic neck pain Therapeutic misadventure Syncope and collapse Acute on chronic renal failure Thoracic back pain Enlarged prostate Mass of kidney Abnormal transaminases Chest pain Parkinson's disease with dyskinesia, with fluctuations Chronic pain Facial lesion 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 GFR 30-59 CVD (cardiovascular disease) Binocular vision loss Constipation Neuropathy Acute hip pain Hip pain, right REM behavioral disorder Chronic renal failure Thyroid nodule COVID-19 Renal malignant neoplasm HLD (hyperlipidemia) Renal cell carcinoma of left kidney Gout Renal insufficiency Anemia Diabetes Thyroid nodule Enlarged thyroid Deviated septum Thyroid mass Healthcare maintenance Acute ischemic stroke History of TIA (transient ischemic attack) DM type 2 (diabetes mellitus, type 2) COPD (chronic obstructive pulmonary disease) GERD (gastroesophageal reflux disease) Single kidney Heart failure TIA (transient ischemic attack) Daytime somnolence Parkinson disease Surgical History Status post gastrointestinal surgery History of cholecystectomy Hx of appendectomy H/O left nephrectomy Family History Other No significant family history Social History (Updated 10/26/24 @ 11:51 by Alejandra Montes RN) Smoking Status: Former smoker tobacco type: cigarettes second hand exposure: Yes alcohol intake: current alcohol intake frequency: a few times a month substance use type: denies use current occupational status: retired Travel in the last 8 weeks: None household members: spouse housing: house marital status: current occupational exposures/hazards: No caffeine: No Other Medical History Have you received the Flu Vaccine for this season: No Have you received the Pneumonia Vaccine: No Meds Home Medications and Allergies Home Medications ?Medication ?Instructions ?Recorded ?Confirmed ?Type docusate sodium 50 mg capsule 100 mg PO DAILY 12/18/23 10/26/24 History simvastatin 20 mg tablet 20 mg PO HS 90 days #90 tabs 12/25/23 10/26/24 Rx pantoprazole 40 mg tablet,delayed 40 mg PO BID 06/18/24 10/26/24 History release carbidopa ER 50 mg-levodopa 200 mg 1 tab PO QID #120 tabs 06/24/24 10/26/24 Rx tablet,extended release aspirin 81 mg tablet,delayed 81 mg PO DAILY 07/08/24 10/26/24 History release (Adult Low Dose Aspirin) mecobalamin (vitamin B12) 1,000 1,000 mcg PO DAILY 07/08/24 10/26/24 History mcg lozenges allopurinol 100 mg tablet 100 mg PO DAILY 08/24/24 10/26/24 History entacapone 200 mg tablet 200 mg PO QID 08/24/24 10/26/24 History folic acid 1 mg tablet 1 mg PO DAILY 08/24/24 10/26/24 History furosemide 20 mg tablet 20 mg PO DAILYP PRN edema 08/24/24 10/26/24 History gabapentin 600 mg tablet 300 mg (1/2 x 600 mg) PO TID 30 08/31/24 10/26/24 Rx days #45 tabs hydrocodone 10 mg-acetaminophen 1 tab PO Q6HP PRN Moderate Pain 10/20/24 10/26/24 Rx 325 mg tablet (Scale Score 5-6) 30 days #120 tabs New Prescriptions to Start Prescriptions: Allergies Allergy/AdvReac Type Severity Reaction Status Date / Time mupirocin Allergy Rash Verified 08/24/24 12:12 Exam Data for Last 24 hours Vital signs and Labs for Last 24 Hours: Temp Pulse Resp BP Pulse Ox O2 Del Method O2 Flow Rate 98 F 74 22 104/63 L 100 Nasal Cannula 4 10/26/24 12:35 10/26/24 12:35 10/26/24 12:35 10/26/24 12:35 10/26/24 12:35 10/26/24 12:35 10/26/24 12:35 Laboratory Results - last 24 hr 10/26/24 08:55: WBC 14.0 H, RBC 3.15 L, Hgb 9.0 L, Hct 28.2 L, MCV 89.5, MCH 28.6, MCHC 31.9, RDW 14.6, Plt Count 194, MPV 11.2 H, Neut % (Auto) 87.6 H, Lymph % (Auto) 7.0 L, [place] % (Auto) 3.9, Eos % (Auto) 0.2, Baso % (Auto) 0.2, Neut # (Auto) 12.3 H, Lymph # (Auto) 1.0, [place] # (Auto) 0.5, Eos # (Auto) 0.0, Baso # (Auto) 0.0, Sodium 138, Potassium 4.5, Chloride 106, Carbon Dioxide 29, Anion Gap 7.5, BUN 34 H, Creatinine 1.30 H, Estimated GFR 54 L, Est GFR ( Amer) 65, Glucose 115 H, Lactate 1.3, Calcium 8.5, Phosphorus 3.4, Magnesium 1.5 L, Total Bilirubin 0.7, AST 21, ALT 8 L, Alkaline Phosphatase 106, Troponin I < 0.01, NT-Pro-B Natriuret Pep 1590 H, Total Protein 5.9 L, Albumin 3.5, Globulin 2.4, Albumin/Globulin Ratio 1.5, Lipase 49, TSH 3.88, Thyroxine (T4) 9.6, Acetone Level None detected 10/26/24 09:14: SARS-CoV-2 (PCR) Not detected, Influenza A Untype (PCR) Not detected, Influenza Type B (PCR) Not detected 10/26/24 09:25: VBG pH 7.41, VBG pCO2 36.1, VBG pO2 23.6 L, VBG HCO3 22.5 L, VBG Total CO2 23.6, VBG O2 Saturation 39.7 L, VBG Base Excess -2.1, VBG Lactic Acid 1.2 10/26/24 10:32: Urine Color [place], Urine Appearance Clear, Urine pH 5.5, Ur Specific [place] 1.020, Urine Protein Trace, Urine Glucose (UA) Negative, Urine Ketones 1+, Urine Blood Negative, Urine Nitrate Negative, Urine Bilirubin 2+ A, Urine Urobilinogen 0.2, Ur Leukocyte Esterase Negative, Urine RBC Occasional, Urine WBC None, Ur Squamous Epith Cells Occasional, Urine Bacteria 2+ 10/26/24 11:13: Troponin I < 0.01 I & O for Last 24 hours: Intake & Output 10/23/24 10/24/24 10/25/24 10/26/24 23:59 23:59 23:59 23:59 Weight 63.957 kg Constitutional Constitutional: no acute distress *Routine HEENT Exam Head: Present normocephalic Eye: Present EOMI and PERRL ENT: Present mucous membranes moist *Routine Neck Exam Neck: Present supple; Absent lymphadenopathy *Routine Respiratory Exam Respiratory: Present CTA bilaterally *Routine Cardiovascular Exam Cardiovascular: Present RRR *Routine Abdominal Exam Abdominal: Present soft and normoactive bowel sounds; Absent tenderness *Routine Rectal Exam Rectal:: deferred *Routine Genitalia Exam Genitalia:: deferred *Routine Extremities Exam Extremities: Absent cyanosis, clubbing or edema *Routine Skin Exam Skin: Present warm; Absent rash *Routine Neurological Exam Neurological: Present alert Assessment and Plan *Assessment and plan (1) Adult failure to thrive: Status: Acute Category: Medical Code(s): R62.7 - Adult failure to thrive (2) Stercoral colitis: Status: Acute Category: Medical Code(s): K52.89 - Other specified noninfective gastroenteritis and colitis (3) Bilateral pulmonary embolism: Status: Acute Category: Medical Code(s): I26.99 - Other pulmonary embolism without acute cor pulmonale (4) Sacral wound: Status: Acute Category: Medical Code(s): S31.000A - Unspecified open wound of lower back and pelvis without penetration into retroperitoneum, initial encounter Plan Hung Maravilla is a 74-year-old [place] with past medical history of Parkinson's disease, hypertension, diabetes, CKD, CVD, anemia, gout, hyperlipidemia, diastolic heart failure who presents due to failure to thrive, falls at home. Patient recently left [facility] because he and the family did not like it, went home. Has had falls, decreased appetite, and fail ure to thrive. WBC 14.9, with evidence of stercoral colitis on CT. also found to have bilateral PEs on CTA. Case discussed ED provider and decision was made to admit patient for prior to thrive. GI was consulted by ED for stercoral colitis. #Failure to thrive #Cognitive, functional decline #Stercoral colitis, fecal impaction #Bilateral pulmonary emboli #Falls at home #Sacral wound #Parkinson's dementia/disease ? Unfortunately due to patient's advancing Parkinson's disease, patient has had cognitive and functional disincline for quite some time. Has been in and out of nursing facilities. Given progressive cognitive, functional decline and multiple comorbidities, patient will benefit from goals of care conversation among family. unable to be reached at this time. Patient has no decision- making capacity due to Parkinson's dementia. ? Continue therapeutic Lovenox for bilateral PE. On 3 L, baseline. ? Alternate mineral oil, soapsuds enemas. Start oral laxatives once patient begins having bowel movements. ? Started Zosyn for stercoral colitis. ? PT/OT consulted, recommend SNF. Case management assisting. ? Follow-up ECHO to evaluate for RV strain. ? Wound care consulted for sacral wound. Parkinson's disease: Carbidopa/levodopa 4 times a day, caution with delirium medications due to risk for extraparametal symptoms and NMS. CKD: Minimize use of nephrotoxic drugs Diastolic heart failure: Continue Lasix as needed. CVD: Continue aspirin, statin. Gout: Allopurinol 100 mg p.o. daily Hyperlipidemia: Simvastatin 20 mg p.o. daily DNR/DNI Therapeutic Lovenox
--- NOTE | 2024-10-26 14:43 | HMH.OTEV ---
OT Inpatient Evaluation Rehab OT IP Evaluation Start: 10/26/24 11:22 Freq: ONCE Status: Active Protocol: Document 10/26/24 14:34 [facility] (Rec: 10/26/24 14:43 [facility] [id number]) Rehab OT IP Assessment Subjective History Pt oriented x 2 on arrival. Pt agreeable to engage in therapy evaluation. Pt admitted on 10/26/24 due to syncope, PE, fecal impaction. History and physical: This patient is a 74-year-old male with a history of Parkinson's disease, hypertension, diabetes, CKD, CVD, anemia, gout, hyperlipidemia, diastolic heart failure presenting to the emergency department for evaluation with concern for generally feeling unwell. According to EMS, they were called to the patient's home by family member who brought patient home from nursing facility 6 days ago. Since coming home, the patient had reportedly been doing well, but has not wanted to eat or drink the last day or so and then had a syncopal episode today. They also noted concerns for sacral wounds, which family is not treating at home. They report that the patient was brought home from the nurse facility because they were not happy with the care that was received there. EMS notes that en route, he was complaining of pain all over, especially in his abdomen, and he also noted that he had a cough and hypoxia for which he was put on 2 L nasal cannula. I reviewed medical records and noted that the patient was discharged there 08/31/2024 after hospital stay for metabolic encephalopathy, sepsis, cholangitis, choledocholithiasis. He underwent ERCP at that time and it was recommended that he have a follow-up ERCP in 3 months with removal of biliary stent. Currently, patient is alert and oriented x 4 but states he does not know how long is been feeling bad. He states that he feels awful and is hurting all over, especially his belly. Pain is not localizable in his abdomen. He does not provide further history, as he is very ill-appearing. Subjective Pt resting in bed on arrival. Pt reports he feels very weak . Pt claims normally he is independent with completing ADLs such as dressing, bathing , and feeding. He is also independent with functional transfers using rolling walker . Pt does live with his and has 2 stairs in the home he must go up and down at times. Family/hired employees assist with IADLS such as cleaning and cooking. Pt's no longer drives. Objective Patient Orientation Person,Birthday Right Upper Extremity Gross ROM Min Limitation <25% Left Upper Extremity Gross ROM Min Limitation <25% Shoulder ROM Limitations Muscle Weakness Elbow ROM Limitations Muscle Weakness Wrist Limitations of Range of Motion Muscle Weakness Bed Mobility bed mobility-scooting,bed mobility - supine/sit,bed mobility - rolling Assist Level Maximum x 2 (75% assist) Transfer Training Sit/Stand Transfer Assist Level Maximum x 2 (75% assist) Lower Body Dressing Ability Maximum Assistance Performing Toilet Hygiene Ability Maximum Assistance Rehab OT IP prob,goals,plan Problems Date of Evaluation: 10/26/24 OT IP Problems Bed Mobility,Transfers,Balance ,Self care,Safety Rehab Potential Rehab Potential Good Equipment Needs Assistive Devices Rolling / Wheeled Walker Plan OT intervention Plan Bed Mobility,Transfers,Balance ,Self care,Safety,Therapeutic Exercise OT Plan Frequency Daily Duration LOS Discharge Goals Bed Mobility Ability Assistance x1 Chair Transfer Ability Maximum x 1 (75% assist) Chair Transfer Technique Sit to/from Ambulatory Chair Transfer Assistive Devices Rolling Walker Lower Body Dressing Ability Moderate Assistance Upper Body Dressing Ability Moderate Assistance Bathing Ability Moderate Assistance Performing Toilet Hygiene Ability Moderate Assistance Overall Commode/Toilet Transfer Ability Moderate Assistance Commode/Toilet Transfer Technique Sit to/from Ambulatory Commode/Toilet Transfer Assistive Grab Bars Devices Oral Care Assist Minimal Assistance Decrease in Endurance Yes Discharge Plan OT Discharge Plan Pt will continue to be seen for OT services while at [facility]. At this time, pt presents below baseline with functional transfers and ADL independence. Pt would benefit most from short term rehab at [facility] following hospital stay. Continued skilled therapy is important in order for patient to improve strength, safety, endurance, ADL independence, and functional transfers to reach OF. Eval Complexity Eval Charge Codes 56159 - Moderate Complexity PHYSICIAN CERTIFICATION: I certify the specified therapy services for Hung Maravilla are required, authorized, and reviewed every 30 days.
[2024-10-26 14:50] LABS: Troponin I < 0.01 ng/ml (0.00-0.034)
--- NOTE | 2024-10-26 15:12 | EXP.GE.CONS ---
History of Present Illness *History of present illness: This patient is a 74-year-old male with a history of Parkinson's disease, hypertension, diabetes, CKD, CVD, anemia, gout, hyperlipidemia, diastolic heart failure presenting to the emergency department for evaluation with concern for generally feeling unwell. According to EMS, they were called to the patient's home by family member who brought patient home from nursing facility 6 days ago. Since coming home, the patient had reportedly been doing well, but has not wanted to eat or drink the last day or so and then had a syncopal episode today. They also noted concerns for sacral wounds, which family is not treating at home. They report that the patient was brought home from the nurse facility because they were not happy with the care that was received there. EMS notes that en route, he was complaining of pain all over, especially in his abdomen, and he also noted that he had a cough and hypoxia for which he was put on 2 L nasal cannula. I reviewed medical records and noted that the patient was discharged there 08/31/2024 after hospital stay for metabolic encephalopathy, sepsis, cholangitis, choledocholithiasis. He underwent ERCP at that time and it was recommended that he have a follow-up ERCP in 3 months with removal of biliary stent. Currently, patient is alert and oriented x 4 but states he does not know how long is been feeling bad. He states that he feels awful and is hurting all over, especially his belly. Pain is not localizable in his abdomen. He does not provide further history, as he is very ill-appearing. Per admission to ER This is a 74-year-old male patient who was seen in August for cholangitis and choledocholithiasis with metabolic encephalopathy and sepsis. He underwent ERCP 08/24/[address] Sanchez which showed Choledocholithiasis with early cholangitis status post biliary clearance and SEMS 10 mm biliary stent placement. Liver enzymes were significantly improved prior to discharge. He will be due for repeat ERCP and removal of stent at 3 months (approximately 1 month from now). He returned to the ER after removal from outside nursing facility for syncopal episode at home. Patient reports abdominal discomfort and CT abdomen pelvis showed common bile duct stent with pneumobilia. Large amount of stool in the colon with wall thickening of the sigmoid colon and rectum and pericolonic inflammatory change consistent with stercoral colitis. GI was consulted for this reason. LFTs are within normal limits. Per nursing staff, patient has had multiple very large mushy bowel movements since admission. He is distiller to palpation throughout his abdomen. He is on hydrocodone pain medication at home and stool softener. Patient is unable to tell me anything about his recent bowel habits or current symptoms. No family is currently available. He is tender to palpation throughout abdomen on exam. He is A and O x 2. [facility] Disclaimer: The information contained in this section may have been updated after the patient was seen, as this information can be updated by other users. Medical History Anemia of acute infection B12 deficiency Urinary hesitancy KYLAH (acute kidney injury) Chronic neck pain Therapeutic misadventure Syncope and collapse Acute on chronic renal failure Thoracic back pain Enlarged prostate Mass of kidney Abnormal transaminases Chest pain Parkinson's disease with dyskinesia, with fluctuations Chronic pain Facial lesion 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 GFR 30-59 CVD (cardiovascular disease) Binocular vision loss Constipation Neuropathy Acute hip pain Hip pain, right REM behavioral disorder Chronic renal failure Thyroid nodule COVID-19 Renal malignant neoplasm HLD (hyperlipidemia) Renal cell carcinoma of left kidney Gout Renal insufficiency Anemia Diabetes Thyroid nodule Enlarged thyroid Deviated septum Thyroid mass Healthcare maintenance Acute ischemic stroke History of TIA (transient ischemic attack) DM type 2 (diabetes mellitus, type 2) COPD (chronic obstructive pulmonary disease) GERD (gastroesophageal reflux disease) Single kidney Heart failure TIA (transient ischemic attack) Daytime somnolence Parkinson disease Surgical History Status post gastrointestinal surgery History of cholecystectomy Hx of appendectomy H/O left nephrectomy Family History Other No significant family history Social History (Updated 10/26/24 @ 11:51 by Alejandra Montes RN) Smoking Status: Former smoker tobacco type: cigarettes second hand exposure: Yes alcohol intake: current alcohol intake frequency: a few times a month substance use type: denies use current occupational status: retired Travel in the last 8 weeks: None household members: spouse housing: house marital status: current occupational exposures/hazards: No caffeine: No Have you lived/traveled outside [place] in past 30 days?: No Contact w/someone who lives/traveled outside [place] past 30 days?: No Exposure to someone with infectious disease in past 14 days?: No Do you have a fever (greater than 100.4 F or 38 C)?: No Have you tested positive for COVID-19: No Exposed to someone with COVID-19 in past 14 days?: No Do you have a sore throat?: No Do you have a cough?: No Do you have any weakness?: No Are you experiencing any nausea/vomitting?: No Do you have any diarrhea?: No Are you experiencing any unusual bleeding?: No Do you have any muscle aches/pain?: No Do you have any abdominal pain?: No Are you experiencing loss of taste or smell?: No Review of Systems Review of Systems Review of systems:: unable to obtain (Patient ANO x 2 can give me minimal information) Review of systems (narrative): Most information taken from report in the ER Constitutional Constitutional: Reports system reviewed and no additional complaints, except as documented and Reports poor appetite Eyes Eyes: Reports system reviewed and no additional complaints, except as documented ENT Ears, Nose, Mouth, and Throat: Reports system reviewed and no additional complaints, except as documented *Cardiovascular Cardiovascular: Reports system reviewed and no additional complaints, except as documented *Respiratory Respiratory: Reports system reviewed and no additional complaints, except as documented *Gastrointestinal Gastrointestinal: Reports abdominal pain Comments: Patient unable to comment on bowel habits but does complain about abdominal pain. *Genitourinary Genitourinary: Reports system reviewed and no additional complaints, except as documented *Musculoskeletal Musculoskeletal: Reports system reviewed and no additional complaints, except as documented *Neurologic Neurologic: Reports system reviewed and no additional complaints, except as documented Meds Home Medications and Allergies Home Medications ?Medication ?Instructions ?Recorded ?Confirmed ?Type docusate sodium 50 mg capsule 100 mg PO DAILY 12/18/23 10/26/24 History simvastatin 20 mg tablet 20 mg PO HS 90 days #90 tabs 12/25/23 10/26/24 Rx pantoprazole 40 mg tablet,delayed 40 mg PO BID 06/18/24 10/26/24 History release carbidopa ER 50 mg-levodopa 200 mg 1 tab PO QID #120 tabs 06/24/24 10/26/24 Rx tablet,extended release aspirin 81 mg tablet,delayed 81 mg PO DAILY 07/08/24 10/26/24 History release (Adult Low Dose Aspirin) mecobalamin (vitamin B12) 1,000 1,000 mcg PO DAILY 07/08/24 10/26/24 History mcg lozenges allopurinol 100 mg tablet 100 mg PO DAILY 08/24/24 10/26/24 History entacapone 200 mg tablet 200 mg PO QID 08/24/24 10/26/24 History folic acid 1 mg tablet 1 mg PO DAILY 08/24/24 10/26/24 History furosemide 20 mg tablet 20 mg PO DAILYP PRN edema 08/24/24 10/26/24 History gabapentin 600 mg tablet 300 mg (1/2 x 600 mg) PO TID 30 08/31/24 10/26/24 Rx days #45 tabs hydrocodone 10 mg-acetaminophen 1 tab PO Q6HP PRN Moderate Pain 10/20/24 10/26/24 Rx 325 mg tablet (Scale Score 5-6) 30 days #120 tabs New Prescriptions to Start Prescriptions: Allergies Allergy/AdvReac Type Severity Reaction Status Date / Time mupirocin Allergy Rash Verified 08/24/24 12:12 Exam (Inpt) Vital signs and Labs for Last 24 Hours: Temp Pulse Resp BP Pulse Ox O2 Del Method O2 Flow Rate 98 F 74 22 104/63 L 100 Nasal Cannula 4 10/26/24 12:35 10/26/24 12:35 10/26/24 12:35 10/26/24 12:35 10/26/24 12:35 10/26/24 12:35 10/26/24 12:35 Laboratory Results - last 24 hr 10/26/24 08:55: WBC 14.0 H, RBC 3.15 L, Hgb 9.0 L, Hct 28.2 L, MCV 89.5, MCH 28.6, MCHC 31.9, RDW 14.6, Plt Count 194, MPV 11.2 H, Neut % (Auto) 87.6 H, Lymph % (Auto) 7.0 L, [place] % (Auto) 3.9, Eos % (Auto) 0.2, Baso % (Auto) 0.2, Neut # (Auto) 12.3 H, Lymph # (Auto) 1.0, [place] # (Auto) 0.5, Eos # (Auto) 0.0, Baso # (Auto) 0.0, Sodium 138, Potassium 4.5, Chloride 106, Carbon Dioxide 29, Anion Gap 7.5, BUN 34 H, Creatinine 1.30 H, Estimated GFR 54 L, Est GFR ( Amer) 65, Glucose 115 H, Lactate 1.3, Calcium 8.5, Phosphorus 3.4, Magnesium 1.5 L, Total Bilirubin 0.7, AST 21, ALT 8 L, Alkaline Phosphatase 106, Troponin I < 0.01, NT-Pro-B Natriuret Pep 1590 H, Total Protein 5.9 L, Albumin 3.5, Globulin 2.4, Albumin/Globulin Ratio 1.5, Lipase 49, TSH 3.88, Thyroxine (T4) 9.6, Acetone Level None detected 10/26/24 09:14: SARS-CoV-2 (PCR) Not detected, Influenza A Untype (PCR) Not detected, Influenza Type B (PCR) Not detected 10/26/24 09:25: VBG pH 7.41, VBG pCO2 36.1, VBG pO2 23.6 L, VBG HCO3 22.5 L, VBG Total CO2 23.6, VBG O2 Saturation 39.7 L, VBG Base Excess -2.1, VBG Lactic Acid 1.2 10/26/24 10:32: Urine Color Vale, Urine Appearance Clear, Urine pH 5.5, Ur Specific [place] 1.020, Urine Protein Trace, Urine Glucose (UA) Negative, Urine Ketones 1+, Urine Blood Negative, Urine Nitrate Negative, Urine Bilirubin 2+ A, Urine Urobilinogen 0.2, Ur Leukocyte Esterase Negative, Urine RBC Occasional, Urine WBC None, Ur Squamous Epith Cells Occasional, Urine Bacteria 2+ 10/26/24 11:13: Troponin I < 0.01 10/26/24 14:15: Troponin I < 0.01 I & O for Labs for Last 24 Hours: Intake & Output 10/24/24 10/25/24 10/26/24 10/27/24 11:59 11:59 11:59 11:59 Output Total 0 Balance 0 Weight 61.235 kg 63.957 kg Constitutional: no acute distress and chronically ill appearing Head: Present normocephalic and atraumatic Neck: Present normal inspection Respiratory: Present rhonchi (Mild bilateral) and symmetric chest movement Cardiac: Present Reg Rate and Rhythm GI: Present soft, tenderness (Tenderness to palpation throughout abdomen) and hyperactive bowel sounds Extremities: Absent edema Results Labs 10/26/24 08:55 10/26/24 08:55 Labs: Laboratory Results - last 24 hr 10/26/24 08:55: WBC 14.0 H, RBC 3.15 L, Hgb 9.0 L, Hct 28.2 L, MCV 89.5, MCH 28.6, MCHC 31.9, RDW 14.6, Plt Count 194, MPV 11.2 H, Neut % (Auto) 87.6 H, Lymph % (Auto) 7.0 L, [place] % (Auto) 3.9, Eos % (Auto) 0.2, Baso % (Auto) 0.2, Neut # (Auto) 12.3 H, Lymph # (Auto) 1.0, [place] # (Auto) 0.5, Eos # (Auto) 0.0, Baso # (Auto) 0.0, Sodium 138, Potassium 4.5, Chloride 106, Carbon Dioxide 29, Anion Gap 7.5, BUN 34 H, Creatinine 1.30 H, Estimated GFR 54 L, Est GFR ( Amer) 65, Glucose 115 H, Lactate 1.3, Calcium 8.5, Phosphorus 3.4, Magnesium 1.5 L, Total Bilirubin 0.7, AST 21, ALT 8 L, Alkaline Phosphatase 106, Troponin I < 0.01, NT-Pro-B Natriuret Pep 1590 H, Total Protein 5.9 L, Albumin 3.5, Globulin 2.4, Albumin/Globulin Ratio 1.5, Lipase 49, TSH 3.88, Thyroxine (T4) 9.6, Acetone Level None detected 10/26/24 09:14: SARS-CoV-2 (PCR) Not detected, Influenza A Untype (PCR) Not detected, Influenza Type B (PCR) Not detected 10/26/24 09:25: VBG pH 7.41, VBG pCO2 36.1, VBG pO2 23.6 L, VBG HCO3 22.5 L, VBG Total CO2 23.6, VBG O2 Saturation 39.7 L, VBG Base Excess -2.1, VBG Lactic Acid 1.2 10/26/24 10:32: Urine Color Vale, Urine Appearance Clear, Urine pH 5.5, Ur Specific [place] 1.020, Urine Protein Trace, Urine Glucose (UA) Negative, Urine Ketones 1+, Urine Blood Negative, Urine Nitrate Negative, Urine Bilirubin 2+ A, Urine Urobilinogen 0.2, Ur Leukocyte Esterase Negative, Urine RBC Occasional, Urine WBC None, Ur Squamous Epith Cells Occasional, Urine Bacteria 2+ 10/26/24 11:13: Troponin I < 0.01 10/26/24 14:15: Troponin I < 0.01 Assessment and Plan *Assessment and plan (1) Stercoral colitis: Status: Acute Category: Medical Code(s): K52.89 - Other specified noninfective gastroenteritis and colitis (2) Generalized abdominal pain: Status: Acute Category: Medical Code(s): R10.84 - Generalized abdominal pain Plan 1. Stercoral colitis/abdominal pain Significant generalized abdominal pain with large amount of stool throughout the colon and resulting inflammatory response. Patient has been on hydrocodone for pain relief and docusate sodium as he only documented at home treatment. Unable to elicit how often he is using the pain medication versus this stool softener. Unsure when he is had his last bowel movement. Abdominal pain seems unrelated to recent issue with choledocholithiasis status post stent placement. Liver enzymes are within normal limits. Will be due for repeat ERCP with stent removal next month. Patient also has a history of Parkinson's disease on carbidopa/levodopa and poor bowel function can be an effect of autonomic nervous system dysfunction as well. We recommend mineral oil enemas and lactulose to treat underlying constipation. Per nursing patient has already had 2 large mushy bowel movements. Okay to hold enema if patient is actively producing stool. I would utilize lactulose while inpatient as long as he is on pain medication. If he goes home with p.o. pain medication, may need more aggressive bowel regimen.
--- NOTE | 2024-10-26 15:32 | HMH.PTEV ---
Physical Therapy Evaluation Rehab PT IP Evaluation Start: 10/26/24 11:22 Freq: ONCE Status: Active Protocol: Document 10/26/24 13:00 KATHARINA (Rec: 10/26/24 15:32 PHOREBECCA [id number]) Subjective/History History History Pt oriented x 2 on arrival. Pt agreeable to engage in therapy evaluation. Pt admitted on 10/26/24 due to syncope, PE, fecal impaction. History and physical: This patient is a 74-year-old male with a history of Parkinson's disease, hypertension, diabetes, CKD, CVD, anemia, gout, hyperlipidemia, diastolic heart failure presenting to the emergency department for evaluation with concern for generally feeling unwell. According to EMS, they were called to the patient's home by family member who brought patient home from nursing facility 6 days ago. Since coming home, the patient had reportedly been doing well, but has not wanted to eat or drink the last day or so and then had a syncopal episode today. They also noted concerns for sacral wounds, which family is not treating at home. They report that the patient was brought home from the nurse facility because they were not happy with the care that was received there. EMS notes that en route, he was complaining of pain all over, especially in his abdomen, and he also noted that he had a cough and hypoxia for which he was put on 2 L nasal cannula. I reviewed medical records and noted that the patient was discharged there 08/31/2024 after hospital stay for metabolic encephalopathy, sepsis, cholangitis, choledocholithiasis. He underwent ERCP at that time and it was recommended that he have a follow-up ERCP in 3 months with removal of biliary stent. Currently, patient is alert and oriented x 4 but states he does not know how long is been feeling bad. He states that he feels awful and is hurting all over, especially his belly. Pain is not localizable in his abdomen. He does not provide further history, as he is very ill-appearing. Subjective Subjective Pt reports he lives with his , 2 HARSHIL the home, and is generally independent with all mobility using a RW. Rehab PT IP Eval Objective Appearance Patient Behavior Appropriate Patient Orientation Person,Place Difficulty following instructions none Speech Pattern Clear Ambulation Patient Able to Ambulate No Balance Ability to Arise Able, uses arms to help Sitting Balance Leans or slides in chair Standing Balance Unsteady Dynamic Sitting Balance Ability Fair Dynamic Standing Balance Ability Poor Transfers Bed Transfer Ability Moderate x 2 (50% assist) Sit to Stand Bed Transfer Ability Maximum x 2 (75% assist) Rehab PT IP prob,goals,plan Problems Date of Evaluation: 10/26/24 PT IP Problems Bed Mobility,Transfers,Gait Rehab Potential Rehab Potential Good Plan PT Intervention Plan Bed Mobility,Transfers,Gait, Therapeutic Exercise PT Plan Frequency Daily Duration LOS Discharge Goals Bed Transfer Ability Minimal x 2 (25% assist) Sit to Stand Chair Transfer Ability Moderate x 1 (50% assist) Ambulation Assistive Device Rolling Walker Ambulation Distance (feet) 5 Discharge Plan PT Discharge Plan Pt is currently most appropriate for rehab placement once medically stable for d/c. Skilled therapy is indicated to improve transfers, increase strength in all extremities, improve ambulation ability in order to aid pt return at or near to his PLOF. Eval Complexity Eval Charge Codes 63864 - High Complexity PHYSICIAN CERTIFICATION: I certify the specified therapy services for Hung Maravilla are required, authorized, and reviewed every 30 days.
--- NOTE | 2024-10-26 17:10 | PC.WOUNDNOTE ---
stage 1 to coccyx. Bruising and erythema noted to bottom. Excoriated scrotum
--- NOTE | 2024-10-26 18:53 | PC.NURSE ---
patient has had 2 large BM this shift via brief. Consistency was mushy and dark brown with foul smell.
[2024-10-26] MEDS: ACETAMINOPHEN 325MG TAB 650 MG PO (18:57)
[2024-10-26] MEDS: ENOXAPARIN 80MG/0.8ML SYRINGE 65 MG SUBCUT (21:03)
[2024-10-27 00:20] VITALS: BP 179/74; PULSE 68; RESP 22; TEMP 37.1; O2SAT 95
[2024-10-27] MEDS: PIPERCILLIN/TAZO 3.375 GM in 0.9 % SODIUM CHLORIDE 50 ML IV ×3 (02:11→17:03)
[2024-10-27 04:00] VITALS: BP 112/52; PULSE 62; RESP 20; TEMP 36.4; O2SAT 96; BMI 21.4
--- NOTE | 2024-10-27 06:10 | PC.NURSE ---
At the start of the shift Pt. was orientated to name and birthday. Pt. was pleasent and very tired. P. sleeping with cares. Around 2200, pt. found in bed, diaper brief off, pt. had stooled, Pt. had stool all over self , beds and hands. Pt. cleaned up and bed changed. Pt. IV was also out of his arm and found on the floor. New IV established, wrapped in coban. Pt. picking at things. Pt. resting again until around 0200. As I was going to sort operations supervisor his antibiotic he awoke and became extremely combative , hitting and trying to punch staff.Pt. ripped off oxygen and had it wound in his hand until he dropped it. IV antibiotic was hanging on the IV pole, Pt. got a hold of the tubing and ripped it out of the IV bag spilling contents on the floor. Kelly PRITCHETT contacted and Pt. got Zyprexa IM. Pt. calmed and whent back to sleep. Pt. has cough and chokes when he drinks. VSS Personal items and call ram in reach. Pt. unable to use call ram. frequent rounding done on patient.
[2024-10-27 06:27] LABS: Basophils % 0.2 % (0.1-2.0); Eosinophils % 0.4 % (0.1-12.0); Hematocrit 24.3 % (42.0-52.0); Lymphocytes # 1.2 K/mm3 (0.7-4.5); Lymphocytes % 12.9 % (10-50); Mean Corpuscular HGB Conc 32.1 g/dL (31.8-35.4); Mean Corpuscular Hemoglobin 28.5 pg (27.0-31.2); Mean Corpuscular Volume 88.7 fl (80-94); Mean Platelet Volume 11.2 fl (7.4-10.4); Monocytes # 0.4 K/mm3 (0.1-1.0); Monocytes % 4.5 % (1.7-9.3); Neutrophils # 7.3 K/mm3 (1.8-7.8); Neutrophils % 80.6 % (37.0-80.0); Platelet Count 170 K/mm3 (142-424); Red Blood Count 2.74 M/mm3 (4.60-6.20); Red Cell Distribution Width 14.6 % (11.5-17.5)
[2024-10-27 06:28] LABS: Albumin Level 3.1 g/dl (3.5-5.0); Chloride 109 mmol/L (98-107); Sodium 138 mmol/L (136-145)
[2024-10-27 06:31] LABS: Alanine Aminotransferase 8 U/L (12-78); Albumin/Globulin Ratio 1.4 (1.1-1.8); Alkaline Phosphatase 98 U/L (38-126); Aspartate Amino Transferase 18 U/L (17-59); Bilirubin,Total 0.7 mg/dl (0.2-1.3); Blood Urea Nitrogen 32 mg/dl (9-20); Carbon Dioxide 30 mmol/L (22.0-30.0); Creatinine Clearance Estimated 49 mL/min (50-200); Estimated Glomerular Filt Rate 59 ml/min (>60); GFR (African American) 71 ML/MIN (>60); Globulin 2.2 g/dL (1.3-3.2); Total Protein,Serum 5.3 g/dl (6.3-8.2)
[2024-10-27 06:32] LABS: Calcium 8.1 mg/dl (8.4-10.2); Glucose 96 mg/dl (74-100); Magnesium 2.2 mg/dl (1.6-2.3)
[2024-10-27 06:45] LABS: Hemoglobin 8.3 g/dL (14.1-18.0)
[2024-10-27 08:00] VITALS: BP 126/57; PULSE 74; RESP 18; TEMP 36.4; O2SAT 94
[2024-10-27] MEDS: DOCUSATE SODIUM 100 MG CAPSULE PO (08:30)
[2024-10-27] MEDS: GABAPENTIN 300MG CAPSULE 300 MG PO ×3 (08:30→22:13)
[2024-10-27] MEDS: ASPIRIN EC 81MG TABLET 81 MG PO (08:30)
[2024-10-27] MEDS: ENOXAPARIN 80MG/0.8ML SYRINGE 65 MG SUBCUT (08:30)
[2024-10-27] MEDS: ALLOPURINOL 100MG TABLET 100 MG PO (08:30)
[2024-10-27] MEDS: FOLIC ACID 1MG TABLET 1 MG PO (08:30)
[2024-10-27] MEDS: CARBIDOPA/LEVODOPA CR 50/200MG TABLET 1 EACH PO ×4 (08:30→22:13)
--- NOTE | 2024-10-27 09:29 | SW/DCPLANNER ---
Addendum entered by Kayrn Beasley 10/30/24 10:30: [facility] will resume services on Saturday. Magy Baptiste Addendum entered by Claudine Kiser RN 10/29/24 15:59: Per Dr. Davidson, patient is planned for discharge home tomorrow with services. Unable to reach this afternoon, but left a message with DC plans. Addendum entered by Claudine Kiser RN 10/29/24 09:32: Patient has been denied by [facility]. Spoke with patient's spouse this morning, and she stated that she is fine to bring patient home with or with Hospice, whichever Dr. Davidson feels is best. I will speak with Dr. Davidson today and reach back out to spouse with possible discharge date and plan. Addendum entered by eRema Malone 10/28/24 13:26: Patient's family is agreeable to placement at [facility]. Patient information has been faxed at this time. Addendum entered by Reema Malone 10/27/24 12:43: [facility] this patient. I spoke w/ patient's and she prefer patient return home and resume home health services w/ [facility]. Myself and Dr Davidson will continue to follow up w/ patient and family. Original Note: I spoke w/ this patient, and son regarding plans once medically stable for discharge. PT/OT evaluated patient and recommended SNF level of care. Patient was at [facility] from 08/31/24-10/20/24. expressed that she was very unhappy w/ the care at [facility]. After a lengthy conversation w/ Dr Davidson patient/family are agreeable for information to be faxed to [facility]. I will fax information this AM and continue to follow up w/ facilities. Discharge date is unknown at this time.
[2024-10-27] MEDS: MINERAL OIL ENEMA 133ML 133 ML RC (09:43)
[2024-10-27 10:26] VITALS: BMI 21.3
--- NOTE | 2024-10-27 13:20 | EXP.CARD.CON ---
History of Present Illness History of Present Illness Consult date: 10/27/24 Requesting physician: Polo Davidson Chief complaint: PEs History of present illness: 74-year-old white male established patient of our practice with a history of pulmonary embolism in 2020. In the clinic patient states he could not afford OAC due to cost and was not interested in trying alternatives. He also has a history of diastolic dysfunction, renal insufficiency, anemia. More recently his Parkinson's disease has been advancing and he was admitted through the ER yesterday for failure to thrive with frequent falls at home, colitis, and bilateral PEs. A goals of care conversation is pending. We are consulted to mange the PEs. CT here showed PE in main pulmonary arteries bilaterally without heart strain. Patient is on room air. Normal serial troponin. He denies chest pain. ECHO shows normal Bi-V function. He is agreeable to resuming OAC. [facility] Disclaimer: The information contained in this section may have been updated after the patient was seen, as this information can be updated by other users. Medical History Anemia of acute infection B12 deficiency Urinary hesitancy KYLAH (acute kidney injury) Chronic neck pain Therapeutic misadventure Syncope and collapse Acute on chronic renal failure Thoracic back pain Enlarged prostate Mass of kidney Abnormal transaminases Chest pain Parkinson's disease with dyskinesia, with fluctuations Chronic pain Facial lesion 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 GFR 30-59 CVD (cardiovascular disease) Binocular vision loss Constipation Neuropathy Acute hip pain Hip pain, right REM behavioral disorder Chronic renal failure Thyroid nodule COVID-19 Renal malignant neoplasm HLD (hyperlipidemia) Renal cell carcinoma of left kidney Gout Renal insufficiency Anemia Diabetes Thyroid nodule Enlarged thyroid Deviated septum Thyroid mass Healthcare maintenance Acute ischemic stroke History of TIA (transient ischemic attack) DM type 2 (diabetes mellitus, type 2) COPD (chronic obstructive pulmonary disease) GERD (gastroesophageal reflux disease) Single kidney Heart failure TIA (transient ischemic attack) Daytime somnolence Parkinson disease Surgical History Status post gastrointestinal surgery History of cholecystectomy Hx of appendectomy H/O left nephrectomy Family History Other No significant family history Social History Smoking Status: Former smoker tobacco type: cigarettes second hand exposure: Yes alcohol intake: current alcohol intake frequency: a few times a month substance use type: denies use current occupational status: retired Travel in the last 8 weeks: None household members: spouse housing: house marital status: current occupational exposures/hazards: No caffeine: No Review of Systems Constitutional Constitutional: Denies fatigue, Reports frequent falls and Reports weakness Eyes Eyes: Denies loss of vision ENT Ears, Nose, Mouth, and Throat: Denies hearing loss *Cardiovascular Cardiovascular: Denies chest pain and Reports dyspnea *Respiratory Respiratory: Denies cough and Reports dyspnea *Gastrointestinal Gastrointestinal: Reports change in stool character, Denies nausea and Denies vomiting *Genitourinary Genitourinary: Denies difficulty urinating *Musculoskeletal Musculoskeletal: Reports muscle weakness and Reports stiffness Integumentary/Breasts Skin/Breast: Denies changing lesions *Neurologic Neurologic: Reports system reviewed and no additional complaints, except as documented, Reports confusion, Reports frequent falls, Denies loss of vision and Reports weakness Psychiatric Psychiatric: Reports confusion Endocrine Endocrine: Denies fatigue Exam Data for Last 24 hours Vital signs and Labs for Last 24 Hours: Temp Pulse Resp BP Pulse Ox O2 Del Method O2 Flow Rate 97.6 F 74 18 126/57 L 94 L Room Air 3 10/27/24 08:00 10/27/24 08:00 10/27/24 08:00 10/27/24 08:00 10/27/24 08:00 10/27/24 11:00 10/27/24 03:00 Laboratory Results - last 24 hr 10/26/24 14:15: Troponin I < 0.01 10/27/24 06:03: WBC 9.0 D, RBC 2.74 L, Hgb 8.3 L, Hct 24.3 L, MCV 88.7, MCH 28.5, MCHC 32.1, RDW 14.6, Plt Count 170, MPV 11.2 H, Neut % (Auto) 80.6 H, Lymph % (Auto) 12.9, Pershing % (Auto) 4.5, Eos % (Auto) 0.4, Baso % (Auto) 0.2, Neut # (Auto) 7.3, Lymph # (Auto) 1.2, Pershing # (Auto) 0.4, Eos # (Auto) 0.0, Baso # (Auto) 0.0, Sodium 138, Potassium 4.0, Chloride 109 H, Carbon Dioxide 30, Anion Gap 3.0 L, BUN 32 H, Creatinine 1.20, Estimated Creat Clear 49, Estimated GFR 59, Est GFR ( Amer) 71, Glucose 96, Calcium 8.1 L, Magnesium 2.2 D, Total Bilirubin 0.7, AST 18, ALT 8 L, Alkaline Phosphatase 98, Total Protein 5.3 L, Albumin 3.1 L D, Globulin 2.2, Albumin/Globulin Ratio 1.4 I & O for Last 24 hours: Intake & Output 10/24/24 10/25/24 10/26/24 10/27/24 23:59 23:59 23:59 23:59 Intake Total 60 / 60 175 / 175 Output Total 0 / 0 450 / 450 Balance 60 / 60 -275 / -275 Weight 141 lb 144 lb 2.917 oz Microbiology Reports for the Last 24 Hours: Microbiology 10/26/24 09:25 Blood Blood Culture - Preliminary NO GROWTH AFTER 24 HOURS 10/26/24 08:55 Blood Blood Culture - Preliminary NO GROWTH AFTER 24 HOURS Constitutional Constitutional: cooperative Comments: appears very frail *Routine HEENT Exam Eye: Present PERRL *Routine Respiratory Exam Respiratory: Present CTA bilaterally; Absent accessory muscle use, wheezes or crackles *Routine Cardiovascular Exam Cardiovascular: Present RRR, Normal S1 and Normal S2; Absent murmur, gallop or rubs *Routine Abdominal Exam Abdominal: Present soft; Absent tenderness *Routine Extremities Exam Extremities: Present pulses intact; Absent cyanosis or edema *Routine Skin Exam Skin: Present intact; Absent erythema or wounds *Routine Neurological Exam Neurological: Present alert and oriented X3 Comments: flat affect, difficult moving extremeties Routine Psychiatric Exam Psychiatric: Present cooperative Meds Home Medications and Allergies Home Medications ?Medication ?Instructions ?Recorded ?Confirmed ?Type docusate sodium 50 mg capsule 100 mg PO DAILY 12/18/23 10/26/24 History simvastatin 20 mg tablet 20 mg PO HS 90 days #90 tabs 12/25/23 10/26/24 Rx pantoprazole 40 mg tablet,delayed 40 mg PO BID 06/18/24 10/26/24 History release carbidopa ER 50 mg-levodopa 200 mg 1 tab PO QID #120 tabs 06/24/24 10/26/24 Rx tablet,extended release aspirin 81 mg tablet,delayed 81 mg PO DAILY 07/08/24 10/26/24 History release (Adult Low Dose Aspirin) mecobalamin (vitamin B12) 1,000 1,000 mcg PO DAILY 07/08/24 10/26/24 History mcg lozenges allopurinol 100 mg tablet 100 mg PO DAILY 08/24/24 10/26/24 History entacapone 200 mg tablet 200 mg PO QID 08/24/24 10/26/24 History folic acid 1 mg tablet 1 mg PO DAILY 08/24/24 10/26/24 History furosemide 20 mg tablet 20 mg PO DAILYP PRN edema 08/24/24 10/26/24 History gabapentin 600 mg tablet 300 mg (1/2 x 600 mg) PO TID 30 08/31/24 10/26/24 Rx days #45 tabs hydrocodone 10 mg-acetaminophen 1 tab PO Q6HP PRN Moderate Pain 10/20/24 10/26/24 Rx 325 mg tablet (Scale Score 5-6) 30 days #120 tabs New Prescriptions to Start Prescriptions: Allergies Allergy/AdvReac Type Severity Reaction Status Date / Time mupirocin Allergy Rash Verified 08/24/24 12:12 Assessment and Plan *Assessment and plan (1) Adult failure to thrive: Status: Acute Category: Medical Code(s): R62.7 - Adult failure to thrive (2) Stercoral colitis: Status: Acute Category: Medical Code(s): K52.89 - Other specified noninfective gastroenteritis and colitis (3) Bilateral pulmonary embolism: Status: Acute Category: Medical Code(s): I26.99 - Other pulmonary embolism without acute cor pulmonale Plan Bilateral PE - known hx, noncompliant with OAC - CT here: PEs noted in main pulm arteries bilaterally, no right heart straing - ECHO: Normal Bi-V function, no RV strain - Normal Serial Trop - HR 74 - O2 94% on room air - Resume treatment dose OAC. Monitor for bleeding with colitis and anemia. - F/u in our office 2 weeks post discharge
--- NOTE | 2024-10-27 13:53 | P.PN_ITS ---
Subjective *Date: 10/27/24 *Time: 16:23 Interval history: Patient A&O x 2, awake upon arrival in the patient's room. Patient is unsure about his constipation symptoms but he does report that he was taking his stool softener once daily at home. Has had multiple bowel movements since yesterday. Still with generalized abdominal discomfort although somewhat improved. White blood cell improved to 9.0. Hemoglobin down to 8.3 but normocytic normochromic. Anion gap was 7.5 on arrival. Creatinine is normalized down to 1.2. Acetone negative. Lactate was within normal limits at 1.3 on arrival. Exam Data for Last 24 hours Vital signs and Labs for Last 24 Hours: Temp Pulse Resp BP Pulse Ox O2 Del Method O2 Flow Rate 97.6 F 74 18 126/57 L 94 L Room Air 3 10/27/24 08:00 10/27/24 08:00 10/27/24 08:00 10/27/24 08:00 10/27/24 08:00 10/27/24 11:00 10/27/24 03:00 Laboratory Results - last 24 hr 10/26/24 14:15: Troponin I < 0.01 10/27/24 06:03: WBC 9.0 D, RBC 2.74 L, Hgb 8.3 L, Hct 24.3 L, MCV 88.7, MCH 28.5, MCHC 32.1, RDW 14.6, Plt Count 170, MPV 11.2 H, Neut % (Auto) 80.6 H, Lymph % (Auto) 12.9, [place] % (Auto) 4.5, Eos % (Auto) 0.4, Baso % (Auto) 0.2, Neut # (Auto) 7.3, Lymph # (Auto) 1.2, [place] # (Auto) 0.4, Eos # (Auto) 0.0, Baso # (Auto) 0.0, Sodium 138, Potassium 4.0, Chloride 109 H, Carbon Dioxide 30, Anion Gap 3.0 L, BUN 32 H, Creatinine 1.20, Estimated Creat Clear 49, Estimated GFR 59, Est GFR ( Amer) 71, Glucose 96, Calcium 8.1 L, Magnesium 2.2 D, Total Bilirubin 0.7, AST 18, ALT 8 L, Alkaline Phosphatase 98, Total Protein 5.3 L, Albumin 3.1 L D, Globulin 2.2, Albumin/Globulin Ratio 1.4 I & O for Last 24 hours: Intake & Output 10/25/24 10/26/24 10/27/24 10/28/24 11:59 11:59 11:59 11:59 Intake Total 235 Output Total 450 Balance -215 Weight 61.235 kg 65.4 kg Microbiology Reports for the Last 24 Hours: Microbiology 10/26/24 09:25 Blood Blood Culture - Preliminary NO GROWTH AFTER 24 HOURS 10/26/24 08:55 Blood Blood Culture - Preliminary NO GROWTH AFTER 24 HOURS Assessment and Plan *Assessment and plan (1) Generalized abdominal pain: Status: Acute Category: Medical Code(s): R10.84 - Generalized abdominal pain (2) Adult failure to thrive: Status: Acute Category: Medical Code(s): R62.7 - Adult failure to thrive (3) Stercoral colitis: Status: Acute Category: Medical Code(s): K52.89 - Other specified noninfective gastroenteritis and colitis Plan 1. Stercoral colitis/abdominal pain Significant generalized abdominal pain with large amount of stool throughout the colon and resulting inflammatory response. White blood cell count has improved to normal at 9.0. Lactate within normal limits on arrival. Acetone negative. Anion gap 7.5 and normal on arrival. Creatinine is normalized at 1.2. No signs of abscess or perforation on CT scan. Predominantly inflammatory process no signs of infection. Patient has been on hydrocodone for pain relief and docusate sodium as he only documented at home treatment. Patient reports single stool softener daily at home. He is unsure of his bowel habits. Abdominal pain slightly improved since yesterday. He has had multiple bowel movement since yesterday. If he goes home with p.o. pain medication, will need more aggressive bowel regimen.
--- NOTE | 2024-10-27 15:54 | P.PN_ITS ---
Subjective *Date: 10/27/24 *Time: 15:54 Interval history: Patient still quite weak today but oriented to self and place. Answering questions slowly but appropriately. at bedside on exam this morning. Patient afebrile. Slowly taking his medications. Has lost significant weight per chart review. Denies chest pain or shortness of breath. Stable on room air Medical Exam Vital signs and Labs for Last 24 Hours: Vital Signs Temp Pulse Resp BP Pulse Ox O2 Del Method O2 Flow Rate 10/27/24 15:00 Room Air 10/27/24 13:00 Room Air 10/27/24 11:00 Room Air 10/27/24 09:00 Room Air 10/27/24 08:00 94 L Room Air 10/27/24 08:00 97.6 F 74 18 126/57 L 94 L Room Air 10/27/24 07:00 Room Air 10/27/24 05:00 Room Air 10/27/24 04:00 97.6 F 62 20 112/52 L 96 Room Air 10/27/24 03:00 Nasal Cannula 3 10/27/24 01:00 Nasal Cannula 3 10/27/24 00:20 98.7 F 68 22 179/74 H 95 Room Air 10/26/24 23:00 Nasal Cannula 3 10/26/24 21:00 Nasal Cannula 3 10/26/24 20:00 Nasal Cannula 3 10/26/24 20:00 97.5 F L 66 16 107/37 L 100 Nasal Cannula 3 10/26/24 18:41 Nasal Cannula 3 10/26/24 17:00 Nasal Cannula 10/26/24 16:00 98.1 F 62 18 106/54 L 94 L Room Air Intake and Output 10/26/24 10/27/24 10/27/24 23:59 07:59 15:59 Intake Total 60 / 60 415 / 415 Output Total 0 / 0 450 / 450 Balance 60 / 60 -450 / -35 415 / -35 Intake: Intake, Oral Amount 60 / 60 415 / 415 Output: Output, Urine Amount 0 / 0 450 / 450 Other: Number of Unmeasured Voids 1 1 Number of Bowel Movements 1 1 1 Weight 65.499 kg 65.4 kg Patient Weight 10/27/24 23:59 Weight 65.4 kg Laboratory Results - last 24 hr 10/27/24 06:03: WBC 9.0 D, RBC 2.74 L, Hgb 8.3 L, Hct 24.3 L, MCV 88.7, MCH 28.5, MCHC 32.1, RDW 14.6, Plt Count 170, MPV 11.2 H, Neut % (Auto) 80.6 H, Lymph % (Auto) 12.9, [place] % (Auto) 4.5, Eos % (Auto) 0.4, Baso % (Auto) 0.2, Neut # (Auto) 7.3, Lymph # (Auto) 1.2, [place] # (Auto) 0.4, Eos # (Auto) 0.0, Baso # (Auto) 0.0, Sodium 138, Potassium 4.0, Chloride 109 H, Carbon Dioxide 30, Anion Gap 3.0 L, BUN 32 H, Creatinine 1.20, Estimated Creat Clear 49, Estimated GFR 59, Est GFR ( Amer) 71, Glucose 96, Calcium 8.1 L, Magnesium 2.2 D, Total Bilirubin 0.7, AST 18, ALT 8 L, Alkaline Phosphatase 98, Total Protein 5.3 L, Albumin 3.1 L D, Globulin 2.2, Albumin/Globulin Ratio 1.4 I & O for Labs for Last 24 Hours: Intake & Output 10/24/24 10/25/24 10/26/24 10/27/24 23:59 23:59 23:59 23:59 Intake Total 60 / 60 415 / 415 Output Total 0 / 0 450 / 450 Balance 60 / 60 -35 / -35 Weight 63.957 kg 65.4 kg Microbiology Reports for the Last 24 Hours: Microbiology 10/26/24 09:25 Blood Blood Culture - Preliminary NO GROWTH AFTER 24 HOURS 10/26/24 08:55 Blood Blood Culture - Preliminary NO GROWTH AFTER 24 HOURS Constitutional: Present mild distress, thin, chronically ill appearing and cooperative Head: Present atraumatic and normocephalic ENT: Present normal exam Neck: Present normal inspection Respiratory: Present rhonchi and normal respiratory effort; Absent accessory muscle use, wheezes or crackles Cardiac: Present Reg Rate and Rhythm GI: Present soft and tenderness (Right upper quadrant, interval improvement); Absent distention Extremities: Present normal inspection and full ROM Skin: Present intact; Absent erythema Neuro: Present Cranial Nerve 2-12 Intact, Grossly Intact, alert, awake and moves all extremities Comment:: Oriented to self and place Assessment and Plan *Assessment and plan (1) Bilateral pulmonary embolism: Status: Acute Category: Medical Code(s): I26.99 - Other pulmonary embolism without acute cor pulmonale (2) Adult failure to thrive: Status: Acute Category: Medical Code(s): R62.7 - Adult failure to thrive (3) Stercoral colitis: Status: Acute Category: Medical Code(s): K52.89 - Other specified noninfective gastroenteritis and colitis (4) Sacral wound: Status: Acute Category: Medical Code(s): S31.000A - Unspecified open wound of lower back and pelvis without penetration into retroperitoneum, initial encounter (5) Severe protein-calorie malnutrition: Status: Acute Category: Medical Code(s): E43 - Unspecified severe protein-calorie malnutrition (6) DM type 2 (diabetes mellitus, type 2): Status: Acute Qualifiers: Diabetes mellitus historic interpreter insulin use: without historic interpreter use Diabetes mellitus complication status: with other specified complication Qualified Code(s): E11.69 - Type 2 diabetes mellitus with other specified complication Category: Medical Code(s): E11.9 - Type 2 diabetes mellitus without complications (7) HTN (hypertension): Status: Chronic Qualifiers: Hypertension type: essential hypertension Qualified Code(s): I10 - Essential (primary) hypertension Category: Medical Code(s): I10 - Essential (primary) hypertension (8) Parkinson disease: Status: Acute Category: Medical Code(s): G20.A1 - Parkinson's disease without dyskinesia, without mention of fluctuations (9) Pneumonia: Status: Acute Category: Medical Code(s): J18.9 - Pneumonia, unspecified organism Plan Hung Maravilla is a 74-year-old [place] with past medical history of Parkinson's disease, hypertension, diabetes, CKD, CVD, anemia, gout, hyperlipidemia, diastolic heart failure who presents due to failure to thrive, falls at home. Patient recently left [facility] because he and the family did not like it, went home. Has had falls, decreased appetite, and failure to thrive. WBC 14.9, with evidence of stercoral colitis on CT. also found to have bilateral PEs on CTA. Case discussed ED provider and decision was made to admit patient for prior to thrive. GI was consulted by ED for stercoral colitis. #Failure to thrive #Cognitive, functional decline #Bilateral pulmonary emboli #Falls at home #Sacral wound #Parkinson's dementia/disease Pneumonia# ? Unfortunately due to patient's advancing Parkinson's disease, patient has had cognitive and functional disincline for quite some time. Has been in and out of nursing facilities. Given progressive cognitive, functional decline and multiple comorbidities, patient will benefit from goals of care conversation among family. Discussed attempting placement. If not excepted, would like to take him home. ? Continue therapeutic Lovenox for bilateral PE. Weaned to room air overnight. On room air this morning on rounds. - Cardiology consulted to assist with PEs and for outpatient management. Discussed case this morning. Recommended obtaining echo. Echo obtained showing normal BiV function with no RV strain. Resume oral anticoagulation with Eliquis -Per CT, has right sided pneumonia. Given his comorbidities with Parkinson's, recent intermediate stay, male and age, he is PSI/port class IV risk. Necessitating inpatient management/admission -Continue Zosyn for pneumonia and stercoral colitis -White count normal today at 9. Hemoglobin 8.3. Repeat CBC, CMP, magnesium ordered for the morning. Fecal impaction Stercoral colitis Severe protein calorie malnutrition ? Alternate mineral oil, soapsuds enemas. Start oral laxatives once patient begins having bowel movements. -Bowel movement overnight. Feeling somewhat better ? PT/OT consulted, recommend SNF. Case management assisting. ? Wound care consulted for sacral wound. Parkinson's disease: Carbidopa/levodopa 4 times a day, caution with delirium medications due to risk for extraparametal symptoms and NMS. CKD: Minimize use of nephrotoxic drugs, BUN 32, creatinine 1.2. Stable today. Diastolic heart failure: Continue Lasix as needed. CVD: Continue aspirin, statin. Gout: Allopurinol 100 mg p.o. daily Hyperlipidemia: Simvastatin 20 mg p.o. daily DNR/DNI Therapeutic Lovenox Regular diet
[2024-10-27 16:00] VITALS: BP 129/58; PULSE 65; RESP 18; TEMP 37; O2SAT 97
--- NOTE | 2024-10-27 16:06 | PC.NURSE ---
patient has been a/ox4 this shift. patient has had several BM this shift, see chart. dressing has been applied to bottom. q2 turns. rivera d/c at 1522. patient has been tolerating diet w assist feed. no c/o pain this shift. call light within reach.
[2024-10-27 20:00] VITALS: BP 111/64; PULSE 65; RESP 16; TEMP 36.4; O2SAT 96
[2024-10-27] MEDS: OLANZapine 10 MG VIAL 5 MG IM (22:09)
[2024-10-27] MEDS: PANTOPRAZOLE 40MG TABLET 40 MG PO (22:13)
[2024-10-27] MEDS: PRAVASTATIN 40MG TAB 40 MG PO (22:13)
[2024-10-27] MEDS: APIXABAN 5MG TABLET 10 MG PO (22:13)
[2024-10-28] VITALS (25 sets, daily range): BP systolic 106–155; BP diastolic 51–97; PULSE 58–86; RESP 16–21; TEMP 35.9–37.3; O2SAT 93–99; BMI 21.4
--- NOTE | 2024-10-28 01:04 | P.EN_ITS ---
Problem per nurse: Patient coughing quite a bit after taking. thin liquids she had checked with the but the said that a few weeks ago he was evaluated and they wanted to give him thickened liquid he refused exam: Per nurse patient is not tolerating thin liquids. Patient sleeping at this point in time and no other distress Plan: Will order bedside swallow study. Per change of her report decisions will be made tomorrow as for either placement in skilled facility. Per nursing the patient has been rejected from's 3 half-way facilities and the fourth 1 that he was in the did not like and does not want to return to..
[2024-10-28] MEDS: PIPERCILLIN/TAZO 3.375 GM in 0.9 % SODIUM CHLORIDE 50 ML IV ×2 (02:42→10:02)
--- NOTE | 2024-10-28 04:23 | PC.NURSE ---
at beggining of shift pt was becoming agitated. repositioned and changed pts brief after a bm and treated agitation per mar. pt has since been pleasant. no issues and has slept the last couple of hrs. q2 turns due to breakdown on buttocks. gave pt water (thin liquid) and pt began coughing significantly. notified jacky GONZALEZ. pts called, gave her an update and she mentioned pt recently had his swallowing checked , stating pt has recently ref thickened liquids at the nursing facility he was at. bed alarm on for pt safety.
[2024-10-28 06:56] LABS: Basophils % 0.3 % (0.1-2.0); Eosinophils # 0.1 K/mm3 (0.0-0.4); Eosinophils % 1.1 % (0.1-12.0); Hematocrit 22.1 % (42.0-52.0); Lymphocytes # 1.1 K/mm3 (0.7-4.5); Lymphocytes % 18.2 % (10-50); Mean Corpuscular HGB Conc 31.7 g/dL (31.8-35.4); Mean Corpuscular Hemoglobin 28.6 pg (27.0-31.2); Mean Corpuscular Volume 90.2 fl (80-94); Mean Platelet Volume 10.3 fl (7.4-10.4); Monocytes # 0.5 K/mm3 (0.1-1.0); Monocytes % 8.2 % (1.7-9.3); Neutrophils # 4.3 K/mm3 (1.8-7.8); Neutrophils % 70.7 % (37.0-80.0); Platelet Count 157 K/mm3 (142-424); Red Blood Count 2.45 M/mm3 (4.60-6.20); Red Cell Distribution Width 15.3 % (11.5-17.5); White Blood Count 6.1 K/mm3 (4.8-10.8)
[2024-10-28 07:09] LABS: Chloride 110 mmol/L (98-107); Sodium 139 mmol/L (136-145)
[2024-10-28 07:10] LABS: Potassium 3.6 mmoL/L (3.5-5.1)
[2024-10-28 07:12] LABS: Alanine Aminotransferase 6 U/L (12-78); Albumin/Globulin Ratio 1.3 (1.1-1.8); Alkaline Phosphatase 90 U/L (38-126); Anion Gap 4.6 mEq/L (5-15); Aspartate Amino Transferase 16 U/L (17-59); Bilirubin,Total 0.5 mg/dl (0.2-1.3); Blood Urea Nitrogen 25 mg/dl (9-20); Carbon Dioxide 28 mmol/L (22.0-30.0); Creatinine Clearance Estimated 54 mL/min (50-200); Estimated Glomerular Filt Rate 65 ml/min (>60); GFR (African American) 79 ML/MIN (>60); Globulin 2.3 g/dL (1.3-3.2); Total Protein,Serum 5.3 g/dl (6.3-8.2)
[2024-10-28 07:13] LABS: Glucose 83 mg/dl (74-100)
[2024-10-28] MEDS: ASPIRIN EC 81MG TABLET 81 MG PO (08:27)
[2024-10-28] MEDS: FOLIC ACID 1MG TABLET 1 MG PO (08:27)
[2024-10-28] MEDS: CARBIDOPA/LEVODOPA CR 50/200MG TABLET 1 EACH PO ×3 (08:27→21:41)
[2024-10-28] MEDS: DOCUSATE SODIUM 100 MG CAPSULE PO (08:28)
[2024-10-28] MEDS: ALLOPURINOL 100MG TABLET 100 MG PO (08:28)
[2024-10-28] MEDS: GABAPENTIN 300MG CAPSULE 300 MG PO ×2 (08:28→21:41)
[2024-10-28] MEDS: APIXABAN 5MG TABLET 10 MG PO ×2 (08:28→21:41)
--- NOTE | 2024-10-28 08:43 | HMH.PTWOUND ---
Rehab Inpt Wound Evaluation Rehab IP Wound Evaluation Start: 10/27/24 00:59 Freq: ONCE Status: Active Protocol: Document 10/28/24 08:39 KATHARINA (Rec: 10/28/24 08:43 PHORCONRAD [id number]) Rehab PT Wound Assessment Subjective Subjective Pt oriented x 2 on arrival. Pt agreeable to engage in therapy evaluation. Pt admitted on 10/26/24 due to syncope, PE, fecal impaction. History and physical: This patient is a 74-year-old male with a history of Parkinson's disease, hypertension, diabetes, CKD, CVD, anemia, gout, hyperlipidemia, diastolic heart failure presenting to the emergency department for evaluation with concern for generally feeling unwell. According to EMS, they were called to the patient's home by family member who brought patient home from nursing facility 6 days ago. Since coming home, the patient had reportedly been doing well, but has not wanted to eat or drink the last day or so and then had a syncopal episode today. They also noted concerns for sacral wounds, which family is not treating at home. They report that the patient was brought home from the nurse facility because they were not happy with the care that was received there. EMS notes that en route, he was complaining of pain all over, especially in his abdomen, and he also noted that he had a cough and hypoxia for which he was put on 2 L nasal cannula. I reviewed medical records and noted that the patient was discharged there 08/31/2024 after hospital stay for metabolic encephalopathy, sepsis, cholangitis, choledocholithiasis. He underwent ERCP at that time and it was recommended that he have a follow-up ERCP in 3 months with removal of biliary stent. Currently, patient is alert and oriented x 4 but states he does not know how long is been feeling bad. He states that he feels awful and is hurting all over, especially his belly. Pain is not localizable in his abdomen. He does not provide further history, as he is very ill-appearing. Pt with sacral /buttock pressure injury upon admission. Wound Sacrum Wound Type Pressure Ulcer Is This a Chronic Wound Yes Wound Staging Stage I Query Text:Stage I - Unbroken, red skin, no blanching. Stage II - Skin broken, superficial skin loss involving epidermis alone or also dermis. Partial loss of skin layers. Stage III - Pressure area involves epidermis, dermis and subcutaneous tissue, full thickness skin loss. Stage IV - Pressure area involves epidermis, subcutaneous tissue, bone and other supportive tissue. Full thickness skin loss with extensive destruction of underlying tissue and structures. Wound Length (cm) 6.0 Wound Width (cm) 6.0 Wound Margins Description Well Defined Primary Dressing Composite Dressing Change Patient Tolerance Tolerated Well Plan/Recommendation Comment Currently wound is Stage I pressure injury with dark purple color on the R side buttock area. Nsg staff is performing all appropriate dressing changes and pressure relief as indicated at this time. No current needs for debridement, but pt decreased mobility is likely to exacerbate this pressure injury. Eval Complexity Eval Charge Codes 82543 - High Complexity PHYSICIAN CERTIFICATION: I certify the specified therapy services for Hung Maravilla are required, authorized, and reviewed every 30 days.
[2024-10-28] MEDS: PANTOPRAZOLE 40MG VIAL 40 MG IV ×2 (10:02→21:41)
--- NOTE | 2024-10-28 12:57 | EXP.MED.FU ---
Subjective *Date: 10/28/24 *Time: 12:57 Interval history: Patient awake and alert. He knows his name and where he is. Able to answer multiple questions appropriately. Abdominal pain has resolved. No tenderness with palpation. Dropped his hemoglobin to 7.0 this morning. Nursing noted a single dark stool overnight. Has struggled with anemia for months looking back over lab work. Previously macrocytic and hyperchromic. Currently normocytic and normochromic. Exam Data for Last 24 hours Vital signs and Labs for Last 24 Hours: Temp Pulse Resp BP Pulse Ox O2 Del Method O2 Flow Rate 97.6 F 86 18 106/87 L 94 L Room Air 3 10/28/24 08:00 10/28/24 08:00 10/28/24 08:00 10/28/24 08:00 10/28/24 08:00 10/28/24 10:46 10/27/24 03:00 Laboratory Results - last 24 hr 10/28/24 06:45: WBC 6.1 D, RBC 2.45 L, Hgb 7.0 L, Hct 22.1 L, MCV 90.2, MCH 28.6, MCHC 31.7 L, RDW 15.3, Plt Count 157, MPV 10.3, Neut % (Auto) 70.7, Lymph % (Auto) 18.2, [place] % (Auto) 8.2, Eos % (Auto) 1.1, Baso % (Auto) 0.3, Neut # (Auto) 4.3, Lymph # (Auto) 1.1, [place] # (Auto) 0.5, Eos # (Auto) 0.1, Baso # (Auto) 0.0, Sodium 139, Potassium 3.6, Chloride 110 H, Carbon Dioxide 28, Anion Gap 4.6 L, BUN 25 H, Creatinine 1.10, Estimated Creat Clear 54, Estimated GFR 65, Est GFR ( Amer) 79, Glucose 83, Calcium 8.0 L, Magnesium 2.0, Total Bilirubin 0.5, AST 16 L, ALT 6 L, Alkaline Phosphatase 90, Total Protein 5.3 L, Albumin 3.0 L, Globulin 2.3, Albumin/Globulin Ratio 1.3 10/28/24 07:46: Blood Type O Positive, Antibody Screen Negative, Crossmatch (G) See Detail I & O for Last 24 hours: Intake & Output 10/26/24 10/27/24 10/28/24 10/29/24 11:59 11:59 11:59 11:59 Intake Total 235 460 Output Total 450 300 Balance -215 160 Weight 61.235 kg 65.4 kg 65.816 kg Microbiology Reports for the Last 24 Hours: Microbiology 10/26/24 09:25 Blood Blood Culture - Preliminary NO GROWTH AFTER 48 HOURS 10/26/24 10:32 Urine,Clean Catch Urine Culture - Final No growth. 10/26/24 08:55 Blood Blood Culture - Preliminary NO GROWTH AFTER 48 HOURS Constitutional Constitutional: no acute distress, thin and chronically ill appearing *Routine HEENT Exam Head: Present normocephalic and atraumatic ENT: Present mucous membranes dry *Routine Respiratory Exam Respiratory: Present rhonchi (Mild rhonchi) *Routine Cardiovascular Exam Cardiovascular: Present RRR *Routine Abdominal Exam Abdominal: Present soft; Absent tenderness Assessment and Plan *Assessment and plan (1) Generalized abdominal pain: Status: Acute Category: Medical Code(s): R10.84 - Generalized abdominal pain (2) Adult failure to thrive: Status: Acute Category: Medical Code(s): R62.7 - Adult failure to thrive (3) Stercoral colitis: Status: Acute Category: Medical Code(s): K52.89 - Other specified noninfective gastroenteritis and colitis (4) Anemia: Status: Acute Qualifiers: Anemia type: unspecified type Qualified Code(s): D64.9 - Anemia, unspecified Category: Medical Code(s): D64.9 - Anemia, unspecified Plan 1. Stercoral colitis/abdominal pain Significant generalized abdominal pain with large amount of stool throughout the colon and resulting inflammatory response. White blood cell count normal at 6.1. Patient has had multiple BMs since admission. Abdominal pain has resolved. I would recommend continued once daily lactulose as an outpatient to maintain bowel function. 2. anemia Hgb dropped to 7.0 this morning. Patient awaiting PRBC for transfusion. Patient has struggled with anemia for multiple months. During hospitalization back in August hemoglobin was just above 9 but macrocytic and hyperchromic. Has been normocytic and normochromic during this admission. Poor p.o. intake since admission in August. single dark stool last night per nursing. I will go ahead and check iron levels and Hemoccult.
--- NOTE | 2024-10-28 13:20 | PC.NURSE ---
Contacted lab for an upadate on blood product, they stated that they were still awaiting blood from the [facility].
--- NOTE | 2024-10-28 15:58 | EXP.ACUTE.PN ---
Subjective *Date: 10/28/24 *Time: 15:58 Interval history: Patient weak today but little bit more interactive. feels his speech is better. Still necessitating two-person assist to get up from bed. Stable on room air. No nausea or vomiting. Hemoglobin dropped this morning. GI consulted to evaluate for possible etiology of anemia. Medical Exam Vital signs and Labs for Last 24 Hours: Vital Signs Temp Pulse Resp BP Pulse Ox O2 Del Method 10/28/24 13:00 Room Air 10/28/24 10:46 Room Air 10/28/24 09:00 Room Air 10/28/24 08:00 Room Air 10/28/24 08:00 97.6 F 86 18 106/87 L 94 L Room Air 10/28/24 07:00 Room Air 10/28/24 05:00 Room Air 10/28/24 03:45 97.6 F 64 16 129/58 L 95 Room Air 10/28/24 03:00 Room Air 10/28/24 01:00 Room Air 10/27/24 23:00 Room Air 10/27/24 21:00 Room Air 10/27/24 20:00 Room Air 10/27/24 20:00 97.5 F L 65 16 111/64 96 Room Air 10/27/24 18:44 Room Air 10/27/24 17:00 Room Air 10/27/24 16:00 98.6 F 65 18 129/58 L 97 Room Air Intake and Output 10/27/24 10/28/24 10/28/24 23:59 07:59 15:59 Intake Total 220 / 635 Output Total 0 / 0 0 / 0 Balance 220 / -115 0 / 0 0 / 0 Intake: Intake, Oral Amount 220 / 635 Output: Output, Urine Amount 0 / 0 0 / 0 Other: Number of Unmeasured Voids 1 Number of Bowel Movements 1 1 1 Weight 65.816 kg Patient Weight 10/28/24 23:59 Weight 65.816 kg Laboratory Results - last 24 hr 10/28/24 06:45: WBC 6.1 D, RBC 2.45 L, Hgb 7.0 L, Hct 22.1 L, MCV 90.2, MCH 28.6, MCHC 31.7 L, RDW 15.3, Plt Count 157, MPV 10.3, Neut % (Auto) 70.7, Lymph % (Auto) 18.2, [place] % (Auto) 8.2, Eos % (Auto) 1.1, Baso % (Auto) 0.3, Neut # (Auto) 4.3, Lymph # (Auto) 1.1, [place] # (Auto) 0.5, Eos # (Auto) 0.1, Baso # (Auto) 0.0, Sodium 139, Potassium 3.6, Chloride 110 H, Carbon Dioxide 28, Anion Gap 4.6 L, BUN 25 H, Creatinine 1.10, Estimated Creat Clear 54, Estimated GFR 65, Est GFR ( Amer) 79, Glucose 83, Calcium 8.0 L, Magnesium 2.0, Total Bilirubin 0.5, AST 16 L, ALT 6 L, Alkaline Phosphatase 90, Total Protein 5.3 L, Albumin 3.0 L, Globulin 2.3, Albumin/Globulin Ratio 1.3 10/28/24 07:46: Blood Type O Positive, Antibody Screen Negative, Crossmatch (AHG) See Detail I & O for Labs for Last 24 Hours: Intake & Output 10/25/24 10/26/24 10/27/24 10/28/24 23:59 23:59 23:59 23:59 Intake Total 60 / 60 635 / 635 Output Total 0 / 0 750 / 750 0 / 0 Balance 60 / 60 -115 / -115 0 / 0 Weight 63.957 kg 65.4 kg 65.816 kg Microbiology Reports for the Last 24 Hours: Microbiology 10/26/24 09:25 Blood Blood Culture - Preliminary NO GROWTH AFTER 48 HOURS 10/26/24 10:32 Urine,Clean Catch Urine Culture - Final No growth. 10/26/24 08:55 Blood Blood Culture - Preliminary NO GROWTH AFTER 48 HOURS Constitutional: Present mild distress, thin, chronically ill appearing and cooperative Head: Present atraumatic and normocephalic ENT: Present normal exam Neck: Present normal inspection Respiratory: Present rhonchi and normal respiratory effort; Absent accessory muscle use, wheezes or crackles Cardiac: Present Reg Rate and Rhythm GI: Present soft and tenderness (Right upper quadrant, interval improvement); Absent distention Extremities: Present normal inspection and full ROM Skin: Present intact; Absent erythema Neuro: Present Cranial Nerve 2-12 Intact, Grossly Intact, alert, awake and moves all extremities Comment:: Oriented to self and place Assessment and Plan *Assessment and plan (1) Bilateral pulmonary embolism: Status: Acute Category: Medical Code(s): I26.99 - Other pulmonary embolism without acute cor pulmonale (2) Adult failure to thrive: Status: Acute Category: Medical Code(s): R62.7 - Adult failure to thrive (3) Anemia: Status: Acute Qualifiers: Anemia type: unspecified type Qualified Code(s): D64.9 - Anemia, unspecified Category: Medical Code(s): D64.9 - Anemia, unspecified (4) Stercoral colitis: Status: Acute Category: Medical Code(s): K52.89 - Other specified noninfective gastroenteritis and colitis (5) Sacral wound: Status: Acute Category: Medical Code(s): S31.000A - Unspecified open wound of lower back and pelvis without penetration into retroperitoneum, initial encounter (6) Severe protein-calorie malnutrition: Status: Acute Category: Medical Code(s): E43 - Unspecified severe protein-calorie malnutrition (7) DM type 2 (diabetes mellitus, type 2): Status: Acute Qualifiers: Diabetes mellitus electroplating technician insulin use: without electroplating technician use Diabetes mellitus complication status: with other specified complication Qualified Code(s): E11.69 - Type 2 diabetes mellitus with other specified complication Category: Medical Code(s): E11.9 - Type 2 diabetes mellitus without complications (8) HTN (hypertension): Status: Chronic Qualifiers: Hypertension type: essential hypertension Qualified Code(s): I10 - Essential (primary) hypertension Category: Medical Code(s): I10 - Essential (primary) hypertension (9) Parkinson disease: Status: Acute Category: Medical Code(s): G20.A1 - Parkinson's disease without dyskinesia, without mention of fluctuations (10) Pneumonia: Status: Acute Category: Medical Code(s): J18.9 - Pneumonia, unspecified organism Plan Hung Maravilla is a 74-year-old [place] with past medical history of Parkinson's disease, hypertension, diabetes, CKD, CVD, anemia, gout, hyperlipidemia, diastolic heart failure who presents due to failure to thrive, falls at home. [facility] he and the family did not like it, went home. Has had falls, decreased appetite, and failure to thrive. WBC 14.9, with evidence of stercoral colitis on CT. also found to have bilateral PEs on CTA. Case discussed ED provider and decision was made to admit patient for prior to thrive. GI seeing for anemia. Continues to require inpatient management. Working on placement. #Failure to thrive #Cognitive, functional decline #Bilateral pulmonary emboli #Falls at home #Sacral wound #Parkinson's dementia/disease #Pneumonia ? Unfortunately due to patient's advancing Parkinson's disease, patient has had cognitive and functional disincline for quite some time. Has been in and out of nursing facilities. Given progressive cognitive, functional decline and multiple comorbidities, patient will benefit from goals of care conversation among family. Discussed attempting placement. If not excepted, would like to take him home. ?Initiated on Eliquis. 10 mg twice daily for a week, transition to 5 mg twice daily thereafter - Cardiology consulted to assist with PEs and for outpatient management. Discussed case this morning. Echo with no right heart strain. showing normal BiV function with no RV strain. -Per CT, has right sided pneumonia. Given his comorbidities with Parkinson's, recent detention stay, male and age, he is PSI/port class IV risk. Necessitating inpatient management/admission -Discontinue Zosyn today. White count normal at 6.1. Repeat CBC, CMP, magnesium ordered for the morning. Anemia - Discussed case with GI, recommend initiating once daily lactulose to maintain bowel function. In regard to hemoglobin drop, recommend iron levels and Hemoccult. -Hemoglobin 7 this morning. Transfusing 2 units. Transfusion threshold hemoglobin less than or equal to 7. Concern for possible GI source of blood loss. - Patient with competing complex diseases with concern for anemia secondary to blood loss in light of bilateral PEs as above necessitating anticoagulation. Will discontinue aspirin. -Continue pantoprazole 40 mg twice daily Fecal impaction Stercoral colitis Severe protein calorie malnutrition ?Continue docusate daily. Initiate lactulose 20 g daily. ? PT/OT consulted, recommend SNF. Case management assisting. ? Wound care consulted for sacral wound. Parkinson's disease: Carbidopa/levodopa 4 times a day, caution with delirium medications due to risk for extraparametal symptoms and NMS. CKD: Minimize use of nephrotoxic drugs, BUN 25, creatinine 1.1 Stable today. Diastolic heart failure: Continue Lasix as needed. CVD: Continue statin. Gout: Allopurinol 100 mg p.o. daily Hyperlipidemia: Simvastatin 20 mg p.o. daily DNR/DNI Eliquis Regular diet
--- NOTE | 2024-10-28 17:26 | PC.NURSE ---
Pt has been more alert this shift and is more aware of the situation. He has been sleeping on and off most of shift and was turned and repositioned. He was assisted with meals, Pt did well eating and drinking. He also did well with taking pills whole with water today. Family was at bedside this morning and updated throughout the day on how the pt was. been awaiting blood from blood bank most of day. Pt is lying in bed with bed alarm on and call light in reach.
[2024-10-28] MEDS: SODIUM CHLORIDE 0.9% 10ML VIAL 10 ML IV (21:41)
[2024-10-28] MEDS: PRAVASTATIN 40MG TAB 40 MG PO (21:41)
--- NOTE | 2024-10-28 21:51 | PC.NURSE ---
Addendum entered by Elza Rowe RN 10/29/24 00:46: A total of 500 mL of blood products was administered for the patient (on 10/28/23). First unit (250 mL) was started during the previous shift and finished during this shift; second unit (250 mL) was started and finished during this shift. Post H/H was drawn for 00:30. All TAR vital signs completed. Original Note: Manual Edit for TAR Vitals (for 21:00): blood product unit [id number] 21:00 vital assessment is for 30 minute vitals, not 45 minute vitals (error, see TAR). Also: Vitals were accidentally entered under the previous blood product unit (will show multiple units ). The vital signs for 21:00, 21:15, and 21:30 were duplicated for correction; they are for this current blood product unit that is still transfusing (second bag).
[2024-10-29 01:05] LABS: Hematocrit 25.6 % (42.0-52.0)
[2024-10-29 01:30] LABS: Hemoglobin 8.2 g/dL (14.1-18.0)
[2024-10-29 02:17] LABS: Occult Blood,Stool Negative (Negative)
[2024-10-29 04:00] VITALS: BMI 21.0
[2024-10-29 04:54] VITALS: BP 153/81; PULSE 68; RESP 17; O2SAT 94
--- NOTE | 2024-10-29 05:45 | PC.NURSE ---
Addendum entered by Elza Rowe RN 10/29/24 06:41: Patient was given an apple juice to drink this morning per his request. He was positioned to sit upright with chin tucked. Some coughing was noticed in between sips + afterwards. Original Note: Patient is alert and oriented; little to no confusion episodes noted. Patient did not show any aggression, resistance to care, nor combativeness this shift. He was observed to have eyes closed, respirations even and unlabored on room air, and no apparent distress for the majority of the night. Two units of blood were administered for the patient, starting on day shift and ending on night auditor; post H/H showed a little increase after the transfusions (Hgb: 8.2, Hct: 25.6). Patient tolerated the blood transfusions very well. Vital signs remain relatively stable. However, blood pressures were elevated. Patient has a stage II pressure area on his coccyx; the dressing was changed this shift due to soiling. He has been repositioned every 2 hours this shift to avoid further skin breakdown. A skin tear on his left elbow and a tear over his knuckles on his right hand were assessed. Tear on elbow is closed, tear on knuckles is open. The open tear was bandaged with sterile gauze and coban due to bleeding. Some redness was noticed on the lower part of his scrotum. Patient is incontinent of stool and urine; a brief is in place and patient has been checked/changed this shift. A stool sample was collected and sent this shift; occult blood negative. Scheduled medications were administered per NOV. Aspiration precautions performed. Patient swallowed his PO medications whole in applesauce without difficulties. At this time, the patient is resting in bed without any further complaints. Bed alarm on. Call light within reach.
[2024-10-29 06:52] LABS: Chloride 112 mmol/L (98-107); Potassium 3.8 mmoL/L (3.5-5.1); Sodium 140 mmol/L (136-145)
[2024-10-29 06:54] LABS: Alanine Aminotransferase 6 U/L (12-78); Aspartate Amino Transferase 15 U/L (17-59); Blood Urea Nitrogen 17 mg/dl (9-20); Creatinine Clearance Estimated 58 mL/min (50-200); Estimated Glomerular Filt Rate 82 ml/min (>60); GFR (African American) 100 ML/MIN (>60)
[2024-10-29 06:55] LABS: Albumin/Globulin Ratio 1.3 (1.1-1.8); Alkaline Phosphatase 83 U/L (38-126); Anion Gap 5.8 mEq/L (5-15); Bilirubin,Total 0.6 mg/dl (0.2-1.3); Calcium 8.2 mg/dl (8.4-10.2); Carbon Dioxide 26 mmol/L (22.0-30.0); Globulin 2.3 g/dL (1.3-3.2); Glucose 80 mg/dl (74-100); Magnesium 1.9 mg/dl (1.6-2.3); Total Protein,Serum 5.3 g/dl (6.3-8.2)
[2024-10-29 07:07] LABS: Iron 80 ug/dL (49-181)
[2024-10-29 07:16] LABS: Total Iron Binding Capacity 138 ug/dL (261-462)
[2024-10-29 07:34] LABS: Basophils % 0.2 % (0.1-2.0); Eosinophils % 0.9 % (0.1-12.0); Hematocrit 26.9 % (42.0-52.0); Hemoglobin 8.5 g/dL (14.1-18.0); Lymphocytes # 0.9 K/mm3 (0.7-4.5); Lymphocytes % 19.9 % (10-50); Mean Corpuscular HGB Conc 31.6 g/dL (31.8-35.4); Mean Corpuscular Hemoglobin 28.6 pg (27.0-31.2); Mean Corpuscular Volume 90.6 fl (80-94); Mean Platelet Volume 10.7 fl (7.4-10.4); Monocytes # 0.4 K/mm3 (0.1-1.0); Monocytes % 8.6 % (1.7-9.3); Neutrophils # 3.2 K/mm3 (1.8-7.8); Neutrophils % 68.9 % (37.0-80.0); Platelet Count 139 K/mm3 (142-424); Red Blood Count 2.97 M/mm3 (4.60-6.20); Red Cell Distribution Width 15.5 % (11.5-17.5); White Blood Count 4.7 K/mm3 (4.8-10.8)
[2024-10-29 07:42] LABS: Ferritin 800 ng/ml (17.9-464)
--- NOTE | 2024-10-29 07:44 | P.PN_ITS ---
Subjective *Date: 10/29/24 *Time: 15:45 Interval history: Patient weak today but interactive. Still necessitating two-person assist to get up from bed. Stable on room air. No nausea or vomiting. Hemoglobin remained stable this morning, responded well to transfusion. Poor p.o. intake Medical Exam Vital signs and Labs for Last 24 Hours: Vital Signs Temp Pulse Pulse Resp BP BP Pulse Ox 10/29/24 06:35 10/29/24 05:00 10/29/24 04:54 68 17 153/81 H 94 L 10/29/24 03:00 10/29/24 01:00 10/28/24 23:58 98.5 F 75 16 146/67 H 93 L 10/28/24 23:30 98.8 F 70 17 155/73 H 95 10/28/24 23:00 10/28/24 22:30 97.7 F 70 18 147/63 H 96 10/28/24 21:30 98.2 F 71 17 148/71 H 98 10/28/24 21:30 98.2 F 71 17 148/71 H 98 10/28/24 21:15 98 F 61 16 126/64 96 10/28/24 21:15 98 F 61 16 126/64 96 10/28/24 21:00 10/28/24 21:00 98.3 F 59 L 16 141/55 H 96 10/28/24 21:00 98.3 F 59 L 16 141/55 H 96 10/28/24 20:50 97.9 F 64 18 142/70 H 97 10/28/24 20:45 97.8 F 60 17 137/97 H 98 10/28/24 20:40 97.7 F 68 16 153/69 H 99 10/28/24 20:35 99.2 F 62 16 137/68 98 10/28/24 20:30 98 F 63 17 143/59 H 97 10/28/24 20:10 96.7 F L 60 16 134/64 96 10/28/24 20:00 64 18 96 10/28/24 20:00 97.7 F 64 18 152/72 H 96 10/28/24 19:50 98.0 F 58 L 16 137/63 97 10/28/24 19:05 97.7 F 66 18 146/64 H 98 10/28/24 18:50 97.7 F 61 17 128/55 L 96 10/28/24 18:35 98.0 F 62 18 129/55 L 96 10/28/24 18:32 10/28/24 18:20 97.6 F 69 20 122/59 L 97 10/28/24 18:15 97.6 F 76 19 131/62 95 10/28/24 18:10 97.7 F 71 21 129/53 L 98 10/28/24 18:05 97.8 F 63 18 126/51 L 97 10/28/24 17:40 97.6 F 67 20 146/72 H 95 10/28/24 17:00 10/28/24 16:00 98.1 F 63 18 146/66 H 99 10/28/24 15:00 10/28/24 13:00 10/28/24 10:46 10/28/24 09:00 10/28/24 08:00 10/28/24 08:00 97.6 F 86 18 106/87 L 94 L O2 Del Method 10/29/24 06:35 Room Air 10/29/24 05:00 Room Air 10/29/24 04:54 Room Air 10/29/24 03:00 Room Air 10/29/24 01:00 Room Air 10/28/24 23:58 Room Air 10/28/24 23:30 10/28/24 23:00 Room Air 10/28/24 22:30 10/28/24 21:30 10/28/24 21:30 10/28/24 21:15 10/28/24 21:15 10/28/24 21:00 Room Air 10/28/24 21:00 10/28/24 21:00 10/28/24 20:50 10/28/24 20:45 10/28/24 20:40 10/28/24 20:35 10/28/24 20:30 10/28/24 20:10 10/28/24 20:00 Room Air 10/28/24 20:00 Room Air 10/28/24 19:50 10/28/24 19:05 10/28/24 18:50 10/28/24 18:35 10/28/24 18:32 Room Air 10/28/24 18:20 10/28/24 18:15 10/28/24 18:10 10/28/24 18:05 10/28/24 17:40 10/28/24 17:00 Room Air 10/28/24 16:00 Room Air 10/28/24 15:00 Room Air 10/28/24 13:00 Room Air 10/28/24 10:46 Room Air 10/28/24 09:00 Room Air 10/28/24 08:00 Room Air 10/28/24 08:00 Room Air Intake and Output 10/28/24 10/28/24 10/29/24 15:59 23:59 07:59 Intake Total 240 / 1127 1007 / 1007 Output Total 0 / 0 0 / 0 Balance 0 / 1127 240 / 1127 1007 / 1007 Intake: Intake, Oral Amount 240 / 340 220 / 220 Intake, Other Amount 787 / 787 Intake (Blood Product) Amt 0 / 0 Red Blood Cells Unit 0 / 0 [id number] Red Blood Cells Unit 0 / 0 [id number] Output: Output, Urine Amount 0 / 0 0 / 0 Other: Number of Unmeasured Voids 1 1 Number of Bowel Movements 1 1 Weight 64.41 kg Patient Weight 10/29/24 23:59 Weight 64.41 kg Laboratory Results - last 24 hr 10/28/24 07:46: Blood Type O Positive, Antibody Screen Negative, Crossmatch (AHG) See Detail 10/29/24 00:40: Hgb 8.2 L D, Hct 25.6 L 10/29/24 02:00: Stool Occult Blood Negative 10/29/24 06:07: WBC 4.7 L, RBC 2.97 L, Hgb 8.5 L, Hct 26.9 L, MCV 90.6, MCH 28.6, MCHC 31.6 L, RDW 15.5, Plt Count 139 L, MPV 10.7 H, Neut % (Auto) 68.9, Lymph % (Auto) 19.9, [place] % (Auto) 8.6, Eos % (Auto) 0.9, Baso % (Auto) 0.2, Neut # (Auto) 3.2, Lymph # (Auto) 0.9, [place] # (Auto) 0.4, Eos # (Auto) 0.0, Baso # (Auto) 0.0, Sodium 140, Potassium 3.8, Chloride 112 H, Carbon Dioxide 26, Anion Gap 5.8, BUN 17 D, Creatinine 0.90, Estimated Creat Clear 58, Estimated GFR 82, Est GFR ( Amer) 100 D, Glucose 80, Calcium 8.2 L, Magnesium 1.9, Iron 80, TIBC 138 L, Iron Saturation 57.53799 H, Total Bilirubin 0.6, AST 15 L, ALT 6 L, Alkaline Phosphatase 83, Total Protein 5.3 L, Albumin 3.0 L, Globulin 2.3, Albumin/Globulin Ratio 1.3 I & O for Labs for Last 24 Hours: Intake & Output 10/26/24 10/27/24 10/28/24 10/29/24 23:59 23:59 23:59 23:59 Intake Total 60 / 60 635 / 635 240 / 1127 1007 / 1007 Output Total 0 / 0 750 / 750 0 / 0 Balance -115 / -115 240 / 1127 1007 / 1007 Weight 63.957 kg 65.4 kg 65.816 kg 64.41 kg Microbiology Reports for the Last 24 Hours: Microbiology 10/26/24 09:25 Blood Blood Culture - Preliminary NO GROWTH AFTER 48 HOURS 10/26/24 10:32 Urine,Clean Catch Urine Culture - Final No growth. 10/26/24 08:55 Blood Blood Culture - Preliminary NO GROWTH AFTER 48 HOURS Constitutional: Present no acute distress, thin, chronically ill appearing and cooperative Head: Present atraumatic and normocephalic ENT: Present normal exam Neck: Present normal inspection Respiratory: Present rhonchi and normal respiratory effort; Absent accessory muscle use, wheezes or crackles Cardiac: Present Reg Rate and Rhythm GI: Present soft and tenderness (Right upper quadrant, interval improvement); Absent distention Extremities: Present normal inspection and full ROM Skin: Present intact; Absent erythema Neuro: Present Cranial Nerve 2-12 Intact, Grossly Intact, alert, awake and moves all extremities Comment:: Oriented to self and place Assessment and Plan *Assessment and plan (1) Bilateral pulmonary embolism: Status: Acute Category: Medical Code(s): I26.99 - Other pulmonary embolism without acute cor pulmonale (2) Adult failure to thrive: Status: Acute Category: Medical Code(s): R62.7 - Adult failure to thrive (3) Anemia: Status: Acute Qualifiers: Anemia type: unspecified type Qualified Code(s): D64.9 - Anemia, unspecified Category: Medical Code(s): D64.9 - Anemia, unspecified (4) Stercoral colitis: Status: Acute Category: Medical Code(s): K52.89 - Other specified noninfective gastroenteritis and colitis (5) Sacral wound: Status: Acute Category: Medical Code(s): S31.000A - Unspecified open wound of lower back and pelvis without penetration into retroperitoneum, initial encounter (6) Severe protein-calorie malnutrition: Status: Acute Category: Medical Code(s): E43 - Unspecified severe protein-calorie malnutrition (7) DM type 2 (diabetes mellitus, type 2): Status: Acute Qualifiers: Diabetes mellitus complication status: with other specified complication Diabetes mellitus vermin exterminator insulin use: without shelter use Qualified Code(s): E11.69 - Type 2 diabetes mellitus with other specified complication Category: Medical Code(s): E11.9 - Type 2 diabetes mellitus without complications (8) HTN (hypertension): Status: Chronic Qualifiers: Hypertension type: essential hypertension Qualified Code(s): I10 - Essential (primary) hypertension Category: Medical Code(s): I10 - Essential (primary) hypertension (9) Parkinson disease: Status: Acute Category: Medical Code(s): G20.A1 - Parkinson's disease without dyskinesia, without mention of fluctuations (10) Pneumonia: Status: Acute Category: Medical Code(s): J18.9 - Pneumonia, unspecified organism Plan Hung Maravilla is a 74-year-old [place] with past medical history of Parkinson's disease, hypertension, diabetes, CKD, CVD, anemia, gout, hyperlipidemia, diastolic heart failure who presents due to failure to thrive, falls at home. Patient recently left [facility] because he and the family did not like it, went home. Has had falls, decreased appetite, and failure to thrive. WBC 14.9, with evidence of stercoral colitis on CT. also found to have bilateral PEs on CTA. Case discussed ED provider and decision was made to admit patient for prior to thrive. GI seeing for anemia. Continues to require inpatient management. Working on placement. Problems addressed as follows: #Failure to thrive #Cognitive, functional decline #Bilateral pulmonary emboli #Falls at home #Sacral wound #Parkinson's dementia/disease #Pneumonia ? Unfortunately due to patient's advancing Parkinson's disease, patient has had cognitive and functional disincline for quite some time. Has been in and out of nursing facilities. Given progressive cognitive, functional decline and multiple comorbidities, patient will benefit from goals of care conversation among family. Discussed attempting placement. If not excepted, would like to take him home with home health and the possibility of hospice in the future. ? Continue Eliquis 10 mg twice daily for a week, transition to 5 mg twice daily thereafter - Cardiology consulted to assist with PEs and for outpatient management. No right heart strain. No plan for intervention. -Per CT, has right sided pneumonia. Given his comorbidities with Parkinson's, recent longterm stay, male and age, he is PSI/port class IV risk. Necessitating inpatient management/admission -Zosyn discontinued, transitioned to Augmentin twice daily. White count normal at 4.7. Repeat CBC, CMP, magnesium ordered for the morning. Anemia -Iron saturation 57%, ferritin 800. TIBC 138. Iron level 80; does not appear to be iron deficiency anemia, suspect secondary to chronic disease and malnutrition -Hemoglobin dropped 7 yesterday, 8.5 after transfusion of 2 units. No active signs of bleeding today. Hemoccult negative. Low concern for GI loss. - Transfusion threshold hemoglobin less than or equal to 7 -Continue pantoprazole 40 mg twice daily Fecal impaction Stercoral colitis Severe protein calorie malnutrition ? Continue docusate daily, lactulose 20 g daily. ? PT/OT consulted, recommend SNF. Case management assisting. ? Wound care consulted for sacral wound. Parkinson's disease: Carbidopa/levodopa 4 times a day, caution with delirium medications due to risk for extraparametal symptoms and NMS. CKD: Minimize use of nephrotoxic drugs, BUN 17, creatinine 0.9 Stable today. Diastolic heart failure: Continue Lasix as needed. CVD: Continue statin. Gout: Allopurinol 100 mg p.o. daily Hyperlipidemia: Simvastatin 20 mg p.o. daily DNR/DNI Eliquis Regular diet
[2024-10-29 08:00] VITALS: BP 144/81; PULSE 72; RESP 18; TEMP 36.8; O2SAT 97
[2024-10-29] MEDS: MAGNESIUM SULFATE IN WATER 2 GM/50 ML PIGGYBACK IV (08:48)
[2024-10-29] MEDS: FOLIC ACID 1MG TABLET 1 MG PO (08:49)
[2024-10-29] MEDS: SODIUM CHLORIDE 0.9% 10ML VIAL 10 ML IV ×2 (08:49→20:21)
[2024-10-29] MEDS: LACTULOSE 20GM/30ML UDC 20 GM PO (08:49)
[2024-10-29] MEDS: GABAPENTIN 300MG CAPSULE 300 MG PO ×3 (08:49→20:21)
[2024-10-29] MEDS: PANTOPRAZOLE 40MG VIAL 40 MG IV ×2 (08:49→20:21)
[2024-10-29] MEDS: ALLOPURINOL 100MG TABLET 100 MG PO (08:49)
[2024-10-29] MEDS: CARBIDOPA/LEVODOPA CR 50/200MG TABLET 1 EACH PO ×4 (08:49→20:21)
[2024-10-29] MEDS: APIXABAN 5MG TABLET 10 MG PO ×2 (08:49→20:22)
[2024-10-29] MEDS: DOCUSATE SODIUM 100 MG CAPSULE PO (08:49)
--- NOTE | 2024-10-29 10:53 | HMH.SLDYSPHA ---
Speech & Language Evaluation Speech/Language Dysphagia Evaluation Start: 10/29/24 10:21 Freq: ONCE Status: Active Protocol: Document 10/29/24 10:21 SULY (Rec: 10/29/24 10:53 [facility] [id number]) Co-signed By ST Kayleen Dysphagia Assess/Goals/Plan Assessment Date of Evaluation: 10/29/24 Evaluation Type Initial Certification Assessment/Problems dysphagia coughing severely with thin liquids per MD order Does Patient Qualify for Service Yes Qualify/Failure Comment Based on clinical observations during clinical bedside swallow evaluation and nursing interview, further instrumental assessment is warranted to assess the safety and efficiency of swallow function. Recommendations PHYSICIAN CERTIFICATION: The specified therapy services are required, authorized, and reviewed every 30 days. Diet Recommendations Mechanical Soft Liquid Type Recommendations Normal/Thin SL Swallow Guidelines Assist w/all meals,Alt bite w/ sip thru meal,High aspiration risk,Eat at slow rate,Oral Care Education Dysphagia Swallow Precautions/Strategies Sitting Upright (90 deg), Double Swallow,Supraglottic Swallow,No Straw,Small Bites and Sips,Alternate Liquids/ Solids Plan Pt/Guardian verbally ack understanding Yes of dx/prognosis/goals G -code Required No Education Instructions provided AIRBRUSH PAINTER discussed clinical observations made throughout clinical bedside swallow evaluation, diet recommendations, compensatory strategies, and further instrumental assessment with pt and nursing, each of which expressed understanding. Pt was agreeable to MBSS, however stated that he would not be compliant with recommendations to thicken liquids if observed to be safest option. AIRBRUSH PAINTER left voicemail detailing all of the above. Pt/Caregiver able to recall information Able to recall/restate Reinforcement needed No Speech & Language HPI History Present Illness Description of Patient Problem AIRBRUSH PAINTER pulled the following from pt's H&P and chest CTA: Hung Maravilla is a 74-year -old [place] with past medical history of Parkinson's disease, hypertension, diabetes, CKD, CVD, anemia, gout, hyperlipidemia, diastolic heart failure who presents due to failure to thrive, falls at home. Patient recently [facility] because he and the family did not like it, went home. Has had falls, decreased appetite, and failure to thrive. WBC 14.9, with evidence of stercoral colitis on CT. Case discussed ED provider and decision was made to admit patient for prior to thrive. Chest CTA: Pulmonary emboli in the main pulmonary arteries bilaterally, which extend into the bilateral upper and lower lobe arteries. There is no evidence of right heart strain. There are new interstitial opacities in the right lung, pulmonary edema or pneumonia. Pt/Caregiver Concerns Pt stated that he has been coughing while eating/drinking more lately. Rehab Services Assessed Speech therapy Is this evaluation r/t stroke? No Language Primary Language Greek Therapy History Seen by other SL therapists Yes Who/When/Recommendations Previous hospitalization at [facility]. Pt participated in MBSS, and was recommended regular/ thin liquid no straws. Other Specialists? No General Information General Current Food Consistancy Regular,Thin Liquids Dentition Poor Dentition Oxygen Status Room Air Patient Orientation Person,Place,Time,Situation Ability to Follow Directions Excellent Communication Ability No Impairment Dysphagia:Food Presentation Evaluation Food Type Pureed,Mechanical Soft,Liquid, Pudding Normal/Thin Liquid Response Coughing after swallow,Wet voice Pudding Consistency Liquid Response Residual on tongue,Coughing after swallow,Wet voice Dysphagia Evaluation Pureed Food Coughing after swallow,Wet Behavior Response voice Dysphagia Evaluation Mechanical Soft Residual on tongue,Coughing Food Behavior Response after swallow,Wet voice Dysphagia Evaluation Summary A clinical bedside swallow evaluation was completed this AM, with pt sitting upright in bed, on room air, and with poor dentition. AIRBRUSH PAINTER administered the following bolus consistencies: ice chips , thin liquid (water) via spoon and open cup, nectar thick liquid, pudding, puree ( applesauce), and mechanical soft (Nutrigrain bar). All bolus presentations were administered x2 to assess for fatigue and consistency. Pt was observed to demonstrate overt s/sx of aspiration on thin liquids via open cup, pudding, puree, and mechanical soft trials. S/sx include coughing and wet vocal quality . Lingual residual was observed on pudding and mechanical soft trials. Prolonged mastication and manipulation of bolus was observed on mechanical soft trials. Regular consistency was not trialed d/t pt stating it was too hard. AIRBRUSH PAINTER recommended further instrumental assessment, and mechanical soft/thin liquid diet. Pt expressed that he was not agreeable to modifying diet any further. [employer] notified AIRBRUSH PAINTER that pt will be receiving hospice care at home after d/c and comfort diet is recommended. Stroke Dysphagia Assessment PHYSICIAN CERTIFICATION: I certify the specified therapy services for Hung Maravilla are required, authorized, and reviewed every 30 days.
--- NOTE | 2024-10-29 12:20 | EXP.MED.FU ---
Subjective *Date: 10/29/24 *Time: 12:20 Interval history: Patient asleep but easily awakens. Able to answer multiple questions appropriately. Abdominal pain has resolved. No tenderness with palpation. Dropped his hemoglobin to 7.0, up to 8.5 posttransfusion. Has struggled with anemia for months looking back over lab work. Previously macrocytic and hyperchromic. Currently normocytic and normochromic. Hemoccults negative. Iron levels normal. Exam Data for Last 24 hours Vital signs and Labs for Last 24 Hours: Temp Pulse Resp BP Pulse Ox O2 Del Method O2 Flow Rate 98.2 F 72 18 144/81 H 97 Room Air 3 10/29/24 08:00 10/29/24 08:00 10/29/24 08:00 10/29/24 08:00 10/29/24 08:00 10/29/24 11:00 10/27/24 03:00 Laboratory Results - last 24 hr 10/28/24 07:46: Blood Type O Positive, Antibody Screen Negative, Crossmatch (AHG) See Detail 10/29/24 00:40: Hgb 8.2 L D, Hct 25.6 L 10/29/24 02:00: Stool Occult Blood Negative 10/29/24 06:07: WBC 4.7 L, RBC 2.97 L, Hgb 8.5 L, Hct 26.9 L, MCV 90.6, MCH 28.6, MCHC 31.6 L, RDW 15.5, Plt Count 139 L, MPV 10.7 H, Neut % (Auto) 68.9, Lymph % (Auto) 19.9, [place] % (Auto) 8.6, Eos % (Auto) 0.9, Baso % (Auto) 0.2, Neut # (Auto) 3.2, Lymph # (Auto) 0.9, [place] # (Auto) 0.4, Eos # (Auto) 0.0, Baso # (Auto) 0.0, Sodium 140, Potassium 3.8, Chloride 112 H, Carbon Dioxide 26, Anion Gap 5.8, BUN 17 D, Creatinine 0.90, Estimated Creat Clear 58, Estimated GFR 82, Est GFR ( Amer) 100 D, Glucose 80, Calcium 8.2 L, Magnesium 1.9, Iron 80, TIBC 138 L, Iron Saturation 57.93928 H, Ferritin 800 H D, Total Bilirubin 0.6, AST 15 L, ALT 6 L, Alkaline Phosphatase 83, Total Protein 5.3 L, Albumin 3.0 L, Globulin 2.3, Albumin/Globulin Ratio 1.3 I & O for Last 24 hours: Intake & Output 10/27/24 10/28/24 10/29/24 10/30/24 11:59 11:59 11:59 11:59 Intake Total 593 235 6668 Output Total 450 300 0 Balance -157 879 1957 Weight 65.4 kg 65.816 kg 64.41 kg Microbiology Reports for the Last 24 Hours: Microbiology 10/26/24 09:25 Blood Blood Culture - Preliminary NO GROWTH AFTER 48 HOURS 10/26/24 10:32 Urine,Clean Catch Urine Culture - Final No growth. 10/26/24 08:55 Blood Blood Culture - Preliminary NO GROWTH AFTER 48 HOURS Constitutional Constitutional: no acute distress and chronically ill appearing *Routine HEENT Exam Head: Present normocephalic and atraumatic *Routine Respiratory Exam Respiratory: Present CTA bilaterally *Routine Cardiovascular Exam Cardiovascular: Present RRR *Routine Abdominal Exam Abdominal: Present soft; Absent tenderness *Routine Skin Exam Skin: Present dry and warm Assessment and Plan *Assessment and plan (1) Anemia: Status: Acute Qualifiers: Anemia type: unspecified type Qualified Code(s): D64.9 - Anemia, unspecified Category: Medical Code(s): D64.9 - Anemia, unspecified (2) Generalized abdominal pain: Status: Acute Category: Medical Code(s): R10.84 - Generalized abdominal pain (3) Stercoral colitis: Status: Acute Category: Medical Code(s): K52.89 - Other specified noninfective gastroenteritis and colitis (4) Adult failure to thrive: Status: Acute Category: Medical Code(s): R62.7 - Adult failure to thrive Plan 1. Stercoral colitis/abdominal pain Significant generalized abdominal pain with large amount of stool throughout the colon and resulting inflammatory response. No evidence of complication abscess perforation or infection. White blood cell count normalized. Patient has had multiple BMs since admission. Abdominal pain has resolved. I would recommend continued once daily lactulose as an outpatient to maintain bowel function. 2. anemia Hgb dropped to 7.0, up to 8.5 posttransfusion. Patient has struggled with anemia for multiple months. During hospitalization back in August hemoglobin was just above 9 but macrocytic and hyperchromic. Has been normocytic and normochromic during this admission. Poor p.o. intake since admission in August. Iron levels normal. Hemoccult negative. Does not appear to be GI blood loss.
--- NOTE | 2024-10-29 12:21 | DIET.NUTRFU ---
Spoke to GENERAL CAR YARD SUPERVISOR today, she saw patient and was planning to complete a swallow study. Patient does not want thickened liquids, he was on them at [facility]. He plans to go home with home health and possibly later transition to hospice. Provider felt swallow study not needed at this time, allow him to eat what is tolerated. Diet changed to MSOFT per GENERAL CAR YARD SUPERVISOR recommendations and supplements reordered
--- NOTE | 2024-10-29 13:49 | PC.NURSE ---
Stage 2 pressure ulcers to buttocks. Updated picture uploaded to chart. Patient is being turned q2h and dressings changes multiple times a day due to bowel/bladder incontinence. Wound care therapy following.
[2024-10-29 16:00] VITALS: BP 153/76; PULSE 65; RESP 18; TEMP 36.7; O2SAT 96
[2024-10-29 19:37] VITALS: BP 138/59; PULSE 96; RESP 16; TEMP 36.4; O2SAT 96
[2024-10-29 20:00] VITALS: BP 138/59; PULSE 96; RESP 16; TEMP 36.4; O2SAT 96
[2024-10-29] MEDS: PRAVASTATIN 40MG TAB 40 MG PO (20:22)
[2024-10-29] MEDS: AMOXICILLIN/CLAVULANATE POTASSIUM 875/125MG TABLET 1 EACH PO (20:22)
[2024-10-29 23:59] VITALS: BP 155/63; PULSE 56; RESP 17; TEMP 36.5; O2SAT 95
[2024-10-30 03:50] VITALS: BP 165/76; PULSE 51; RESP 16; TEMP 35.5; BMI 22.1
--- NOTE | 2024-10-30 04:35 | PC.NURSE ---
Patient is alert and oriented; he has appeared much more conversational this shift during wakeful periods. He was observed to have eyes closed, respirations even and unlabored on room air, and no apparent distress for the majority of the night. He was given a bed bath this shift; patient tolerated the bed bath very well. He has assisted staff during turning/repositioning in bed. Heel protectors were applied. The dressing on his bottom was changed this shift due to soiling; barrier cream was also applied around the stage II area. Mild bleeding was noticed during dressing change; no pain was reported. Open tear across the knuckles on his right hand remains bandaged. Redness remains present on lower scrotum. Auscultation of heart, bowels, and lungs within normal findings. Scheduled medications were administered per NOV. Aspiration precautions ongoing. Patient swallowed his PO medications whole with apple juice without difficulties, nor any coughing. Soft mechanical diet tolerated. At this time, the patient is resting in bed without any further complaints. Heart rate currently bradycardic; blood pressures remain elevated. Bed alarm on. Call light within reach.
--- NOTE | 2024-10-30 06:48 | PC.NURSE ---
Service Line Layer informed me at this time that the patient refused to get his morning labs drawn.
[2024-10-30 08:00] VITALS: BP 152/68; PULSE 68; RESP 18; TEMP 37.3; O2SAT 98
[2024-10-30] MEDS: CARBIDOPA/LEVODOPA CR 50/200MG TABLET 1 EACH PO ×2 (08:23→12:18)
[2024-10-30] MEDS: DOCUSATE SODIUM 100 MG CAPSULE PO (08:23)
[2024-10-30] MEDS: GABAPENTIN 300MG CAPSULE 300 MG PO ×2 (08:23→12:18)
[2024-10-30] MEDS: LACTULOSE 20GM/30ML UDC 20 GM PO (08:24)
[2024-10-30] MEDS: SODIUM CHLORIDE 0.9% 10ML VIAL 10 ML IV (08:24)
[2024-10-30] MEDS: APIXABAN 5MG TABLET 10 MG PO (08:24)
[2024-10-30] MEDS: AMOXICILLIN/CLAVULANATE POTASSIUM 875/125MG TABLET 1 EACH PO (08:24)
[2024-10-30] MEDS: FOLIC ACID 1MG TABLET 1 MG PO (08:24)
[2024-10-30] MEDS: ALLOPURINOL 100MG TABLET 100 MG PO (08:24)
[2024-10-30] MEDS: PANTOPRAZOLE 40MG VIAL 40 MG IV (08:24)
--- NOTE | 2024-10-30 09:28 | P.DS_ITS ---
General Admission date:: 10/26/24 Discharge date: 10/30/24 HPI HPI HPI: Hung Maravilla is a 74-year-old [employer] with past medical history of Parkinson's disease, hypertension, diabetes, CKD, CVD, anemia, gout, hyperlipidemia, diastolic heart failure who presents due to failure to thrive, falls at home. Patient recently left [facility] because he and the family did not like it, went home. Has had falls, decreased appetite, and failure to thrive. WBC 14.9, with evidence of stercoral colitis on CT. Case discussed ED provider and decision was made to admit patient for prior to thrive . Hospital Course Hospital Course Hospital Course: Hung Maravilla is a 74-year-old [employer] with past medical history of Parkinson's disease, hypertension, diabetes, CKD, CVD, anemia, gout, hyperlipidemia, diastolic heart failure who presents due to failure to thrive, falls at home. Patient recently left [facility] because he and the family did not like it, went home. Has had falls, decreased appetite, and failure to thrive. WBC 14.9, with evidence of stercoral colitis on CT. also found to have bilateral PEs on CTA. Case discussed ED provider and decision was made to admit patient for prior to thrive. GI seeing for anemia. Patient's hemoglobin was stable during admission. Had bowel movements with resolution of stercoral colitis. Attempts made to refer to rehab, patient declined by local facilities, family did not want to look outside the area. Plan to take patient home with home health. If patient shows continued decline, family open to considering hospice after much discussion about goals of care. Stable discharged to the care of family with home health. Problems addressed as follows #Failure to thrive #Cognitive, functional decline #Bilateral pulmonary emboli #Falls at home #Sacral wound #Parkinson's dementia/disease #Pneumonia ? Unfortunately due to patient's advancing Parkinson's disease, patient has had cognitive and functional disincline for quite some time. Has been in and out of nursing facilities. Given progressive cognitive, functional decline and multiple comorbidities, goals of care discussion had with family. Attempted placement, unfortunately was declined by local facilities. After much discus juaquin, will discharge home with family with the assistance of home health. If does not show improvement, family is considering consulting hospice. -Patient remained stable on room air in light of his bilateral PEs. Started on Eliquis. Will continue 7 days of 10 mg twice daily, transition to 5 mg twice daily thereafter. - Cardiology consulted to assist with PEs and for outpatient management. No right heart strain. No plan for intervention. -Per CT, has right sided pneumonia. Given his comorbidities with Parkinson's, recent longterm stay, male and age, he is PSI/port class IV risk. Necessitating inpatient management/admission. Initially treated with Zosyn. Transition to Augmentin twice daily to complete 7-day therapy for pneumonia. White count normalized. Remained afebrile and on room air. No labs obtained on day of discharge due to stability of white count and clinical stability of patient Anemia -Iron saturation 57%, ferritin 800. TIBC 138. Iron level 80; does not appear to be iron deficiency anemia, suspect secondary to chronic disease and malnutrition. Hemoglobin dropped to 7 during admission, improved to 8.5 after transfusion of 2 units. Remained stable in the mid 8 range. No active signs of bleeding. Hemoccult negative. GI evaluated, no plan for intervention at this time. Continue pantoprazole 40 mg daily Fecal impaction Stercoral colitis Severe protein calorie malnutrition ? Had large bowel movement. Continue lactulose daily to promote regular bowel movements. Therapy worked with patient during admission, recommended SNF but I am unable to get patient placed. Will discharge home with home health. Continue regular diet with supplementation. Parkinson's disease: Carbidopa/levodopa 4 times a day, caution with delirium medications due to risk for extraparametal symptoms and NMS. CKD: Minimize use of nephrotoxic drugs, BUN 17, creatinine 0.9 Stable. Diastolic heart failure: Continue Lasix as needed. CVD: Continue statin. Gout: Allopurinol 100 mg p.o. daily Hyperlipidemia: Simvastatin 20 mg p.o. daily Total time spent on discharge 32 minutes in counseling, documentation, chart review, and direct care with patient. Exam Data for Last 24 hours Vital signs and Labs for Last 24 Hours: Temp Pulse Resp BP Pulse Ox O2 Del Method O2 Flow Rate 99.2 F 68 18 152/68 H 98 Room Air 3 10/30/24 08:00 10/30/24 08:00 10/30/24 08:00 10/30/24 08:00 10/30/24 08:00 10/30/24 08:00 10/27/24 03:00 Laboratory Results - last 24 hr 10/28/24 07:46: Crossmatch ([facility]) See Detail I & O for Last 24 hours: Intake & Output 10/27/24 10/28/24 10/29/24 10/30/24 23:59 23:59 23:59 23:59 Intake Total 635 / 635 240 / 1127 184 / 2046 200 / 200 Output Total 750 / 750 0 / 0 0 / 0 0 / 0 Balance -115 / -115 240 / 1127 184 / 2046 200 / 200 Weight 65.4 kg 65.816 kg 64.41 kg 67.631 kg Microbiology Reports for the Last 24 Hours: Microbiology 10/26/24 08:55 Blood Blood Culture - Preliminary NO GROWTH AFTER 4 DAYS Constitutional Constitutional: no acute distress, thin, chronically ill appearing and cooperative *Routine HEENT Exam Head: Present normocephalic and atraumatic Eye: Present EOMI and PERRL ENT: Present mucous membranes moist *Routine Neck Exam Neck: Present supple; Absent lymphadenopathy *Routine Respiratory Exam Respiratory: Present CTA bilaterally and normal respiratory effort; Absent respiratory distress, rhonchi, wheezes or crackles *Routine Cardiovascular Exam Cardiovascular: Present RRR *Routine Abdominal Exam Abdominal: Present soft and normoactive bowel sounds; Absent tenderness *Routine Rectal Exam Patient deferred: visual exam *Routine Exam Patient deferred: penile exam *Routine Extremities Exam Extremities: Absent cyanosis, clubbing or edema Comments: sarcopenia *Routine Skin Exam Skin: Present intact and warm; Absent rash *Routine Neurological Exam Neurological: Present alert, CN II-XII intact and moving all extremities; Absent altered mental status Comments: cogwheeling in UE Bilat. globally weak. Needing assistance to ambulate. Results Data Completed and Pending Labs on day of discharge: Labs from last 24 hours 10/28/24 07:46 Crossmatch ([facility]) See Detail Preliminary micro results at discharge 10/26/24 08:55 Blood Culture - Preliminary Blood NO GROWTH AFTER 4 DAYS 10/26/24 09:25 Blood Culture - Preliminary Blood NO GROWTH AFTER 48 HOURS DS: Diagnosis Discharge Diagnosis (1) Bilateral pulmonary embolism: Status: Acute Code(s): I26.99 - Other pulmonary embolism without acute cor pulmonale (2) Adult failure to thrive: Status: Acute Code(s): R62.7 - Adult failure to thrive (3) Anemia: Status: Acute Code(s): D64.9 - Anemia, unspecified Qualifiers: Anemia type: unspecified type Qualified Code(s): D64.9 - Anemia, unspecified (4) Stercoral colitis: Status: Acute Code(s): K52.89 - Other specified noninfective gastroenteritis and colitis (5) Sacral wound: Status: Acute Code(s): S31.000A - Unspecified open wound of lower back and pelvis without penetration into retroperitoneum, initial encounter (6) Severe protein-calorie malnutrition: Status: Acute Code(s): E43 - Unspecified severe protein-calorie malnutrition (7) DM type 2 (diabetes mellitus, type 2): Status: Acute Code(s): E11.9 - Type 2 diabetes mellitus without complications Qualifiers: Diabetes mellitus complication status: with other specified complication Diabetes mellitus long distance operator insulin use: without shelter use Qualified Code(s): E11.69 - Type 2 diabetes mellitus with other specified complication (8) HTN (hypertension): Status: Chronic Code(s): I10 - Essential (primary) hypertension Qualifiers: Hypertension type: essential hypertension Qualified Code(s): I10 - Essential (primary) hypertension (9) Parkinson disease: Status: Acute Code(s): G20.A1 - Parkinson's disease without dyskinesia, without mention of fluctuations (10) Pneumonia: Status: Acute Code(s): J18.9 - Pneumonia, unspecified organism Meds Home Medications and Allergies Home Medications ?Medication ?Instructions ?Recorded ?Confirmed ?Type docusate sodium 50 mg capsule 100 mg PO DAILY 12/18/23 10/26/24 History simvastatin 20 mg tablet 20 mg PO HS 90 days #90 tabs 12/25/23 10/26/24 Rx pantoprazole 40 mg tablet,delayed 40 mg PO BID 06/18/24 10/26/24 History release carbidopa ER 50 mg-levodopa 200 mg 1 tab PO QID #120 tabs 06/24/24 10/26/24 Rx tablet,extended release aspirin 81 mg tablet,delayed 81 mg PO DAILY 07/08/24 10/26/24 History release (Adult Low Dose Aspirin) mecobalamin (vitamin B12) 1,000 1,000 mcg PO DAILY 07/08/24 10/26/24 History mcg lozenges allopurinol 100 mg tablet 100 mg PO DAILY 08/24/24 10/26/24 History entacapone 200 mg tablet 200 mg PO QID 08/24/24 10/26/24 History folic acid 1 mg tablet 1 mg PO DAILY 08/24/24 10/26/24 History furosemide 20 mg tablet 20 mg PO DAILYP PRN edema 08/24/24 10/26/24 History gabapentin 600 mg tablet 300 mg (1/2 x 600 mg) PO TID 30 08/31/24 10/26/24 Rx days #45 tabs hydrocodone 10 mg-acetaminophen 1 tab PO Q6HP PRN Moderate Pain 10/20/24 10/26/24 Rx 325 mg tablet (Scale Score 5-6) 30 days #120 tabs amoxicillin 875 mg-potassium 1 tab PO BID 3 days #6 tabs 10/30/24 Rx clavulanate 125 mg tablet apixaban 5 mg tablet (Eliquis) See Rx Instructions .Route 10/30/24 Rx .COMPLEX #68 tabs lactulose 10 gram oral packet 20 g PO DAILY #30 ea 10/30/24 Rx New Prescriptions to Start Prescriptions: amoxicillin-pot clavulanate Polo Davidson apixaban [Eliquis] Polo Davidson lactulose Polo Davidson Allergies Allergy/AdvReac Type Severity Reaction Status Date / Time mupirocin Allergy Rash Verified 08/24/24 12:12 Discharge Plan Disposition Patient Disposition: Home Health Service Condition: Good Discharge Order Discharge Orders: Discharge Order (Routine); Ordered 10/30/24 Ordered By: Polo Davidson Follow up Plan Follow up with: Kwan Beth DO [Primary Care Provider] - 11/04/24 1:20 pm Prescriptions/Medication Reconciliation: New lactulose 10 gram packet 20 g PO DAILY Qty: 30 0RF amoxicillin-pot clavulanate 875-125 mg Tablet 1 tab PO BID 3 Days Qty: 6 0RF Eliquis 5 mg Tablet See Rx Instructions .ROUTE .COMPLEX Qty: 68 0RF Rx Instructions: 10mg (2 tabs) BID for 4 days followed by 5mg (1 tab) bid thereafter for at least 3 months Continued docusate sodium 50 mg capsule 100 mg PO DAILY carbidopa-levodopa 50-200 mg tablet extended release 1 tab PO QID Qty: 120 4RF mecobalamin (vitamin B12) 1,000 mcg lozenge 1,000 mcg PO DAILY Rx Instructions: allow to dissolve in mouth OR may chew lightly before swallowing simvastatin 20 mg tablet 20 mg PO HS 90 Days Qty: 90 4RF aspirin [Adult Low Dose Aspirin] 81 mg tablet,delayed release (DR/EC) 81 mg PO DAILY hydrocodone-acetaminophen 10-325 mg tablet 1 tab PO Q6HP PRN (Reason: Moderate Pain (Scale Score 5-6)) 30 Days Qty: 120 0RF pantoprazole 40 mg tablet,delayed release (DR/EC) 40 mg PO BID Patient Comments: TAKE ONE TABLET BY MOUTH TWICE DAILY folic acid 1 mg tablet 1 mg PO DAILY Patient Comments: TAKE ONE TABLET BY MOUTH EVERY DAY allopurinol 100 mg tablet 100 mg PO DAILY entacapone 200 mg tablet 200 mg PO QID Rx Instructions: administer at the same time as l-dopa/carbidopa dose furosemide 20 mg tablet 20 mg PO DAILYP PRN (Reason: edema) gabapentin 600 mg tablet 300 mg PO TID 30 Days Qty: 45 0RF Problem Reconciliation Problems Reviewed?: Yes Patient Discharge Instructions ACTIVITY: Continue current activity DIET: continue same diet Patient Instructions: DI for Pulmonary Embolism, DI for Failure to Thrive Print Language: Lebanese Providers Primary Care Provider: Kwan Beth Admit Provider: Kwan Cade Attending Provider: Kwan Cade
--- NOTE | 2024-11-02 10:59 | SW/DCPLANNER ---
Spoke with patients on the phone. Patients stated that he is doing much better. Patients stated that they are aware of his upcoming appointment. Patients stated that they were able to get his new medicine picked up. Patients asked about how to get the big bandages for her husbands dressing and suggested that she ask home health. Patients asked how to get chucks and the big diapers that we have here and i told that she would have to orde rthem from [facility] or get them from [facility]. Magy Baptiste
== END 2024-10-30 13:15 | disposition home health service (06) | DRG 388 ==
LOC: ER 10:59 → 2ND 11:09
PROVIDERS: Nurse Practitioner Family; Admitting Provider Student in an Organized Health Care Education/Training Program; Emergency Provider Emergency Medicine; PCP Internal Medicine; Visit Provider Student in an Organized Health Care Education/Training Program
DX: K56.41 Fecal impaction (principal); E43 Unspecified severe protein-calorie malnutrition; I26.99 Other pulmonary embolism without acute cor pulmonale; J18.9 Pneumonia, unspecified organism; I26.94 Multiple subsegmental thrombotic pulmonary emboli without acute cor pulmonale; I50.32 Chronic diastolic (congestive) heart failure; I13.0 Hypertensive heart and chronic kidney disease with heart failure and stage 1 through stage 4 chronic kidney disease, or unspecified chronic kidney disease; R62.7 Adult failure to thrive; K52.89 Other specified noninfective gastroenteritis and colitis; G20.A1 Parkinson's disease without dyskinesia, without mention of fluctuations; I11.0 Hypertensive heart disease with heart failure; M10.9 Gout, unspecified; F02.80 Dementia in other diseases classified elsewhere, unspecified severity, without behavioral disturbance, psychotic disturbance, mood disturbance, and anxiety; E78.5 Hyperlipidemia, unspecified; E11.22 Type 2 diabetes mellitus with diabetic chronic kidney disease; L89.151 Pressure ulcer of sacral region, stage 1; D64.89 Other specified anemias; N18.30 Chronic kidney disease, stage 3 unspecified; K21.9 Gastro-esophageal reflux disease without esophagitis; Z87.891 Personal history of nicotine dependence; Z68.22 Body mass index [BMI] 22.0-22.9, adult; Z79.899 Other long term (current) drug therapy; Z79.82 Long term (current) use of aspirin; Z79.891 Long term (current) use of opiate analgesic; Z91.81 History of falling; Z79.01 Long term (current) use of anticoagulants; Z90.49 Acquired absence of other specified parts of digestive tract; Z86.73 Personal history of transient ischemic attack (TIA), and cerebral infarction without residual deficits; Z85.520 Personal history of malignant carcinoid tumor of kidney; Z88.1 Allergy status to other antibiotic agents
CPT/HCPCS: 36415; 51702; 70450; 71275; 74177; 80053; 81001; 82009; 82272; 82728; 82803; 83540; 83550; 83605; 83690; 83735; 83880; 84100; 84436; 84443; 84484; 85014; 85018; 85025; 86850; 87040; 87086; 87636; 92610; 93005; 93306; 97116; 97163; 97166; 97530; 97535; 99291; G0328; J1650; J2405; J2543; J3475; J7120; P9016; Q9967